=== PATIENT | male | born 1955 | race American Indian/Alaskan Native ===

== ENCOUNTER 2018-06-18 10:48 | Emergency (ER) | payer MEDICAID, OTHER, SELFPAY ==
[2018-06-18 10:59] VITALS: BP 193/106; PULSE 88; RESP 18; TEMP 36.7; O2SAT 96; BMI 31.3
--- NOTE | 2018-06-18 12:35 | DI.RAD.S_ITS ---
PROCEDURE: XR FOOT RT MIN 3V INDICATIONS: foot pain TECHNIQUE: 3 views of the foot were acquired. COMPARISON: [facility], , FOOT 3V LEFT, 03/05/2017, 13:22. FINDINGS: Bones: No fractures or dislocations. There is mild mid foot degeneration. No suspicious bony lesions. Soft tissues: No tibiotalar joint effusion. Achilles tendon appears normal. IMPRESSION: 1. No fracture or dislocation. Dictated by: Jose Whitmore M.D. on 06/18/2018 at 13:28 Approved by: Jose Whitmroe M.D. on 06/18/2018 at 13:28
[2018-06-18] MEDS: ACETAMINOPHEN 325 MG TABLET 650 MG PO (13:17)
[2018-06-18 14:38] VITALS: BP 189/92; PULSE 83; RESP 20; O2SAT 97
--- NOTE | 2018-06-18 18:42 | ED_ITS ---
HPI - Extremity Problem General Chief complaint: Extremity Problem,Nontraumatic Stated complaint: BONE SPUR RT FOOT Time Seen by Provider: 06/18/18 12:08 Source: patient Mode of arrival: ambulatory Limitations: no limitations History of Present Illness HPI Narrative: patient is a 63-year-old male who presents with bilateral foot pain. He states he has been ongoing for about a week progressively getting worse. He but new insoles for his issues and supportive shoes however it does not seem to help. It seems to be worse at nighttime. He feels like he might have a bone spur. He denies any injury. He does have an on both his feet but more so on the right than the left. MD Complaint: extremity pain Related Data Home Medications Medication Instructions Recorded Confirmed ASPIRIN/DIPYRIDAMOLE (Aggrenox 25 1 cer PO BID #0 05/06/11 MG-200 MG Capsule) amlodipine [Norvasc] 5 mg PO QDAY #0 12/11/12 Previous Rx's Medication Instructions Recorded clindamycin HCl 300 mg PO Q6H #15 cap 01/02/17 prednisone 40 mg PO Q DAY 4 Days #0 tab 01/02/17 tramadol 50 mg PO Q6H PRN #10 tab 06/18/18 Allergies Allergy/AdvReac Type Severity Reaction Status Date / Time celecoxib [From CELEBREX] Allergy Unknown Verified 06/18/18 12:46 lisinopril [LISINOPRIL] Allergy Unknown Verified 06/18/18 12:46 meloxicam [MELOXICAM] Allergy Unknown ANAPHYLAXSI Verified 06/18/18 12:46 S Penicillins [PENICILLINS] Allergy Unknown Verified 06/18/18 12:46 Review of Systems Review of Systems GENERAL: Denies chills,fever HEENT: Denies throat pain RESPIRATORY: Denies dyspnea, cough, wheezing CARDIOVASCULAR: Denies chest pain, palpitations GASTROINTESTINAL: Denies nausea, vomiting MUSCULOSKELETAL: See HPI SKIN: No rash, no laceration, no pruritus NEUROLOGIC: Denies weakness, dizziness, headache, numbness 8 point review of systems is negative except for those stated above and HPI PFSH Medical History Coronary artery disease (Acute) Hypertension (Acute) Social History Smoking Status: Former smoker alcohol intake: never substance use type: does not use Social History Smoking Status: Former smoker alcohol intake: never substance use type: does not use Exam Initial Vital Signs Initial Vital Signs: Vital Signs Temperature 98.1 F 06/18/18 10:59 Pulse Rate 88 06/18/18 10:59 Respiratory Rate 18 06/18/18 10:59 Blood Pressure 193/106 H 06/18/18 10:59 Pulse Oximetry 96 06/18/18 10:59 GENERAL: Well-appearing, well-nourished and in no acute distress. CARDIOVASCULAR: peripheral pulses in tact, cap refill <2 sec RESPIRATORY: No respiratory distress, speaks in full sentences without difficulty EXTREMITIES: Normal range of motion, no clubbing or edema. Neurovascularly intact. - right foot no injury is stable no Achilles pain able to flex and extend. Peripheral pulses intact. NEUROLOGICAL: Cranial nerves II through XII grossly intact. Normal gait and speech. SKIN: Warm, dry, no petechiae, no rashes or lesions. Course Orders Ordered: ED Orders 06/18/18 12:35 XR foot RT min 3V Stat Discontinued Medications Acetaminophen (Tylenol) 650 mg PO NOW ONE Stop: 06/18/18 12:36 Last Admin: 06/18/18 13:17 Dose: 650 mg Vital Signs - 8 hr 06/18/18 10:59 06/18/18 14:38 Temperature 98.1 F Pulse Rate 88 83 Respiratory Rate 18 20 Blood Pressure 193/106 H 189/92 H Pulse Oximetry 96 97 MDM - Extremity (Nontraumatic) Imaging Data Right foot x-ray: Radiologist's impression: PROCEDURE: XR FOOT RT MIN 3V INDICATIONS: foot pain TECHNIQUE: 3 views of the foot were acquired. COMPARISON: [facility], , FOOT 3V LEFT, 03/05/2017, 13:22. FINDINGS: Bones: No fractures or dislocations. There is mild mid foot degeneration. No suspicious bony lesions. Soft tissues: No tibiotalar joint effusion. Achilles tendon appears normal. IMPRESSION: 1. No fracture or dislocation. Dictated by: Jose Whitmore M.D. on 06/18/2018 at 13:28 Discharge Plan Departure Patient Disposition: Home Clinical Impression: Right foot sprain Qualifiers: Encounter type: initial encounter Qualified Code(s): S93.601A - Unspecified sprain of right foot, initial encounter Discharge Date/Time: 06/18/18 14:38 Interventions: ED Discharge Assessment Last Done: 06/18/18 14:38 Activity Restrictions/Additional Instructions: *You have been diagnosed with Right foot sprain *What to do: where good supportive shoes, increase activity as tolerated *Continue to take medications as directed - Tylenol 650 mg every 4-6 hours if needed for mild pain during the day - tramadol 50 mg at night or every 6 hr if needed for severe pain *Follow up with your primary care provider in 2-3 days *Return to ER if you should have increasing pain, numbness, tingling or any new, worsening or concerning symptoms Prescriptions: New tramadol 50 mg tablet 50 mg PO Q6H PRN (Reason: pain) Qty: 10 RF: 0 No Action ASPIRIN/DIPYRIDAMOLE (Aggrenox 25 MG-200 MG Capsule) 1 cer PO BID Qty: 0 RF: 0 amlodipine [Norvasc] 5 MG tablet 5 mg PO QDAY Qty: 0 RF: 0 clindamycin HCl 300 MG capsule 300 mg PO Q6H Qty: 15 RF: 0 prednisone 20 MG tablet 40 mg PO Q DAY 4 Days Qty: 0 RF: 0 Referrals: Margaret Siegel MD [Primary Care Provider] -
== END 2018-06-18 14:38 | disposition home or self-care (01) ==
PROVIDERS: Emergency Provider Emergency Medicine; Family Provider Family Medicine; PCP Family Medicine
DX: S93.601A Unspecified sprain of right foot, initial encounter (principal)
CPT/HCPCS: 73630; 99282; 99283

== ENCOUNTER 2018-11-21 10:38 | Emergency (ER) | payer MEDICAID, OTHER, SELFPAY ==
[2018-11-21 10:41] VITALS: BP 159/82; PULSE 79; RESP 14; TEMP 36.7; O2SAT 99
--- NOTE | 2018-11-21 11:54 | ED.SKABFB ---
HPI - Skin/Abscess/Foreign Bdy <VALERIO Kirby - Last Filed: 11/21/18 20:41> General Chief complaint: Skin/Abscess/Foreign Body Stated complaint: swelling in head Time Seen by Provider: 11/21/18 11:21 Source: patient Mode of arrival: ambulatory Limitations: no limitations History of Present Illness HPI narrative: The patient is a 63-year-old male former smoker with history of CHF who presents with chief complaint of head swelling. He states he fell back in July, had an injury with bruising to his head. He takes Plavix, was knocked out and was evaluated at [facility] emergency department, where he states he received a head CT. He states that the swelling has gone down. However he noticed swelling to his head a few days ago, that is increasingly painful. Seen at [facility] and [place] a few days ago, and had a head CT done. He denies any fevers vomiting or diarrhea. He has not taken anything for the pain. The patient denies any trauma since his initial fall. He has not taken anything for pain. Related Data Home Medications Medication Instructions Recorded Confirmed acetaminophen 1,000 mg PO Q6H PRN 11/21/18 11/21/18 carvedilol 25 mg PO BID 11/21/18 11/21/18 clopidogrel [Plavix] 75 mg PO DAILY 11/21/18 11/21/18 Previous Rx's Medication Instructions Recorded sulfamethoxazole-trimethoprim 1 tab PO BID #14 tab 11/21/18 [Bactrim DS] tramadol 50 mg PO Q6H PRN #7 tab 11/21/18 Allergies Allergy/AdvReac Type Severity Reaction Status Date / Time NSAIDS (Non-Steroidal Allergy Severe Swelling Verified 11/21/18 10:44 Anti-Inflamma of Lip/Tongue/Throat celecoxib [From CELEBREX] Allergy Unknown Verified 11/21/18 10:44 lisinopril [LISINOPRIL] Allergy Unknown Verified 11/21/18 10:44 meloxicam [MELOXICAM] Allergy Unknown ANAPHYLAXSI Verified 11/21/18 10:44 S Penicillins [PENICILLINS] Allergy Unknown Verified 11/21/18 10:44 Review of Systems <VALERIO Kirby - Last Filed: 11/21/18 20:41> Review of Systems GENERAL: Denies chills, fatigue, malaise, fever, sweats. HEENT: Denies sinus pain, ear pain, sore throat, difficulty swallowing, dizziness. RESPIRATORY: Denies dyspnea, cough, wheezing, hemoptysis, sputum. CARDIOVASCULAR: Denies chest pain, palpitations, orthopnea, edema, GASTROINTESTINAL: Denies nausea, vomiting, abdominal pain, diarrhea, constipation, melena. : Denies dysuria, frequency, incontinence, hematuria, urinary retention. MUSCULOSKELETAL: denies weakness, joint pain, or bony pain SKIN: See HPI NEUROLOGIC: Denies weakness, headache, numbness, change in speech, confusion, seizures, incoordination. PSYCHIATRIC: No concerning psychosocial issues. 12 point review of systems is negative except for those stated above PFSH <VALERIO Kirby - Last Filed: 11/21/18 20:41> Medical History Coronary artery disease (Acute) Hypertension (Acute) Social History Smoking Status: Former smoker alcohol intake: never substance use type: does not use Social History Smoking Status: Former smoker alcohol intake: never substance use type: does not use Exam <VALERIO Kirby - Last Filed: 11/21/18 20:41> Narrative Exam Narrative: GENERAL: This is a well-nourished, well-developed patient, in mild distress. HEAD: Atraumatic. Normocephalic. No temporal or scalp tenderness. EYES: Pupils equal round and reactive. Extraocular motions intact. No scleral icterus. No injection or drainage. ENT: Nose without bleeding, purulent drainage or septal hematoma. Throat without erythema, tonsillar hypertrophy or exudate. Uvula midline. Airway patent. NECK: Trachea midline. No JVD or lymphadenopathy. Supple, nontender, no meningeal signs. CARDIOVASCULAR: Regular rate and rhythm without murmurs, gallops, or rubs. RESPIRATORY: Clear to auscultation. Breath sounds equal bilaterally. No wheezes, rales, or rhonchi. No cough. No increased respiratory effort. No accessory muscle use. GASTROINTESTINAL: Abdomen soft, non-tender, nondistended. No hepato-splenomegaly, or palpable masses. No guarding. EXTREMITIES: No clubbing, cyanosis, or edema. No joint tenderness, effusion, or edema noted. BACK: Nontender without deformity or crepitance. No flank tenderness. NEURO: AOx3. SKIN: 2 x 2 cm palpable mass noted right occiput. Firm to palpation. No overt overlying erythema. Initial Vital Signs Initial Vital Signs: Vital Signs Temperature 98.1 F 11/21/18 10:41 Pulse Rate 79 11/21/18 10:41 Respiratory Rate 14 11/21/18 10:41 Blood Pressure 159/82 H 11/21/18 10:41 Pulse Oximetry 99 11/21/18 10:41 <Awilda Romero DO - Last Filed: 11/22/18 19:47> Initial Vital Signs Initial Vital Signs: Vital Signs Temperature 98.1 F 11/21/18 10:41 Pulse Rate 79 11/21/18 10:41 Respiratory Rate 14 11/21/18 10:41 Blood Pressure 159/82 H 11/21/18 10:41 Pulse Oximetry 99 11/21/18 10:41 Course <FAVIO Kirby-BC - Last Filed: 11/21/18 20:41> Course Narrative: Images were obtained as well as an emergency department report from 11/18 at [place]. Illustrate the patient presented with a chief complaint of right occipital swelling and pain. He was initially seen there on August 12, had a head CT which showed a large right posterior scalp hematoma. The patient received a head CT on 11/18, which illustrated no acute intracranial pathology. CT also illustrated an organizing hematoma with no gross skull fracture. I elected to not reimage the patient today. Orders Ordered: ED Orders 11/21/18 13:00 Wound Culture and Gram Stain Stat Vital Signs - 8 hr 11/21/18 10:41 Temperature 98.1 F Pulse Rate 79 Respiratory Rate 14 Blood Pressure 159/82 H Pulse Oximetry 99 <Awilda Romero DO - Last Filed: 11/22/18 19:47> Orders Ordered: ED Orders 11/21/18 13:00 Wound Culture and Gram Stain Stat Vital Signs - 8 hr 11/21/18 10:41 Temperature 98.1 F Pulse Rate 79 Respiratory Rate 14 Blood Pressure 159/82 H Pulse Oximetry 99 MDM - Skin/Abscess/Foreign Bdy <Awildasangeeta RappALICIAP-BC - Last Filed: 11/21/18 20:41> [facility] Narrative Medical decision making narrative: The patient's abscess spontaneously burst injury and copious purulence drainage, it was cleansed in a wound culture was obtained. I placed him on Bactrim. I did give him a prescription of tramadol for pain. Encouraged [id number] medications as needed and able. Discussed the tramadol can be constipating and sedating. Wound cultures pending at this time. Discussed at length follow up with PCP. Discussed coming back to the ER for any acute signs of infection such as fever, inability keep down fluids etc. Discharge Plan Departure Patient Disposition: Home Clinical Impression: Abscess Discharge Date/Time: 11/21/18 12:58 Interventions: ED Discharge Assessment Last Done: 11/21/18 12:58 Instructions: DI for Skin Abscess Activity Restrictions/Additional Instructions: I have placed you on antibiotics. A wound cultures pending at this time. If we need to change antibiotics, we will give you a call. I have given you a prescription of prescription pain medication. Be aware this can be constipating and sedating. Please monitor for fever, vomiting etc. Please come back to the ER for any acute concerns. Please follow up with primary care provider in the next few days. Prescriptions: New sulfamethoxazole-trimethoprim [Bactrim DS] 800-160 mg tablet 1 tab PO BID Qty: 14 RF: 0 tramadol 50 mg tablet 50 mg PO Q6H PRN (Reason: pain) Qty: 7 RF: 0 No Action carvedilol 25 mg Tablet 25 mg PO BID RF: 0 clopidogrel [Plavix] 75 mg Tablet 75 mg PO DAILY RF: 0 acetaminophen 500 mg Tablet 1,000 mg PO Q6H PRN (Reason: Pain (Scale Score 1-3)) RF: 0 Referrals: Margaret Siegel MD [Primary Care Provider] - <Awilda Romero DO - Last Filed: 11/22/18 19:47> Cosign ED Attending Cosluliature Attestation: I was immediately available in the department for consultation. This documentation has been reviewed and I agree with assessment and plan. Supervised by Awilda Romero DO
== END 2018-11-21 12:58 | disposition home or self-care (01) ==
PROVIDERS: Emergency Provider Nurse Practitioner Family; Family Provider Family Medicine; PCP Family Medicine
DX: L02.91 Cutaneous abscess, unspecified (principal)
CPT/HCPCS: 87070; 87147; 87205; 99283

== ENCOUNTER 2019-01-23 20:32 | Emergency (ER) | payer MEDICAID, OTHER, SELFPAY ==
[2019-01-23 20:45] VITALS: BP 137/74; PULSE 67; RESP 16; TEMP 36.9; O2SAT 97; BMI 27.7
[2019-01-23 21:09] VITALS: BP 198/111; PULSE 88; RESP 15; TEMP 36.9; O2SAT 97; BMI 40.7
--- NOTE | 2019-01-23 21:12 | DI.RAD.S_ITS ---
PROCEDURE: XR FOREARM RT 2V INDICATIONS: glf,c/o right hand and forearm pain TECHNIQUE: 2 views of the forearm were acquired. COMPARISON: [facility], , FOREARM RIGHT, 05/02/2007, 12:46. FINDINGS: Bones: No fractures or dislocations. No suspicious bony lesions. Soft tissues: No suspicious soft tissue calcifications or masses. IMPRESSION: No acute osseous abnormality. Dictated by: Jared Mckeon M.D. on 01/23/2019 at 22:29 Approved by: aJred Mckeon M.D. on 01/23/2019 at 22:30
--- NOTE | 2019-01-23 21:12 | DI.RAD.S_ITS ---
PROCEDURE: XR WRIST RT MIN 3V INDICATIONS: glf, c/o right hand and forearm pain TECHNIQUE: 3 views of the wrist were acquired. COMPARISON: [facility], WRIST MINIMUM 3 VIEWS RIGHT, 01/30/2008, 17:36. [facility], WRIST MINIMUM 3 VIEWS RIGHT, 05/02/2007, 12:43. FINDINGS: Bones: No fractures or dislocations. No suspicious bony lesions. Soft tissues: No suspicious soft tissue calcifications. IMPRESSION: No acute osseous abnormality. Dictated by: Jared Mckeon M.D. on 01/23/2019 at 22:26 Approved by: Jared Mckeon M.D. on 01/23/2019 at 22:28
--- NOTE | 2019-01-23 21:12 | DI.RAD.S_ITS ---
PROCEDURE: XR HAND RT MIN 3V INDICATIONS: glf,c/o right hand and forearm pain TECHNIQUE: Pre-views of the hand(s) acquired. COMPARISON: [facility], , HAND 3V RIGHT, 05/02/2007, 12:41. FINDINGS: Bones: No fractures or dislocations. Carpal bones are normally aligned. Mild degenerative change. No suspicious bony lesions. Soft tissues: No suspicious soft tissue calcifications. IMPRESSION: No acute osseous abnormality. Dictated by: Jared Mckeon M.D. on 01/23/2019 at 22:28 Approved by: Jared Mckeon M.D. on 01/23/2019 at 22:29
--- NOTE | 2019-01-23 22:49 | PC.NURSE ---
Pt states cannot move hand very much secondary to pain. Having tenderness to hand and wrist as well as proximal forearm and shoulder all on right side. Radial pulses strong, equal, and cap refill is less than 2 seconds.
--- NOTE | 2019-01-23 23:08 | ED_ITS ---
HPI - Extremity Injury (Upper) General Chief Complaint: Extremity Injury, Upper Stated Complaint: rt hand injury s/p fall Time Seen by Provider: 01/23/19 22:59 Source: patient Mode of arrival: Ambulatory Limitations: no limitations History of Present Illness HPI narrative: The patient stumbled while walking down steps at home about 2 hours prior to arrival. He read on the ground on outstretched hands. There was no head, neck or torso injury. He complains of right arm pain only. The left arm is unaffected. He primarily has right elbow, right wrist and hand pain. He has normal range of motion the right shoulder. He has limited range of motion of the right elbow and right wrist due to pain. He is right-hand dominant. Has taken nothing for pain. He has no numbness or tingling in the right fingers. Related Data Home Medications Medication Instructions Recorded Confirmed acetaminophen 1,000 mg PO Q6H PRN 11/21/18 11/21/18 carvedilol 25 mg PO BID 11/21/18 11/21/18 clopidogrel [Plavix] 75 mg PO DAILY 11/21/18 11/21/18 Previous Rx's Medication Instructions Recorded sulfamethoxazole-trimethoprim 1 tab PO BID #14 tab 11/21/18 [Bactrim DS] tramadol 50 mg PO Q6H PRN #7 tab 11/21/18 tramadol 50 mg PO Q6-8H PRN #20 tab 01/23/19 Allergies Allergy/AdvReac Type Severity Reaction Status Date / Time NSAIDS (Non-Steroidal Allergy Severe Swelling Verified 01/23/19 21:09 Anti-Inflamma of Lip/Tongue/Throat celecoxib [From CELEBREX] Allergy Unknown Verified 01/23/19 21:09 lisinopril [LISINOPRIL] Allergy Unknown Verified 01/23/19 21:09 meloxicam [MELOXICAM] Allergy Unknown ANAPHYLAXSI Verified 01/23/19 21:09 S Penicillins [PENICILLINS] Allergy Unknown Verified 01/23/19 21:09 Review of Systems Review of Systems ROS Unobtainable: All systems reviewed & are unremarkable except as noted in HPI and below Constitutional Constitutional: Denies fever(s), Denies lethargy and Denies weakness Comments: No other injuries. ENT Comments: No complaints Cardiovascular Cardiovascular: Denies chest pain, Denies lightheadedness, Denies palpitations and Denies dyspnea Respiratory Respiratory: Denies dyspnea Musculoskeletal Musculoskeletal: Reports as per HPI, Denies back pain, Denies numbness and Denies tingling Integumentary/Breasts Skin/Breast: Denies erythema and Denies rash Neurologic Neurologic: Denies numbness, Denies tingling and Denies weakness Endocrine Endocrine: Denies palpitations PFS Social History Smoking Status: Unknown if ever smoked alcohol intake: never substance use type: does not use Social History Smoking Status: Unknown if ever smoked alcohol intake: never substance use type: does not use Exam Initial Vital Signs Initial Vital Signs: Vital Signs Temperature 98.5 F 01/23/19 20:45 Pulse Rate 67 01/23/19 20:45 Respiratory Rate 16 01/23/19 20:45 Blood Pressure 137/74 01/23/19 20:45 Pulse Oximetry 97 01/23/19 20:45 Const General: cooperative and well developed Nutritional Appearance: well nourished Orientation: alert, awake and oriented x3 [facility] Head: normocephalic and atraumatic Face and sinus: no sinus tenderness Throat: tonsils normal and uvula midline Skin General: no rashes or lesions noted, No jaundice and No petechiae Neuro General: alert, oriented x3, gait normal and no focal motor deficits Speech: speech normal Extrem Other: The right shoulder in a firmer nontender. He has tenderness in the right elbow with decreased motion due to pain. He will not allow me to flex the elbow beyond 90?. There are no palpable abnormalities or edema to the right elbow. The forearm is atraumatic. Likewise, he has pain to the right wrist, he will not allow me to manipulate the wrist. He has flexion-extension in the right digits, but complained of pain. The right hand is neurovascularly intact. Course Orders Ordered: ED Orders 01/23/19 21:12 XR forearm RT 2V Stat XR hand RT min 3V Stat XR wrist RT min 3V Stat 01/23/19 23:13 XR elbow RT min 3V Stat Discontinued Medications Tramadol HCl (Ultram 50mg Prepack) 1 bottle MISC SEEINSTR ONE Stop: 01/23/19 23:08 Last Admin: 01/23/19 23:35 Dose: 1 bottle Documented by: LONNY Vital Signs Vital signs: Vital Signs - 8 hr 01/23/19 20:45 01/23/19 21:09 Temperature 98.5 F 98.5 F Pulse Rate 67 88 Respiratory Rate 16 15 Blood Pressure 137/74 198/111 H Pulse Oximetry 97 97 MDM - Extremity Injury (Upper) Imaging Data Right elbow:: My impression: Normal. No fractures. Right forearm x-ray:: Radiologist's impression: No acute bony injury. Right wrist:: Radiologist's impression: No acute bony injury. Right hand:: Radiologist's impression: No acute bony injury Discharge Plan Departure Patient Disposition: Home Clinical Impression: Other sprain of right elbow, initial encounter Right wrist sprain Qualifiers: Encounter type: initial encounter Qualified Code(s): S63.501A - Unspecified sprain of right wrist, initial encounter Instructions: DI for Wrist Sprain, DI for Elbow Pain Activity Restrictions/Additional Instructions: Take Tylenol or Advil as needed for pain. Tramadol every 6 hours for added pain control. Use the sling as needed. Periodically take the arm from the sling and stretch and move the arm about. Follow-up with her doctor in 10 days if no better. Return here if necessary. Prescriptions: New tramadol 50 mg tablet 50 mg PO Q6-8H PRN (Reason: pain) Qty: 20 RF: 0 No Action carvedilol 25 mg Tablet 25 mg PO BID RF: 0 clopidogrel [Plavix] 75 mg Tablet 75 mg PO DAILY RF: 0 acetaminophen 500 mg Tablet 1,000 mg PO Q6H PRN (Reason: Pain (Scale Score 1-3)) RF: 0 sulfamethoxazole-trimethoprim [Bactrim DS] 800-160 mg tablet 1 tab PO BID Qty: 14 RF: 0 tramadol 50 mg tablet 50 mg PO Q6H PRN (Reason: pain) Qty: 7 RF: 0 Referrals: Margaret Siegel MD [Primary Care Provider] -
--- NOTE | 2019-01-23 23:13 | DI.RAD.S_ITS ---
PROCEDURE: XR ELBOW RT MIN 3V INDICATIONS: Fall. Right elbow pain TECHNIQUE: 3 views of the elbow were acquired. COMPARISON: None. FINDINGS: Bones: No acute fractures or dislocations. Cortical irregularity along the medial epicondyle of the distal right humerus is noted and may represent sequela of chronic medial epicondylitis. No suspicious bony lesions. Soft tissues: No elbow joint effusion. No suspicious soft tissue calcifications. IMPRESSION: Right elbow without acute osseous abnormalities. If there is persistent clinical concern for occult fracture given adequate mechanism of injury, consider repeat imaging in 10-14 days. Dictated by: Jayant Nugent M.D. on 01/24/2019 at 8:03 Approved by: Jayant Nugent M.D. on 01/24/2019 at 8:06
[2019-01-23] MEDS: TRAMADOL 50 MG PREPACK 1 BOTTLE MISC (23:35)
[2019-01-23 23:50] VITALS: BP 185/111; PULSE 81; TEMP 36.6; O2SAT 99
== END 2019-01-23 23:50 | disposition home or self-care (01) ==
PROVIDERS: Emergency Provider Emergency Medicine; Family Provider Family Medicine; PCP Family Medicine
DX: S63.501A Unspecified sprain of right wrist, initial encounter (principal); W10.8XXA Fall (on) (from) other stairs and steps, initial encounter
CPT/HCPCS: 73080; 73090; 73110; 73130; 99282; 99283

== ENCOUNTER 2019-01-24 10:00 | Emergency (ER) | payer MEDICAID, OTHER, SELFPAY ==
[2019-01-24 10:14] VITALS: BP 194/106; PULSE 89; RESP 17; TEMP 36.8; O2SAT 97; BMI 40.7
--- NOTE | 2019-01-24 10:42 | ED.UPPEXIN ---
HPI - Extremity Injury (Upper) General Chief Complaint: Extremity Injury, Upper Stated Complaint: R arm pain was seen yesturday med isnt working Time Seen by Provider: 01/24/19 10:19 Source: patient Mode of arrival: Ambulatory History of Present Illness HPI narrative: 63-year-old male who presents with right arm pain. He was seen evaluated last night after he fell. He had x-rays forearm hand wrist and elbow. He was given tramadol for pain. He states he took tramadol Tylenol and iced it last night however his elbow a still hurts. He has some numbness in his thumb but he is able to move it. Requesting something more for pain. Related Data Home Medications Medication Instructions Recorded Confirmed acetaminophen 1,000 mg PO Q6H PRN 11/21/18 11/21/18 carvedilol 25 mg PO BID 11/21/18 11/21/18 clopidogrel [Plavix] 75 mg PO DAILY 11/21/18 11/21/18 Previous Rx's Medication Instructions Recorded sulfamethoxazole-trimethoprim 1 tab PO BID #14 tab 11/21/18 [Bactrim DS] tramadol 50 mg PO Q6H PRN #7 tab 11/21/18 tramadol 50 mg PO Q6-8H PRN #20 tab 01/23/19 Allergies Allergy/AdvReac Type Severity Reaction Status Date / Time NSAIDS (Non-Steroidal Allergy Severe Swelling Verified 01/24/19 10:14 Anti-Inflamma of Lip/Tongue/Throat celecoxib [From CELEBREX] Allergy Unknown Verified 01/24/19 10:14 lisinopril [LISINOPRIL] Allergy Unknown Verified 01/24/19 10:14 meloxicam [MELOXICAM] Allergy Unknown ANAPHYLAXSI Verified 01/24/19 10:14 S Penicillins [PENICILLINS] Allergy Unknown Verified 01/24/19 10:14 Review of Systems Review of Systems Narrative: GENERAL: Denies chills,fever HEENT: Denies throat pain RESPIRATORY: Denies dyspnea, cough, wheezing CARDIOVASCULAR: Denies chest pain, palpitations GASTROINTESTINAL: Denies nausea, vomiting MUSCULOSKELETAL: See HPI SKIN: No rash, no laceration, no pruritus NEUROLOGIC: Denies weakness, dizziness, headache, numbness 8 point review of systems is negative except for those stated above and HPI [facility] Medical History Coronary artery disease (Acute) Hypertension (Acute) Social History Smoking Status: Unknown if ever smoked alcohol intake: never substance use type: does not use Social History Smoking Status: Unknown if ever smoked alcohol intake: never substance use type: does not use Exam Initial Vital Signs Initial Vital Signs: Vital Signs Temperature 98.2 F 01/24/19 10:14 Pulse Rate 89 01/24/19 10:14 Respiratory Rate 17 01/24/19 10:14 Blood Pressure 194/106 H 01/24/19 10:14 Pulse Oximetry 97 01/24/19 10:14 GENERAL: Overweight male no acute distress CARDIOVASCULAR: peripheral pulses in tact, cap refill <2 sec RESPIRATORY: No respiratory distress, speaks in full sentences without difficulty EXTREMITIES: Normal range of motion, no clubbing or edema. Neurovascularly intact Right arm in sling. Tender in elbow with pronation and supination. Able to open hand some slightly tender NEUROLOGICAL: Cranial nerves II through XII grossly intact. Normal gait and speech. SKIN: Warm, dry, no petechiae, no rashes or lesions. Course Orders Ordered: Discontinued Medications Morphine Sulfate (Morphine) 4 mg IM NOW ONE Stop: 01/24/19 10:52 Last Admin: 01/24/19 11:00 Dose: 4 mg Documented by: ISHAN Vital Signs Vital signs: Vital Signs - 8 hr 01/24/19 10:14 01/24/19 11:37 Temperature 98.2 F Pulse Rate 89 88 Respiratory Rate 17 16 Blood Pressure 194/106 H 188/98 H Pulse Oximetry 97 97 MDM - Extremity Injury (Upper) MDM Narrative Medical decision making narrative: Patient had x-rays. He has no pain in his shoulder. No fracture identified. Will give pain control in the emergency department. Discharge Plan Departure Patient Disposition: Home Clinical Impression: Sprain of upper arm, right Qualifiers: Encounter type: initial encounter Qualified Code(s): S53.401A - Unspecified sprain of right elbow, initial encounter Discharge Date/Time: 01/24/19 11:35 Instructions: DI for Elbow Sprain Activity Restrictions/Additional Instructions: *You have been diagnosed with right arm sprain *What to do: Recommend that he take arm out of sling increase activity as tolerated. It will be sore for the next few days ice 20-30 minutes at a time *Continue to take medications as directed Continue tramadol as previously prescribed Tylenol 650 mg every 4-6 hours if needed for pain *Follow up with your primary care provider in 2-3 days *Return to ER if you should have weakness in hand, numbness, tingling, increased pain or any new, worsening or concerning symptoms Prescriptions: No Action carvedilol 25 mg Tablet 25 mg PO BID RF: 0 clopidogrel [Plavix] 75 mg Tablet 75 mg PO DAILY RF: 0 acetaminophen 500 mg Tablet 1,000 mg PO Q6H PRN (Reason: Pain (Scale Score 1-3)) RF: 0 sulfamethoxazole-trimethoprim [Bactrim DS] 800-160 mg tablet 1 tab PO BID Qty: 14 RF: 0 tramadol 50 mg tablet 50 mg PO Q6H PRN (Reason: pain) Qty: 7 RF: 0 tramadol 50 mg tablet 50 mg PO Q6-8H PRN (Reason: pain) Qty: 20 RF: 0 Referrals: Margaret Siegel MD [Primary Care Provider] -
[2019-01-24] MEDS: MORPHINE 4 MG/ML INJ IM (11:00)
--- NOTE | 2019-01-24 11:36 | PC.NURSE ---
pt c/o right elbow and forarm pain. fell yesterday and seen here last night, sling and tramadol given, reports inability to sleep and tramadol not working for pain.
[2019-01-24 11:37] VITALS: BP 188/98; PULSE 88; RESP 16; O2SAT 97
== END 2019-01-24 11:35 | disposition home or self-care (01) ==
PROVIDERS: Emergency Provider Emergency Medicine; Family Provider Family Medicine; PCP Family Medicine
DX: S53.401A Unspecified sprain of right elbow, initial encounter (principal)
CPT/HCPCS: 96372; 99282; 99283; J2270

== ENCOUNTER 2019-02-13 15:19 | Emergency (ER) | payer MEDICAID, OTHER, SELFPAY ==
[2019-02-13 15:21] VITALS: BP 203/108; PULSE 91; RESP 20; TEMP 37.1; O2SAT 99; BMI 40.7
--- NOTE | 2019-02-13 15:24 | DI.RAD.S_ITS ---
PROCEDURE: XR FINGER RT MIN 2V INDICATIONS: slammed in door, pain and open wound TECHNIQUE: AP hand, 2 views of the right third finger(s) acquired. COMPARISON: None. FINDINGS: Bones: No fractures or dislocations. No suspicious bony lesions. Soft tissues: No suspicious soft tissue calcifications. IMPRESSION: No fracture. No osseous lesion. If symptoms and/or clinical suspicion for pathology persists, further assessment with repeat radiographs (7-10 days) or advanced imaging (e.g. CT, MRI or bone scan) may be helpful. Dictated by: Kera Whitehead MD, PhD on 02/13/2019 at 14:37 Approved by: Kera Whitehead MD, PhD on 02/13/2019 at 14:38
[2019-02-13] MEDS: ACETAMINOPHEN 325 MG TABLET 975 MG PO (16:00)
[2019-02-13] MEDS: TET,DIPH,PERTUSS(ACELL),VAC/PF 0.5 ML SYRINGE IM (16:00)
--- NOTE | 2019-02-13 20:38 | ED_ITS ---
HPI - Extremity Injury (Upper) <FAVIO Kirby-BC - Last Filed: 02/13/19 20:46> General Chief Complaint: Extremity Injury, Upper Stated Complaint: SMASHED RIGHT HAND IN DOOR Time Seen by Provider: 02/13/19 15:48 Source: patient Mode of arrival: Ambulatory Limitations: no limitations History of Present Illness HPI narrative: The patient is a 63-year-old male marijuana user with history of dental infection who presents with a chief complaint of a 3rd digit right hand injury. He states he closed in a door. Does not know when his last tetanus was. States that he has a cut over his finger and that his finger hurts. When I was interviewing the patient, he answered a phone call and pursued a conversation on the phone, making my interview difficult. Related Data Home Medications Medication Instructions Recorded Confirmed acetaminophen 1,000 mg PO Q6H PRN 11/21/18 11/21/18 carvedilol 25 mg PO BID 11/21/18 11/21/18 clopidogrel [Plavix] 75 mg PO DAILY 11/21/18 11/21/18 Previous Rx's Medication Instructions Recorded tramadol 50 mg PO Q6-8H PRN #20 tab 01/23/19 Allergies Allergy/AdvReac Type Severity Reaction Status Date / Time NSAIDS (Non-Steroidal Allergy Severe Swelling Verified 02/13/19 15:23 Anti-Inflamma of Lip/Tongue/Throat celecoxib [From CELEBREX] Allergy Unknown Verified 02/13/19 15:23 lisinopril [LISINOPRIL] Allergy Unknown Verified 02/13/19 15:23 meloxicam [MELOXICAM] Allergy Unknown ANAPHYLAXSI Verified 02/13/19 15:23 S Penicillins [PENICILLINS] Allergy Unknown Verified 02/13/19 15:23 Review of Systems <FAVIO Kirby-BC - Last Filed: 02/13/19 20:46> Review of Systems Narrative: GENERAL: Denies chills, fatigue, malaise, fever, sweats. HEENT: Denies sinus pain, ear pain, sore throat, difficulty swallowing, dizziness. RESPIRATORY: Denies dyspnea, cough, wheezing, hemoptysis, sputum. CARDIOVASCULAR: Denies chest pain, palpitations, orthopnea, edema, GASTROINTESTINAL: Denies nausea, vomiting, abdominal pain, diarrhea, constipation, melena. : Denies dysuria, frequency, incontinence, hematuria, urinary retention. MUSCULOSKELETAL: See HPI SKIN: See HPI NEUROLOGIC: Denies weakness, headache, numbness, change in speech, confusion, seizures, incoordination. PSYCHIATRIC: No concerning psychosocial issues. 12 point review of systems is negative except for those stated above Patient History <VALERIO Kirby - Last Filed: 02/13/19 20:46> Medical History Coronary artery disease (Acute) Hypertension (Acute) Social History Smoking Status: Unknown if ever smoked alcohol intake: never substance use type: does not use Social History Smoking Status: Unknown if ever smoked alcohol intake: never substance use type: does not use alcohol intake frequency: holidays/special occasions only Substance Use Type: marijuana Exam <VALERIO Kirby - Last Filed: 02/13/19 20:46> Narrative Exam Narrative: GENERAL: This is a well-nourished, well-developed patient, no acute distress HEAD: Atraumatic. Normocephalic. No temporal or scalp tenderness. EYES: Pupils equal round and reactive. Extraocular motions intact. No scleral icterus. No injection or drainage. ENT: Nose without bleeding, purulent drainage or septal hematoma. Throat without erythema, tonsillar hypertrophy or exudate. Uvula midline. Airway patent. NECK: Trachea midline. No JVD or lymphadenopathy. Supple, nontender, no meningeal signs. CARDIOVASCULAR: Regular rate and rhythm RESPIRATORY: No cough. No increased respiratory effort. No accessory muscle use. GASTROINTESTINAL: Abdomen soft, non-tender, nondistended. No hepato- splenomegaly, or palpable masses. No guarding. EXTREMITIES: Pain to palpation right 3rd digit. Capillary refill less 2 seconds right 3rd digit in all fingers right hand. Positive radial pulse right hand. 1 cm abrasion noted over dorsal aspect of right finger. NEURO: AOx3. SKIN: No rash or erythema. Initial Vital Signs Initial Vital Signs: Vital Signs Temperature 98.7 F 02/13/19 15:21 Pulse Rate 91 H 02/13/19 15:21 Respiratory Rate 20 02/13/19 15:21 Blood Pressure 203/108 H 02/13/19 15:21 Pulse Oximetry 99 02/13/19 15:21 <Jude Arenas DO - Last Filed: 02/19/19 07:01> Initial Vital Signs Initial Vital Signs: Vital Signs Temperature 98.7 F 02/13/19 15:21 Pulse Rate 91 H 02/13/19 15:21 Respiratory Rate 20 02/13/19 15:21 Blood Pressure 203/108 H 02/13/19 15:21 Pulse Oximetry 99 02/13/19 15:21 Course <VALERIO Kirby - Last Filed: 02/13/19 20:46> Orders Ordered: Discontinued Medications Acetaminophen (Tylenol) 975 mg PO NOW ONE Stop: 02/13/19 15:52 Last Admin: 02/13/19 16:00 Dose: 975 mg Documented by: CANDELARIA Diphtheria/Tetanus/Acell Pertussis (Adacel) 0.5 ml IM .ONCE ONE Stop: 02/13/19 15:52 Last Admin: 02/13/19 16:00 Dose: 0.5 ml Documented by: CANDELARIA Vital Signs Vital signs: Vital Signs - 8 hr 02/13/19 15:21 Temperature 98.7 F Pulse Rate 91 H Respiratory Rate 20 Blood Pressure 203/108 H Pulse Oximetry 99 <Jude Arenas DO - Last Filed: 02/19/19 07:01> Orders Ordered: Discontinued Medications Acetaminophen (Tylenol) 975 mg PO NOW ONE Stop: 02/13/19 15:52 Last Admin: 02/13/19 16:00 Dose: 975 mg Documented by: CANDELARIA Diphtheria/Tetanus/Acell Pertussis (Adacel) 0.5 ml IM .ONCE ONE Stop: 02/13/19 15:52 Last Admin: 02/13/19 16:00 Dose: 0.5 ml Documented by: CANDELARIA Vital Signs Vital signs: Vital Signs - 8 hr 02/13/19 15:21 Temperature 98.7 F Pulse Rate 91 H Respiratory Rate 20 Blood Pressure 203/108 H Pulse Oximetry 99 MDM - Extremity Injury (Upper) <VALERIO Kirby - Last Filed: 02/13/19 20:46> Imaging Data Finger x-ray: Radiologist's impression: [address] [address] XRay Report Signed Patient: Octaviano Jj Jr CMR#: [id number] : 5Acct:[id number] Age/Sex: 63 / MDate of Service: 02/13/19 Loc: ED Accession Number: [id number] Procedure: XR finger RT min 2V Ordering Provider: Jude Arenas D.O. PROCEDURE: XR FINGER RT MIN 2V INDICATIONS: slammed in door, pain and open wound TECHNIQUE: AP hand, 2 views of the right third finger(s) acquired. COMPARISON: None. FINDINGS: Bones: No fractures or dislocations. No suspicious bony lesions. Soft tissues: No suspicious soft tissue calcifications. IMPRESSION: No fracture. No osseous lesion. If symptoms and/or clinical suspicion for pathology persists, further assessment with repeat radiographs (7-10 days) or advanced imaging (e.g. CT, MRI or bone scan) may be helpful. Dictated by: Kera Whitehead MD, PhD on 02/13/2019 at 14:37 Approved by: Kera Whitehead MD, PhD on 02/13/2019 at 14:38 [facility] Narrative Medical decision making narrative: The patient is a 63-year-old male who presents with a chief complaint of a finger injury after closing his finger in a door. He has a negative x-ray. He is neurovascularly intact. Believe it is a contusion at this point. His wound was dressed by nursing. I discussed at length coming back to the emergency department for any acute concerns such as decreased circulation was finger, encouraged rest ice compression elevation as well as [id number] pain medications as needed and able. Encouraged at length follow up with primary care provider. Patient states understanding and has no questions or concerns upon discharge. Discharge Plan Departure Patient Disposition: Home Clinical Impression: Abrasion Contusion of finger Qualifiers: Encounter type: initial encounter Finger: middle finger Damage to nail status: without damage Laterality: right Qualified Code(s): S60.031A - Contusion of right middle finger without damage to nail, initial encounter Discharge Date/Time: 02/13/19 16:54 Instructions: Minor Wounds (Alternative Therapy), DI for Contusion, How To Perform RICE (Rest, Ice, Compress, Elevate) Activity Restrictions/Additional Instructions: Your x-ray came back negative for any fracture. Please use rest ice compression elevation as well as [id number] pain medications as needed And able. Please come back to the emergency department for any acute concerns such as lack of blood flow to the finger tip. Please monitor your laceration for signs and symptoms of infection such as redne ss and pus. Please follow up with primary care provider. Prescriptions: No Action carvedilol 25 mg Tablet 25 mg PO BID RF: 0 clopidogrel [Plavix] 75 mg Tablet 75 mg PO DAILY RF: 0 acetaminophen 500 mg Tablet 1,000 mg PO Q6H PRN (Reason: Pain (Scale Score 1-3)) RF: 0 tramadol 50 mg tablet 50 mg PO Q6-8H PRN (Reason: pain) Qty: 20 RF: 0 Referrals: Margaret Siegel MD [Primary Care Provider] - <Jude Arenas DO - Last Filed: 02/19/19 07:01> Sign Out Provider Sign Out Attestation: I was available for consultation during this patient's emergency department visit. This chart is signed by myself for administrative purposes only. I did not have direct contact with this patient during this visit. They were seen independently by the APC.
== END 2019-02-13 16:54 | disposition home or self-care (01) ==
PROVIDERS: Emergency Provider Nurse Practitioner Family; Family Provider Family Medicine; PCP Family Medicine
DX: S60.031A Contusion of right middle finger without damage to nail, initial encounter (principal); W23.0XXA Caught, crushed, jammed, or pinched between moving objects, initial encounter
CPT/HCPCS: 73140; 90471; 99283; 90715

== ENCOUNTER 2019-04-13 19:41 | Emergency (ER) | payer MEDICAID, OTHER, SELFPAY ==
--- NOTE | 2019-04-13 19:53 | ED.GENADULT ---
HPI - General Adult General Chief complaint: Fall Stated complaint: FALL LEFT SIDE OF FACE SWELLING Time Seen by Provider: 04/13/19 19:45 Source: patient Mode of arrival: Ambulatory Limitations: no limitations History of Present Illness HPI narrative: Patient is a 63-year-old male here for evaluations of injuries that he sustained after a fall. He states that he was on [place] and slipped and fell. He states that he hit the left side of his face and then his right side. There was no loss of consciousness. Was ambulatory afterwards. Immediately started having swelling on the left side of his face. Does have pain on his right flank area that is causing him to have some shortness of breath. Reports no other injuries from the event Related Data Home Medications Medication Instructions Recorded Confirmed acetaminophen 1,000 mg PO Q6H PRN 11/21/18 11/21/18 carvedilol 25 mg PO BID 11/21/18 11/21/18 clopidogrel [Plavix] 75 mg PO DAILY 11/21/18 11/21/18 Previous Rx's Medication Instructions Recorded tramadol 50 mg PO Q6-8H PRN #20 tab 01/23/19 hydrocodone-acetaminophen [Mission] 1 tab PO Q4-6H PRN #20 tab 04/13/19 Allergies Allergy/AdvReac Type Severity Reaction Status Date / Time NSAIDS (Non-Steroidal Allergy Severe Swelling Verified 02/13/19 15:23 Anti-Inflamma of Lip/Tongue/Throat celecoxib [From CELEBREX] Allergy Unknown Verified 02/13/19 15:23 lisinopril [LISINOPRIL] Allergy Unknown Verified 02/13/19 15:23 meloxicam [MELOXICAM] Allergy Unknown ANAPHYLAXSI Verified 02/13/19 15:23 S Penicillins [PENICILLINS] Allergy Unknown Verified 02/13/19 15:23 Review of Systems Constitutional Constitutional: Denies fever(s) and Denies headache(s) Eyes Comments: Swelling around the left eye ENT Ears, Nose, Mouth, and Throat: Denies headache(s) Comments: Facial swelling Cardiovascular Cardiovascular: Denies chest pain and Denies dyspnea Comments: Right-sided flank/back pain Respiratory Respiratory: Denies dyspnea Gastrointestinal Gastrointestinal: Denies abdominal pain and Denies vomiting Musculoskeletal Musculoskeletal: Denies back pain, Denies myalgias and Denies arthralgias Integumentary/Breasts Comments: Swelling and erythema left-sided face Neurologic Neurologic: Denies behavioral changes and Denies headache(s) Psychiatric Psychiatric: Denies behavioral changes Hematologic/Lymphatic Hematologic/Lymphatic: Denies easy bleeding and Denies easy bruising Allergic/Immunologic Allergic/Immunologic: Denies urticaria Patient History Medical History Coronary artery disease (Acute) Hypertension (Acute) Social History Smoking Status: Never smoker alcohol intake: never substance use type: does not use Smoking Status: Unknown if ever smoked alcohol intake frequency: holidays/special occasions only Substance Use Type: marijuana Exam Initial Vital Signs Initial Vital Signs: Vital Signs Temperature 98.4 F 04/13/19 20:03 Pulse Rate 102 H 04/13/19 20:03 Respiratory Rate 18 04/13/19 20:03 Blood Pressure 181/77 H 04/13/19 20:03 Pulse Oximetry 97 04/13/19 20:03 Const General: cooperative, well developed and well groomed Orientation: alert, awake and oriented x3 HENMT Head: No abrasion, contusion (Left-sided face), No hematoma, No laceration, No palpable skull fracture and No scalp lesion Ears: TM's normal bilaterally Nose: external nose normal Face and sinus: face asymmetric, ecchymosis on the left, erythema on the left, edema on the left and no lacerations Mouth: oral mucosae normal and abnormal TMJ (Pain on the left) Throat: posterior oropharynx normal Eyes Other: Right eye unremarkable, left eye unable to be evaluated secondary to the level of the swelling. Chest Chest: No crepitus Other: Does have tenderness to palpation right flank/posterior axillary line mid ribs Resp Effort & Inspection: normal respiratory effort Auscultation: clear to auscultation bilaterally Cardio Rate: regular rate Rhythm: regular rhythm GI Inspection: non-distended Palpation: soft Skin Other: Patient with ecchymosis and swelling left side of his face from just above his left eye down to his mid cheek. He goes from midline nose over to in front of his ear. Neuro General: alert, awake and oriented x3 Cognition: normal cognition Speech: speech normal Gait: normal gait Extrem General: normal to inspection and capillary refill normal Psych Appearance: grossly normal and well kempt Scores GCS [place] coma scale eye opening: Spontaneous [place] coma scale verbal response: Orientated [place] coma scale motor response: Obey commands [place] coma scale total score: 15 Nexus Score for C-Spine Focal Neurologic deficit present: No Midline spinal tenderness present: No Altered level of conciousness present: No Intoxication present: No Distracting Injury Present: No Nexus Criteria for C-spine: 0 Course Orders Ordered: ED Orders 04/13/19 19:54 CT facial bones wo con Stat XR ribs RT min 3V w CXR1V Stat 04/13/19 20:10 CT head/brain wo con Stat Discontinued Medications Hydrocodone Bitart/Acetaminophen (Mission 5/325) 1 tab PO NOW ONE Stop: 04/13/19 20:57 Last Admin: 04/13/19 21:00 Dose: 1 tab Documented by: GERALD Hydrocodone Bitart/Acetaminophen (Vicodin 5/325 Prepack) 1 bottle MISC SEEINSTR ONE Stop: 04/13/19 21:16 Last Admin: 04/13/19 21:25 Dose: 1 bottle Documented by: LONNY Vital Signs Vital signs: Vital Signs - 8 hr 04/13/19 20:03 04/13/19 21:27 Temperature 98.4 F Pulse Rate 102 H 98 H Respiratory Rate 18 Blood Pressure 181/77 H 192/99 H Pulse Oximetry 97 95 Medical Decision Making Imaging Data CT face: Radiologist's impression: [place] [address] CT Scan Report Signed Patient: Octaviano Jj Jr CMR#: [id number] : 5Acct:[id number] Age/Sex: 63 / MDate of Service: 04/13/19 Loc: ED Accession Number: [id number] Procedure: CT facial bones wo con Ordering Provider: Jude Arenas D.O. PROCEDURE: CT FACIAL BONES WO CON INDICATIONS: fall L sided facial swelling TECHNIQUE: Noncontrast 2.5 mm thick axial images acquired from the mandible through the frontal sinuses, with coronal and sagittal reformatting. For radiation dose reduction, the following was used: automated exposure control, adjustment of mA and/or kV according to patient size. COMPARISON: None. FINDINGS: Image quality: Excellent. Bones and teeth: Orbital zamora are intact. Sinus zamora show no fracture or deformity. Nasal bones and septum are intact. Visualized portions of the mandible demonstrate no fractures or subluxation. Zygomatic arches are intact. Pterygoid plates are intact. Visualized portions of the skull base and auditory canals are intact. Sinuses: Paranasal sinuses are aerated, without fluid levels, mucosal thickening, or mucoceles. Mastoid air cells are aerated. Soft tissues: Significant left periorbital soft tissue swelling is seen. There is also soft tissue swelling over anterior aspect of left maxilla with 3.4 x 2.2 x 3.6 cm hematoma within subcutaneous soft tissue. Vascular: Visualized vascular structures appear normal in the absence of contrast. Bony vascular foramina and canals are intact. IMPRESSION: 1. Marked left periorbital soft tissue swelling and a soft tissue swelling with a subcutaneous soft tissue hematoma along anterior aspect of the maxilla. 2. No acute orbital wall fracture. Bilateral orbital globes are intact. 3. No acute facial bone or nasal bone fracture. Nasal septum is midline. Bilateral paranasal sinuses are well aerated. Dictated by: Jaime Dong M.D. on 04/13/2019 at 20:19 Approved by: Jaime Dong M.D. on 04/13/2019 at 20:34 Rib x-ray: Radiologist's impression: [place] [address] XRay Report Signed Patient: Octaviano Jj Jr [facility]#: [id number] : 5Acct:[id number] Age/Sex: 63 / MDate of Service: 04/13/19 Loc: ED Accession Number: [id number] Procedure: XR ribs RT min 3V w CXR1V Ordering Provider: Jude Arenas D.O. PROCEDURE: XR RIBS RT MIN 3V W CXR 1V INDICATIONS: fall with rib pain TECHNIQUE: 2 views of the right ribs were acquired, along with a single view chest. COMPARISON: None. FINDINGS: Surgical changes and devices: None. Bones and chest wall: Acute oblique fracture involving right lateral eighth rib is seen with minimal displacement at fracture site. No other fracture is noted. No suspicious bony lesions. Overlying soft tissues appear unremarkable. Lungs and pleura: No pleural effusions or pneumothorax. Lungs appear clear. Mediastinum: Mediastinal contours appear normal. Heart size is enlarged. IMPRESSION: Acute slightly displaced right posterior lateral eighth rib fracture. No acute cardiopulmonary pathology. Dictated by: Jaime Dong M.D. on 04/13/2019 at 20:24 Approved by: Jaime Dong M.D. on 04/13/2019 at 20:[address]: Radiologist's impression: Octaviano Jj Jr 63 M [address] [address] [address] Scan Report Signed Patient: Octaviano Jj Jr CMR#: [id number] : 5Acct:[id number] Age/Sex: 63 / MDate of Service: 04/13/19 Loc: ED Accession Number: [id number] Procedure: CT head/brain wo con Ordering Provider: Jude Arenas D.O. PROCEDURE: CT HEAD/BRAIN WO CON INDICATIONS: fall and hit head TECHNIQUE: Noncontrast 4.5 mm thick angled axial sections acquired from the foramen magnum to the vertex, with coronal and sagittal reformats. For radiation dose reduction, the following was used: automated exposure control, adjustment of mA and/or kV according to patient size. COMPARISON: [facility], CT, HEAD WITHOUT CONTRAST, 07/03/2008, 17:24. FINDINGS: Image quality: Excellent. CSF spaces: Basal cisterns are patent. No extra-axial fluid collections. The ventricles are symmetric in size and shape. Brain: No intracranial bleeds or masses. There is cerebral volume loss for age, with resultant ventricular and sulcal prominence. There are periventricular and deep white matter chronic small vessel ischemic changes. There is intracranial internal carotid artery atherosclerosis. Skull and face: Marked left periorbital soft tissue swelling is seen. A right posterior parietal scalp swelling and hematoma is also noted. No gross acute skull fracture. Sinuses: Visualized sinuses and mastoids are clear. IMPRESSION: 1. Evidence of acute intracranial pathology. 2. Left periorbital soft tissue swelling and right posterior parietal scalp hematoma and swelling. No gross acute skull fracture or orbital wall fracture. Dictated by: Jaime Dong M.D. on 04/13/2019 at 20:35 Approved by: Jaime Dong M.D. on 04/13/2019 at 20:36 MDM Narrative Medical decision making narrative: Head and facial CT shows no signs of acute fractures. Does have significant amount of swelling along the left side of his face. I've made it impossible to evaluate his left eye due to the swelling. Patient states that his eye does not hurt it is the area around his eye. He does have a right-sided rib fracture. This does correspond the location of his pain. Lung underlying this is unremarkable. We did discuss pain control. We did discuss icing the left side of his face. We discussed return precautions and follow-up instructions. He expressed understanding and agreement with plan Discharge Plan Departure Patient Disposition: Home Clinical Impression: Closed rib fracture Qualifiers: Encounter type: initial encounter Rib fracture type: single rib Laterality: right Qualified Code(s): S22.31XA - Fracture of one rib, right side, initial encounter for closed fracture Contusion of face Qualifiers: Encounter type: initial encounter Qualified Code(s): S00.83XA - Contusion of other part of head, initial encounter Fall Qualifiers: Encounter type: initial encounter Qualified Code(s): W19.XXXA - Unspecified fall, initial encounter Discharge Date/Time: 04/13/19 21:28 Instructions: DI for Rib Fracture, DI for Contusion Activity Restrictions/Additional Instructions: Take the pain medication as directed. I do recommend that you keep ice over the left side of your face to help reduce the swelling. You do need to contact your primary provider for follow-up. Return to the emergency department for any new or worsening symptoms Prescriptions: New hydrocodone-acetaminophen [Mission] 5-325 mg tablet 1 tab PO Q4-6H PRN (Reason: pain) Qty: 20 RF: 0 No Action carvedilol 25 mg Tablet 25 mg PO BID RF: 0 clopidogrel [Plavix] 75 mg Tablet 75 mg PO DAILY RF: 0 acetaminophen 500 mg Tablet 1,000 mg PO Q6H PRN (Reason: Pain (Scale Score 1-3)) RF: 0 tramadol 50 mg tablet 50 mg PO Q6-8H PRN (Reason: pain) Qty: 20 RF: 0 Referrals: Margaret Siegel MD [Primary Care Provider] -
[2019-04-13 20:03] VITALS: BP 181/77; PULSE 102; RESP 18; TEMP 36.9; O2SAT 97; BMI 40.7
--- NOTE | 2019-04-13 20:10 | DI.CT.S_ITS ---
PROCEDURE: CT HEAD/BRAIN WO CON INDICATIONS: fall and hit head TECHNIQUE: Noncontrast 4.5 mm thick angled axial sections acquired from the foramen magnum to the vertex, with coronal and sagittal reformats. For radiation dose reduction, the following was used: automated exposure control, adjustment of mA and/or kV according to patient size. COMPARISON: [facility], CT, HEAD WITHOUT CONTRAST, 07/03/2008, 17:24. FINDINGS: Image quality: Excellent. CSF spaces: Basal cisterns are patent. No extra-axial fluid collections. The ventricles are symmetric in size and shape. Brain: No intracranial bleeds or masses. There is cerebral volume loss for age, with resultant ventricular and sulcal prominence. There are periventricular and deep white matter chronic small vessel ischemic changes. There is intracranial internal carotid artery atherosclerosis. Skull and face: Marked left periorbital soft tissue swelling is seen. A right posterior parietal scalp swelling and hematoma is also noted. No gross acute skull fracture. Sinuses: Visualized sinuses and mastoids are clear. IMPRESSION: 1. Evidence of acute intracranial pathology. 2. Left periorbital soft tissue swelling and right posterior parietal scalp hematoma and swelling. No gross acute skull fracture or orbital wall fracture. Dictated by: Jaime Dong M.D. on 04/13/2019 at 20:35 Approved by: Jaime Dong M.D. on 04/13/2019 at 20:36
--- NOTE | 2019-04-13 20:29 | PC.NURSE ---
unable to open left eye to visualize pupil. Eye is swollen shut.
--- NOTE | 2019-04-13 20:31 | PC.NURSE ---
patient reports no c spine mid line tenderness upon palpation.
[2019-04-13] MEDS: HYDROCODONE/ACET 5/325 TABLET 1 TAB PO (21:00)
[2019-04-13] MEDS: HYDROCODONE/ACET 5/325 PREPACK 1 BOTTLE MISC (21:25)
[2019-04-13 21:27] VITALS: BP 192/99; PULSE 98; O2SAT 95
== END 2019-04-13 21:28 | disposition home or self-care (01) ==
PROVIDERS: Emergency Provider Emergency Medicine; Family Provider Family Medicine; PCP Family Medicine
DX: S22.31XA Fracture of one rib, right side, initial encounter for closed fracture (principal); S00.83XA Contusion of other part of head, initial encounter; W01.0XXA Fall on same level from slipping, tripping and stumbling without subsequent striking against object, initial encounter
CPT/HCPCS: 70450; 70486; 71101; 99284

== ENCOUNTER 2019-06-12 15:40 | Observation (INO) | payer MEDICAID, OTHER, SELFPAY ==
--- NOTE | 2019-06-12 15:43 | DI.RAD.S_ITS ---
PROCEDURE: XR CHEST 1V INDICATIONS: SHORTNESS OF BREATH TECHNIQUE: One view of the chest was acquired. COMPARISON: [facility], CR, XR CHEST 2 VIEWS, 04/17/2019, 13:27. [facility], CR, CHEST 2 VIEW, 05/16/2014, 12:30. FINDINGS: Surgical changes and devices: None. Lungs and pleura: Lung volumes are slightly diminished. Minimal patchy bibasilar opacities. No focal consolidations. Mediastinum: The cardiomediastinal contours remain stable with enlargement of the cardiac silhouette. Bones and chest wall: No suspicious bony lesions. Stable appearance of healed rib fracture deformities at the posterior left ribs. Overlying soft tissues appear unremarkable. IMPRESSION: Minimal patchy bibasilar opacities without focal consolidations favored to represent atelectasis given the slightly diminished lung volumes. However, developing airspace disease, aspiration, or early edema not excluded if clinically appropriate. Consider dedicated PA and lateral views of the chest when patient is able. Mild cardiomegaly. Dictated by: Jayant Nugent M.D. on 06/12/2019 at 16:00 Approved by: Jayant Nugent M.D. on 06/12/2019 at 16:03
[2019-06-12 15:50] VITALS: BP 186/88; PULSE 70; RESP 29; TEMP 36.6; O2SAT 99; BMI 40.7
[2019-06-12 16:16] LABS: Add Manual Diff / Slide Review NO; Basophils Absolute Auto 100 /uL (0-100); Basophils Percent Auto 1.3 % (0-2); Eosinophils Absolute Auto 500 /uL (0-450); Eosinophils Percent Auto 6.6 % (2-4); Hematocrit 40.3 % (41-53); Hemoglobin 13.6 g/dL (13.5-17.5); Lymphocytes Absolute Auto 1500 /uL (1100-4500); Lymphocytes Percent Auto 19.5 % (25-40); Mean Corpuscular HGB Conc 33.7 % (30-36); Mean Corpuscular Hemoglobin 29.2 PG (26-34); Mean Corpuscular Volume 86.8 fL (80-100); Monocytes Absolute Auto 600 /uL (0-900); Monocytes Percent Auto 7.4 % (3-14); Neutrophils Absolute Auto 5100 /uL (1500-7000); Neutrophils Percent Auto 65.2 % (50-75); Platelet Count 259 X10^3/uL (150-400); Red Blood Cell Count 4.64 X10^6/uL (4.5-5.9); Red Cell Distribution Width 13.6 % (11.6-14.8); White Blood Cell Count 7.8 X10^3/uL (4.5-11.0)
[2019-06-12 16:23] LABS: INR 1.2 (0.9-1.3); Prothrombin Time 13.3 SECONDS (10.1-12.7)
[2019-06-12 16:25] LABS: PTT Partial Thromboplastin Tim 34 SECONDS (26.4-36.2)
[2019-06-12 16:28] LABS: Alanine Aminotransferase 15 IU/L (<50); Albumin 4.4 g/dL (3.5-5.0); Albumin Globulin Ratio 1.2 (1.0-2.8); Alkaline Phosphatase 108 U/L (38-126); Aspartate Aminotransferase 30 IU/L (17-59); BUN Creatinine Ratio 6.7 (6-22); Bilirubin Total 0.7 mg/dL (0.2-1.3); Blood Urea Nitrogen 6 mg/dL (9-20); Calcium 9.1 mg/dL (8.4-10.2); Carbon Dioxide 30 mmol/L (22-32); Chloride 100 mmol/L (98-107); Estimated Glomerular Filt Rate > 60.0 mL/min (>60); Globulin 3.8 g/dL (1.7-4.1); Glucose 98 mg/dL (80-110); HEMOLYSIS < 15 (0-50); Lipase 1545 U/L (23-300); Potassium 3.1 mmol/L (3.4-5.1); Sodium 142 mmol/L (137-145); Total Protein 8.2 g/dL (6.3-8.2)
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
[2019-06-12 16:41] LABS: NT-proBNP (BNP-Adult 18+) 1270 pg/mL (<125); Troponin I < 0.012 ng/mL (0.01-0.034)
[2019-06-12 16:56] LABS: D Dimer 1094 ng/mL (<230)
--- NOTE | 2019-06-12 17:01 | DI.CT.S_ITS ---
PROCEDURE: CT ANGIO CHEST PE PROTOCOL INDICATIONS: Chest pain, shortness of breath, tachycardia TECHNIQUE: After the administration of intravenous contrast, 2 mm thick sections acquired from the pulmonary apices to the posterior costophrenic angles. 3-dimensional maximum intensity projection (MIP) coronal and sagittal reformats were then acquired through the thorax. For radiation dose reduction, the following was used: automated exposure control, adjustment of mA and/or kV according to patient size. COMPARISON: None. FINDINGS: Image quality: Excellent. Pulmonary arteries: Pulmonary arteries are normal in size, and demonstrate no intraluminal filling defects to suggest central pulmonary embolism. Lungs and pleura: Lung bases demonstrate minor groundglass opacity with interstitial thickening. No dense consolidations. No pleural effusions or pneumothorax. Central and peripheral airways are patent. Mediastinum: There are numerous small shotty mediastinal lymph nodes, particularly in the periesophageal subcarinal region and in the distal aorta esophageal region, however no lymph nodes are enlarged to meet size criteria for adenopathy.. Heart size is mildly enlarged, without pericardial effusion. Thoracic aorta is normal in caliber and enhancement. Esophagus is normal in caliber, without hiatal hernia. Bones and chest wall: No suspicious bony lesions. Ribs and thoracic spine appear intact throughout. Healed right eighth rib fracture. Thyroid gland is normal. No axillary or supraclavicular adenopathy. Abdomen: The visualized upper abdomen demonstrates a liver with an enlarged left lobe. There mildly prominent portacaval and peripancreatic lymph nodes. The spleen size is grossly normal. Gallbladder is surgically absent. IMPRESSION: 1. No pulmonary embolus. 2. No mild cardiomegaly. 3. Findings of early interstitial and trace pulmonary edema the lung bases. No pleural effusions. 4. Enlarged left lobe of the liver. 5. Numerous nonenlarged periesophageal, subcarinal lymph node, and one mildly enlarged periportal lymph nodes. This can be seen in setting of chronic hepatitis or other liver disease. Correlate clinically. Dictated by: Gwen Ho M.D. on 06/12/2019 at 17:55 Approved by: Gwen Ho M.D. on 06/12/2019 at 18:03
[2019-06-12] MEDS: FUROSEMIDE 40 MG/4 ML VIAL IV (17:08)
[2019-06-12 17:17] LABS: Procalcitonin < 0.05 ng/mL (<0.5)
[2019-06-12] MEDS: MORPHINE 4 MG/ML INJ IV (17:39)
[2019-06-12] MEDS: NITROGLYCERIN OINT 1 INCH/GM OINT...G. 0.5 INCH TOP (18:35)
[2019-06-12 19:20] VITALS: BP 181/105; PULSE 65; RESP 18; TEMP 36.8; O2SAT 98
--- NOTE | 2019-06-12 20:07 | DI.ECHO.S_ITS ---
[facility] +---------+ : : [address] [place] : : : : [id number] : : : : Phone: [phone] Echocardiogram Report + + :Name: CUONG DUPONT JR Melgar Study Date: 06/13/2019 Height: 67 in : :[facility] Weight: 260 lb : : Gender: Male BSA: 2.3 m2 : :: 1955 Age: 64 yrs BP: 158/92 mmHg: :Reason For Study: CHF : :Ordering Physician: Lillian : :Hospitalist Performed By: Toshia Upton : :Referring: UMU HERNANDEZ : + + Interpretation Summary Left ventricular systolic function is low normal with the ejection fraction visually estimated to be 50-55%. There are no focal wall motion abnormalities. Left ventricular size is at the upper limits of normal and appears mildly larger and slightly less dynamic compared to the previous study. The right ventricle is not well visualized but grossly appears normal in size with probable normal systolic function and grossly appears unchanged compared to the previous study. Pulmonary artery pressures cannot be estimated because of the lack of a measurable TR jet velocity but the IVC suggests a CVP of around 8 mmHg. The left atrium is moderately dilated and is larger compared to the previous study. There is mild mitral regurgitation that is slightly more prominent compared to the previous study but there is no other significant valvular heart disease. Procedure: The study quality was technically difficult. A contrast injection of Definity was performed to improve assessment of LV function. A two- dimensional transthoracic echocardiogram with color flow and Doppler was performed. Comparison is made with the echocardiogram of 08/08/2003. The patient was in normal sinus rhythm during the exam. Left Ventricle: Left ventricular size is at the upper limits of normal. There is normal left ventricular wall thickness. Left ventricular systolic function is low normal. The ejection fraction is estimated to be 50-55%. There are no focal wall motion abnormalities. This is mildly larger and slightly less dynamic compared to the previous study. Diastolic function could not be accurately assessed due to contradictory data. Right Ventricle: The right ventricle is not well visualized. The right ventricle grossly appears normal in size with probable normal systolic function. This is grossly unchanged compared to the previous study. Atria: The left atrium is moderately dilated. This is larger compared to the previous study. The right atrium is normal in size. This is unchanged compared to the previous study. There is no Doppler evidence for an interatrial shunt. Mitral Valve: There is mild mitral annular calcification. There is mild mitral regurgitation. This is slightly more prominent compared to the previous study. Aortic Valve: The aortic valve is not well visualized. The aortic valve is slightly calcified. The aortic valve opens well. There is no aortic valve stenosis. No aortic regurgitation is present. Tricuspid Valve: The tricuspid valve is normal in structure and function. There is trace tricuspid regurgitation. Pulmonary artery pressures cannot be estimated because of the lack of a measurable TR jet velocity but the IVC suggests a CVP of around 8 mmHg. Pulmonic Valve: The pulmonic valve is not well visualized. There is no pulmonic valvular regurgitation. There is no other significant valvular heart disease. Great Vessels: The aortic root is normal size. The dimensions of the ascending aorta are normal. The IVC is dilated (diameter is greater than 2.1 cm) yet it collapses greater than 50% with a sniff. This suggests a right atrial pressure of 8 mm Hg. Pericardium/ Pleura There is no pericardial effusion. MMode/2D Measurements & Calculations LVIDd: 5.5 cm LVOT diam: 2.3 cm LVIDs: 4.1 cm Ao root diam: 3.4 cm FS: 25.6 % asc Aorta Diam: 3.2 cm EPSS: 0.96 cm IVSd: 1.0 cm LVPWd: 1.0 cm LV pina. diameter/BSA (cm/m^2): 2.5 LV sys. diameter/BSA (cm/m^2): 1.8 LA A2 area: 26.4 cm2 RA long axis: 6.0 cm LA A4 area: 27.1 cm2 RA area: 18.5 cm2 LA length (vol): 6.2 cm RA vol: 48.5 ml LA vol: 97.5 ml RA : 21.5 ml/m2 LA vol index: 43.1 ml/m2 IVC diam: 2.5 cm RVD1 (basal): 3.3 cm RVD2 (mid): 3.0 cm TAPSE: 2.0 cm Doppler Measurements & Calculations Ao V2 max: 123.5 cm/sec LVOT Max Won: 91.2 cm/sec Ao V2 mean: 87.3 cm/sec LV V1 max P.3 mmHg Ao max P.1 mmHg LV V1 VTI: 18.9 cm Ao mean P.4 mmHg NELIA(I,D): 3.2 cm2 Ao V2 VTI: 24.8 cm NELIA(V,D): 3.1 cm2 sev ratio: 0.76 NELIA indexed to BSA (cm^2/m^2): 1.4 MV E max won: 115.0 cm/sec PA V2 max: 57.6 cm/sec MV A max won: 47.1 cm/sec PA V2 mean: 39.4 cm/sec MV E/A: 2.4 PA mean P.71 mmHg Med Peak E' Won: 9.3 cm/sec PA Accel Time: 0.10 sec E/E' med: 12.4 Lat Peak E' Won: 8.0 cm/sec E/E' lat: 14.4 E/e' average: 13.4 MV dec time: 0.17 sec MV P1/2t: 48.9 msec MV P1/2t max won: 115.2 cm/sec SV(LVOT): 78.0 ml MVA(P1/2t): 4.5 cm2 Reading Physician:NASEEM
--- NOTE | 2019-06-12 20:13 | P.HP_ITS ---
History of Present Illness History of Present Illness Date Patient Seen: 06/12/19 Time Patient Seen: 20:13 Chief complaint: Diff breathing 3 days,worsening with lying down Narrative: Mr. Octaviano Jj is a 64-year-old male with a history significant for coronary artery disease, hypertension, CVA with residual left side weakness and multiple traumas who presents to the emergency department 3 days of worsening shortness of breath. The patient reports exertional dyspnea and orthopnea with development of lower extremity swelling over the same period. He complains of headache and neck pain but this is been chronic related to cervical fusion with pain radiating into the trapezius bilaterally as well as bilateral chest pain that is mild increasing on deep inspiration. He has had a cough productive for clear sputum that produces chest pain. Patient additionally reports recent trauma to the left face and right rib fractures from a fall which continues to bother him. He has had multiple surgeries bilateral shoulders and numerous abdominal surgeries for hernia repair. Reports no recent illness and denies fevers or chills nasal congestion or sore throat. He has had no recent sick contacts. He has chest pain without palpitations and shortness of breath with cough as previously noted. He has generalized abdominal tenderness which appears to be longstanding and denies nausea vomiting and has no diarrhea or constipation. His last bowel movement was this morning. He reports no difficulty urinating. He has a residual left-sided weakness from a stroke 10 years ago and is experience numerous falls. Upon arrival to the ER the patient is afebrile with a temperature 97.9?, heart rate of 70, blood pressure elevated 186/88, respiratory rate of 29 saturating 99% on 2 liters/minute nasal cannula. On chest x-ray the patient is found to have patchy bibasilar infiltrates and enlarged cardiac silhouette. Patient has elevated D-dimer at [address] angio that is negative for PE and finds cardiomyopathy with trace pulmonary edema without effusions, enlarged periesophageal nodes and enlarged liver. Twelve lead EKG finds sinus rhythm with ventricular rate of 71, first-degree AV block with a RI interval of 216 milliseconds left atrial enlargement and Q-waves are noted inferiorly in lead [address] or T-wave abnormalities are noted. On laboratory analysis the patient has white count of 7.8, hemoglobin 13.6, hematocrit of 40.3 and platelets of 259. He has a PT of 13.3, INR of 1.2 and a PTT of 34. His sodium is 142 and he is hypokalemic with 3.1. He has a BUN of 6 and creatinine 0.9, his nonfasting glucose is 98. His LFTs are within normal ranges and has a elevated lipase at 1545. He has a troponin of less than 0.012 and elevated proBNP of 1270. In the ER the patient received 60 mg of Lasix IV as well as morphine 4 mg and nitro paste. Following treatment the patient states he has less chest pain and is feeling better. Patient is admitted to the hospital for further evaluation management of new onset heart failure. Patient History Medical History (Updated 06/12/19 @ 20:40 by TERRA Tom) Coronary artery disease (Acute) Hypertension (Acute) Left hemiparesis (Acute) Right rib fracture (Acute) Stroke (Acute) Surgical History (Updated 06/12/19 @ 21:07 by TERRA Tom) History of cholecystectomy (Acute) History of laparotomy (Acute) History of shoulder surgery (Acute) History of surgery on wrist (Acute) Hx of fusion of cervical spine (Acute) Family & Social History Family History (Updated 06/12/19 @ 20:41 by TERRA Tom) Father Parkinsons Mother Cancer Brother Cancer Sister No significant medical problems Safety & Behavioral: Feels Safe in Current Yes Environment Been Physically Hurt or No Threatened By a Person Tobacco & Substance use: Smoking Status Never smoker alcohol intake never alcohol intake frequency 0-2 drinks per day Substance Use Type marijuana Comment: The patient lives in [address] [facility] with his to whom has been for 30 years. Reports his father has Parkinson's and his mother from multiple myeloma. Has a brother is from brain cancer and a sister is in good health. He has adopted his 2 children. Occupation: Disabled Smoking: The patient reports never using tobacco products, endorses long-term secondhand smoke exposure. Alcohol: The patient endorses consuming 2-3 beers per week. Substance use: The patient is use CBD oil in last 3 months for facial pain from trauma but is no longer using the product.. Advanced directives. In direct discussion with the patient he states his wish to be DO NOT RESUSCITATE. He designates his sister Marylou Morales as a surrogate decision maker and holds DPOA. Meds Home Medications and Allergies Home Medications Medication Instructions Recorded Confirmed Type acetaminophen 1,000 mg PO Q6H PRN 11/21/18 06/12/19 History carvedilol 25 mg PO BID 11/21/18 06/12/19 History clopidogrel [Plavix] 75 mg PO DAILY 11/21/18 06/12/19 History Allergies Allergy/AdvReac Type Severity Reaction Status Date / Time NSAIDS (Non-Steroidal Allergy Severe Swelling Verified 06/12/19 15:49 Anti-Inflamma of Lip/Tongue/Throat celecoxib [From CELEBREX] Allergy Unknown Verified 06/12/19 15:49 lisinopril [LISINOPRIL] Allergy Unknown Verified 06/12/19 15:49 meloxicam [MELOXICAM] Allergy Unknown ANAPHYLAXSI Verified 06/12/19 15:49 S Penicillins [PENICILLINS] Allergy Unknown Verified 06/12/19 15:49 Review of Systems Review of Systems Narrative: All systems reviewed and found unremarkable under discussed in the HPI above. Exam Vital Signs (past 8 hours): - 06/12/19 15:50 06/12/19 19:20 Temperature 97.9 F 98.3 F Pulse Rate 70 65 Respiratory Rate 29 H 18 Blood Pressure 186/88 H 181/105 H Pulse Oximetry 99 98 Oxygen Delivery Method Nasal Cannula Oxygen Flow Rate 2 Narrative Exam Narrative: GENERAL APPEARANCE: well developed, obese male with a BMI of 42.0 who is sitting up in bed in no acute distress. HEENT: Residual left facial droop, no ptosis, PERRLA, conjunctiva clear, EOMs intact without nystagmus, no sinus tenderness to percussion, no rhinorrhea, mucous membranes are moist and pink without lesions or exudate. NECK/THYROID: Midline cervical tenderness on palpation with bilateral trapezius tenderness, no JVD, no carotid bruit, no thyromegaly, trachea midline. LYMPH NODES: no cervical or supraclavicular lymphadenopathy. SKIN: [place], warm and dry, no visible lesions, or rashes. HEART: regular rate and rhythm with premature beats on auscultation, S1-S2, no murmur, no rubs or gallops, brisk capillary refill, 1+ BLE edema LUNGS: Globally diminished with expiratory wheezing right greater than left and bibasilar crackles, no cough present, speaking in full sentences. CHEST: Symmetrical movement, patient is conversant with no accessory muscle use, diminished tidal volume, right chest wall pain on lateral compression. ABDOMEN: Well-healed midline abdominal scar,soft, round, firm, generalized abdominal tenderness, no guarding or peritoneal signs, no palpable organomegaly, no flank tenderness, active bowel tones. BACK: Normal curvature, nontender to palpation, no CVA tenderness on percussion EXTREMITIES: Well-healed surgical scars over top of right shoulder, left shoulder and upper arm Neck pain with straight leg raise, moves all extremities, strength is 5/5 and symmetrical, no deformities or joint effusions. NEUROLOGIC: AAO x4, no focal neurologic deficits, residual left facial droop and left-sided weakness, no aphasia or dysarthria, sensation intact to light touch, hearing grossly normal to speech. PSYCH: Good eye contact, cooperative, appropriate with stable behavior Objective Labs Result Diagrams: 06/12/19 16:00 06/12/19 16:00 Labs: Laboratory Results - last 24 hr 06/12/19 06/12/19 06/12/19 16:00 16:00 16:00 WBC 7.8 RBC 4.64 Hgb 13.6 Hct 40.3 L MCV 86.8 MCH 29.2 MCHC 33.7 RDW 13.6 Plt Count 259 Neut % (Auto) 65.2 Lymph % (Auto) 19.5 L [place] % (Auto) 7.4 Eos % (Auto) 6.6 H Baso % (Auto) 1.3 Neut # (Auto) 5100 Lymph # (Auto) 1500 [place] # (Auto) 600 Eos # (Auto) 500 H Baso # (Auto) 100 PT 13.3 H INR 1.2 APTT 34 D-Dimer Sodium 142 Potassium 3.1 L Chloride 100 Carbon Dioxide 30 BUN 6 L Creatinine 0.90 Estimated GFR > 60.0 BUN/Creatinine Ratio 6.7 Glucose 98 Calcium 9.1 Total Bilirubin 0.7 AST 30 ALT 15 Alkaline Phosphatase 108 Troponin I < 0.012 NT-Pro-B Natriuret Pep 1270 H Total Protein 8.2 Albumin 4.4 Globulin 3.8 Albumin/Globulin Ratio 1.2 Lipase 1545 H Procalcitonin 06/12/19 06/12/19 16:00 16:00 WBC RBC Hgb Hct MCV MCH MCHC RDW Plt Count Neut % (Auto) Lymph % (Auto) [place] % (Auto) Eos % (Auto) Baso % (Auto) Neut # (Auto) Lymph # (Auto) [place] # (Auto) Eos # (Auto) Baso # (Auto) PT INR APTT D-Dimer 1094 H Sodium Potassium Chloride Carbon Dioxide BUN Creatinine Estimated GFR BUN/Creatinine Ratio Glucose Calcium Total Bilirubin AST ALT Alkaline Phosphatase Troponin I NT-Pro-B Natriuret Pep Total Protein Albumin Globulin Albumin/Globulin Ratio Lipase Procalcitonin < 0.05 Assessment & Plan Assessment & Plan narrative: This is a 64-year-old male patient who has had increasing shortness of breath, orthopnea and peripheral edema, cough productive for clear sputum and pleuritic chest pain for 3 days. The patient denies precipitating event. 1. New onset congestive heart failure, acute, present on admission, active Patient describes no precipitating event but has had progressive symptoms for 3 days with shortness breath, orthopnea, pleuritic chest pain, cough and difficulty sleeping and lower extremity edema. Chest x-ray identifies bilateral patchy basilar infiltrates, CT angiogram finds no PE with cardiomyopathy and trace pulmonary edema without effusions. Patient with bibasilar crackles on exam, troponin at less than 0.012 and a positive pro BNP at 1270. Patient received Lasix 60 mg IV in the emergency department, ordered Lasix 40 mg daily. Hypokalemia is being treated and will continue to monitor electrolytes. Ordered repeat cardiac panel. Echocardiogram in the morning. 2. Chest pain, acute, pleuritic, present on admission, active. Patient describes chest pain is pleuritic and has right lateral chest wall pain on lateral compression related to previous rib fractures. Troponin is less than 0.012 and procalcitonin is less than 0.05 he has white count of 7.8 and a D-dimer is elevated at 1094. CT angiogram finds no pulmonary embolism, cardiomyopathy, trace pulmonary edema without effusions and enlarged periesophageal lymph nodes. Will recheck cardiac panel. 3. Coronary artery disease, chronic, present on admission, active Patient complains of pleuritic chest pain and neck pain confounded by presence of healing rib fractures and cervical fusion. Twelve lead EKG shows sinus rhythm with a first-degree AV block with left atrial enlargement and noted Q-waves inferiorly in lead 3 and AVF but no evidence of ST or T-wave changes. Troponin on admission is less than 0.012 and proBNP is found mildly elevated at 1270. Will recheck a cardiac panel. 4. Abdominal pain, elevated lipase, enlarged left lobe of liver, present on admission, active. Patient with generalized abdominal tenderness, patient denies nausea vomiting or changes in bowel habits or stool color. Abdomen is obese and firm limiting abdominal assessment CT imaging finds enlarged left lobe of liver and paraesophageal lymph node enlargement. Gallbladder is surgically absent and has elevated lipase at [address] of the abdomen 5. Hypokalemia, unknown if acute or chronic, present on admission, active Patient with hypokalemia on admission labs is 3.1. Patient is being diuresed receive 60 mg of Lasix in the emergency department. Ordered potassium 60 mEq IV Will recheck a potassium following infusion. 6. Elevated lipase, present on admission, active. Lipase on admission is 1545. Patient has generalized tenderness of his abdomen and has had multiple abdominal surgeries reportedly for hernia repair. Patient denies abdominal pain worsening with eating, nausea vomiting or changes in stool. The patient is being diuresed for acute congestive heart failure, will recheck lipase in the morning May consider abdominal CT with contrast. 7. Essential hypertension, chronic, present on admission, active The patient presents hypertensive with a pressure of 186/88 upon arrival in the ER, blood pressure minimally improved with diuresis. Patient currently taking Coreg 25 mg twice daily which is continued. Ordered losartan 50 mg PO daily with 1st dose now. VTE prophylaxis: SCDs, Lovenox Diet: Low-sodium, low-fat, cardiac diet IVF: Saline lock The patient admitted to the hospital for new onset congestive heart failure and uncontrolled hypertension requiring further evaluation and treatment the patient is admitted as an inpatient with expected length of stay to be greater than 2 midnights. Scores GCS [place] coma scale eye opening: Spontaneous [place] coma scale verbal response: Orientated [place] coma scale motor response: Obey commands [place] coma scale total score: 15
[2019-06-12 20:17] LABS: Magnesium 2.3 mg/dL (1.6-2.3)
[2019-06-12] MEDS: ALBUTEROL/IPRATROPIUM 3 ML AMPUL INH (20:39)
[2019-06-12 20:40] VITALS: O2SAT 99
[2019-06-12 20:48] LABS: Creatine Kinase 83 U/L (55-170)
[2019-06-12 21:01] LABS: Troponin I < 0.012 ng/mL (0.01-0.034)
[2019-06-12 21:09] VITALS: BMI 41.9
[2019-06-12] MEDS: POTASSIUM CHLORIDE 60 MEQ in SODIUM CHLORIDE 0.9% 500 ML 88.333 ML IV (21:31)
[2019-06-12 21:36] VITALS: BP 182/95; PULSE 68
[2019-06-12] MEDS: carvediloL 25 MG TABLET PO (21:36)
[2019-06-12] MEDS: OXYCODONE IR 10 MG TABLET PO (21:36)
[2019-06-12 21:46] VITALS: BP 182/95; PULSE 68
[2019-06-12] MEDS: LOSARTAN 50 MG TABLET PO (21:46)
--- NOTE | 2019-06-12 22:19 | PC.NURSE ---
Evening Shift/Admit Note- Patient arrived to room via wheelchair from ER at 1910. Admission questions done, home medications reviewed, and physical assessment done. Patient alert and oriented and able to make needs known to staff. Patient pleasent, calm, and cooperative with care. oriented patient to bed and bed controls, room, lights, phone, menu, and call lawson/tv remote. safety measures in place. patient agrees to call for assitance. cCall lawson and phone within reach. will continue to monitor.
[2019-06-12 23:40] VITALS: BP 140/78; PULSE 63; RESP 18; TEMP 36.6; O2SAT 97
[2019-06-13] VITALS (11 sets, daily range): BP systolic 141–181; BP diastolic 77–104; PULSE 60–85; RESP 16–18; TEMP 36.6–36.8; O2SAT 94–98; BMI 42.0
[2019-06-13] MEDS: OXYCODONE IR 10 MG TABLET PO ×6 (02:02→22:32)
[2019-06-13] MEDS: CYCLOBENZAPRINE 10 MG TABLET PO ×3 (02:02→22:33)
[2019-06-13 05:28] LABS: Add Manual Diff / Slide Review NO; Basophils Absolute Auto 100 /uL (0-100); Basophils Percent Auto 1.2 % (0-2); Eosinophils Absolute Auto 600 /uL (0-450); Eosinophils Percent Auto 8.7 % (2-4); Hematocrit 40.8 % (41-53); Hemoglobin 13.8 g/dL (13.5-17.5); Lymphocytes Absolute Auto 1500 /uL (1100-4500); Lymphocytes Percent Auto 23.5 % (25-40); Mean Corpuscular HGB Conc 33.9 % (30-36); Mean Corpuscular Hemoglobin 29.4 PG (26-34); Mean Corpuscular Volume 86.8 fL (80-100); Monocytes Absolute Auto 500 /uL (0-900); Monocytes Percent Auto 7.7 % (3-14); Neutrophils Absolute Auto 3800 /uL (1500-7000); Neutrophils Percent Auto 58.9 % (50-75); Platelet Count 242 X10^3/uL (150-400); Red Blood Cell Count 4.69 X10^6/uL (4.5-5.9); Red Cell Distribution Width 13.9 % (11.6-14.8); White Blood Cell Count 6.5 X10^3/uL (4.5-11.0)
[2019-06-13 05:41] LABS: Blood Urea Nitrogen 8 mg/dL (9-20); Calcium 8.7 mg/dL (8.4-10.2); Carbon Dioxide 31 mmol/L (22-32); Chloride 103 mmol/L (98-107); Estimated Glomerular Filt Rate > 60.0 mL/min (>60); Glucose 104 mg/dL (80-110); HEMOLYSIS < 15 (0-50); Lipase 208 U/L (23-300); Potassium 4.2 mmol/L (3.4-5.1); Sodium 142 mmol/L (137-145)
[2019-06-13] MEDS: ALBUTEROL 2.5 MG/3 ML NEB (ADULT) INH (08:06)
[2019-06-13] MEDS: ENOXAPARIN 40 MG/0.4 ML SYRINGE SUBCUT (09:56)
[2019-06-13] MEDS: FUROSEMIDE 40 MG TABLET PO (09:57)
[2019-06-13] MEDS: CLOPIDOGREL 75 MG TABLET PO (09:57)
[2019-06-13] MEDS: carvediloL 25 MG TABLET PO ×2 (09:57→20:28)
[2019-06-13] MEDS: LOSARTAN 50 MG TABLET PO (09:58)
--- NOTE | 2019-06-13 10:25 | PT.IIE ---
Current Diagnoses Heart failure, unspecified (06/12/19) Surgical History (Last Updated 06/12/19 @ 21:07 by TERRA Tom) History of cholecystectomy (Acute) History of laparotomy (Acute) History of shoulder surgery (Acute) History of surgery on wrist (Acute) Hx of fusion of cervical spine (Acute) Medical History (Last Updated 06/12/19 @ 20:40 by TERRA Tom) Coronary artery disease (Acute) Hypertension (Acute) Left hemiparesis (Acute) Right rib fracture (Acute) Stroke (Acute) Physical Therapy Inpatient Evaluation/Re-Eval M1 PT/OT-IP Prior Functional Status Start: 06/13/19 08:20 Freq: NEEDED Status: Active Protocol: Document 06/13/19 09:05 (Rec: 06/13/19 10:25 [email or web address]) Medical Review Prior Functional Status Medical History Reviewed Yes Diet/Fluid Consistency Regular Communication no deficits noted. able to make needs known Mobility and Gait Pt uses SPC sometimes for stability since his recent fall from April. He stated he broke his R ribs which forced him to walk with small steps to minimize trunk movements. He also used step to pattern for stair climbing with rail support. He c/o progressive weakness and worsening SOB recently that he couldnt walk the entire [employer] for grocery shopping. Activities of Daily Living and IADL's Independent for ADLs and IADLs . Pt has not been driving much since his fall from April d/t worsening vision on L side . Social History Household Members spouse Living Arrangements Mobile home Number of Floors (Floors) One Floor Number of Stairs To Enter/Railing? 5 NADIR with L rail Home Environment Standard Height Toilet,Walk in Shower,Built-In Shower Seat Home Equipment Straight Cane,Grab Bars Near Toilet,Grab Bars In Shower Additional Social History Comment Pt lives in a 40 foot trailer with his ( 30 years) in [facility]. Has sister lives in , father with Parkinson's in [facility] and 2 stepdtrs (38 & 40yo) in [facility]. He stated his sister / stepdtrs are able to assist if needed. Pt had CAD, CVA with L sided weakness from 10 years ago, along with c/s fusion, multiple hernia repair and B shd surgeries. M2 PT-IP Current Condition Start: 06/13/19 08:20 Freq: NEEDED Status: Active Protocol: Document 06/13/19 09:05 (Rec: 06/13/19 10:25 [email or web address]) Physical Therapy Current Condition Current Condition Evaluation Date 06/13/19 Treatment Diagnosis Acute CHF, CAD, chest pain, SOB, difficulty in walking Onset Date a week ago Weight Bearing Status Weight Bearing Status Full Weight Bearing M3 PT-IP Subjective Start: 06/13/19 08:20 Freq: NEEDED Status: Active Protocol: Document 06/13/19 09:05 (Rec: 06/13/19 10:25 [email or web address]) Subjective Physical Therapy Visit Type Type Initial Evaluation Visit Start Time 09:05 Visit Stop Time 09:35 Total Visit Minutes 30 Number of INDUSTRY SEGMENT SPECIALIST Visits 0 Physical Therapy Visit Comments Patient Comments I feel a little bit better but im still wheezing/ SOB hard if move around. Patient Goals To get stronger again so he will not be SOB easily. Therapy Pain Assessment Pain Present Pain Present Denied Pain M4 PT-IP Mobility and Gait Start: 06/13/19 08:20 Freq: NEEDED Status: Active Protocol: Document 06/13/19 09:05 (Rec: 06/13/19 10:25 [email or web address]) PT-Bed Mobility Assessment Supine to Sit Supine to Sit Contact Guard Assistance,Head of Bed Elevated,Bedrails Scooting Scooting to Edge of Bed Contact Guard Assistance PT-Transfer Assessment Sit to and From Stand Sit to and from Stand Contact Guard Assistance,Use of Upper Extremities Equipment Transfer Assistive Device None Orthotic/Prosthetic Devices or Brace: No Transfers Transfer Destination Bed,Chair Transfer Technique Stand Step Pivot Transfer Ability Level of Assist Contact Guard Assistance,Use of Upper Extremities Comments Mobility Comments Pt was up in elevated HOB upon PT arrival. Pt was on 1L O2 NC and SpO2 at >95%. He is AxOx4 but easily got SOB with long sentences. BP at 187/96 HR 69. Pt completed supine to sit from elevated HOB 60 degrees and used L bed rail for pivoting. Pt then scooted forward and stood up without assistance/ AD safely. He was able to dress himself unsupported. He then returned to chair after amb. BP at 182/ 101 HR 69. Call light placed within reach. Gait Assessment Gait Gait Assistance Required: Standby Assistance Distance (Feet) 140 Able to Maintain Weight Bearing Status Yes During Gait Assistive Devices Assistive Device None,Gait Belt,Front Wheeled Walker Orthotic/Prosthetic Devices or Brace: No Gait Deviations General Gait Pattern Decreased Stride Length, Decreased Feet Clearance Factors Limiting Gait Function Factors Limiting Gait Function Decreased Activity Tolerance, Poor Balance Comments Gait Comments Pt amb from bedside to [facility] at first with FWW. He appears to have SOB and wheeze moderately for every 50 feet. SpO2 without NC maintained at >92%. He then completed amb without AD for the last 40 feet while returning to bedside chair. His gait speed did slow down and showed increased wobbly gait who has difficulty walking in a straight line, but pt denies any discomfort. Pt pre and post BP - 180s/ 100s HR 70s. Stair Climbing Assessment Comments Stair Climbing Comments did not assess d/t SOB and weakness. PT-Balance Assessment Sitting Balance and Reactions Static Sitting Balance Ability Normal Dynamic Sitting Balance Ability Normal Standing Balance and Reactions Static Standing Balance Ability Normal Dynamic Standing Balance Ability Good M5 PT-IP Objective Assessments Start: 06/13/19 08:20 Freq: NEEDED Status: Active Protocol: Document 06/13/19 09:05 (Rec: 06/13/19 10:25 [email or web address]) Orientation Orientation/Cognition Level of Alertness Alert Orientation Name,Age,Birthday,Month,Date, Year,Day of Week,Place, Situation Language Function Ability No Deficits Noted Safety Awareness Understands Safety Issues Memory Description No Deficits Noted Gross Range of Motion Upper Extremity ROM Assessment Within Functional Limits Lower Extremity ROM Assessment Within Functional Limits Strength Upper Extremity Strength Assessment Within Functional Limits Lower Extremity Strength Assessment Within Functional Limits Coordination Assessment Gross Coordination Gross Coordination WNL Sensation Assessment Sensation Gross Sensation WNL M6 PT-IP Treatment Start: 06/13/19 08:20 Freq: NEEDED Status: Active Protocol: Document 06/13/19 09:05 (Rec: 06/13/19 10:25 [email or web address]) Physical Therapy Treatment Exercises Exercises Ankle Pumps,Quad Sets Education Education Provided Safety M7 PT-IP Assessment and Plan Start: 06/13/19 08:20 Freq: NEEDED Status: Active Protocol: Document 06/13/19 09:05 (Rec: 06/13/19 10:25 [email or web address]) PT Summary Assessment and Plan Potential Rehabilitation Potential Excellent Status of Condition at Evaluation Stable Summary Impairments Strength,Balance,Bed Mobility, Transfers,Gait,Activity Tolerance Assessment Summary Pt is a 64yo male admitted to ER d/t new onset of CHF and chest pain. Pt appears Ax Ox 4 upon assessment but he has difficulty communicating with long sentences d/t SOB. Significant wheezing breath sounds also noted especailly during mobility. Pt overall demonstrates significant decreased activity tolerance ( fatigue and SOB after 150 ft amb), along with high BP (180s / 100s) pre and post mobility. Dis with pt about the effect of weight loss/diet/ and continous physical activity on improving heart conditions. Pt is receptive to that. However, pt was mostly home bound and has limited mobility which this therapist thinks having home health therapy will be an ideal option for pt to improve his mobility and strength. Goals Bed Mobility Goal Standby Assistance Transfer Goal Standby Assistance,Cane,Front Wheeled Walker Gait Goal Standby Assistance,Cane,Front Wheel Walker Gait Distance 300 Other Goals 5 NADIR with L rail Days to Meet Goals 5 Frequency of Treatment Frequency Of Treatment Once a Day Treatment Plan Physical Therapy Treatment Plan Bed Mobility Training,Transfer Training,Gait Training, Therapeutic Exercise,Balance Retraining,Discharge Planning, Hot or Cold Pack,Neuromuscular Re-ed Other Recommendations and Next Treatment check vital Focus gait training as cristina with/ without AD 5 Nadir with L rail Recommendations To Nursing Amount of Assist Needed Standby Assistance Discharge Recommendations PT Discharge Recommendations Home with Assistance,Home Health Equipment Needed for Home Before might need FWW if pt cont to Discharge be unsteady Transportation Needs at Discharge Private Vehicle
--- NOTE | 2019-06-13 13:29 | CM.DANOTE ---
Patient is a 64 year old male who was admitted on 06/12/19 for SOB, swollen. Pt has [facility] and [facility] for insurance and his PCP is Dr. Margaret Siegel. EMR was reviewed. Per MD, pt with a hx of CVA, residual weakness, recent fall with facial bruising and rib fx and now possible new CHF. Echo ordered for today. SW met bedside with pt and explained role and he confirms that he lives in [facility] in a trailer with his and is mostly independent with ADL's at baseline and uses a homemade cane for ambulation and furniture surfs. 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 Pt states he was on a ladder and fell 10 feet on his face and broke his ribs shortly before Peace and he has struggled with sleeping and pain since then. Pt denies any hx of HH or SNF and states his is his DPOA. Pt has been worried about his increased shortness of breath, fatigue, and leg swelling and does not feel medically stable to d/c home yet today. Per PT, pt had some bp issues with ambulation today and they will attempt use of ambulation without FWW and test bp later today again and tomorrow. Plan: SW to follow closely after Echo results to determine any further d/c planning needs and further PT recommendations. BERT Mancilla Discharge Planning/Care Management CM Discharge Assessment Start: 06/13/19 13:26 Freq: Status: Active Protocol: Document 06/13/19 13:26 BF (Rec: 06/13/19 13:29 [id number]) Discharge Planning Assessment Assigned Inside Phone Sales ALCON Arriaza DPOA/Assigned Designee Name Spouse Arianne Escobedo Contact Information [phone] Advance Directives? Yes Advance Directives on File Yes History Provided By Patient Has Patient been admitted in last 30 No days? Comment Multiple ED visits in 2019 Prior Living Arrangements Mobile home Household Members spouse Type of transporation used prior to Relies on Others admit Independent with ADL's Yes: mostly Is patient alert and oriented? Yes Needs Assistance With Managing Medications,Home Chores / Shopping Caregiver for Another No DME Already Rented / Owned Cane Patient/Family Preference Home with Home Health Barriers to Discharge No Discharge Plan Home Community Services Physical Therapy Transportation Arrangement Spouse can likely provide transport at d/c Additional Comment Waiting for further PT recommendations Whiteboard Updated in Patient Room with Yes name and ext. # of Inside Phone Sales Review Status In Process Please Provide Date Initial DC 06/13/19 Assessment Was Performed Next Review Type Continued Stay Review
--- NOTE | 2019-06-13 14:43 | OT.IP.EVAL ---
Current Diagnoses Heart failure, unspecified (06/12/19) Past Medical History (Last Updated 06/12/19 @ 20:40 by TERRA Tom) Coronary artery disease (Acute) Hypertension (Acute) Left hemiparesis (Acute) Right rib fracture (Acute) Stroke (Acute) Surgical History (Last Updated 06/12/19 @ 21:07 by TERRA Tom) History of cholecystectomy (Acute) History of laparotomy (Acute) History of shoulder surgery (Acute) History of surgery on wrist (Acute) Hx of fusion of cervical spine (Acute) Occupational Therapy Inpatient Evaluation/Re-Eval M1 PT/OT-IP Prior Functional Status Start: 06/13/19 08:20 Freq: NEEDED Status: Active Protocol: Document 06/13/19 14:43 PJEladia (Rec: 06/13/19 16:35 PJM [id number]) Medical Review Prior Functional Status Medical History Reviewed Yes Diet/Fluid Consistency Regular Communication No deficits noted; able to make needs known. Mobility and Gait Pt has been using SPC for stability since his recent fall from ladder on 04/1319 with R rib fx's. He also used step to pattern for stair climbing with rail support. He reports progressive weakness and worsening SOB recently and was no longer able to walk through grocery store. Activities of Daily Living and IADL's Pt states he is normally independent with all self care ,but has been assisting him with socks and shoes since his rib fx's. They normally share IADLS and pt does most of the cooking. has been doing household since his fall . Prior Functional Level (Other details) is retired and in good health per pt. She can provide 24 hr assist at d/c. Social History Household Members spouse Living Arrangements Mobile home Number of Floors (Floors) One Floor Number of Stairs To Enter/Railing? 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-IP Current Condition Start: 06/13/19 11:30 Freq: Status: Active Protocol: Document 06/13/19 14:43 PJEladia (Rec: 06/13/19 16:35 PJM [id number]) Occupational Therapy Current Condition Current Condition Evaluation Date 06/13/19 Treatment Diagnosis decr'd activity tolerance, ADLS with new DX of CHF Diagnosis Onset Date 06/12/19 Post Operative Precautions Other Precautions fall risk, watch O2 sats M3 OT- IP Subjective and Pain Start: 06/13/19 11:30 Freq: Status: Active Protocol: Document 06/13/19 14:43 PJM (Rec: 06/13/19 16:35 PJM [id number]) OT- Subjective Occupational Therapy Visit Type Type Initial Evaluation Visit Start Time 14:19 Visit Stop Time 14:43 Total Visit Minutes 24 Occupational Therapy Visit Comments Patient Comments My ribs are still sore and my face is still swollen from that fall I had in April. Patient/Caregiver Goals to go home OT Pain Assessment Pain When Pain Assessed After Treatment Pain Present Pain Present Pain Reported Location Neck Intensity 8 Scale Used Numeric (1 - 10) Description Aching,Chronic Pain Behaviors Facial Grimacing,Guarding Management Techniques Distraction,Re-positioning, Timing of Activity with Medications M4 OT- IP ADL's Start: 06/13/19 11:30 Freq: Status: Active Protocol: Document 06/13/19 14:43 PJM (Rec: 06/13/19 16:35 PJM [id number]) OT [id number] General Evaluation Self-Feeding Ability Independent OT ADL-Grooming General Evaluation Grooming Ability Standby Assistance Areas Needing Assistance Face Washing Comments OT Grooming Comments in chair after set up OT ADL-Oral Care Comments Oral Care Comments did not occur this session OT ADL-Dressing General Eval Lower Body Dressing Ability Maximum Assistance Areas Needing Assistance Socks,Shoes Assistive Devices Dressing Assistive Devices Long Handled Shoe Horn,Tilt Wall Supervisor ,Sock Aid Comments OT Dressing Comments Began education re: use of mid level java developer, sock aid, long shoe horn to assist with lower body dressing and all equipt provided at pt request. OT ADL-Toileting Comments OT Toileting Comments did not occur this session OT ADL-Bathing Comments OT Bathing Comments to be assessed M5 OT- IP IADL's Start: 06/13/19 11:30 Freq: Status: Active Protocol: Document 06/13/19 14:43 PJM (Rec: 06/13/19 16:35 PJ [id number]) OT-Instrumental Activities of Daily Living Deficits IADL Deficits Identified Deficits Home Safety Awareness Awareness of Need for Assistance at Home Good Awareness Ability to Problem Solve Emergency Able to Problem Solve Situations Home Safety Comments can assist PRN at home Medication Management Medication Management No Deficits Identified Money Management Money Management Caregiver Provides Assistance Money Management Comments manages finances Meal Preparation Meal Preparation Caregiver Provides Assist Meal Preparation Comments pt normally does most of cooking, but can assist PRN Rubber Trimmer Rubber Trimmer Caregiver Provides Assist Rubber Trimmer Comments assists PRN Driving Driving Caregiver Provides Assist Driving Comments assists PRN M6 OT- IP Functional Cognition Start: 06/13/19 11:30 Freq: Status: Active Protocol: Document 06/13/19 14:43 PJM (Rec: 06/13/19 16:35 PJ [id number]) Cognitive Factors Limiting Selfcare Function Cognitive Ability Level of Alertness Alert Patient Orientation Name,Age,Birthday,Month,Year, Place,Situation Attention Span Ability Capable of Focused Attention, Capable of Sustained Attention Ability to Follow Commands Able to Follow One Step Commands Memory Description No Deficits Noted Safety Awareness No Deficits Noted Problem Solving Ability No deficits Noted OT- Vision and Hearing OT- Vision Assessment Visual Acuity WFL,Glasses All The Time Vision Assessment Comments Pt reports L eye was swollen short for long period after fall in April. He broke his glasses and currently has eye appointment for new ones. He is using old pair of glasses at present. M7 OT- IP Mobility and Balance Start: 06/13/19 11:30 Freq: Status: Active Protocol: Document 06/13/19 14:43 PJM (Rec: 06/13/19 16:35 PJ [id number]) OT-Transfer Assessment Comments Mobility Comments see P.T. notes OT- Gait Assessment Comments Gait Ability Comments see P.T. notes OT- Balance Assessment Sitting Balance and Reactions Static Sitting Balance Ability Good Dynamic Sitting Balance Ability Good Comments Other Balance Tests/Deviations/Treatment during lower body dressing in : chair M8 OT- IP Objective Assessments Start: 06/13/19 11:30 Freq: Status: Active Protocol: Document 06/13/19 14:43 PJM (Rec: 06/13/19 16:35 PJ [id number]) OT Gross Range of Motion Upper Extremity Range of Motion Assessment Right Impaired ROM Impairments R scaption limited to ~110 degrees by rib pain, L scaption limited to ~80 degrees by stiffness from old stroke 10 yrs ago OT Strength Upper Extremity Strength Assessment Within Functional Limits Comments Strength Comments LUE strength WFL for use as non dominant hand OT- Coordination Assessment Comments Coordination Comments BUE WFL for self care OT-Muscle Tone Assessment Muscle Tone WNL Yes OT Sensation Assessment Comments Summary Comments SHAWN, pt denies deficits in LUE/hand and detects lt touch Edema Edema Absent M9 OT- IP Assessment and Plan Start: 06/13/19 11:30 Freq: Status: Active Protocol: Document 06/13/19 14:43 PJM (Rec: 06/13/19 16:35 PJM [id number]) OT Summary Assessment and Plan Potential Rehabilitation Potential Good Analytic Complexity at Evaluation Low Summary OT Impairments Functional Mobility,Dressing, Bathing,Shower Transfers, Activity Tolerance Assessment Summary Low complexity OT assessment completed on this 64 yr old male admitted with new DX of CHF. PMHX includes recent fall from ladder on 04/13/19 with R rib fx's and L facial trauma and old stroke with mild L side weakness 10 yrs ago, L wrist fx 2018. See H&P for further details. Pt's primary performance deficit is decreased activity tolerance. He is currently on room air with O2 sats 93-94 with seated activity this session. Pt also has performance deficits in lower body dressing and showering. Pt will benefit from 1-2 additional OT visits to address the goals below. Anticipate pt will be able to d/c home with assist from capable when medically stable and clears P.T. Goals Grooming Goal Independent Dressing Goal Independent,Long Handled Shoe Horn,Tilt Wall Supervisor,Sock Aid Toileting Goal Independent Bathing Goal Standby Assistance,Grab Bars, Hand Held Shower Sprayer,Long Handled Sponge or [place] Toilet Transfer Goal Independent Shower Transfer Goal Standby Assistance,Walk-in Shower,Shower Chair,Grab Bars Patient/Caregiver Education Goal Demonstrate Energy Conservation and Pacing Days to Meet Goals 3 Frequency of Treatment Frequency Of Treatment Once a Day Treatment Plan OT Treatment Plan ADL Training,Functional Mobility,Patient/Family Education,Discharge Planning Discharge Recommendations OT Discharge Recommendations Home with Assistance Transportation Needs at Discharge Private Vehicle
--- NOTE | 2019-06-13 16:30 | DIET.PN ---
Dietary Progress Note pt reports allergies c sx of facial swelling to: strawberries, avocado, peas, peanuts, chocolate and sx of headaches to: sulfites which are not in chart Assessment: 64y M admitted for SOB, LE edema dx c new onset CHF with dietary consult for same. 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 Pt cooks breakfast and dinner daily for his 88y father who has Parkinsons. 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 Recently tried to shop but got SOB before purchasing anything and had to go to car to sit down and leave. Pt endorses needing to take better nutritional care of himself, wants to start cooking the same healthy foods for his dad and himself now. HT: 170.1cm WT: 121.5kg c fluid on board BMI: 42.5 Labs: NTProBNP 1270 H MNA: 14 Tristan:22 Interventions: 1. Discussed relationship bw excess dietary sodium and CHF, tips to reduce salt in diet. 2. Discussed how excess weight, especially retained water, taxes the heart. 3. Discussed pt's goals with elder years, to retain mobility, meaningful activity. Diet Order: Heart Healthy EER: 1900kcal (-600 to promote wt loss), 100g PRO (1g/kg), 3L fluids (per CHF) Monitoring/Evaluations: daily weights please to track dry weight.
[2019-06-13] MEDS: FUROSEMIDE 40 MG/4 ML VIAL IV (18:07)
--- NOTE | 2019-06-13 18:07 | P.PN_ITS ---
Subjective Subjective Date Patient Seen: 06/13/19 Time Patient Seen: 11:00 Interval history: Mr. Octaviano Jj is a 64-year-old male with a history significant for coronary artery disease, hypertension, CVA with residual left side weakness and multiple traumas who presents to the emergency department 3 days of worsening shortness of breath.. He is admitted with decompensated heart failure N/C for follow-up today. He has not changed much symptomatically but thinks he may have slightly improved. He was switched to IV Lasix today for diuresis. He is net negative 800 cc as of this evening. Echo showed an EF of 50- 55% with mild MR but no other valvular abnormalities. Exam Vital Signs (past 8 hours): - 06/13/19 11:11 06/13/19 15:46 Temperature 97.9 F Pulse Rate 65 64 Respiratory Rate 17 Blood Pressure 158/92 H 149/77 H Pulse Oximetry 94 Oxygen Delivery Method Room Air Oxygen Flow Rate 2 Narrative Exam Narrative: GENERAL APPEARANCE: Obese male, Well developed, well nourished, in no acute distress. SKIN: Inspection of the skin reveals no rashes, ulcerations or petechiae. HEENT: The sclerae were anicteric and conjunctivae were pink and moist. E xtraocular movements were intact and pupils were equal, round with normal accommodation. External inspection of the ears and nose showed no scars, lesions, or masses. Lips, teeth, and gums showed normal mucosa. The oral mucosa, hard and soft palate, tongue and posterior pharynx were unremarkable. NECK: Supple and symmetric. There was no thyroid enlargement, and no tenderness, or masses were felt. CHEST: Normal AP diameter and normal contour without any kyphoscoliosis. LUNGS: Auscultation of the lungs revealed no wheezes, rhonchi, or rales. CARDIOVASCULAR: There was a regular rate and rhythm without any murmurs, gallops, rubs. Peripheral pulses were 2+ and symmetric. ABDOMEN: Soft and nontender with normal bowel sounds. No ascites was noted. MUSCULOSKELETAL: There was no tenderness or effusions noted. Muscle strength and tone were normal. EXTREMITIES: No cyanosis, clubbing or edema. NEUROLOGIC: Alert and oriented x 3. Normal affect. Gait was normal. Strength is +5/5 in the Upper Extremities and Lower Extremities Bilaterally. Sensation to touch was normal. Objective Labs Result Diagrams: 06/13/19 05:00 06/13/19 05:00 Labs: Laboratory Results - last 24 hr 06/12/19 06/12/19 06/13/19 16:00 20:28 05:00 WBC 6.5 RBC 4.69 Hgb 13.8 Hct 40.8 L MCV 86.8 MCH 29.4 MCHC 33.9 RDW 13.9 Plt Count 242 Neut % (Auto) 58.9 Lymph % (Auto) 23.5 L [place] % (Auto) 7.7 Eos % (Auto) 8.7 H Baso % (Auto) 1.2 Neut # (Auto) 3800 Lymph # (Auto) 1500 [place] # (Auto) 500 Eos # (Auto) 600 H Baso # (Auto) 100 Sodium Potassium Chloride Carbon Dioxide BUN Creatinine Estimated GFR BUN/Creatinine Ratio Glucose Calcium Magnesium 2.3 Total Creatine Kinase 83 CK-MB (CK-2) TNP CK-MB (CK-2) Rel Index TNP Troponin I < 0.012 Lipase 06/13/19 06/13/19 05:00 05:00 WBC RBC Hgb Hct MCV MCH MCHC RDW Plt Count Neut % (Auto) Lymph % (Auto) [place] % (Auto) Eos % (Auto) Baso % (Auto) Neut # (Auto) Lymph # (Auto) [place] # (Auto) Eos # (Auto) Baso # (Auto) Sodium 142 Potassium 4.2 Chloride 103 Carbon Dioxide 31 BUN 8 L Creatinine 1.00 Estimated GFR > 60.0 BUN/Creatinine Ratio 8.0 Glucose 104 Calcium 8.7 Magnesium Total Creatine Kinase CK-MB (CK-2) CK-MB (CK-2) Rel Index Troponin I Lipase 208 D Assessment & Plan Assessment & Plan narrative: This is a 64-year-old male patient who has had increasing shortness of breath, orthopnea and peripheral edema, cough productive for clear sputum and pleuritic chest pain for 3 days. 1. New onset congestive heart failure with preserved ejection fraction, acute, present on admission, active Patient describes no precipitating event but has had progressive symptoms for 3 days with shortness breath, orthopnea, pleuritic chest pain, cough and difficulty sleeping and lower extremity edema. Chest x-ray identifies bilateral patchy basilar infiltrates, CT angiogram finds no PE with cardiomyopathy and trace pulmonary edema without effusions. Patient with bibasilar crackles on exam, troponin at less than 0.012 and a positive pro BNP at 1270. Patient received Lasix 60 mg IV in the emergency department, received PO this morning but will return to IV diuresis today. Echocardiogram with EF 50-55% and mild MR. 2. Chest pain, acute, pleuritic, present on admission, improving. Patient described chest pain as pleuritic and had right lateral chest wall pain on lateral compression related to previous rib fractures. Troponin is less than 0.012 and procalcitonin is less than 0.05 he has white count of 7.8 and a D-dimer is elevated at 1094. CT angiogram finds no pulmonary embolism, cardiomyopathy, trace pulmonary edema without effusions and enlarged periesophageal lymph nodes. Possibly related to volume overload. Continue to follow while being diuresed. 3. Coronary artery disease, chronic, present on admission, active Patient complained of pleuritic chest pain and neck pain confounded by presence of healing rib fractures and cervical fusion. Twelve lead EKG shows sinus rhythm with a first-degree AV block with left atrial enlargement and noted Q-waves inferiorly in lead 3 and AVF but no evidence of ST or T-wave changes. Troponin on admission is less than 0.012 and proBNP is found mildly elevated at 1270. 4. Abdominal pain, elevated lipase, enlarged left lobe of liver, present on admission, active. Patient with generalized abdominal tenderness, patient denies nausea vomiting or changes in bowel habits or stool color. Abdomen is obese and firm limiting abdominal assessment CT imaging finds enlarged left lobe of liver and paraesophageal lymph node enlargement. Gallbladder is surgically absent and has elevated lipase at 1545 and. This improved today after diuresis. Abdominal pain may be secondary to volume overload however further outpatient evaluation may be warranted. 5. Hypokalemia, unknown if acute or chronic, present on admission, active Patient with hypokalemia on admission labs is 3.1. Patient is being diuresed receive 60 mg of Lasix in the emergency department. Ordered potassium 60 mEq IV Continue to follow BMP. 6. Elevated lipase, present on admission, improved. Lipase on admission is 1545. Patient has generalized tenderness of his abdomen and has had multiple abdominal surgeries reportedly for hernia repair. Patient denies abdominal pain worsening with eating, nausea vomiting or changes in stool. The patient is being diuresed for acute congestive heart failure, repeat value was much improved, consider further evaluation as outpatient. 7. Essential hypertension, chronic, present on admission, active The patient presents hypertensive with a pressure of 186/88 upon arrival in the ER, blood pressure minimally improved with diuresis. Patient currently taking Coreg 25 mg twice daily which is continued. Started losartan 50 mg PO daily. Diet: Low-sodium, low-fat, cardiac diet Dispo: Pending further diuresis at this time, anticipate discharge possibly tomorrow or the next day if he continues to improve. Quality VTE Deep Vein Thrombosis/Pulmonary Embolism Present on Admission: No
[2019-06-13] MEDS: MELATONIN 3 MG TABLET 6 MG PO (20:28)
[2019-06-13] MEDS: SODIUM CHLORIDE 0.9% FLUSH 10 ML IV (20:30)
[2019-06-14] VITALS (7 sets, daily range): BP systolic 144–172; BP diastolic 78–95; PULSE 65–68; RESP 14–20; TEMP 36.6–36.9; O2SAT 93–99
[2019-06-14 06:12] LABS: BUN Creatinine Ratio 14.5 (6-22); Blood Urea Nitrogen 16 mg/dL (9-20); Calcium 8.9 mg/dL (8.4-10.2); Carbon Dioxide 31 mmol/L (22-32); Chloride 99 mmol/L (98-107); Estimated Glomerular Filt Rate > 60.0 mL/min (>60); Glucose 110 mg/dL (80-110); HEMOLYSIS < 15 (0-50); Magnesium 1.8 mg/dL (1.6-2.3); Potassium 3.5 mmol/L (3.4-5.1); Sodium 140 mmol/L (137-145)
[2019-06-14] MEDS: FUROSEMIDE 40 MG/4 ML VIAL IV (06:47)
[2019-06-14] MEDS: OXYCODONE IR 10 MG TABLET PO ×2 (06:59→10:32)
--- NOTE | 2019-06-14 07:19 | PC.NURSE ---
nurse had me take vitals sitting 123/75 sitting then had me do standing 148/81 at 655 before we went for a walk
[2019-06-14] MEDS: ENOXAPARIN 40 MG/0.4 ML SYRINGE SUBCUT (09:03)
[2019-06-14] MEDS: LOSARTAN 50 MG TABLET PO ×2 (09:03→11:40)
[2019-06-14] MEDS: CLOPIDOGREL 75 MG TABLET PO (09:03)
[2019-06-14] MEDS: carvediloL 25 MG TABLET PO (09:03)
[2019-06-14] MEDS: SODIUM CHLORIDE 0.9% FLUSH 10 ML IV (09:04)
--- NOTE | 2019-06-14 10:18 | OT.IP.TRT ---
Current Diagnoses Heart failure, unspecified (06/12/19) Occupational Therapy Treatment Note M3 OT- IP Subjective and Pain Start: 06/13/19 11:30 Freq: Status: Active Protocol: Document 06/14/19 10:18 PJM (Rec: 06/14/19 17:44 PJ [id number]) OT- Subjective Occupational Therapy Visit Type Type Treatment Note Visit Start Time 09:45 Visit Stop Time 10:18 Total Visit Minutes 33 Occupational Therapy Visit Comments Patient Comments I am just getting ready to shower. Patient/Caregiver Goals to go home today OT Pain Assessment Pain When Pain Assessed After Treatment Pain Present Pain Present Denied Pain M4 OT- IP ADL's Start: 06/13/19 11:30 Freq: Status: Active Protocol: Document 06/14/19 10:18 PJM (Rec: 06/14/19 17:44 PJ [id number]) OT ADL-Grooming General Evaluation Grooming Ability Independent Comments OT Grooming Comments standing at sink OT ADL-Oral Care Comments Oral Care Comments standing at sink OT ADL-Dressing General Eval Upper Body Dressing Ability Standby Assistance Lower Body Dressing Ability Standby Assistance Areas Needing Assistance Pants/Shorts,Socks Assistive Devices Dressing Assistive Devices Manager Gift,Sock Aid Comments OT Dressing Comments Practiced lower body dressing with vat operator and sock aid for lower body dressing with emphasis on eliminating forward bending as this makes pt SOB and increases rib pain. OT ADL-Toileting General Evaluation Toileting Ability Independent OT ADL-Bathing Bathing Type Bathing Type Shower General Evaluation Bathing Ability Standby Assistance Areas Needing Assistance Retrieving/Setting Up Items Devices Bathing Equipment Long Handled Sponge or [place], Hand Held Shower Sprayer, Shower Chair with Arms,Grab Bars Comments OT Bathing Comments Provided education re: body mechanics due to R rib fx's and energy conservation and pacing. O2 sats mid 90's on room air at start of session. Pt mildly SOB at end of shower . Educated re: pursed lip breathing. O2 sats 93 after 1 min recovery, seated. M6 OT- IP Functional Cognition Start: 06/13/19 11:30 Freq: Status: Active Protocol: Document 06/14/19 10:18 PJM (Rec: 06/14/19 17:44 PJ [email or web address]) Cognitive Factors Limiting Selfcare Function Cognitive Ability Level of Alertness Alert Cognitive Comments Cognitive Assessment Comments Pt verbalizes understanding of education re: energy conservation, pacing and pursed lip breathing. Written handout provided. M7 OT- IP Mobility and Balance Start: 06/13/19 11:30 Freq: Status: Active Protocol: Document 06/14/19 10:18 PJM (Rec: 06/14/19 17:44 [facility] [email or web address]) OT-Transfer Assessment Sit to and From Stand Sit to and from Stand Standby Assistance,1 Person Assistance Transfers Transfer Ability Standby Assistance,1 Person Assistance Technique Transfer Destination Chair,Shower Stall,Toilet Transfer Technique Stand Step Pivot Devices Transfer Assistive Devices Front Wheeled Walker OT- Gait Assessment Gait Distance (Feet) 20 Assistive Devices Assistive Device Front Wheeled Walker Comments Gait Ability Comments Pt tends to move quickly and leave FWW behind. Needs verbal cues to slow down. OT- Balance Assessment Sitting Balance and Reactions Static Sitting Balance Ability Good Dynamic Sitting Balance Ability Good Standing Balance and Reactions Static Standing Balance Ability Good Dynamic Standing Balance Ability Good M9 OT- IP Assessment and Plan Start: 06/13/19 11:30 Freq: Status: Active Protocol: Document 06/14/19 10:18 PJM (Rec: 06/14/19 17:44 [facility] [id number]) OT Summary Assessment and Plan Potential Rehabilitation Potential Good Summary Progress Towards Goals Safe For Discharge,Goals Met Assessment Summary All OT goals achieved for this admission. See details above. Pt plans to d/c home today with 24 hr assist from if cleared by MD. No further OT services needed. Frequency of Treatment Frequency Of Treatment Discharge Discharge Recommendations OT Discharge Recommendations Home with 24/ Assist Transportation Needs at Discharge Private Vehicle
--- NOTE | 2019-06-14 11:18 | PT.IPTN ---
Current Diagnoses Heart failure, unspecified (06/12/19) Physical Therapy Treatment Note M2 PT-IP Current Condition Start: 06/13/19 08:20 Freq: NEEDED Status: Active Protocol: Document 06/13/19 09:05 HH (Rec: 06/13/19 10:25 [email or web address]) Physical Therapy Current Condition Current Condition Evaluation Date 06/13/19 Treatment Diagnosis Acute CHF, CAD, chest pain, SOB, difficulty in walking Onset Date a week ago Weight Bearing Status Weight Bearing Status Full Weight Bearing M3 PT-IP Subjective Start: 06/13/19 08:20 Freq: NEEDED Status: Active Protocol: Document 06/14/19 10:45 HH (Rec: 06/14/19 11:18 [email or web address]) Subjective Physical Therapy Visit Type Type Treatment Note Visit Start Time 10:45 Visit Stop Time 11:03 Total Visit Minutes 18 Number of MARINE ENGINE MECHANIC Visits 0 Physical Therapy Visit Comments Patient Comments I feel better today with less wheezing.I think im ready to go home. Therapy Pain Assessment Pain When Pain Assessed During Mobility Pain Present Pain Present Pain Reported Location R lower ribs Intensity 2 Scale Used Numeric (1 - 10) Description Aching Pain Management Techniques Timing of Activity with Medications Neck Intensity 2 Scale Used Numeric (1 - 10) Description Aching Pain Management Techniques Timing of Activity with Medications M4 PT-IP Mobility and Gait Start: 06/13/19 08:20 Freq: NEEDED Status: Active Protocol: Document 06/14/19 10:45 HH (Rec: 06/14/19 11:18 [email or web address]) PT-Transfer Assessment Sit to and From Stand Sit to and from Stand Standby Assistance,Use of Upper Extremities Equipment Transfer Assistive Device None Orthotic/Prosthetic Devices or Brace: No Transfers Transfer Destination Bed,Chair Transfer Technique Stand Step Pivot Transfer Ability Level of Assist Standby Assistance,Use of Upper Extremities Comments Mobility Comments Pt was up in chair upon PT arrival. BP at 144/78 HR 69. Pt completed sit to stand with UE pushed off throguh chair armrests. He used SPC to amb from chair to the entire AC unit and returned to chair after with SBA. Gait Assessment Gait Gait Assistance Required: Standby Assistance Distance (Feet) 340 Able to Maintain Weight Bearing Status Yes During Gait Assistive Devices Assistive Device None,Gait Belt,Straight Cane Gait Deviations General Gait Pattern Decreased Stride Length, Decreased Feet Clearance Factors Limiting Gait Function Factors Limiting Gait Function Decreased Activity Tolerance, Poor Balance Comments Gait Comments Pt amb the entire AC unit with SPC and SBA. He did not show any sign of LOB but did have SOB towards the end of 50 feet . Pt has improved gait efficiency with improved L foot clearance and stride length. BP was at 166/123 HR 72 without discomfort. SpO2 was at >95% for the entire session. Stair Climbing Assessment Evaluation Level of Assist On Stairs Standby Assistance Devices Stair Climbing Assistive Devices Left Railing Technique/Endurance Stair Climbing Direction Ascend and Descend Stair Climbing Technique Step Over Step,Step to Step Number of Steps Climbed 3 Stair Climbing Set # Repetitions (reps) 2 M5 PT-IP Objective Assessments Start: 06/13/19 08:20 Freq: NEEDED Status: Active Protocol: Document 06/13/19 09:05 (Rec: 06/13/19 10:25 [email or web address]) Orientation Orientation/Cognition Level of Alertness Alert Orientation Name,Age,Birthday,Month,Date, Year,Day of Week,Place, Situation Language Function Ability No Deficits Noted Safety Awareness Understands Safety Issues Memory Description No Deficits Noted Gross Range of Motion Upper Extremity ROM Assessment Within Functional Limits Lower Extremity ROM Assessment Within Functional Limits Strength Upper Extremity Strength Assessment Within Functional Limits Lower Extremity Strength Assessment Within Functional Limits Coordination Assessment Gross Coordination Gross Coordination WNL Sensation Assessment Sensation Gross Sensation WNL M6 PT-IP Treatment Start: 06/13/19 08:20 Freq: NEEDED Status: Active Protocol: Document 06/13/19 09:05 (Rec: 06/13/19 10:25 [email or web address]) Physical Therapy Treatment Exercises Exercises Ankle Pumps,Quad Sets Education Education Provided Safety M7 PT-IP Assessment and Plan Start: 06/13/19 08:20 Freq: NEEDED Status: Active Protocol: Document 06/14/19 10:45 (Rec: 06/14/19 11:18 [email or web address]) PT Summary Assessment and Plan Potential Rehabilitation Potential Excellent Status of Condition at Evaluation Stable Summary Impairments Strength,Balance,Bed Mobility, Transfers,Gait,Activity Tolerance Progress Towards Goals Safe For Discharge Assessment Summary Pt met all his rehab goals today without discomfort. Able to amb with SPC and climb stairs with L rail with SBA. His BP did elevate but asymptomatic and SpO2 maintained >95% without NC. Pt is safe to be d/c at this point with home health therapy to improve his mobility and strength prior to participate outpatient therapy. Frequency of Treatment Frequency Of Treatment Discharge Recommendations To Nursing Amount of Assist Needed Standby Assistance Discharge Recommendations PT Discharge Recommendations Home with Assistance,Home Health Transportation Needs at Discharge Private Vehicle
--- NOTE | 2019-06-14 13:33 | P.DS_ITS ---
History of Present Illness History of Present Illness Date Patient Seen: 06/14/19 Time Patient Seen: 13:33 Chief complaint: Diff breathing 3 days,worsening with lying down Narrative: As per TERRA Tom: Mr. 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 The patient reports exertional dyspnea and orthopnea with development of lower extremity swelling over the same period. He complains of headache and neck pain but this is been chronic related to cervical fusion with pain radiating into the trapezius bilaterally as well as bilateral chest pain that is mild increasing on deep inspiration. He has had a cough productive for clear sputum that produces chest pain. Patient additionally reports recent trauma to the left face and right rib fractures from a fall which continues to bother him. He has had multiple surgeries bilateral shoulders and numerous abdominal surgeries for hernia repair. Reports no recent illness and denies fevers or chills nasal congestion or sore throat. He has had no recent sick contacts. He has chest pain without palpitations and shortness of breath with cough as previously noted. He has generalized abdominal tenderness which appears to be longstanding and denies nausea vomiting and has no diarrhea or constipation. His last bowel movement was this morning. He reports no difficulty urinating. He has a residual left-sided weakness from a stroke 10 years ago and is experience numerous falls. Upon arrival to the ER the patient is afebrile with a temperature 97.9?, heart rate of 70, blood pressure elevated 186/88, respiratory rate of 29 saturating 99% on 2 liters/minute nasal cannula. On chest x-ray the patient is found to have patchy bibasilar infiltrates and enlarged cardiac silhouette. Patient has elevated D-dimer at [address] angio that is negative for PE and finds cardiomyopathy with trace pulmonary edema without effusions, enlarged periesophageal nodes and enlarged liver. Twelve lead EKG finds sinus rhythm with ventricular rate of 71, first-degree AV block with a OH interval of 216 milliseconds left atrial enlargement and Q-waves are noted inferiorly in lead [address] or T-wave abnormalities are noted. On laboratory analysis the p atient has white count of 7.8, hemoglobin 13.6, hematocrit of 40.3 and platelets of 259. He has a PT of 13.3, INR of 1.2 and a PTT of 34. His sodium is 142 and he is hypokalemic with 3.1. He has a BUN of 6 and creatinine 0.9, his nonfasting glucose is 98. His LFTs are within normal ranges and has a elevated lipase at 1545. He has a troponin of less than 0.012 and elevated proBNP of 1270. In the ER the patient received 60 mg of Lasix IV as well as morphine 4 mg and nitro paste. Following treatment the patient states he has less chest pain and is feeling better. Patient is admitted to the hospital for further evaluation management of new onset heart failure. Discharge Providers Provider Date of admission: 06/12/19 18:21 Discharge Date: 04/13/20 Consults: 06/12/19 20:01 Consult to Dietitian, Adult Routine Comment: Reason For Exam: New onset CHF, Obese BMI 40.7 06/12/19 20:02 Consult to Discharge Planning Routine Comment: Consult to Occupational Therapy Evaluate & Treat Comment: Hx CVA with left misha Physician Instructions: Evaluate and treat Consult to Physical Therapy Evaluate & Treat Comment: Hx CVA with left misha Physician Instructions: Evaluate and Treat Consult to Respiratory Therapy Evaluate & Treat Comment: SOB, wheezing, ?COPD Physician Instructions: Evaluate and treat Discharge provider: Teofilo Whittington DO Summary Hospital Course Discharge Diagnosis: See problem list noted in hospital course. Hospital Course: This is a 64-year-old male patient who has had increasing shortness of breath, orthopnea and peripheral edema, cough productive for clear sputum and pleuritic chest pain for 3 days. 1. New onset congestive heart failure with preserved ejection fraction, acute, present on admission, active Patient describeed no precipitating event but has had progressive symptoms for 3 days with shortness breath, orthopnea, pleuritic chest pain, cough and difficul ty sleeping and lower extremity edema. Chest x-ray showed bilateral patchy basilar infiltrates, CT angiogram with no PE with cardiomyopathy and trace pulmonary edema without effusions. Patient with bibasilar crackles on admission exam, troponin at less than 0.012 and a positive pro BNP at 1270. Symptoms improved with IV diuresis and patient was discharged on oral lasix. Patient received Lasix 60 mg IV in the emergency department and was then given oral lasix on admission but changed back to IV lasix for further diuresis prior to discharge. Echocardiogram with EF 50-55% and mild MR. 2. Chest pain, acute, pleuritic, present on admission, improving. Patient described chest pain as pleuritic and had right lateral chest wall pain on lateral compression related to previous rib fractures. Troponin is less than 0.012 and procalcitonin is less than 0.05 he has white count of 7.8 and a D-dimer is elevated at 1094. CT angiogram finds no pulmonary embolism, cardiomyopathy, trace pulmonary edema without effusions and enlarged periesophageal lymph nodes. Possibly related to volume overload. Chest pain had markedly improved by time of discharge. 3. Coronary artery disease, chronic, present on admission, active Patient complained of pleuritic chest pain and neck pain confounded by presence of healing rib fractures and cervical fusion, likely not related to coronary disease. Twelve lead EKG showed sinus rhythm with a first-degree AV block with left atrial enlargement and noted Q-waves inferiorly in lead 3 and AVF but no evidence of ST or T-wave changes. Troponin on admission was less than 0.012 and proBNP is found mildly elevated at 1270 as noted above. 4. Abdominal pain, elevated lipase, enlarged left lobe of liver, present on admission, active. Patient with generalized abdominal tenderness on admission that improved. CT imaging finds enlarged left lobe of liver and paraesophageal lymph node enlargement. Gallbladder is surgically absent and has elevated lipase at 1545 on admission that markedly improved the next morning after diuresis. Abdominal pain and lipase elevation may be secondary to volume overload however further outpatient evaluation may be warranted. 5. Hypokalemia, unknown if acute or chronic, present on admission, improved. Patient with hypokalemia on admission labs was 3.1 which improved after repletion. 6. Elevated lipase, present on admission, improved. Lipase on admission is 1545. Further discussed under abdominal pain as noted above. 7. Essential hypertension, chronic, present on admission, active The patient presented hypertensive with a pressure of 186/88 upon arrival in the ER, blood pressure minimally improved with diuresis. Improved somewhat after interventions noted below. Patient to follow up with primary care for further BP management. Patient currently taking Coreg 25 mg twice daily which was continued. Started losartan 50 mg PO daily initially, then increased to 100 mg. He was further discharged on oral Lasix. Diet: Low-sodium, low-fat, cardiac diet Dispo: Pending further diuresis at this time, anticipate discharge possibly tomorrow or the next day if he continues to improve. Time Spent with Patient Time spent: Greater than 30 minutes Exam Vital Signs (past 8 hours): - 06/14/19 06:55 06/14/19 08:30 06/14/19 08:53 Temperature 97.9 F 98.4 F Pulse Rate 65 68 67 Respiratory Rate 16 20 14 Blood Pressure 172/78 H Pulse Oximetry 99 93 93 06/14/19 09:03 06/14/19 11:07 06/14/19 11:40 Temperature Pulse Rate 67 Respiratory Rate Blood Pressure 172/78 H 144/78 H 144/78 H Pulse Oximetry 96 Oxygen Delivery Method Room Air Oxygen Flow Rate 0 Narrative Exam Narrative: Exam Narrative: GENERAL APPEARANCE: Obese male, Well developed, well nourished, in no acute distress. SKIN: Inspection of the skin reveals no rashes, ulcerations or petechiae. HEENT: The sclerae were anicteric and conjunctivae were pink and moist. Extraocular movements were intact and pupils were equal, round with normal accommodation. External inspection of the ears and nose showed no scars, lesions, or masses. Lips, teeth, and gums showed normal mucosa. The oral mucosa, hard and soft palate, tongue and posterior pharynx were unremarkable. NECK: Supple and symmetric. There was no thyroid enlargement, and no tenderness, or masses were felt. CHEST: Normal AP diameter and normal contour without any kyphoscoliosis. LUNGS: Auscultation of the lungs revealed no wheezes, rhonchi, or rales. CARDIOVASCULAR: There was a regular rate and rhythm without any murmurs, gallops, rubs. Peripheral pulses were 2+ and symmetric. ABDOMEN: Soft and nontender with normal bowel sounds. No ascites was noted. MUSCULOSKELETAL: There was no tenderness or effusions noted. Muscle strength and tone were normal. EXTREMITIES: No cyanosis, clubbing or edema. NEUROLOGIC: Alert and oriented x 3. Normal affect. Gait was normal. Strength is +5/5 in the Upper Extremities and Lower Extremities Bilaterally. Sensation to touch was normal. Objective Labs Result Diagrams: 06/13/19 05:00 06/14/19 05:23 Labs: Laboratory Results - last 24 hr 06/14/19 05:23 Sodium 140 Potassium 3.5 Chloride 99 Carbon Dioxide 31 BUN 16 Creatinine 1.10 Estimated GFR > 60.0 BUN/Creatinine Ratio 14.5 Glucose 110 Calcium 8.9 Magnesium 1.8 Discharge Plan Discharge Plan Patient Disposition: Home Health Service Discharge comment: You were admitted to the hospital with a new diagnosis of heart failure. Your symptoms improved with IV lasix and you had 3L of fluid removed in total. You are being discharged on lasix, 40 mg twice daily which may need to be adjusted at your follow up visit at the residency clinic at [facility] on 06/19/2019 at 3:45 pm. Your blood pressure medications have also been increased. Please continue to weigh yourself at the same time every day. If you continue to gain between 4-5 lbs please speak with your primary care provider. Discharge orders & Medications Prescriptions: New cyclobenzaprine 10 mg Tablet 10 mg PO Q8HR PRN (Reason: Spasms) 7 Days Qty: 10 RF: 0 losartan 100 mg tablet 100 mg PO DAILY 30 Days Qty: 30 RF: 0 clopidogrel 75 mg Tablet 75 mg PO DAILY 30 Days Qty: 30 RF: 0 furosemide 40 mg tablet 40 mg PO BID 30 Days Qty: 60 RF: 0 Continued carvedilol 25 mg Tablet 25 mg PO BID RF: 0 acetaminophen 500 mg Tablet 1,000 mg PO Q6H PRN (Reason: Pain (Scale Score 1-3)) RF: 0 Discontinued clopidogrel [Plavix] 75 mg Tablet 75 mg PO DAILY RF: 0 Discharge Health Status Health Concerns: diastolic heart failure obesity Hypertension Diet/Activity/Treatments Diet: Diet as Tolerated and Low-sodium Activity: As tolerated Other treatments: Follow up appt on Jun 19 at 3:45pm at [facility]. Visit Report/Discharge Packet Instructions: Heart Failure, DI for Heart Failure, Low-Sodium Diet, Cyclobenzaprine, Losartan, Heart Failure: Salt and Fluids Discharge Data Attending Provider: Zainab Sethi Admit Date/Time: 06/12/19 18:21 Discharges patient from system. Discharge Date/Time: 06/14/19 15:08 Quality VTE Deep Vein Thrombosis/Pulmonary Embolism Present on Admission: No
[2019-06-14] MEDS: CYCLOBENZAPRINE 10 MG TABLET PO (14:23)
--- NOTE | 2019-06-14 14:59 | CM.DPC ---
DCP: continued: case received, discussed in Team Rounds and with Dr. Whittington noting d/c planned for today. PT was seeing pt; recommended HH service. Met now with pt and introduced self and role. Pt was found up, dressed, moving independently about room. Brief discussion of HH services. Pt says that his preference would be to again go to the [facility] to work with PT and he also plans to see the aircraft life support fitter as he has already lost 20+ lbs working with her and is very motivated to continue this. He confirms he is not homebound. (and thus not eligible for HH) He clarifies PCP: is no longer the [facility] physician Margaret Siegel as she is rarely there. He had an appt set up at [facility] with Dr. Westfall in June. He says he appreciates that Dr. Whittington was able to get this moved up til Monday 06/19. Dr Westfall is his new PCP. KEN Anthony is updated. Will update Dr. Whittington when he is available. P: home today as per above once final d/c paperwork is completed.
--- NOTE | 2019-06-14 15:05 | PC.NURSE ---
Went over dc meds and instructions with patient, questions answered. New medications sent to [facility], CHF instructions given and discussed. Patient taken via wc to vehicle driven by spouse. Patient had all belongings.
== END 2019-06-14 15:08 | disposition home health service (06) ==
LOC: ED 18:21 → AC 06-13 07:54
PROVIDERS: Internal Medicine; Nurse Practitioner Adult Health; Admitting Provider Internal Medicine; Emergency Provider Emergency Medicine; Family Provider Family Medicine; Referring Provider Emergency Medicine; Visit Provider Internal Medicine
DX: I50.9 Heart failure, unspecified (principal); R06.02 Shortness of breath; I25.10 Atherosclerotic heart disease of native coronary artery without angina pectoris; I69.354 Hemiplegia and hemiparesis following cerebral infarction affecting left non-dominant side; I10 Essential (primary) hypertension; R07.81 Pleurodynia; E87.6 Hypokalemia; E66.9 Obesity, unspecified; Z68.41 Body mass index [BMI] 40.0-44.9, adult; R16.0 Hepatomegaly, not elsewhere classified; R74.8 Abnormal levels of other serum enzymes
CPT/HCPCS: 36415; 71045; 71275; 80048; 80053; 82550; 83690; 83735; 83880; 84145; 84484; 85025; 85379; 85610; 85730; 93005; 93306; 94640; 94762; 96365; 96366; 96372; 96374; 96375; 96376; 97116; 97161; 97165; 97535; 99285; G0378; J1650; J1940; J2270; J3480; J7613; Q9957; Q9967

== ENCOUNTER → 2020-03-06 08:59 | Outpatient (CLI) | payer MEDICAID, OTHER, SELFPAY ==
--- NOTE | 2020-03-06 | DI.MRI.S_ITS ---
PROCEDURE: MR CERVICAL SPINE WO CON INDICATIONS: radiculopathy TECHNIQUE: Noncontrast sagittal T1 spin echo and T2 fast spin echo, sagittal STIR, foraminal oblique sagittal T2 fast spin echo, and axial gradient echo or T2 fast spin echo through the cervical spine. COMPARISON: [facility], MR, C-SPINE WITHOUT CONTRAST, 07/03/2008, 19:24. [facility], CT, CT CERVICAL SPINE WITHOUT CONTRAST, 08/12/2018, 12:42. FINDINGS: Image quality: This examination is limited by involuntary motion artifact. Alignment and Curvature: There is overall straightening of the normal cervical lordosis. No focal AP alignment abnormality is seen. Bone Marrow: Marrow demonstrates normal overall signal. Spinal Cord: Visualized spinal cord has normal size and signal. No cerebellar tonsillar herniation. Paraspinous Soft Tissues: No paravertebral masses. Prevertebral soft tissues are normal in thickness. C5 through C7 fusion is again seen. C2-C3: Mild loss of disc height is seen. Loss of disc signal is seen. Mild disc osteophyte complex is seen, with a central/right disc osteophyte protrusion. There is at least moderate right-sided and mild left-sided facet hypertrophy seen. Mild bilateral neural foraminal narrowing is seen. Mild central canal narrowing is seen. C3-C4: The disc height is well-preserved. Loss of disc signal is seen at this level. Moderate generalized disc osteophyte complex is seen. There is mild to moderate right-sided and moderate to prominent left-sided facet hypertrophy seen. There is moderate to severe left-sided and at least moderate right-sided neural foraminal narrowing seen. Mild to moderate central canal narrowing is seen. C4-C5: The disc height is well-preserved. Loss of disc signal is seen at this level. Moderate disc osteophyte complex is seen, with a central disc osteophyte protrusion, as on series 3, image 21. Bridging endplate osteophytes are seen anteriorly. There is mild right-sided and at least moderate left-sided facet hypertrophy seen. There is moderate to severe right-sided and at least moderate left-sided neural foraminal narrowing seen. Moderate to severe central canal narrowing is seen. There is associated mass effect upon the ventral spinal cord. C5-C6: Bony fusion changes are seen at this level. Moderate disc osteophyte complex is seen, with a central disc osteophyte protrusion seen. Mild facet joint hypertrophy is seen. There is mild right-sided and at least moderate left-sided neural foraminal narrowing seen. Moderate central canal narrowing is seen. There is associated mass effect upon the ventral spinal cord. C6-C7: There are bony fusion changes seen at this level. There are bony fusion changes seen at this level. Mild to moderate disc osteophyte complex is seen. There is mild facet hypertrophy seen. There is moderate bilateral neural foraminal narrowing seen, right worse than left. Mild to moderate central canal narrowing is seen. C7-T1: The disc height is well-preserved. Loss of disc signal is seen at this level. Mild to moderate disc osteophyte complex is seen, which is eccentric to the left. There is moderate left-sided and mild right-sided neural foraminal narrowing seen. Minimal central canal narrowing is seen. IMPRESSION: Multiple levels of degenerative change are seen, which have progressed over time. C5 through C7 vertebral body fusion again seen. Dictated by: Hugo Lagos M.D. on 03/06/2020 at 10:15 Approved by: Hugo Lagos M.D. on 03/06/2020 at 10:24
== END ==
PROVIDERS: Family Provider Family Medicine; PCP Physician Assistant; Referring Provider Physician Assistant; Visit Provider Physician Assistant
DX: M47.22 Other spondylosis with radiculopathy, cervical region (principal); Z98.1 Arthrodesis status
CPT/HCPCS: 72141

== ENCOUNTER 2020-07-12 18:27 | Emergency (ER) | payer MEDICARE, MEDICAID, OTHER, SELFPAY ==
[2020-07-12] VITALS (79 sets, daily range): BP systolic 86–273; BP diastolic 51–149; PULSE 61–104; RESP 6–38; TEMP 36.2; O2SAT 88–100
[2020-07-12 18:46] LABS: Add Manual Diff / Slide Review NO; Basophils Absolute Auto 200 /uL (0-100); Basophils Percent Auto 1.3 % (0-2); Eosinophils Absolute Auto 600 /uL (0-450); Eosinophils Percent Auto 4.6 % (2-4); Hemoglobin 15.1 g/dL (13.5-17.5); INR 1.1 (0.9-1.3); Lymphocytes Absolute Auto 5000 /uL (1100-4500); Lymphocytes Percent Auto 35.9 % (25-40); Mean Corpuscular HGB Conc 32.2 % (30-36); Mean Corpuscular Hemoglobin 29.2 PG (26-34); Mean Corpuscular Volume 90.7 fL (80-100); Monocytes Absolute Auto 1000 /uL (0-900); Monocytes Percent Auto 6.9 % (3-14); Neutrophils Absolute Auto 7100 /uL (1500-7000); Neutrophils Percent Auto 51.3 % (50-75); Platelet Count 373 X10^3/uL (150-400); Prothrombin Time 11.9 SECONDS (10.1-12.7); Red Blood Cell Count 5.19 X10^6/uL (4.5-5.9); Red Cell Distribution Width 14.4 % (11.6-14.8); White Blood Cell Count 13.8 X10^3/uL (4.5-11.0)
[2020-07-12] MEDS: FLUMAZENIL 0.5 MG/5 ML MDV IV (18:47)
[2020-07-12] MEDS: NALOXONE 1 MG/ML SYRINGE 2 MG (18:47)
--- NOTE | 2020-07-12 18:50 | ED_ITS ---
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 Reports are that he walked over to his neighbor's house sat down stated he did not feel well and passed out. 911 was called. There was no re port of seizure activity. In trying to understand remainder of events surrounding this, his family does not report that he has been particularly ill recently. No cough were pain complaints. His sister notes that he dropped a bit of hot food on the left dorsum of foot and has a small wound there. With intermittent episodes of increased lucidity in the emergency department yeast told nursing staff that he perhaps did have a headache maybe had some chills question of some chest pain. Medical records indicate he is on Plavix and clinical exam has a mild abrasion over the right eye. His sister notes that he in his partner have been having difficulties and she had a add overdose attempt about a week ago. Possibility of overdose is certainly entertained. Initial interventions by medics and on arrival in the emergency room are Narcan as well as Romazicon neither of which had significant response. Related Data Home Medications Medication Instructions Recorded Confirmed acetaminophen 1,000 mg PO Q6H PRN 11/21/18 07/12/20 carvedilol 12.5 mg PO BID 11/21/18 07/12/20 losartan 50 mg PO DAILY 07/12/20 07/12/20 Allergies Allergy/AdvReac Type Severity Reaction Status Date / Time NSAIDS (Non-Steroidal Allergy Severe Swelling Verified 07/12/20 19:31 Anti-Inflamma of Lip/Tongue/Throat chocolate flavor Allergy Intermediate Swelling Verified 07/12/20 19:31 of Lip/Tongue/Throat peanut Allergy Intermediate Swelling Verified 07/12/20 19:31 of Lip/Tongue/Throat strawberry Allergy Intermediate Swelling Verified 07/12/20 19:31 of Lip/Tongue/Throat celecoxib [From CELEBREX] Allergy Unknown Verified 07/12/20 19:31 lisinopril [LISINOPRIL] Allergy Unknown Verified 07/12/20 19:31 meloxicam [MELOXICAM] Allergy Unknown ANAPHYLAXSI Verified 07/12/20 19:31 S Penicillins [PENICILLINS] Allergy Unknown Verified 07/12/20 19:31 avocado AdvReac Intermediate Swelling Verified 07/12/20 19:31 of Lip/Tongue/Throat peas AdvReac Intermediate Swelling Verified 07/12/20 19:31 of Lip/Tongue/Throat sulfite AdvReac Intermediate Migraine Verified 07/12/20 19:31 Review of Systems Review of Systems ROS Unobtainable: Unobtainable due to mental status/LOC Patient History Medical History Coronary artery disease Hypertension Left hemiparesis Right rib fracture Stroke Surgical History History of cholecystectomy History of laparotomy History of shoulder surgery History of surgery on wrist Hx of fusion of cervical spine Family History Father Parkinsons Mother Cancer Brother Cancer Sister No significant medical problems Social History household members: spouse Smoking Status: Never smoker alcohol intake: never substance use type: does not use Smoking Status: Never smoker alcohol intake frequency: holidays/special occasions only Substance Use Type: marijuana Exam Narrative Exam Narrative: General: Obtunded, responding to sternal rub, shallow breathing HEENT: Moist mucous membranes, normal sclera with 3 mm pupils that are sluggishly reactive. Mild abrasion over the right eyebrow and suggestion of resolving hematoma to the right eye. Mild edema around both eyes Neck: No JVD, supple Respiratory: Lungs with mild bibasilar crackles but no wheezing and no rhonchi. Shallow but symmetrical. Cardiac: Regular rate and rhythm no murmurs no bruits Abdomen: Obese, Soft, mild pain behaviors with palpation of abdomen, good bowel tones, no pain behaviors with flank palpation Skin: Warm and dry, he has a small healing wound to the dorsum of the left foot, minor scratches and other wounds Neurologic: Essentially obtunded but moving all extremities. He is not hyper- reflexic Extremities: No obvious trauma, well perfused Psych: Acutely altered mental status, minimally responsive Initial Vital Signs Initial Vital Signs: Vital Signs Temperature 97.1 F L 07/12/20 18:25 Pulse Rate 104 H 07/12/20 18:25 Respiratory Rate 29 H 07/12/20 18:25 Blood Pressure 197/109 H 07/12/20 18:25 Pulse Oximetry 95 07/12/20 18:25 Procedures Intubation Time out performed: Yes sedative: Etomidate Mg Given: 40 paralytic: Succinylcholine Mg Given: 120 Laryngoscope: fiber optic video scope Assist Device Used: fiber optic device ET Tube Size: 8 ET Tube Uncuffed: Yes Tube Secured Depth (cm): 25 Tube Secured Location: lips Tube Placement Confirmation: Visualized tube passing through cords, Equal breath sounds bilaterally, No breath sounds over epigastrium, Confirmation by capnometry and Chest Xray Patient Tolerated Procedure: Well Intubation Complications: none Course Orders Ordered: ED Orders 07/12/20 22:12 ABG [Arterial Blood Gas] Stat 07/12/20 22:40 EKG-12 Lead Stat Discontinued Medications Etomidate (Etomidate 2 Mg/Ml 10 Ml Vial) 40 mg IV NOW ONE Stop: 07/12/20 20:55 Last Admin: 07/12/20 21:06 Dose: 40 mg Documented by: CANDELARIA Fentanyl (Fentanyl 100 Mcg/2 Ml Inj) 50 mcg IV Q15MIN PRN PRN Reason: Pain, Moderate (4-6) Last Admin: 07/13/20 01:12 Dose: 50 mcg Documented by: Admin: 07/12/20 21:47 Dose: 50 mcg Documented by: Admin: 07/12/20 21:29 Dose: 50 mcg Documented by: Admin: 07/12/20 21:16 Dose: 50 mcg Documented by: CANDELARIA Piperacillin Sod/Tazobactam (Sod 4.5 gm/ Sodium Chloride) 100 mls @ 200 mls/hr IV NOW ONE Stop: 07/12/20 20:07 Last Infusion: 07/12/20 21:58 Dose: 0 mls/hr Documented by: Admin: 07/12/20 20:42 Dose: 200 mls/hr Documented by: CANDELARIA Sodium Chloride (Normal Saline 0.9%) 1,000 mls @ 1,000 mls/hr IV BOLUS ONE Stop: 07/12/20 21:08 Last Infusion: 07/12/20 21:59 Dose: 0 mls/hr Documented by: Admin: 07/12/20 20:14 Dose: 1,000 mls/hr Documented by: CANDELARIA Propofol (Propofol) 1,000 mg in 100 mls @ 3.81 mls/hr IV TITRATE CHRISTIANE; Protocol Last Titration: 07/13/20 01:20 Dose: 0 mcg/kg/min, 0 mls/hr Documented by: Admin: 07/13/20 01:14 Dose: 45 mcg/kg/min, 34.292 mls/hr Documented by: Titration: 07/13/20 01:14 Dose: 45 mcg/kg/min, 34.292 mls/hr Documented by: Admin: 07/13/20 00:00 Dose: 45 mcg/kg/min, 34.292 mls/hr Documented by: Titration: 07/12/20 23:59 Dose: 0 mcg/kg/min, 0 mls/hr Documented by: Titration: 07/12/20 23:55 Dose: 45 mcg/kg/min, 34.292 mls/hr Documented by: Titration: 07/12/20 22:32 Dose: 40 mcg/kg/min, 30.481 mls/hr Documented by: Titration: 07/12/20 22:19 Dose: 50 mcg/kg/min, 38.102 mls/hr Documented by: Titration: 07/12/20 21:41 Dose: 60 mcg/kg/min, 45.722 mls/hr Documented by: Titration: 07/12/20 21:31 Dose: 40 mcg/kg/min, 30.481 mls/hr Documented by: Titration: 07/12/20 21:29 Dose: 30 mcg/kg/min, 22.861 mls/hr Documented by: Titration: 07/12/20 21:22 Dose: 10 mcg/kg/min, 7.62 mls/hr Documented by: Admin: 07/12/20 21:07 Dose: 5 mcg/kg/min, 3.81 mls/hr Documented by: CANDELARIA Sodium Chloride (Normal Saline 0.9%) 1,000 mls @ 100 mls/hr IV BOLUS ONE Stop: 07/13/20 07:01 Last Infusion: 07/13/20 01:21 Dose: 0 mls/hr Documented by: Admin: 07/12/20 21:09 Dose: 100 mls/hr Documented by: CANDELARIA Succinylcholine Chloride (Succinylcholine 200 Mg/10 Ml Vial) 100 mg IV NOW ONE Stop: 07/12/20 20:55 Last Admin: 07/12/20 21:06 Dose: 100 mg Documented by: CANDELARIA Vital Signs Vital signs: Vital Signs - 8 hr 07/12/20 23:05 07/12/20 23:10 07/12/20 23:15 Temperature Pulse Rate 63 64 63 Respiratory Rate 18 18 18 Blood Pressure 131/68 Pulse Oximetry 97 97 97 07/12/20 23:20 07/12/20 23:25 07/12/20 23:30 Temperature Pulse Rate 63 64 62 Respiratory Rate 34 H 18 18 Blood Pressure 119/60 Pulse Oximetry 97 98 97 07/12/20 23:35 07/12/20 23:40 07/12/20 23:45 Temperature Pulse Rate 62 62 61 Respiratory Rate 18 18 18 Blood Pressure 118/59 L Pulse Oximetry 99 98 97 07/12/20 23:50 07/12/20 23:55 07/13/20 00:00 Temperature Pulse Rate 61 61 62 Respiratory Rate 18 18 18 Blood Pressure 119/58 L Pulse Oximetry 98 97 97 07/13/20 00:05 07/13/20 00:10 07/13/20 00:15 Temperature Pulse Rate 62 61 62 Respiratory Rate 18 18 18 Blood Pressure 120/59 L Pulse Oximetry 98 98 98 07/13/20 00:20 07/13/20 00:25 07/13/20 00:30 Temperature Pulse Rate 62 61 61 Respiratory Rate 18 18 18 Blood Pressure 120/61 Pulse Oximetry 98 98 99 07/13/20 00:35 07/13/20 00:40 07/13/20 00:45 Temperature Pulse Rate 62 62 63 Respiratory Rate 18 18 17 Blood Pressure 130/73 Pulse Oximetry 99 99 98 07/13/20 00:50 07/13/20 00:55 07/13/20 01:02 Temperature 96.3 F L Pulse Rate 64 65 Respiratory Rate 19 18 Blood Pressure Pulse Oximetry 99 98 Medical Decision Making Medical Records Medical records reviewed: Yes I reviewed the patient's medical records. Lab Data Lab results reviewed: Yes I reviewed the patient's lab results. Result diagrams: 07/12/20 18:15 07/12/20 18:15 Labs: Lab Results 07/12/20 07/12/20 07/12/20 Range/Units 18:15 18:15 18:15 WBC 13.8 H (4.5-11.0) X10^3/uL RBC 5.19 (4.5-5.9) X10^6/uL Hgb 15.1 (13.5-17.5) g/dL Hct 47.0 (41-53) % MCV 90.7 (80-100) fL MCH 29.2 (26-34) PG MCHC 32.2 (30-36) % RDW 14.4 (11.6-14.8) % Plt Count 373 (150-400) X10^3/uL Neut % (Auto) 51.3 (50-75) % Lymph % (Auto) 35.9 (25-40) % [place] % (Auto) 6.9 (3-14) % Eos % (Auto) 4.6 H (2-4) % Baso % (Auto) 1.3 (0-2) % Neut # (Auto) 7100 H (4841-8906) /uL Lymph # (Auto) 5000 H (7210-7556) /uL [place] # (Auto) 1000 H (0-900) /uL Eos # (Auto) 600 H (0-450) /uL Baso # (Auto) 200 H (0-100) /uL PT 11.9 (10.1-12.7) SECONDS INR 1.1 (0.9-1.3) ABG pH (7.35-7.45) ABG pCO2 (35-45) mmHg ABG pO2 (80-100) mmHg ABG HCO3 (22-26) mmol/L ABG Total CO2 (21-31) mmol/L ABG O2 Saturation (95-100) % ABG Base Excess (-2-2) mmol/L FiO2 Sodium 137 (137-145) mmol/L Potassium 3.5 (3.4-5.1) mmol/L Chloride 92 L (98-107) mmol/L Carbon Dioxide 32 (22-32) mmol/L BUN 9 (9-20) mg/dL Creatinine 1.27 H (0.66-1.25) mg/dL Estimated GFR 56.9 L (>60) mL/min BUN/Creatinine Ratio 7.1 (6-22) Glucose 217 H (80-110) mg/dL Lactate (0.7-2.1) mmol/L Calcium 8.8 (8.4-10.2) mg/dL Total Bilirubin 0.6 (0.2-1.3) mg/dL Conjugated Bilirubin 0.0 (0.0-0.3) md/dL Unconjugated Bilirubin 0.4 (0.0-1.1) mg/dL AST 49 (17-59) IU/L ALT 18 (<50) IU/L Alkaline Phosphatase 148 H (38-126) U/L Total Creatine Kinase 112 (55-170) U/L CK-MB (CK-2) 1.22 (<2.37) ng/mL CK-MB (CK-2) Rel Index 1.1 L (1.5-5.0) % Troponin I 0.013 (0.01-0.034) ng/mL NT-Pro-B Natriuret Pep (<125) pg/mL Total Protein 9.3 H (6.3-8.2) g/dL Albumin 4.9 (3.5-5.0) g/dL Globulin 4.4 H (1.7-4.1) g/dL Albumin/Globulin Ratio 1.1 (1.0-2.8) Lipase 739 H (23-300) U/L Urine Color Urine Appearance Urine pH (4.5-8.0) Ur Specific [place] (1.000-1.035) Urine Protein (Negative) Urine Glucose (UA) (Negative) g/dL Urine Ketones (NEGATIVE) Urine Occult Blood (Negative) Urine Nitrate (Negative) Urine Bilirubin (NEGATIVE) Urine Urobilinogen (0.2) E.U./dL Ur Leukocyte Esterase (NEGATIVE) Urine RBC (0-5/HPF) Urine WBC (0-5/HPF) Urine Bacteria (None) Ur Culture Indicated? Salicylates < 1.0 (<20) mg/dL U Opiates 300ng/mL cut (Negative) Ur Oxycodone Screen (Negative) Urine Methadone Screen (Negative) Acetaminophen < 10 L (10-30) ug/mL Ur Barbiturates Screen (Negative) U Tricyclic Antidepress (Negative) Ur Phencyclidine Scrn (Negative) Ur Amphetamines Screen (Negative) U Methamphetamines Scrn (Negative) Ur MDMA Scrn (Ecstasy) (Negative) U Benzodiazepines Scrn (Negative) Urine Cocaine Screen (Negative) U Marijuana (THC) Screen (Negative) Ethyl Alcohol 124 H ( - 10) mg/dL SARS-CoV-2 (PCR) (Negative) 07/12/20 07/12/20 07/12/20 Range/Units 18:48 18:50 18:50 WBC (4.5-11.0) X10^3/uL RBC (4.5-5.9) X10^6/uL Hgb (13.5-17.5) g/dL Hct (41-53) % MCV (80-100) fL MCH (26-34) PG MCHC (30-36) % RDW (11.6-14.8) % Plt Count (150-400) X10^3/uL Neut % (Auto) (50-75) % Lymph % (Auto) (25-40) % [place] % (Auto) (3-14) % Eos % (Auto) (2-4) % Baso % (Auto) (0-2) % Neut # (Auto) (8149-6863) /uL Lymph # (Auto) (8482-8720) /uL [place] # (Auto) (0-900) /uL Eos # (Auto) (0-450) /uL Baso # (Auto) (0-100) /uL PT (10.1-12.7) SECONDS INR (0.9-1.3) ABG pH 7.36 (7.35-7.45) ABG pCO2 47.4 H (35-45) mmHg ABG pO2 84 (80-100) mmHg ABG HCO3 27 H (22-26) mmol/L ABG Total CO2 28 (21-31) mmol/L ABG O2 Saturation 96 (95-100) % ABG Base Excess 1.0 (-2-2) mmol/L FiO2 21 Sodium (137-145) mmol/L Potassium (3.4-5.1) mmol/L Chloride (98-107) mmol/L Carbon Dioxide (22-32) mmol/L BUN (9-20) mg/dL Creatinine (0.66-1.25) mg/dL Estimated GFR (>60) mL/min BUN/Creatinine Ratio (6-22) Glucose (80-110) mg/dL Lactate (0.7-2.1) mmol/L Calcium (8.4-10.2) mg/dL Total Bilirubin (0.2-1.3) mg/dL Conjugated Bilirubin (0.0-0.3) md/dL Unconjugated Bilirubin (0.0-1.1) mg/dL AST (17-59) IU/L ALT (<50) IU/L Alkaline Phosphatase (38-126) U/L Total Creatine Kinase (55-170) U/L CK-MB (CK-2) (<2.37) ng/mL CK-MB (CK-2) Rel Index (1.5-5.0) % Troponin I (0.01-0.034) ng/mL NT-Pro-B Natriuret Pep (<125) pg/mL Total Protein (6.3-8.2) g/dL Albumin (3.5-5.0) g/dL Globulin (1.7-4.1) g/dL Albumin/Globulin Ratio (1.0-2.8) Lipase (23-300) U/L Urine Color Urine Appearance Urine pH (4.5-8.0) Ur Specific [place] (1.000-1.035) Urine Protein (Negative) Urine Glucose (UA) (Negative) g/dL Urine Ketones (NEGATIVE) Urine Occult Blood (Negative) Urine Nitrate (Negative) Urine Bilirubin (NEGATIVE) Urine Urobilinogen (0.2) E.U./dL Ur Leukocyte Esterase (NEGATIVE) Urine RBC (0-5/HPF) Urine WBC (0-5/HPF) Urine Bacteria (None) Ur Culture Indicated? Salicylates (<20) mg/dL U Opiates 300ng/mL cut (Negative) Ur Oxycodone Screen (Negative) Urine Methadone Screen (Negative) Acetaminophen (10-30) ug/mL Ur Barbiturates Screen (Negative) U Tricyclic Antidepress (Negative) Ur Phencyclidine Scrn (Negative) Ur Amphetamines Screen (Negative) U Methamphetamines Scrn (Negative) Ur MDMA Scrn (Ecstasy) (Negative) U Benzodiazepines Scrn (Negative) Urine Cocaine Screen (Negative) U Marijuana (THC) Screen (Negative) Ethyl Alcohol ( - 10) mg/dL SARS-CoV-2 (PCR) Negative Negative (Negative) 07/12/20 07/12/20 07/12/20 Range/Units 18:55 19:00 19:25 WBC (4.5-11.0) X10^3/uL RBC (4.5-5.9) X10^6/uL Hgb (13.5-17.5) g/dL Hct (41-53) % MCV (80-100) fL MCH (26-34) PG MCHC (30-36) % RDW (11.6-14.8) % Plt Count (150-400) X10^3/uL Neut % (Auto) (50-75) % Lymph % (Auto) (25-40) % [place] % (Auto) (3-14) % Eos % (Auto) (2-4) % Baso % (Auto) (0-2) % Neut # (Auto) (4104-4755) /uL Lymph # (Auto) (7984-4220) /uL [place] # (Auto) (0-900) /uL Eos # (Auto) (0-450) /uL Baso # (Auto) (0-100) /uL PT (10.1-12.7) SECONDS INR (0.9-1.3) ABG pH (7.35-7.45) ABG pCO2 (35-45) mmHg ABG pO2 (80-100) mmHg ABG HCO3 (22-26) mmol/L ABG Total CO2 (21-31) mmol/L ABG O2 Saturation (95-100) % ABG Base Excess (-2-2) mmol/L FiO2 Sodium (137-145) mmol/L Potassium (3.4-5.1) mmol/L Chloride (98-107) mmol/L Carbon Dioxide (22-32) mmol/L BUN (9-20) mg/dL Creatinine (0.66-1.25) mg/dL Estimated GFR (>60) mL/min BUN/Creatinine Ratio (6-22) Glucose (80-110) mg/dL Lactate 4.8 H* (0.7-2.1) mmol/L Calcium (8.4-10.2) mg/dL Total Bilirubin (0.2-1.3) mg/dL Conjugated Bilirubin (0.0-0.3) md/dL Unconjugated Bilirubin (0.0-1.1) mg/dL AST (17-59) IU/L ALT (<50) IU/L Alkaline Phosphatase (38-126) U/L Total Creatine Kinase (55-170) U/L CK-MB (CK-2) (<2.37) ng/mL CK-MB (CK-2) Rel Index (1.5-5.0) % Troponin I (0.01-0.034) ng/mL NT-Pro-B Natriuret Pep 704 H (<125) pg/mL Total Protein (6.3-8.2) g/dL Albumin (3.5-5.0) g/dL Globulin (1.7-4.1) g/dL Albumin/Globulin Ratio (1.0-2.8) Lipase (23-300) U/L Urine Color Urine Appearance Urine pH (4.5-8.0) Ur Specific [place] (1.000-1.035) Urine Protein (Negative) Urine Glucose (UA) (Negative) g/dL Urine Ketones (NEGATIVE) Urine Occult Blood (Negative) Urine Nitrate (Negative) Urine Bilirubin (NEGATIVE) Urine Urobilinogen (0.2) E.U./dL Ur Leukocyte Esterase (NEGATIVE) Urine RBC (0-5/HPF) Urine WBC (0-5/HPF) Urine Bacteria (None) Ur Culture Indicated? Salicylates (<20) mg/dL U Opiates 300ng/mL cut Negative (Negative) Ur Oxycodone Screen Negative (Negative) Urine Methadone Screen Negative (Negative) Acetaminophen (10-30) ug/mL Ur Barbiturates Screen Negative (Negative) U Tricyclic Antidepress Negative (Negative) Ur Phencyclidine Scrn Negative (Negative) Ur Amphetamines Screen Negative (Negative) U Methamphetamines Scrn Negative (Negative) Ur MDMA Scrn (Ecstasy) Negative (Negative) U Benzodiazepines Scrn Negative (Negative) Urine Cocaine Screen Negative (Negative) U Marijuana (THC) Screen Positive H (Negative) Ethyl Alcohol ( - 10) mg/dL SARS-CoV-2 (PCR) (Negative) 07/12/20 07/12/20 07/12/20 Range/Units 19:25 21:30 21:30 WBC (4.5-11.0) X10^3/uL RBC (4.5-5.9) X10^6/uL Hgb (13.5-17.5) g/dL Hct (41-53) % MCV (80-100) fL MCH (26-34) PG MCHC (30-36) % RDW (11.6-14.8) % Plt Count (150-400) X10^3/uL Neut % (Auto) (50-75) % Lymph % (Auto) (25-40) % [place] % (Auto) (3-14) % Eos % (Auto) (2-4) % Baso % (Auto) (0-2) % Neut # (Auto) (7517-2565) /uL Lymph # (Auto) (6742-9106) /uL [place] # (Auto) (0-900) /uL Eos # (Auto) (0-450) /uL Baso # (Auto) (0-100) /uL PT (10.1-12.7) SECONDS INR (0.9-1.3) ABG pH (7.35-7.45) ABG pCO2 (35-45) mmHg ABG pO2 (80-100) mmHg ABG HCO3 (22-26) mmol/L ABG Total CO2 (21-31) mmol/L ABG O2 Saturation (95-100) % ABG Base Excess (-2-2) mmol/L FiO2 Sodium (137-145) mmol/L Potassium (3.4-5.1) mmol/L Chloride (98-107) mmol/L Carbon Dioxide (22-32) mmol/L BUN (9-20) mg/dL Creatinine (0.66-1.25) mg/dL Estimated GFR (>60) mL/min BUN/Creatinine Ratio (6-22) Glucose (80-110) mg/dL Lactate 3.0 H (0.7-2.1) mmol/L Calcium (8.4-10.2) mg/dL Total Bilirubin (0.2-1.3) mg/dL Conjugated Bilirubin (0.0-0.3) md/dL Unconjugated Bilirubin (0.0-1.1) mg/dL AST (17-59) IU/L ALT (<50) IU/L Alkaline Phosphatase (38-126) U/L Total Creatine Kinase 93 (55-170) U/L CK-MB (CK-2) TNP (<2.37) ng/mL CK-MB (CK-2) Rel Index TNP (1.5-5.0) % Troponin I 0.043 H (0.01-0.034) ng/mL NT-Pro-B Natriuret Pep (<125) pg/mL Total Protein (6.3-8.2) g/dL Albumin (3.5-5.0) g/dL Globulin (1.7-4.1) g/dL Albumin/Globulin Ratio (1.0-2.8) Lipase (23-300) U/L Urine Color Yellow Urine Appearance Clear Urine pH 6.0 (4.5-8.0) Ur Specific [place] <=1.005 (1.000-1.035) Urine Protein Negative (Negative) Urine Glucose (UA) Negative (Negative) g/dL Urine Ketones Negative (NEGATIVE) Urine Occult Blood Trace-lysed (Negative) Urine Nitrate Negative (Negative) Urine Bilirubin Negative (NEGATIVE) Urine Urobilinogen 0.2 (0.2) E.U./dL Ur Leukocyte Esterase Negative (NEGATIVE) Urine RBC None seen (0-5/HPF) Urine WBC None seen (0-5/HPF) Urine Bacteria None seen (None) Ur Culture Indicated? Cult not indicated Salicylates (<20) mg/dL U Opiates 300ng/mL cut (Negative) Ur Oxycodone Screen (Negative) Urine Methadone Screen (Negative) Acetaminophen (10-30) ug/mL Ur Barbiturates Screen (Negative) U Tricyclic Antidepress (Negative) Ur Phencyclidine Scrn (Negative) Ur Amphetamines Screen (Negative) U Methamphetamines Scrn (Negative) Ur MDMA Scrn (Ecstasy) (Negative) U Benzodiazepines Scrn (Negative) Urine Cocaine Screen (Negative) U Marijuana (THC) Screen (Negative) Ethyl Alcohol ( - 10) mg/dL SARS-CoV-2 (PCR) (Negative) 07/12/20 Range/Units 22:12 WBC (4.5-11.0) X10^3/uL RBC (4.5-5.9) X10^6/uL Hgb (13.5-17.5) g/dL Hct (41-53) % MCV (80-100) fL MCH (26-34) PG MCHC (30-36) % RDW (11.6-14.8) % Plt Count (150-400) X10^3/uL Neut % (Auto) (50-75) % Lymph % (Auto) (25-40) % [place] % (Auto) (3-14) % Eos % (Auto) (2-4) % Baso % (Auto) (0-2) % Neut # (Auto) (8404-9523) /uL Lymph # (Auto) (0634-1821) /uL [place] # (Auto) (0-900) /uL Eos # (Auto) (0-450) /uL Baso # (Auto) (0-100) /uL PT (10.1-12.7) SECONDS INR (0.9-1.3) ABG pH 7.37 (7.35-7.45) ABG pCO2 48.2 H (35-45) mmHg ABG pO2 98 (80-100) mmHg ABG HCO3 28 H (22-26) mmol/L ABG Total CO2 29 (21-31) mmol/L ABG O2 Saturation 97 (95-100) % ABG Base Excess 3.0 H (-2-2) mmol/L FiO2 35 Sodium (137-145) mmol/L Potassium (3.4-5.1) mmol/L Chloride (98-107) mmol/L Carbon Dioxide (22-32) mmol/L BUN (9-20) mg/dL Creatinine (0.66-1.25) mg/dL Estimated GFR (>60) mL/min BUN/Creatinine Ratio (6-22) Glucose (80-110) mg/dL Lactate (0.7-2.1) mmol/L Calcium (8.4-10.2) mg/dL Total Bilirubin (0.2-1.3) mg/dL Conjugated Bilirubin (0.0-0.3) md/dL Unconjugated Bilirubin (0.0-1.1) mg/dL AST (17-59) IU/L ALT (<50) IU/L Alkaline Phosphatase (38-126) U/L Total Creatine Kinase (55-170) U/L CK-MB (CK-2) (<2.37) ng/mL CK-MB (CK-2) Rel Index (1.5-5.0) % Troponin I (0.01-0.034) ng/mL NT-Pro-B Natriuret Pep (<125) pg/mL Total Protein (6.3-8.2) g/dL Albumin (3.5-5.0) g/dL Globulin (1.7-4.1) g/dL Albumin/Globulin Ratio (1.0-2.8) Lipase (23-300) U/L Urine Color Urine Appearance Urine pH (4.5-8.0) Ur Specific [place] (1.000-1.035) Urine Protein (Negative) Urine Glucose (UA) (Negative) g/dL Urine Ketones (NEGATIVE) Urine Occult Blood (Negative) Urine Nitrate (Negative) Urine Bilirubin (NEGATIVE) Urine Urobilinogen (0.2) E.U./dL Ur Leukocyte Esterase (NEGATIVE) Urine RBC (0-5/HPF) Urine WBC (0-5/HPF) Urine Bacteria (None) Ur Culture Indicated? Salicylates (<20) mg/dL U Opiates 300ng/mL cut (Negative) Ur Oxycodone Screen (Negative) Urine Methadone Screen (Negative) Acetaminophen (10-30) ug/mL Ur Barbiturates Screen (Negative) U Tricyclic Antidepress (Negative) Ur Phencyclidine Scrn (Negative) Ur Amphetamines Screen (Negative) U Methamphetamines Scrn (Negative) Ur MDMA Scrn (Ecstasy) (Negative) U Benzodiazepines Scrn (Negative) Urine Cocaine Screen (Negative) U Marijuana (THC) Screen (Negative) Ethyl Alcohol ( - 10) mg/dL SARS-CoV-2 (PCR) (Negative) Point of Care Testing Glucose POC 194 Point of care testing: Point of Care Testing Glucose POC [address] scan - abdomen/pelvis: Radiologist's Impression: FINDINGS: Image quality: Excellent. ABDOMEN: Lung bases: Lung bases are clear. Heart size is normal. Solid organs: Liver is enlarged with steatosis. Gallbladder has been removed. Biliary system is non dilated. Pancreas enhances normally. Spleen is normal in size and enhancement. Unchanged minimal nodular appearance of the left adrenal gland. Kidneys demonstrate normal size and enhancement, without hydronephrosis. Peritoneum and bowel: Bowel loops demonstrate normal wall thickness and caliber. No free fluid or air. Nodes and vessels: No retroperitoneal or mesenteric adenopathy by size criteria. Aorta and inferior vena cava are normal in size. Miscellaneous: Ventral wall hernia mesh is noted. PELVIS: Genitourinary: Bladder is partially collapsed with a Cobb catheter. Nondependent air is present. Miscellaneous: No inguinal hernias or adenopathy. Bones: No suspicious bony lesions. No vertebral body compression fractures. IMPRESSION: 1. No acute abdominal or pelvic process. 2. Bladder is collapsed with a Cobb catheter. Nondependent air is present likely related to catheter insertion. However, under appropriate clinical circumstances, this can be seen with cystitis or fistula. Dictated by: Sabrina Sotelo M.D. on 07/12/2020 at 20:35 ECG Data Attestation: I personally reviewed and interpreted this ECG as follows: Interpretation: 1837 Sinus tachycardia at 1:[address] T wave changes with inverted T-waves inferiorly and laterally Normal axis, normal intervals 2240 Sinus rhythm at a rate of 66 Resolved T-wave abnormalities MDM Narrative Medical decision making narrative: 65-year-old gentleman presents essentially obtained did with no additional history. Minimal response to Narcan and Romazicon. Still has a significant gag reflexes evidence by trying to place a nasal trumpet. Initial blood gas is relatively reassuring with CO2 of 47 and his CO2 continues in that range. Pupils are 2-3 mm and sluggish. Initial workup does not show acute CT head findings. Chest x-ray looks like mild fluid overload with some fluid in the fissure on the right and mild cardiomegaly suggesting mild congestive heart failure, consistent with a bibasilar crackles appreciated but absence of JVD or lower extremity edema. Family does not believe there is illicit drug use urine toxicology is pending. Alcohol level is 124. Labs reveal as slight leukocytosis at 13.8. He is not febrile and there is no evidence of cellulitis or overt infection. Lactic acid is 4.8. On re-evaluation he does have some pain behaviors with abdomen palpation will go ahead and CT scan his belly to see if other findings are loose sedated. Will continue to watch respiratory status to make sure that he does not continue to progress to hypercarbia. At this point he is too somnolent for BiPAP. Without a fever or hypotension I am less concerned with sepsis however that certainly remains high in the differential and antibiotics will be started. Blood cultures and urine cultures have been obtained. 1145 progressive respiratory distress with increasing hypercapnia. Patient is intubated with minimal difficulty. Repeat lactic acid is coming down. Repeat troponin has increased slightly however repeat EKG has resolution of ST T wave changes At this time, I do not have a clear explanation for his course or presentation. Urine tox has marijuana only. Alcohol level is 125. Ammonia levels are not elevated. He does not have obvious intracranial hemorrhage nor obvious signs of clinical stroke. With initially elevated lactic acid antibiotics are initiated. COVID is negative. Abdominal CT scan does not suggest acute pathology. No obvious pancreatitis despite the slightly elevated lipase. Possibility of overdose remains however toxicology workup is consistently unremarkable. [facility] and he will be transferred. Uncertain etiology for altered mental status and progressive hypercapnic respiratory failure. Critical Care Time Critical Care Time Critical Care Time: Yes Total Critical Care Time: 33 Attestation: Critical care time is separate from other billable procedures. This critical care time includes consultation with family and other consulting doctors, review of records, and interpretation of data from labs, EKGs and imaging as well as managements of respiratory failure, Neurologic failure and significant diagnostic possibilities. Discharge Plan Departure Patient Disposition: [facility] Clinical Impression: Acute hypercapnic respiratory failure Altered mental status Qualifiers: Altered mental status type: somnolence Qualified Code(s): R40.0 - Somnolence Prescriptions: No Action carvedilol 25 mg Tablet 12.5 mg PO BID RF: 0 acetaminophen 500 mg Tablet 1,000 mg PO Q6H PRN (Reason: Pain (Scale Score 1-3)) RF: 0 losartan 50 mg tablet 50 mg PO DAILY RF: 0 Referrals: Shankar Huitron PA-C [Primary Care Provider] -
--- NOTE | 2020-07-12 18:55 | DI.RAD.S_ITS ---
PROCEDURE: XR CHEST 1V INDICATIONS: respiratory distress TECHNIQUE: One view of the chest was acquired. COMPARISON: [facility], CR, XR CHEST 1V, 06/12/2019, 15:46. FINDINGS: Surgical changes and devices: None. Lungs and pleura: Lungs are clear. No pleural effusions or pneumothorax. Mediastinum: Mediastinal contours appear normal. Heart size is mildly enlarged. Bones and chest wall: No suspicious bony lesions. Overlying soft tissues appear unremarkable. IMPRESSION: No acute pulmonary process. Dictated by: Sabrina Sotelo M.D. on 07/12/2020 at 19:14 Approved by: Sabrina Sotelo M.D. on 07/12/2020 at 19:14
[2020-07-12 18:59] LABS: Acetaminophen < 10 ug/mL (10-30); Alanine Aminotransferase 18 IU/L (<50); Albumin 4.9 g/dL (3.5-5.0); Albumin Globulin Ratio 1.1 (1.0-2.8); Alkaline Phosphatase 148 U/L (38-126); Aspartate Aminotransferase 49 IU/L (17-59); BUN Creatinine Ratio 7.1 (6-22); Bilirubin Total 0.6 mg/dL (0.2-1.3); Bilirubin Unconjugated 0.4 mg/dL (0.0-1.1); Blood Urea Nitrogen 9 mg/dL (9-20); Calcium 8.8 mg/dL (8.4-10.2); Carbon Dioxide 32 mmol/L (22-32); Chloride 92 mmol/L (98-107); Creatine Kinase 112 U/L (55-170); Estimated Glomerular Filt Rate 56.9 mL/min (>60); Ethanol (ETOH) 124 mg/dL; Globulin 4.4 g/dL (1.7-4.1); Glucose 217 mg/dL (80-110); Lipase 739 U/L (23-300); Potassium 3.5 mmol/L (3.4-5.1); Salicylate < 1.0 mg/dL (<20); Sodium 137 mmol/L (137-145); Total Protein 9.3 g/dL (6.3-8.2)
--- NOTE | 2020-07-12 19:03 | DI.CT.S_ITS ---
PROCEDURE: CT HEAD/BRAIN WO CON INDICATIONS: altered mental status, bruise over R brow, on plavix TECHNIQUE: Noncontrast 4.5 mm thick angled axial sections acquired from the foramen magnum to the vertex, with coronal and sagittal reformats. For radiation dose reduction, the following was used: automated exposure control, adjustment of mA and/or kV according to patient size. COMPARISON: [facility], CT, CT HEAD/BRAIN WO CON, 04/13/2019, 20:15. FINDINGS: Image quality: Excellent. CSF spaces: Basal cisterns are patent. No extra-axial fluid collections. Ventricles are normal in size and shape. Brain: No midline shift. No intracranial masses or hemorrhage. Chin-white matter interface is normal. Skull and face: Calvarium and visualized facial bones are intact, without suspicious lesions. There is edema of the right eyelid. Sinuses: Visualized sinuses and mastoids are clear. IMPRESSION: 1. No acute intracranial process. 2. Mild right eyelid edema. Dictated by: Sabrina Sotelo M.D. on 07/12/2020 at 19:33 Approved by: Sabrian Sotelo M.D. on 07/12/2020 at 19:34
[2020-07-12 19:08] LABS: Troponin I 0.013 ng/mL (0.01-0.034)
[2020-07-12 19:13] LABS: CKMB % Relative Index 1.1 % (1.5-5.0); Creatine Kinase MB 1.22 ng/mL (<2.37); HEMOLYSIS 49 (0-50)
[2020-07-12] MEDS: LIDOCAINE 2% (UROJET) 5 ML GEL (19:28)
--- NOTE | 2020-07-12 19:37 | PC.NURSE ---
Summary: Pt arrived to ED responsive only to deep pain. (received Narcan x 2 en route). Provider to bedside. Additional 1 mg of Narcan given w/ minimal effect. Romazicon admin w/ minimal effect. Pt w/ continued tachypnea and labored breathing. Noted pink, frothy sputum w/ suction of oropharanx. At this time pt is alert to loud voice and pain. Follows commands once he has eyes open. Noted bruising and swelling to right eye. No other s/s of trauma. Provider declined c spine immobilization at this time. Pt is moving all 4 extremities equally well. BS decreased w/ loud rhonchi throughout. Prolonged expiratory stage w/ CO2 high 40s to low 50s. Abd is rotund, soft. + bowel sounds throughout. Noted wound to top of right foot. + granulation tissue.
[2020-07-12 19:39] LABS: Bacteria Urine None Seen; RBC Urine None Seen (0-5/HPF); WBC Urine None Seen (0-5/HPF)
[2020-07-12 19:52] LABS: NT-proBNP (BNP-Adult 18+) 704 pg/mL (<125)
[2020-07-12 19:55] LABS: Fractionated Inspired Oxygen 21; HCO3 ABG 27 mmol/L (22-26); Oxygen Saturation ABG 96 % (95-100); PCO2 ABG 47.4 mmHg (35-45); PO2 ABG 84 mmHg (80-100); TCO2 ABG 28 mmol/L (21-31); pH ABG 7.36 (7.35-7.45)
[2020-07-12 19:58] LABS: Lactate (Lactic Acid) 4.8 mmol/L (0.7-2.1)
[2020-07-12 20:04] LABS: COVID19 -Nasal RAPID Negative (Negative)
--- NOTE | 2020-07-12 20:06 | DI.CT.S_ITS ---
PROCEDURE: CT ABDOMEN PELVIS W CON INDICATIONS: abd pain behavior, altered mental status TECHNIQUE: After the administration of intravenous contrast, 5 mm thick sections acquired from the diaphragm to the symphysis. 5 mm coronal and sagittal reformats were acquired. For radiation dose reduction, the following was used: automated exposure control, adjustment of mA and/or kV according to patient size. COMPARISON: [facility], CT, ABDOMEN/PELVIS WITH CONTRAST, 03/09/2011, 11:56. [facility], CT, CT ABDOMEN PELVIS WITH CONTRAST, 02/21/2018, 12:13. FINDINGS: Image quality: Excellent. ABDOMEN: Lung bases: Lung bases are clear. Heart size is normal. Solid organs: Liver is enlarged with steatosis. Gallbladder has been removed. Biliary system is non dilated. Pancreas enhances normally. Spleen is normal in size and enhancement. Unchanged minimal nodular appearance of the left adrenal gland. Kidneys demonstrate normal size and enhancement, without hydronephrosis. Peritoneum and bowel: Bowel loops demonstrate normal wall thickness and caliber. No free fluid or air. Nodes and vessels: No retroperitoneal or mesenteric adenopathy by size criteria. Aorta and inferior vena cava are normal in size. Miscellaneous: Ventral wall hernia mesh is noted. PELVIS: Genitourinary: Bladder is partially collapsed with a Cobb catheter. Nondependent air is present. Miscellaneous: No inguinal hernias or adenopathy. Bones: No suspicious bony lesions. No vertebral body compression fractures. IMPRESSION: 1. No acute abdominal or pelvic process. 2. Bladder is collapsed with a Cbob catheter. Nondependent air is present likely related to catheter insertion. However, under appropriate clinical circumstances, this can be seen with cystitis or fistula. Dictated by: Sabrina Sotelo M.D. on 07/12/2020 at 20:35 Approved by: Sabrina Sotelo M.D. on 07/12/2020 at 20:38
[2020-07-12 20:09] LABS: Appearance Urine UA CLEAR; Bilirubin Urine UA NEGATIVE (NEGATIVE); Color Urine UA YELLOW; Glucose Urine UA NEGATIVE (Negative); Ketones Urine UA NEGATIVE (NEGATIVE); Leukocyte Esterase Urine UA NEGATIVE (NEGATIVE); Nitrite Urine UA NEGATIVE (Negative); Occult Blood Urine UA TRACE-LYSED (Negative); Protein Urine UA NEGATIVE (Negative); Specific Gravity Urine UA <=1.005 (1.000-1.035); Urobilinogen Urine UA 0.2 E.U./dL (0.2)
[2020-07-12] MEDS: SODIUM CHLORIDE 0.9% 1,000 ML 1000 ML IV (20:14)
[2020-07-12 20:21] LABS: Culture Indicated Urine Cult Not Indicated
[2020-07-12 20:30] LABS: UR Morphine/Opiate cutoff 300 Negative (Negative); Ur Creatinine Normal (Normal); Ur Specific Gravity Normal (Normal); Urine Amphetamines Negative (Negative); Urine Barbiturates Negative (Negative); Urine Benzodiazepines Negative (Negative); Urine Cocaine Negative (Negative); Urine MDMA Negative (Negative); Urine Methadone Negative (Negative); Urine Methamphetamines Negative (Negative); Urine Oxycodone Negative (Negative); Urine Phencyclidine Negative (Negative); Urine Tetrahydrocannabinol Positive (Negative); Urine Tricyclic Antidepressant Negative (Negative); Urine pH Normal (Normal)
[2020-07-12] MEDS: PIPERACILLIN/TAZO 4.5 GM in SODIUM CHLORIDE 0.9% 100 ML 200 ML IV (20:42)
--- NOTE | 2020-07-12 20:54 | DI.RAD.S_ITS ---
PROCEDURE: XR CHEST 1V INDICATIONS: sp intubation; TECHNIQUE: One view of the chest was acquired. COMPARISON: [facility], CR, XR CHEST 1V, 07/12/2020, 19:05. FINDINGS: Surgical changes and devices: Endotracheal tube is present approximately 1.3 cm superior to the claudia. Lungs and pleura: Lungs are clear. No pleural effusions or pneumothorax. Mediastinum: Mediastinal contours appear normal. Heart size is markedly enlarged. Bones and chest wall: No suspicious bony lesions. Overlying soft tissues appear unremarkable. IMPRESSION: Endotracheal tube is above. Dictated by: Sabrina Sotelo M.D. on 07/12/2020 at 21:29 Approved by: Sabrina Sotelo M.D. on 07/12/2020 at 21:30
[2020-07-12 21:05] LABS: COVID19 - ADMIT (NP swab/PCR) Negative (Negative)
[2020-07-12] MEDS: ETOMIDATE 2 MG/ML 10 ML VIAL 40 MG IV (21:06)
[2020-07-12] MEDS: SUCCINYLCHOLINE 200 MG/10 ML VIAL 100 MG IV (21:06)
[2020-07-12] MEDS: propofoL 1,000 MG/100 ML VIAL 3.81 MG IV (21:07)
[2020-07-12] MEDS: SODIUM CHLORIDE 0.9% 1,000 ML 100 ML IV (21:09)
[2020-07-12] MEDS: fentaNYL 100 MCG/2 ML INJ 50 MCG IV ×3 (21:16→21:47)
[2020-07-12 21:24] LABS: Reflexed Lactate in 2 Hours Y
--- NOTE | 2020-07-12 21:33 | PC.NURSE ---
OG placed sp intubation w/o difficulty. + stomach contents noted w/ + air w/ auscultation over gastric area.
--- NOTE | 2020-07-12 21:42 | PC.NURSE ---
Pt intubated w/o difficulty 8.0 tube 27 @ lip, + C02, Negative sounds over epigastrum, + BS in all abreu. Highly agitated after intubation despite propofol/ fetanyl. Currently pt is maintained on propofol 60 mcg/kg/min w/ fentanyl prn.
[2020-07-12 22:01] LABS: Creatine Kinase 93 U/L (55-170)
[2020-07-12 22:14] LABS: Troponin I 0.043 ng/mL (0.01-0.034)
--- NOTE | 2020-07-12 22:41 | PC.NURSE ---
Pts sister at bedside; notified RN that pts SO overdosed on medications one week ago; may be unrelated but wanted to inform staff of this.
[2020-07-12 23:13] LABS: HCO3 ABG 28 mmol/L (22-26); Oxygen Saturation ABG 97 % (95-100); PCO2 ABG 48.2 mmHg (35-45); PO2 ABG 98 mmHg (80-100); TCO2 ABG 29 mmol/L (21-31); pH ABG 7.37 (7.35-7.45)
[2020-07-12 23:14] LABS: Fractionated Inspired Oxygen 35
[2020-07-13] VITALS (13 sets, daily range): BP systolic 119–130; BP diastolic 58–73; PULSE 61–65; RESP 17–19; TEMP 35.7; O2SAT 97–99
--- NOTE | 2020-07-13 00:40 | PC.NURSE ---
Pts sister is his DPOA; she was updated regarding his transfer and RN clarified the visiting hours with Bill ROGERS.
[2020-07-13] MEDS: fentaNYL 100 MCG/2 ML INJ 50 MCG IV (01:12)
[2020-07-13] MEDS: propofoL 1,000 MG/100 ML VIAL 34.292 MG IV ×2 (01:14)
== END 2020-07-13 01:26 | disposition short-term general hospital (02) ==
PROVIDERS: Emergency Provider Emergency Medicine; Family Provider Family Medicine; PCP Physician Assistant
DX: J96.02 Acute respiratory failure with hypercapnia (principal); R40.0 Somnolence; F10.129 Alcohol abuse with intoxication, unspecified; F12.90 Cannabis use, unspecified, uncomplicated; Y90.6 Blood alcohol level of 120-199 mg/100 ml; D72.829 Elevated white blood cell count, unspecified; Z20.822 Contact with and (suspected) exposure to COVID-19
CPT/HCPCS: 31500; 36415; 36600; 51701; 70450; 71045; 74177; 80053; 80076; 80305; 80320; 80329; 81001; 82550; 82553; 82805; 82962; 83605; 83690; 83880; 84484; 85025; 85610; 87040; 87635; 93005; 94799; 96361; 96365; 96375; 96376; 99284; 99291; C9803; G0480; J0330; J2310; J2543; J2704; J3010; Q9967

== ENCOUNTER 2021-06-19 19:31 | Emergency (ER) | payer MEDICARE, MEDICAID, OTHER, SELFPAY ==
[2020-07-12 22:20] VITALS: PULSE 63; RESP 18; O2SAT 96
[2021-06-19] VITALS (9 sets, daily range): BP systolic 170–201; BP diastolic 92–104; PULSE 82–88; RESP 14–21; TEMP 36.4; O2SAT 98–100; BMI 34.4
--- NOTE | 2021-06-19 19:38 | DI.CT.S_ITS ---
PROCEDURE: CT CERVICAL SPINE WO CON INDICATIONS: pain fall TECHNIQUE: Noncontrast 3 mm thick sections acquired from the skull base to the T4 level. Sagittal and coronal reformats were then constructed. For radiation dose reduction, the following was used: automated exposure control, adjustment of mA and/or kV according to patient size. COMPARISON: [facility], CT, CT CERVICAL SPINE WITHOUT CONTRAST, 02/24/2020, 14:45. FINDINGS: Image quality: Excellent. Bones: No fractures or dislocations. C5-C7 is fused. [id number] degenerative disc disease at C2-C3, C3-C4 and C4-C5. Large anterior osteophyte at C4-C5. Bilateral facet arthropathy, severe at C2-C3 on the right, C3-C4 and C4-C5 on the left. Visualized superior ribs are intact. Soft tissues: Prevertebral soft tissues are normal in thickness. No paravertebral hematomas. No apical pneumothoraces. IMPRESSION: 1. No fracture in cervical spine. 2. Degenerative changes as described. Dictated by: Chantel Munson M.D. on 06/19/2021 at 20:02 Approved by: Chantel Munson M.D. on 06/19/2021 at 20:06
--- NOTE | 2021-06-19 19:38 | DI.CT.S_ITS ---
PROCEDURE: CT HEAD/BRAIN WO CON INDICATIONS: fall with left arm weakness TECHNIQUE: Noncontrast 4.5 mm thick angled axial sections acquired from the foramen magnum to the vertex, with coronal and sagittal reformats. For radiation dose reduction, the following was used: automated exposure control, adjustment of mA and/or kV according to patient size. COMPARISON: [facility], CT, CT HEAD WITHOUT CONTRAST, 08/12/2018, 12:42. [facility], CT, CT HEAD WITHOUT CONTRAST, 11/18/2018, 12:31. [facility], CT, CT HEAD/BRAIN WO CON, 04/13/2019, 20:15. [facility], CT, CT HEAD/BRAIN WO CON, 07/12/2020, 19:12. FINDINGS: Image quality: Excellent. CSF spaces: Basal cisterns are patent. No extra-axial fluid collections. The ventricles are symmetric in size and shape. Brain: No intracranial bleeds or masses. There is cerebral volume loss for age, with resultant ventricular and sulcal prominence. There are periventricular and deep white matter chronic small vessel ischemic changes. There is intracranial internal carotid artery atherosclerosis. Skull and face: Calvarium and visualized facial bones appear intact, without suspicious lesions. Sinuses: Visualized sinuses and mastoids are clear. There is a right parietal scalp lesion, unchanged, most likely a scar. IMPRESSION: 1. No acute intracranial abnormalities. 2. Cerebral volume loss and chronic microvascular ischemic changes. Dictated by: Chantel Munson M.D. on 06/19/2021 at 20:07 Approved by: Chantel Munson M.D. on 06/19/2021 at 20:12
--- NOTE | 2021-06-19 20:26 | ED_ITS ---
HPI - Fall General Chief Complaint: Fall Stated Complaint: Fall Time Seen by Provider: 06/19/21 19:38 Source: patient and EMS Mode of arrival: EMS History of Present Illness HPI Narrative: Patient is a 66-year-old male with history of CVA and left-sided deficits, coronary artery disease, congestive heart failure presenting today after mec hanical fall. He said he was waiting for to turn off of clamp but then fell backwards in the chair hitting his head. Not sure if he lost consciousness. He was the 1 who initiated 911 with his phone. He has not had any nausea or vomiting. However he reports that he is having increasing left sided weakness worse than normal. He has pain in his neck. No other chest pain dizziness palpitations further symptoms at this time Related Data Home Medications Medication Instructions Recorded Confirmed acetaminophen 500 mg tablet 1,000 mg PO Q6H PRN 11/21/18 07/12/20 carvedilol 25 mg tablet 12.5 mg PO BID 11/21/18 07/12/20 losartan 50 mg tablet 50 mg PO DAILY 07/12/20 07/12/20 Previous Rx's Medication Instructions Recorded cyclobenzaprine 5 mg tablet 5 mg PO TID PRN #10 tab 06/20/21 hydrocodone 5 mg-acetaminophen 325 1 tab PO Q6H PRN #10 tab 06/20/21 mg tablet Allergies Allergy/AdvReac Type Severity Reaction Status Date / Time NSAIDS (Non-Steroidal Allergy Severe Swelling Verified 07/12/20 19:31 Anti-Inflamma of Lip/Tongue/Throat chocolate flavor Allergy Intermediate Swelling Verified 07/12/20 19:31 of Lip/Tongue/Throat peanut Allergy Intermediate Swelling Verified 07/12/20 19:31 of Lip/Tongue/Throat strawberry Allergy Intermediate Swelling Verified 07/12/20 19:31 of Lip/Tongue/Throat celecoxib [From CELEBREX] Allergy Unknown Verified 07/12/20 19:31 lisinopril [LISINOPRIL] Allergy Unknown Verified 07/12/20 19:31 meloxicam [MELOXICAM] Allergy Unknown ANAPHYLAXSI Verified 07/12/20 19:31 S Penicillins [PENICILLINS] Allergy Unknown Verified 07/12/20 19:31 avocado AdvReac Intermediate Swelling Verified 07/12/20 19:31 of Lip/Tongue/Throat peas AdvReac Intermediate Swelling Verified 07/12/20 19:31 of Lip/Tongue/Throat sulfite AdvReac Intermediate Migraine Verified 07/12/20 19:31 Review of Systems Review of Systems Narrative: GENERAL: Denies chills, fatigue, malaise, fever, sweats, travel HEENT: Denies sinus pain, ear pain, sore throat, difficulty swallowing, neck pain RESPIRATORY: Denies dyspnea, cough, wheezing, hemoptysis, sputum. CARDIOVASCULAR: Denies chest pain, palpitations, orthopnea, edema GASTROINTESTINAL: Denies nausea, vomiting, abdominal pain, diarrhea, constipation, melena. : Denies dysuria, frequency, incontinence, hematuria, urinary retention, flank pain. MUSCULOSKELETAL: See HPI SKIN: No rash, no erythema, no pruritus NEUROLOGIC: See HPI PSYCHIATRIC: No concerning psychosocial issues. 12 point review of systems is negative except for those stated above and HPI Patient History Medical History Coronary artery disease Hypertension Left hemiparesis Right rib fracture Stroke Surgical History History of cholecystectomy History of laparotomy History of shoulder surgery History of surgery on wrist Hx of fusion of cervical spine Family History Father Parkinsons Mother Cancer Brother Cancer Sister No significant medical problems Social History household members: spouse Smoking Status: Never smoker alcohol intake: never substance use type: does not use Smoking Status: Never smoker alcohol intake frequency: holidays/special occasions only Substance Use Type: marijuana Exam Initial Vital Signs Initial Vital Signs: Vital Signs Temperature 97.6 F 06/19/21 19:44 Pulse Rate 87 06/19/21 19:44 Respiratory Rate 17 06/19/21 19:44 Blood Pressure 193/104 H 06/19/21 19:44 Pulse Oximetry 100 06/19/21 19:44 GENERAL: Alert 66-year-old male no acute distress HEENT: Head atraumatic,EOMI, pupils reactive, face symmetric, [moist] mucous membranes NECK: Painful paraspinal muscle CARDIOVASCULAR: Regular rate and rhythm without murmurs, rubs or gallops. RESPIRATORY: Breath sounds equal bilaterally, no wheezes rales or rhonchi. ABDOMEN: Soft, nontender. Normoactive bowel sounds all 4 quadrants. No guarding or rebound. EXTREMITIES: Normal range of motion, no clubbing or edema. Neurovascularly intact NEUROLOGICAL: Alert and oriented x4. Left arm weakness unable to left arm above gravity however able to squeeze hands noted to be weaker on the left. Unable to lift either leg due to pain in his SKIN: Warm, dry, no laceration, no petechiae, no rashes or lesions. Course Orders Ordered: ED Orders 06/19/21 19:38 CT cervical spine wo con Stat CT head/brain wo con Stat 06/19/21 20:38 CT angio head and neck Stat 06/19/21 21:00 Complete Blood Count AUTO DIFF Stat Comprehensive Metabolic Panel Stat Lipase Stat Troponin & CK Cardiac Panel Stat 06/19/21 21:07 EKG-12 Lead Stat Discontinued Medications Hydrocodone Bitart/Acetaminophen (Hydrocodone/Acet 5/325 Prepack) 1 bottle [facility] [place] Stop: 06/20/21 00:20 Last Admin: 06/20/21 00:29 Dose: 1 bottle Documented by: DANIELLE Carvedilol (Carvedilol 12.5 Mg Tablet) 12.5 mg PO NOW ONE Stop: 06/19/21 23:43 Last Admin: 06/19/21 23:51 Dose: 12.5 mg Documented by: DANIELLE Cyclobenzaprine HCl (Cyclobenzaprine 10 Mg Prepack) 1 bottle [facility] [facility] [place] Stop: 06/20/21 00:20 Last Admin: 06/20/21 00:28 Dose: 1 bottle Documented by: DANIELLE Hydromorphone HCl (Hydromorphone 1 Mg Inj) 1 mg IV NOW ONE Stop: 06/19/21 23:43 Last Admin: 06/19/21 23:47 Dose: 1 mg Documented by: DANIELLE Sodium Chloride (Normal Saline 0.9%) 1,000 mls @ 150 mls/hr IV CONT CHRISTIANE Last Admin: 06/19/21 21:07 Dose: 150 mls/hr Documented by: DANIELLE Losartan Potassium (Losartan 50 Mg Tablet) 50 mg PO NOW ONE Stop: 06/19/21 23:43 Last Admin: 06/19/21 23:51 Dose: 50 mg Documented by: DANIELLE Morphine Sulfate (Morphine 2 Mg/Ml Inj) 2 mg IV NOW ONE Stop: 06/19/21 20:39 Last Admin: 06/19/21 21:06 Dose: 2 mg Documented by: DANIELLE Potassium Chloride (Potassium Chloride 20 Meq Tab) 40 meq PO NOW ONE Stop: 06/19/21 21:45 Last Admin: 06/19/21 22:08 Dose: 40 meq Documented by: DANIELLE Vital Signs Vital signs: Vital Signs - 8 hr 06/19/21 21:10 06/19/21 21:30 06/19/21 22:04 Pulse Rate 82 82 85 Respiratory Rate 17 14 14 Blood Pressure 193/93 H 201/92 H Pulse Oximetry 99 98 100 06/19/21 22:30 06/19/21 23:00 06/19/21 23:34 Pulse Rate 85 88 88 Respiratory Rate 16 21 Blood Pressure Pulse Oximetry 99 99 99 06/19/21 23:49 06/19/21 23:50 06/20/21 00:00 Pulse Rate 84 85 Respiratory Rate Blood Pressure 170/95 H 170/95 H 165/90 H Pulse Oximetry 99 98 MDM - Fall Lab Data Result diagrams: 06/19/21 21:00 06/19/21 21:00 Labs: Lab Results 06/19/21 06/19/21 Range/Units 21:00 21:00 WBC 8.2 (4.5-11.0) X10^3/uL RBC 4.95 (4.5-5.9) X10^6/uL Hgb 14.2 (13.5-17.5) g/dL Hct 40.7 L (41-53) % MCV 82.4 (80-100) fL MCH 28.8 (26-34) PG MCHC 34.9 (30-36) % RDW 14.8 (11.6-14.8) % Plt Count 334 (150-400) X10^3/uL Neut % (Auto) 73.7 (50-75) % Lymph % (Auto) 14.7 L (25-40) % Wilkin % (Auto) 3.7 (3-14) % Eos % (Auto) 6.4 H (2-4) % Baso % (Auto) 1.5 (0-2) % Neut # (Auto) 6000 (6138-2351) /uL Lymph # (Auto) 1200 (0585-8908) /uL Wilkin # (Auto) 300 (0-900) /uL Eos # (Auto) 500 H (0-450) /uL Baso # (Auto) 100 (0-100) /uL Sodium 136 L (137-145) mmol/L Potassium 2.7 L* (3.4-5.1) mmol/L Chloride 103 (98-107) mmol/L Carbon Dioxide 26 (22-32) mmol/L BUN 15 (9-20) mg/dL Creatinine 1.02 (0.66-1.25) mg/dL Estimated GFR > 60.0 (>60) mL/min BUN/Creatinine Ratio 14.7 (6-22) Glucose 98 (80-110) mg/dL Calcium 9.2 (8.4-10.2) mg/dL Total Bilirubin 0.5 (0.2-1.3) mg/dL AST 34 (17-59) IU/L ALT 16 (<50) IU/L Alkaline Phosphatase 108 (38-126) U/L Total Creatine Kinase 100 (55-170) U/L CK-MB (CK-2) TNP CK-MB (CK-2) Rel Index TNP Troponin I < 0.012 (0.01-0.034) ng/mL Total Protein 8.1 (6.3-8.2) g/dL Albumin 4.3 (3.5-5.0) g/dL Globulin 3.8 (1.7-4.1) g/dL Albumin/Globulin Ratio 1.1 (1.0-2.8) Lipase 473 H (23-300) U/L Imaging Data CT scan - head: Radiologist's Impression: PROCEDURE:? CT HEAD/BRAIN WO CON ? INDICATIONS:? fall with left arm weakness ? TECHNIQUE:? Noncontrast 4.5 mm thick angled axial sections acquired from the foramen magnum to the vertex, with coronal and sagittal reformats.? For radiation dose reduction, the following was used:? automated exposure control, adjustment of mA and/or kV according to patient size.? ? COMPARISON:? [facility], CT, CT HEAD WITHOUT CONTRAST, 08/12/2018, 12:42.? [facility], CT, CT HEAD WITHOUT CONTRAST, 11/18/2018, 12:31.? [facility], CT, CT HEAD/BRAIN WO CON, 04/13/2019, 20:15.? [facility], CT, CT HEAD/BRAIN WO CON, 07/12/2020, 19:12. ? FINDINGS:? Image quality:? Excellent.? ? CSF spaces:? Basal cisterns are patent.? No extra-axial fluid collections.? The ventricles are symmetric in size and shape.? ? Brain:? No intracranial bleeds or masses.? There is cerebral volume loss for age, with resultant ventricular and sulcal prominence.? There are periventricular and deep white matter chronic small vessel ischemic changes.? There is intracranial internal carotid artery atherosclerosis.? ? Skull and face:? Calvarium and visualized facial bones appear intact, without suspicious lesions.? ? Sinuses:? Visualized sinuses and mastoids are clear.? There is a right parietal scalp lesion, unchanged, most likely a scar. ? IMPRESSION:? ? 1. No acute intracranial abnormalities. 2. Cerebral volume loss and chronic microvascular ischemic changes. ? ? ? Dictated by: Cahntel Munson M.D. on 06/19/2021 at 20:07 ? CT - cervical spine: Radiologist's Impression: PROCEDURE:? CT CERVICAL SPINE WO CON ? INDICATIONS:? pain fall ? TECHNIQUE:? Noncontrast 3 mm thick sections acquired from the skull base to the T4 level.? Sagittal and coronal reformats were then constructed.? For radiation dose reduction, the following was used:? automated exposure control, adjustment of mA and/or kV according to patient size.? ? COMPARISON:? [facility], CT, CT CERVICAL SPINE WITHOUT CONTRAST, 02/24/2020, 14:45. ? FINDINGS:? Image quality:? Excellent.? ? Bones:? No fractures or dislocations.? C5-C7 is fused.? Ajff-ts-znrqmhlu degenerative disc disease at C2-C3, C3-C4 and C4-C5.? Large anterior osteophyte at C4-C5.? Bilateral facet arthropathy, severe at C2-C3 on the right, C3-C4 and C4-C5 on the left.? Visualized superior ribs are intact.? ? Soft tissues:? Prevertebral soft tissues are normal in thickness.? No paravertebral hematomas.? No apical pneumothoraces.? ? ? IMPRESSION:? ? 1. No fracture in cervical spine. 2. Degenerative changes as described.? ? ? Dictated by: Chantel Munson M.D. on 06/19/2021 at 20:02 ? ? CTA - brain/neck: Radiologist's Impression: PROCEDURE:? CT ANGIO HEAD AND NECK ? INDICATIONS:? increased left sided weakness, prior stroke with left weakne ? TECHNIQUE:? After the administration of intravenous contrast, 1 mm thick sections acquired from the aortic arch through the [place] of [place].? Post-contrast 4.5 mm thick sections then re-acquired from the foramen magnum to the vertex.? 3-dimensional otxdpst-kjtqtnvlo-ogejnvnfrf (MIP) and/or volume rendering reformats were acquired of the central intracranial vasculature and neck separately. ? COMPARISON:? [facility], CT, CT CERVICAL SPINE WO CON, 06/19/2021, 19:43.? [facility], MR, MR BRAIN WITHOUT CONTRAST, 07/14/2020, 7:50.? [facility], CT, CT HEAD/BRAIN WO CON, 06/19/2021, 19:43. ? FINDINGS:? Image quality:? Excellent.? ? BRAIN:? CSF spaces:? Ventricles are normal in size and shape.? Basal cisterns are patent.? No extra-axial fluid collections.? ? Brain:? No midline shift.? No intracranial bleeds or masses.? Chin-white matter interface appears intact.? ? Skull and face:? Calvarium and facial bones appear intact, without suspicious lesions.? Orbits appear normal.? ? Sinuses:? Sinuses and mastoids are clear.? ? HEAD CT ANGIOGRAPHY:? Anterior circulation:? Intracranial internal carotid arteries are normal in size and flow.? The flow within the paired anterior cerebral arteries is normal and symmetric.? The flow within the middle cerebral arteries is normal and symmetric.? The anterior communicating artery is seen.? No aneurysms are seen.? ? Posterior circulation:? Visualized portions of the vertebral arteries demonstrate normal caliber, and join to form a normal appearing basilar artery.? Flow within the posterior cerebral arteries is normal and symmetric.? No aneurysms are seen.? ? NECK CT ANGIOGRAPHY:? Carotid system:? The great vessels demonstrate a conventional anatomy as they arise from the aortic arch.? The origins of the common carotid arteries appear patent.? The common carotid arteries demonstrate normal caliber and courses.? The bifurcation regions are both widely patent.? The internal carotid arteries demonstrate normal calibers and courses.? ? Posterior circulation:? The origins of the vertebral arteries both appear widely patent.? The more superior extracranial portions of both vertebral arteries also demonstrate normal courses and calibers.? They join to form a normal appearing basilar artery.? ? Soft tissues:? Visualized neck soft tissues demonstrate no suspicious abnormalities.? ? Bones:? No suspicious bony lesions.? There is fusion of C5-C7.? Degenerative disc and facet disease in cervical spine.? Visualized cervical spine appears normally aligned.? ? ? IMPRESSION:? ? 1. No acute intracranial abnormalities. 2. No hemodynamic significant stenosis in anterior or posterior circulations. 3. No hemodynamic significant stenosis in cervical carotid arteries or vertebral arteries bilaterally. ? ? Any quantitative measurements of stenosis were performed using NASCET criteria.? ? ? Dictated by: Chantel Munson M.D. on 06/19/2021 at 22:36 ? ? ECG Data Prior ECG tracings: available for review Interpretation: Normal sinus rhythm rate 83 AL interval 166 QRS [address] changes no T- wave inversions similar to previous MDM Narrative Medical decision making narrative: Patient had a mechanical fall he was reaching to turn off a light when he fell backwards hitting his head. No loss of consciousness. Head CT and cervical spine CT are negative. He is having some left-sided weakness which he reports is worse than normal. He is also noted to be hypertensive in the emergency department. He is given his likely medication along with pain medication. CT angio was also negative. Symptoms are unlikely related to acute stroke. Pain is better after the Dilaudid. He is given pain medication and Flexeril which she reports has worked for him in the past. Recommend supportive care at this time. Discharge Plan Departure Patient Disposition: Home Clinical Impression: Cervical muscle strain, Hypertension Instructions: Whiplash, Essential Hypertension Activity Restrictions/Additional Instructions: *You have been diagnosed with hypertension and cervical strain *What to do: At this time he did not break anything. Weakness in left arm is thought to be from a previous stroke there is no new stroke identified. Please control your blood pressure by taking medication. *Continue to take medications as directed Norton 1 tablet every 6 hours if needed for severe pain Flexeril 1 tablet every is 8 hours if needed for muscle relaxer *Follow up with your primary care provider in 2-3 days or call [phone] *Return to ER if you should have increasing weakness, increasing pain, numbness tingling or any new, worsening or concerning symptoms CONTROLLED SUBSTANCE DISCHARGE (Narcotoic/benzodiazepine/Flexeril/Phenergan) 1. You have been prescribed narcotic medications, it does have acetaminophe n/Tylenol/paracetamol in it, DO NOT TAKE MORE THAN 4,00mg in 24 hours of Tylenol. TRAMADOL DOES NOT CONTAIN TYLENOL 2. Please understand that we cannot provide further refills of narcotics, benzodiazepines or controlled substances through the ED and her pain management will need to be through your provider. 3. While on these medications you cannot drive or operate heavy machinery. 4. You cannot sign legal documents or perform any duties such as this. 5. As long as you're taking opiate pain medications he should also be taking a stool softener such as Colace, Dulcolax, MiraLAX or prune juice, to help avoid constipation. Prescriptions: New hydrocodone-acetaminophen 5-325 mg tablet 1 tab PO Q6H PRN (Reason: pain) Qty: 10 0RF cyclobenzaprine 5 mg tablet 5 mg PO TID PRN (Reason: muscle spasm) Qty: 10 0RF No Action carvedilol 25 mg Tablet 12.5 mg PO BID 0RF acetaminophen 500 mg Tablet 1,000 mg PO Q6H PRN (Reason: Pain (Scale Score 1-3)) 0RF losartan 50 mg tablet 50 mg PO DAILY 0RF Referrals: Shankar Huitron PA-C [Primary Care Provider] -
--- NOTE | 2021-06-19 20:38 | DI.CT.S_ITS ---
PROCEDURE: CT ANGIO HEAD AND NECK INDICATIONS: increased left sided weakness, prior stroke with left weakne TECHNIQUE: After the administration of intravenous contrast, 1 mm thick sections acquired from the aortic arch through the [place] of [place]. Post-contrast 4.5 mm thick sections then re-acquired from the foramen magnum to the vertex. 3-dimensional kslfzch-vtnvfpxzs-pbhmpvuvlq (MIP) and/or volume rendering reformats were acquired of the central intracranial vasculature and neck separately. COMPARISON: [facility], CT, CT CERVICAL SPINE WO CON, 06/19/2021, 19:43. [facility], MR, MR BRAIN WITHOUT CONTRAST, 07/14/2020, 7:50. [facility], CT, CT HEAD/BRAIN WO CON, 06/19/2021, 19:43. FINDINGS: Image quality: Excellent. BRAIN: CSF spaces: Ventricles are normal in size and shape. Basal cisterns are patent. No extra-axial fluid collections. Brain: No midline shift. No intracranial bleeds or masses. Chin-white matter interface appears intact. Skull and face: Calvarium and facial bones appear intact, without suspicious lesions. Orbits appear normal. Sinuses: Sinuses and mastoids are clear. HEAD CT ANGIOGRAPHY: Anterior circulation: Intracranial internal carotid arteries are normal in size and flow. The flow within the paired anterior cerebral arteries is normal and symmetric. The flow within the middle cerebral arteries is normal and symmetric. The anterior communicating artery is seen. No aneurysms are seen. Posterior circulation: Visualized portions of the vertebral arteries demonstrate normal caliber, and join to form a normal appearing basilar artery. Flow within the posterior cerebral arteries is normal and symmetric. No aneurysms are seen. NECK CT ANGIOGRAPHY: Carotid system: The great vessels demonstrate a conventional anatomy as they arise from the aortic arch. The origins of the common carotid arteries appear patent. The common carotid arteries demonstrate normal caliber and courses. The bifurcation regions are both widely patent. The internal carotid arteries demonstrate normal calibers and courses. Posterior circulation: The origins of the vertebral arteries both appear widely patent. The more superior extracranial portions of both vertebral arteries also demonstrate normal courses and calibers. They join to form a normal appearing basilar artery. Soft tissues: Visualized neck soft tissues demonstrate no suspicious abnormalities. Bones: No suspicious bony lesions. There is fusion of C5-C7. Degenerative disc and facet disease in cervical spine. Visualized cervical spine appears normally aligned. IMPRESSION: 1. No acute intracranial abnormalities. 2. No hemodynamic significant stenosis in anterior or posterior circulations. 3. No hemodynamic significant stenosis in cervical carotid arteries or vertebral arteries bilaterally. Any quantitative measurements of stenosis were performed using NASCET criteria. Dictated by: Chantel Munson M.D. on 06/19/2021 at 22:36 Approved by: Chantel Munson M.D. on 06/19/2021 at 22:44
[2021-06-19] MEDS: MORPHINE 2 MG/ML INJ IV (21:06)
[2021-06-19] MEDS: SODIUM CHLORIDE 0.9% 1,000 ML 150 ML IV (21:07)
[2021-06-19 21:16] LABS: Add Manual Diff / Slide Review NO; Basophils Absolute Auto 100 /uL (0-100); Basophils Percent Auto 1.5 % (0-2); Eosinophils Absolute Auto 500 /uL (0-450); Eosinophils Percent Auto 6.4 % (2-4); Hematocrit 40.7 % (41-53); Hemoglobin 14.2 g/dL (13.5-17.5); Lymphocytes Absolute Auto 1200 /uL (1100-4500); Lymphocytes Percent Auto 14.7 % (25-40); Mean Corpuscular HGB Conc 34.9 % (30-36); Mean Corpuscular Hemoglobin 28.8 PG (26-34); Mean Corpuscular Volume 82.4 fL (80-100); Monocytes Absolute Auto 300 /uL (0-900); Monocytes Percent Auto 3.7 % (3-14); Neutrophils Absolute Auto 6000 /uL (1500-7000); Neutrophils Percent Auto 73.7 % (50-75); Platelet Count 334 X10^3/uL (150-400); Red Blood Cell Count 4.95 X10^6/uL (4.5-5.9); Red Cell Distribution Width 14.8 % (11.6-14.8); White Blood Cell Count 8.2 X10^3/uL (4.5-11.0)
[2021-06-19 21:34] LABS: Alanine Aminotransferase 16 IU/L (<50); Albumin 4.3 g/dL (3.5-5.0); Albumin Globulin Ratio 1.1 (1.0-2.8); Alkaline Phosphatase 108 U/L (38-126); Aspartate Aminotransferase 34 IU/L (17-59); BUN Creatinine Ratio 14.7 (6-22); Bilirubin Total 0.5 mg/dL (0.2-1.3); Blood Urea Nitrogen 15 mg/dL (9-20); Calcium 9.2 mg/dL (8.4-10.2); Carbon Dioxide 26 mmol/L (22-32); Chloride 103 mmol/L (98-107); Creatine Kinase 100 U/L (55-170); Estimated Glomerular Filt Rate > 60.0 mL/min (>60); Globulin 3.8 g/dL (1.7-4.1); Glucose 98 mg/dL (80-110); HEMOLYSIS < 15 (0-50); Lipase 473 U/L (23-300); Sodium 136 mmol/L (137-145); Total Protein 8.1 g/dL (6.3-8.2)
[2021-06-19 21:41] LABS: Potassium 2.7 mmol/L (3.4-5.1)
[2021-06-19 21:46] LABS: Troponin I < 0.012 ng/mL (0.01-0.034)
[2021-06-19] MEDS: POTASSIUM CHLORIDE 20 MEQ TAB 40 MEQ PO (22:08)
--- NOTE | 2021-06-19 22:30 | PC.NURSE ---
pt ambulated in hallway per Ramos HERMOSILLO at side
[2021-06-19] MEDS: HYDROMORPHONE 1 MG INJ IV (23:47)
[2021-06-19] MEDS: LOSARTAN 50 MG TABLET PO (23:51)
[2021-06-19] MEDS: carvediloL 12.5 MG TABLET PO (23:51)
[2021-06-20] VITALS: BP 165/90; PULSE 85; O2SAT 98
[2021-06-20] MEDS: CYCLOBENZAPRINE 10 MG PREPACK 1 BOTTLE MISC (00:28)
[2021-06-20] MEDS: HYDROCODONE/ACET 5/325 PREPACK 1 BOTTLE MISC (00:29)
== END 2021-06-20 00:33 | disposition home or self-care (01) ==
PROVIDERS: Emergency Provider Emergency Medicine; Family Provider Family Medicine; PCP Physician Assistant
DX: S16.1XXA Strain of muscle, fascia and tendon at neck level, initial encounter (principal); I10 Essential (primary) hypertension; R53.1 Weakness; W07.XXXA Fall from chair, initial encounter
CPT/HCPCS: 36415; 70450; 70496; 70498; 72125; 80053; 82550; 83690; 84484; 85025; 93005; 93010; 96374; 96375; 99284; J1170; J2270; Q9967

== ENCOUNTER 2022-01-08 16:40 | Inpatient (IN) | payer MEDICARE, MEDICAID, OTHER, SELFPAY ==
[2020-07-12 22:20] VITALS: PULSE 63; RESP 18; O2SAT 96
[2022-01-08] VITALS (21 sets, daily range): BP systolic 143–225; BP diastolic 88–125; PULSE 71–107; RESP 12–48; TEMP 32–36.8; O2SAT 86–99; BMI 33.8; BMI 30.1
--- NOTE | 2022-01-08 17:06 | DI.RAD.S_ITS ---
PROCEDURE: XR CHEST 2V INDICATIONS: shortness of breath TECHNIQUE: 2 views of the chest were acquired. COMPARISON: [facility], CR, XR CHEST 1V, 07/12/2020, 21:09. FINDINGS: Surgical changes and devices: None. Lungs and pleura: Mild diffuse interstitial prominence. Streaky bibasilar opacities likely representing atelectasis. No substantial pleural effusion. No pneumothorax. Mediastinum: Mediastinal contours are normal. Heart size is mildly enlarged. Bones and chest wall: No suspicious bony abnormalities. Soft tissues appear unremarkable. IMPRESSION: Mild cardiomegaly with findings suggestive of early pulmonary edema/CHF. No focal consolidation seen. Dictated by: Jayant Nugent M.D. on 01/08/2022 at 18:05 Approved by: Jayant Nugent M.D. on 01/08/2022 at 18:06
--- NOTE | 2022-01-08 17:22 | ED.SOB ---
HPI - SOB/Dyspnea General Chief Complaint: Shortness of Breath/Dyspnea Stated Complaint: productive cough, SOB, syncope Time Seen by Provider: 01/08/22 17:14 Source: patient Mode of arrival: Ambulatory Limitations: no limitations History of Present Illness HPI Narrative: Patient states he is COVID vaccinated. Denies any sick contacts. Denies any previous lung diseases. No asthma COPD. Does not smoke. He is not on home oxygen. Patient the past 2 days complains of cough cold congestion fever and dyspnea. Has white productive cough. Denies any chest pain. 86% room air on arrival. Dyspneic with exertion. Denies any or diarrhea. Blood pressure noted. Patient states has not been able to take his medicines. Related Data Home Medications Medication Instructions Recorded Confirmed acetaminophen 500 mg tablet 1,000 mg PO Q6H PRN Pain (Scale 11/21/18 01/08/22 Score 1-3) Previous Rx's Medication Instructions Recorded hydrocodone 5 mg-acetaminophen 325 1 tab PO Q6H PRN pain #10 tabs 06/20/21 mg tablet azithromycin 250 mg tablet 500 mg PO DAILY #2 tabs 01/11/22 (Zithromax Z-Nima) carvedilol 25 mg tablet 25 mg PO BID #60 tabs 01/11/22 cefdinir 300 mg capsule 300 mg PO BID #20 caps 01/11/22 losartan 100 mg tablet 100 mg PO DAILY #30 tabs 01/11/22 Allergies Allergy/AdvReac Type Severity Reaction Status Date / Time NSAIDS (Non-Steroidal Allergy Severe Swelling Verified 07/12/20 19:31 Anti-Inflamma of Lip/Tongue/Throat chocolate flavor Allergy Intermediate Swelling Verified 07/12/20 19:31 of Lip/Tongue/Throat peanut Allergy Intermediate Swelling Verified 07/12/20 19:31 of Lip/Tongue/Throat strawberry Allergy Intermediate Swelling Verified 07/12/20 19:31 of Lip/Tongue/Throat celecoxib [From CELEBREX] Allergy Unknown Verified 07/12/20 19:31 lisinopril [LISINOPRIL] Allergy Unknown Verified 07/12/20 19:31 meloxicam [MELOXICAM] Allergy Unknown ANAPHYLAXSI Verified 07/12/20 19:31 S Penicillins [PENICILLINS] Allergy Unknown Verified 07/12/20 19:31 avocado AdvReac Intermediate Swelling Verified 07/12/20 19:31 of Lip/Tongue/Throat peas AdvReac Intermediate Swelling Verified 07/12/20 19:31 of Lip/Tongue/Throat sulfite AdvReac Intermediate Migraine Verified 07/12/20 19:31 Review of Systems Review of Systems Narrative: GENERAL: Positive for chills, fatigue, malaise, fever, sweats. HEENT: Denies sinus pain, ear pain, sore throat RESPIRATORY: Positive for dyspnea, cough CARDIOVASCULAR: Denies chest pain, palpitations GASTROINTESTINAL: Denies nausea, vomiting, abdominal pain : Denies dysuria, frequency, hematuria MUSCULOSKELETAL: denies muscle or bony pain SKIN: Denies rash, skin lesions NEUROLOGIC: Denies weakness, numbness ROS Unobtainable: All systems reviewed & are unremarkable except as noted in HPI and below Patient History Medical History Chronic neck and back pain Coronary artery disease Hypertension Left hemiparesis Right rib fracture Stroke Systolic congestive 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, NYHA class 1 Surgical History History of cholecystectomy History of laparotomy History of shoulder surgery History of surgery on wrist Hx of fusion of cervical spine Family History Father Parkinsons Mother Cancer Brother Cancer Sister No significant medical problems Social History household members: other Smoking Status: Never smoker alcohol intake: current substance use type: does not use Smoking Status: Never smoker alcohol intake frequency: holidays/special occasions only Substance Use Type: marijuana Exam Initial Vital Signs Initial Vital Signs: Vital Signs Temperature 98.2 F 01/08/22 17:14 Pulse Rate 107 H 01/08/22 17:14 Respiratory Rate 26 H 01/08/22 17:14 Blood Pressure 223/125 H 01/08/22 17:14 Pulse Oximetry 86 L 01/08/22 17:14 Oxygen Delivery Method 01/08/22 17:14 Course Course Course Narrative: No new issues during course of stay Decision to Admit Date: 01/08/22 Decision to Admit time: 17:24 Orders Ordered: Discontinued Medications Acetaminophen (Acetaminophen 325 Mg Tablet) 650 mg PO Q6HR PRN PRN Reason: Fever/Mild Pain (1-3) Last Admin: 01/10/22 17:31 Dose: 650 mg Documented By: Admin: 01/10/22 08:45 Dose: 650 mg Documented By: Admin: 01/09/22 07:40 Dose: 650 mg Documented By: Admin: 01/09/22 02:06 Dose: 650 mg Documented By: DEANGELO Hydrocodone Bitart/Acetaminophen (Hydrocodone/Acet 5/325 Tablet) 1 tab PO Q6H PRN PRN Reason: pain Last Admin: 01/11/22 09:29 Dose: 1 tab Documented By: Admin: 01/11/22 01:31 Dose: 1 tab Documented By: Admin: 01/10/22 19:20 Dose: 1 tab Documented By: Admin: 01/10/22 12:50 Dose: 1 tab Documented By: Admin: 01/10/22 06:55 Dose: 1 tab Documented By: Admin: 01/09/22 20:06 Dose: 1 tab Documented By: Admin: 01/09/22 12:28 Dose: 1 tab Documented By: Admin: 01/09/22 04:49 Dose: 1 tab Documented By: Admin: 01/08/22 22:34 Dose: 1 tab Documented By: Albuterol/Ipratropium (Albuterol/Ipratropium 3 Ml Ampul) 3 ml INH NOW ONE Stop: 01/08/22 17:21 Last Admin: 01/08/22 17:29 Dose: 3 ml Documented By: INDIA Albuterol/Ipratropium (Albuterol/Ipratropium 3 Ml Ampul) 3 ml INH NOW ONE Stop: 01/08/22 18:58 Last Admin: 01/08/22 19:08 Dose: 3 ml Documented By: DILLAN Albuterol/Ipratropium (Albuterol/Ipratropium 3 Ml Ampul) 3 ml INH RTQ4HR PRN PRN Reason: Shortness Of Breath Last Admin: 01/08/22 22:41 Dose: 3 ml Documented By: RENETTA Azithromycin (Azithromycin 250 Mg Tablet) 500 mg PO DAILY CHRISTIANE Stop: 01/13/22 14:14 Last Admin: 01/11/22 09:39 Dose: 500 mg Documented By: Admin: 01/10/22 14:40 Dose: 500 mg Documented By: BOB Azithromycin (Azithromycin 250 Mg Tablet) 500 mg PO NOW ONE Stop: 01/11/22 11:03 Last Admin: 01/11/22 11:13 Dose: Not Given Documented By: EDWARDO Calcium Carbonate (Calcium Carbonate 500 Mg Tab) 1,000 mg PO Q4HR PRN PRN Reason: Dyspepsia Last Admin: 01/10/22 08:50 Dose: 1,000 mg Documented By: BOB Carvedilol (Carvedilol 12.5 Mg Tablet) 12.5 mg PO BID [facility] Last Admin: 01/08/22 21:34 Dose: 12.5 mg Documented By: EMMA Carvedilol (Carvedilol 12.5 Mg Tablet) 25 mg PO BID [facility] Last Admin: 01/11/22 09:30 Dose: 25 mg Documented By: Admin: 01/10/22 21:57 Dose: 25 mg Documented By: Admin: 01/10/22 08:45 Dose: 25 mg Documented By: Admin: 01/09/22 20:05 Dose: 25 mg Documented By: Admin: 01/09/22 08:07 Dose: 25 mg Documented By: BOB Enoxaparin Sodium (Enoxaparin 40 Mg/0.4 Ml Syringe) 40 mg SUBCUT DAILY [facility] Last Admin: 01/11/22 09:31 Dose: 40 mg Documented By: Admin: 01/10/22 08:46 Dose: 40 mg Documented By: Admin: 01/09/22 08:06 Dose: 40 mg Documented By: BOB Furosemide (Furosemide 40 Mg/4 Ml Vial) 40 mg IV NOW ONE Stop: 01/08/22 18:57 Last Admin: 01/08/22 19:03 Dose: 40 mg Documented By: DEENA Furosemide (Furosemide 20 Mg/2 Ml Vial) 20 mg IV BID [facility] Furosemide (Furosemide 20 Mg/2 Ml Vial) 20 mg IV BID [facility] Furosemide (Furosemide 20 Mg/2 Ml Vial) 20 mg IV BID@0900,1700 [facility] Furosemide (Furosemide 20 Mg/2 Ml Vial) 20 mg IV NOW ONE Stop: 01/09/22 06:18 Last Admin: 01/09/22 06:37 Dose: 20 mg Documented By: DEANGELO Furosemide (Furosemide 20 Mg/2 Ml Vial) 40 mg IV BID@0900,1700 [facility] Last Admin: 01/09/22 08:03 Dose: Not Given Documented By: BOB Furosemide (Furosemide 20 Mg/2 Ml Vial) 40 mg IV BID@0900,1700 [facility] Last Admin: 01/11/22 09:31 Dose: 40 mg Documented By: Admin: 01/10/22 17:31 Dose: 40 mg Documented By: Admin: 01/10/22 08:44 Dose: 40 mg Documented By: Admin: 01/09/22 16:54 Dose: 40 mg Documented By: BOB Furosemide (Furosemide 40 Mg/4 Ml Vial) 20 mg IV NOW ONE Stop: 01/09/22 07:28 Last Admin: 01/09/22 08:06 Dose: 20 mg Documented By: BOB Hydromorphone HCl (Hydromorphone 1 Mg Inj) 1 mg IV Q4H PRN PRN Reason: Pain, -severe (7-10) Last Admin: 01/11/22 03:58 Dose: 1 mg Documented By: Admin: 01/10/22 17:31 Dose: 1 mg Documented By: Admin: 01/10/22 04:22 Dose: 1 mg Documented By: Admin: 01/09/22 16:54 Dose: 1 mg Documented By: Admin: 01/09/22 04:06 Dose: 1 mg Documented By: Admin: 01/08/22 23:28 Dose: 1 mg Documented By: Ceftriaxone Sodium 1,000 mg/ (Sodium Chloride) 100 mls @ 200 mls/hr IV Q24H [facility] Stop: 01/15/22 14:14 Last Infusion: 01/10/22 15:30 Dose: 0 mls/hr Documented By: Admin: 01/10/22 14:40 Dose: 200 mls/hr Documented By: BOB Loperamide HCl (Loperamide 2 Mg Capsule) 2 mg PO QID PRN PRN Reason: Diarrhea Lorazepam (Lorazepam 1 Mg Tablet) 2 mg PO NOW ONE Stop: 01/09/22 06:05 Last Admin: 01/09/22 06:12 Dose: 2 mg Documented By: DEANGELO Losartan Potassium (Losartan 50 Mg Tablet) 50 mg PO NOW ONE Stop: 01/08/22 20:54 Last Admin: 01/08/22 21:39 Dose: 50 mg Documented By: EMMA Losartan Potassium (Losartan 50 Mg Tablet) 50 mg PO DAILY [facility] Losartan Potassium (Losartan 50 Mg Tablet) 50 mg PO DAILY [facility] Losartan Potassium (Losartan 50 Mg Tablet) 50 mg PO NOW ONE Stop: 01/09/22 06:20 Last Admin: 01/09/22 06:37 Dose: 50 mg Documented By: DEANGELO Losartan Potassium (Losartan 50 Mg Tablet) 100 mg PO DAILY [facility] Last Admin: 01/11/22 09:30 Dose: 100 mg Documented By: Admin: 01/10/22 08:45 Dose: 100 mg Documented By: BOB Losartan Potassium (Losartan 50 Mg Tablet) 50 mg PO NOW ONE Stop: 01/09/22 21:01 Last Admin: 01/09/22 20:04 Dose: 50 mg Documented By: FRANCHESKA Methylprednisolone (Methylprednisolone 125 Mg/2 Ml Vial) 60 mg IV NOW ONE Stop: 01/08/22 23:08 Last Admin: 01/08/22 23:22 Dose: 60 mg Documented By: Metoprolol Tartrate (Metoprolol Tartrate 5 Mg/5 Ml Inj) 5 mg IV Q5M PRN PRN Reason: HTN SBP>180, DBP>100->30min Stop: 01/10/22 23:26 Last Admin: 01/09/22 03:07 Dose: 5 mg Documented By: DEANGELO Nitroglycerin (Nitroglycerin Oint 1 Inch/Gm Oint...G.) 1 inch TOP NOW ONE Stop: 01/08/22 18:57 Last Admin: 01/08/22 19:03 Dose: 1 inch Documented By: DEENA Ondansetron HCl (Ondansetron 4 Mg/2 Ml Inj) 4 mg IV Q6HR PRN PRN Reason: Nausea And Vomiting Last Admin: 01/10/22 10:27 Dose: 4 mg Documented By: BOB Potassium Chloride (Potassium Chloride 20 Meq Tab) 40 meq PO Q6H [facility] Stop: 01/10/22 13:31 Last Admin: 01/10/22 12:50 Dose: 40 meq Documented By: Admin: 01/10/22 08:45 Dose: 40 meq Documented By: BOB Potassium Chloride (Potassium Chloride 20 Meq Tab) 40 meq PO NOW ONE Stop: 01/11/22 09:26 Last Admin: 01/11/22 09:30 Dose: 40 meq Documented By: EDWARDO Prednisone (Prednisone 20 Mg Tablet) 40 mg PO DAILY [facility] Last Admin: 01/08/22 21:39 Dose: 40 mg Documented By: EMMA Sodium Chloride (Sodium Chloride 0.9% Flush) 10 ml IV PRN PRN PRN Reason: Flush Last Admin: 01/09/22 03:07 Dose: 10 ml Documented By: DEANGELO Sodium Chloride (Sodium Chloride 0.9% Flush) 10 ml IV BID [facility] Last Admin: 01/11/22 09:39 Dose: 10 ml Documented By: Admin: 01/10/22 21:58 Dose: 10 ml Documented By: Admin: 01/10/22 08:45 Dose: 10 ml Documented By: Admin: 01/09/22 20:11 Dose: 10 ml Documented By: Admin: 01/09/22 08:07 Dose: 10 ml Documented By: BOB Spironolactone (Spironolactone 25 Mg Tablet) 25 mg PO DAILY [facility] Last Admin: 01/11/22 09:30 Dose: 25 mg Documented By: Admin: 01/10/22 08:45 Dose: 25 mg Documented By: BOB Reevaluation(s) Reevaluation #1: Patient became dyspneic and hypoxic again. Lasix and nitro paste as well as breathing treatment has been ordered Time: 19:01 Consultations Consultation #1: Spoke with Antonette Champagne, nurse practitioner hospitalist, will admit patient, would like to add troponin as well as ABG. She states patient has been here before and diagnosed with CHF in the past. Did have echocardiogram 2 years ago here. Time: 19:41 Vital Signs Vital signs: Vital Signs - 8 hr 01/08/22 17:14 01/08/22 17:18 01/08/22 17:29 Temperature 98.2 F Pulse Rate 107 H 93 H 89 Respiratory Rate 26 H 23 24 Blood Pressure 223/125 H Pulse Oximetry 86 L 97 96 Oxygen Delivery Method Room Air Nasal Cannula Nasal Cannula Oxygen Flow Rate 3 3 01/08/22 19:03 01/08/22 19:08 01/08/22 17:30 Temperature Pulse Rate 99 H 92 H 91 H Respiratory Rate 24 21 Blood Pressure 225/93 H Pulse Oximetry 96 97 Oxygen Delivery Method Room Air Oxygen Flow Rate 01/08/22 17:45 01/08/22 17:45 01/08/22 18:00 Temperature Pulse Rate 98 H 87 Respiratory Rate 48 H 26 H Blood Pressure 193/116 H Pulse Oximetry 96 97 Oxygen Delivery Method Oxygen Flow Rate 01/08/22 18:30 01/08/22 18:42 01/08/22 18:42 Temperature Pulse Rate 93 H 96 H Respiratory Rate 41 H 39 H Blood Pressure 187/104 H Pulse Oximetry 97 96 Oxygen Delivery Method Oxygen Flow Rate 01/08/22 19:00 01/08/22 19:01 01/08/22 19:01 Temperature Pulse Rate 90 88 Respiratory Rate 35 H 30 H Blood Pressure 225/93 H Pulse Oximetry 95 96 Oxygen Delivery Method Oxygen Flow Rate MDM - SOB/Dyspnea Differential Diagnosis Differential diagnosis: Likely acute exacerbation of chronic obstructive airways disease, community acquired pneumonia and asthma with exacerbation Lab Data Result diagrams: 01/09/22 04:40 01/11/22 05:07 Labs: Lab Results 01/08/22 01/08/22 01/08/22 Range/Units 17:21 17:21 17:21 WBC 7.3 (4.5-11.0) X10^3/uL RBC 5.13 (4.5-5.9) X10^6/uL Hgb 15.4 (13.5-17.5) g/dL Hct 44.0 (41-53) % MCV 85.8 (80-100) fL MCH 29.9 (26-34) PG MCHC 34.9 (30-36) % RDW 13.8 (11.6-14.8) % Plt Count 322 (150-400) X10^3/uL Neut % (Auto) 77.6 H (50-75) % Lymph % (Auto) 9.0 L (25-40) % Long % (Auto) 6.8 (3-14) % Eos % (Auto) 5.7 H (2-4) % Baso % (Auto) 0.9 (0-2) % Neut # (Auto) 5700 (6816-4958) /uL Lymph # (Auto) 700 L (1729-3881) /uL Long # (Auto) 500 (0-900) /uL Eos # (Auto) 400 (0-450) /uL Baso # (Auto) 100 (0-100) /uL D-Dimer (<500) ng/ml ABG pH (7.35-7.45) ABG pCO2 (35-45) mmHg ABG pO2 (80-100) mmHg ABG HCO3 (22-26) mmol/L ABG Total CO2 (21-31) mmol/L ABG O2 Saturation (95-100) % ABG Base Excess (-2-2) mmol/L FiO2 Sodium 137 (137-145) mmol/L Potassium 3.8 (3.4-5.1) mmol/L Chloride 96 L (98-107) mmol/L Carbon Dioxide 33 H (22-32) mmol/L BUN 8 L (9-20) mg/dL Creatinine 0.94 (0.66-1.25) mg/dL Estimated GFR > 60 (>60) mL/min BUN/Creatinine Ratio 8.5 (6-22) Glucose 110 (80-110) mg/dL Lactate 1.4 (0.7-2.1) mmol/L Calcium 9.6 (8.4-10.2) mg/dL Magnesium (1.6-2.3) mg/dL Total Bilirubin 1.1 (0.2-1.3) mg/dL AST 62 H (17-59) IU/L ALT 23 (<50) IU/L Alkaline Phosphatase 122 (38-126) U/L Total Creatine Kinase (55-170) U/L CK-MB (CK-2) CK-MB (CK-2) Rel Index Troponin I (0.01-0.034) ng/mL NT-Pro-B Natriuret Pep (<125) pg/mL Total Protein 8.7 H (6.3-8.2) g/dL Albumin 4.4 (3.5-5.0) g/dL Globulin 4.3 H (1.7-4.1) g/dL Albumin/Globulin Ratio 1.0 (1.0-2.8) Triglycerides (35-150) mg/dL Cholesterol (140-199) mg/dL LDL Cholesterol, Calc (<100) mg/dL HDL Cholesterol (40-60) mg/dL Lipase (23-300) U/L Procalcitonin (<0.5) ng/mL TSH (0.47-4.68) uIU/mL Chlamy pneumoniae PCR (Not Detect) Adenovirus (PCR) (Not Detect) B. pertussis DNA (PCR) (Not Detecte) B.parapertussis DNA PCR (Not Detecte) Coronavirus OC43 (PCR) (Not Detect) Coronavirus HKU1 (PCR) (Not Detect) Coronavirus 229E (PCR) (Not Detect) SARS-CoV-2 (PCR) (Negative) Coronavirus NL63 (PCR) (Not Detect) Human Metapneumovir PCR (Not Detect) Influenza Type A (PCR) (Not Detect) Influenza Type B (PCR) (Not Detect) M. pneumoniae (PCR) (Not Detect) Parainfluenza 1 (PCR) (Not Detect) Parainfluenza 2 (PCR) (Not Detect) Parainfluenza 3 (PCR) (Not Detect) Parainfluenza 4 (PCR) (Not Detect) RSV (PCR) (Not Detect) Entero/Rhino (PCR) (Not Detect) 01/08/22 01/08/22 01/08/22 Range/Units 17:21 17:21 17:21 WBC (4.5-11.0) X10^3/uL RBC (4.5-5.9) X10^6/uL Hgb (13.5-17.5) g/dL Hct (41-53) % MCV (80-100) fL MCH (26-34) PG MCHC (30-36) % RDW (11.6-14.8) % Plt Count (150-400) X10^3/uL Neut % (Auto) (50-75) % Lymph % (Auto) (25-40) % Long % (Auto) (3-14) % Eos % (Auto) (2-4) % Baso % (Auto) (0-2) % Neut # (Auto) (2240-8936) /uL Lymph # (Auto) (3909-8615) /uL Long # (Auto) (0-900) /uL Eos # (Auto) (0-450) /uL Baso # (Auto) (0-100) /uL D-Dimer (<500) ng/ml ABG pH (7.35-7.45) ABG pCO2 (35-45) mmHg ABG pO2 (80-100) mmHg ABG HCO3 (22-26) mmol/L ABG Total CO2 (21-31) mmol/L ABG O2 Saturation (95-100) % ABG Base Excess (-2-2) mmol/L FiO2 Sodium (137-145) mmol/L Potassium (3.4-5.1) mmol/L Chloride (98-107) mmol/L Carbon Dioxide (22-32) mmol/L BUN (9-20) mg/dL Creatinine (0.66-1.25) mg/dL Estimated GFR (>60) mL/min BUN/Creatinine Ratio (6-22) Glucose (80-110) mg/dL Lactate (0.7-2.1) mmol/L Calcium (8.4-10.2) mg/dL Magnesium (1.6-2.3) mg/dL Total Bilirubin (0.2-1.3) mg/dL AST (17-59) IU/L ALT (<50) IU/L Alkaline Phosphatase (38-126) U/L Total Creatine Kinase (55-170) U/L CK-MB (CK-2) CK-MB (CK-2) Rel Index Troponin I (0.01-0.034) ng/mL NT-Pro-B Natriuret Pep 2270 H (<125) pg/mL Total Protein (6.3-8.2) g/dL Albumin (3.5-5.0) g/dL Globulin (1.7-4.1) g/dL Albumin/Globulin Ratio (1.0-2.8) Triglycerides (35-150) mg/dL Cholesterol (140-199) mg/dL LDL Cholesterol, Calc (<100) mg/dL HDL Cholesterol (40-60) mg/dL Lipase (23-300) U/L Procalcitonin 0.07 (<0.5) ng/mL TSH (0.47-4.68) uIU/mL Chlamy pneumoniae PCR (Not Detect) Adenovirus (PCR) (Not Detect) B. pertussis DNA (PCR) (Not Detecte) B.parapertussis DNA PCR (Not Detecte) Coronavirus OC43 (PCR) (Not Detect) Coronavirus HKU1 (PCR) (Not Detect) Coronavirus 229E (PCR) (Not Detect) SARS-CoV-2 (PCR) Negative (Negative) Coronavirus NL63 (PCR) (Not Detect) Human Metapneumovir PCR (Not Detect) Influenza Type A (PCR) (Not Detect) Influenza Type B (PCR) (Not Detect) M. pneumoniae (PCR) (Not Detect) Parainfluenza 1 (PCR) (Not Detect) Parainfluenza 2 (PCR) (Not Detect) Parainfluenza 3 (PCR) (Not Detect) Parainfluenza 4 (PCR) (Not Detect) RSV (PCR) (Not Detect) Entero/Rhino (PCR) (Not Detect) 01/08/22 01/08/22 01/08/22 Range/Units 17:21 17:21 17:21 WBC (4.5-11.0) X10^3/uL RBC (4.5-5.9) X10^6/uL Hgb (13.5-17.5) g/dL Hct (41-53) % MCV (80-100) fL MCH (26-34) PG MCHC (30-36) % RDW (11.6-14.8) % Plt Count (150-400) X10^3/uL Neut % (Auto) (50-75) % Lymph % (Auto) (25-40) % Long % (Auto) (3-14) % Eos % (Auto) (2-4) % Baso % (Auto) (0-2) % Neut # (Auto) (7053-2197) /uL Lymph # (Auto) (1884-8047) /uL Long # (Auto) (0-900) /uL Eos # (Auto) (0-450) /uL Baso # (Auto) (0-100) /uL D-Dimer (<500) ng/ml ABG pH (7.35-7.45) ABG pCO2 (35-45) mmHg ABG pO2 (80-100) mmHg ABG HCO3 (22-26) mmol/L ABG Total CO2 (21-31) mmol/L ABG O2 Saturation (95-100) % ABG Base Excess (-2-2) mmol/L FiO2 Sodium (137-145) mmol/L Potassium (3.4-5.1) mmol/L Chloride (98-107) mmol/L Carbon Dioxide (22-32) mmol/L BUN (9-20) mg/dL Creatinine (0.66-1.25) mg/dL Estimated GFR (>60) mL/min BUN/Creatinine Ratio (6-22) Glucose (80-110) mg/dL Lactate (0.7-2.1) mmol/L Calcium (8.4-10.2) mg/dL Magnesium 2.3 (1.6-2.3) mg/dL Total Bilirubin (0.2-1.3) mg/dL AST (17-59) IU/L ALT (<50) IU/L Alkaline Phosphatase (38-126) U/L Total Creatine Kinase (55-170) U/L CK-MB (CK-2) CK-MB (CK-2) Rel Index Troponin I (0.01-0.034) ng/mL NT-Pro-B Natriuret Pep (<125) pg/mL Total Protein (6.3-8.2) g/dL Albumin (3.5-5.0) g/dL Globulin (1.7-4.1) g/dL Albumin/Globulin Ratio (1.0-2.8) Triglycerides 69 (35-150) mg/dL Cholesterol 149 (140-199) mg/dL LDL Cholesterol, Calc 78 (<100) mg/dL HDL Cholesterol 57 (40-60) mg/dL Lipase (23-300) U/L Procalcitonin (<0.5) ng/mL TSH 0.547 (0.47-4.68) uIU/mL Chlamy pneumoniae PCR Not detected (Not Detect) Adenovirus (PCR) Not detected (Not Detect) B. pertussis DNA (PCR) Not detected (Not Detecte) B.parapertussis DNA PCR Not detected (Not Detecte) Coronavirus OC43 (PCR) Not detected (Not Detect) Coronavirus HKU1 (PCR) Not detected (Not Detect) Coronavirus 229E (PCR) Not detected (Not Detect) SARS-CoV-2 (PCR) Not detected (Negative) Coronavirus NL63 (PCR) Not detected (Not Detect) Human Metapneumovir PCR Not detected (Not Detect) Influenza Type A (PCR) Not detected (Not Detect) Influenza Type B (PCR) Not detected (Not Detect) M. pneumoniae (PCR) Not detected (Not Detect) Parainfluenza 1 (PCR) Not detected (Not Detect) Parainfluenza 2 (PCR) Not detected (Not Detect) Parainfluenza 3 (PCR) Not detected (Not Detect) Parainfluenza 4 (PCR) Not detected (Not Detect) RSV (PCR) Not detected (Not Detect) Entero/Rhino (PCR) Not detected (Not Detect) 01/08/22 01/08/22 01/08/22 Range/Units 17:21 17:21 20:05 WBC (4.5-11.0) X10^3/uL RBC (4.5-5.9) X10^6/uL Hgb (13.5-17.5) g/dL Hct (41-53) % MCV (80-100) fL MCH (26-34) PG MCHC (30-36) % RDW (11.6-14.8) % Plt Count (150-400) X10^3/uL Neut % (Auto) (50-75) % Lymph % (Auto) (25-40) % Long % (Auto) (3-14) % Eos % (Auto) (2-4) % Baso % (Auto) (0-2) % Neut # (Auto) (3019-5426) /uL Lymph # (Auto) (5088-3270) /uL Long # (Auto) (0-900) /uL Eos # (Auto) (0-450) /uL Baso # (Auto) (0-100) /uL D-Dimer 573 H (<500) ng/ml ABG pH (7.35-7.45) ABG pCO2 (35-45) mmHg ABG pO2 (80-100) mmHg ABG HCO3 (22-26) mmol/L ABG Total CO2 (21-31) mmol/L ABG O2 Saturation (95-100) % ABG Base Excess (-2-2) mmol/L FiO2 Sodium (137-145) mmol/L Potassium (3.4-5.1) mmol/L Chloride (98-107) mmol/L Carbon Dioxide (22-32) mmol/L BUN (9-20) mg/dL Creatinine (0.66-1.25) mg/dL Estimated GFR (>60) mL/min BUN/Creatinine Ratio (6-22) Glucose (80-110) mg/dL Lactate (0.7-2.1) mmol/L Calcium (8.4-10.2) mg/dL Magnesium (1.6-2.3) mg/dL Total Bilirubin (0.2-1.3) mg/dL AST (17-59) IU/L ALT (<50) IU/L Alkaline Phosphatase (38-126) U/L Total Creatine Kinase 94 (55-170) U/L CK-MB (CK-2) TNP CK-MB (CK-2) Rel Index TNP Troponin I 0.014 (0.01-0.034) ng/mL NT-Pro-B Natriuret Pep (<125) pg/mL Total Protein (6.3-8.2) g/dL Albumin (3.5-5.0) g/dL Globulin (1.7-4.1) g/dL Albumin/Globulin Ratio (1.0-2.8) Triglycerides (35-150) mg/dL Cholesterol (140-199) mg/dL LDL Cholesterol, Calc (<100) mg/dL HDL Cholesterol (40-60) mg/dL Lipase 283 (23-300) U/L Procalcitonin (<0.5) ng/mL TSH (0.47-4.68) uIU/mL Chlamy pneumoniae PCR (Not Detect) Adenovirus (PCR) (Not Detect) B. pertussis DNA (PCR) (Not Detecte) B.parapertussis DNA PCR (Not Detecte) Coronavirus OC43 (PCR) (Not Detect) Coronavirus HKU1 (PCR) (Not Detect) Coronavirus 229E (PCR) (Not Detect) SARS-CoV-2 (PCR) (Negative) Coronavirus NL63 (PCR) (Not Detect) Human Metapneumovir PCR (Not Detect) Influenza Type A (PCR) (Not Detect) Influenza Type B (PCR) (Not Detect) M. pneumoniae (PCR) (Not Detect) Parainfluenza 1 (PCR) (Not Detect) Parainfluenza 2 (PCR) (Not Detect) Parainfluenza 3 (PCR) (Not Detect) Parainfluenza 4 (PCR) (Not Detect) RSV (PCR) (Not Detect) Entero/Rhino (PCR) (Not Detect) 01/08/22 Range/Units 20:07 WBC (4.5-11.0) X10^3/uL RBC (4.5-5.9) X10^6/uL Hgb (13.5-17.5) g/dL Hct (41-53) % MCV (80-100) fL MCH (26-34) PG MCHC (30-36) % RDW (11.6-14.8) % Plt Count (150-400) X10^3/uL Neut % (Auto) (50-75) % Lymph % (Auto) (25-40) % Long % (Auto) (3-14) % Eos % (Auto) (2-4) % Baso % (Auto) (0-2) % Neut # (Auto) (6810-6549) /uL Lymph # (Auto) (3326-4198) /uL Long # (Auto) (0-900) /uL Eos # (Auto) (0-450) /uL Baso # (Auto) (0-100) /uL D-Dimer (<500) ng/ml ABG pH 7.56 H (7.35-7.45) ABG pCO2 36.1 (35-45) mmHg ABG pO2 55 L (80-100) mmHg ABG HCO3 32 H (22-26) mmol/L ABG Total CO2 33 H (21-31) mmol/L ABG O2 Saturation 92 L (95-100) % ABG Base Excess 10.0 H (-2-2) mmol/L FiO2 21 Sodium (137-145) mmol/L Potassium (3.4-5.1) mmol/L Chloride (98-107) mmol/L Carbon Dioxide (22-32) mmol/L BUN (9-20) mg/dL Creatinine (0.66-1.25) mg/dL Estimated GFR (>60) mL/min BUN/Creatinine Ratio (6-22) Glucose (80-110) mg/dL Lactate (0.7-2.1) mmol/L Calcium (8.4-10.2) mg/dL Magnesium (1.6-2.3) mg/dL Total Bilirubin (0.2-1.3) mg/dL AST (17-59) IU/L ALT (<50) IU/L Alkaline Phosphatase (38-126) U/L Total Creatine Kinase (55-170) U/L CK-MB (CK-2) CK-MB (CK-2) Rel Index Troponin I (0.01-0.034) ng/mL NT-Pro-B Natriuret Pep (<125) pg/mL Total Protein (6.3-8.2) g/dL Albumin (3.5-5.0) g/dL Globulin (1.7-4.1) g/dL Albumin/Globulin Ratio (1.0-2.8) Triglycerides (35-150) mg/dL Cholesterol (140-199) mg/dL LDL Cholesterol, Calc (<100) mg/dL HDL Cholesterol (40-60) mg/dL Lipase (23-300) U/L Procalcitonin (<0.5) ng/mL TSH (0.47-4.68) uIU/mL Chlamy pneumoniae PCR (Not Detect) Adenovirus (PCR) (Not Detect) B. pertussis DNA (PCR) (Not Detecte) B.parapertussis DNA PCR (Not Detecte) Coronavirus OC43 (PCR) (Not Detect) Coronavirus HKU1 (PCR) (Not Detect) Coronavirus 229E (PCR) (Not Detect) SARS-CoV-2 (PCR) (Negative) Coronavirus NL63 (PCR) (Not Detect) Human Metapneumovir PCR (Not Detect) Influenza Type A (PCR) (Not Detect) Influenza Type B (PCR) (Not Detect) M. pneumoniae (PCR) (Not Detect) Parainfluenza 1 (PCR) (Not Detect) Parainfluenza 2 (PCR) (Not Detect) Parainfluenza 3 (PCR) (Not Detect) Parainfluenza 4 (PCR) (Not Detect) RSV (PCR) (Not Detect) Entero/Rhino (PCR) (Not Detect) Imaging Data Chest x-ray: Radiologist's Impression: [address] [address] XRay Report Signed Patient: Octaviano Jj Jr MR#: [id number] : 1955 Acct:[id number] Age/Sex: 66 / M Date of Service: 01/08/22 Loc: ED Accession Number: [id number] ?? Procedure: XR chest 2V Ordering Provider: Shankar Banegas MD PROCEDURE:? XR CHEST 2V ? INDICATIONS:? shortness of breath ? TECHNIQUE:? 2 views of the chest were acquired.? ? COMPARISON:? [facility], CR, XR CHEST 1V, 07/12/2020, 21:09. ? FINDINGS:? ? Surgical changes and devices:? None.? ? Lungs and pleura:? Mild diffuse interstitial prominence.? Streaky bibasilar opacities likely representing atelectasis.? No substantial pleural effusion.? No pneumothorax. ? Mediastinum:? Mediastinal contours are normal.? Heart size is mildly enlarged.? ? Bones and chest wall:? No suspicious bony abnormalities.? Soft tissues appear unremarkable.? ? IMPRESSION:? Mild cardiomegaly with findings suggestive of early pulmonary edema/CHF.? No focal consolidation seen. ? ? Dictated by: Jayant Nugent M.D. on 01/08/2022 at 18:05 ? ? Approved by: Jayant Nugent M.D. on 01/08/2022 at 18:06 ? ECG Data Interpretation: Sinus rhythm rate [address] elevation or depression MDM Narrative Medical decision making narrative: Appropriate for admission. Patient requiring supplemental oxygen. Will need diuresis for likely new onset congestive heart failure. Discharge Plan Departure Patient Disposition: Admitted As Inpatient Clinical Impression: Congestive heart failure Admit Date/Time: 01/08/22 20:53 Admit Provider: Antonette Champagne
[2022-01-08] MEDS: ALBUTEROL/IPRATROPIUM 3 ML AMPUL INH ×3 (17:29→22:41)
--- NOTE | 2022-01-08 17:47 | RT ---
pt cristina neb tx well, mod sob noted with exp wheezes heard throughout and course . pt on 3 lpm nc and stated he felt better post tx.
[2022-01-08 17:51] LABS: COVID19 -Nasal RAPID Negative (Negative)
[2022-01-08 17:56] LABS: Add Manual Diff / Slide Review NO; Basophils Absolute Auto 100 /uL (0-100); Basophils Percent Auto 0.9 % (0-2); Eosinophils Absolute Auto 400 /uL (0-450); Eosinophils Percent Auto 5.7 % (2-4); Hemoglobin 15.4 g/dL (13.5-17.5); Lymphocytes Absolute Auto 700 /uL (1100-4500); Mean Corpuscular HGB Conc 34.9 % (30-36); Mean Corpuscular Hemoglobin 29.9 PG (26-34); Mean Corpuscular Volume 85.8 fL (80-100); Monocytes Absolute Auto 500 /uL (0-900); Monocytes Percent Auto 6.8 % (3-14); Neutrophils Absolute Auto 5700 /uL (1500-7000); Neutrophils Percent Auto 77.6 % (50-75); Platelet Count 322 X10^3/uL (150-400); Red Blood Cell Count 5.13 X10^6/uL (4.5-5.9); Red Cell Distribution Width 13.8 % (11.6-14.8); White Blood Cell Count 7.3 X10^3/uL (4.5-11.0)
[2022-01-08 18:26] LABS: Alanine Aminotransferase 23 IU/L (<50); Albumin 4.4 g/dL (3.5-5.0); Alkaline Phosphatase 122 U/L (38-126); Aspartate Aminotransferase 62 IU/L (17-59); BUN Creatinine Ratio 8.5 (6-22); Bilirubin Total 1.1 mg/dL (0.2-1.3); Blood Urea Nitrogen 8 mg/dL (9-20); Calcium 9.6 mg/dL (8.4-10.2); Carbon Dioxide 33 mmol/L (22-32); Chloride 96 mmol/L (98-107); Estimated Glomerular Filt Rate > 60 mL/min (>60); Globulin 4.3 g/dL (1.7-4.1); Glucose 110 mg/dL (80-110); HEMOLYSIS 40 (0-50); Potassium 3.8 mmol/L (3.4-5.1); Sodium 137 mmol/L (137-145); Total Protein 8.7 g/dL (6.3-8.2)
[2022-01-08 18:35] LABS: Lactate (Lactic Acid) 1.4 mmol/L (0.7-2.1)
[2022-01-08 18:36] LABS: NT-proBNP (BNP-Adult 18+) 2270 pg/mL (<125)
[2022-01-08 18:53] LABS: Procalcitonin 0.07 ng/mL (<0.5)
[2022-01-08] MEDS: NITROGLYCERIN OINT 1 INCH/GM OINT...G. TOP (19:03)
[2022-01-08] MEDS: FUROSEMIDE 40 MG/4 ML VIAL IV (19:03)
[2022-01-08 20:23] LABS: Adenovirus Not Detected (Not Detect); B. parapertussis Not Detected (Not Detecte); Bordetella pertussis Not Detected (Not Detecte); Chlamydophila pneumoniae Not Detected (Not Detect); Coronavirus 229E Not Detected (Not Detect); Coronavirus HKU1 Not Detected (Not Detect); Coronavirus NL 63 Not Detected (Not Detect); Coronavirus OC43 Not Detected (Not Detect); Human Metapneumovirus Not Detected (Not Detect); Human Rhinovirus/Enterovirus Not Detected (Not Detect); Influenza A Not Detected (Not Detect); Influenza B Not Detected (Not Detect); Mycoplasma pneumoniae Not Detected (Not Detect); Parainfluenza Virus 1 Not Detected (Not Detect); Parainfluenza Virus 2 Not Detected (Not Detect); Parainfluenza Virus 3 Not Detected (Not Detect); Parainfluenza Virus 4 Not Detected (Not Detect); Respiratory Syncytial Virus Not Detected (Not Detect); SARS- CoV-2 Not Detected (Not Detecte)
[2022-01-08 20:30] LABS: HCO3 ABG 32 mmol/L (22-26); Oxygen Saturation ABG 92 % (95-100); PCO2 ABG 36.1 mmHg (35-45); PO2 ABG 55 mmHg (80-100); TCO2 ABG 33 mmol/L (21-31)
[2022-01-08 20:31] LABS: Fractionated Inspired Oxygen 21; pH ABG 7.56 (7.35-7.45)
--- NOTE | 2022-01-08 20:39 | PM.HP.1 ---
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 Patient denies history of COPD, asthma, or smoking. Patient does note that he has been out of his blood pressure medications Coreg and losartan for 1-2 weeks. The patient reports fatigue, exertional dyspnea and orthopnea with headache and neck pain but this is been chronic related to cervical fusion, as well as bilateral chest/ back pain that is exacerbated from coughing & deep inspiration.? He has had a productive cough of clear sputum, and has induced vomiting trying to clear secretions. He also complains of all over body aches, chills, mild nasal drainage, no sore throat, ear discomfort, no recent illness, no extremity edema, denies fever. He has had multiple surgeries bilateral shoulders and numerous abdominal surgeries for hernia repair.? He has had no recent sick contacts.? He has chest pain without palpitations and shortness of breath with cough as previously noted.? No new abdominal pain, nausea, or vomiting (not r/t cough) and has no diarrhea or constipation.? His last bowel movement was this morning.? He reports no difficulty urinating.? He has a residual left-sided weakness from a stroke 10 years ago and is experience numerous falls. May have sprained his right ankle from a fall a few days ago, no swelling or bruising noted on inital exam. Patient received 40 mg IV Lasix in ED along with to nebulizing treatments, and nitro paste for chest discomfort and hypertensive emergency. No blood pressure meds were given. Vital signs upon admit patient is afebrile temp 98.2?, BP 225/93, HR 92, R 24, O2 saturation was 96% on 3L N/C. Patient is sitting up on the side of the bed mildly ill appearing fatigued but in acute distress at this time. Patient's CBC is unremarkable, ABGs: Demonstrate metabolic alkalosis PH 7.56, PO2 55, HC03 32, T CO2 33, O2 saturation 92%, base excess 10, FiO2 21. Patient's renal and chemistry panels are unremarkable, no QUINTON. Lactate and procalcitonin are WNL. Patient's liver enzymes are WNL, BNP 2270, respiratory panel and COVID are negative, lipase, D-dimer, and troponin pending. Patient's C-spine, head CT, head neck CTA are all unremarkable for any acute processes. Patient's chest x-ray notes mild cardiomegaly a with possible pulmonary edema CHF. EKG sinus rhythm [address] or T-wave changes. Patient admitted for observation for acute respiratory failure and hypertensive emergency secondary to CHF exacerbation. Patient History Medical History Chronic neck and back pain Coronary artery disease Hypertension Left hemiparesis Right rib fracture Stroke Systolic congestive 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, NYHA class 1 Surgical History History of cholecystectomy History of laparotomy History of shoulder surgery History of surgery on wrist Hx of fusion of cervical spine Family & Social History Family History Father Parkinsons Mother Cancer Brother Cancer Sister No significant medical problems Social History: household members spouse Safety & Behavioral: Feels Safe in Current Yes Environment Tobacco & Substance use: Smoking Status Never smoker alcohol intake never alcohol intake frequency holiday/special occasion Substance Use Type marijuana Meds Home Medications and Allergies Home Medications Medication Instructions Recorded Confirmed Type acetaminophen 500 mg tablet 1,000 mg PO Q6H PRN Pain (Scale 11/21/18 01/08/22 History Score 1-3) carvedilol 25 mg tablet 12.5 mg PO BID 11/21/18 01/08/22 History losartan 50 mg tablet 50 mg PO DAILY 07/12/20 01/08/22 History hydrocodone 5 mg-acetaminophen 325 1 tab PO Q6H PRN pain #10 tabs 06/20/21 01/08/22 Rx mg tablet Allergies Allergy/AdvReac Type Severity Reaction Status Date / Time NSAIDS (Non-Steroidal Allergy Severe Swelling Verified 07/12/20 19:31 Anti-Inflamma of Lip/Tongue/Throat chocolate flavor Allergy Intermediate Swelling Verified 07/12/20 19:31 of Lip/Tongue/Throat peanut Allergy Intermediate Swelling Verified 07/12/20 19:31 of Lip/Tongue/Throat strawberry Allergy Intermediate Swelling Verified 07/12/20 19:31 of Lip/Tongue/Throat celecoxib [From CELEBREX] Allergy Unknown Verified 07/12/20 19:31 lisinopril [LISINOPRIL] Allergy Unknown Verified 07/12/20 19:31 meloxicam [MELOXICAM] Allergy Unknown ANAPHYLAXSI Verified 07/12/20 19:31 S Penicillins [PENICILLINS] Allergy Unknown Verified 07/12/20 19:31 avocado AdvReac Intermediate Swelling Verified 07/12/20 19:31 of Lip/Tongue/Throat peas AdvReac Intermediate Swelling Verified 07/12/20 19:31 of Lip/Tongue/Throat sulfite AdvReac Intermediate Migraine Verified 07/12/20 19:31 Review of Systems Review of Systems Narrative: All 12 point systems reviewed with the patient and are negative except otherwise documented. Exam Vital Signs (past 8 hours): - 01/08/22 17:14 01/08/22 17:18 01/08/22 17:29 Temperature 98.2 F Pulse Rate 107 H 93 H 89 Respiratory Rate 26 H 23 24 Blood Pressure 223/125 H Pulse Oximetry 86 L 97 96 Oxygen Delivery Method Room Air Nasal Cannula Nasal Cannula Oxygen Flow Rate 3 3 01/08/22 19:03 01/08/22 19:08 01/08/22 17:30 Temperature Pulse Rate 99 H 92 H 91 H Respiratory Rate 24 21 Blood Pressure 225/93 H Pulse Oximetry 96 97 Oxygen Delivery Method Room Air Oxygen Flow Rate 01/08/22 17:45 01/08/22 17:45 01/08/22 18:00 Temperature Pulse Rate 98 H 87 Respiratory Rate 48 H 26 H Blood Pressure 193/116 H Pulse Oximetry 96 97 Oxygen Delivery Method Oxygen Flow Rate 01/08/22 18:30 01/08/22 18:42 01/08/22 18:42 Temperature Pulse Rate 93 H 96 H Respiratory Rate 41 H 39 H Blood Pressure 187/104 H Pulse Oximetry 97 96 Oxygen Delivery Method Oxygen Flow Rate 01/08/22 19:00 01/08/22 19:01 01/08/22 19:01 Temperature Pulse Rate 90 88 Respiratory Rate 35 H 30 H Blood Pressure 225/93 H Pulse Oximetry 95 96 Oxygen Delivery Method Oxygen Flow Rate Oxygen Delivery Method Room Air Oxygen Flow Rate 3 Narrative Exam Narrative: General: Patient is a well-developed, well-nourished pleasant male, mildly ill appearing,relaxed, on no 02 at time of exam sating 96% on rm air, in no acute distress at this time. HEENT: Normocephalic, atraumatic, extraocular muscles intact, oral pharynx is clear and mucous membranes are dry. Neck is supple and symmetric, trachea is midline, no adenopathy, no thyroid enlargement, nontender, no masses palpated. Negative for JVD Chest: Normal AP diameter and contour without kyphoscoliosis, no nasal flaring, retractions, positive orthopnea, non- tachypneic, mildly labored breathing sitting up on side of bed. Lungs: Auscultation of all lung abreu- breath sounds are tight, decreased in bilateral bases, coarse, poor air exchange, rhonchi, exp wheezing throughout. Cardio: S1 & S2 mild tachy regular rate and rhythm without murmur, rubs, or gallops, no carotid bruit, no cardiac pulsations present. Abdomen: Soft nontender, negative for organomegaly, ascities, or masses. Bowel sounds are present in all 4 quadrants without guarding or rebound, no CVA tenderness. Musculoskeletal: Muscle strength and tone are equal within normal limits, no deformity, crepitus, effusions, cyanosis, clubbing or edema present. Full range of motion intact radial and pedal pulses are normal. Skin: Warm dry and intact without rashes, ulcerations or petechiae. Neuro: Alert and orientated x3, strength is +5/5 in all extremities, sensation to touch intact, no gross deficits noted of cranial nerves. Psych: Patient has a well-kept appearance, appropriate affect, mental status attitude thought context and judgment are appropriate for age. Objective Labs Result Diagrams: 01/08/22 17:21 01/08/22 17:21 Labs: Laboratory Results - last 24 hr 01/08/22 01/08/22 01/08/22 17:21 17:21 17:21 WBC 7.3 RBC 5.13 Hgb 15.4 Hct 44.0 MCV 85.8 MCH 29.9 MCHC 34.9 RDW 13.8 Plt Count 322 Neut % (Auto) 77.6 H Lymph % (Auto) 9.0 L [place] % (Auto) 6.8 Eos % (Auto) 5.7 H Baso % (Auto) 0.9 Neut # (Auto) 5700 Lymph # (Auto) 700 L [place] # (Auto) 500 Eos # (Auto) 400 Baso # (Auto) 100 ABG pH ABG pCO2 ABG pO2 ABG HCO3 ABG Total CO2 ABG O2 Saturation ABG Base Excess FiO2 Sodium 137 Potassium 3.8 Chloride 96 L Carbon Dioxide 33 H BUN 8 L Creatinine 0.94 Estimated GFR > 60 BUN/Creatinine Ratio 8.5 Glucose 110 Lactate 1.4 Calcium 9.6 Total Bilirubin 1.1 AST 62 H ALT 23 Alkaline Phosphatase 122 NT-Pro-B Natriuret Pep Total Protein 8.7 H Albumin 4.4 Globulin 4.3 H Albumin/Globulin Ratio 1.0 Procalcitonin Chlamy pneumoniae PCR Adenovirus (PCR) B. pertussis DNA (PCR) B.parapertussis DNA PCR Coronavirus OC43 (PCR) Coronavirus HKU1 (PCR) Coronavirus 229E (PCR) SARS-CoV-2 (PCR) Coronavirus NL63 (PCR) Human Metapneumovir PCR Influenza Type A (PCR) Influenza Type B (PCR) M. pneumoniae (PCR) Parainfluenza 1 (PCR) Parainfluenza 2 (PCR) Parainfluenza 3 (PCR) Parainfluenza 4 (PCR) RSV (PCR) Entero/Rhino (PCR) 01/08/22 01/08/22 01/08/22 17:21 17:21 17:21 WBC RBC Hgb Hct MCV MCH MCHC RDW Plt Count Neut % (Auto) Lymph % (Auto) [place] % (Auto) Eos % (Auto) Baso % (Auto) Neut # (Auto) Lymph # (Auto) [place] # (Auto) Eos # (Auto) Baso # (Auto) ABG pH ABG pCO2 ABG pO2 ABG HCO3 ABG Total CO2 ABG O2 Saturation ABG Base Excess FiO2 Sodium Potassium Chloride Carbon Dioxide BUN Creatinine Estimated GFR BUN/Creatinine Ratio Glucose Lactate Calcium Total Bilirubin AST ALT Alkaline Phosphatase NT-Pro-B Natriuret Pep 2270 H Total Protein Albumin Globulin Albumin/Globulin Ratio Procalcitonin 0.07 Chlamy pneumoniae PCR Adenovirus (PCR) B. pertussis DNA (PCR) B.parapertussis DNA PCR Coronavirus OC43 (PCR) Coronavirus HKU1 (PCR) Coronavirus 229E (PCR) SARS-CoV-2 (PCR) Negative Coronavirus NL63 (PCR) Human Metapneumovir PCR Influenza Type A (PCR) Influenza Type B (PCR) M. pneumoniae (PCR) Parainfluenza 1 (PCR) Parainfluenza 2 (PCR) Parainfluenza 3 (PCR) Parainfluenza 4 (PCR) RSV (PCR) Entero/Rhino (PCR) 01/08/22 01/08/22 17:21 20:07 WBC RBC Hgb Hct MCV MCH MCHC RDW Plt Count Neut % (Auto) Lymph % (Auto) [place] % (Auto) Eos % (Auto) Baso % (Auto) Neut # (Auto) Lymph # (Auto) [place] # (Auto) Eos # (Auto) Baso # (Auto) ABG pH 7.56 H ABG pCO2 36.1 ABG pO2 55 L ABG HCO3 32 H ABG Total CO2 33 H ABG O2 Saturation 92 L ABG Base Excess 10.0 H FiO2 21 Sodium Potassium Chloride Carbon Dioxide BUN Creatinine Estimated GFR BUN/Creatinine Ratio Glucose Lactate Calcium Total Bilirubin AST ALT Alkaline Phosphatase NT-Pro-B Natriuret Pep Total Protein Albumin Globulin Albumin/Globulin Ratio Procalcitonin Chlamy pneumoniae PCR Not detected Adenovirus (PCR) Not detected B. pertussis DNA (PCR) Not detected B.parapertussis DNA PCR Not detected Coronavirus OC43 (PCR) Not detected Coronavirus HKU1 (PCR) Not detected Coronavirus 229E (PCR) Not detected SARS-CoV-2 (PCR) Not detected Coronavirus NL63 (PCR) Not detected Human Metapneumovir PCR Not detected Influenza Type A (PCR) Not detected Influenza Type B (PCR) Not detected M. 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 Patient did not have edema on exam nor appear fluid overloaded. Troponin was unremarkable, pleuritic chest pain, dimer ordered. Patient admitted for observation for mild diuresis, improving blood pressure control, and restoring respiratory function. 1. Acute respiratory failure, metabolic alkalosis secondary to left systolic?congestive heart failure, exacerbation, acute on chronic, present on admission, active -patient O2 saturation 86% on room air in ED RR26, at time of admit 92% on 3LN/C, RR22- during exam pt improved was sating 96% on Rm air, RR 20 (2029) -at approximately 10:45 p.m. after the patient had been on the floor, he developed acute respiratory distress again requiring nasal cannula 3 L satting at 90% tripoding tachypneic RR 38, B/P 183/107, HR 102, significant increased work of breathing and distress, dimer came back only mildly elevated 573- ordered stat CTA to r/o PE, Bipap, transfer patient to ICU, methylprednisone 60 mg IV now. Metoprolol 5 mg IV Q 15 minutes max dose> 3 for SBP >180, DBP> 100, HR >110 sustained >30min. -repeat vitals BP 143/90, HR 73, RR 30, patient on BiPAP O2 saturation 99% Patient describes no precipitating event but has had progressive symptoms for 3 days with shortness breath, orthopnea, pleuritic chest pain, cough and difficulty sleeping, with no extremity edema. Chest x-ray noted mild cardiomegaly a possible pulmonary edema and CHF. Patient with Decreased coarse rhonchi and expiratory wheezing lung sounds, troponin 0.014 and a positive pro BNP at 2270 Patient received Lasix 40 mg IV in the emergency department, ordered Lasix 20 mg BID daily. ABG-noted metabolic alkalosis pH 7.56, PO2 55, HC03 of 32, T CO2 33 O2 sat 92% base excess 10, FiO2 of 21- on rm air. Trend troponins x3, Lipase, CMP, Mag, procalcitonin, TSH all within normal limits. Echocardiogram in the morning. Recommend patient be scheduled for outpatient stress test upon discharge, as we are unable to perform stress tests over the weekend. Last echo June 2019 noted left systolic heart failure EF 50-55%. 2. Hypertensive emergency in the setting of, Essential hypertension, acute on chronic, present on admission, active -Initial Blood pressures 223/125, 183/107 upon arrival, blood pressure minimally improved with diuresis 186/88. Patient has not taken his Coreg or losarten for 2 weeks or more. Patient was not give B/p meds in ED -ordered coreg & losarten dose on admit-B/P improved to 143/90 -PRN metoprolol 5 mg IV Q 15 minutes Max 3 doses as needed for SBP> 180, DBP> 100, HR> 110 sustained greater than 30 minutes -continue patient's Coreg and losartan -prescriptions to be provided upon discharge 3. Coronary artery disease, chronic, present on admission, active Twelve lead EKG shows sinus rhythm rate 87, with no ST or T-wave changes. Troponin on admission 0.014 and proBNP is found elevated at 2270. 4. Patient overweight as evidence by BMI of 30.1, acute on chronic, present on admission -patient is overweight may negatively affect his oxygen demand and respiratory function. -dietary consult placed regarding fluid restriction diet, low-sodium, dietary lifestyle changes and weight loss recommendations. Code status:DNR- per patient Surrogate decision maker: Sister Nelly Petty MAYELIN PCR:Negative COVID vaccination: Fully vaccinated DVT/VTE prophylaxis: Lovenox and SCDs Disposition: Patient admitted for observation initially to acute care, but after developing acute respiratory distress requiring BiPAP was moved to ICU observation, patient to be diuresed, uncontrolled noncompliant hypertension controlled, and echocardiogram tomorrow with outpatient scheduled stress test following discharge. Expected length of stay less than 2 midnight I have utilized all available immediate resources to obtain, update, or review the patient's current medications. I confirmed that the patient's advanced care plan is present, Code status is documented and/or surrogate decision maker is listed in the patient's medical record. Time Spent With Patient Critical Care time: I spent a total of [] minutes of critical care time on this patient's care today; this time is exclusive of procedural time.
[2022-01-08 20:57] LABS: Creatine Kinase 94 U/L (55-170)
[2022-01-08 21:10] LABS: Troponin I 0.014 ng/mL (0.01-0.034)
[2022-01-08] MEDS: carvediloL 12.5 MG TABLET PO (21:34)
[2022-01-08 21:37] LABS: D Dimer 573 ng/ml (<500)
[2022-01-08] MEDS: LOSARTAN 50 MG TABLET PO (21:39)
[2022-01-08] MEDS: predniSONE 20 MG TABLET 40 MG PO (21:39)
[2022-01-08 21:53] LABS: Cholesterol 149 mg/dL (140-199); HDL Cholesterol 57 mg/dL (40-60); LDL Cholesterol Calculated 78 mg/dL (<100); Lipase 283 U/L (23-300); Magnesium 2.3 mg/dL (1.6-2.3); Triglycerides 69 mg/dL (35-150)
[2022-01-08 22:14] LABS: Thyroid Stimulating Hormone 0.547 uIU/mL (0.47-4.68)
[2022-01-08] MEDS: HYDROCODONE/ACET 5/325 TABLET 1 TAB PO (22:34)
--- NOTE | 2022-01-08 22:54 | DI.CT.S_ITS ---
PROCEDURE: CT ANGIO CHEST PE PROTOCOL INDICATIONS: elevated dimer acute resp distress TECHNIQUE: After the administration of intravenous contrast, 2 mm thick sections acquired from the pulmonary apices to the posterior costophrenic angles. 3-dimensional maximum intensity projection (MIP) coronal and sagittal reformats were then acquired through the thorax. For radiation dose reduction, the following was used: automated exposure control, adjustment of mA and/or kV according to patient size. COMPARISON: [facility], CT, CT CHEST ABDOMEN PELVIS WITH CONTRAST, 12/04/2021, 16:14. [facility], CT, CT ANGIO CHEST PE PROTOCOL, 06/12/2019, 17:09. FINDINGS: Image quality: Excellent. Pulmonary arteries: Pulmonary arteries demonstrate no intraluminal filling defects to suggest central pulmonary embolism. There is enlargement of the pulmonary arteries, with the main pulmonary artery measuring up to 3.5 cm suggestive of pulmonary arterial hypertension. Lower Neck: No lymphadenopathy by size criteria. Thyroid: Visualized thyroid demonstrates no discrete nodules. Axillae: No lymphadenopathy by size criteria. Chest Wall: Unremarkable. Bones: Visualized osseous structures demonstrate no suspicious lesions. Lungs and Airways: No acute consolidation. There are new patchy ground-glass opacities within the right lower and middle lobes and, to a lesser extent, within the left lingula suggestive of an infectious or inflammatory process. There are few pulmonary nodules including: -right middle lobe 0.3 cm nodule (5/162), unchanged from prior study. -indistinct right lower lobe nodule measuring 0.6 cm (5/153), similar in size compared to the prior study. -indistinct subsolid medial right lower lobe nodule measuring up to 0.6 x 1.0 cm in transverse dimension (5/162), overall similar to the prior study. The trachea and central airways are patent. There is mild bronchial wall thickening and mucous plugging within the lung bases. Pleura: No pneumothorax or pleural effusions. Heart: Heart size is normal. No pericardial effusion. Thoracic Vessels: The thoracic aorta is normal in size. Mediastinum and Jessica: No lymphadenopathy by size criteria. Esophagus: No wall thickening. No hiatal hernia. Abdomen: Visualized upper abdomen demonstrates mild nodularity of the hepatic contour suggestive of cirrhosis. The gallbladder is surgically absent. IMPRESSION: 1. No evidence of pulmonary embolism. There is enlargement of the pulmonary arteries suggestive of pulmonary arterial hypertension. 2. Bilateral patchy ground-glass opacities with a basilar predominance on the right are nonspecific. The findings likely represent an infectious or inflammatory process such as atypical pneumonia or hypersensitivity pneumonitis. 3. Right middle and lower lobe nodules appear similar to the prior study of 12/04/2021. Consider follow-up in 3 6 months to demonstrate stability or resolution. Dictated by: Jose Whitmore M.D. on 01/09/2022 at 1:30 Approved by: Jose Whitmore M.D. on 01/09/2022 at 1:41
[2022-01-08] MEDS: methylPREDNISolone 125 MG/2 ML VIAL 60 MG IV (23:22)
[2022-01-08] MEDS: HYDROMORPHONE 1 MG INJ IV (23:28)
[2022-01-09] VITALS (19 sets, daily range): BP systolic 166–199; BP diastolic 81–135; PULSE 68–93; RESP 12–30; TEMP 31–36.7; O2SAT 92–99
--- NOTE | 2022-01-09 00:33 | PC.NURSE ---
Addendum entered by Nelly Ribera R.N. 01/09/22 06:45: Patient was on Bi-pap until 0300, RR 20s unlabored, SpO2 >95%. He was restless for the rest of the night, my back hurts and I just can't get comfortable Tylenol, [place], and IV Dilaudid given per prn. 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 Original Note: 0010-Patient transferred from floor to ICU room 231 after going to have CTA. A/O x3, sitting up tri-pod in bed, RR 30s labored, RA SpO2 98%, placed on Bi-pap 25%, 17/5, ins/exp rhonchi/wheeze heard throughout with only ins wheeze Rt anterior. SR, BP 170/92.
[2022-01-09] MEDS: ACETAMINOPHEN 325 MG TABLET 650 MG PO ×2 (02:06→07:40)
[2022-01-09 02:34] LABS: Troponin I 0.016 ng/mL (0.01-0.034)
[2022-01-09] MEDS: SODIUM CHLORIDE 0.9% FLUSH 10 ML IV ×3 (03:07→20:11)
[2022-01-09] MEDS: METOPROLOL TARTRATE 5 MG/5 ML INJ IV (03:07)
[2022-01-09] MEDS: HYDROMORPHONE 1 MG INJ IV ×2 (04:06→16:54)
[2022-01-09] MEDS: HYDROCODONE/ACET 5/325 TABLET 1 TAB PO ×3 (04:49→20:06)
[2022-01-09 05:16] LABS: Add Manual Diff / Slide Review NO; Basophils Absolute Auto 0 /uL (0-100); Basophils Percent Auto 0.6 % (0-2); Eosinophils Absolute Auto 0 /uL (0-450); Eosinophils Percent Auto 0.1 % (2-4); Hematocrit 44.9 % (41-53); Hemoglobin 15.7 g/dL (13.5-17.5); Lymphocytes Absolute Auto 400 /uL (1100-4500); Lymphocytes Percent Auto 7.3 % (25-40); Mean Corpuscular Hemoglobin 29.9 PG (26-34); Mean Corpuscular Volume 85.4 fL (80-100); Monocytes Absolute Auto 0 /uL (0-900); Monocytes Percent Auto 0.9 % (3-14); Neutrophils Absolute Auto 4700 /uL (1500-7000); Neutrophils Percent Auto 91.1 % (50-75); Platelet Count 341 X10^3/uL (150-400); Red Blood Cell Count 5.25 X10^6/uL (4.5-5.9); Red Cell Distribution Width 13.6 % (11.6-14.8); White Blood Cell Count 5.1 X10^3/uL (4.5-11.0)
[2022-01-09 05:58] LABS: Alanine Aminotransferase 22 IU/L (<50); Albumin 4.3 g/dL (3.5-5.0); Alkaline Phosphatase 117 U/L (38-126); Aspartate Aminotransferase 56 IU/L (17-59); BUN Creatinine Ratio 10.9 (6-22); Bilirubin Total 1.3 mg/dL (0.2-1.3); Blood Urea Nitrogen 11 mg/dL (9-20); Calcium 9.8 mg/dL (8.4-10.2); Carbon Dioxide 31 mmol/L (22-32); Chloride 96 mmol/L (98-107); Estimated Glomerular Filt Rate > 60 mL/min (>60); Globulin 4.2 g/dL (1.7-4.1); Glucose 143 mg/dL (80-110); HEMOLYSIS 16 (0-50); Potassium 4.2 mmol/L (3.4-5.1); Sodium 137 mmol/L (137-145); Total Protein 8.5 g/dL (6.3-8.2)
[2022-01-09 06:06] LABS: NT-proBNP (BNP-Adult 18+) 2140 pg/mL (<125)
[2022-01-09] MEDS: LORazepam 1 MG TABLET 2 MG PO (06:12)
[2022-01-09] MEDS: FUROSEMIDE 20 MG/2 ML VIAL IV (06:37)
[2022-01-09] MEDS: LOSARTAN 50 MG TABLET PO ×2 (06:37→20:04)
--- NOTE | 2022-01-09 07:18 | PM.PN.1 ---
Subjective Subjective Date Patient Seen: 01/09/22 Time Patient Seen: 10:00 Interval history: Patient very sleepy but oriented x3. Says he barely slept overnight due to the steroids he got. BP currently 160's systolic. Exam Vital Signs (past 8 hours): - 01/09/22 00:00 01/09/22 01:00 01/09/22 02:00 Temperature 97.6 F Pulse Rate 74 68 74 Respiratory Rate 17 13 23 Blood Pressure 170/92 H 166/93 H 183/97 H Pulse Oximetry 99 96 94 Oxygen Delivery Method Fraction of Inspired Oxygen 0.25 0.25 01/09/22 03:00 01/09/22 04:00 01/09/22 00:00 Temperature Pulse Rate 83 83 Respiratory Rate 17 17 Blood Pressure 188/107 H 170/92 H Pulse Oximetry 96 Oxygen Delivery Method Fraction of Inspired Oxygen 0.25 01/09/22 02:00 01/09/22 04:00 01/09/22 04:00 Temperature 97.5 F L Pulse Rate 80 Respiratory Rate 15 Blood Pressure 188/107 H 199/116 H Pulse Oximetry 96 Oxygen Delivery Method Room Air BiPAP Fraction of Inspired Oxygen 0.25 01/09/22 05:00 01/09/22 06:00 01/09/22 06:37 Temperature Pulse Rate 87 85 88 Respiratory Rate 20 24 Blood Pressure 178/85 H 199/112 H 199/112 H Pulse Oximetry 97 97 Oxygen Delivery Method Fraction of Inspired Oxygen Fraction of Inspired Oxygen 0.25 Oxygen Delivery Method Room Air,BiPAP Oxygen Flow Rate 2 Narrative Exam Narrative: General: Patient is a well-developed, well-nourished pleasant male, somnolent HEENT: Normocephalic, atraumatic, extraocular muscles intact, oral pharynx is clear and mucous membranes are dry. Neck is supple and symmetric, trachea is midline, no adenopathy, no thyroid enlargement, nontender, no masses palpated. Negative for JVD Chest: Normal AP diameter and contour without kyphoscoliosis, no nasal flaring, retractions, positive orthopnea, non- tachypneic, mildly labored breathing sitting up on side of bed. Lungs: Auscultation of all lung abreu- breath sounds are tight, decreased in bilateral bases, coarse, poor air exchange, rhonchi, exp wheezing throughout. Cardio: S1 & S2 mild tachy regular rate and rhythm without murmur, rubs, or gallops, no carotid bruit, no cardiac pulsations present. Abdomen: Soft nontender, negative for organomegaly, ascities, or masses. Bowel sounds are present in all 4 quadrants without guarding or rebound, no CVA tenderness. Musculoskeletal: Muscle strength and tone are equal within normal limits, no deformity, crepitus, effusions, cyanosis, clubbing or edema present. Full range of motion intact radial and pedal pulses are normal. Skin: Warm dry and intact without rashes, ulcerations or petechiae. Neuro: Alert and orientated x3, strength is +5/5 in all extremities, sensation to touch intact, no gross deficits noted of cranial nerves. Psych: Patient has a well-kept appearance, appropriate affect, mental status attitude thought context and judgment are appropriate for age. Objective Labs Result Diagrams: 01/09/22 04:40 01/09/22 04:40 Labs: Laboratory Results - last 24 hr 01/08/22 01/08/22 01/08/22 17:21 17:21 17:21 WBC 7.3 RBC 5.13 Hgb 15.4 Hct 44.0 MCV 85.8 MCH 29.9 MCHC 34.9 RDW 13.8 Plt Count 322 Neut % (Auto) 77.6 H Lymph % (Auto) 9.0 L Metcalfe % (Auto) 6.8 Eos % (Auto) 5.7 H Baso % (Auto) 0.9 Neut # (Auto) 5700 Lymph # (Auto) 700 L Metcalfe # (Auto) 500 Eos # (Auto) 400 Baso # (Auto) 100 D-Dimer ABG pH ABG pCO2 ABG pO2 ABG HCO3 ABG Total CO2 ABG O2 Saturation ABG Base Excess FiO2 Sodium 137 Potassium 3.8 Chloride 96 L Carbon Dioxide 33 H BUN 8 L Creatinine 0.94 Estimated GFR > 60 BUN/Creatinine Ratio 8.5 Glucose 110 Lactate 1.4 Calcium 9.6 Magnesium Total Bilirubin 1.1 AST 62 H ALT 23 Alkaline Phosphatase 122 Total Creatine Kinase CK-MB (CK-2) CK-MB (CK-2) Rel Index Troponin I NT-Pro-B Natriuret Pep Total Protein 8.7 H Albumin 4.4 Globulin 4.3 H Albumin/Globulin Ratio 1.0 Triglycerides Cholesterol LDL Cholesterol, Calc HDL Cholesterol Lipase Procalcitonin TSH Nasal Screen MRSA (PCR) Chlamy pneumoniae PCR Adenovirus (PCR) B. pertussis DNA (PCR) B.parapertussis DNA PCR Coronavirus OC43 (PCR) Coronavirus HKU1 (PCR) Coronavirus 229E (PCR) SARS-CoV-2 (PCR) Coronavirus NL63 (PCR) Human Metapneumovir PCR Influenza Type A (PCR) Influenza Type B (PCR) M. pneumoniae (PCR) Parainfluenza 1 (PCR) Parainfluenza 2 (PCR) Parainfluenza 3 (PCR) Parainfluenza 4 (PCR) RSV (PCR) Entero/Rhino (PCR) 01/08/22 01/08/22 01/08/22 17:21 17:21 17:21 WBC RBC Hgb Hct MCV MCH MCHC RDW Plt Count Neut % (Auto) Lymph % (Auto) Metcalfe % (Auto) Eos % (Auto) Baso % (Auto) Neut # (Auto) Lymph # (Auto) Metcalfe # (Auto) Eos # (Auto) Baso # (Auto) D-Dimer ABG pH ABG pCO2 ABG pO2 ABG HCO3 ABG Total CO2 ABG O2 Saturation ABG Base Excess FiO2 Sodium Potassium Chloride Carbon Dioxide BUN Creatinine Estimated GFR BUN/Creatinine Ratio Glucose Lactate Calcium Magnesium Total Bilirubin AST ALT Alkaline Phosphatase Total Creatine Kinase CK-MB (CK-2) CK-MB (CK-2) Rel Index Troponin I NT-Pro-B Natriuret Pep 2270 H Total Protein Albumin Globulin Albumin/Globulin Ratio Triglycerides Cholesterol LDL Cholesterol, Calc HDL Cholesterol Lipase Procalcitonin 0.07 TSH Nasal Screen MRSA (PCR) Chlamy pneumoniae PCR Adenovirus (PCR) B. pertussis DNA (PCR) B.parapertussis DNA PCR Coronavirus OC43 (PCR) Coronavirus HKU1 (PCR) Coronavirus 229E (PCR) SARS-CoV-2 (PCR) Negative Coronavirus NL63 (PCR) Human Metapneumovir PCR Influenza Type A (PCR) Influenza Type B (PCR) M. pneumoniae (PCR) Parainfluenza 1 (PCR) Parainfluenza 2 (PCR) Parainfluenza 3 (PCR) Parainfluenza 4 (PCR) RSV (PCR) Entero/Rhino (PCR) 01/08/22 01/08/22 01/08/22 17:21 17:21 17:21 WBC RBC Hgb Hct MCV MCH MCHC RDW Plt Count Neut % (Auto) Lymph % (Auto) Metcalfe % (Auto) Eos % (Auto) Baso % (Auto) Neut # (Auto) Lymph # (Auto) Metcalfe # (Auto) Eos # (Auto) Baso # (Auto) D-Dimer ABG pH ABG pCO2 ABG pO2 ABG HCO3 ABG Total CO2 ABG O2 Saturation ABG Base Excess FiO2 Sodium Potassium Chloride Carbon Dioxide BUN Creatinine Estimated GFR BUN/Creatinine Ratio Glucose Lactate Calcium Magnesium 2.3 Total Bilirubin AST ALT Alkaline Phosphatase Total Creatine Kinase CK-MB (CK-2) CK-MB (CK-2) Rel Index Troponin I NT-Pro-B Natriuret Pep Total Protein Albumin Globulin Albumin/Globulin Ratio Triglycerides 69 Cholesterol 149 LDL Cholesterol, Calc 78 HDL Cholesterol 57 Lipase Procalcitonin TSH 0.547 Nasal Screen MRSA (PCR) Chlamy pneumoniae PCR Not detected Adenovirus (PCR) Not detected B. pertussis DNA (PCR) Not detected B.parapertussis DNA PCR Not detected Coronavirus OC43 (PCR) Not detected Coronavirus HKU1 (PCR) Not detected Coronavirus 229E (PCR) Not detected SARS-CoV-2 (PCR) Not detected Coronavirus NL63 (PCR) Not detected Human Metapneumovir PCR Not detected Influenza Type A (PCR) Not detected Influenza Type B (PCR) Not detected M. pneumoniae (PCR) Not detected Parainfluenza 1 (PCR) Not detected Parainfluenza 2 (PCR) Not detected Parainfluenza 3 (PCR) Not detected Parainfluenza 4 (PCR) Not detected RSV (PCR) Not detected Entero/Rhino (PCR) Not detected 01/08/22 01/08/22 01/08/22 17:21 17:21 20:05 WBC RBC Hgb Hct MCV MCH MCHC RDW Plt Count Neut % (Auto) Lymph % (Auto) Metcalfe % (Auto) Eos % (Auto) Baso % (Auto) Neut # (Auto) Lymph # (Auto) Metcalfe # (Auto) Eos # (Auto) Baso # (Auto) D-Dimer 573 H ABG pH ABG pCO2 ABG pO2 ABG HCO3 ABG Total CO2 ABG O2 Saturation ABG Base Excess FiO2 Sodium Potassium Chloride Carbon Dioxide BUN Creatinine Estimated GFR BUN/Creatinine Ratio Glucose Lactate Calcium Magnesium Total Bilirubin AST ALT Alkaline Phosphatase Total Creatine Kinase 94 CK-MB (CK-2) TNP CK-MB (CK-2) Rel Index TNP Troponin I 0.014 NT-Pro-B Natriuret Pep Total Protein Albumin Globulin Albumin/Globulin Ratio Triglycerides Cholesterol LDL Cholesterol, Calc HDL Cholesterol Lipase 283 Procalcitonin TSH Nasal Screen MRSA (PCR) Chlamy pneumoniae PCR Adenovirus (PCR) B. pertussis DNA (PCR) B.parapertussis DNA PCR Coronavirus OC43 (PCR) Coronavirus HKU1 (PCR) Coronavirus 229E (PCR) SARS-CoV-2 (PCR) Coronavirus NL63 (PCR) Human Metapneumovir PCR Influenza Type A (PCR) Influenza Type B (PCR) M. pneumoniae (PCR) Parainfluenza 1 (PCR) Parainfluenza 2 (PCR) Parainfluenza 3 (PCR) Parainfluenza 4 (PCR) RSV (PCR) Entero/Rhino (PCR) 01/08/22 01/09/22 01/09/22 20:07 02:00 02:00 WBC RBC Hgb Hct MCV MCH MCHC RDW Plt Count Neut % (Auto) Lymph % (Auto) Metcalfe % (Auto) Eos % (Auto) Baso % (Auto) Neut # (Auto) Lymph # (Auto) Metcalfe # (Auto) Eos # (Auto) Baso # (Auto) D-Dimer ABG pH 7.56 H ABG pCO2 36.1 ABG pO2 55 L ABG HCO3 32 H ABG Total CO2 33 H ABG O2 Saturation 92 L ABG Base Excess 10.0 H FiO2 21 Sodium Potassium Chloride Carbon Dioxide BUN Creatinine Estimated GFR BUN/Creatinine Ratio Glucose Lactate Calcium Magnesium Total Bilirubin AST ALT Alkaline Phosphatase Total Creatine Kinase CK-MB (CK-2) CK-MB (CK-2) Rel Index Troponin I 0.016 NT-Pro-B Natriuret Pep Total Protein Albumin Globulin Albumin/Globulin Ratio Triglycerides Cholesterol LDL Cholesterol, Calc HDL Cholesterol Lipase Procalcitonin TSH Nasal Screen MRSA (PCR) Negative for mrsa Chlamy pneumoniae PCR Adenovirus (PCR) B. pertussis DNA (PCR) B.parapertussis DNA PCR Coronavirus OC43 (PCR) Coronavirus HKU1 (PCR) Coronavirus 229E (PCR) SARS-CoV-2 (PCR) Coronavirus NL63 (PCR) Human Metapneumovir PCR Influenza Type A (PCR) Influenza Type B (PCR) M. pneumoniae (PCR) Parainfluenza 1 (PCR) Parainfluenza 2 (PCR) Parainfluenza 3 (PCR) Parainfluenza 4 (PCR) RSV (PCR) Entero/Rhino (PCR) 01/09/22 01/09/22 04:40 04:40 WBC 5.1 RBC 5.25 Hgb 15.7 Hct 44.9 MCV 85.4 MCH 29.9 MCHC 35.0 RDW 13.6 Plt Count 341 Neut % (Auto) 91.1 H Lymph % (Auto) 7.3 L Metcalfe % (Auto) 0.9 L Eos % (Auto) 0.1 L Baso % (Auto) 0.6 Neut # (Auto) 4700 Lymph # (Auto) 400 L Metcalfe # (Auto) 0 Eos # (Auto) 0 Baso # (Auto) 0 D-Dimer ABG pH ABG pCO2 ABG pO2 ABG HCO3 ABG Total CO2 ABG O2 Saturation ABG Base Excess FiO2 Sodium 137 Potassium 4.2 Chloride 96 L Carbon Dioxide 31 BUN 11 Creatinine 1.01 Estimated GFR > 60 BUN/Creatinine Ratio 10.9 Glucose 143 H Lactate Calcium 9.8 Magnesium Total Bilirubin 1.3 AST 56 ALT 22 Alkaline Phosphatase 117 Total Creatine Kinase CK-MB (CK-2) CK-MB (CK-2) Rel Index Troponin I NT-Pro-B Natriuret Pep 2140 H Total Protein 8.5 H Albumin 4.3 Globulin 4.2 H Albumin/Globulin Ratio 1.0 Triglycerides Cholesterol LDL Cholesterol, Calc HDL Cholesterol Lipase Procalcitonin TSH Nasal Screen MRSA (PCR) Chlamy pneumoniae PCR Adenovirus (PCR) B. pertussis DNA (PCR) B.parapertussis DNA PCR Coronavirus OC43 (PCR) Coronavirus HKU1 (PCR) Coronavirus 229E (PCR) SARS-CoV-2 (PCR) Coronavirus NL63 (PCR) Human Metapneumovir PCR Influenza Type A (PCR) Influenza Type B (PCR) M. pneumoniae (PCR) Parainfluenza 1 (PCR) Parainfluenza 2 (PCR) Parainfluenza 3 (PCR) Parainfluenza 4 (PCR) RSV (PCR) Entero/Rhino (PCR) [facility] Medical History Chronic neck and back pain Coronary artery disease Hypertension Left hemiparesis Right rib fracture Stroke Systolic congestive 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, NYHA class 1 Surgical History History of cholecystectomy History of laparotomy History of shoulder surgery History of surgery on wrist Hx of fusion of cervical spine Family History Father Parkinsons Mother Cancer Brother Cancer Sister No significant medical problems Social History household members: other Smoking Status: Never smoker alcohol intake: current substance use type: does not use Assessment & Plan Assessment & Plan narrative: Octaviano Jj is a 66-year-old male with a history significant for coronary artery disease, hypertension, 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 # Acute respiratory failure, metabolic alkalosis secondary to left systolic?congestive heart failure, exacerbation, acute on chronic, present on admission, active -patient O2 saturation 86% on room air in ED RR 26, at time of admit 92% on 3LN/C, RR22 -Chest x-ray noted mild cardiomegaly a possible pulmonary edema and CHF. -pro BNP at 2270 -Lasix 40 mg BID daily -ABG-noted metabolic akalosis pH 7.56, PO2 55, HC03 of 32 -limited Echo ordered. Last echo June 2019 noted normal EF 50-55%. # hypertensive urgency, present on admission, active -Initial blood pressures 223/125, 183/107 upon arrival, blood pressure minimally improved with diuresis 186/88. -Patient has not taken his Coreg or losartan for 2 weeks or more. -PRN metoprolol 5 mg IV -continue patient's Coreg increased at 25mg BID from 12.5 due to elevated HR and increase losartan to 100mg daily form 50 # coronary artery disease, chronic, present on admission, active Twelve lead EKG shows sinus rhythm rate 87, with no ST or T-wave changes. Troponin on admission 0.014 and proBNP is found elevated at 2270. No chest pain and trop not rising # patient overweight as evidence by BMI of 30.1, acute on chronic, present on admission -patient is overweight may negatively affect his oxygen demand and respiratory function. -dietary consult placed regarding fluid restriction diet, low-sodium, dietary lifestyle changes and weight loss recommendations. Code status: DNR/DNI Surrogate decision maker: Sister Nelly Petty COVID PCR:Negative COVID vaccination: Fully vaccinated DVT/VTE prophylaxis: Lovenox and SCDs Dispo: Likely dc to home on 01/10. Time Spent With Patient Critical Care time: I spent a total of [] minutes of critical care time on this patient's care today; this time is exclusive of procedural time. Quality VTE Deep Vein Thrombosis/Pulmonary Embolism Present on Admission: No
[2022-01-09] MEDS: ENOXAPARIN 40 MG/0.4 ML SYRINGE SUBCUT (08:06)
[2022-01-09] MEDS: FUROSEMIDE 40 MG/4 ML VIAL 20 MG IV (08:06)
[2022-01-09] MEDS: carvediloL 12.5 MG TABLET 25 MG PO ×2 (08:07→20:05)
--- NOTE | 2022-01-09 09:02 | CM.DANOTE ---
DCP Assessment: Payor: Medicare & Medicaid PCP: Shankar Huitron MD Pt is a 66 y.o. M who presented to the ER with complaints of SOB and productive cough. Pt is COVID vaccinated. Pt has PMH of CAD, HTN, CVA, cardiomegaly, and L systolic CHF. Pt admitted to the ICU for acute respiratory failure and further evaluation and management of other symptoms. DCP met with pt this morning to discuss discharge needs. Pt sitting up in chair eating breakfast. DCP introduced herself and role. Pt states that he lives in an apartment with his friend, Arianne. Pt verified that [facility] is pt POA. Pt denies use of DME's and states that he does not drive POV but relies on Arianne for transportation. Pt denies using home O2. Pt states that his neighbor, Jose L, will be picking him up from the hospital upon discharge. Pt declines any resources at this time. White board updated. Instructed to call . Pt thankful for discussion. DCP spoke to RN and confirmed that there is no concern for any discharge needs at this time. Pt is mobilizing well per RN. P: Once pt is medically stable for discharge, pt to discharge home via neighbor POV. Maria Del Carmen Moore RN/ALCON Discharge Planning/Care Management CM Discharge Assessment Start: 01/09/22 08:54 Freq: Status: Active Protocol: Document 01/09/22 08:54 CHELSIE (Rec: 01/09/22 08:56 [email or web address] [id number]) Discharge Planning Assessment Assigned High Density Finishing Operator Maria Del Carmen Moore RN/ALCON Advance Directives? Yes: DPOA for HC and POA Advance Directives on File Yes History Provided By Patient,Medical Record Prior Living Arrangements House Household Members other Type of transporation used prior to Relies on Others admit Independent with ADL's Yes Is patient alert and oriented? Yes Caregiver for Another No Discharge Plan Home Transportation Arrangement Neighbor POV Whiteboard Updated in Patient Room with Yes name and ext. # of High Density Finishing Operator Comment Instructed to call Review Status In Process Please Provide Date Initial DC 01/09/22 Assessment Was Performed Next Review Type Continued Stay Review
[2022-01-09 09:18] LABS: Troponin I 0.013 ng/mL (0.01-0.034)
--- NOTE | 2022-01-09 11:42 | DI.ECHO.S_ITS ---
Interpretation Summary 1) Mildly to moderately increased left ventricular thickness (concentric) with normal size and moderately to severely reduced systolic function (EF 30-35%). 2) Normal right ventricular size and function. 3) No significant valvular abnormalities grossly. While the doppler not done across the aortic valve, suspicion for hemodynamic significant aortic valve disease is low. 4) Compared to the Echo done 07/13/2020, LVEF has decreased from 50-55% to 30- 35% on this study. Procedure: A two-dimensional transthoracic echocardiogram with color flow and Doppler was performed. The study quality was technically adequate. Comparison is made with the echocardiogram of 07/13/2020. The patient had occasional PVCs during the exam. Segment of bigeminy noted. The patient was in sinus rhythm with heart rates between 76-88 bpm during the exam. Left Ventricle: The left ventricle is normal in size. There is mild-moderate concentric left ventricular hypertrophy. The ejection fraction is estimated to be 30-35%. There is moderate to severe global hypokinesis of the left ventricle. Right Ventricle: The right ventricle is normal in size and function. Atria: The left atrial size is normal. Right atrial size is normal. Mitral Valve: There is mild mitral regurgitation. Aortic Valve: The aortic valve is trileaflet. There is minimally reduced leaflet mobility. No doppler done across the aortic valve. Tricuspid Valve: There is a trace or physiologic amount of tricuspid regurgitation. Pulmonary artery pressures cannot be estimated because of the lack of a measurable TR jet velocity but the IVC suggests a CVP of around 8 mmHg. Great Vessels: The IVC is dilated (diameter is greater than 2.1 cm) yet it collapses greater than 50% with a sniff. This suggests a right atrial pressure of 8 mm Hg. Pericardium/ Pleura There is no pericardial effusion. There is no pleural effusion. MMode/2D Measurements & Calculations LVIDd: 4.4 cm LA A2 area: 23.8 cm2 LVIDs: 3.9 cm LA A4 area: 16.1 cm2 FS: 11.1 % LA length (vol): 5.4 cm EPSS: 1.8 cm LA vol: 60.1 ml IVSd: 1.4 cm LA vol index: 30.3 ml/m2 LVPWd: 1.3 cm LV pina. diameter/BSA (cm/m^2): 2.2 LV sys. diameter/BSA (cm/m^2): 2.0 RA long axis: 5.9 cm RVD1 (basal): 2.5 cm RA area: 17.7 cm2 RVD2 (mid): 2.4 cm RA vol: 45.2 ml TAPSE: 2.1 cm RA : 22.8 ml/m2 IVC diam: 1.8 cm Reading Physician:12:51 PM
[2022-01-09] MEDS: FUROSEMIDE 20 MG/2 ML VIAL 40 MG IV (16:54)
[2022-01-10] VITALS (7 sets, daily range): BP systolic 139–183; BP diastolic 76–104; PULSE 65–79; RESP 18–23; TEMP 36.1–36.7; O2SAT 94–97
[2022-01-10] MEDS: HYDROMORPHONE 1 MG INJ IV ×2 (04:22→17:31)
[2022-01-10 05:31] LABS: BUN Creatinine Ratio 21.6 (6-22); Blood Urea Nitrogen 22 mg/dL (9-20); Calcium 9.3 mg/dL (8.4-10.2); Carbon Dioxide 32 mmol/L (22-32); Chloride 95 mmol/L (98-107); Estimated Glomerular Filt Rate > 60 mL/min (>60); Glucose 121 mg/dL (80-110); HEMOLYSIS < 15 (0-50); Potassium 3.1 mmol/L (3.4-5.1); Sodium 136 mmol/L (137-145)
[2022-01-10] MEDS: HYDROCODONE/ACET 5/325 TABLET 1 TAB PO ×3 (06:55→19:20)
[2022-01-10] MEDS: FUROSEMIDE 20 MG/2 ML VIAL 40 MG IV ×2 (08:44→17:31)
[2022-01-10] MEDS: SODIUM CHLORIDE 0.9% FLUSH 10 ML IV ×2 (08:45→21:58)
[2022-01-10] MEDS: LOSARTAN 50 MG TABLET 100 MG PO (08:45)
[2022-01-10] MEDS: carvediloL 12.5 MG TABLET 25 MG PO ×2 (08:45→21:57)
[2022-01-10] MEDS: SPIRONOLACTONE 25 MG TABLET PO (08:45)
[2022-01-10] MEDS: POTASSIUM CHLORIDE 20 MEQ TAB 40 MEQ PO ×2 (08:45→12:50)
[2022-01-10] MEDS: ACETAMINOPHEN 325 MG TABLET 650 MG PO ×2 (08:45→17:31)
[2022-01-10] MEDS: ENOXAPARIN 40 MG/0.4 ML SYRINGE SUBCUT (08:46)
[2022-01-10] MEDS: CALCIUM CARBONATE 500 MG TAB 1000 MG PO (08:50)
[2022-01-10] MEDS: ONDANSETRON 4 MG/2 ML INJ IV (10:27)
[2022-01-10] MEDS: AZITHROMYCIN 250 MG TABLET 500 MG PO (14:40)
[2022-01-10] MEDS: cefTRIAXone 1,000 MG in SODIUM CHLORIDE 0.9% 100 ML 200 MG IV (14:40)
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
[2022-01-11] VITALS: BP 152/74; PULSE 62; RESP 18; TEMP 36.2; O2SAT 97
[2022-01-11] MEDS: HYDROCODONE/ACET 5/325 TABLET 1 TAB PO ×2 (01:31→09:29)
[2022-01-11] MEDS: HYDROMORPHONE 1 MG INJ IV (03:58)
[2022-01-11 04:00] VITALS: BP 190/99; PULSE 67; RESP 26; TEMP 36.3; O2SAT 94
[2022-01-11 05:36] LABS: BUN Creatinine Ratio 24.3 (6-22); Blood Urea Nitrogen 26 mg/dL (9-20); Calcium 9.4 mg/dL (8.4-10.2); Carbon Dioxide 31 mmol/L (22-32); Chloride 98 mmol/L (98-107); Estimated Glomerular Filt Rate > 60 mL/min (>60); Glucose 118 mg/dL (80-110); HEMOLYSIS 23 (0-50); Potassium 3.4 mmol/L (3.4-5.1); Sodium 139 mmol/L (137-145)
[2022-01-11 06:00] VITALS: BP 168/92
--- NOTE | 2022-01-11 06:49 | PC.NURSE ---
End of shift note. Care of patient [id number]. Patient alert and oriented, c/o back pain, given Roundup 5/325 Q6h, continued to c/o back pain, HTN 190/99, given Dilaudid 1mg IV with good pain relief. Using urinal at bedside, and is up to BR during the day to void per report. Has been SB 50s- SR 60s.
[2022-01-11 07:41] VITALS: BP 168/92; TEMP 36.8
[2022-01-11] MEDS: carvediloL 12.5 MG TABLET 25 MG PO (09:30)
[2022-01-11] MEDS: SPIRONOLACTONE 25 MG TABLET PO (09:30)
[2022-01-11] MEDS: POTASSIUM CHLORIDE 20 MEQ TAB 40 MEQ PO (09:30)
[2022-01-11] MEDS: LOSARTAN 50 MG TABLET 100 MG PO (09:30)
[2022-01-11] MEDS: ENOXAPARIN 40 MG/0.4 ML SYRINGE SUBCUT (09:31)
[2022-01-11] MEDS: FUROSEMIDE 20 MG/2 ML VIAL 40 MG IV (09:31)
[2022-01-11] MEDS: AZITHROMYCIN 250 MG TABLET 500 MG PO (09:39)
[2022-01-11] MEDS: SODIUM CHLORIDE 0.9% FLUSH 10 ML IV (09:39)
--- NOTE | 2022-01-11 11:50 | PC.NURSE ---
Patient eager for discharge to home. IV dc'd intact. Patient states understanding and has no further questions or concerns at this time. Patient to follow up with his PCP, and importance of follow up reinforced. Escorted out via wheelchair with all his belongings.
--- NOTE | 2022-01-11 13:43 | CM.DPNOTE ---
DCP Note: Orders for discharge. Friend will pick patient up. Nursing discharged. Maryanne Alston RN/DCP
--- NOTE | 2022-01-11 14:31 | PM.DS.1 ---
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 3 days of worsening shortness of breath.?On arrival in ED patient presented with hypertensive emergency in acute respiratory failure blood pressure 223/125, HR 107, R 26 with O2 saturation of 86% on room air.? Patient denies history of COPD, asthma, or smoking.? Patient does note that he has been out of his blood pressure medications Coreg and losartan for 1-2 weeks. The patient reports fatigue, exertional dyspnea and orthopnea with headache and neck pain but this is been chronic related to cervical fusion, as well as bilateral chest/ back pain that is exacerbated from coughing & deep inspiration.? He has had a productive cough of clear sputum, and has induced vomiting trying to clear secretions. He also complains of all over body aches, chills, mild nasal drainage, no sore throat, ear discomfort, no recent illness, no extremity edema, denies fever.? He has had multiple surgeries bilateral shoulders and numerous abdominal surgeries for hernia repair.? ? He has had no recent sick contacts.? He has chest pain without palpitations and shortness of breath with cough as previously noted.?? No new abdominal pain, nausea, or? vomiting (not r/t cough) and has no diarrhea or constipation.? His last bowel movement was this morning.? He reports no difficulty urinating.? He has a residual left-sided weakness from a stroke 10 years ago and is experience numerous falls. May have sprained his right ankle from a fall a few days ago, no swelling or bruising noted on inital exam. Discharge Providers Provider Date of admission: 01/08/22 20:53 Discharge Date: 01/11/22 Primary care physician: Shankar Huitron PA-C Consults: 01/08/22 19:52 Consult to Respiratory Therapy Evaluate & Treat Comment: PRN acute resp failure Physician Instructions: Evaluate and treat 01/08/22 19:53 Consult to Discharge Planning Routine Comment: out pt stress test/cardio/pulm f/u 01/08/22 19:59 Consult to Dietitian, Adult Routine Comment: Reason For Exam: BMI 33.8, CHF Discharge provider: Yasir Rashid MD Summary Hospital Course Discharge Diagnosis: 1. Hypertensive urgency 2. Bacterial pneumonia 3. Acute hypoxic respiratory failure 4. History of CVA with left-sided weakness 5. Coronary artery disease 6. Lung nodules, stable Hospital Course: Patient was admitted for hypertensive urgency and probable pneumonia. Initial BP is 223/125 and he was restarted on Coreg and losartan and also given IV Lasix. His echo back in June 2019 showed EF 50-55%. He also had some hypoxia probably from pneumonia rather than CHF. Patient had clinical improvement of cough and dyspnea. Blood pressures have improved to the 160s systolic and 90s diastolic. He may need additional medication such as diuretic if blood pressures remain elevated as outpatient. He will follow-[facility] at [facility]. Status at Discharge Cognitive/behavioral status at discharge: oriented Functional status at discharge: independent ambulation Overall status at discharge: patient is progressing back to baseline Time Spent with Patient Time spent: Greater than 30 minutes Exam Vital Signs (past 8 hours): - 01/11/22 07:41 01/11/22 08:30 Temperature 98.2 F Blood Pressure 168/92 H Oxygen Delivery Method Room Air Fraction of Inspired Oxygen 0.25 Oxygen Delivery Method Room Air Oxygen Flow Rate 0 Narrative Exam Narrative: General: Alert, slight cough Lungs: Clear Heart: Regular rhythm Extremities: No edema Objective Labs Result Diagrams: 01/09/22 04:40 01/11/22 05:07 Labs: Laboratory Results - last 24 hr 01/11/22 05:07 Sodium 139 Potassium 3.4 Chloride 98 Carbon Dioxide 31 BUN 26 H Creatinine 1.07 Estimated GFR > 60 BUN/Creatinine Ratio 24.3 H Glucose 118 H Calcium 9.4 PFSH Medical History Chronic neck and back pain Coronary artery disease Hypertension Left hemiparesis Right rib fracture Stroke Systolic congestive 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, NYHA class 1 Surgical History History of cholecystectomy History of laparotomy History of shoulder surgery History of surgery on wrist Hx of fusion of cervical spine Family History Father Parkinsons Mother Cancer Brother Cancer Sister No significant medical problems Social History household members: other Smoking Status: Never smoker alcohol intake: current substance use type: does not use Discharge Plan Discharge Plan Patient Disposition: Home Provider Discharge Comment: You were treated for severe hypertension and pneumonia. Make sure you have BP meds refilled through PCP so you don't run out. Nursing Discharge Comment: d/c after gets po azithromycin dose Discharge orders & Medications Prescriptions: New azithromycin [Zithromax Z-Nima] 250 mg Tablet 500 mg PO DAILY Qty: 2 0RF Rx Instructions: next dose due 01/12 AM cefdinir 300 mg capsule 300 mg PO BID Qty: 20 0RF carvedilol 25 mg tablet 25 mg PO BID Qty: 60 0RF Rx Instructions: must administer with a meal/food losartan 100 mg tablet 100 mg PO DAILY Qty: 30 0RF Continued acetaminophen 500 mg Tablet 1,000 mg PO Q6H PRN (Reason: Pain (Scale Score 1-3)) hydrocodone-acetaminophen 5-325 mg tablet 1 tab PO Q6H PRN (Reason: pain) Qty: 10 0RF Discontinued carvedilol 25 mg Tablet 12.5 mg PO BID losartan 50 mg tablet 50 mg PO DAILY Follow up/Referrals: Shankar Huitron PA-C [Primary Care Provider] - (*APPT on Tuesday at 2:30pm with Shankar Huitron P.A-C [phone]) Diet/Activity/Treatments Diet: Diet as Tolerated Discharge Data Primary Care Provider: Shankar Huitron Quality VTE Deep Vein Thrombosis/Pulmonary Embolism Present on Admission: No
[2022-01-14 17:08] LABS: Aldosterone/Renin Activity Rat >52.1 (0.0-30.0); Plama Renin, LC/MS/MS <0.167 ng/mL/hr (0.167-5.380)
== END 2022-01-11 11:35 | disposition home or self-care (01) | DRG 177 ==
LOC: ED 19:43 → AC 20:54 → ICU 23:04
PROVIDERS: Student in an Organized Health Care Education/Training Program; Admitting Provider Nurse Practitioner Family; Emergency Provider Emergency Medicine; Family Provider Family Medicine; PCP Physician Assistant; Referring Provider Emergency Medicine; Visit Provider Nurse Practitioner Family
DX: J15.6 Pneumonia due to other Gram-negative bacteria (principal); I50.23 Acute on chronic systolic (congestive) heart failure; J96.01 Acute respiratory failure with hypoxia; E87.3 Alkalosis; I11.0 Hypertensive heart disease with heart failure; I16.0 Hypertensive urgency; I25.10 Atherosclerotic heart disease of native coronary artery without angina pectoris; E66.3 Overweight; Z68.29 Body mass index [BMI] 29.0-29.9, adult; Z66 Do not resuscitate; Z20.822 Contact with and (suspected) exposure to COVID-19
CPT/HCPCS: 36415; 36600; 71046; 71275; 80048; 80053; 80061; 82088; 82550; 82805; 83605; 83690; 83735; 83880; 84145; 84244; 84443; 84484; 85025; 85379; 87070; 87077; 87205; 87633; 87635; 87797; 93005; 93010; 93307; 94640; 94660; 96374; 99284; 99285; C9803; J0696; J1170; J1650; J1940; J2405; J2930; Q9967

== ENCOUNTER 2022-02-06 11:00 | Emergency (ER) | payer MEDICARE, MEDICAID, OTHER, SELFPAY ==
[2022-01-08 21:03] VITALS: BMI 30.1
[2022-01-09 02:00] VITALS: PULSE 71; RESP 12; O2SAT 98
[2022-02-06] VITALS (13 sets, daily range): BP systolic 99–145; BP diastolic 51–68; PULSE 68–97; RESP 10–38; TEMP 36.4; O2SAT 92–99; BMI 29.0
--- NOTE | 2022-02-06 11:12 | DI.RAD.S_ITS ---
PROCEDURE: XR CHEST 1V INDICATIONS: chest pain TECHNIQUE: One view of the chest was acquired. COMPARISON: [facility], CT, CT ANGIO CHEST PE, 02/01/2022, 19:59. [facility], CR, XR CHEST 1 VIEW, 01/31/2022, 22:22. [facility], CT, CT ANGIO CHEST PE PROTOCOL, 01/08/2022, 23:18. [facility], CR, XR CHEST 2V, 01/08/2022, 17:28. FINDINGS: Surgical changes and devices: None. Lungs and pleura: On this semiupright portable chest examination, no large pneumothorax or large pleural effusions are seen. No focal infiltrates are seen. Mediastinum: Mediastinal contours appear normal. Heart size is normal. Bones and chest wall: No suspicious bony lesions. Age-appropriate bony degenerative changes are seen. There is a remote distal right clavicle fracture. Overlying soft tissues appear unremarkable. IMPRESSION: Limited portable chest examination, without a significant cardiopulmonary abnormality identified. Dictated by: Hugo Lagos M.D. on 02/06/2022 at 10:42 Approved by: Hugo Lagos M.D. on 02/06/2022 at 10:43
[2022-02-06 11:24] LABS: Add Manual Diff / Slide Review NO; Basophils Absolute Auto 100 /uL (0-100); Eosinophils Absolute Auto 200 /uL (0-450); Eosinophils Percent Auto 3.3 % (2-4); Hematocrit 31.4 % (41-53); Hemoglobin 10.1 g/dL (13.5-17.5); Lymphocytes Absolute Auto 700 /uL (1100-4500); Lymphocytes Percent Auto 13.1 % (25-40); Mean Corpuscular Hemoglobin 30.7 PG (26-34); Mean Corpuscular Volume 95.9 fL (80-100); Monocytes Absolute Auto 600 /uL (0-900); Monocytes Percent Auto 10.4 % (3-14); Neutrophils Absolute Auto 4000 /uL (1500-7000); Neutrophils Percent Auto 72.2 % (50-75); Platelet Count 235 X10^3/uL (150-400); Red Blood Cell Count 3.27 X10^6/uL (4.5-5.9); Red Cell Distribution Width 15.7 % (11.6-14.8); White Blood Cell Count 5.5 X10^3/uL (4.5-11.0)
[2022-02-06 11:43] LABS: Alanine Aminotransferase 14 IU/L (<50); Albumin 3.4 g/dL (3.5-5.0); Albumin Globulin Ratio 0.9 (1.0-2.8); Alkaline Phosphatase 126 U/L (38-126); Aspartate Aminotransferase 32 IU/L (17-59); BUN Creatinine Ratio 24.1 (6-22); Bilirubin Total 0.3 mg/dL (0.2-1.3); Blood Urea Nitrogen 38 mg/dL (9-20); Calcium 8.3 mg/dL (8.4-10.2); Carbon Dioxide 30 mmol/L (22-32); Chloride 103 mmol/L (98-107); Creatine Kinase 44 U/L (55-170); Estimated Glomerular Filt Rate 48 mL/min (>60); Globulin 3.6 g/dL (1.7-4.1); Glucose 99 mg/dL (80-110); HEMOLYSIS < 15 (0-50); Lipase 168 U/L (23-300); Magnesium 2.2 mg/dL (1.6-2.3); Potassium 4.2 mmol/L (3.4-5.1); Sodium 140 mmol/L (137-145)
[2022-02-06 11:55] LABS: Troponin I 0.048 ng/mL (0.01-0.034)
[2022-02-06 14:51] LABS: Troponin I < 0.012 ng/mL (0.01-0.034)
--- NOTE | 2022-02-06 15:53 | ED_ITS ---
HPI - Syncope General Chief Complaint: Syncope Stated Complaint: passed out while driving Time Seen by Provider: 02/06/22 13:59 Source: patient and family Mode of arrival: Family Vehicle Limitations: no limitations History of Present Illness HPI narrative: Patient presents with syncope. He was in a car with his significant other, having sandwich. He apparently passed out. He arrives here with no chest pain, no palpitations or dyspnea. He has no confusion, no numbness or weakness. He has no history of stroke or TIA. He has a history of CHF, he was discharged 2 days ago after CHF exacerbation respiratory failure. He is having no difficulty breathing, he has no peripheral edema. He feels well at this time, back to his baseline, apparently. Related Data Home Medications Medication Instructions Recorded Confirmed acetaminophen 500 mg tablet 1,000 mg PO Q6H PRN Pain (Scale 11/21/18 01/08/22 Score 1-3) Previous Rx's Medication Instructions Recorded hydrocodone 5 mg-acetaminophen 325 1 tab PO Q6H PRN pain #10 tabs 06/20/21 mg tablet azithromycin 250 mg tablet 500 mg PO DAILY #2 tabs 01/11/22 (Zithromax Z-Nima) carvedilol 25 mg tablet 25 mg PO BID #60 tabs 01/11/22 cefdinir 300 mg capsule 300 mg PO BID #20 caps 01/11/22 losartan 100 mg tablet 100 mg PO DAILY #30 tabs 01/11/22 Allergies Allergy/AdvReac Type Severity Reaction Status Date / Time NSAIDS (Non-Steroidal Allergy Severe Swelling Verified 02/06/22 11:21 Anti-Inflamma of Lip/Tongue/Throat chocolate flavor Allergy Intermediate Swelling Verified 02/06/22 11:21 of Lip/Tongue/Throat peanut Allergy Intermediate Swelling Verified 02/06/22 11:21 of Lip/Tongue/Throat strawberry Allergy Intermediate Swelling Verified 02/06/22 11:21 of Lip/Tongue/Throat celecoxib [From CELEBREX] Allergy Unknown Verified 02/06/22 11:21 lisinopril [LISINOPRIL] Allergy Unknown Verified 02/06/22 11:21 meloxicam [MELOXICAM] Allergy Unknown ANAPHYLAXSI Verified 02/06/22 11:21 S Penicillins [PENICILLINS] Allergy Unknown Verified 02/06/22 11:21 avocado AdvReac Intermediate Swelling Verified 02/06/22 11:21 of Lip/Tongue/Throat peas AdvReac Intermediate Swelling Verified 02/06/22 11:21 of Lip/Tongue/Throat sulfite AdvReac Intermediate Migraine Verified 02/06/22 11:21 Review of Systems Constitutional Constitutional: Denies chills, Denies fatigue and Denies fever(s) Eyes Eyes: Denies blurry vision, Denies change in vision, Denies eye discharge and Denies loss of vision ENT Ears, Nose, Mouth, and Throat: Denies vertigo, Denies dizziness, Denies neck pain, Denies sinus pain and Denies sore throat Cardiovascular Cardiovascular: Denies chest pain, Denies pedal edema, Denies irregular heart rhythm and Denies dyspnea Respiratory Respiratory: Denies cough and Denies dyspnea Gastrointestinal Gastrointestinal: Denies abdominal pain and Denies nausea Musculoskeletal Musculoskeletal: Denies back pain, Denies myalgias, Denies neck pain and Denies numbness Integumentary/Breasts Skin/Breast: Denies lesions Neurologic Neurologic: Denies confusion, Denies vertigo, Denies dizziness, Denies loss of vision, Denies memory loss and Denies numbness Psychiatric Psychiatric: Denies confusion and Denies memory loss Endocrine Endocrine: Denies fatigue Hematologic/Lymphatic On Anticoagulants: No Patient History Medical History Chronic neck and back pain Coronary artery disease Hypertension Left hemiparesis Right rib fracture Stroke Systolic congestive 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, NYHA class 1 Surgical History History of cholecystectomy History of laparotomy History of shoulder surgery History of surgery on wrist Hx of fusion of cervical spine Family History Father Parkinsons Mother Cancer Brother Cancer Sister No significant medical problems Social History household members: other Smoking Status: Never smoker alcohol intake: current substance use type: does not use Smoking Status: Never smoker alcohol intake frequency: holidays/special occasions only Substance Use Type: marijuana Exam Initial Vital Signs Initial Vital Signs: Vital Signs Temperature 97.5 F L 02/06/22 11:12 Pulse Rate 73 02/06/22 11:12 Respiratory Rate 19 02/06/22 11:12 Blood Pressure 99/51 L 02/06/22 11:12 Pulse Oximetry 98 02/06/22 11:12 Oxygen Delivery Method 02/06/22 11:12 Const General: cooperative, comfortable, well groomed and No acute distress [facility] Head: normocephalic and atraumatic Mouth: oral mucosae normal Throat: posterior oropharynx normal Eyes General: Yes appearance normal, both eyes and all related structures Pupils: PERRL EOM: EOM intact bilaterally and No nystagmus Neck Neck: normal visual inspection, full ROM, No lymphadenopathy and No tender Chest Chest: normal inspection of the chest Resp Auscultation: clear to auscultation bilaterally Cardio Rate: regular rate Rhythm: regular rhythm Heart Sounds: S1 normal, S2 normal and no murmurs GI Inspection: normal to inspection Palpation: soft and No tender Auscultation: normal bowel sounds Back/Spine/Pelvis Back: normal to inspection Skin General: no rashes or lesions noted Neuro General: patient alert, patient awake, patient oriented x3 and no focal motor deficits Cranial Nerves: CN's II-XI intact bilaterally and No nystagmus Coordination: [id number] test normal Extrem General: normal to inspection, no pedal edema and no calf tenderness Course Course Course Narrative: The patient has been asymptomatic since arrival. Neurology exam is normal. Cardiac monitoring and cardiac workup is normal. There is no evidence of acute coronary syndrome or CHF. He is advised to follow-up with his doctor regarding his recent hospital admission, as well as this ER visit. Orders Ordered: ED Orders 02/06/22 11:15 Complete Blood Count AUTO DIFF Stat Comprehensive Metabolic Panel Stat Lipase Stat Magnesium Stat Troponin & CK Cardiac Panel Stat 02/06/22 11:16 EKG-12 Lead Routine 02/06/22 11:22 EKG-12 Lead Stat 02/06/22 14:21 BNP [NT-proBNP (BNP-Adult 18+)] Stat Troponin I Stat Vital Signs Vital signs: Vital Signs - 8 hr 02/06/22 13:47 02/06/22 13:48 02/06/22 13:48 Pulse Rate 69 Respiratory Rate Blood Pressure 131/64 Pulse Oximetry 92 98 02/06/22 13:50 02/06/22 13:50 02/06/22 14:00 Pulse Rate 68 Respiratory Rate 27 H Blood Pressure 134/66 142/68 H Pulse Oximetry 99 02/06/22 14:00 02/06/22 14:30 02/06/22 14:30 Pulse Rate 68 70 Respiratory Rate 38 H 29 H Blood Pressure 145/64 H Pulse Oximetry 98 99 02/06/22 15:00 02/06/22 15:00 02/06/22 15:30 Pulse Rate 68 Respiratory Rate 25 H Blood Pressure 128/66 135/62 Pulse Oximetry 98 02/06/22 15:30 02/06/22 16:00 02/06/22 16:00 Pulse Rate 72 74 Respiratory Rate 30 H 25 H Blood Pressure 130/61 Pulse Oximetry 97 97 02/06/22 16:30 02/06/22 16:30 02/06/22 17:00 Pulse Rate 71 Respiratory Rate 17 Blood Pressure 141/63 H 144/65 H Pulse Oximetry 98 02/06/22 17:00 02/06/22 17:30 02/06/22 17:30 Pulse Rate 75 71 Respiratory Rate 25 H 10 L Blood Pressure 136/65 Pulse Oximetry 97 97 MDM - Syncope Lab Data Result diagrams: 02/06/22 11:15 02/06/22 11:15 Labs: Lab Results 02/06/22 02/06/22 02/06/22 Range/Units 11:15 11:15 14:21 WBC 5.5 (4.5-11.0) X10^3/uL RBC 3.27 L (4.5-5.9) X10^6/uL Hgb 10.1 L (13.5-17.5) g/dL Hct 31.4 L (41-53) % MCV 95.9 (80-100) fL MCH 30.7 (26-34) PG MCHC 32.0 (30-36) % RDW 15.7 H (11.6-14.8) % Plt Count 235 (150-400) X10^3/uL Neut % (Auto) 72.2 (50-75) % Lymph % (Auto) 13.1 L (25-40) % [place] % (Auto) 10.4 (3-14) % Eos % (Auto) 3.3 (2-4) % Baso % (Auto) 1.0 (0-2) % Neut # (Auto) 4000 (8251-8703) /uL Lymph # (Auto) 700 L (3236-2946) /uL [place] # (Auto) 600 (0-900) /uL Eos # (Auto) 200 (0-450) /uL Baso # (Auto) 100 (0-100) /uL Sodium 140 (137-145) mmol/L Potassium 4.2 (3.4-5.1) mmol/L Chloride 103 (98-107) mmol/L Carbon Dioxide 30 (22-32) mmol/L BUN 38 H (9-20) mg/dL Creatinine 1.58 H (0.66-1.25) mg/dL Estimated GFR 48 L (>60) mL/min BUN/Creatinine Ratio 24.1 H (6-22) Glucose 99 (80-110) mg/dL Calcium 8.3 L (8.4-10.2) mg/dL Magnesium 2.2 (1.6-2.3) mg/dL Total Bilirubin 0.3 (0.2-1.3) mg/dL AST 32 (17-59) IU/L ALT 14 (<50) IU/L Alkaline Phosphatase 126 (38-126) U/L Total Creatine Kinase 44 L (55-170) U/L CK-MB (CK-2) TNP CK-MB (CK-2) Rel Index TNP Troponin I 0.048 H < 0.012 (0.01-0.034) ng/mL NT-Pro-B Natriuret Pep (<125) pg/mL Total Protein 7.0 (6.3-8.2) g/dL Albumin 3.4 L (3.5-5.0) g/dL Globulin 3.6 (1.7-4.1) g/dL Albumin/Globulin Ratio 0.9 L (1.0-2.8) Lipase 168 (23-300) U/L 02/06/22 Range/Units 14:21 WBC (4.5-11.0) X10^3/uL RBC (4.5-5.9) X10^6/uL Hgb (13.5-17.5) g/dL Hct (41-53) % MCV (80-100) fL MCH (26-34) PG MCHC (30-36) % RDW (11.6-14.8) % Plt Count (150-400) X10^3/uL Neut % (Auto) (50-75) % Lymph % (Auto) (25-40) % [place] % (Auto) (3-14) % Eos % (Auto) (2-4) % Baso % (Auto) (0-2) % Neut # (Auto) (8450-9700) /uL Lymph # (Auto) (5720-6966) /uL [place] # (Auto) (0-900) /uL Eos # (Auto) (0-450) /uL Baso # (Auto) (0-100) /uL Sodium (137-145) mmol/L Potassium (3.4-5.1) mmol/L Chloride (98-107) mmol/L Carbon Dioxide (22-32) mmol/L BUN (9-20) mg/dL Creatinine (0.66-1.25) mg/dL Estimated GFR (>60) mL/min BUN/Creatinine Ratio (6-22) Glucose (80-110) mg/dL Calcium (8.4-10.2) mg/dL Magnesium (1.6-2.3) mg/dL Total Bilirubin (0.2-1.3) mg/dL AST (17-59) IU/L ALT (<50) IU/L Alkaline Phosphatase (38-126) U/L Total Creatine Kinase (55-170) U/L CK-MB (CK-2) CK-MB (CK-2) Rel Index Troponin I (0.01-0.034) ng/mL NT-Pro-B Natriuret Pep 435 H (<125) pg/mL Total Protein (6.3-8.2) g/dL Albumin (3.5-5.0) g/dL Globulin (1.7-4.1) g/dL Albumin/Globulin Ratio (1.0-2.8) Lipase (23-300) U/L Imaging Data Chest x-ray: Radiologist's Impression: No obvious abnormalities ECG Data Attestation: I personally reviewed and interpreted this ECG as follows: (Normal sinus rhythm rate 73 beats per minute. Normal intervals. Nonspecific T-wave abnormalities. No ectopy.) Discharge Plan Departure Patient Disposition: Home Clinical Impression: Syncope and collapse Instructions: DI for Syncope in Adults (Fainting) Activity Restrictions/Additional Instructions: No specific reason for your passing out episode has been discovered. Continue your current medications. Follow-up with your doctor to review your recent hospitalization and this ER v isit. Return here as needed. Prescriptions: No Action azithromycin [Zithromax Z-Nima] 250 mg Tablet 500 mg PO DAILY Qty: 2 0RF Rx Instructions: next dose due 01/12 AM cefdinir 300 mg capsule 300 mg PO BID Qty: 20 0RF carvedilol 25 mg tablet 25 mg PO BID Qty: 60 0RF Rx Instructions: must administer with a meal/food losartan 100 mg tablet 100 mg PO DAILY Qty: 30 0RF acetaminophen 500 mg Tablet 1,000 mg PO Q6H PRN (Reason: Pain (Scale Score 1-3)) hydrocodone-acetaminophen 5-325 mg tablet 1 tab PO Q6H PRN (Reason: pain) Qty: 10 0RF Referrals: Shankar Huitron PA-C [Primary Care Provider] - Visit Report Forms: Patient Portal/API
[2022-02-06 16:30] LABS: NT-proBNP (BNP-Adult 18+) 435 pg/mL (<125)
== END 2022-02-06 17:59 | disposition home or self-care (01) ==
PROVIDERS: Emergency Provider Emergency Medicine; Family Provider Family Medicine; PCP Physician Assistant
DX: R55 Syncope and collapse (principal); I50.9 Heart failure, unspecified
CPT/HCPCS: 36415; 71045; 80053; 82550; 83690; 83735; 83880; 84484; 85025; 93005; 99284

== ENCOUNTER 2022-07-22 13:31 | Emergency (ER) | payer MEDICARE, MEDICAID, OTHER, SELFPAY ==
[2022-01-08 21:03] VITALS: BMI 30.1
[2022-01-09 02:00] VITALS: PULSE 71; RESP 12; O2SAT 98
[2022-07-22] VITALS (8 sets, daily range): BP systolic 186–225; BP diastolic 91–109; PULSE 71–98; RESP 14–18; TEMP 36.7–36.8; O2SAT 97–100; BMI 29.0
--- NOTE | 2022-07-22 13:42 | DI.RAD.S_ITS ---
PROCEDURE: XR CHEST 1V INDICATIONS: abd pain TECHNIQUE: One view of the chest was acquired. COMPARISON: [facility], CR, XR CHEST 1V, 02/06/2022, 11:27. FINDINGS: Surgical changes and devices: None. Lungs and pleura: Lungs are clear. No pleural effusions or pneumothorax. Mediastinum: Mediastinal contours appear normal. Heart size is normal. Bones and chest wall: No suspicious bony lesions. Overlying soft tissues appear unremarkable. IMPRESSION: No acute cardiopulmonary pathology. Dictated by: Jaime Dong M.D. on 07/22/2022 at 13:37 Approved by: Jaime Dong M.D. on 07/22/2022 at 13:39
[2022-07-22] MEDS: SODIUM CHLORIDE 0.9% 500 ML 1000 ML IV (13:54)
[2022-07-22] MEDS: METOCLOPRAMIDE 10 MG/2 ML INJ IV (13:54)
[2022-07-22 14:10] LABS: Add Manual Diff / Slide Review NO; Basophils Absolute Auto 100 /uL (0-100); Basophils Percent Auto 0.7 % (0-2); Eosinophils Absolute Auto 0 /uL (0-450); Eosinophils Percent Auto 0.1 % (2-4); Hematocrit 43.9 % (41-53); Hemoglobin 15.1 g/dL (13.5-17.5); Lymphocytes Absolute Auto 500 /uL (1100-4500); Lymphocytes Percent Auto 6.5 % (25-40); Mean Corpuscular HGB Conc 34.3 % (30-36); Mean Corpuscular Volume 81.7 fL (80-100); Monocytes Absolute Auto 500 /uL (0-900); Monocytes Percent Auto 6.8 % (3-14); Neutrophils Absolute Auto 6700 /uL (1500-7000); Neutrophils Percent Auto 85.9 % (50-75); Platelet Count 330 X10^3/uL (150-400); Red Blood Cell Count 5.38 X10^6/uL (4.5-5.9); White Blood Cell Count 7.7 X10^3/uL (4.5-11.0)
[2022-07-22 14:22] LABS: Alanine Aminotransferase 24 IU/L (<50); Albumin 5.1 g/dL (3.5-5.0); Albumin Globulin Ratio 1.2 (1.0-2.8); Alkaline Phosphatase 144 U/L (38-126); Aspartate Aminotransferase 37 IU/L (17-59); BUN Creatinine Ratio 24.2 (6-22); Bilirubin Total 1.7 mg/dL (0.2-1.3); Blood Urea Nitrogen 23 mg/dL (9-20); Calcium 9.8 mg/dL (8.4-10.2); Carbon Dioxide 24 mmol/L (22-32); Chloride 100 mmol/L (98-107); Estimated Glomerular Filt Rate > 60 mL/min (>60); Globulin 4.2 g/dL (1.7-4.1); Glucose 121 mg/dL (80-110); HEMOLYSIS < 15 (0-50); Lipase 601 U/L (23-300); Sodium 138 mmol/L (137-145); Total Protein 9.3 g/dL (6.3-8.2)
[2022-07-22 14:34] LABS: Troponin I < 0.012 ng/mL (0.01-0.034)
[2022-07-22] MEDS: HYDROMORPHONE 1 MG INJ IV (15:25)
--- NOTE | 2022-07-22 15:44 | DI.CT.S_ITS ---
PROCEDURE: CT ABDOMEN PELVIS W CON INDICATIONS: abd pain/n/v/pancreatitis TECHNIQUE: After the administration of intravenous contrast, axial sections acquired from the lung bases to the pubic symphysis. Coronal and sagittal reformats were performed. For radiation dose reduction, the following was used: automated exposure control, adjustment of mA and/or kV according to patient size. COMPARISON: [facility], CT, CT ABDOMEN PELVIS W CON, 07/12/2020, 20:10. [facility], CT, ABDOMEN/PELVIS WITH CONTRAST, 03/09/2011, 11:56. FINDINGS: Image quality: Excellent. Lung bases: Unremarkable. Heart: Mild cardiomegaly. ABDOMEN: Liver: Unremarkable. Gallbladder: Status post cholecystectomy. Biliary ducts: Unremarkable. Pancreas: Unremarkable. Spleen: Unremarkable. Adrenal Glands: Unremarkable. Kidneys and Ureters: Unremarkable. Stomach and Bowel: Stomach, small bowel loops, and colon are unremarkable. Peritoneum: No abnormal intraperitoneal fluid. No free air. Ventral Wall: Postsurgical changes of prior ventral hernia repair. Abdominal Nodes: No retroperitoneal or mesenteric adenopathy by size criteria. Vessels: Scattered atherosclerotic calcifications of the abdominal aorta and iliac vessels without aneurysmal dilatation. The inferior vena cava appears patent. PELVIS: Pelvic Organs: Unremarkable. Bladder: Unremarkable. Pelvic Nodes: No enlarged lymph nodes. Miscellaneous: No inguinal hernias are seen. Bones: No acute vertebral body compression fractures. Multilevel spondylitic changes throughout the imaged spine. No suspicious osseous lesions. IMPRESSION: CT abdomen and pelvis without acute abnormalities. Specifically, no evidence for pancreatitis. Other chronic findings as above. Dictated by: Jayant Nugent M.D. on 07/22/2022 at 17:03 Approved by: Jayant Nugent M.D. on 07/22/2022 at 17:09
[2022-07-22] MEDS: carvediloL 12.5 MG TABLET 25 MG PO (18:22)
[2022-07-22] MEDS: LOSARTAN 50 MG TABLET 100 MG PO (18:23)
[2022-07-22] MEDS: AMLODIPINE 5 MG TABLET PO (18:23)
[2022-07-22] MEDS: OXYCODONE/ACETAMINOPHEN 5/325 TABLET 1 TAB PO (18:23)
--- NOTE | 2022-07-22 18:57 | PC.NURSE ---
BP 225/109 physician aware prior to d/c. Pt given BP meds and RX.
--- NOTE | 2022-07-24 22:21 | ED_ITS ---
HPI - Nausea/Vomiting/Diarrhea General Chief complaint: Nausea/Vomiting/Diarrhea Stated complaint: N/V couple days Time Seen by Provider: 07/22/22 13:32 Source: patient and EMS Mode of arrival: EMS History of Present Illness HPI Narrative: 67-year-old male presenting with nausea, vomiting, and diarrhea in the setting recent contact with similar symptoms. Patient's developed similar symptoms after eating a tuna sandwich, patient's concern for food poisoning. Patient had persistent symptoms with nausea, vomiting, and diarrhea since eating a sandwich 2 days ago. No measured fevers. Patient also reports that he is out of his bl ood pressure medications in his not taking his blood pressure medications for several months. Related Data Home Medications Medication Instructions Recorded Confirmed acetaminophen 500 mg tablet 1,000 mg PO Q6H PRN Pain (Scale 11/21/18 01/08/22 Score 1-3) amlodipine 5 mg tablet 5 mg PO BID 07/22/22 07/22/22 Previous Rx's Medication Instructions Recorded hydrocodone 5 mg-acetaminophen 325 1 tab PO Q6H PRN pain #10 tabs 06/20/21 mg tablet azithromycin 250 mg tablet 500 mg PO DAILY #2 tabs 01/11/22 (Zithromax Z-Nima) carvedilol 25 mg tablet 25 mg PO BID #60 tabs 01/11/22 cefdinir 300 mg capsule 300 mg PO BID #20 caps 01/11/22 losartan 100 mg tablet 100 mg PO DAILY #30 tabs 01/11/22 amlodipine 5 mg tablet 5 mg PO BID #30 tabs 07/22/22 carvedilol 25 mg tablet 25 mg PO BID #30 tabs 07/22/22 losartan 100 mg tablet 100 mg PO DAILY #30 tabs 07/22/22 oxycodone 5 mg capsule 5 mg PO Q8H PRN pain #10 caps 07/22/22 Allergies Allergy/AdvReac Type Severity Reaction Status Date / Time NSAIDS (Non-Steroidal Allergy Severe Swelling Verified 07/22/22 13:49 Anti-Inflamma of Lip/Tongue/Throat chocolate flavor Allergy Intermediate Swelling Verified 07/22/22 13:49 of Lip/Tongue/Throat peanut Allergy Intermediate Swelling Verified 07/22/22 13:49 of Lip/Tongue/Throat strawberry Allergy Intermediate Swelling Verified 07/22/22 13:49 of Lip/Tongue/Throat celecoxib [From CELEBREX] Allergy Unknown Verified 07/22/22 13:49 lisinopril [LISINOPRIL] Allergy Unknown Verified 07/22/22 13:49 meloxicam [MELOXICAM] Allergy Unknown ANAPHYLAXSI Verified 07/22/22 13:49 S Penicillins [PENICILLINS] Allergy Unknown Verified 07/22/22 13:49 avocado AdvReac Intermediate Swelling Verified 07/22/22 13:49 of Lip/Tongue/Throat peas AdvReac Intermediate Swelling Verified 07/22/22 13:49 of Lip/Tongue/Throat sulfite AdvReac Intermediate Migraine Verified 07/22/22 13:49 Patient History Medical History Chronic neck and back pain Coronary artery disease Hypertension Left hemiparesis Right rib fracture Stroke Systolic congestive 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, NYHA class 1 Surgical History History of cholecystectomy History of laparotomy History of shoulder surgery History of surgery on wrist Hx of fusion of cervical spine Family History Father Parkinsons Mother Cancer Brother Cancer Sister No significant medical problems Social History household members: other Smoking Status: Never smoker alcohol intake: current substance use type: does not use Smoking Status: Never smoker alcohol intake frequency: holidays/special occasions only Substance Use Type: marijuana Exam Narrative Exam Narrative: Vitals reviewed. Nursing note reviewed Constitutional: interactive HENT: Moist mucous membranes EYES: No scleral icterus NECK: no masses CV: Well perfused peripherally, no cyanosis present PULM: Unlabored respirations, symmetric chest rise ABD: Non-distended MS: No gross deformities, no asymmetric edema noted SKIN: Warm and dry. PSYCH: Appropriate affect NEURO: Follows simple commands, moves extremities, interactive with exam Initial Vital Signs Initial Vital Signs: Vital Signs Temperature 98.2 F 07/22/22 13:43 Pulse Rate 78 07/22/22 13:43 Respiratory Rate 18 07/22/22 13:43 Blood Pressure 195/98 H 07/22/22 13:43 Pulse Oximetry 100 07/22/22 13:43 Oxygen Delivery Method Room Air 07/22/22 13:43 Course Orders Ordered: Discontinued Medications Amlodipine Besylate (Amlodipine 5 Mg Tablet) 5 mg PO NOW ONE Stop: 07/22/22 17:54 Last Admin: 07/22/22 18:23 Dose: 5 mg Documented By: JOSÉ MIGUEL Carvedilol (Carvedilol 12.5 Mg Tablet) 25 mg PO NOW ONE Stop: 07/22/22 17:54 Last Admin: 07/22/22 18:22 Dose: 25 mg Documented By: JOSÉ MIGUEL Hydromorphone HCl (Hydromorphone 1 Mg Inj) 1 mg IV NOW ONE Stop: 07/22/22 15:18 Last Admin: 07/22/22 15:25 Dose: 1 mg Documented By: MEG Sodium Chloride (Normal Saline 0.9%) 500 mls @ 1,000 mls/hr IV BOLUS ONE Stop: 07/22/22 14:11 Last Infusion: 07/22/22 15:15 Dose: 0 mls/hr Documented By: Admin: 07/22/22 13:54 Dose: 1,000 mls/hr Documented By: CHRISTOPHER Losartan Potassium (Losartan 50 Mg Tablet) 100 mg PO NOW ONE Stop: 07/22/22 17:54 Last Admin: 07/22/22 18:23 Dose: 100 mg Documented By: JOSÉ MIGUEL Metoclopramide HCl (Metoclopramide 10 Mg/2 Ml Inj) 10 mg IV NOW ONE Stop: 07/22/22 13:43 Last Admin: 07/22/22 13:54 Dose: 10 mg Documented By: CHRISTOPHER Oxycodone/Acetaminophen (Oxycodone/Acetaminophen 5/325 Tablet) 1 tab PO NOW ONE Stop: 07/22/22 17:54 Last Admin: 07/22/22 18:23 Dose: 1 tab Documented By: JOSÉ MIGUEL MDM - Nausea/Vomiting/Diarrhea Lab Data 07/22/22 14:00 07/22/22 14:00 Labs: Lab Results 07/22/22 07/22/22 Range/Units 14:00 14:00 WBC 7.7 (4.5-11.0) X10^3/uL RBC 5.38 (4.5-5.9) X10^6/uL Hgb 15.1 (13.5-17.5) g/dL Hct 43.9 (41-53) % MCV 81.7 (80-100) fL MCH 28.0 (26-34) PG MCHC 34.3 (30-36) % RDW 14.0 (11.6-14.8) % Plt Count 330 (150-400) X10^3/uL Neut % (Auto) 85.9 H (50-75) % Lymph % (Auto) 6.5 L (25-40) % [place] % (Auto) 6.8 (3-14) % Eos % (Auto) 0.1 L (2-4) % Baso % (Auto) 0.7 (0-2) % Neut # (Auto) 6700 (5257-8482) /uL Lymph # (Auto) 500 L (3332-6758) /uL [place] # (Auto) 500 (0-900) /uL Eos # (Auto) 0 (0-450) /uL Baso # (Auto) 100 (0-100) /uL Sodium 138 (137-145) mmol/L Potassium 3.0 L (3.4-5.1) mmol/L Chloride 100 (98-107) mmol/L Carbon Dioxide 24 (22-32) mmol/L BUN 23 H (9-20) mg/dL Creatinine 0.95 (0.66-1.25) mg/dL Estimated GFR > 60 (>60) mL/min BUN/Creatinine Ratio 24.2 H (6-22) Glucose 121 H (80-110) mg/dL Calcium 9.8 (8.4-10.2) mg/dL Total Bilirubin 1.7 H (0.2-1.3) mg/dL AST 37 (17-59) IU/L ALT 24 (<50) IU/L Alkaline Phosphatase 144 H (38-126) U/L Troponin I < 0.012 (0.01-0.034) ng/mL Total Protein 9.3 H (6.3-8.2) g/dL Albumin 5.1 H (3.5-5.0) g/dL Globulin 4.2 H (1.7-4.1) g/dL Albumin/Globulin Ratio 1.2 (1.0-2.8) Lipase 601 H (23-300) U/L [facility] Narrative Medical decision making narrative: 67-year-old male presenting with nausea, vomiting, and diarrhea. Vital signs on presentation notable for hypertension. Physical exam for alert and interactive 67-year-old male in no acute distress, reassuring cardiac and pulmonary exam, abdomen with diffuse upper abdominal tenderness. Initial concern for acute intra-abdominal pathology including biliary pathology, pancreatitis, obstruction, appendicitis, vascular pathology, medication effect, food-borne illness. Low suspicion for occult ACS given patient's symptoms are clearly localized to the abdomen, patient sick contact with similar symptoms, further evaluation for ACS was deferred. Broad screening labs were obtained, patient was treated symptomatically as above. Screening labs notable for no leukocytosis, no significant anemia, patient does have mild hemoconcentration, CMP normal range creatinine, borderline hypokalemia at 3.0, this is consistent with the patient's prior, patient's lipase is significantly elevated at 600, undetectable high sensitivity troponin. On repeat evaluation, discussed findings with the patient, symptoms seem most consistent with pancreatitis. Patient's symptoms are significantly improved repeat evaluation. Patient is motivated trial discharge and outpatient follow up. Discussed plan for restarting the patient's blood pressure medications, trial of outpatient pain medication and close outpatient follow up. Return prec autions were discussed. Specifically discussed the patient may require repeat presentation in the emergency department and admission if symptoms are not managed successfully in the outpatient setting. Discharge Plan Departure Patient Disposition: Home Clinical Impression: Acute pancreatitis Instructions: DI for Pancreatitis Prescriptions: New carvedilol 25 mg tablet 25 mg PO BID Qty: 30 0RF Rx Instructions: must administer with a meal/food losartan 100 mg tablet 100 mg PO DAILY Qty: 30 0RF amlodipine 5 mg tablet 5 mg PO BID Qty: 30 0RF oxycodone 5 mg capsule 5 mg PO Q8H PRN (Reason: pain) Qty: 10 0RF No Action azithromycin [Zithromax Z-Nima] 250 mg Tablet 500 mg PO DAILY Qty: 2 0RF Rx Instructions: next dose due 01/12 AM cefdinir 300 mg capsule 300 mg PO BID Qty: 20 0RF carvedilol 25 mg tablet 25 mg PO BID Qty: 60 0RF Rx Instructions: must administer with a meal/food losartan 100 mg tablet 100 mg PO DAILY Qty: 30 0RF amlodipine 5 mg tablet 5 mg PO BID acetaminophen 500 mg Tablet 1,000 mg PO Q6H PRN (Reason: Pain (Scale Score 1-3)) hydrocodone-acetaminophen 5-325 mg tablet 1 tab PO Q6H PRN (Reason: pain) Qty: 10 0RF Referrals: Shankar Huitron PA-C [Primary Care Provider] - Stand Alone Forms: Patient Portal/API
== END 2022-07-22 18:59 | disposition home or self-care (01) ==
PROVIDERS: Emergency Provider Emergency Medicine; Family Provider Family Medicine; PCP Physician Assistant
DX: K85.90 Acute pancreatitis without necrosis or infection, unspecified (principal)
CPT/HCPCS: 71045; 74177; 80053; 83690; 84484; 85025; 93005; 93010; 96361; 96374; 96375; 99284; J1170; J2765; Q9967

== ENCOUNTER 2022-08-11 09:17 | Emergency (ER) | payer MEDICARE, OTHER, MEDICAID, SELFPAY ==
[2022-01-08 21:03] VITALS: BMI 30.1
[2022-01-09 02:00] VITALS: PULSE 71; RESP 12; O2SAT 98
--- NOTE | 2022-08-11 09:28 | DI.RAD.S_ITS ---
PROCEDURE: XR CHEST 2V INDICATIONS: SOB TECHNIQUE: 2 views of the chest were acquired. COMPARISON: [facility], CR, XR CHEST 1V, 07/22/2022, 13:58. FINDINGS: Surgical changes and devices: None. Lungs and pleura: Lungs are clear. Cephalization of flow. No pleural effusions or pneumothorax. Mediastinum: Mediastinal contours are normal. Heart size is normal. Bones and chest wall: No suspicious bony abnormalities. Soft tissues appear unremarkable. IMPRESSION: Pulmonary venous hypertension without teo pulmonary edema. Dictated by: Vinay Ewing M.D. on 08/11/2022 at 10:31 Approved by: Vniay Ewing M.D. on 08/11/2022 at 10:33
[2022-08-11 09:33] VITALS: BP 164/74; PULSE 64; RESP 22; TEMP 36.3; O2SAT 98; BMI 29.6
--- NOTE | 2022-08-11 09:46 | ED_ITS ---
HPI - SOB/Dyspnea General Chief Complaint: Shortness of Breath/Dyspnea Stated Complaint: painful swelling in feet T-5 Time Seen by Provider: 08/11/22 09:27 Source: patient Mode of arrival: Family Vehicle Limitations: no limitations History of Present Illness HPI Narrative: 67-year-old male nonsmoker with history of CHF and hypertension presents with a chief complaint of swelling in his feet for the past few days as well as shortness of breath. Denies any chest pain but does admit to being short of breath with exertion and also with lying flat. He denies any obvious weight gain. He states he has been taking his medications as directed and denies any change in the dosing of his diuretic. He denies chest pain, fever or chills. He is not dizzy nor weak or lightheaded. He denies nausea, vomiting or diarr hea. He denies abdominal pain or constipation and has no urinary complaints. Related Data Home Medications Medication Instructions Recorded Confirmed acetaminophen 500 mg tablet 1,000 mg PO Q6H PRN Pain (Scale 11/21/18 01/08/22 Score 1-3) amlodipine 5 mg tablet 5 mg PO BID 07/22/22 07/22/22 Previous Rx's Medication Instructions Recorded hydrocodone 5 mg-acetaminophen 325 1 tab PO Q6H PRN pain #10 tabs 06/20/21 mg tablet azithromycin 250 mg tablet 500 mg PO DAILY #2 tabs 01/11/22 (Zithromax Z-Nima) carvedilol 25 mg tablet 25 mg PO BID #60 tabs 01/11/22 cefdinir 300 mg capsule 300 mg PO BID #20 caps 01/11/22 losartan 100 mg tablet 100 mg PO DAILY #30 tabs 01/11/22 amlodipine 5 mg tablet 5 mg PO BID #30 tabs 07/22/22 carvedilol 25 mg tablet 25 mg PO BID #30 tabs 07/22/22 losartan 100 mg tablet 100 mg PO DAILY #30 tabs 07/22/22 oxycodone 5 mg capsule 5 mg PO Q8H PRN pain #10 caps 07/22/22 Allergies Allergy/AdvReac Type Severity Reaction Status Date / Time NSAIDS (Non-Steroidal Allergy Severe Swelling Verified 07/22/22 13:49 Anti-Inflamma of Lip/Tongue/Throat chocolate flavor Allergy Intermediate Swelling Verified 07/22/22 13:49 of Lip/Tongue/Throat peanut Allergy Intermediate Swelling Verified 07/22/22 13:49 of Lip/Tongue/Throat strawberry Allergy Intermediate Swelling Verified 07/22/22 13:49 of Lip/Tongue/Throat celecoxib [From CELEBREX] Allergy Unknown Verified 07/22/22 13:49 lisinopril [LISINOPRIL] Allergy Unknown Verified 07/22/22 13:49 meloxicam [MELOXICAM] Allergy Unknown ANAPHYLAXSI Verified 07/22/22 13:49 S Penicillins [PENICILLINS] Allergy Unknown Verified 07/22/22 13:49 avocado AdvReac Intermediate Swelling Verified 07/22/22 13:49 of Lip/Tongue/Throat peas AdvReac Intermediate Swelling Verified 07/22/22 13:49 of Lip/Tongue/Throat sulfite AdvReac Intermediate Migraine Verified 07/22/22 13:49 Review of Systems Review of Systems Narrative: GENERAL: See HPI HEENT: Denies sinus pain, ear pain, sore throat, difficulty swallowing, dizziness. RESPIRATORY: See HPI CARDIOVASCULAR: See HPI GASTROINTESTINAL: Denies nausea, vomiting, abdominal pain, diarrhea, constipation, melena. : Denies dysuria, frequency, incontinence, hematuria, urinary retention. MUSCULOSKELETAL: denies weakness, joint pain, or bony pain SKIN: Denies rash, skin lesions, or other NEUROLOGIC: Denies weakness, headache, numbness, change in speech, confusion, seizures, incoordination. PSYCHIATRIC: No concerning psychosocial issues. 12 point review of systems is negative except for those stated above Patient History Medical History Chronic neck and back pain Coronary artery disease Hypertension Left hemiparesis Right rib fracture Stroke Systolic congestive 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, NYHA class 1 Surgical History History of cholecystectomy History of laparotomy History of shoulder surgery History of surgery on wrist Hx of fusion of cervical spine Family History Father Parkinsons Mother Cancer Brother Cancer Sister No significant medical problems Social History household members: other Smoking Status: Never smoker alcohol intake: current substance use type: does not use Smoking Status: Never smoker tobacco type: cigarettes alcohol intake frequency: holidays/special occasions only Substance Use Type: marijuana Exam Narrative Exam Narrative: GENERAL: [67] year old patient appears stated age. Well-developed patient, in mild distress. HEAD: Atraumatic. Normocephalic. EYES: Pupils equal round and reactive. Extraocular motions intact. No scleral icterus. No injection or drainage. ENT: Nose without bleeding, purulent drainage. Throat without erythema, tonsillar hypertrophy or exudate. Airway patent. NECK: Trachea midline. Non tender CARDIOVASCULAR: Regular rate and rhythm without murmurs, gallops, or rubs. RESPIRATORY: No signs of respiratory distress, no use of accessory muscles or hypoxemia. Very faint crackles in bilateral bases GASTROINTESTINAL: Abdomen soft, non-tender, nondistended. EXTREMITIES: 2+ pitting edema in bilateral lower extremities, no erythema BACK: Nontender without deformity or crepitance. No flank tenderness. NEURO: AOx3. SKIN: No rash or erythema of visible areas Initial Vital Signs Initial Vital Signs: Vital Signs Temperature 97.4 F L 08/11/22 09:33 Pulse Rate 64 08/11/22 09:33 Respiratory Rate 22 08/11/22 09:33 Blood Pressure 164/74 H 08/11/22 09:33 Pulse Oximetry 98 08/11/22 09:33 Oxygen Delivery Method Room Air 08/11/22 09:33 Course Orders Ordered: ED Orders 08/11/22 09:28 XR chest 2V Stat EKG-12 Lead Stat 08/11/22 09:56 Complete Blood Count AUTO DIFF Stat Comprehensive Metabolic Panel Stat Lipase Stat Magnesium Stat NT-proBNP (BNP-Adult 18+) Stat Prothrombin Time INR Stat Troponin & CK Cardiac Panel Stat Discontinued Medications Furosemide (Furosemide 40 Mg/4 Ml Vial) 40 mg IV NOW ONE Stop: 08/11/22 09:28 Last Admin: 08/11/22 10:24 Dose: 40 mg Documented By: AMU Reevaluation(s) Reevaluation #1: Patient producing dilute urine after Lasix 40 mg Vital Signs Vital signs: Vital Signs - 8 hr 08/11/22 09:33 08/11/22 10:06 Temperature 97.4 F L Pulse Rate 64 60 Respiratory Rate 22 Blood Pressure 164/74 H Pulse Oximetry 98 92 Oxygen Delivery Method Room Air MDM - SOB/Dyspnea Lab Data 08/11/22 09:56 08/11/22 09:56 Labs: Lab Results 08/11/22 08/11/22 08/11/22 Range/Units 09:56 09:56 09:56 WBC 3.5 L (4.5-11.0) X10^3/uL RBC 4.12 L (4.5-5.9) X10^6/uL Hgb 11.5 L (13.5-17.5) g/dL Hct 34.4 L (41-53) % MCV 83.5 (80-100) fL MCH 27.9 (26-34) PG MCHC 33.5 (30-36) % RDW 14.6 (11.6-14.8) % Plt Count 196 (150-400) X10^3/uL Neut % (Auto) 71.2 (50-75) % Lymph % (Auto) 11.3 L (25-40) % [place] % (Auto) 8.1 (3-14) % Eos % (Auto) 7.9 H (2-4) % Baso % (Auto) 1.5 (0-2) % Neut # (Auto) 2500 (5123-9296) /uL Lymph # (Auto) 400 L (7050-1748) /uL [place] # (Auto) 300 (0-900) /uL Eos # (Auto) 300 (0-450) /uL Baso # (Auto) 100 (0-100) /uL PT 11.8 (10.1-12.7) SECONDS INR 1.0 (0.9-1.3) Sodium 138 (137-145) mmol/L Potassium 3.5 (3.4-5.1) mmol/L Chloride 100 (98-107) mmol/L Carbon Dioxide 34 H (22-32) mmol/L BUN 14 (9-20) mg/dL Creatinine 0.94 (0.66-1.25) mg/dL Estimated GFR > 60 (>60) mL/min BUN/Creatinine Ratio 14.9 (6-22) Glucose 105 (80-110) mg/dL Calcium 8.4 (8.4-10.2) mg/dL Magnesium 2.0 (1.6-2.3) mg/dL Total Bilirubin 0.3 (0.2-1.3) mg/dL AST 29 (17-59) IU/L ALT 19 (<50) IU/L Alkaline Phosphatase 117 (38-126) U/L Total Creatine Kinase 105 (55-170) U/L CK-MB (CK-2) 1.31 (<2.37) ng/mL CK-MB (CK-2) Rel Index 1.2 L (1.5-5.0) % Troponin I < 0.012 (0.01-0.034) ng/mL NT-Pro-B Natriuret Pep 2520 H (<125) pg/mL Total Protein 6.7 (6.3-8.2) g/dL Albumin 3.6 (3.5-5.0) g/dL Globulin 3.1 (1.7-4.1) g/dL Albumin/Globulin Ratio 1.2 (1.0-2.8) Lipase 347 H (23-300) U/L Urine Dip Bedside Urine Glucose Negative Bedside Urine Bilirubin - Negative Bedside Urine Ketone - Negative Urine Specific [place] 1.015 Bedside Urine Occult Blood - Negative Bedside Urine pH 6.0 Bedside Urine Protein - Negative Bedside Urine Urobilinogen - Negative Bedside Urine Nitrite - Negative Bedside Urine Leukocytes - Negative Esterase ECG Data Interpretation: [0952] EKG is normal sinus rhythm rate [59 ] and free of any signs of ischemia or ectopy. No ST segmental elevation or depression. No T wave inversions MDM Narrative Medical decision making narrative: CC: 67-year-old male with bilateral lower extremity swelling Complicating co-morbidities: Age, hypertension, heart failure Data collected from: Patient Medical records reviewed: Prior notes reviewed in our EMR Differential considered, but not limited to: Exacerbation of CHF, renal fa ilure, electrolyte abnormality versus other Exam documented above, pertinent findings include: No respiratory distress but faint crackles in bilateral lung bases, heart rate regular, abdomen soft and nontender. No hypoxemia. Bilateral lower extremity pitting edema Lab Test results independently reviewed as above. Pertinent findings: No significant leukocytosis or left shift, no significant anemia. Electrolytes and renal function within normal limits. BNP elevated Independently reviewed EKG as above Imaging studies independently reviewed: Chest x-ray suggestive of CHF Treatments: Lasix Re-evaluations: Patient producing urine Discussion: Patient with bilateral lower extremity edema, exertional dyspnea and orthopnea for the past few days. He is not in any respiratory distress, does not require supplemental oxygen. Patient producing urine after increased dose of Lasix. I discussed with the patient that he does not meet any admission criteria and that he should increase his Lasix for each of the next few days and then returned to normal dosing and follow up closely with his doctor. Disposition: see below, along with detailed discharge instructions that have been reviewed with patient as well as indications for ED re-evaluation and additional outpatient follow up Discharge Plan Departure Patient Disposition: Home Clinical Impression: Acute exacerbation of CHF (congestive heart failure) Instructions: DI for Heart Failure Activity Restrictions/Additional Instructions: *You have been diagnosed with [swelling in your feet and shortness of breath associated with acute exacerbation of CHF. As we discussed your history and physical exam are reassuring in the labs and chest x-ray all point towards this being some extra fluid buildup. As we discussed there is no indication for hospitalization at this time.] *What to do: * starting tomorrow August 12 please increase your morning dose of Lasix from 20 mg to 40 mg for three days and then return to normal dosing. Otherwise please continue to take your regular medications as directed. *Please follow up with your primary care provider in 2-3 days, call for an appointment. Let them know you were seen in the Emergency Department and that we ask that you be seen in follow up. We will electronically transmit a record of today's note if your PCP is in our system *Return to Emergency Department if you should have any new, worsening or concerning symptoms, such as [fever greater than 101 F, shaking chills, worsening pain, persistent vomiting or other bothersome symptoms] Prescriptions: No Action azithromycin [Zithromax Z-Nima] 250 mg Tablet 500 mg PO DAILY Qty: 2 0RF Rx Instructions: next dose due 01/12 AM cefdinir 300 mg capsule 300 mg PO BID Qty: 20 0RF carvedilol 25 mg tablet 25 mg PO BID Qty: 60 0RF Rx Instructions: must administer with a meal/food losartan 100 mg tablet 100 mg PO DAILY Qty: 30 0RF amlodipine 5 mg tablet 5 mg PO BID carvedilol 25 mg tablet 25 mg PO BID Qty: 30 0RF Rx Instructions: must administer with a meal/food losartan 100 mg tablet 100 mg PO DAILY Qty: 30 0RF amlodipine 5 mg tablet 5 mg PO BID Qty: 30 0RF oxycodone 5 mg capsule 5 mg PO Q8H PRN (Reason: pain) Qty: 10 0RF acetaminophen 500 mg Tablet 1,000 mg PO Q6H PRN (Reason: Pain (Scale Score 1-3)) hydrocodone-acetaminophen 5-325 mg tablet 1 tab PO Q6H PRN (Reason: pain) Qty: 10 0RF Referrals: Miscellaneous,Doctor, MD [Primary Care Provider] - Stand Alone Forms: Patient Portal/API
[2022-08-11 10:04] LABS: Add Manual Diff / Slide Review NO; Basophils Absolute Auto 100 /uL (0-100); Basophils Percent Auto 1.5 % (0-2); Eosinophils Absolute Auto 300 /uL (0-450); Eosinophils Percent Auto 7.9 % (2-4); Hematocrit 34.4 % (41-53); Hemoglobin 11.5 g/dL (13.5-17.5); Lymphocytes Absolute Auto 400 /uL (1100-4500); Lymphocytes Percent Auto 11.3 % (25-40); Mean Corpuscular HGB Conc 33.5 % (30-36); Mean Corpuscular Hemoglobin 27.9 PG (26-34); Mean Corpuscular Volume 83.5 fL (80-100); Monocytes Absolute Auto 300 /uL (0-900); Monocytes Percent Auto 8.1 % (3-14); Neutrophils Absolute Auto 2500 /uL (1500-7000); Neutrophils Percent Auto 71.2 % (50-75); Platelet Count 196 X10^3/uL (150-400); Red Blood Cell Count 4.12 X10^6/uL (4.5-5.9); Red Cell Distribution Width 14.6 % (11.6-14.8); White Blood Cell Count 3.5 X10^3/uL (4.5-11.0)
[2022-08-11 10:06] VITALS: PULSE 60; O2SAT 92
[2022-08-11 10:11] LABS: Prothrombin Time 11.8 SECONDS (10.1-12.7)
[2022-08-11 10:20] LABS: Alanine Aminotransferase 19 IU/L (<50); Albumin 3.6 g/dL (3.5-5.0); Albumin Globulin Ratio 1.2 (1.0-2.8); Alkaline Phosphatase 117 U/L (38-126); Aspartate Aminotransferase 29 IU/L (17-59); BUN Creatinine Ratio 14.9 (6-22); Bilirubin Total 0.3 mg/dL (0.2-1.3); Blood Urea Nitrogen 14 mg/dL (9-20); Calcium 8.4 mg/dL (8.4-10.2); Carbon Dioxide 34 mmol/L (22-32); Chloride 100 mmol/L (98-107); Creatine Kinase 105 U/L (55-170); Estimated Glomerular Filt Rate > 60 mL/min (>60); Globulin 3.1 g/dL (1.7-4.1); Glucose 105 mg/dL (80-110); HEMOLYSIS < 15 (0-50); Lipase 347 U/L (23-300); Potassium 3.5 mmol/L (3.4-5.1); Sodium 138 mmol/L (137-145); Total Protein 6.7 g/dL (6.3-8.2)
[2022-08-11] MEDS: FUROSEMIDE 40 MG/4 ML VIAL IV (10:24)
[2022-08-11 10:29] LABS: NT-proBNP (BNP-Adult 18+) 2520 pg/mL (<125); Troponin I < 0.012 ng/mL (0.01-0.034)
[2022-08-11 10:35] LABS: CKMB % Relative Index 1.2 % (1.5-5.0); Creatine Kinase MB 1.31 ng/mL (<2.37)
[2022-08-11 11:01] VITALS: BP 157/75; PULSE 63; RESP 18; O2SAT 98
== END 2022-08-11 11:02 | disposition home or self-care (01) ==
PROVIDERS: Emergency Provider Emergency Medicine; Family Provider Family Medicine
DX: I50.9 Heart failure, unspecified (principal)
CPT/HCPCS: 36415; 71046; 80053; 81003; 82550; 82553; 83690; 83735; 83880; 84484; 85025; 85610; 93005; 96374; 99284; J1940

== ENCOUNTER 2022-08-16 16:04 | Observation (INO) | payer MEDICARE, MEDICAID, OTHER, SELFPAY ==
[2022-01-08 21:03] VITALS: BMI 30.1
[2022-01-09 02:00] VITALS: PULSE 71; RESP 12; O2SAT 98
[2022-08-16] VITALS (14 sets, daily range): BP systolic 151–207; BP diastolic 67–95; PULSE 55–70; RESP 16–18; TEMP 36.2–37.2; O2SAT 98–100; BMI 29.6
[2022-08-16 18:22] LABS: INR 1.1 (0.9-1.3); Prothrombin Time 12.8 SECONDS (10.1-12.7)
[2022-08-16 18:24] LABS: PTT Partial Thromboplastin Tim 22 SECONDS (26-36)
[2022-08-16 18:25] LABS: Basophils Absolute Auto 100 /uL (0-100); Basophils Percent Auto 1.1 % (0-2); Eosinophils Absolute Auto 100 /uL (0-450); Eosinophils Percent Auto 2.1 % (2-4); Hematocrit 38.9 % (41-53); Hemoglobin 13.2 g/dL (13.5-17.5); Lymphocytes Absolute Auto 600 /uL (1100-4500); Lymphocytes Percent Auto 10.3 % (25-40); Mean Corpuscular Hemoglobin 28.2 PG (26-34); Mean Corpuscular Volume 82.9 fL (80-100); Monocytes Absolute Auto 500 /uL (0-900); Monocytes Percent Auto 9.8 % (3-14); Neutrophils Absolute Auto 4100 /uL (1500-7000); Neutrophils Percent Auto 76.7 % (50-75); Red Cell Distribution Width 14.9 % (11.6-14.8); White Blood Cell Count 5.4 X10^3/uL (4.5-11.0)
[2022-08-16 18:26] LABS: Add Manual Diff / Slide Review SLIDE REVIEW
[2022-08-16 18:36] LABS: Uric Acid 5.6 mg/dL (3.5-8.5)
[2022-08-16 18:37] LABS: Alanine Aminotransferase 20 IU/L (<50); Albumin 4.2 g/dL (3.5-5.0); Albumin Globulin Ratio 1.1 (1.0-2.8); Alkaline Phosphatase 97 U/L (38-126); Aspartate Aminotransferase 35 IU/L (17-59); BUN Creatinine Ratio 12.2 (6-22); Blood Urea Nitrogen 11 mg/dL (9-20); Calcium 9.1 mg/dL (8.4-10.2); Carbon Dioxide 34 mmol/L (22-32); Chloride 97 mmol/L (98-107); Estimated Glomerular Filt Rate > 60 mL/min (>60); Globulin 3.7 g/dL (1.7-4.1); Glucose 90 mg/dL (80-110); HEMOLYSIS 39 (0-50); Lipase 268 U/L (23-300); Magnesium 2.1 mg/dL (1.6-2.3); Potassium 3.1 mmol/L (3.4-5.1); Sodium 136 mmol/L (137-145); Total Protein 7.9 g/dL (6.3-8.2)
[2022-08-16 18:44] LABS: Platelet Estimate Adequate on smear; RBC Morphology Normal Morphology
[2022-08-16 18:46] LABS: NT-proBNP (BNP-Adult 18+) 2660 pg/mL (<125)
--- NOTE | 2022-08-16 20:14 | ED.GENADULT ---
HPI - General Adult General Chief complaint: Extremity Problem,Nontraumatic Stated complaint: Both feet pain/swelling Time Seen by Provider: 08/16/22 18:21 Source: patient and EMS Mode of arrival: EMS History of Present Illness HPI narrative: 67-year-old gentleman with a history of coronary artery disease, prior CVA with residual left-sided weakness, hypertension, cardiomegaly, systolic congestive heart failure presents with lower extremity swelling and increasing pain bilaterally. Patient was seen on the with similar complaints and 40 mg of IV Lasix given, he was not hypoxic nor meeting admission criteria and instructed to increase his Lasix over the next couple of days. Over the ensuing days he has increased his Lasix from 20 mg to 40 mg but lines that his lower extremity edema is increasing as is his orthopnea and dyspnea. He is now having significant lower extremity pain secondary to the edema with sheets even touching his lower extremities. Related Data Home Medications Medication Instructions Recorded Confirmed acetaminophen 500 mg tablet 1,000 mg PO Q6H PRN Pain (Scale 11/21/18 01/08/22 Score 1-3) amlodipine 5 mg tablet 5 mg PO BID 07/22/22 07/22/22 Previous Rx's Medication Instructions Recorded hydrocodone 5 mg-acetaminophen 325 1 tab PO Q6H PRN pain #10 tabs 06/20/21 mg tablet azithromycin 250 mg tablet 500 mg PO DAILY #2 tabs 01/11/22 (Zithromax Z-Nima) carvedilol 25 mg tablet 25 mg PO BID #60 tabs 01/11/22 cefdinir 300 mg capsule 300 mg PO BID #20 caps 01/11/22 losartan 100 mg tablet 100 mg PO DAILY #30 tabs 01/11/22 amlodipine 5 mg tablet 5 mg PO BID #30 tabs 07/22/22 carvedilol 25 mg tablet 25 mg PO BID #30 tabs 07/22/22 losartan 100 mg tablet 100 mg PO DAILY #30 tabs 07/22/22 oxycodone 5 mg capsule 5 mg PO Q8H PRN pain #10 caps 07/22/22 Allergies Allergy/AdvReac Type Severity Reaction Status Date / Time NSAIDS (Non-Steroidal Allergy Severe Swelling Verified 07/22/22 13:49 Anti-Inflamma of Lip/Tongue/Throat chocolate flavor Allergy Intermediate Swelling Verified 07/22/22 13:49 of Lip/Tongue/Throat peanut Allergy Intermediate Swelling Verified 07/22/22 13:49 of Lip/Tongue/Throat strawberry Allergy Intermediate Swelling Verified 07/22/22 13:49 of Lip/Tongue/Throat celecoxib [From CELEBREX] Allergy Unknown Verified 07/22/22 13:49 lisinopril [LISINOPRIL] Allergy Unknown Verified 07/22/22 13:49 meloxicam [MELOXICAM] Allergy Unknown ANAPHYLAXSI Verified 07/22/22 13:49 S Penicillins [PENICILLINS] Allergy Unknown Verified 07/22/22 13:49 avocado AdvReac Intermediate Swelling Verified 07/22/22 13:49 of Lip/Tongue/Throat peas AdvReac Intermediate Swelling Verified 07/22/22 13:49 of Lip/Tongue/Throat sulfite AdvReac Intermediate Migraine Verified 07/22/22 13:49 Review of Systems Review of Systems Narrative: Pertinent positive and negative findings as per HPI Patient History Medical History Chronic neck and back pain Coronary artery disease Hypertension Left hemiparesis Right rib fracture Stroke Systolic congestive 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, NYHA class 1 Surgical History History of cholecystectomy History of laparotomy History of shoulder surgery History of surgery on wrist Hx of fusion of cervical spine Family History Father Parkinsons Mother Cancer Brother Cancer Sister No significant medical problems Social History household members: other Smoking Status: Never smoker alcohol intake: current substance use type: does not use Smoking Status: Never smoker tobacco type: cigarettes alcohol intake frequency: holidays/special occasions only Substance Use Type: marijuana Exam Initial Vital Signs Initial Vital Signs: Vital Signs Temperature 98.9 F 08/16/22 16:19 Pulse Rate 59 L 08/16/22 16:19 Respiratory Rate 16 08/16/22 16:19 Blood Pressure 151/71 H 08/16/22 16:19 Pulse Oximetry 100 08/16/22 16:19 Oxygen Delivery Method Room Air 08/16/22 16:19 General: Healthy appearing, in mild distress. Able to give a complete and coherent history. Well-nourished well-developed HEENT: Moist mucous membranes, normal sclera with reactive pupils, Neck: +JVD, supple Respiratory: Lungs with diffuse wheeze in all lung abreu and bibasilar rhonchi. Cardiac: Regular rate and rhythm no murmurs no bruits Abdomen: Soft, nontender, good bowel tones, no flank pain Skin: Warm and dry, chronic venous stasis changes, no cellulitis or obvious skin breakdown Neurologic: Grossly neurologically intact with no obvious asymmetries or abnormalities Extremities: No trauma, 3+ lower extremity edema Psych: Cooperative, appropriate insight and affect Course Orders Ordered: ED Orders 08/16/22 18:00 BNP [NT-proBNP (BNP-Adult 18+)] Stat Complete Blood Count AUTO DIFF Stat Comprehensive Metabolic Panel Stat Lipase Stat Magnesium Stat PTT Partial Thromboplastin Phani Stat Prothrombin Time INR Stat Trop I [Troponin I] Stat Uric Acid Stat 08/16/22 20:50 XR chest 1V Stat 08/16/22 21:18 UA dip and micro [Urinalysis and Microscopic] Stat 08/16/22 21:25 Respiratory Panel (Film Array) Stat 08/16/22 22:07 EKG-12 Lead Stat 08/16/22 22:19 EKG-12 Lead Stat Hydromorphone HCl (Hydromorphone 0.5 Mg Inj) 0.5 mg IV Q15MIN PRN PRN Reason: Pain, Last Admin: 08/16/22 21:30 Dose: 0.5 mg Documented By: Admin: 08/16/22 21:05 Dose: 0.5 mg Documented By: MIRLANDE POTASSIUM CHLORIDE IN WATER (Potassium Cl 10 Meq/100 Ml Nenita) 10 meq in 100 mls @ 100 mls/hr IV Q1H [facility] Stop: 08/17/22 00:59 Last Infusion: 08/16/22 22:17 Dose: 100 mls/hr Documented By: Infusion: 08/16/22 22:05 Dose: 0 mls/hr Documented By: Admin: 08/16/22 21:31 Dose: 100 mls/hr Documented By: MIRLANDE Discontinued Medications Albuterol/Ipratropium (Albuterol/Ipratropium 3 Ml Ampul) 3 ml INH NOW ONE Stop: 08/16/22 22:20 Last Admin: 08/16/22 22:42 Dose: 3 ml Documented By: CANDELARIO Furosemide 80 mg/ Sodium (Chloride) 58 mls @ 116 mls/hr IV NOW ONE Stop: 08/16/22 20:51 Last Infusion: 08/16/22 21:49 Dose: 0 mls/hr Documented By: Admin: 08/16/22 21:09 Dose: 116 mls/hr Documented By: MIRLANDE Potassium Chloride (Potassium Chloride 20 Meq Tab) 40 meq PO NOW ONE Stop: 08/16/22 20:51 Last Admin: 08/16/22 21:05 Dose: 40 meq Documented By: MIRLANDE Vital Signs Vital signs: Vital Signs - 8 hr 08/16/22 16:19 08/16/22 18:48 08/16/22 18:48 Temperature 98.9 F Pulse Rate 59 L 62 Respiratory Rate 16 Blood Pressure 151/71 H 177/67 H Pulse Oximetry 100 100 Oxygen Delivery Method Room Air 08/16/22 19:00 08/16/22 19:00 08/16/22 19:30 Temperature Pulse Rate 58 L Respiratory Rate Blood Pressure 175/81 H 192/86 H Pulse Oximetry 99 Oxygen Delivery Method 08/16/22 19:30 08/16/22 20:00 08/16/22 20:00 Temperature Pulse Rate 62 66 Respiratory Rate Blood Pressure 203/95 H Pulse Oximetry 100 100 Oxygen Delivery Method 08/16/22 20:30 08/16/22 20:30 08/16/22 21:00 Temperature Pulse Rate 70 66 Respiratory Rate Blood Pressure 188/81 H Pulse Oximetry 99 99 Oxygen Delivery Method 08/16/22 21:01 08/16/22 21:01 08/16/22 21:30 Temperature Pulse Rate 66 Respiratory Rate Blood Pressure 207/88 H 186/84 H Pulse Oximetry 100 Oxygen Delivery Method 08/16/22 21:30 08/16/22 22:00 Temperature Pulse Rate 64 61 Respiratory Rate Blood Pressure Pulse Oximetry 99 98 Oxygen Delivery Method Medical Decision Making Lab Data 08/16/22 18:00 08/16/22 18:00 Labs: Lab Results 08/16/22 08/16/22 08/16/22 Range/Units 18:00 18:00 18:00 WBC 5.4 (4.5-11.0) X10^3/uL RBC 4.70 (4.5-5.9) X10^6/uL Hgb 13.2 L (13.5-17.5) g/dL Hct 38.9 L (41-53) % MCV 82.9 (80-100) fL MCH 28.2 (26-34) PG MCHC 34.0 (30-36) % RDW 14.9 H (11.6-14.8) % Plt Count TNP Neut % (Auto) 76.7 H (50-75) % Lymph % (Auto) 10.3 L (25-40) % Robertson % (Auto) 9.8 (3-14) % Eos % (Auto) 2.1 (2-4) % Baso % (Auto) 1.1 (0-2) % Neut # (Auto) 4100 (7319-6121) /uL Lymph # (Auto) 600 L (7210-0235) /uL Robertson # (Auto) 500 (0-900) /uL Eos # (Auto) 100 (0-450) /uL Baso # (Auto) 100 (0-100) /uL Platelet Estimate Adequate on smear RBC Morphology Normal morphology PT 12.8 H (10.1-12.7) SECONDS INR 1.1 (0.9-1.3) APTT 22 L (26-36) SECONDS Sodium 136 L (137-145) mmol/L Potassium 3.1 L (3.4-5.1) mmol/L Chloride 97 L (98-107) mmol/L Carbon Dioxide 34 H (22-32) mmol/L BUN 11 (9-20) mg/dL Creatinine 0.90 (0.66-1.25) mg/dL Estimated GFR > 60 (>60) mL/min BUN/Creatinine Ratio 12.2 (6-22) Glucose 90 (80-110) mg/dL Uric Acid (3.5-8.5) mg/dL Calcium 9.1 (8.4-10.2) mg/dL Magnesium 2.1 (1.6-2.3) mg/dL Total Bilirubin 1.0 (0.2-1.3) mg/dL AST 35 (17-59) IU/L ALT 20 (<50) IU/L Alkaline Phosphatase 97 (38-126) U/L Troponin I (0.01-0.034) ng/mL NT-Pro-B Natriuret Pep (<125) pg/mL Total Protein 7.9 (6.3-8.2) g/dL Albumin 4.2 (3.5-5.0) g/dL Globulin 3.7 (1.7-4.1) g/dL Albumin/Globulin Ratio 1.1 (1.0-2.8) Lipase 268 (23-300) U/L Urine Color Urine Appearance Urine pH (4.5-8.0) Ur Specific [place] (1.000-1.035) Urine Protein (Negative) Urine Glucose (UA) (Negative) g/dL Urine Ketones (NEGATIVE) Urine Occult Blood (Negative) Urine Nitrate (Negative) Urine Bilirubin (NEGATIVE) Urine Urobilinogen (0.2) E.U./dL Ur Leukocyte Esterase (NEGATIVE) Urine RBC (0-5/HPF) Urine WBC (0-5/HPF) Urine Bacteria (None) Ur Culture Indicated? 08/16/22 08/16/22 08/16/22 Range/Units 18:00 18:00 18:00 WBC (4.5-11.0) X10^3/uL RBC (4.5-5.9) X10^6/uL Hgb (13.5-17.5) g/dL Hct (41-53) % MCV (80-100) fL MCH (26-34) PG MCHC (30-36) % RDW (11.6-14.8) % Plt Count Neut % (Auto) (50-75) % Lymph % (Auto) (25-40) % Robertson % (Auto) (3-14) % Eos % (Auto) (2-4) % Baso % (Auto) (0-2) % Neut # (Auto) (5621-8780) /uL Lymph # (Auto) (3349-7470) /uL Robertson # (Auto) (0-900) /uL Eos # (Auto) (0-450) /uL Baso # (Auto) (0-100) /uL Platelet Estimate RBC Morphology PT (10.1-12.7) SECONDS INR (0.9-1.3) APTT (26-36) SECONDS Sodium (137-145) mmol/L Potassium (3.4-5.1) mmol/L Chloride (98-107) mmol/L Carbon Dioxide (22-32) mmol/L BUN (9-20) mg/dL Creatinine (0.66-1.25) mg/dL Estimated GFR (>60) mL/min BUN/Creatinine Ratio (6-22) Glucose (80-110) mg/dL Uric Acid 5.6 (3.5-8.5) mg/dL Calcium (8.4-10.2) mg/dL Magnesium Cancelled (1.6-2.3) mg/dL Total Bilirubin (0.2-1.3) mg/dL AST (17-59) IU/L ALT (<50) IU/L Alkaline Phosphatase (38-126) U/L Troponin I < 0.012 (0.01-0.034) ng/mL NT-Pro-B Natriuret Pep 2660 H (<125) pg/mL Total Protein (6.3-8.2) g/dL Albumin (3.5-5.0) g/dL Globulin (1.7-4.1) g/dL Albumin/Globulin Ratio (1.0-2.8) Lipase (23-300) U/L Urine Color Urine Appearance Urine pH (4.5-8.0) Ur Specific [place] (1.000-1.035) Urine Protein (Negative) Urine Glucose (UA) (Negative) g/dL Urine Ketones (NEGATIVE) Urine Occult Blood (Negative) Urine Nitrate (Negative) Urine Bilirubin (NEGATIVE) Urine Urobilinogen (0.2) E.U./dL Ur Leukocyte Esterase (NEGATIVE) Urine RBC (0-5/HPF) Urine WBC (0-5/HPF) Urine Bacteria (None) Ur Culture Indicated? 08/16/22 Range/Units 21:18 WBC (4.5-11.0) X10^3/uL RBC (4.5-5.9) X10^6/uL Hgb (13.5-17.5) g/dL Hct (41-53) % MCV (80-100) fL MCH (26-34) PG MCHC (30-36) % RDW (11.6-14.8) % Plt Count Neut % (Auto) (50-75) % Lymph % (Auto) (25-40) % Robertson % (Auto) (3-14) % Eos % (Auto) (2-4) % Baso % (Auto) (0-2) % Neut # (Auto) (3139-8784) /uL Lymph # (Auto) (2733-5198) /uL Robertson # (Auto) (0-900) /uL Eos # (Auto) (0-450) /uL Baso # (Auto) (0-100) /uL Platelet Estimate RBC Morphology PT (10.1-12.7) SECONDS INR (0.9-1.3) APTT (26-36) SECONDS Sodium (137-145) mmol/L Potassium (3.4-5.1) mmol/L Chloride (98-107) mmol/L Carbon Dioxide (22-32) mmol/L BUN (9-20) mg/dL Creatinine (0.66-1.25) mg/dL Estimated GFR (>60) mL/min BUN/Creatinine Ratio (6-22) Glucose (80-110) mg/dL Uric Acid (3.5-8.5) mg/dL Calcium (8.4-10.2) mg/dL Magnesium (1.6-2.3) mg/dL Total Bilirubin (0.2-1.3) mg/dL AST (17-59) IU/L ALT (<50) IU/L Alkaline Phosphatase (38-126) U/L Troponin I (0.01-0.034) ng/mL NT-Pro-B Natriuret Pep (<125) pg/mL Total Protein (6.3-8.2) g/dL Albumin (3.5-5.0) g/dL Globulin (1.7-4.1) g/dL Albumin/Globulin Ratio (1.0-2.8) Lipase (23-300) U/L Urine Color Yellow Urine Appearance Clear Urine pH 8.5 H (4.5-8.0) Ur Specific [place] 1.015 (1.000-1.035) Urine Protein Trace H (Negative) Urine Glucose (UA) Negative (Negative) g/dL Urine Ketones Negative (NEGATIVE) Urine Occult Blood Negative (Negative) Urine Nitrate Negative (Negative) Urine Bilirubin Negative (NEGATIVE) Urine Urobilinogen 1.0 (0.2) E.U./dL Ur Leukocyte Esterase Negative (NEGATIVE) Urine RBC 0-1/hpf (0-5/HPF) Urine WBC None seen (0-5/HPF) Urine Bacteria None seen (None) Ur Culture Indicated? Cult not indicated MDM Narrative Medical decision making narrative: CC: Bilateral lower extremity pain Complicating co-morbidities: Congestive heart failure, hypertension, cardiovascular disease, prior stroke Data collected from: patient, Medical records reviewed: Your note of August 11 with similar complaints reviewed. Hospitalization for congestive heart failure December of 2021 is also reviewed. [facility] ER notes of 07/26/22 with abdominal pain. Admitted mid June, at [facility] with acute respiratory failure secondary to asthma and congestive heart failure. Differential considered: Acute exacerbation congestive heart failure, acute coronary syndrome, pneumonia, COPD exacerbation (although COPD is not currently listed as a chronic problem for him) Exam documented above, pertinent findings include: Clinical signs of volume overload with JVD, presumed cardiac wheeze with crackles bilaterally and increasing lower extremity edema Lab Test results independently reviewed as above. Pertinent findings: CBC is unremarkable with no leukocytosis or significant anemia Chemistries show potassium at 3.1, creatinine is normal at 0.9 Magnesium is within normal limits at 2.1 Troponin is unremarkable ProBNP is elevated at 2660 which is increased from his visit on 08/11 Independently reviewed EKG sinus Sandeep at 54. QTC is slightly prolonged at 483. No evidence of acute ischemia and was unremarkable EKG Imaging studies independently reviewed: Chest x-ray as interpreted by Radiology shows no effusions no consolidation with possible artifactual opacity of the right lung apex. On independent exam I think he also showing some mild fluid overload without significant cardiomegaly Treatments: IV Lasix. At this point I am not seeing evidence for infection and antibiotics are not indicated. I am waiting for respiratory panel. Discussion: 67-year-old gentleman with hypertension and congestive heart failure. Congestive heart failure symptoms are worsening despite increasing Lasix and outpatient treatment over the last 5 days. Will recommend hospitalization for IV diuresis 10:15pm findings reviewed with patient recommended hospitalization and he is amenable to this. Findings reviewed with the hospitalist who will accept admission. Go ahead and try a DuoNeb due to his wheezing and although I suspect much of it is cardiac wheeze we will see if it makes any difference. Discharge Plan Departure Patient Disposition: Admitted As Inpatient Clinical Impression: Congestive heart failure, Wheeze Admit Date/Time: 08/16/22 22:22 Admit Provider: Chago Nguyen
--- NOTE | 2022-08-16 20:50 | DI.RAD.S_ITS ---
PROCEDURE: XR CHEST 1V INDICATIONS: dyspnea TECHNIQUE: One view of the chest was acquired. COMPARISON: [facility], CR, XR CHEST 2V, 08/11/2022, 10:06. [facility], CR, XR CHEST 1V, 07/22/2022, 13:58. FINDINGS: Surgical changes and devices: None. Lungs and pleura: No dense consolidation. No pleural effusions. Possible artifactual opacity at the right lung apex, less prominent on recent prior imaging. Mediastinum: Mediastinal contours appear normal. Heart size is normal. Bones and chest wall: No suspicious bony lesions. Overlying soft tissues appear unremarkable. IMPRESSION: No dense consolidation or pleural effusion. A mild opacity at the right lung apex may be artifactual, given that this was not as prominent on recent prior imaging. Consider future imaging surveillance to assess for resolution. Dictated by: Carlos Eduardo Cervantes M.D. on 08/16/2022 at 21:55 Approved by: Carlos Eduardo Cervantes M.D. on 08/16/2022 at 21:57
[2022-08-16] MEDS: HYDROMORPHONE 0.5 MG INJ IV ×2 (21:05→21:30)
[2022-08-16] MEDS: POTASSIUM CHLORIDE 20 MEQ TAB 40 MEQ PO (21:05)
[2022-08-16] MEDS: FUROSEMIDE 80 MG in SODIUM CHLORIDE 0.9% 50 ML 116 MG IV (21:09)
[2022-08-16 21:28] LABS: Troponin I < 0.012 ng/mL (0.01-0.034)
[2022-08-16] MEDS: POTASSIUM CHLORIDE IN WATER 10 MEQ/100 ML PIGGYBACK 100 MEQ IV (21:31)
[2022-08-16 21:37] LABS: Appearance Urine UA CLEAR; Bilirubin Urine UA NEGATIVE (NEGATIVE); Color Urine UA YELLOW; Glucose Urine UA NEGATIVE (Negative); Ketones Urine UA NEGATIVE (NEGATIVE); Leukocyte Esterase Urine UA NEGATIVE (NEGATIVE); Nitrite Urine UA NEGATIVE (Negative); Occult Blood Urine UA NEGATIVE (Negative); Protein Urine UA TRACE (Negative); Specific Gravity Urine UA 1.015 (1.000-1.035); pH Urine UA 8.5 (4.5-8.0)
[2022-08-16 21:50] LABS: Bacteria Urine None Seen; Culture Indicated Urine Cult Not Indicated; RBC Urine 0-1/HPF (0-5/HPF); WBC Urine None Seen (0-5/HPF)
--- NOTE | 2022-08-16 22:39 | PM.HP.1 ---
History of Present Illness History of Present Illness Date Patient Seen: 08/16/22 Time Patient Seen: 22:30 Chief complaint: foot pain Narrative: Mr. Jj is a 67M with PMH CHFrEF of 30-35%, HTN, CAD, CVA, asthma who presents to the hospital with lower extremity swelling an dpain. He was seen in the ED five days ago with similar symptoms. He at that time was saying he had shortness of breath. His labs were notable for elevated BNP. Ultimately his vitals signs were reassuring, his work of breathing steady, not requiring oxygen and he was discharged home with recommendation to increase lasix from 20mg to 40mg daily. He is a fairly bad historian. He states he is taking his medications, but he can not describe in detail what he is taking. He has not noted decrease in his lower extremity edema. He has shortness of breath worse with lying flat. He has no fevers/chills. He is coughing up thin foamy sputum. He feels chest tightness with breathing. Last month he was admitted with an asthma flare. In the ED, workup was done, vitals notable for afebrile, heart rate in the 60s, respiratory rate in the 16, blood pressure 150s/70s. Sats 98% on room air. Labs reviewed by me and with WBC 5.4, hgb 13.2. Na 136, k 3.1, creatinine 0.90. BNP 2660. Troponin negative. UA negative for nitrates, leuk esterase, bacteria, wbcs. Chest xray reviewed by me and negative for consolidation, and possible small left pleural effusion. EKG showed sinus bradycardia with prolonged qtc. He was ordered for lasix and potassium and admitted for further treatment. [facility] Medical History Chronic neck and back pain Coronary artery disease Hypertension Left hemiparesis Right rib fracture Stroke Systolic congestive 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, NYHA class 1 Surgical History History of cholecystectomy History of laparotomy History of shoulder surgery History of surgery on wrist Hx of fusion of cervical spine Family History Father Parkinsons Mother Cancer Brother Cancer Sister No significant medical problems Social History household members: other Smoking Status: Never smoker alcohol intake: current substance use type: does not use Meds Home Medications and Allergies Home Medications Medication Instructions Recorded Confirmed Type acetaminophen 500 mg tablet 1,000 mg PO Q6H PRN Pain (Scale 11/21/18 01/08/22 History Score 1-3) hydrocodone 5 mg-acetaminophen 325 1 tab PO Q6H PRN pain #10 tabs 06/20/21 01/08/22 Rx mg tablet azithromycin 250 mg tablet 500 mg PO DAILY #2 tabs 01/11/22 Rx (Zithromax Z-Nima) carvedilol 25 mg tablet 25 mg PO BID #60 tabs 01/11/22 07/22/22 Rx cefdinir 300 mg capsule 300 mg PO BID #20 caps 01/11/22 Rx losartan 100 mg tablet 100 mg PO DAILY #30 tabs 01/11/22 07/22/22 Rx amlodipine 5 mg tablet 5 mg PO BID 07/22/22 07/22/22 History amlodipine 5 mg tablet 5 mg PO BID #30 tabs 07/22/22 Rx carvedilol 25 mg tablet 25 mg PO BID #30 tabs 07/22/22 Rx losartan 100 mg tablet 100 mg PO DAILY #30 tabs 07/22/22 Rx oxycodone 5 mg capsule 5 mg PO Q8H PRN pain #10 caps 07/22/22 Rx Allergies Allergy/AdvReac Type Severity Reaction Status Date / Time NSAIDS (Non-Steroidal Allergy Severe Swelling Verified 07/22/22 13:49 Anti-Inflamma of Lip/Tongue/Throat chocolate flavor Allergy Intermediate Swelling Verified 07/22/22 13:49 of Lip/Tongue/Throat peanut Allergy Intermediate Swelling Verified 07/22/22 13:49 of Lip/Tongue/Throat strawberry Allergy Intermediate Swelling Verified 07/22/22 13:49 of Lip/Tongue/Throat celecoxib [From CELEBREX] Allergy Unknown Verified 07/22/22 13:49 lisinopril [LISINOPRIL] Allergy Unknown Verified 07/22/22 13:49 meloxicam [MELOXICAM] Allergy Unknown ANAPHYLAXSI Verified 07/22/22 13:49 S Penicillins [PENICILLINS] Allergy Unknown Verified 07/22/22 13:49 avocado AdvReac Intermediate Swelling Verified 07/22/22 13:49 of Lip/Tongue/Throat peas AdvReac Intermediate Swelling Verified 07/22/22 13:49 of Lip/Tongue/Throat sulfite AdvReac Intermediate Migraine Verified 07/22/22 13:49 Review of Systems Review of Systems Narrative: 14 systems reviewed and negative aside from what is noted in HPI Exam Vital Signs (past 8 hours): - 08/16/22 16:19 08/16/22 18:48 08/16/22 18:48 Temperature 98.9 F Pulse Rate 59 L 62 Respiratory Rate 16 Blood Pressure 151/71 H 177/67 H Pulse Oximetry 100 100 Oxygen Delivery Method Room Air 08/16/22 19:00 08/16/22 19:00 08/16/22 19:30 Temperature Pulse Rate 58 L Respiratory Rate Blood Pressure 175/81 H 192/86 H Pulse Oximetry 99 Oxygen Delivery Method 08/16/22 19:30 08/16/22 20:00 08/16/22 20:00 Temperature Pulse Rate 62 66 Respiratory Rate Blood Pressure 203/95 H Pulse Oximetry 100 100 Oxygen Delivery Method 08/16/22 20:30 08/16/22 20:30 08/16/22 21:00 Temperature Pulse Rate 70 66 Respiratory Rate Blood Pressure 188/81 H Pulse Oximetry 99 99 Oxygen Delivery Method 08/16/22 21:01 08/16/22 21:01 08/16/22 21:30 Temperature Pulse Rate 66 Respiratory Rate Blood Pressure 207/88 H 186/84 H Pulse Oximetry 100 Oxygen Delivery Method 08/16/22 21:30 08/16/22 22:00 08/16/22 22:30 Temperature Pulse Rate 64 61 57 L Respiratory Rate Blood Pressure Pulse Oximetry 99 98 99 Oxygen Delivery Method Room Air Oxygen Delivery Method Room Air Narrative Exam Narrative: GEN: no acute distress HEENT: moist mucous membranes, PERRL NECK: trachea midline, +jvd PULM: coarse breath sounds bilaterally, no wheezes CV: regular rate and rhythm, no murmurs ABD: soft, nontender, nondistended, no organomegaly, normal bowel sounds EXT: 1+ pitting edema NEURO: awake, alert, oriented, no focal deficits Objective Labs 08/16/22 18:00 08/16/22 18:00 Labs: Laboratory Results - last 24 hr 08/16/22 08/16/22 08/16/22 18:00 18:00 18:00 WBC 5.4 RBC 4.70 Hgb 13.2 L Hct 38.9 L MCV 82.9 MCH 28.2 MCHC 34.0 RDW 14.9 H Plt Count TNP Neut % (Auto) 76.7 H Lymph % (Auto) 10.3 L [place] % (Auto) 9.8 Eos % (Auto) 2.1 Baso % (Auto) 1.1 Neut # (Auto) 4100 Lymph # (Auto) 600 L [place] # (Auto) 500 Eos # (Auto) 100 Baso # (Auto) 100 Platelet Estimate Adequate on smear RBC Morphology Normal morphology PT 12.8 H INR 1.1 APTT 22 L Sodium 136 L Potassium 3.1 L Chloride 97 L Carbon Dioxide 34 H BUN 11 Creatinine 0.90 Estimated GFR > 60 BUN/Creatinine Ratio 12.2 Glucose 90 Uric Acid Calcium 9.1 Magnesium 2.1 Total Bilirubin 1.0 AST 35 ALT 20 Alkaline Phosphatase 97 Troponin I NT-Pro-B Natriuret Pep Total Protein 7.9 Albumin 4.2 Globulin 3.7 Albumin/Globulin Ratio 1.1 Lipase 268 Urine Color Urine Appearance Urine pH Ur Specific [place] Urine Protein Urine Glucose (UA) Urine Ketones Urine Occult Blood Urine Nitrate Urine Bilirubin Urine Urobilinogen Ur Leukocyte Esterase Urine RBC Urine WBC Urine Bacteria Ur Culture Indicated? 08/16/22 08/16/22 08/16/22 18:00 18:00 18:00 WBC RBC Hgb Hct MCV MCH MCHC RDW Plt Count Neut % (Auto) Lymph % (Auto) [place] % (Auto) Eos % (Auto) Baso % (Auto) Neut # (Auto) Lymph # (Auto) [place] # (Auto) Eos # (Auto) Baso # (Auto) Platelet Estimate RBC Morphology PT INR APTT Sodium Potassium Chloride Carbon Dioxide BUN Creatinine Estimated GFR BUN/Creatinine Ratio Glucose Uric Acid 5.6 Calcium Magnesium Cancelled Total Bilirubin AST ALT Alkaline Phosphatase Troponin I < 0.012 NT-Pro-B Natriuret Pep 2660 H Total Protein Albumin Globulin Albumin/Globulin Ratio Lipase Urine Color Urine Appearance Urine pH Ur Specific [place] Urine Protein Urine Glucose (UA) Urine Ketones Urine Occult Blood Urine Nitrate Urine Bilirubin Urine Urobilinogen Ur Leukocyte Esterase Urine RBC Urine WBC Urine Bacteria Ur Culture Indicated? 08/16/22 21:18 WBC RBC Hgb Hct MCV MCH MCHC RDW Plt Count Neut % (Auto) Lymph % (Auto) [place] % (Auto) Eos % (Auto) Baso % (Auto) Neut # (Auto) Lymph # (Auto) [place] # (Auto) Eos # (Auto) Baso # (Auto) Platelet Estimate RBC Morphology PT INR APTT Sodium Potassium Chloride Carbon Dioxide BUN Creatinine Estimated GFR BUN/Creatinine Ratio Glucose Uric Acid Calcium Magnesium Total Bilirubin AST ALT Alkaline Phosphatase Troponin I NT-Pro-B Natriuret Pep Total Protein Albumin Globulin Albumin/Globulin Ratio Lipase Urine Color Yellow Urine Appearance Clear Urine pH 8.5 H Ur Specific [place] 1.015 Urine Protein Trace H Urine Glucose (UA) Negative Urine Ketones Negative Urine Occult Blood Negative Urine Nitrate Negative Urine Bilirubin Negative Urine Urobilinogen 1.0 Ur Leukocyte Esterase Negative Urine RBC 0-1/hpf Urine WBC None seen Urine Bacteria None seen Ur Culture Indicated? Cult not indicated Assessment & Plan Assessment & Plan narrative: 1. Acute respiratory distress secondary acute systolic CHF exacerbation -suspect etiology most likely to chf exacerbation, though also possibility of infectious or reactive airway disease -patient describes lower extremity edema, orthopnea, has lower extremity edema, elevated jvd, and elevated bnp -has been ordered for IV lasix -goal net negative 2-3L daily -low salt diet, fluid restriction -previous echo with EF 30-35% -repeat echo -plan to start beta-pawel and tarik/arb likely tomorrow -on admit has low potassium, repletion begun in ED -trend troponins -EKG showed sinus bradycardia, prolonged QTc, careful with qt prolonging medications 2. History of asthma -continue duonebs -if not improving with diuresis consider starting antibioics, steroids 3. History of CVA -no residual defecitis 4. Hypertension -hold home medications for tonight I have discussed plan and obtained history from the patient. I have discussed plan of care with ED physician and bedside nurse. I have reviewed labs, chest xray, ekg, and previous medical notes. CODE: DNR/DNI Proxy: LEXI [employer] [facility] - Meds 'Current medications' to include all prescriptions, [id number] products, herbals, cannabis/cannabidiol products, and vitamin/mineral/dietary (nutritional) supplements. I have utilized all available resources to obtain, update, or review the patient?s current medications. [If Yes, STOP here]: Yes
[2022-08-16] MEDS: ALBUTEROL/IPRATROPIUM 3 ML AMPUL INH (22:42)
[2022-08-16 22:48] LABS: Adenovirus Not Detected (Not Detect); B. parapertussis Not Detected (Not Detecte); Bordetella pertussis Not Detected (Not Detecte); Chlamydophila pneumoniae Not Detected (Not Detect); Coronavirus 229E Not Detected (Not Detect); Coronavirus HKU1 Not Detected (Not Detect); Coronavirus NL 63 Not Detected (Not Detect); Coronavirus OC43 Not Detected (Not Detect); Human Metapneumovirus Not Detected (Not Detect); Human Rhinovirus/Enterovirus Not Detected (Not Detect); Influenza A Not Detected (Not Detect); Influenza B Not Detected (Not Detect); Mycoplasma pneumoniae Not Detected (Not Detect); Parainfluenza Virus 1 Not Detected (Not Detect); Parainfluenza Virus 2 Not Detected (Not Detect); Parainfluenza Virus 3 Not Detected (Not Detect); Parainfluenza Virus 4 Not Detected (Not Detect); Respiratory Syncytial Virus Not Detected (Not Detect); SARS- CoV-2 Not Detected (Not Detecte)
[2022-08-17] VITALS (7 sets, daily range): BP systolic 134–189; BP diastolic 67–94; PULSE 56–77; RESP 16–24; TEMP 36.3–37.1; O2SAT 85–99
[2022-08-17] MEDS: ACETAMINOPHEN 325 MG TABLET 650 MG PO ×2 (00:07→08:47)
[2022-08-17] MEDS: GABAPENTIN 300 MG CAPSULE PO ×3 (00:07→20:32)
[2022-08-17] MEDS: FUROSEMIDE 40 MG/4 ML VIAL IV ×2 (00:09→15:56)
[2022-08-17 00:51] LABS: MRSA (Nasal) PCR Not Detected (Not Detect)
[2022-08-17 05:08] LABS: Add Manual Diff / Slide Review NO; Basophils Absolute Auto 100 /uL (0-100); Basophils Percent Auto 1.1 % (0-2); Eosinophils Absolute Auto 100 /uL (0-450); Eosinophils Percent Auto 2.9 % (2-4); Hematocrit 38.6 % (41-53); Lymphocytes Absolute Auto 600 /uL (1100-4500); Lymphocytes Percent Auto 11.7 % (25-40); Mean Corpuscular HGB Conc 33.6 % (30-36); Mean Corpuscular Hemoglobin 28.1 PG (26-34); Mean Corpuscular Volume 83.4 fL (80-100); Monocytes Absolute Auto 500 /uL (0-900); Monocytes Percent Auto 9.4 % (3-14); Neutrophils Absolute Auto 3600 /uL (1500-7000); Neutrophils Percent Auto 74.9 % (50-75); Platelet Count 223 X10^3/uL (150-400); Red Blood Cell Count 4.62 X10^6/uL (4.5-5.9); Red Cell Distribution Width 14.7 % (11.6-14.8); White Blood Cell Count 4.8 X10^3/uL (4.5-11.0)
[2022-08-17 05:23] LABS: Blood Urea Nitrogen 13 mg/dL (9-20); Calcium 8.8 mg/dL (8.4-10.2); Carbon Dioxide 34 mmol/L (22-32); Chloride 99 mmol/L (98-107); Estimated Glomerular Filt Rate > 60 mL/min (>60); Glucose 100 mg/dL (80-110); HEMOLYSIS < 15 (0-50); Magnesium 1.9 mg/dL (1.6-2.3); Potassium 3.2 mmol/L (3.4-5.1); Sodium 139 mmol/L (137-145)
[2022-08-17 05:33] LABS: Troponin I < 0.012 ng/mL (0.01-0.034)
--- NOTE | 2022-08-17 06:16 | DI.ECHO.S_ITS ---
:Name: CUONG DUPONT JR Study Date: 08/17/2022 Height: 67 in : :[facility] ReadingLocation: Weight: 189 lb : : Gender: Male BSA: 2.0 m2 : :: 1955 Age: 67 yrs BP: 134/67 mmHg: :Reason For Study: CONGESTIVE HEART FAILURE EXACERBATION : :Ordering Physician: CHICHO, : :FABIOLA DOUGHERTY Performed By: Toshia Upton : :Referring: FABIOLA VALENTINO MD : + + Interpretation Summary The left ventricle is normal in size. Left ventricular systolic function is low normal. The ejection fraction is estimated to be 50-55%. LVEF is slightly less dynamic in comparison to prior study. There is probable hypokinesis along the anterolateral and basal inferolateral segments. LV wall motion abnormalities are new since prior study. Diastolic parameters suggest probable normal left ventricular diastolic function and normal filling pressures. The right ventricle is normal in size and function. Pulmonary artery pressures cannot be estimated because of the lack of a measurable TR jet velocity. The left atrium is moderately dilated. The right atrium is mildly dilated. There is mild to moderate mitral regurgitation. There is no other significant valvular heart disease. The aortic root is normal size. Procedure: A two-dimensional transthoracic echocardiogram with color flow and Doppler was performed. The study quality was technically adequate. Comparison is made with the echocardiogram of 02/01/2022. The patient was in sinus bradycardia with heart rates between 53-63 bpm during the exam. Left Ventricle: The left ventricle is normal in size. There is mild concentric left ventricular hypertrophy. Left ventricular systolic function is low normal. The ejection fraction is estimated to be 50-55%. Septal motion is consistent with conduction abnormality. There is probable hypokinesis along the anterolateral and basal inferolateral segments. Diastolic parameters suggest probable normal left ventricular diastolic function and normal filling pressures. Right Ventricle: The right ventricle is normal in size and function. Atria: The left atrium is moderately dilated. The right atrium is mildly dilated. There is no Doppler evidence for an interatrial shunt. Mitral Valve: The mitral valve leaflets appear mildly thickened, but open well. There is mild mitral annular calcification. There is mild to moderate mitral regurgitation. Aortic Valve: The aortic valve opens well. The aortic valve is slightly calcified. There is no aortic valve stenosis. No aortic regurgitation is present. Tricuspid Valve: The tricuspid valve is normal in structure and function. There is trace tricuspid regurgitation. Pulmonary artery pressures cannot be estimated because of the lack of a measurable TR jet velocity. Pulmonic Valve: The pulmonic valve is not well seen, but is grossly normal. There is no pulmonic valvular regurgitation. There is no other significant valvular heart disease. Great Vessels: The aortic root is normal size. The dimensions of the ascending aorta are normal. The IVC is of normal diameter and collapses greater than 50% with a sniff. This suggests a low right atrial pressure of 3 mm Hg. Pericardium/ Pleura There is no pericardial effusion. There is no pleural effusion. MMode/2D Measurements & Calculations LVIDd: 5.3 cm LVOT diam: 2.2 cm LVIDs: 3.9 cm Ao root diam: 3.5 cm FS: 26.2 % asc Aorta Diam: 3.3 cm EPSS: 0.79 cm IVSd: 1.2 cm LVPWd: 1.00 cm LV pina. diameter/BSA (cm/m^2): 2.7 LV sys. diameter/BSA (cm/m^2): 2.0 LA A2 area: 25.4 cm2 RA long axis: 6.3 cm LA A4 area: 24.6 cm2 RA area: 21.4 cm2 LA length (vol): 6.4 cm RA vol: 61.5 ml LA vol: 82.7 ml RA : 31.2 ml/m2 LA vol index: 41.9 ml/m2 IVC diam: 1.6 cm RVD1 (basal): 3.3 cm RVD2 (mid): 3.2 cm TAPSE: 2.2 cm Doppler Measurements & Calculations Ao V2 max: 144.0 cm/sec LVOT Max Won: 88.7 cm/sec Ao V2 mean: 101.1 cm/sec LV V1 max P.1 mmHg Ao max P.3 mmHg LV V1 VTI: 21.5 cm Ao mean P.5 mmHg NELIA(I,D): 2.6 cm2 Ao V2 VTI: 32.9 cm NELIA(V,D): 2.4 cm2 sev ratio: 0.65 NELIA indexed to BSA (cm^2/m^2): 1.3 MV E max won: 83.2 cm/sec PA V2 max: 81.6 cm/sec MV A max won: 52.7 cm/sec PA V2 mean: 56.8 cm/sec MV E/A: 1.6 PA mean P.4 mmHg Med Peak E' Won: 6.4 cm/sec PA pr(Accel): 36.2 mmHg E/E' med: 13.0 Lat Peak E' Won: 6.2 cm/sec E/E' lat: 13.5 E/e' average: 13.2 MV dec time: 0.22 sec SV(LVOT): 84.6 ml Reading Physician:08:49 AM
[2022-08-17] MEDS: ENOXAPARIN 40 MG/0.4 ML SYRINGE SUBCUT (08:47)
[2022-08-17] MEDS: POTASSIUM CHLORIDE 20 MEQ TAB 40 MEQ PO ×2 (11:07→15:56)
--- NOTE | 2022-08-17 11:31 | DIET.CONS ---
Addendum entered by Ирина Looney 08/17/22 11:55: RD agrees with quality assurance intern note below. Original Note: Dietary Consultation Note Admission Date: 08/16/2022 22:22 Assessment: 67 y/o M with PMH CHFrEF of 30-35%, HTN, CAD, CVA, asthma who presents to the hospital with lower extremity swelling and pain. RD consult for recent 20 lb wt loss and fluid retention. Met with pt at bedside to discuss recent wt loss. Pt reports unintended wt loss of ~80 lbs in 2 yrs d/t being constantly sick (digestive problems, pneumonia several times, many hospitalizations). Wt hx: 07/12/20: 127 kg - 33.6% wt loss in ~ 2 yrs 06/09/21: 99.79 kg - 14.2% wt loss in ~ 1 yr 01/08/22: 97.9 kg - 12.5% wt loss in 7 months (severe) Pt reports feeling weaker, SOB, however, appetite is good. Pt is missing top and bottom teeth and has no dentures. Pt seems to have stabilized weight over past several months. Ht: 170.18 cm Wt: 90 kg BMI: 29.6 UBW: 119.1 kg (pt reported) Last BM: 08/17/22 (08/17/22 09:54) MNA: 8 Tristan Score: 22 Diet: 08/16/22 Breakfast Low Sodium Diet (2gm) Diet Modifications: 08/17/22 Breakfast Fluid Restriction Diet Diet Modifications: Total fluid amount: 1,500 Amount allotted to patient trays: 0 Free water included in total: No Fluid in addition to trays: 8116-1444 amount: 1,000 [id number] amount: 500 Nutrition Percent Meal Consumed 100% 08/17/22 09:08 Labs: RBC 4.62 X10^6/uL (4.5-5.9) 08/17/22 03:50 Hgb 13.0 g/dL (13.5-17.5) L 08/17/22 03:50 Hct 38.6 % (41-53) L 08/17/22 03:50 Creatinine 1.00 mg/dL (0.66-1.25) 08/17/22 03:50 NT-Pro-B Natriuret Pep 2660 pg/mL (<125) H 08/16/22 18:00 Nutrition Diagnosis: chronic moderate protein calorie malnutrition r/t constantly sick with multiple hospitalization over 2 yrs aeb 12.6% unintended wt loss in 7 months (severe), MNA 8, hospitalizations for GI problems and pneumonia, no teeth or dentures. Interventions: 1. Communicated with kitchen pt edentulous, focus on soft foods. 2. Discussed the importance of reducing salt intake to help with decreasing fluid retention. EER: 2150 kcal (25 kcal/kg per BMI), 95-110 g protein (1.1-1.3 per mod PCM) Monitoring/Evaluations: RD consult prn. Electronically Signed by: Rosalind Huff 08/17/22 11:31 Clinical Dietitian [address] [address]
--- NOTE | 2022-08-17 12:23 | P.PN_ITS ---
Subjective Subjective Interval history: 67 year old male admitted with CHF exacerbation. He continues to complain of pain in his bilateral feet today. No change in his breathing symptoms thus far today. No fever, chills, nausea, vomiting or abdominal pain. Exam Vital Signs (past 8 hours): - 08/17/22 08:30 08/17/22 08:00 08/17/22 12:00 Temperature 97.9 F 98.6 F Pulse Rate 65 63 Respiratory Rate 16 24 Blood Pressure 162/72 H 178/86 H Pulse Oximetry 99 99 Oxygen Delivery Method Room Air Oxygen Flow Rate 0 0 Oxygen Delivery Method Room Air Oxygen Flow Rate 0 Narrative Exam Narrative: GEN: no acute distress HEENT: moist mucous membranes, PERRL NECK: trachea midline, +jvd PULM: diffuse mild expiratory wheezing, otherwise no rhonchi or rales bilaterally. CV: regular rate and rhythm, no murmurs ABD: soft, nontender, nondistended, no organomegaly, normal bowel sounds EXT: trace to 1+ pitting edema b/l LE NEURO: awake, alert, oriented, no focal deficits Objective Labs 08/17/22 03:50 08/17/22 03:50 Labs: Laboratory Results - last 24 hr 08/16/22 08/16/22 08/16/22 18:00 18:00 18:00 WBC 5.4 RBC 4.70 Hgb 13.2 L Hct 38.9 L MCV 82.9 MCH 28.2 MCHC 34.0 RDW 14.9 H Plt Count TNP Neut % (Auto) 76.7 H Lymph % (Auto) 10.3 L [place] % (Auto) 9.8 Eos % (Auto) 2.1 Baso % (Auto) 1.1 Neut # (Auto) 4100 Lymph # (Auto) 600 L [place] # (Auto) 500 Eos # (Auto) 100 Baso # (Auto) 100 Platelet Estimate Adequate on smear RBC Morphology Normal morphology PT 12.8 H INR 1.1 APTT 22 L Sodium 136 L Potassium 3.1 L Chloride 97 L Carbon Dioxide 34 H BUN 11 Creatinine 0.90 Estimated GFR > 60 BUN/Creatinine Ratio 12.2 Glucose 90 Uric Acid Calcium 9.1 Magnesium 2.1 Total Bilirubin 1.0 AST 35 ALT 20 Alkaline Phosphatase 97 Troponin I NT-Pro-B Natriuret Pep Total Protein 7.9 Albumin 4.2 Globulin 3.7 Albumin/Globulin Ratio 1.1 Lipase 268 Urine Color Urine Appearance Urine pH Ur Specific [place] Urine Protein Urine Glucose (UA) Urine Ketones Urine Occult Blood Urine Nitrate Urine Bilirubin Urine Urobilinogen Ur Leukocyte Esterase Urine RBC Urine WBC Urine Bacteria Ur Culture Indicated? Nasal Screen MRSA (PCR) Chlamy pneumoniae PCR Adenovirus (PCR) B. pertussis DNA (PCR) B.parapertussis DNA PCR Coronavirus OC43 (PCR) Coronavirus HKU1 (PCR) Coronavirus 229E (PCR) SARS-CoV-2 (PCR) Coronavirus NL63 (PCR) Human Metapneumovir PCR Influenza Type A (PCR) Influenza Type B (PCR) M. pneumoniae (PCR) Parainfluenza 1 (PCR) Parainfluenza 2 (PCR) Parainfluenza 3 (PCR) Parainfluenza 4 (PCR) RSV (PCR) Entero/Rhino (PCR) 08/16/22 08/16/22 08/16/22 18:00 18:00 18:00 WBC RBC Hgb Hct MCV MCH MCHC RDW Plt Count Neut % (Auto) Lymph % (Auto) [place] % (Auto) Eos % (Auto) Baso % (Auto) Neut # (Auto) Lymph # (Auto) [place] # (Auto) Eos # (Auto) Baso # (Auto) Platelet Estimate RBC Morphology PT INR APTT Sodium Potassium Chloride Carbon Dioxide BUN Creatinine Estimated GFR BUN/Creatinine Ratio Glucose Uric Acid 5.6 Calcium Magnesium Cancelled Total Bilirubin AST ALT Alkaline Phosphatase Troponin I < 0.012 NT-Pro-B Natriuret Pep 2660 H Total Protein Albumin Globulin Albumin/Globulin Ratio Lipase Urine Color Urine Appearance Urine pH Ur Specific [place] Urine Protein Urine Glucose (UA) Urine Ketones Urine Occult Blood Urine Nitrate Urine Bilirubin Urine Urobilinogen Ur Leukocyte Esterase Urine RBC Urine WBC Urine Bacteria Ur Culture Indicated? Nasal Screen MRSA (PCR) Chlamy pneumoniae PCR Adenovirus (PCR) B. pertussis DNA (PCR) B.parapertussis DNA PCR Coronavirus OC43 (PCR) Coronavirus HKU1 (PCR) Coronavirus 229E (PCR) SARS-CoV-2 (PCR) Coronavirus NL63 (PCR) Human Metapneumovir PCR Influenza Type A (PCR) Influenza Type B (PCR) M. pneumoniae (PCR) Parainfluenza 1 (PCR) Parainfluenza 2 (PCR) Parainfluenza 3 (PCR) Parainfluenza 4 (PCR) RSV (PCR) Entero/Rhino (PCR) 08/16/22 08/16/22 08/16/22 21:18 21:25 23:00 WBC RBC Hgb Hct MCV MCH MCHC RDW Plt Count Neut % (Auto) Lymph % (Auto) [place] % (Auto) Eos % (Auto) Baso % (Auto) Neut # (Auto) Lymph # (Auto) [place] # (Auto) Eos # (Auto) Baso # (Auto) Platelet Estimate RBC Morphology PT INR APTT Sodium Potassium Chloride Carbon Dioxide BUN Creatinine Estimated GFR BUN/Creatinine Ratio Glucose Uric Acid Calcium Magnesium Total Bilirubin AST ALT Alkaline Phosphatase Troponin I NT-Pro-B Natriuret Pep Total Protein Albumin Globulin Albumin/Globulin Ratio Lipase Urine Color Yellow Urine Appearance Clear Urine pH 8.5 H Ur Specific [place] 1.015 Urine Protein Trace H Urine Glucose (UA) Negative Urine Ketones Negative Urine Occult Blood Negative Urine Nitrate Negative Urine Bilirubin Negative Urine Urobilinogen 1.0 Ur Leukocyte Esterase Negative Urine RBC 0-1/hpf Urine WBC None seen Urine Bacteria None seen Ur Culture Indicated? Cult not indicated Nasal Screen MRSA (PCR) Not detected Chlamy pneumoniae PCR Not detected Adenovirus (PCR) Not detected B. pertussis DNA (PCR) Not detected B.parapertussis DNA PCR Not detected Coronavirus OC43 (PCR) Not detected Coronavirus HKU1 (PCR) Not detected Coronavirus 229E (PCR) Not detected SARS-CoV-2 (PCR) Not detected Coronavirus NL63 (PCR) Not detected Human Metapneumovir PCR Not detected Influenza Type A (PCR) Not detected Influenza Type B (PCR) Not detected M. pneumoniae (PCR) Not detected Parainfluenza 1 (PCR) Not detected Parainfluenza 2 (PCR) Not detected Parainfluenza 3 (PCR) Not detected Parainfluenza 4 (PCR) Not detected RSV (PCR) Not detected Entero/Rhino (PCR) Not detected 08/17/22 08/17/22 03:50 03:50 WBC 4.8 RBC 4.62 Hgb 13.0 L Hct 38.6 L MCV 83.4 MCH 28.1 MCHC 33.6 RDW 14.7 Plt Count 223 Neut % (Auto) 74.9 Lymph % (Auto) 11.7 L [place] % (Auto) 9.4 Eos % (Auto) 2.9 Baso % (Auto) 1.1 Neut # (Auto) 3600 Lymph # (Auto) 600 L [place] # (Auto) 500 Eos # (Auto) 100 Baso # (Auto) 100 Platelet Estimate RBC Morphology PT INR APTT Sodium 139 Potassium 3.2 L Chloride 99 Carbon Dioxide 34 H BUN 13 Creatinine 1.00 Estimated GFR > 60 BUN/Creatinine Ratio 13.0 Glucose 100 Uric Acid Calcium 8.8 Magnesium 1.9 Total Bilirubin AST ALT Alkaline Phosphatase Troponin I < 0.012 NT-Pro-B Natriuret Pep Total Protein Albumin Globulin Albumin/Globulin Ratio Lipase Urine Color Urine Appearance Urine pH Ur Specific [place] Urine Protein Urine Glucose (UA) Urine Ketones Urine Occult Blood Urine Nitrate Urine Bilirubin Urine Urobilinogen Ur Leukocyte Esterase Urine RBC Urine WBC Urine Bacteria Ur Culture Indicated? Nasal Screen MRSA (PCR) Chlamy pneumoniae PCR Adenovirus (PCR) B. pertussis DNA (PCR) B.parapertussis DNA PCR Coronavirus OC43 (PCR) Coronavirus HKU1 (PCR) Coronavirus 229E (PCR) SARS-CoV-2 (PCR) Coronavirus NL63 (PCR) Human Metapneumovir PCR Influenza Type A (PCR) Influenza Type B (PCR) M. pneumoniae (PCR) Parainfluenza 1 (PCR) Parainfluenza 2 (PCR) Parainfluenza 3 (PCR) Parainfluenza 4 (PCR) RSV (PCR) Entero/Rhino (PCR) [facility] Medical History Chronic neck and back pain Coronary artery disease Hypertension Left hemiparesis Right rib fracture Stroke Systolic congestive 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, NYHA class 1 Surgical History History of cholecystectomy History of laparotomy History of shoulder surgery History of surgery on wrist Hx of fusion of cervical spine Family History Father Parkinsons Mother Cancer Brother Cancer Sister No significant medical problems Social History household members: spouse and other Smoking Status: Former smoker alcohol intake: former substance use type: does not use Assessment & Plan Assessment & Plan narrative: 1. Acute respiratory distress secondary to acute on chronic systolic heart failure -suspect etiology most likely to chf exacerbation, though also possibility of infectious or reactive airway disease -patient describes lower extremity edema, orthopnea, has lower extremity edema, elevated jvd, and elevated bnp -continue IV lasix 40 mg BID -goal net negative 2-3L daily -low salt diet, fluid restriction -previous echo with EF 30-35% -repeat echo ordered -plan to start beta-pawel and tarik/arb likely tomorrow -on admit has low potassium, repletion begun in ED, follow closely with diuresis. -troponin negative x2, no further troponins necessary, unlikely ACS. -EKG showed sinus bradycardia, prolonged QTc, careful with qt prolonging medications 2. History of asthma, likely without acute exacerbation -continue duonebs -if not improving with diuresis consider starting antibioics, steroids 3. History of CVA -no residual defecitis 4. Hypertension -hold home medications for tonight I have discussed plan and obtained history from the patient. I have discussed plan of care with ED physician and bedside nurse. I have reviewed labs, chest xray, ekg, and previous medical notes. CODE: DNR/DNI Proxy: LEXI Rose VTE Deep Vein Thrombosis/Pulmonary Embolism Present on Admission: No
[2022-08-17] MEDS: LOSARTAN 50 MG TABLET 100 MG PO (12:48)
[2022-08-17] MEDS: CITALOPRAM 10 MG TABLET 20 MG PO (12:49)
--- NOTE | 2022-08-17 13:05 | CM.DANOTE ---
Pt is a 67 y.o. M who was admitted on 08/16/22 for Foot Pain. [facility] for insurance and his PCP is Margaret Siegel. EMR was reviewed. Per MD, Pt has PMH of CAD, HTN, CVA, cardiomegaly, and L systolic CHF. Pt admitted for CHF exacerbation. SW met with pt this morning to discuss discharge needs and introduced self and role. Pt confirms that he lives in an apartment with his friend, Arianne. Pt verified that Azucena, his sister, is pt POA still. Pt denies use of DME's other than occasionally use of a cane and states that he does not drive POV but relies on Arianne for transportation but currently their vehicle is broken down and not in use. Pt denies using home O2. Pt denies any hx of HH or SNF and feels he has been steady in ambulation until the past couple days with his swollen and painful feet. Nursing staff to ambulate pt today around lunchtime to determine if any PT needs to be ordered. Pt only current concern is he may need a ride home from the hospital and unsure if he has Medicaid transportation. SW called [facility] and confirmed that pt has Transportation benefits if needed at discharge. Plan: SW to follow for ambulation to determine if any needs are present and to r/o any HH needs and possible Medicaid transport at d/c. BERT Mancilla Discharge Planning/Care Management CM Discharge Assessment Start: 08/17/22 13:01 Freq: Status: Active Protocol: Document 08/17/22 13:02 (Rec: 08/17/22 13:05 [id number]) Discharge Planning Assessment Assigned Sewing Machine Maintenance Mechanic BERT Arriaza DPOA/Assigned Designee Name sister Azucena Contact Information [phone] Advance Directives? Yes: DPOA for HC and POA Advance Directives on File Yes History Provided By Patient,Medical Record Has Patient been admitted in last 30 No days? Comment last admit Dec 2021 last year , discharged home Prior Living Arrangements Apartment/Condo Household Members other Comment friend Arianne Type of transporation used prior to Relies on Others admit Independent with ADL's Yes Is patient alert and oriented? Yes Needs Assistance With Managing Medications Caregiver for Another No DME Already Rented / Owned Cane Patient/Family Preference Home with Home Health,OP PT Therapy Comment Pending progress, might benefit from HH Barriers to Discharge No Discharge Plan Home Transportation Arrangement may need assist with setting up transport home Additional Comment Waiting for further recommendations Whiteboard Updated in Patient Room with Yes name and ext. # of Sewing Machine Maintenance Mechanic Review Status In Process Please Provide Date Initial DC 08/17/22 Assessment Was Performed Next Review Type Continued Stay Review
[2022-08-17] MEDS: OXYCODONE IR 5 MG TABLET PO ×3 (13:57→23:15)
[2022-08-17] MEDS: carvediloL 12.5 MG TABLET 25 MG PO (20:32)
[2022-08-17] MEDS: AMLODIPINE 5 MG TABLET PO (20:33)
[2022-08-17] MEDS: SODIUM CHLORIDE 0.9% FLUSH 10 ML IV (20:33)
[2022-08-18] VITALS: BP 173/92; PULSE 65; RESP 17; TEMP 36.4; O2SAT 96
[2022-08-18] MEDS: OXYCODONE IR 5 MG TABLET PO ×2 (03:29→08:07)
[2022-08-18 04:00] VITALS: BP 194/94; PULSE 66; RESP 19; TEMP 36.5; O2SAT 99
[2022-08-18 04:41] LABS: Add Manual Diff / Slide Review NO; Basophils Absolute Auto 100 /uL (0-100); Basophils Percent Auto 2.5 % (0-2); Eosinophils Absolute Auto 200 /uL (0-450); Eosinophils Percent Auto 2.8 % (2-4); Hemoglobin 13.7 g/dL (13.5-17.5); Lymphocytes Absolute Auto 700 /uL (1100-4500); Lymphocytes Percent Auto 12.2 % (25-40); Mean Corpuscular HGB Conc 34.2 % (30-36); Mean Corpuscular Hemoglobin 28.2 PG (26-34); Mean Corpuscular Volume 82.5 fL (80-100); Monocytes Absolute Auto 400 /uL (0-900); Monocytes Percent Auto 7.2 % (3-14); Neutrophils Absolute Auto 4500 /uL (1500-7000); Neutrophils Percent Auto 75.3 % (50-75); Platelet Count 232 X10^3/uL (150-400); Red Blood Cell Count 4.85 X10^6/uL (4.5-5.9); Red Cell Distribution Width 15.2 % (11.6-14.8)
[2022-08-18 04:43] VITALS: BP 185/94
[2022-08-18 04:57] LABS: BUN Creatinine Ratio 20.6 (6-22); Blood Urea Nitrogen 20 mg/dL (9-20); Calcium 9.2 mg/dL (8.4-10.2); Carbon Dioxide 31 mmol/L (22-32); Chloride 104 mmol/L (98-107); Estimated Glomerular Filt Rate > 60 mL/min (>60); Glucose 105 mg/dL (80-110); HEMOLYSIS < 15 (0-50); Magnesium 2.1 mg/dL (1.6-2.3); Potassium 3.6 mmol/L (3.4-5.1); Sodium 140 mmol/L (137-145)
[2022-08-18 05:21] VITALS: BP 185/94; PULSE 65
[2022-08-18] MEDS: LOSARTAN 50 MG TABLET 150 MG PO ×2 (05:21→08:07)
[2022-08-18 06:07] VITALS: BP 171/79
[2022-08-18] MEDS: FUROSEMIDE 40 MG/4 ML VIAL IV (07:34)
[2022-08-18] MEDS: ENOXAPARIN 40 MG/0.4 ML SYRINGE SUBCUT (08:06)
[2022-08-18] MEDS: GABAPENTIN 300 MG CAPSULE PO (08:07)
[2022-08-18] MEDS: CITALOPRAM 10 MG TABLET 20 MG PO (08:08)
[2022-08-18] MEDS: carvediloL 12.5 MG TABLET 25 MG PO (08:08)
[2022-08-18] MEDS: AMLODIPINE 5 MG TABLET PO (08:08)
[2022-08-18] MEDS: SODIUM CHLORIDE 0.9% FLUSH 10 ML IV (08:09)
[2022-08-18 08:43] VITALS: BP 185/90; PULSE 72; RESP 22; TEMP 36.6; O2SAT 100
--- NOTE | 2022-08-18 09:01 | P.DS_ITS ---
History of Present Illness History of Present Illness Date Patient Seen: 08/18/22 Chief complaint: foot pain Narrative: Per admitting provider, Mr. Jj is a 67M with PMH CHFrEF of 30-35%, HTN, CAD, CVA, asthma who presents to the hospital with lower extremity swelling an dpain. He was seen in the ED five days ago with similar symptoms. He at that time was saying he had shortness of breath. His labs were notable for elevated BNP. Ultimately his vitals signs were reassuring, his work of breathing steady, not requiring oxygen and he was discharged home with recommendation to increase lasix from 20mg to 40mg daily. He is a fairly bad historian. He states he is taking his medicati ons, but he can not describe in detail what he is taking. He has not noted decrease in his lower extremity edema. He has shortness of breath worse with lying flat. He has no fevers/chills. He is coughing up thin foamy sputum. He feels chest tightness with breathing. Last month he was admitted with an asthma flare. In the ED, workup was done, vitals notable for afebrile, heart rate in the 60s, respiratory rate in the 16, blood pressure 150s/70s. Sats 98% on room air. Labs reviewed by me and with WBC 5.4, hgb 13.2. Na 136, k 3.1, creatinine 0.90. BNP 2660. Troponin negative. UA negative for nitrates, leuk esterase, bacteria, wbcs. Chest xray reviewed by me and negative for consolidation, and possible small left pleural effusion. EKG showed sinus bradycardia with prolonged qtc. He was ordered for lasix and potassium and admitted for further treatment. Discharge Providers Provider Date of admission: 08/16/22 22:22 Discharge Date: 08/18/22 Primary care physician: Doctor Alin MD Consults: 08/16/22 23:15 Consult to Dietitian, Adult Routine Comment: Reason For Exam: recent 20lb wt loss and fluid retention Consult to [facility] [place] - Strip Winder Routine Comment: Discharge provider: Teofilo Whittington DO Summary Hospital Course Discharge Diagnosis: 1. Acute respiratory distress secondary to acute on chronic diastolic heart failure 2. History of asthma, likely without acute exacerbation 3. History of CVA 4. Hypertension 5. Hypokalemia Hospital Course: This is a 67 year old male admitted with respiratory distress due to CHF exacerbation. He was diuresed with improvement in his symptoms. He appeared euvolemic at the time of discharge, and he did not require oxygen. 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 EF was around 50% on TTE, with some wall motion abnormalitites. He had no chest pain on presentation, and negative troponins so additional follow up with PCP or his cafe attendant is recommended. Time Spent with Patient Time spent: Greater than 30 minutes Exam Vital Signs (past 8 hours): - 08/18/22 04:00 08/18/22 04:43 08/18/22 05:21 Temperature 97.7 F Pulse Rate 66 65 Respiratory Rate 19 Blood Pressure 194/94 H 185/94 H 185/94 H Pulse Oximetry 99 Oxygen Delivery Method Oxygen Flow Rate 08/18/22 06:07 08/18/22 07:00 08/18/22 08:43 Temperature 97.9 F Pulse Rate 72 Respiratory Rate 22 Blood Pressure 171/79 H 185/90 H Pulse Oximetry 100 Oxygen Delivery Method Room Air Oxygen Flow Rate 0 Oxygen Delivery Method Room Air Oxygen Flow Rate 0 Narrative Exam Narrative: GEN: no acute distress HEENT: moist mucous membranes, PERRL NECK: trachea midline, no jvd PULM: no wheezing, rhonchi or rales CV: regular rate and rhythm, no murmurs ABD: soft, nontender, nondistended, no organomegaly, normal bowel sounds EXT: no edema bilaterally NEURO: awake, alert, oriented, no focal deficits Objective Labs 08/18/22 04:28 08/18/22 04:28 Labs: Laboratory Results - last 24 hr 08/18/22 08/18/22 08/18/22 04:28 04:28 04:28 WBC 6.0 RBC 4.85 Hgb 13.7 Hct 40.0 L MCV 82.5 MCH 28.2 MCHC 34.2 RDW 15.2 H Plt Count 232 Neut % (Auto) 75.3 H Lymph % (Auto) 12.2 L [place] % (Auto) 7.2 Eos % (Auto) 2.8 Baso % (Auto) 2.5 H Neut # (Auto) 4500 Lymph # (Auto) 700 L [place] # (Auto) 400 Eos # (Auto) 200 Baso # (Auto) 100 Sodium 140 Potassium Cancelled 3.6 Chloride 104 Carbon Dioxide 31 BUN 20 Creatinine 0.97 Estimated GFR > 60 BUN/Creatinine Ratio 20.6 Glucose 105 Calcium 9.2 Magnesium 2.1 PFSH Medical History Chronic neck and back pain Coronary artery disease Hypertension Left hemiparesis Right rib fracture Stroke Systolic congestive 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, NYHA class 1 Surgical History History of cholecystectomy History of laparotomy History of shoulder surgery History of surgery on wrist Hx of fusion of cervical spine Family History Father Parkinsons Mother Cancer Brother Cancer Sister No significant medical problems Social History household members: other Smoking Status: Former smoker alcohol intake: former substance use type: does not use Discharge Plan Discharge Plan Patient Disposition: Home Provider Discharge Comment: You were admitted to the hospital with shortness of breath and foot pain / swelling. This improved with removal of fluid. Your echocardiogram shows some new changes but is functioning well overall. Follow up with your PCP as soon as possible, or your cafe attendant. Discharge orders & Medications Prescriptions: New gabapentin [Neurontin] 300 mg Capsule 300 mg PO TID 30 Days Qty: 90 0RF oxycodone 5 mg Tablet 5 mg PO Q4HR PRN (Reason: Pain, Moderate (4-6)) 7 Days Qty: 15 0RF Continued carvedilol 25 mg tablet 25 mg PO BID Qty: 60 0RF Rx Instructions: must administer with a meal/food losartan 100 mg tablet 100 mg PO DAILY Qty: 30 0RF amlodipine 5 mg tablet 5 mg PO BID Qty: 30 0RF acetaminophen 500 mg Tablet 1,000 mg PO Q6H PRN (Reason: Pain (Scale Score 1-3)) citalopram 20 mg tablet 20 mg PO DAILY albuterol sulfate 2.5 mg /3 mL (0.083 %) solution for nebulization 2.5 mg inhalation 3XW albuterol sulfate [Ventolin HFA] 90 mcg/actuation HFA aerosol inhaler 2 inh INHALATION DAILY Discontinued furosemide 20 mg tablet 40 mg PO DAILY Follow up/Referrals: Alin,Doctor, [Primary Care Provider] - Diet/Activity/Treatments Diet: Diet as Tolerated Activity: As tolerated Visit Report/Discharge Packet Stand Alone Forms: Congestive Heart Failure, Patient Portal/API, Stroke Signs & Symptoms Discharge Data Primary Care Provider: Doctor Alin Attending Provider: Chago Nguyen Admit Date/Time: 08/16/22 22:22 Discharges patient from system. Discharge Date/Time: 08/18/22 10:50 Quality VTE Deep Vein Thrombosis/Pulmonary Embolism Present on Admission: No
--- NOTE | 2022-08-18 10:58 | CM.DPC ---
DCP Discharge Home Per MD, pt is medically stable to d/c home today after CDiff study to determine if pt needs oral medications for CDiff at d/c due to ongoing diarrhea. SW went to go meet bedside with pt again to determine if Medicaid Transport needed today and pt already left for home and per RN pt was given d/c instructions and had family member available to provide transport. BERT Mancilla
== END 2022-08-18 10:50 | disposition home or self-care (01) ==
LOC: ED 18:21 → AC 22:23 → ICU 22:47
PROVIDERS: Emergency Medicine; Internal Medicine; Admitting Provider Internal Medicine; Emergency Provider Emergency Medicine; Family Provider Family Medicine; Visit Provider Internal Medicine
DX: R06.03 Acute respiratory distress (principal); I50.23 Acute on chronic systolic (congestive) heart failure; M79.661 Pain in right lower leg; M79.662 Pain in left lower leg; R60.0 Localized edema; I69.354 Hemiplegia and hemiparesis following cerebral infarction affecting left non-dominant side; I11.0 Hypertensive heart disease with heart failure; J44.9 Chronic obstructive pulmonary disease, unspecified
CPT/HCPCS: 36415; 71045; 80048; 80053; 81001; 83690; 83735; 83880; 84484; 84550; 85025; 85610; 85730; 87633; 87797; 93005; 93010; 93306; 94640; 96365; 96372; 96375; 96376; 99284; G0378; J1170; J1650; J1940

== ENCOUNTER 2023-06-05 14:30 | Inpatient (IN) | payer MEDICARE, MEDICAID, OTHER, SELFPAY ==
[2022-01-09 02:00] VITALS: PULSE 71; RESP 12; O2SAT 98
[2022-08-16 22:42] VITALS: BMI 29.6
[2023-06-05] VITALS (13 sets, daily range): BP systolic 131–187; BP diastolic 61–98; PULSE 54–68; RESP 18–24; TEMP 36.1–36.9; O2SAT 93–100; BMI 32.8; BMI 34.2
--- NOTE | 2023-06-05 15:21 | DI.RAD.S_ITS ---
PROCEDURE: XR RIBS LT MIN 3V W CXR1V INDICATIONS: L sided rib pain after fall TECHNIQUE: 3 views of the ribs were acquired, along with a single view chest. COMPARISON: [facility], CR, XR RIBS RIGHT WITH PA CHEST, 04/16/2023, 9:30. [facility], CT, CT CHEST WITHOUT CONTRAST, 04/10/2023, 15:03. [facility], CR, XR CHEST 2 VIEWS, 04/10/2023, 13:41. [facility], CR, XR CHEST 1 VIEW, 04/27/2023, 14:42. FINDINGS: Surgical changes and devices: None. Bones and chest wall: No fractures or dislocations. No suspicious bony lesions. Age-appropriate bony degenerative changes are seen. Overlying soft tissues appear unremarkable. Lungs and pleura: An incomplete inspiratory result is noted, causing a crowded appearance to the lung markings. No focal infiltrates are seen. No pneumothorax or significant pleural effusions are seen. Mediastinum: Mediastinal contours appear normal. Heart size is normal. IMPRESSION: No definite displaced rib fractures are seen. No pneumothorax is seen. If there is strong clinical concern for chest trauma in this patient, please consider a follow-up chest CT with IV contrast for further evaluation. Dictated by: Hugo Lagos M.D. on 06/05/2023 at 15:04 Approved by: Hugo Lagos M.D. on 06/05/2023 at 15:06
--- NOTE | 2023-06-05 16:02 | ED.FALL ---
HPI - Fall General Chief Complaint: Fall Stated Complaint: fall/ L/ Rib and side pain/ painful breathing Time Seen by Provider: 06/05/23 14:53 Source: patient Mode of arrival: Ambulatory History of Present Illness HPI Narrative: Patient is a 68-year-old male who yesterday sustained a fall when he tripped while going down his driveway. He states he fell and landed on his left arm. Since that time he has had left-sided chest wall/rib discomfort. Has had pain with inspiration. Pain with coughing. Pain with touching the left-sided chest wall. He did not hit his head. No loss of consciousness. No extremity injuries. He does have left upper quadrant abdominal pain but this is more over his ribs. Related Data Home Medications Medication Instructions Recorded Confirmed acetaminophen 500 mg tablet 1,000 mg PO Q6H PRN Pain (Scale 11/21/18 08/16/22 Score 1-3) albuterol sulfate 2.5 mg/3 mL 2.5 mg inhalation 3XW 08/16/22 08/16/22 (0.083 %) solution for nebulization albuterol sulfate 90 mcg/actuation 2 inh inhalation DAILY 08/16/22 08/16/22 aerosol inhaler (Ventolin HFA) citalopram 20 mg tablet 20 mg PO DAILY 08/16/22 08/16/22 Previous Rx's Medication Instructions Recorded carvedilol 25 mg tablet 25 mg PO BID #60 tabs 01/11/22 losartan 100 mg tablet 100 mg PO DAILY #30 tabs 01/11/22 amlodipine 5 mg tablet 5 mg PO BID #30 tabs 07/22/22 Allergies Allergy/AdvReac Type Severity Reaction Status Date / Time NSAIDS (Non-Steroidal Allergy Severe Swelling Verified 07/22/22 13:49 Anti-Inflamma of Lip/Tongue/Throat Penicillins [PENICILLINS] Allergy Severe Swelling Verified 08/17/22 11:56 of Lip/Tongue/Throat chocolate flavor Allergy Intermediate Swelling Verified 07/22/22 13:49 of Lip/Tongue/Throat peanut Allergy Intermediate Swelling Verified 07/22/22 13:49 of Lip/Tongue/Throat strawberry Allergy Intermediate Swelling Verified 07/22/22 13:49 of Lip/Tongue/Throat celecoxib [From CELEBREX] Allergy Unknown Verified 07/22/22 13:49 lisinopril [LISINOPRIL] Allergy Unknown Verified 07/22/22 13:49 meloxicam [MELOXICAM] Allergy Unknown ANAPHYLAXSI Verified 07/22/22 13:49 S avocado AdvReac Intermediate Swelling Verified 07/22/22 13:49 of Lip/Tongue/Throat peas AdvReac Intermediate Swelling Verified 07/22/22 13:49 of Lip/Tongue/Throat sulfite AdvReac Intermediate Migraine Verified 07/22/22 13:49 Review of Systems Constitutional Constitutional: Reports system reviewed and no additional complaints, except as documented Cardiovascular Cardiovascular: Reports system reviewed and no additional complaints, except as documented Respiratory Respiratory: Reports system reviewed and no additional complaints, except as documented Gastrointestinal Gastrointestinal: Reports system reviewed and no additional complaints, except as documented Genitourinary Genitourinary: Reports system reviewed and no additional complaints, except as documented Integumentary/Breasts Skin/Breast: Reports system reviewed and no additional complaints, except as documented Neurologic Neurologic: Reports system reviewed and no additional complaints, except as documented Hematologic/Lymphatic On Anticoagulants: No Patient History Medical History Chronic neck and back pain Systolic congestive 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, NYHA class 1 Left hemiparesis Stroke Right rib fracture Coronary artery disease Hypertension Surgical History History of cholecystectomy History of laparotomy History of shoulder surgery History of surgery on wrist Hx of fusion of cervical spine Family History Father Parkinsons Mother Cancer Brother Cancer Sister No significant medical problems Social History household members: other Smoking Status: Former smoker alcohol intake: former substance use type: does not use Smoking Status: Former smoker tobacco type: cigarettes alcohol intake frequency: holidays/special occasions only Substance Use Type: marijuana Exam Initial Vital Signs Initial Vital Signs: Vital Signs Temperature 98.4 F 06/05/23 14:32 Pulse Rate 61 06/05/23 14:32 Respiratory Rate 22 06/05/23 14:32 Blood Pressure 159/73 H 06/05/23 14:32 Pulse Oximetry 96 06/05/23 14:32 Oxygen Delivery Method Room Air 06/05/23 14:32 Const General: cooperative and No ill appearing [facility] Head: normal to inspection Chest Other: Tenderness to palpation left lower chest wall. Resp Effort & Inspection: not labored Auscultation: clear to auscultation bilaterally Other: Patient is splinting. You do hear a clunk/click when he has inspiration. This is new since his fall yesterday Cardio Rate: regular rate Neuro General: patient alert and patient awake Course Orders Ordered: ED Orders 06/05/23 15:21 XR ribs LT min 3V w CXR1V Stat 06/05/23 16:04 CT chest wo con Stat 06/05/23 16:05 Complete Blood Count AUTO DIFF Stat Comprehensive Metabolic Panel Stat Lipase Stat 06/05/23 17:40 Education, smoking cessation ONGOING 06/05/23 17:44 Education, smoking cessation ONGOING Acetaminophen (Acetaminophen 325 Mg Tablet) 650 mg PO Q6H PRN PRN Reason: Fever/Mild Pain (1-3) Albuterol (Albuterol 2.5 Mg/3 Ml Neb (Adult)) 2.5 mg INH [id number] [facility] Albuterol (Albuterol Hfa Mdi 60 Puff/8 Gm Inhaler) 2 puff INH DAILY [facility] Amlodipine Besylate (Amlodipine 5 Mg Tablet) 5 mg PO BID [facility] Carvedilol (Carvedilol 12.5 Mg Tablet) 25 mg PO BID [facility] Enoxaparin Sodium (Enoxaparin 40 Mg/0.4 Ml Syringe) 40 mg SUBCUT DAILY [facility] Gabapentin (Gabapentin 300 Mg Capsule) 300 mg PO BID [facility] Hydromorphone HCl (Hydromorphone 0.5 Mg Inj) 1 mg IV Q2H PRN PRN Reason: Pain, Severe (7-10) Last Admin: 06/05/23 18:34 Dose: 1 mg Documented By: SB Hydromorphone HCl (Hydromorphone 0.5 Mg Inj) 0.5 mg IV Q2H PRN PRN Reason: Pain, Severe (7-10) Losartan Potassium (Losartan 50 Mg Tablet) 100 mg PO DAILY [facility] Naloxone HCl (Naloxone 0.4 Mg/Ml Vial) 0.2 mg IV Q2MIN PRN PRN Reason: Opiate Reversal Ondansetron HCl (Ondansetron 4 Mg/2 Ml Inj) 4 mg IV Q4HR PRN PRN Reason: Nausea And Vomiting Oxycodone HCl (Oxycodone Ir 5 Mg Tablet) 5 mg PO Q3H PRN PRN Reason: Pain, Moderate (4-6) Discontinued Medications Hydromorphone HCl (Hydromorphone 1 Mg Inj) 1 mg IM NOW ONE Stop: 06/05/23 15:39 Last Admin: 06/05/23 16:14 Dose: 1 mg Documented By: JAC Hydromorphone HCl (Hydromorphone 1 Mg Inj) 1 mg IV NOW ONE Stop: 06/05/23 17:16 Last Admin: 06/05/23 17:39 Dose: 1 mg Documented By: ALTHEA Non-Formulary Medication (Citalopram) 20 mg PO DAILY CHRISTIANE Vital Signs Vital signs: Vital Signs - 8 hr 06/05/23 14:32 06/05/23 14:46 06/05/23 14:47 Temperature 98.4 F Pulse Rate 61 62 61 Respiratory Rate 22 Blood Pressure 159/73 H Pulse Oximetry 96 94 93 Oxygen Delivery Method Room Air 06/05/23 14:47 06/05/23 15:00 06/05/23 15:00 Temperature Pulse Rate 60 Respiratory Rate Blood Pressure 149/70 H 146/65 H Pulse Oximetry 93 Oxygen Delivery Method 06/05/23 15:30 06/05/23 15:30 06/05/23 16:03 Temperature Pulse Rate 60 56 L Respiratory Rate Blood Pressure 131/73 Pulse Oximetry 94 100 Oxygen Delivery Method 06/05/23 16:30 06/05/23 17:00 06/05/23 17:14 Temperature Pulse Rate 58 L 54 L 58 L Respiratory Rate Blood Pressure Pulse Oximetry 95 95 95 Oxygen Delivery Method 06/05/23 17:14 Temperature Pulse Rate Respiratory Rate Blood Pressure 145/73 H Pulse Oximetry Oxygen Delivery Method MDM - Fall Lab Data Attestation: I reviewed the patient's lab results. 06/05/23 16:05 06/05/23 16:05 Labs: Lab Results 06/05/23 Range/Units 16:05 WBC 6.3 (4.5-11.0) X10^3/uL RBC 4.32 L (4.5-5.9) X10^6/uL Hgb 12.4 L (13.5-17.5) g/dL Hct 36.4 L (41-53) % MCV 84.3 (80-100) fL MCH 28.7 (26-34) PG MCHC 34.0 (30-36) % RDW 14.1 (11.6-14.8) % Plt Count 316 (150-400) X10^3/uL Neut % (Auto) 77.4 H (50-75) % Lymph % (Auto) 9.8 L (25-40) % [place] % (Auto) 8.5 (3-14) % Eos % (Auto) 2.9 (2-4) % Baso % (Auto) 1.4 (0-2) % Neut # (Auto) 4900 (4912-8414) /uL Lymph # (Auto) 600 L (6164-6924) /uL [place] # (Auto) 500 (0-900) /uL Eos # (Auto) 200 (0-450) /uL Baso # (Auto) 100 (0-100) /uL Sodium 136 L (137-145) mmol/L Potassium 3.9 (3.4-5.1) mmol/L Chloride 99 (98-107) mmol/L Carbon Dioxide 29 (22-32) mmol/L BUN 18 (9-20) mg/dL Creatinine 1.03 (0.66-1.25) mg/dL Estimated GFR > 60 (>60) mL/min BUN/Creatinine Ratio 17.5 (6-22) Glucose 134 H (80-110) mg/dL Calcium 9.2 (8.4-10.2) mg/dL Total Bilirubin 0.9 (0.2-1.3) mg/dL AST 33 (17-59) IU/L ALT 17 (<50) IU/L Alkaline Phosphatase 95 (38-126) U/L Total Protein 7.9 (6.3-8.2) g/dL Albumin 4.4 (3.5-5.0) g/dL Globulin 3.5 (1.7-4.1) g/dL Albumin/Globulin Ratio 1.3 (1.0-2.8) Lipase 113 (23-300) U/L Imaging Data CT scan - chest: Radiologist's Impression: PROCEDURE: CT CHEST WO CON INDICATIONS: Possible multiple left-sided rib fractures TECHNIQUE: Noncontrast 5 mm thick sections acquired from the pulmonary apices to the posterior costophrenic angles. 1 mm lung window, 5 mm thick coronal and sagittal and 7 mm axial MIP reformats were then acquired. For radiation dose reduction, the following was used: automated exposure control, adjustment of mA and/or kV according to patient size. COMPARISON: [facility], CT, CT CHEST WITHOUT CONTRAST, 04/10/2023, 15:03. [facility], CR, XR RIBS RIGHT WITH PA CHEST, 04/16/2023, 9:30. [facility], CR, XR RIBS LT MIN 3V W CXR1V, 06/05/2023, 15:28. FINDINGS: Image quality: Diagnostic. Lower Neck: No enlarged lymph nodes. Thyroid: No thyroid nodules which require sonographic follow up, per consensus guidelines. Axillae: No enlarged lymph nodes. Chest Wall: Unremarkable. Bones: In this patient with this given history, scrutiny is given to the left-sided ribs. No acute displaced left-sided rib fracture can be seen. A few remote, healing left-sided rib fractures are seen. Several remote, healing right-sided rib fractures can be seen, with bridging callus and periosteal reaction. Mild levoconvex scoliotic curvature is noted. Age-appropriate bony degenerative changes are seen. Lungs and Pleura: No pneumothorax or pleural effusions. No consolidation or suspicious nodules. Heart: Heart size is normal. No pericardial effusion. Thoracic Vessels: The aorta and pulmonary arteries demonstrate normal size. Mediastinum and Jessica: No enlarged lymph nodes. Esophagus: No wall thickening. No hiatal hernia. Upper Abdomen: Cholecystectomy clips are seen. Incidental note is made of an accessory splenule along the hilum of the primary spleen. Anterior abdominal wall mesh placement can be seen. The visualized portions of the upper abdominal structures are otherwise unremarkable for imaging technique. IMPRESSION: Negative for acute rib fracture on the left. No pneumothorax. Multiple remote bilateral rib fractures are seen, with healing change. Additional findings: Cholecystectomy Accessory splenule Anterior abdominal wall mesh placement Rib X-ray: Radiologist's Impression: PROCEDURE: XR RIBS LT MIN 3V W CXR1V INDICATIONS: L sided rib pain after fall TECHNIQUE: 3 views of the ribs were acquired, along with a single view chest. COMPARISON: [facility], CR, XR RIBS RIGHT WITH PA CHEST, 04/16/2023, 9:30. [facility], CT, CT CHEST WITHOUT CONTRAST, 04/10/2023, 15:03. [facility], CR, XR CHEST 2 VIEWS, 04/10/2023, 13:41. [facility], CR, XR CHEST 1 VIEW, 04/27/2023, 14:42. FINDINGS: Surgical changes and devices: None. Bones and chest wall: No fractures or dislocations. No suspicious bony lesions. Age-appropriate bony degenerative changes are seen. Overlying soft tissues appear unremarkable. Lungs and pleura: An incomplete inspiratory result is noted, causing a crowded appearance to the lung markings. No focal infiltrates are seen. No pneumothorax or significant pleural effusions are seen. Mediastinum: Mediastinal contours appear normal. Heart size is normal. IMPRESSION: No definite displaced rib fractures are seen. No pneumothorax is seen. If there is strong clinical concern for chest trauma in this patient, please consider a follow-up chest CT with IV contrast for further evaluation. MDM Narrative Medical decision making narrative: His CT scan an x-ray show no acute rib fractures however clinically he has multiple rib fractures. You do hear a click/clunk when he inspires. This causes him to have quite a bit of discomfort. He has localized tenderness to palpation along the lateral and anterior left-sided chest wall. On the x-rays it does not appear to be any underlying lung pathology. No pneumothorax. After several doses of pain medication patient is still splinting and having quite a bit of discomfort. He was not febrile. Not hypoxic. Patient has a history of asthma. Given his clinical rib fractures and his splinting in his underlying lung pathology there is a high concern about pain control at home. I did discuss the case with Dr. Crooks on-call for General surgery who will admit for pain control and pulmonary toilet. Discussed the need for admission with the patient. He expressed understanding and agreement. Discharge Plan Departure Patient Disposition: Admitted as Observation Clinical Impression: Multiple fractures of ribs Admit Date/Time: 06/05/23 17:42 Admit Provider: Akil Crooks
[2023-06-05 16:14] LABS: Add Manual Diff / Slide Review NO; Basophils Absolute Auto 100 /uL (0-100); Basophils Percent Auto 1.4 % (0-2); Eosinophils Absolute Auto 200 /uL (0-450); Eosinophils Percent Auto 2.9 % (2-4); Hematocrit 36.4 % (41-53); Hemoglobin 12.4 g/dL (13.5-17.5); Lymphocytes Absolute Auto 600 /uL (1100-4500); Lymphocytes Percent Auto 9.8 % (25-40); Mean Corpuscular Hemoglobin 28.7 PG (26-34); Mean Corpuscular Volume 84.3 fL (80-100); Monocytes Absolute Auto 500 /uL (0-900); Monocytes Percent Auto 8.5 % (3-14); Neutrophils Absolute Auto 4900 /uL (1500-7000); Neutrophils Percent Auto 77.4 % (50-75); Platelet Count 316 X10^3/uL (150-400); Red Blood Cell Count 4.32 X10^6/uL (4.5-5.9); Red Cell Distribution Width 14.1 % (11.6-14.8); White Blood Cell Count 6.3 X10^3/uL (4.5-11.0)
[2023-06-05] MEDS: HYDROMORPHONE 1 MG INJ IM (16:14)
--- NOTE | 2023-06-05 16:21 | PC.NURSE ---
lung sounds present a pop in and out during expiatory phase. During deep inhalation the chest wall pops out. Provider notified and assessed the patient. orders in.
[2023-06-05 16:26] LABS: Alanine Aminotransferase 17 IU/L (<50); Albumin 4.4 g/dL (3.5-5.0); Albumin Globulin Ratio 1.3 (1.0-2.8); Alkaline Phosphatase 95 U/L (38-126); Aspartate Aminotransferase 33 IU/L (17-59); BUN Creatinine Ratio 17.5 (6-22); Bilirubin Total 0.9 mg/dL (0.2-1.3); Blood Urea Nitrogen 18 mg/dL (9-20); Calcium 9.2 mg/dL (8.4-10.2); Carbon Dioxide 29 mmol/L (22-32); Chloride 99 mmol/L (98-107); Estimated Glomerular Filt Rate > 60 mL/min (>60); Globulin 3.5 g/dL (1.7-4.1); Glucose 134 mg/dL (80-110); HEMOLYSIS < 15 (0-50); Lipase 113 U/L (23-300); Potassium 3.9 mmol/L (3.4-5.1); Sodium 136 mmol/L (137-145); Total Protein 7.9 g/dL (6.3-8.2)
[2023-06-05] MEDS: HYDROMORPHONE 1 MG INJ IV (17:39)
[2023-06-05] MEDS: HYDROMORPHONE 0.5 MG INJ 1 MG IV ×2 (18:34→22:33)
--- NOTE | 2023-06-05 18:45 | PC.NURSE ---
Day shift: Patient came to ACU this evening rating his pain 8/10. He states pain all on his left side. Gave IV dilaudid. Visible popping of chest wall/rib on left side. Lung sounds heard, clear. O2 sating 97 percent on room air. Oriented to room, call light within reach. Bed alarm on. Will continue to monitor.
[2023-06-05] MEDS: carvediloL 12.5 MG TABLET 25 MG PO (20:18)
[2023-06-05] MEDS: OXYCODONE IR 5 MG TABLET PO (20:18)
[2023-06-05] MEDS: AMLODIPINE 5 MG TABLET PO (20:18)
[2023-06-05] MEDS: GABAPENTIN 300 MG CAPSULE PO (20:18)
[2023-06-06] VITALS (11 sets, daily range): BP systolic 128–168; BP diastolic 57–84; PULSE 53–69; RESP 16–26; TEMP 36.2–36.5; O2SAT 93–100
[2023-06-06] MEDS: HYDROMORPHONE 0.5 MG INJ 1 MG IV ×4 (02:47→11:20)
--- NOTE | 2023-06-06 06:48 | PC.NURSE ---
Pt was place on 2 L NC tonight for comfort, pt sating in the mid 90's (continues pulx oximetry) and denies sob. When assessing lung sounds this nurse could hear coarse wheezing lung sounds and a popping noise that was also felt with each inspiration (pt state this was due to cartilage in that area). Pt has been needing 1 mg of ivp dilaudid frequently to help him with his breathing. Pt able to urinate using the urinal on the side of the bed this am with 2 assist.
[2023-06-06] MEDS: LOSARTAN 50 MG TABLET 100 MG PO (08:22)
[2023-06-06] MEDS: ENOXAPARIN 40 MG/0.4 ML SYRINGE SUBCUT (08:22)
[2023-06-06] MEDS: AMLODIPINE 5 MG TABLET PO ×2 (08:22→19:34)
[2023-06-06] MEDS: OXYCODONE IR 5 MG TABLET PO ×4 (08:23→19:30)
[2023-06-06] MEDS: GABAPENTIN 300 MG CAPSULE PO ×2 (08:23→19:34)
[2023-06-06] MEDS: ACETAMINOPHEN 325 MG TABLET 650 MG PO ×2 (08:23→15:37)
[2023-06-06] MEDS: carvediloL 12.5 MG TABLET 25 MG PO ×2 (08:23→19:34)
--- NOTE | 2023-06-06 08:43 | DI.RAD.S_ITS ---
PROCEDURE: XR CHEST 2V INDICATIONS: Evaluate for pneumothorax TECHNIQUE: 2 views of the chest were acquired. COMPARISON: [facility], , XR CHEST 1V, 08/16/2022, 21:03., CT chest 06/05/2023 FINDINGS: Surgical changes and devices: None. Lungs and pleura: Lungs are clear. No pleural effusions or pneumothorax. Mediastinum: Mediastinal contours are normal. Heart size is normal. Bones and chest wall: No suspicious bony abnormalities. Soft tissues appear unremarkable. IMPRESSION: No acute cardiopulmonary abnormality is seen. Approved by: Katie Mccain M.D. on 06/06/2023 at 9:26
[2023-06-06] MEDS: ALBUTEROL 2.5 MG/3 ML NEB (ADULT) INH (09:30)
--- NOTE | 2023-06-06 09:30 | P.HP_ITS ---
History of Present Illness History of Present Illness Date Patient Seen: 06/06/23 Time Patient Seen: 09:30 Chief complaint: fall/ L/ Rib and side pain/ painful breathing Narrative: Octaviano atkins is a 60-year-old man who presented to the ER after tripping and falling yesterday and sustaining left-sided chest wall pain and dyspnea. An x- ray and a CT chest were performed which demonstrated no teo hemothorax or pneumothorax. There are left-sided rib fractures but the age of the rib fractures is felt to be subacute according to the radiologist interpreting the CT scan. Yesterday he had clicking when he would take a deep breath and this was also noted on physical exam yesterday. Today the clicking. But he has rather severe pain of the left chest when he takes a deep breath. REPLACED BY [facility] Medical History Chronic neck and back pain Systolic congestive 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, NYHA class 1 Left hemiparesis Stroke Right rib fracture Coronary artery disease Hypertension Surgical History History of cholecystectomy History of laparotomy History of shoulder surgery History of surgery on wrist Hx of fusion of cervical spine Family History Father Parkinsons Mother Cancer Brother Cancer Sister No significant medical problems Social History household members: spouse Smoking Status: Former smoker alcohol intake: former substance use type: does not use Meds Home Medications and Allergies Home Medications Medication Instructions Recorded Confirmed Type acetaminophen 500 mg tablet 1,000 mg PO Q6H PRN Pain (Scale 11/21/18 06/06/23 History Score 1-3) carvedilol 25 mg tablet 25 mg PO BID #60 tabs 01/11/22 06/06/23 Rx losartan 100 mg tablet 100 mg PO DAILY #30 tabs 01/11/22 06/06/23 Rx amlodipine 5 mg tablet 5 mg PO BID #30 tabs 07/22/22 06/06/23 Rx albuterol sulfate 2.5 mg/3 mL 2.5 mg inhalation 3XW 08/16/22 06/06/23 History (0.083 %) solution for nebulization albuterol sulfate 90 mcg/actuation 2 inh inhalation DAILY 08/16/22 06/06/23 History aerosol inhaler (Ventolin HFA) citalopram 20 mg tablet 20 mg PO DAILY 08/16/22 06/06/23 History Allergies Allergy/AdvReac Type Severity Reaction Status Date / Time NSAIDS (Non-Steroidal Allergy Severe Swelling Verified 07/22/22 13:49 Anti-Inflamma of Lip/Tongue/Throat Penicillins [PENICILLINS] Allergy Severe Swelling Verified 08/17/22 11:56 of Lip/Tongue/Throat chocolate flavor Allergy Intermediate Swelling Verified 07/22/22 13:49 of Lip/Tongue/Throat peanut Allergy Intermediate Swelling Verified 07/22/22 13:49 of Lip/Tongue/Throat strawberry Allergy Intermediate Swelling Verified 07/22/22 13:49 of Lip/Tongue/Throat celecoxib [From CELEBREX] Allergy Unknown Verified 07/22/22 13:49 lisinopril [LISINOPRIL] Allergy Unknown Verified 07/22/22 13:49 meloxicam [MELOXICAM] Allergy Unknown ANAPHYLAXSI Verified 07/22/22 13:49 S avocado AdvReac Intermediate Swelling Verified 07/22/22 13:49 of Lip/Tongue/Throat peas AdvReac Intermediate Swelling Verified 07/22/22 13:49 of Lip/Tongue/Throat sulfite AdvReac Intermediate Migraine Verified 07/22/22 13:49 Exam Vital Signs (past 8 hours): - 06/06/23 02:00 06/06/23 06:00 06/06/23 08:22 Temperature 97.2 F L 97.1 F L Pulse Rate 53 L 57 L 57 L Respiratory Rate 20 26 H Blood Pressure 145/68 H 152/57 H 152/57 H Pulse Oximetry 98 100 Oxygen Flow Rate 06/06/23 08:23 06/06/23 08:42 Temperature 97.2 F L Pulse Rate 57 L 60 Respiratory Rate 20 Blood Pressure 152/57 H 168/74 H Pulse Oximetry 99 Oxygen Flow Rate 2 Oxygen Delivery Method Nasal Cannula Oxygen Flow Rate 2 Objective Labs 06/05/23 16:05 06/05/23 16:05 Labs: Laboratory Results - last 24 hr 06/05/23 16:05 WBC 6.3 RBC 4.32 L Hgb 12.4 L Hct 36.4 L MCV 84.3 MCH 28.7 MCHC 34.0 RDW 14.1 Plt Count 316 Neut % (Auto) 77.4 H Lymph % (Auto) 9.8 L [place] % (Auto) 8.5 Eos % (Auto) 2.9 Baso % (Auto) 1.4 Neut # (Auto) 4900 Lymph # (Auto) 600 L [place] # (Auto) 500 Eos # (Auto) 200 Baso # (Auto) 100 Sodium 136 L Potassium 3.9 Chloride 99 Carbon Dioxide 29 BUN 18 Creatinine 1.03 Estimated GFR > 60 BUN/Creatinine Ratio 17.5 Glucose 134 H Calcium 9.2 Total Bilirubin 0.9 AST 33 ALT 17 Alkaline Phosphatase 95 Total Protein 7.9 Albumin 4.4 Globulin 3.5 Albumin/Globulin Ratio 1.3 Lipase 113 Assessment & Plan Assessment and plan (1) Multiple fractures of ribs: Qualifiers: Encounter type: initial encounter Fracture type: closed Laterality: l eft Qualified Code(s): S22.42XA - Multiple fractures of ribs, left side, initial encounter for closed fracture Status: Acute Plan 68-year-old man with multiple left-sided rib fractures. Although on CT scan they were not felt to be acute he certainly has acute left lower chest wall pain which is in fact causing him to splint his breaths. I encouraged him to use incentive spirometry. We will provide him with as much pain control as possible so we can continue to take deep breaths to avoid complications of rib fractures such as pneumonia and atelectasis. I will ask our anesthesia colleagues if there is anything they could provide in terms of regional pain relief.
--- NOTE | 2023-06-06 11:10 | CM.DANOTE ---
DCP Assessment Note Pt is a 68yo M here following GLF resulting in rib fractures. Pt being following by general surg, per their note, current plan is not to operate but figure out a plan to manage pain/avoid complications of a rib fracture. Plan is to get pain pawel shot tomorrow, 2. PCP Pt is enrolled at the [facility]. Pt sees a different provider at each appt but is currently having his primary care needs managed, per pt report. Payer: [place] Medicare, Medicaid, and [facility] CHILD CAREGIVER reviewed EMR. no PT/OT orders at this time, waiting to see what the pain management pain would be to see if therapies are needed? CHILD CAREGIVER entered room and introduced self and role. Pt resting in bed, reports being in pain. Pt reports not having ambulated too much since arriving, but is normally fairly indep at baseline. Pt lives at home with spouse Arianne ([phone]). Pt uses a cane at baseline, no O2 at baseline. Currently on room air but was on a few ltrs O2 at beginning of pt's time here. Pt's sister is his POA (Azucena Chu p [phone]). Pt does not drive, normally uses [employer] program in [facility] for transportation. Pt reports having transportation benefits through Medicaid. Pt reports he may have a family or friend that could transport but would likely need assistance with transportation. pt denies other CM needs at this time. CHILD CAREGIVER confirmed pt has transportation benefit with the [facility]. CHILD CAREGIVER spoke with unit receptionist at [facility], they confirmed he is currently enrolled as a patient there and could follow if he has HH needs at ca. Plan: pending medical POC. Likely home with family when stable. Transportation either with family/friend or with Medicaid transportation. r/o need for PT/OT eval or HH closer to [place]. CM team will follow closely for additional CM needs. BERT Rose Discharge Planning/Care Management CM Discharge Assessment Start: 06/06/23 11:07 Freq: Status: Active Protocol: Document 06/06/23 11:07 (Rec: 06/06/23 11:09 [email or web address]) Discharge Planning Assessment Assigned Ditching Machine Operator BERT Andersen DPOA/Assigned Designee Name sister Zeng Contact Information [phone] Advance Directives? No: DPOA for HC and POA Advance Directives on File Yes History Provided By Patient,Medical Record Prior Living Arrangements Apartment/Condo Household Members spouse Type of transporation used prior to Relies on Others admit Comment either Medicaid transport or Senior Program/[employer] in [facility] transports Independent with ADL's Yes Is patient alert and oriented? Yes Needs Assistance With Home Chores / Shopping Community Services used prior to Transportation admission: Comment [employer] DME Already Rented / Owned Cane,Nebulizer Discharge Plan Home Community Services Transportation Transportation Arrangement may need assist with setting up transport home Additional Comment Waiting for further recommendations Whiteboard Updated in Patient Room with Yes name and ext. # of Ditching Machine Operator Review Status In Process Next Review Type Continued Stay Review
[2023-06-06] MEDS: HYDROMORPHONE 0.5 MG INJ IV ×2 (16:38→21:00)
[2023-06-07] VITALS (9 sets, daily range): BP systolic 156–178; BP diastolic 76–81; PULSE 57–71; RESP 16–22; TEMP 35.9–36.4; O2SAT 96–99
[2023-06-07] MEDS: HYDROMORPHONE 0.5 MG INJ 1 MG IV ×4 (00:05→08:53)
[2023-06-07] MEDS: SODIUM CHLORIDE 0.9% FLUSH 10 ML IV ×3 (00:06→20:51)
[2023-06-07] MEDS: OXYCODONE IR 5 MG TABLET PO (01:30)
--- NOTE | 2023-06-07 06:23 | PC.NURSE ---
prt continues to have pain to left side of chest wall/ribs and requiring dilaudid ivp frequently. pt lungs sounds are wheezing and sob with any activity. patient was on RA all night sating in the mid 90's. Pt NPO for a possible procedure this am to help alleviate his pain by anesthesia.
[2023-06-07] MEDS: ALBUTEROL 2.5 MG/3 ML NEB (ADULT) INH (08:27)
[2023-06-07] MEDS: ENOXAPARIN 40 MG/0.4 ML SYRINGE SUBCUT (08:54)
[2023-06-07] MEDS: LOSARTAN 50 MG TABLET 100 MG PO (08:54)
[2023-06-07] MEDS: AMLODIPINE 5 MG TABLET PO ×2 (08:54→20:50)
[2023-06-07] MEDS: carvediloL 12.5 MG TABLET 25 MG PO ×2 (08:54→20:50)
[2023-06-07] MEDS: GABAPENTIN 300 MG CAPSULE PO ×2 (08:54→20:50)
[2023-06-07] MEDS: LIDOCAINE 5% PATCH 1 EACH TOP ×2 (10:28→18:31)
[2023-06-07] MEDS: OXYCODONE IR 10 MG TABLET PO ×2 (10:28→18:31)
--- NOTE | 2023-06-07 12:45 | PM.PN.1 ---
Subjective Subjective Date Patient Seen: 06/07/23 Time Patient Seen: 12:45 Interval history: Pain about the same as yesterday. He is using the incentive spirometer. Exam Vital Signs (past 8 hours): - 06/07/23 06:20 06/07/23 08:00 06/07/23 08:16 Temperature 97.3 F L Pulse Rate 71 65 64 Respiratory Rate 20 16 Blood Pressure 178/79 H Pulse Oximetry 96 98 98 Oxygen Delivery Method Nasal Cannula Oxygen Flow Rate 0 0 2 06/07/23 12:00 Temperature 97.5 F L Pulse Rate 63 Respiratory Rate 20 Blood Pressure 168/77 H Pulse Oximetry 99 Oxygen Delivery Method Oxygen Flow Rate 0 Fraction of Inspired Oxygen 21 SaO2/FiO2 Ratio 442 Oxygen Delivery Method Nasal Cannula Oxygen Flow Rate 0 Const General: No acute distress Resp Effort & Inspection: able to speak in complete sentences Objective Labs 06/05/23 16:05 06/05/23 16:05 [facility] Medical History Chronic neck and back pain Systolic congestive 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, NYHA class 1 Left hemiparesis Stroke Right rib fracture Coronary artery disease Hypertension Surgical History History of cholecystectomy History of laparotomy History of shoulder surgery History of surgery on wrist Hx of fusion of cervical spine Family History Father Parkinsons Mother Cancer Brother Cancer Sister No significant medical problems Social History household members: spouse Smoking Status: Former smoker alcohol intake: former substance use type: does not use Assessment & Plan Assessment and plan (1) Multiple fractures of ribs: Qualifiers: Encounter type: initial encounter Fracture type: closed Laterality: left Qualified Code(s): S22.42XA - Multiple fractures of ribs, left side, initial encounter for closed fracture Status: Acute Plan Continue supportive care Stop lovenox and if pain persists tomorrow consider a block
--- NOTE | 2023-06-07 13:57 | CM.DPNOTE ---
DCP Note FIELD INVESTIGATOR reviewed EMR. Per nursing staff, pain radiating on left side of chest. Likely from ribs? Per surgeon note, Stop lovenox and if pain persists tomorrow consider a block, no clear dc timeline. FIELD INVESTIGATOR entered room and reintroduced self and role. pt resting uncomfortably in bed. Pt reports he was unsure of a dc timeline. Pt reports no Hx of HH, doesn't think he will need it, but agrees to think about it. Reports still unsure if he has a ride or not home and would appreciate Medicaid transport if no family or friend available at day of dc. Pt continues to deny other CM needs. No PT/OT orders, consider it if pt continues to have pain with mobilizing after getting pain under controlled medically. Plan: likely home once pain under control/medically stable. follow closely for transport plan- may need Medicaid transport. r/o need for PT/OT eval or HH closer to dc? Follow closely. BERT Rose
[2023-06-07] MEDS: HYDROMORPHONE 1 MG INJ IV ×4 (14:10→23:40)
[2023-06-07] MEDS: ACETAMINOPHEN 325 MG TABLET 650 MG PO (17:30)
[2023-06-08] VITALS (7 sets, daily range): BP systolic 149–182; BP diastolic 67–91; PULSE 58–77; RESP 18–22; TEMP 36.1–36.5; O2SAT 95–99
[2023-06-08] MEDS: HYDROMORPHONE 1 MG INJ IV ×6 (03:24→15:44)
[2023-06-08] MEDS: ACETAMINOPHEN 325 MG TABLET 650 MG PO ×3 (04:58→20:27)
[2023-06-08] MEDS: carvediloL 12.5 MG TABLET 25 MG PO ×2 (08:29→20:28)
[2023-06-08] MEDS: LOSARTAN 50 MG TABLET 100 MG PO (08:30)
[2023-06-08] MEDS: OXYCODONE IR 10 MG TABLET PO ×4 (08:30→20:28)
[2023-06-08] MEDS: GABAPENTIN 300 MG CAPSULE PO ×2 (08:30→20:28)
[2023-06-08] MEDS: AMLODIPINE 5 MG TABLET PO ×2 (08:30→20:29)
[2023-06-08] MEDS: LIDOCAINE 5% PATCH 1 EACH TOP (08:31)
[2023-06-08] MEDS: SODIUM CHLORIDE 0.9% FLUSH 10 ML IV ×2 (09:19→20:55)
[2023-06-08] MEDS: ALBUTEROL 2.5 MG/3 ML NEB (ADULT) INH ×2 (10:19→14:10)
--- NOTE | 2023-06-08 12:46 | SUR.HOLD ---
Pt brought from room 216 in by this RN. Able to stand and walk to stretcher. Block time out at 1154. Block start time 1155 . Monitoring initiated and maintained throughout procedure. Patient remained stable throughout procedure, no adverse reactions noted. Block end time 1218. See Progress note for vital signs and telemetry strip. Pt stated pain 10/10 prior to procedure and 6/10 after procedure and that it is a bit easier to breath.
--- NOTE | 2023-06-08 13:44 | CM.DPC ---
DCP Cont. Reviewed EMR and team rounds for pt's medical status updates. Pt had a pain block today in the OR, he states that it is already helping, and that his pain is only intermittent as opposed to constant. MINING TECHNICIAN asked him if he has thought about whether or not he will want Home Health at d/c, as discussed yesterday with previous MINING TECHNICIAN, he again shares that his preference is to d/c home, and that his is a SOFTWARE SYSTEMS ARCHITECT and can assist him with his home recovery needs. He will need Medicaid Transportation to transport him home. This MINING TECHNICIAN will f/u tomorrow with completing the transportation request if d/c is imminent. Will cont. to follow.
--- NOTE | 2023-06-08 13:49 | DIET.CONS ---
Dietary Consultation Note Admission Date: 06/05/2023 17:42 Assessment: 68y/o M admitted after a fall resulting in left-side chest pain and dyspnea. RD consulted for pt stated 10# weight loss over 3 months. No indicators for malnutrition over the last year based on BMI of 34.2 and weight gain since 07/2022 of 9-14kg per EMR wt hx. MNA indicates no reduction in food intake. Recent PO while admitted 75-100%. Had admission in 07/2022 and was diagnosed with chronic PCM, however since that time weight has increased. Today Octaviano tells me he has been intentionally trying to lose weight via walking and diet. Ht: 170.18 cm Wt: 99 kg BMI: 34.2 Last BM: 06/08/23 (06/08/23 07:30) MNA: 9 Tristan Score: 15 Diet: 06/08/23 10:43 NPO Diet Diet Modifications: NPO Type: Strict Nutrition Percent Meal Consumed 100% 06/08/23 08:00 Percent Meal Consumed 80 06/07/23 18:00 Percent Meal Consumed 75% 06/07/23 17:38 Percent Meal Consumed 90 06/06/23 17:57 Labs: RBC 4.32 X10^6/uL (4.5-5.9) L 06/05/23 16:05 Hgb 12.4 g/dL (13.5-17.5) L 06/05/23 16:05 Hct 36.4 % (41-53) L 06/05/23 16:05 Creatinine 1.03 mg/dL (0.66-1.25) 06/05/23 16:05 Nutrition Diagnosis: None at this time Interventions: None Monitoring/Evaluations: Please re-consult prn. Electronically Signed by: Danisha Rodney 06/08/23 13:49 Clinical Dietitian [id number] [place] [address]
--- NOTE | 2023-06-08 14:48 | PM.PN.1 ---
Subjective Subjective Date Patient Seen: 06/08/23 Interval history: Pain has continued to be an issue overnight. Exam Vital Signs (past 8 hours): - 06/08/23 07:30 06/08/23 08:00 Temperature 97.2 F L Pulse Rate 60 Respiratory Rate 22 Blood Pressure 181/75 H Pulse Oximetry 99 Oxygen Delivery Method Room Air Oxygen Flow Rate 0 Fraction of Inspired Oxygen 21 SaO2/FiO2 Ratio 442 Oxygen Delivery Method Room Air Oxygen Flow Rate 0 Narrative Exam Narrative: There is paradoxical motion of the left anterior lateral chest wall Objective Labs 06/05/23 16:05 06/05/23 16:05 [facility] Medical History Chronic neck and back pain Systolic congestive 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, NYHA class 1 Left hemiparesis Stroke Right rib fracture Coronary artery disease Hypertension Surgical History History of cholecystectomy History of laparotomy History of shoulder surgery History of surgery on wrist Hx of fusion of cervical spine Family History Father Parkinsons Mother Cancer Brother Cancer Sister No significant medical problems Social History household members: spouse Smoking Status: Former smoker alcohol intake: former substance use type: does not use Assessment & Plan Assessment and plan (1) Multiple fractures of ribs: Qualifiers: Encounter type: initial encounter Fracture type: closed Laterality: left Qualified Code(s): S22.42XA - Multiple fractures of ribs, left side, initial encounter for closed fracture Status: Acute Plan Rib block by anesthesia today for better pain control
[2023-06-08] MEDS: diphenhydrAMINE 25 MG TABLET PO (20:29)
[2023-06-09] VITALS (11 sets, daily range): BP systolic 128–174; BP diastolic 48–88; PULSE 61–88; RESP 16–19; TEMP 36.1–36.6; O2SAT 94–99
[2023-06-09] MEDS: HYDROMORPHONE 1 MG INJ IV ×4 (02:08→11:37)
[2023-06-09] MEDS: AMLODIPINE 5 MG TABLET PO ×2 (08:01→20:25)
[2023-06-09] MEDS: LOSARTAN 50 MG TABLET 100 MG PO (08:01)
[2023-06-09] MEDS: GABAPENTIN 300 MG CAPSULE PO ×2 (08:01→20:24)
[2023-06-09] MEDS: carvediloL 12.5 MG TABLET 25 MG PO ×2 (08:01→20:24)
[2023-06-09] MEDS: LIDOCAINE 5% PATCH 1 EACH TOP (08:02)
[2023-06-09] MEDS: SODIUM CHLORIDE 0.9% FLUSH 10 ML IV ×2 (08:02→20:25)
[2023-06-09] MEDS: OXYCODONE IR 10 MG TABLET PO ×4 (09:17→22:16)
[2023-06-09] MEDS: ACETAMINOPHEN 325 MG TABLET 650 MG PO ×3 (09:17→22:16)
[2023-06-09] MEDS: ALBUTEROL 2.5 MG/3 ML NEB (ADULT) INH (10:39)
--- NOTE | 2023-06-09 12:52 | PM.PN.1 ---
Subjective Subjective Date Patient Seen: 06/09/23 Time Patient Seen: 12:52 Interval history: I have in his definitely feeling better today. He took a shower. Still has quite a bit of pain when he takes deep breath or moves around. He thinks may be ready to go home by tomorrow Exam Vital Signs (past 8 hours): - 06/09/23 08:00 06/09/23 08:01 06/09/23 08:01 Temperature 97.0 F L Pulse Rate 62 68 68 Respiratory Rate 16 Blood Pressure 174/83 H 174/83 H 174/83 H Pulse Oximetry 98 Oxygen Delivery Method 06/09/23 10:39 06/09/23 10:40 Temperature 97.9 F Pulse Rate 64 62 Respiratory Rate 16 16 Blood Pressure 136/63 Pulse Oximetry 98 99 Oxygen Delivery Method Room Air Fraction of Inspired Oxygen 21 SaO2/FiO2 Ratio 442 Oxygen Delivery Method Room Air Oxygen Flow Rate 0 Const Orientation: alert and awake Objective Labs 06/05/23 16:05 06/05/23 16:05 [facility] Medical History Chronic neck and back pain Systolic congestive 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, NYHA class 1 Left hemiparesis Stroke Right rib fracture Coronary artery disease Hypertension Surgical History History of cholecystectomy History of laparotomy History of shoulder surgery History of surgery on wrist Hx of fusion of cervical spine Family History Father Parkinsons Mother Cancer Brother Cancer Sister No significant medical problems Social History household members: spouse Smoking Status: Former smoker alcohol intake: former substance use type: does not use Assessment & Plan Assessment and plan (1) Multiple fractures of ribs: Qualifiers: Encounter type: initial encounter Fracture type: closed Laterality: left Qualified Code(s): S22.42XA - Multiple fractures of ribs, left side, initial encounter for closed fracture Status: Acute Plan Plan for discharge home tomorrow morning.
--- NOTE | 2023-06-09 13:41 | CM.DPC ---
DCP Cont. Reviewed EMR and team rounds for status updates. Met with pt to discuss d/c needs. Plan is for pt to d/c tomorrow am, not confirmed on the time yet. This MAIL TELLER will fax the Medicaid Transportation request in the morning early to arrange for a late morning p/u.
[2023-06-09] MEDS: diphenhydrAMINE 25 MG TABLET PO (22:16)
[2023-06-10 00:21] VITALS: BP 150/71; PULSE 60; RESP 18; TEMP 36.1; O2SAT 94
[2023-06-10] MEDS: OXYCODONE IR 10 MG TABLET PO ×3 (02:26→09:45)
[2023-06-10 04:49] VITALS: BP 174/75; PULSE 55; RESP 20; TEMP 35.9; O2SAT 95
[2023-06-10] MEDS: ACETAMINOPHEN 325 MG TABLET 650 MG PO (06:43)
[2023-06-10 08:00] VITALS: BP 157/64; PULSE 67
--- NOTE | 2023-06-10 08:42 | CM.DPC ---
DCP Cont. Reviewed EMR and met with floor RN for status updates. Plan is for pt to d/c later this morning to home. This PARKS WORKER faxed the request to Medicaid Transportation for a p/u of 10:30am-11:00am preference. Will plan to confirm w/RN once we get a confirmation on the time. Otherwise, no further DCP needs identified at this time.
[2023-06-10] MEDS: GABAPENTIN 300 MG CAPSULE PO (08:46)
[2023-06-10] MEDS: AMLODIPINE 5 MG TABLET PO (08:46)
[2023-06-10] MEDS: LIDOCAINE 5% PATCH 1 EACH TOP (08:47)
[2023-06-10] MEDS: polyethylene glycoL 3350 17 GM POWD.PACK PO (08:47)
[2023-06-10 08:48] VITALS: BP 154/70; PULSE 67
[2023-06-10] MEDS: SODIUM CHLORIDE 0.9% FLUSH 10 ML IV (08:48)
[2023-06-10] MEDS: carvediloL 12.5 MG TABLET 25 MG PO (08:48)
[2023-06-10] MEDS: LOSARTAN 50 MG TABLET 100 MG PO (08:48)
--- NOTE | 2023-06-10 09:02 | PM.DS.1 ---
History of Present Illness History of Present Illness Date Patient Seen: 06/10/23 Chief complaint: fall/ L/ Rib and side pain/ painful breathing Narrative: 68-year-old man who had a ground level fall and presented to the emergency department with severe chest pain and shortness of breath. Imaging demonstrates no pneumothorax or hemothorax. There are multiple rib fractures however they appear to be subacute. He is admitted to the hospital for pain control. Discharge Providers Provider Date of admission: 06/05/23 17:42 Discharge Date: 06/10/23 Primary care physician: Doctor Alin MD Consults: 06/05/23 21:19 Consult to Dietitian, Adult Routine Comment: Reason For Exam: pt states lost 10lbs in last 3 months Consult to CERTIFIED NURSING ASSISTANT INSTRUCTOR - Residential Director Routine Comment: Discharge provider: Akil Crooks MD Summary Hospital Course Discharge Diagnosis: Ground level fall Chest pain Rib fractures Hospital Course: The patient was admitted for pain management following a traumatic fall with subsequent chest pain and dyspnea. His pain initially required significant IV pain medication and over time this was weaned to oral medication. At discharge he is ambulatory, pains appropriately controlled with oral medication and his O2 saturation is 97% without supplemental oxygen. Exam Vital Signs (past 8 hours): - 06/10/23 04:49 06/10/23 08:48 06/10/23 08:48 Temperature 96.7 F L Pulse Rate 55 L 67 67 Respiratory Rate 20 Blood Pressure 174/75 H 154/70 H 154/70 H Pulse Oximetry 95 Oxygen Flow Rate 0 Fraction of Inspired Oxygen 21 SaO2/FiO2 Ratio 442 Oxygen Delivery Method Room Air Oxygen Flow Rate 0 Narrative Exam Narrative: General adult man alert oriented no acute distress Chest nonlabored respiration Abdomen soft nontender nondistended Objective Labs 06/05/23 16:05 06/05/23 16:05 [facility] Medical History Chronic neck and back pain Systolic congestive 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, NYHA class 1 Left hemiparesis Stroke Right rib fracture Coronary artery disease Hypertension Surgical History History of cholecystectomy History of laparotomy History of shoulder surgery History of surgery on wrist Hx of fusion of cervical spine Family History Father Parkinsons Mother Cancer Brother Cancer Sister No significant medical problems Social History household members: spouse Smoking Status: Former smoker alcohol intake: former substance use type: does not use Discharge Plan Discharge Plan Patient Disposition: Home Provider Discharge Comment: Continue to use incentive spirometer at home until rib pain is gone. Go for a few walks every day. Follow up with [facility] within the next 1-2 weeks Discharge orders & Medications Prescriptions: New oxycodone 10 mg tablet 10 mg PO Q6H PRN (Reason: pain) Qty: 30 0RF docusate sodium [Colace] 100 mg capsule 100 mg PO BID Qty: 30 0RF Continued carvedilol 25 mg tablet 25 mg PO BID Qty: 60 0RF Rx Instructions: must administer with a meal/food losartan 100 mg tablet 100 mg PO DAILY Qty: 30 0RF amlodipine 5 mg tablet 5 mg PO BID Qty: 30 0RF acetaminophen 500 mg Tablet 1,000 mg PO Q6H PRN (Reason: Pain (Scale Score 1-3)) citalopram 20 mg tablet 20 mg PO DAILY albuterol sulfate 2.5 mg /3 mL (0.083 %) solution for nebulization 2.5 mg inhalation 3XW albuterol sulfate [Ventolin HFA] 90 mcg/actuation HFA aerosol inhaler 2 inh INHALATION DAILY Follow up/Referrals: Doctor Ogden MD [Primary Care Provider] - Diet/Activity/Treatments Diet: Diet as Tolerated Skin/Wound/Dressing Care Report to your healthcare provider any signs of infection, such as:: chills, fever, night sweats and increased pain Visit Report/Discharge Packet Instructions: DI for Rib Fracture, How to Prevent Falls, DI for Prescription Opioid Use, Oxycodone Stand Alone Forms: Patient Portal/API, Stroke Signs & Symptoms Discharge Data Primary Care Provider: Doctor Alin
[2023-06-10] MEDS: ALBUTEROL 2.5 MG/3 ML NEB (ADULT) INH (09:19)
[2023-06-10 09:20] VITALS: PULSE 64; RESP 18; O2SAT 97
== END 2023-06-10 11:05 | disposition home or self-care (01) | DRG 185 ==
LOC: ED 17:39 → AC 06-06 08:05
PROVIDERS: Admitting Provider Surgery; Emergency Provider Emergency Medicine; Family Provider Family Medicine; Referring Provider Emergency Medicine; Visit Provider Surgery
PROC: 009U3ZZ Drainage of Spinal Canal, Percutaneous Approach (ICD-10-PCS; CPT 62270; principal; 2023-06-08 11:45)
DX: S22.42XA Multiple fractures of ribs, left side, initial encounter for closed fracture (principal); I10 Essential (primary) hypertension; W18.30XA Fall on same level, unspecified, initial encounter; Z87.891 Personal history of nicotine dependence
CPT/HCPCS: 36415; 64450; 71046; 71101; 71250; 80053; 83690; 85025; 93005; 93010; 94640; 94762; 96372; 96374; 99231; 99232; 99238; 99285; A9270; J1170; J1650; J7613

== ENCOUNTER 2023-07-11 20:28 | Inpatient (IN) | payer MEDICARE, MEDICAID, OTHER, SELFPAY ==
[2022-01-09 02:00] VITALS: PULSE 71; RESP 12; O2SAT 98
[2023-06-05 21:11] VITALS: BMI 34.2
[2023-07-11] VITALS (15 sets, daily range): BP systolic 178–230; BP diastolic 84–134; PULSE 74–100; RESP 13–57; TEMP 36.4; O2SAT 91–99; BMI 35.1
--- NOTE | 2023-07-11 20:34 | DI.RAD.S_ITS ---
PROCEDURE: XR CHEST 1V INDICATIONS: sob overdose TECHNIQUE: One view of the chest was acquired. COMPARISON: , CR, XR CHEST 2V, 06/06/2023, 8:50. , CR, XR CHEST 1V, 08/16/2022, 21:03. FINDINGS: Surgical changes and devices: None. Lungs and pleura: The head partially obscures the lung apices. Lungs are otherwise clear. No pleural effusions or pneumothorax. Mediastinum: Mediastinal contours appear normal. Heart size is normal. Bones and chest wall: No suspicious bony lesions. Overlying soft tissues appear unremarkable. IMPRESSION: No acute cardiopulmonary abnormality is seen. Approved by: Steve Szymanski M.D. on 07/11/2023 at 21:02
--- NOTE | 2023-07-11 20:38 | ED_ITS ---
HPI - Overdose General Chief Complaint: Shortness of Breath/Dyspnea Stated Complaint: OD Time Seen by Provider: 07/11/23 20:34 History of Present Illness HPI Narrative: Patient is a 68-year-old male CHFrEF of 30-35%, HTN, CAD, CVA, asthma, presenting today with fentanyl overdose. He apparently has chronic pain low so local methadone clinic per EMS patient was found unresponsive by family he was given 20 mg of nasal fentanyl by family. He woke up and was quite agitated EMS required 5 mg of Versed. He is having some labored breathing he was also given some albuterol he is requiring couple L of oxygen at this time. Currently not able to get any history. Patient was a difficult IV start he came in with a IO in his left tib-fib. Required ultrasound-guided IV by nursing staff Attempted to call girlfriend Arianne, 1 number is completely wrong number he other number does not go through. I also talked with LEXI Zeng who was unaware that he was in the emergency department had no idea what happened today. Confirms that he does go to a methadone clinic. Arianne states patient took off with money. About 30 minutes later he was wheezing started on nebulizer. Then he passed out not responding. Narcan given. He has history of fentanyl use found fentanyl on the table. Goes to [facility] for methadone 6 days a week does goes up. He has chronic pain in ribs from a fall awhile ago Related Data Home Medications Medication Instructions Recorded Confirmed acetaminophen 500 mg tablet 1,000 mg PO Q6H PRN Pain (Scale 11/21/18 07/12/23 Score 1-3) albuterol sulfate 2.5 mg/3 mL 2.5 mg inhalation 3XW 08/16/22 07/12/23 (0.083 %) solution for nebulization albuterol sulfate 90 mcg/actuation 2 inh inhalation DAILY 08/16/22 07/12/23 aerosol inhaler (Ventolin HFA) citalopram 20 mg tablet 20 mg PO DAILY 08/16/22 07/12/23 Previous Rx's Medication Instructions Recorded carvedilol 25 mg tablet 25 mg PO BID #60 tabs 01/11/22 losartan 100 mg tablet 100 mg PO DAILY #30 tabs 01/11/22 amlodipine 5 mg tablet 5 mg PO BID #30 tabs 07/22/22 docusate sodium 100 mg capsule 100 mg PO BID #30 caps 06/10/23 (Colace) Allergies Allergy/AdvReac Type Severity Reaction Status Date / Time NSAIDS (Non-Steroidal Allergy Severe Swelling Verified 07/22/22 13:49 Anti-Inflamma of Lip/Tongue/Throat Penicillins [PENICILLINS] Allergy Severe Swelling Verified 08/17/22 11:56 of Lip/Tongue/Throat chocolate flavor Allergy Intermediate Swelling Verified 07/22/22 13:49 of Lip/Tongue/Throat peanut Allergy Intermediate Swelling Verified 07/22/22 13:49 of Lip/Tongue/Throat strawberry Allergy Intermediate Swelling Verified 07/22/22 13:49 of Lip/Tongue/Throat celecoxib [From CELEBREX] Allergy Unknown Verified 07/22/22 13:49 lisinopril [LISINOPRIL] Allergy Unknown Verified 07/22/22 13:49 meloxicam [MELOXICAM] Allergy Unknown ANAPHYLAXSI Verified 07/22/22 13:49 S avocado AdvReac Intermediate Swelling Verified 07/22/22 13:49 of Lip/Tongue/Throat peas AdvReac Intermediate Swelling Verified 07/22/22 13:49 of Lip/Tongue/Throat sulfite AdvReac Intermediate Migraine Verified 07/22/22 13:49 Patient History Medical History Chronic neck and back pain Systolic congestive 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, NYHA class 1 Left hemiparesis Stroke Right rib fracture Coronary artery disease Hypertension Surgical History History of cholecystectomy History of laparotomy History of shoulder surgery History of surgery on wrist Hx of fusion of cervical spine Family History Father Parkinsons Mother Cancer Brother Cancer Sister No significant medical problems Social History household members: spouse Smoking Status: Former smoker alcohol intake: former substance use type: does not use Smoking Status: Former smoker tobacco type: cigarettes alcohol intake frequency: holidays/special occasions only Substance Use Type: does not use Exam Initial Vital Signs Initial Vital Signs: Vital Signs Pulse Rate 100 H 07/11/23 20:32 Respiratory Rate 13 07/11/23 20:32 Pulse Oximetry 91 07/11/23 20:32 Oxygen Delivery Method Nasal Cannula 07/11/23 20:32 Oxygen Flow Rate 2 07/11/23 20:32 GENERAL: Moaning 68-year-old male, unable to answer questions or follow commands at this time HEENT: Head atraumatic,EOMI, pupils reactive, mild facial droop CARDIOVASCULAR: Regular rate and rhythm without murmurs, rubs or gallops. RESPIRATORY: Labored breathing mild periods of apnea crackles lower right lung ABDOMEN: Soft, nontender. Normoactive bowel sounds all 4 quadrants. No guarding or rebound. EXTREMITIES: Normal range of motion, no clubbing or edema. Neurovascularly intact NEUROLOGICAL: Moving extremities but does appear to have some facial droop SKIN: Warm, dry, no laceration, no petechiae, no rashes or lesions. Course Orders Ordered: ED Orders 07/11/23 20:34 Chest [XR chest 1V] Stat 07/11/23 20:35 EKG-12 Lead Stat 07/11/23 20:39 CT head/brain wo con Stat 07/11/23 20:43 CT angio head and neck Stat 07/11/23 21:20 Acetaminophen Stat BNP [NT-proBNP (BNP-Adult 18+)] Stat Complete Blood Count AUTO DIFF Stat Comprehensive Metabolic Panel Stat Ethanol (ETOH) Stat Hepatic (Liver) Panel Stat Lactate (Lactic Acid) Stat Salicylate Stat Troponin & CK Cardiac Panel Stat Urine Drug Screen, Rapid Stat 07/11/23 23:13 Covid-19 + FLU A/B + RSV - PCR Stat 07/11/23 23:23 Trop I [Troponin I] Stat Acetaminophen (Acetaminophen 325 Mg Tablet) 650 mg PO Q6H PRN PRN Reason: Fever/Mild Pain (1-3) Albuterol/Ipratropium (Albuterol/Ipratropium 3 Ml Ampul) 3 ml INH [id number] [facility] Carvedilol (Carvedilol 12.5 Mg Tablet) 25 mg PO BID [facility] Last Admin: 07/12/23 02:43 Dose: 25 mg Documented By: [facility] Enoxaparin Sodium (Enoxaparin 40 Mg/0.4 Ml Syringe) 40 mg SUBCUT DAILY [facility] Furosemide (Furosemide 40 Mg/4 Ml Vial) 40 mg IV Q8H [facility] Last Admin: 07/12/23 02:43 Dose: 40 mg Documented By: DEANGELO Hydralazine HCl (Hydralazine 20 Mg/Ml Vial) 10 mg IV Q6HR PRN PRN Reason: Hypertension Lorazepam (Lorazepam 2 Mg/Ml Inj) 1 mg IV Q6HR PRN PRN Reason: Anxiety Losartan Potassium (Losartan 50 Mg Tablet) 50 mg PO BID [facility] Last Admin: 07/12/23 02:43 Dose: 50 mg Documented By: DEANGELO Metoprolol Tartrate (Metoprolol Tartrate 5 Mg/5 Ml Inj) 5 mg IV Q6H PRN PRN Reason: Hypertensive Emergency Last Admin: 07/12/23 02:05 Dose: 5 mg Documented By: DEANGELO Morphine Sulfate (Morphine 4 Mg/Ml Inj) 2 mg IV Q4HR PRN PRN Reason: Pain, Severe (7-10) Last Admin: 07/12/23 02:04 Dose: 2 mg Documented By: DEANGELO Naloxone HCl (Naloxone 0.4 Mg/Ml Vial) 0.4 mg IV PRN PRN PRN Reason: Opiate Reversal Last Admin: 07/11/23 21:13 Dose: 0.4 mg Documented By: TREVOR Naloxone HCl (Naloxone 0.4 Mg/Ml Vial) 0.2 mg IV Q2MIN PRN PRN Reason: Opiate Reversal Pantoprazole Sodium (Pantoprazole 40 Mg Vial) 40 mg IV DAILY [facility] Potassium Chloride (Potassium Chloride 10 Meq Tab) 10 meq PO BIDWM [facility] Sodium Chloride (Sodium Chloride 0.9% Flush) 10 ml IV PRN PRN PRN Reason: Flush Sodium Chloride (Sodium Chloride 0.9% Flush) 10 ml IV BID [facility] Discontinued Medications Furosemide (Furosemide 40 Mg/4 Ml Vial) 40 mg IV NOW ONE Stop: 07/11/23 20:44 Last Admin: 07/11/23 21:27 Dose: 40 mg Documented By: TREVOR Ceftriaxone Sodium 2,000 mg/ (Sodium Chloride) 100 mls @ 200 mls/hr IV NOW ONE Stop: 07/12/23 00:34 Last Infusion: 07/12/23 01:52 Dose: Infused Documented By: Admin: 07/12/23 00:43 Dose: 200 mls/hr Documented By: TREVOR Azithromycin 500 mg/ Dextrose 250 mls @ 250 mls/hr IV NOW ONE Stop: 07/12/23 00:34 Last Infusion: 07/12/23 02:27 Dose: Infused Documented By: Admin: 07/12/23 00:58 Dose: 250 mls/hr Documented By: TREVOR Vital Signs Vital signs: Vital Signs - 8 hr 07/11/23 20:32 07/11/23 20:33 07/11/23 21:00 Temperature 97.6 F Pulse Rate 100 H 95 H 96 H Respiratory Rate 13 40 H 39 H Blood Pressure 178/84 H Pulse Oximetry 91 92 95 Oxygen Delivery Method Nasal Cannula Nasal Cannula Nasal Cannula Oxygen Flow Rate 2 2 4 07/11/23 21:30 07/11/23 21:31 07/11/23 21:31 Temperature Pulse Rate 96 H 96 H Respiratory Rate 51 H 56 H Blood Pressure 230/125 H Pulse Oximetry 96 96 Oxygen Delivery Method Nasal Cannula Nasal Cannula Oxygen Flow Rate 4 4 07/11/23 21:45 07/11/23 21:45 07/11/23 22:00 Temperature Pulse Rate 93 H 96 H Respiratory Rate 57 H 55 H Blood Pressure 215/120 H Pulse Oximetry 94 97 Oxygen Delivery Method Nasal Cannula Oxygen Flow Rate 4 07/11/23 22:05 07/11/23 22:05 07/11/23 22:15 Temperature Pulse Rate 97 H 89 Respiratory Rate 50 H 55 H Blood Pressure 221/134 H Pulse Oximetry 95 97 Oxygen Delivery Method Nasal Cannula Nasal Cannula Oxygen Flow Rate 4 3 07/11/23 22:15 07/11/23 22:30 07/11/23 22:54 Temperature Pulse Rate 94 H Respiratory Rate 57 H Blood Pressure 214/129 H 221/122 H Pulse Oximetry 97 Oxygen Delivery Method Nasal Cannula Oxygen Flow Rate 3 07/11/23 22:54 07/11/23 23:00 07/11/23 23:00 Temperature Pulse Rate 91 H 91 H Respiratory Rate 51 H 51 H Blood Pressure 230/118 H Pulse Oximetry 98 99 Oxygen Delivery Method Nasal Cannula Nasal Cannula Oxygen Flow Rate 4 4 07/11/23 23:15 07/11/23 23:15 07/11/23 23:30 Temperature Pulse Rate 88 Respiratory Rate 54 H Blood Pressure 228/129 H 208/120 H Pulse Oximetry 99 Oxygen Delivery Method Nasal Cannula Oxygen Flow Rate 4 07/11/23 23:30 07/11/23 23:45 07/11/23 23:45 Temperature Pulse Rate 91 H 74 Respiratory Rate 52 H 27 H Blood Pressure 194/87 H Pulse Oximetry 97 98 Oxygen Delivery Method Nasal Cannula Nasal Cannula Oxygen Flow Rate 4 4 07/12/23 00:00 07/12/23 00:01 07/12/23 00:01 Temperature Pulse Rate 90 91 H Respiratory Rate 44 H 42 H Blood Pressure 233/121 H Pulse Oximetry 100 99 Oxygen Delivery Method Nasal Cannula Nasal Cannula Oxygen Flow Rate 4 4 07/12/23 00:15 07/12/23 00:15 07/12/23 00:30 Temperature Pulse Rate 88 90 Respiratory Rate 46 H 34 H Blood Pressure 205/118 H Pulse Oximetry 98 99 Oxygen Delivery Method Nasal Cannula Nasal Cannula Oxygen Flow Rate 4 4 MDM - Overdose Lab Data 07/12/23 01:48 07/12/23 01:48 Labs: Lab Results 07/11/23 07/11/23 07/11/23 Range/Units 21:20 23:13 23:23 WBC 14.0 H (4.5-11.0) X10^3/uL RBC 4.77 (4.5-5.9) X10^6/uL Hgb 13.4 L (13.5-17.5) g/dL Hct 40.3 L (41-53) % MCV 84.5 (80-100) fL MCH 28.0 (26-34) PG MCHC 33.2 (30-36) % RDW 13.7 (11.6-14.8) % Plt Count 321 (150-400) X10^3/uL Neut % (Auto) 86.1 H (50-75) % Lymph % (Auto) 4.3 L (25-40) % [place] % (Auto) 5.5 (3-14) % Eos % (Auto) 2.7 (2-4) % Baso % (Auto) 1.4 (0-2) % Neut # (Auto) 61774 H (6670-7528) /uL Lymph # (Auto) 600 L (2686-7477) /uL [place] # (Auto) 800 (0-900) /uL Eos # (Auto) 400 (0-450) /uL Baso # (Auto) 200 H (0-100) /uL Sodium 140 (137-145) mmol/L Potassium 4.0 (3.4-5.1) mmol/L Chloride 100 (98-107) mmol/L Carbon Dioxide 29 (22-32) mmol/L BUN 24 H (9-20) mg/dL Creatinine 1.20 (0.66-1.25) mg/dL Estimated GFR > 60 (>60) mL/min BUN/Creatinine Ratio 20.0 (6-22) Glucose 133 H (80-110) mg/dL Lactate 2.2 H 1.5 (0.7-2.1) mmol/L Calcium 9.7 (8.4-10.2) mg/dL Total Bilirubin 0.7 (0.2-1.3) mg/dL Conjugated Bilirubin 0.0 (0.0-0.3) md/dL Unconjugated Bilirubin 0.3 (0.0-1.1) mg/dL AST 45 (17-59) IU/L ALT 20 (<50) IU/L Alkaline Phosphatase 114 (38-126) U/L Total Creatine Kinase 197 H (55-170) U/L Troponin I 0.042 H 0.110 H (0.01-0.034) ng/mL NT-Pro-B Natriuret Pep 1950 H (<125) pg/mL Total Protein 8.6 H (6.3-8.2) g/dL Albumin 4.8 (3.5-5.0) g/dL Globulin 3.8 (1.7-4.1) g/dL Albumin/Globulin Ratio 1.3 (1.0-2.8) Salicylates < 1.0 (<20) mg/dL U Opiates 300ng/mL cut Negative (Negative) Ur Oxycodone Screen Negative (Negative) Urine Methadone Screen Positive H (Negative) Acetaminophen < 10 (10-30) ug/mL Ur Barbiturates Screen Negative (Negative) U Tricyclic Antidepress Negative (Negative) Ur Phencyclidine Scrn Negative (Negative) Ur Amphetamines Screen Negative (Negative) U Methamphetamines Scrn Negative (Negative) Ur MDMA Scrn (Ecstasy) Negative (Negative) U Benzodiazepines Scrn Negative (Negative) Urine Cocaine Screen Negative (Negative) U Marijuana (THC) Screen Positive H (Negative) Urine pH Normal (Normal) Urine Specific [place] Normal (Normal) Ethyl Alcohol < 10 ( - 10) mg/dL Ur Creatinine Normal (Normal) SARS-CoV-2 (PCR) Negative (Negative) Influenza A (RT-PCR) Flu a negative (NEGATIVE) Influenza B (RT-PCR) Flu b negative (NEGATIVE) RSV (PCR) Negative (Negative) Point of Care Testing Glucose POC 165 Imaging Data Chest x-ray: Radiologist's Impression: PROCEDURE: XR CHEST 1V INDICATIONS: sob overdose TECHNIQUE: One view of the chest was acquired. COMPARISON: [facility], CR, XR CHEST 2V, 06/06/2023, 8:50. [facility], CR, XR CHEST 1V, 08/16/2022, 21:03. FINDINGS: Surgical changes and devices: None. Lungs and pleura: The head partially obscures the lung apices. Lungs are otherwise clear. No pleural effusions or pneumothorax. Mediastinum: Mediastinal contours appear normal. Heart size is normal. Bones and chest wall: No suspicious bony lesions. Overlying soft tissues appear unremarkable. IMPRESSION: No acute cardiopulmonary abnormality is seen. Approved by: Steve Szymanski M.D. on 07/11/2023 at 21:02 CT scan - head: Radiologist's Impression: PROCEDURE: CT HEAD/BRAIN WO CON INDICATIONS: left sided def, overdose hx of cva TECHNIQUE: Noncontrast 4.5 mm thick angled axial sections acquired from the foramen magnum to the vertex, with coronal and sagittal reformats. For radiation dose reduction, the following was used: automated exposure control, adjustment of mA and/or kV according to patient size. COMPARISON: [facility], CT, CT HEAD WITHOUT CONTRAST, 10/23/2022, 15:01. [facility], CT, CT HEAD/BRAIN WO CON, 06/19/2021, 19:43. [facility], CT, CT HEAD/BRAIN WO CON, 07/12/2020, 19:12. FINDINGS: Image quality: Diagnostic. Mildly degraded by patient motion. CSF spaces: Basal cisterns are patent. No extra-axial fluid collections. The ventricles are symmetric in size and shape. Brain: No acute intracranial hemorrhage or mass effect. There is cerebral volume loss for age, with resultant ventricular and sulcal prominence. There are periventricular and deep white matter chronic small vessel ischemic changes. There is intracranial internal carotid artery atherosclerosis. Skull and face: Calvarium and visualized facial bones appear intact, without suspicious lesions. Sinuses: Visualized sinuses and mastoids are clear. IMPRESSION: No acute intracranial pathology. Approved by: Steve Szymanski M.D. on 07/11/2023 at 21:12 CTA - brain/neck: Radiologist's Impression: PROCEDURE: CT ANGIO HEAD AND NECK INDICATIONS: left side weakness TECHNIQUE: After the administration of intravenous contrast, 1 mm thick sections acquired from the aortic arch through the [place] of [place]. 3-dimensional eezrxgn-tlelhoulh-dvtppwqgah (MIP) and/or volume rendering reformats were acquired of the central intracranial vasculature and neck separately. For radiation dose reduction, the following was used: automated exposure control, adjustment of mA and/or kV according to patient size. COMPARISON: [facility], CT, CT HEAD/BRAIN WO CON, 07/11/2023, 20:57. [facility], CT, CT ANGIO HEAD AND NECK, 06/19/2021, 21:53. FINDINGS: Image quality: Diagnostic. Images are moderately degraded by patient motion. BRAIN: CSF spaces: Ventricles are normal in size and shape. Basal cisterns are patent. No extra-axial fluid collections. Brain: No significant abnormality of the brain can be seen. Skull and face: Calvarium and facial bones appear intact, without suspicious lesions. Orbits appear normal. Sinuses: Sinuses and mastoids are clear. HEAD CT ANGIOGRAPHY: Anterior circulation: Intracranial internal carotid arteries demonstrate mild atherosclerotic calcifications without significant stenosis.. The flow within the paired anterior cerebral arteries is normal and symmetric. The flow within the middle cerebral arteries is normal and symmetric. The anterior communicating artery is seen. No aneurysms are seen. Posterior circulation: Visualized portions of the vertebral arteries demonstrate normal caliber, and join to form a normal appearing basilar artery. Flow within the posterior cerebral arteries is normal and symmetric. No aneurysms are seen. NECK CT ANGIOGRAPHY: Carotid system: The great vessels demonstrate a conventional anatomy as they arise from the aortic arch. The origins of the common carotid arteries appear patent. The common carotid arteries demonstrate normal caliber and courses. The bifurcation regions are both widely patent. The internal carotid arteries demonstrate normal calibers and courses. Posterior circulation: The origins of the vertebral arteries both appear widely patent. The more superior extracranial portions of both vertebral arteries also demonstrate normal courses and calibers. They join to form a normal appearing basilar artery. Soft tissues: Visualized neck soft tissues demonstrate no suspicious abnormalities. Bones: No suspicious bony lesions. Visualized cervical spine demonstrates multilevel degenerative changes. IMPRESSION: 1. Moderately motion degraded exam. 2. No significant intracranial arterial abnormality is seen. 3. No significant abnormality is seen within the arteries of the neck. Any quantitative measurements of stenosis were performed using NASCET criteria. ECG Data Attestation: I personally reviewed and interpreted this ECG as follows: Interpretation: Sinus rhythm rate 99 HI interval 162 QRS [address] changes similar to prior MDM Narrative Medical decision making narrative: Patient is 60-year-old male with significant history of coronary artery disease congestive heart failure asthma and opiate abuse. Presents today with a fentanyl overdose but prior to his fentanyl use he was having some shortness of breath according to the girlfriend. It did take quite a long time to track down the right phone number but eventually got it. He did pass out no require Narcan at home. He then woke quite agitated and required Versed. When he arrived in the ED he was under the influence of Versed and not really coherent. Was having maybe some mild facial droop with history of CVA he was taken to CT no intracranial hemorrhage or large vessel occlusion Concerning for pulmonary edema after Narcan he was given Lasix he also has known history of congestive heart failure. Does not appear grossly fluid overloaded he does not have any significant pitting edema. He does have some crackles more in his right base than his left mild tachypnea. No decreased breath sounds or wheezing consistent with asthma. Patient had multiple episodes of loose watery stools likely secondary to Narcan. He was having so many stools at nursing requested a rectal tube be placed. Patient was given 40 mg Lasix and he is urinated over 1300 cc out by Cobb catheter. He initially was having some apneic pauses and required a 0.4 mg of Narcan but has not had any further apneic episodes becoming more alert. He is noted to be quite hypertensive blood pressure in the 200s and likely some mild CHF. BNP is 19 50 previously it has been greater than 2000. Troponins are also elevated and rising. The 1st 0.042 with a repeat of 0.11 not yet positive however I suspect that this is secondary to congestive heart failure Narcan and hypertension. EKG does not show any acute ST changes Imaging has been reviewed: Chest x-ray no vascular congestion, head CT negative CT angio negative Blood work reviewed leukocytosis of 14 mild left shift, no significant electrolyte abnormalities creatinine 1.2, initial lactate is 2.2 with repeat of 1.5, troponin 0.042, repeat 0.11 BNP 1950 Patient is requiring 3-4 L of nasal cannula. He has no longer having apnea more awake. He denies intentionally overdosing admits to taking fentanyl regularly. He was are ready having some shortness of breath prior to the use. Possible risk of aspiration with overdose. He does have some mild leukocytosis although I think more stress related and slightly elevated lactate 2.2 although improving without sepsis fluids. He does not meet any sort of septic criteria. Dr. Tapia updated on patient's symptoms test results and accepts patient to the ICU. Discussed about antibiotics and an aspiration thought it would be reasonable initially Zosyn however he is allergic to penicillin so he is given Rocephin and azithromycin. Naloxone at Discharge Meets criteria for naloxone at discharge?: Yes Critical Care Time Critical Care Time Critical Care Time: Yes Total Critical Care Time: 40 Attestation: The high probability of a clinically significant, sudden or life threatening deterioration of the [cardiovascular] system(s) required my full and direct attention, intervention and personal management. The aggregate critical care time was 40 minutes. This time is in addition to time spent performing reported procedures but includes the following: [x] Data Review and interpretation [x] Patient assessment and monitoring of vital signs [x] Documentation [x] Medication orders and management Discharge Plan Departure Patient Disposition: Admitted As Inpatient Clinical Impression: Accidental fentanyl overdose, Congestive heart failure, Hypertensive urgency Admit Date/Time: 07/12/23 00:34 Admit Provider: Jude Worrell
--- NOTE | 2023-07-11 20:43 | DI.CT.S_ITS ---
PROCEDURE: CT ANGIO HEAD AND NECK INDICATIONS: left side weakness TECHNIQUE: After the administration of intravenous contrast, 1 mm thick sections acquired from the aortic arch through the [place] of [place]. 3-dimensional awstpzw-omrhbpauc-cuitnjomyd (MIP) and/or volume rendering reformats were acquired of the central intracranial vasculature and neck separately. For radiation dose reduction, the following was used: automated exposure control, adjustment of mA and/or kV according to patient size. COMPARISON: [facility], CT, CT HEAD/BRAIN WO CON, 07/11/2023, 20:57. [facility], CT, CT ANGIO HEAD AND NECK, 06/19/2021, 21:53. FINDINGS: Image quality: Diagnostic. Images are moderately degraded by patient motion. BRAIN: CSF spaces: Ventricles are normal in size and shape. Basal cisterns are patent. No extra-axial fluid collections. Brain: No significant abnormality of the brain can be seen. Skull and face: Calvarium and facial bones appear intact, without suspicious lesions. Orbits appear normal. Sinuses: Sinuses and mastoids are clear. HEAD CT ANGIOGRAPHY: Anterior circulation: Intracranial internal carotid arteries demonstrate mild atherosclerotic calcifications without significant stenosis.. The flow within the paired anterior cerebral arteries is normal and symmetric. The flow within the middle cerebral arteries is normal and symmetric. The anterior communicating artery is seen. No aneurysms are seen. Posterior circulation: Visualized portions of the vertebral arteries demonstrate normal caliber, and join to form a normal appearing basilar artery. Flow within the posterior cerebral arteries is normal and symmetric. No aneurysms are seen. NECK CT ANGIOGRAPHY: Carotid system: The great vessels demonstrate a conventional anatomy as they arise from the aortic arch. The origins of the common carotid arteries appear patent. The common carotid arteries demonstrate normal caliber and courses. The bifurcation regions are both widely patent. The internal carotid arteries demonstrate normal calibers and courses. Posterior circulation: The origins of the vertebral arteries both appear widely patent. The more superior extracranial portions of both vertebral arteries also demonstrate normal courses and calibers. They join to form a normal appearing basilar artery. Soft tissues: Visualized neck soft tissues demonstrate no suspicious abnormalities. Bones: No suspicious bony lesions. Visualized cervical spine demonstrates multilevel degenerative changes. IMPRESSION: 1. Moderately motion degraded exam. 2. No significant intracranial arterial abnormality is seen. 3. No significant abnormality is seen within the arteries of the neck. Any quantitative measurements of stenosis were performed using NASCET criteria. Approved by: Steve Szymanski M.D. on 07/11/2023 at 21:25
--- NOTE | 2023-07-11 21:10 | PC.NURSE ---
Pt still having moments of apnea. MD Aware, awaiting orders.
[2023-07-11] MEDS: NALOXONE 0.4 MG/ML VIAL IV (21:13)
[2023-07-11] MEDS: FUROSEMIDE 40 MG/4 ML VIAL IV (21:27)
[2023-07-11 21:39] LABS: Add Manual Diff / Slide Review NO; Basophils Absolute Auto 200 /uL (0-100); Basophils Percent Auto 1.4 % (0-2); Eosinophils Absolute Auto 400 /uL (0-450); Eosinophils Percent Auto 2.7 % (2-4); Hematocrit 40.3 % (41-53); Hemoglobin 13.4 g/dL (13.5-17.5); Lymphocytes Absolute Auto 600 /uL (1100-4500); Lymphocytes Percent Auto 4.3 % (25-40); Mean Corpuscular HGB Conc 33.2 % (30-36); Mean Corpuscular Volume 84.5 fL (80-100); Monocytes Absolute Auto 800 /uL (0-900); Monocytes Percent Auto 5.5 % (3-14); Neutrophils Absolute Auto 12000 /uL (1500-7000); Neutrophils Percent Auto 86.1 % (50-75); Platelet Count 321 X10^3/uL (150-400); Red Blood Cell Count 4.77 X10^6/uL (4.5-5.9); Red Cell Distribution Width 13.7 % (11.6-14.8)
[2023-07-11 21:45] LABS: Ur Creatinine Normal (Normal); Ur Specific Gravity Normal (Normal); Urine Tetrahydrocannabinol Positive (Negative); Urine pH Normal (Normal)
--- NOTE | 2023-07-11 21:46 | PC.NURSE ---
Nkechi successful. MD Mcfadden aware. Pt having less apnic spells and is speaking to staff. Oriented x4 but is still slightly lethargic.
[2023-07-11 21:47] LABS: UR Morphine/Opiate cutoff 300 Negative (Negative); Urine Amphetamines Negative (Negative); Urine Barbiturates Negative (Negative); Urine Benzodiazepines Negative (Negative); Urine Cocaine Negative (Negative); Urine MDMA Negative (Negative); Urine Methadone Positive (Negative); Urine Methamphetamines Negative (Negative); Urine Oxycodone Negative (Negative); Urine Phencyclidine Negative (Negative); Urine Tricyclic Antidepressant Negative (Negative)
[2023-07-11 21:50] LABS: Acetaminophen < 10 ug/mL (10-30); Alanine Aminotransferase 20 IU/L (<50); Albumin 4.8 g/dL (3.5-5.0); Albumin Globulin Ratio 1.3 (1.0-2.8); Alkaline Phosphatase 114 U/L (38-126); Aspartate Aminotransferase 45 IU/L (17-59); Bilirubin Total 0.7 mg/dL (0.2-1.3); Bilirubin Unconjugated 0.3 mg/dL (0.0-1.1); Blood Urea Nitrogen 24 mg/dL (9-20); Calcium 9.7 mg/dL (8.4-10.2); Carbon Dioxide 29 mmol/L (22-32); Chloride 100 mmol/L (98-107); Creatine Kinase 197 U/L (55-170); Estimated Glomerular Filt Rate > 60 mL/min (>60); Ethanol (ETOH) < 10 mg/dL; Globulin 3.8 g/dL (1.7-4.1); Glucose 133 mg/dL (80-110); HEMOLYSIS 42 (0-50); Salicylate < 1.0 mg/dL (<20); Sodium 140 mmol/L (137-145); Total Protein 8.6 g/dL (6.3-8.2)
[2023-07-11 21:51] LABS: Lactate (Lactic Acid) 2.2 mmol/L (0.7-2.1)
[2023-07-11 22:01] LABS: NT-proBNP (BNP-Adult 18+) 1950 pg/mL (<125); Troponin I 0.042 ng/mL (0.01-0.034)
--- NOTE | 2023-07-11 22:10 | PC.NURSE ---
MD Mcfadden aware of pt blood pressure 221/134. Recieved verbal order to place rectal tube as pt has had 3 large liquid bowel movements. Pt verbalized understanding and agreed to placement.
--- NOTE | 2023-07-11 22:44 | PC.NURSE ---
MD Mcfadden on phone with family now. Pt resting in bed. Flexi-seal fecal pathology collector (non invasive) was placed on pt with skin barrier paste. Pt tolerated well. Drainage system is functioning at this time. Pt is slightly fidgety and unable to get comfortable. Pt is still oriented x 4 but does say some strange words at times. Still tachypnic and hyperteisve. MD aware. O2 sats maintaining. Attempted to lower O2 need to 3L but pt respiratory rate increased after this though O2 sat did maintain. O2 increased back to 4L NC.
[2023-07-11 23:11] LABS: Reflexed Lactate in 2 Hours Y
--- NOTE | 2023-07-11 23:15 | PC.NURSE ---
MD Mcfadden at bedside. Aware of hypertension and tachypnea.
[2023-07-11 23:42] LABS: Lactate 2HR (Lactic Acid Rflx) 1.5 mmol/L (0.7-2.1)
[2023-07-12] VITALS (43 sets, daily range): BP systolic 138–233; BP diastolic 72–124; PULSE 58–94; RESP 14–46; TEMP 36.6–37; O2SAT 92–100; BMI 32.4
[2023-07-12 00:31] LABS: Influenza A - CEPHEID Flu A NEGATIVE (NEGATIVE); Influenza B - CEPHEID Flu B NEGATIVE (NEGATIVE); Respiratory Syncytial Virus Negative (Negative)
[2023-07-12 00:43] LABS: COVID-19 CEPHEID 4-PLEX PCR Negative (Negative)
[2023-07-12] MEDS: cefTRIAXone 2,000 MG in SODIUM CHLORIDE 0.9% 100 ML 200 MG IV (00:43)
[2023-07-12] MEDS: AZITHROMYCIN 500 MG in DEXTROSE 5% IN WATER 250 ML 250 MG IV (00:58)
[2023-07-12 01:58] LABS: Add Manual Diff / Slide Review NO; Basophils Absolute Auto 100 /uL (0-100); Basophils Percent Auto 0.7 % (0-2); Eosinophils Absolute Auto 0 /uL (0-450); Eosinophils Percent Auto 0.1 % (2-4); Hematocrit 41.7 % (41-53); Hemoglobin 14.1 g/dL (13.5-17.5); Lymphocytes Absolute Auto 600 /uL (1100-4500); Mean Corpuscular HGB Conc 33.8 % (30-36); Mean Corpuscular Hemoglobin 28.5 PG (26-34); Mean Corpuscular Volume 84.2 fL (80-100); Monocytes Absolute Auto 300 /uL (0-900); Monocytes Percent Auto 2.8 % (3-14); Neutrophils Absolute Auto 9500 /uL (1500-7000); Neutrophils Percent Auto 90.4 % (50-75); Platelet Count 325 X10^3/uL (150-400); Red Blood Cell Count 4.95 X10^6/uL (4.5-5.9); Red Cell Distribution Width 13.7 % (11.6-14.8); White Blood Cell Count 10.5 X10^3/uL (4.5-11.0)
[2023-07-12] MEDS: MORPHINE 4 MG/ML INJ 2 MG IV ×3 (02:04→15:09)
[2023-07-12] MEDS: METOPROLOL TARTRATE 5 MG/5 ML INJ IV (02:05)
[2023-07-12 02:12] LABS: Lactate (Lactic Acid) 1.3 mmol/L (0.7-2.1)
[2023-07-12 02:13] LABS: Alanine Aminotransferase 21 IU/L (<50); Albumin 4.8 g/dL (3.5-5.0); Albumin Globulin Ratio 1.1 (1.0-2.8); Alkaline Phosphatase 133 U/L (38-126); Aspartate Aminotransferase 43 IU/L (17-59); BUN Creatinine Ratio 20.7 (6-22); Bilirubin Total 0.8 mg/dL (0.2-1.3); Blood Urea Nitrogen 24 mg/dL (9-20); Calcium 9.6 mg/dL (8.4-10.2); Carbon Dioxide 28 mmol/L (22-32); Chloride 103 mmol/L (98-107); Estimated Glomerular Filt Rate > 60 mL/min (>60); Globulin 4.2 g/dL (1.7-4.1); Glucose 174 mg/dL (80-110); HEMOLYSIS < 15 (0-50); Potassium 3.4 mmol/L (3.4-5.1); Sodium 140 mmol/L (137-145)
--- NOTE | 2023-07-12 02:19 | P.HP_ITS ---
History of Present Illness History of Present Illness Date Patient Seen: 07/12/23 Time Patient Seen: 02:19 Chief complaint: OD Narrative: The pt is a 68 yo with a hx of CAD, CVA, COPD, CHF and chronic back pain treated with methadone 70 mg daily who was found by his friends unconscious and EMS was called. 20 mg of intranasal Narcan given which caused him to be very anxious and combative and then 5mg of versed was given. In the ER, he was very hypertensive with sBP>200 but somnolent. A secondary dose of the Narcan was given in the ER, he started having profuse diarrhea and a flex seal rectal tube was placed due to the high volume of stool as well as a marina catheter was placed. During my interview, he was able to answer questions and reports that he smokes Fentanyl about weekly, maybe sometimes more frequent as well as the high dose methadone, He denies any vomiting, no CP, SOB< cough, fevers, or chills lately. [facility] Medical History Chronic neck and back pain Systolic congestive 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, NYHA class 1 Left hemiparesis Stroke Right rib fracture Coronary artery disease Hypertension Surgical History History of cholecystectomy History of laparotomy History of shoulder surgery History of surgery on wrist Hx of fusion of cervical spine Family History Father Parkinsons Mother Cancer Brother Cancer Sister No significant medical problems Social History household members: spouse Smoking Status: Former smoker alcohol intake: former substance use type: does not use Meds Home Medications and Allergies Home Medications Medication Instructions Recorded Confirmed Type acetaminophen 500 mg tablet 1,000 mg PO Q6H PRN Pain (Scale 11/21/18 06/06/23 History Score 1-3) carvedilol 25 mg tablet 25 mg PO BID #60 tabs 01/11/22 06/06/23 Rx losartan 100 mg tablet 100 mg PO DAILY #30 tabs 01/11/22 06/06/23 Rx amlodipine 5 mg tablet 5 mg PO BID #30 tabs 07/22/22 06/06/23 Rx albuterol sulfate 2.5 mg/3 mL 2.5 mg inhalation 3XW 08/16/22 06/06/23 History (0.083 %) solution for nebulization albuterol sulfate 90 mcg/actuation 2 inh inhalation DAILY 08/16/22 06/06/23 History aerosol inhaler (Ventolin HFA) citalopram 20 mg tablet 20 mg PO DAILY 08/16/22 06/06/23 History docusate sodium 100 mg capsule 100 mg PO BID #30 caps 06/10/23 Rx (Colace) oxycodone 10 mg tablet 10 mg PO Q6H PRN pain #30 tabs 06/10/23 Rx Allergies Allergy/AdvReac Type Severity Reaction Status Date / Time NSAIDS (Non-Steroidal Allergy Severe Swelling Verified 07/22/22 13:49 Anti-Inflamma of Lip/Tongue/Throat Penicillins [PENICILLINS] Allergy Severe Swelling Verified 08/17/22 11:56 of Lip/Tongue/Throat chocolate flavor Allergy Intermediate Swelling Verified 07/22/22 13:49 of Lip/Tongue/Throat peanut Allergy Intermediate Swelling Verified 07/22/22 13:49 of Lip/Tongue/Throat strawberry Allergy Intermediate Swelling Verified 07/22/22 13:49 of Lip/Tongue/Throat celecoxib [From CELEBREX] Allergy Unknown Verified 07/22/22 13:49 lisinopril [LISINOPRIL] Allergy Unknown Verified 07/22/22 13:49 meloxicam [MELOXICAM] Allergy Unknown ANAPHYLAXSI Verified 07/22/22 13:49 S avocado AdvReac Intermediate Swelling Verified 07/22/22 13:49 of Lip/Tongue/Throat peas AdvReac Intermediate Swelling Verified 07/22/22 13:49 of Lip/Tongue/Throat sulfite AdvReac Intermediate Migraine Verified 07/22/22 13:49 Exam Vital Signs (past 8 hours): - 07/11/23 20:32 07/11/23 20:33 07/11/23 21:00 Temperature 97.6 F Pulse Rate 100 H 95 H 96 H Respiratory Rate 13 40 H 39 H Blood Pressure 178/84 H Pulse Oximetry 91 92 95 Oxygen Delivery Method Nasal Cannula Nasal Cannula Nasal Cannula Oxygen Flow Rate 2 2 4 07/11/23 21:30 07/11/23 21:31 07/11/23 21:31 Temperature Pulse Rate 96 H 96 H Respiratory Rate 51 H 56 H Blood Pressure 230/125 H Pulse Oximetry 96 96 Oxygen Delivery Method Nasal Cannula Nasal Cannula Oxygen Flow Rate 4 4 07/11/23 21:45 07/11/23 21:45 07/11/23 22:00 Temperature Pulse Rate 93 H 96 H Respiratory Rate 57 H 55 H Blood Pressure 215/120 H Pulse Oximetry 94 97 Oxygen Delivery Method Nasal Cannula Oxygen Flow Rate 4 07/11/23 22:05 07/11/23 22:05 07/11/23 22:15 Temperature Pulse Rate 97 H 89 Respiratory Rate 50 H 55 H Blood Pressure 221/134 H Pulse Oximetry 95 97 Oxygen Delivery Method Nasal Cannula Nasal Cannula Oxygen Flow Rate 4 3 07/11/23 22:15 07/11/23 22:30 07/11/23 22:54 Temperature Pulse Rate 94 H Respiratory Rate 57 H Blood Pressure 214/129 H 221/122 H Pulse Oximetry 97 Oxygen Delivery Method Nasal Cannula Oxygen Flow Rate 3 07/11/23 22:54 07/11/23 23:00 07/11/23 23:00 Temperature Pulse Rate 91 H 91 H Respiratory Rate 51 H 51 H Blood Pressure 230/118 H Pulse Oximetry 98 99 Oxygen Delivery Method Nasal Cannula Nasal Cannula Oxygen Flow Rate 4 4 07/11/23 23:15 07/11/23 23:15 07/11/23 23:30 Temperature Pulse Rate 88 Respiratory Rate 54 H Blood Pressure 228/129 H 208/120 H Pulse Oximetry 99 Oxygen Delivery Method Nasal Cannula Oxygen Flow Rate 4 07/11/23 23:30 07/11/23 23:45 07/11/23 23:45 Temperature Pulse Rate 91 H 74 Respiratory Rate 52 H 27 H Blood Pressure 194/87 H Pulse Oximetry 97 98 Oxygen Delivery Method Nasal Cannula Nasal Cannula Oxygen Flow Rate 4 4 07/12/23 00:00 07/12/23 00:01 07/12/23 00:01 Temperature Pulse Rate 90 91 H Respiratory Rate 44 H 42 H Blood Pressure 233/121 H Pulse Oximetry 100 99 Oxygen Delivery Method Nasal Cannula Nasal Cannula Oxygen Flow Rate 4 4 07/12/23 00:15 07/12/23 00:15 07/12/23 00:30 Temperature Pulse Rate 88 90 Respiratory Rate 46 H 34 H Blood Pressure 205/118 H Pulse Oximetry 98 99 Oxygen Delivery Method Nasal Cannula Nasal Cannula Oxygen Flow Rate 4 4 07/12/23 00:45 07/12/23 00:45 07/12/23 01:00 Temperature Pulse Rate 86 Respiratory Rate 34 H Blood Pressure 219/124 H 204/110 H Pulse Oximetry 99 Oxygen Delivery Method Nasal Cannula Oxygen Flow Rate 4 07/12/23 01:00 07/12/23 01:26 07/12/23 01:32 Temperature Pulse Rate 94 H 83 85 Respiratory Rate 40 H 35 H Blood Pressure 177/105 H Pulse Oximetry 100 99 98 Oxygen Delivery Method Nasal Cannula Oxygen Flow Rate 07/12/23 01:42 Temperature 98.6 F Pulse Rate 85 Respiratory Rate 37 H Blood Pressure 190/99 H Pulse Oximetry 99 Oxygen Delivery Method Oxygen Flow Rate 4 Oxygen Delivery Method Nasal Cannula Oxygen Flow Rate 4 Const General: intoxicated appearing and lethargic HENMT Head: normal to inspection Face and sinus: normal facial exam Neck Neck: normal visual inspection and no meningeal signs Resp Auscultation: clear to auscultation bilaterally Cardio Rate: regular rate Rhythm: regular rhythm GI Inspection: large pannus Auscultation: normal bowel sounds Objective Labs 07/12/23 01:48 07/11/23 21:20 Labs: Laboratory Results - last 24 hr 07/11/23 07/11/23 07/11/23 21:20 23:13 23:23 WBC 14.0 H RBC 4.77 Hgb 13.4 L Hct 40.3 L MCV 84.5 MCH 28.0 MCHC 33.2 RDW 13.7 Plt Count 321 Neut % (Auto) 86.1 H Lymph % (Auto) 4.3 L [place] % (Auto) 5.5 Eos % (Auto) 2.7 Baso % (Auto) 1.4 Neut # (Auto) 50045 H Lymph # (Auto) 600 L [place] # (Auto) 800 Eos # (Auto) 400 Baso # (Auto) 200 H Sodium 140 Potassium 4.0 Chloride 100 Carbon Dioxide 29 BUN 24 H Creatinine 1.20 Estimated GFR > 60 BUN/Creatinine Ratio 20.0 Glucose 133 H Lactate 2.2 H 1.5 Calcium 9.7 Total Bilirubin 0.7 Conjugated Bilirubin 0.0 Unconjugated Bilirubin 0.3 AST 45 ALT 20 Alkaline Phosphatase 114 Total Creatine Kinase 197 H Troponin I 0.042 H 0.110 H NT-Pro-B Natriuret Pep 1950 H Total Protein 8.6 H Albumin 4.8 Globulin 3.8 Albumin/Globulin Ratio 1.3 Salicylates < 1.0 U Opiates 300ng/mL cut Negative Ur Oxycodone Screen Negative Urine Methadone Screen Positive H Acetaminophen < 10 Ur Barbiturates Screen Negative U Tricyclic Antidepress Negative Ur Phencyclidine Scrn Negative Ur Amphetamines Screen Negative U Methamphetamines Scrn Negative Ur MDMA Scrn (Ecstasy) Negative U Benzodiazepines Scrn Negative Urine Cocaine Screen Negative U Marijuana (THC) Screen Positive H Urine pH Normal Urine Specific [place] Normal Ethyl Alcohol < 10 Ur Creatinine Normal SARS-CoV-2 (PCR) Negative Influenza A (RT-PCR) Flu a negative Influenza B (RT-PCR) Flu b negative RSV (PCR) Negative 07/12/23 01:48 WBC 10.5 RBC 4.95 Hgb 14.1 Hct 41.7 MCV 84.2 MCH 28.5 MCHC 33.8 RDW 13.7 Plt Count 325 Neut % (Auto) 90.4 H Lymph % (Auto) 6.0 L [place] % (Auto) 2.8 L Eos % (Auto) 0.1 L Baso % (Auto) 0.7 Neut # (Auto) 9500 H Lymph # (Auto) 600 L [place] # (Auto) 300 Eos # (Auto) 0 Baso # (Auto) 100 Sodium Potassium Chloride Carbon Dioxide BUN Creatinine Estimated GFR BUN/Creatinine Ratio Glucose Lactate Calcium Total Bilirubin Conjugated Bilirubin Unconjugated Bilirubin AST ALT Alkaline Phosphatase Total Creatine Kinase Troponin I NT-Pro-B Natriuret Pep Total Protein Albumin Globulin Albumin/Globulin Ratio Salicylates U Opiates 300ng/mL cut Ur Oxycodone Screen Urine Methadone Screen Acetaminophen Ur Barbiturates Screen U Tricyclic Antidepress Ur Phencyclidine Scrn Ur Amphetamines Screen U Methamphetamines Scrn Ur MDMA Scrn (Ecstasy) U Benzodiazepines Scrn Urine Cocaine Screen U Marijuana (THC) Screen Urine pH Urine Specific [place] Ethyl Alcohol Ur Creatinine SARS-CoV-2 (PCR) Influenza A (RT-PCR) Influenza B (RT-PCR) RSV (PCR) Assessment & Plan Assessment & Plan narrative: 1. Fentanyl Overdose with narcotic dependency- Narcan given in the ER, I have discussed the pt's presentation and labs with the ER provider and agree with the decision for admission. I have ordered ICU/ intensive bed, frequent monitoring and vitals, Narcan prn, currently on 3 lpm NC with SaO2- 99%, 2. CHF exacerbation - elevated pro-BNP of 1969, lasix 40 mg IV Q8 hr ordered, has marina inplace, monitoring accurate I/O's, daily weights, he is on RA at home. restarting home meds of coreg, ASA, 3. HTN urgency- related to his narcotic withdrawl, lasix, coreg and losartan ordered BID, PRN metoporlol and hydralazine for BP control, 4. CAD with elevated troponin- recheck troponins serially, on telemetry, mildly elevated to 0.11, most likely related to the myocardial stress with the HTN , 5. hx of CVA- consider PT/OT, no new neurological findings noted on exam.
[2023-07-12 02:22] LABS: NT-proBNP (BNP-Adult 18+) 3450 pg/mL (<125)
[2023-07-12 02:28] LABS: Troponin I 0.167 ng/mL (0.01-0.034)
[2023-07-12] MEDS: LOSARTAN 50 MG TABLET PO ×3 (02:43→20:28)
[2023-07-12] MEDS: carvediloL 12.5 MG TABLET 25 MG PO ×3 (02:43→20:29)
[2023-07-12] MEDS: FUROSEMIDE 40 MG/4 ML VIAL IV ×3 (02:43→17:43)
[2023-07-12] MEDS: HYDRALAZINE 20 MG/ML VIAL 10 MG IV (03:10)
[2023-07-12 03:34] LABS: MRSA (Nasal) PCR Not Detected (Not Detect)
--- NOTE | 2023-07-12 06:22 | PC.ADMIT ---
[id number] [place] [address] B Admission Note: The patient,Octaviano Jj,68 y/o, was given written information regarding hospital policies, unit procedures and contact persons. Patient's smoking status: Former smoker. Vital Signs - 8 hr 07/11/23 22:30 07/11/23 22:54 07/11/23 22:54 Temperature Pulse Rate 94 H 91 H Respiratory Rate 57 H 51 H Blood Pressure 221/122 H Pulse Oximetry 97 98 Oxygen Delivery Method Nasal Cannula Nasal Cannula Oxygen Flow Rate 3 4 07/11/23 23:00 07/11/23 23:00 07/11/23 23:15 Temperature Pulse Rate 91 H Respiratory Rate 51 H Blood Pressure 230/118 H 228/129 H Pulse Oximetry 99 Oxygen Delivery Method Nasal Cannula Oxygen Flow Rate 4 07/11/23 23:15 07/11/23 23:30 07/11/23 23:30 Temperature Pulse Rate 88 91 H Respiratory Rate 54 H 52 H Blood Pressure 208/120 H Pulse Oximetry 99 97 Oxygen Delivery Method Nasal Cannula Nasal Cannula Oxygen Flow Rate 4 4 07/11/23 23:45 07/11/23 23:45 07/12/23 00:00 Temperature Pulse Rate 74 90 Respiratory Rate 27 H 44 H Blood Pressure 194/87 H Pulse Oximetry 98 100 Oxygen Delivery Method Nasal Cannula Nasal Cannula Oxygen Flow Rate 4 4 07/12/23 00:01 07/12/23 00:01 07/12/23 00:15 Temperature Pulse Rate 91 H Respiratory Rate 42 H Blood Pressure 233/121 H 205/118 H Pulse Oximetry 99 Oxygen Delivery Method Nasal Cannula Oxygen Flow Rate 4 07/12/23 00:15 07/12/23 00:30 07/12/23 00:45 Temperature Pulse Rate 88 90 86 Respiratory Rate 46 H 34 H 34 H Blood Pressure Pulse Oximetry 98 99 99 Oxygen Delivery Method Nasal Cannula Nasal Cannula Nasal Cannula Oxygen Flow Rate 4 4 4 07/12/23 00:45 07/12/23 01:00 07/12/23 01:00 Temperature Pulse Rate 94 H Respiratory Rate 40 H Blood Pressure 219/124 H 204/110 H Pulse Oximetry 100 Oxygen Delivery Method Oxygen Flow Rate 07/12/23 01:26 07/12/23 01:32 07/12/23 01:42 Temperature 98.6 F Pulse Rate 83 85 85 Respiratory Rate 35 H 37 H Blood Pressure 177/105 H 190/99 H Pulse Oximetry 99 98 99 Oxygen Delivery Method Nasal Cannula Oxygen Flow Rate 4 07/12/23 01:45 07/12/23 02:00 07/12/23 02:00 Temperature Pulse Rate 89 Respiratory Rate 35 H Blood Pressure 202/101 H Pulse Oximetry 100 Oxygen Delivery Method Nasal Cannula Oxygen Flow Rate 4 07/12/23 02:43 07/12/23 02:43 07/12/23 03:00 Temperature Pulse Rate 73 73 70 Respiratory Rate 34 H Blood Pressure 202/101 H 202/101 H Pulse Oximetry 97 Oxygen Delivery Method Oxygen Flow Rate 07/12/23 03:00 07/12/23 03:10 07/12/23 04:00 Temperature Pulse Rate 70 Respiratory Rate Blood Pressure 200/92 H 200/92 H 155/75 H Pulse Oximetry Oxygen Delivery Method Oxygen Flow Rate 4 07/12/23 04:00 07/12/23 04:29 07/12/23 05:00 Temperature 97.9 F Pulse Rate 80 74 68 Respiratory Rate 36 H 19 39 H Blood Pressure Pulse Oximetry 96 96 97 Oxygen Delivery Method Nasal Cannula Oxygen Flow Rate 4 2 07/12/23 05:00 07/12/23 05:30 07/12/23 06:00 Temperature Pulse Rate Respiratory Rate Blood Pressure 155/74 H 138/76 Pulse Oximetry Oxygen Delivery Method Nasal Cannula Oxygen Flow Rate 4 07/12/23 06:00 Temperature Pulse Rate 66 Respiratory Rate 30 H Blood Pressure Pulse Oximetry 98 Oxygen Delivery Method Oxygen Flow Rate 3 Patient brought to ICU room 231 at 0130. Drowsy, oriented to situation, month, and year, follows directions well, and knows what medications he takes. BP elevated, ordered prn IV metoprolol and IV Hydralizine, both given along with restarting routine carvedilol, losartan, and IV Lasix given. BP decreased to 138/76 by 0600-see vital trends. NC decreased from 4L to 2L, SpO2 >96% even when 3 sec apnea noted. IV morphine given for bladder spasms. Also having occasional leg cramps and rib pain Flex seal leaking, had 1 moderate episode of diarrhea.
[2023-07-12] MEDS: ALBUTEROL/IPRATROPIUM 3 ML AMPUL INH ×3 (07:31→18:01)
[2023-07-12 07:33] LABS: Troponin I 0.241 ng/mL (0.01-0.034)
[2023-07-12] MEDS: POTASSIUM CHLORIDE 10 MEQ TAB PO ×2 (08:20→17:43)
[2023-07-12] MEDS: ENOXAPARIN 40 MG/0.4 ML SYRINGE SUBCUT (08:21)
[2023-07-12] MEDS: PANTOPRAZOLE 40 MG VIAL IV (08:21)
[2023-07-12] MEDS: SODIUM CHLORIDE 0.9% FLUSH 10 ML IV ×2 (08:21→20:28)
--- NOTE | 2023-07-12 09:42 | P.HP_ITS ---
History of Present Illness History of Present Illness Date Patient Seen: 07/12/23 Chief complaint: OD Narrative: From night doctor: The pt is a 68 yo with a hx of CAD, CVA, COPD, CHF and chronic back pain treated with methadone 70 mg daily who was found by his friends unconscious and EMS was called. 20 mg of intranasal Narcan given which caused him to be very anxious and combative and then 5mg of versed was given. In the ER, he was very hypertensive with sBP>200 but somnolent. A secondary dose of the Narcan was given in the ER, he started having profuse diarrhea and a flex seal rectal tube was placed due to the high volume of stool as well as a marina catheter was placed. During my interview, he was able to answer questions and reports that he smokes Fentanyl about weekly, maybe sometimes more frequent as well as the high dose methadone, He denies any vomiting, no CP, SOB< cough, fevers, or chills lately. The patient was last discharged from the hospital June 10 at which time he had a ground level fall resulting in rib fractures and was in the hospital for 4 days. This morning the patient states he is having no pain or nausea and is quite hungry. [facility] Medical History Chronic neck and back pain Systolic congestive 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, NYHA class 1 Left hemiparesis Stroke Right rib fracture Coronary artery disease Hypertension Surgical History History of cholecystectomy Hx of fusion of cervical spine History of surgery on wrist History of shoulder surgery History of laparotomy Family History Father Parkinsons Mother Cancer Brother Cancer Sister No significant medical problems Social History household members: spouse Smoking Status: Former smoker alcohol intake: former substance use type: does not use Meds Home Medications and Allergies Home Medications Medication Instructions Recorded Confirmed Type acetaminophen 500 mg tablet 1,000 mg PO Q6H PRN Pain (Scale 11/21/18 07/12/23 History Score 1-3) carvedilol 25 mg tablet 25 mg PO BID #60 tabs 09/12/22 03/12/24 Rx losartan 100 mg tablet 100 mg PO DAILY #30 tabs 01/11/22 07/12/23 Rx amlodipine 5 mg tablet 5 mg PO BID #30 tabs 07/22/22 07/12/23 Rx albuterol sulfate 2.5 mg/3 mL 2.5 mg inhalation 3XW 08/16/22 07/12/23 History (0.083 %) solution for nebulization albuterol sulfate 90 mcg/actuation 2 inh inhalation DAILY 08/16/22 07/12/23 History aerosol inhaler (Ventolin HFA) citalopram 20 mg tablet 20 mg PO DAILY 08/16/22 07/12/23 History docusate sodium 100 mg capsule 100 mg PO BID #30 caps 06/10/23 Rx (Colace) methadone 10 mg tablet 70 mg PO DAILY 07/12/23 07/12/23 History Allergies Allergy/AdvReac Type Severity Reaction Status Date / Time NSAIDS (Non-Steroidal Allergy Severe Swelling Verified 07/22/22 13:49 Anti-Inflamma of Lip/Tongue/Throat Penicillins [PENICILLINS] Allergy Severe Swelling Verified 08/17/22 11:56 of Lip/Tongue/Throat chocolate flavor Allergy Intermediate Swelling Verified 07/22/22 13:49 of Lip/Tongue/Throat peanut Allergy Intermediate Swelling Verified 07/22/22 13:49 of Lip/Tongue/Throat strawberry Allergy Intermediate Swelling Verified 07/22/22 13:49 of Lip/Tongue/Throat celecoxib [From CELEBREX] Allergy Unknown Verified 07/22/22 13:49 lisinopril [LISINOPRIL] Allergy Unknown Verified 07/22/22 13:49 meloxicam [MELOXICAM] Allergy Unknown ANAPHYLAXSI Verified 07/22/22 13:49 S avocado AdvReac Intermediate Swelling Verified 07/22/22 13:49 of Lip/Tongue/Throat peas AdvReac Intermediate Swelling Verified 07/22/22 13:49 of Lip/Tongue/Throat sulfite AdvReac Intermediate Migraine Verified 07/22/22 13:49 Review of Systems Review of Systems Narrative: All else reviewed and otherwise unremarkable except as noted in the history and physical. Exam Vital Signs (past 8 hours): - 07/12/23 01:45 07/12/23 02:00 07/12/23 02:00 Temperature Pulse Rate 89 Respiratory Rate 35 H Blood Pressure 202/101 H Pulse Oximetry 100 Oxygen Delivery Method Nasal Cannula Oxygen Flow Rate 4 07/12/23 02:43 07/12/23 02:43 07/12/23 03:00 Temperature Pulse Rate 73 73 70 Respiratory Rate 34 H Blood Pressure 202/101 H 202/101 H Pulse Oximetry 97 Oxygen Delivery Method Oxygen Flow Rate 07/12/23 03:00 07/12/23 03:10 07/12/23 04:00 Temperature Pulse Rate 70 Respiratory Rate Blood Pressure 200/92 H 200/92 H 155/75 H Pulse Oximetry Oxygen Delivery Method Oxygen Flow Rate 4 07/12/23 04:00 07/12/23 04:00 07/12/23 04:29 Temperature 97.9 F Pulse Rate 80 80 74 Respiratory Rate 36 H 19 Blood Pressure 155/75 H Pulse Oximetry 96 96 Oxygen Delivery Method Nasal Cannula Oxygen Flow Rate 4 2 07/12/23 05:00 07/12/23 05:00 07/12/23 05:30 Temperature Pulse Rate 68 Respiratory Rate 39 H Blood Pressure 155/74 H Pulse Oximetry 97 Oxygen Delivery Method Nasal Cannula Oxygen Flow Rate 4 07/12/23 06:00 07/12/23 06:00 07/12/23 07:00 Temperature Pulse Rate 66 65 Respiratory Rate 30 H 35 H Blood Pressure 138/76 Pulse Oximetry 98 97 Oxygen Delivery Method Oxygen Flow Rate 3 07/12/23 07:00 07/12/23 07:34 07/12/23 08:00 Temperature Pulse Rate 65 Respiratory Rate 24 Blood Pressure 152/86 H Pulse Oximetry 96 96 Oxygen Delivery Method Nasal Cannula Oxygen Flow Rate 2 07/12/23 08:00 07/12/23 08:20 07/12/23 08:21 Temperature Pulse Rate 64 Respiratory Rate Blood Pressure 164/82 H 164/82 H 164/82 H Pulse Oximetry Oxygen Delivery Method Oxygen Flow Rate 07/12/23 09:00 07/12/23 09:00 07/12/23 09:00 Temperature Pulse Rate 66 Respiratory Rate 27 H Blood Pressure 143/80 H Pulse Oximetry 96 Oxygen Delivery Method Nasal Cannula Oxygen Flow Rate Oxygen Delivery Method Nasal Cannula Oxygen Flow Rate 2 Narrative Exam Narrative: NAD, alert and oriented, fluent speech, calm. Normocephalic skull, EOMI, anicteric sclera, symmetric pupils. Oropharynx unremarkable, no droop. Neck supple, midline trachea, no adenopathy. Lungs clear, normal rate and effort. Heart regular, no murmur gallop or rub. Abdomen is soft, non distended and non tender. Extremities are free of edema. Skin is free of rash or lesions. Joints are not swollen or deformed. Judgment appears to be normal. Objective Imaging CT scan - head: Radiologist's impression: CT: No acute intracranial pathology. CTA: 1. Moderately motion degraded exam. 2. No significant intracranial arterial abnormality is seen. 3. No significant abnormality is seen within the arteries of the neck. Chest x-ray: Radiologist's impression: No acute cardiopulmonary abnormality is seen. Labs 07/12/23 01:48 07/12/23 01:48 Labs: Laboratory Results - last 24 hr 07/11/23 07/11/23 07/11/23 21:20 23:13 23:23 WBC 14.0 H RBC 4.77 Hgb 13.4 L Hct 40.3 L MCV 84.5 MCH 28.0 MCHC 33.2 RDW 13.7 Plt Count 321 Neut % (Auto) 86.1 H Lymph % (Auto) 4.3 L [place] % (Auto) 5.5 Eos % (Auto) 2.7 Baso % (Auto) 1.4 Neut # (Auto) 24891 H Lymph # (Auto) 600 L [place] # (Auto) 800 Eos # (Auto) 400 Baso # (Auto) 200 H Sodium 140 Potassium 4.0 Chloride 100 Carbon Dioxide 29 BUN 24 H Creatinine 1.20 Estimated GFR > 60 BUN/Creatinine Ratio 20.0 Glucose 133 H Lactate 2.2 H 1.5 Calcium 9.7 Magnesium Total Bilirubin 0.7 Conjugated Bilirubin 0.0 Unconjugated Bilirubin 0.3 AST 45 ALT 20 Alkaline Phosphatase 114 Total Creatine Kinase 197 H Troponin I 0.042 H 0.110 H NT-Pro-B Natriuret Pep 1950 H Total Protein 8.6 H Albumin 4.8 Globulin 3.8 Albumin/Globulin Ratio 1.3 Prealbumin Nasal Screen MRSA (PCR) Salicylates < 1.0 U Opiates 300ng/mL cut Negative Ur Oxycodone Screen Negative Urine Methadone Screen Positive H Acetaminophen < 10 Ur Barbiturates Screen Negative U Tricyclic Antidepress Negative Ur Phencyclidine Scrn Negative Ur Amphetamines Screen Negative U Methamphetamines Scrn Negative Ur MDMA Scrn (Ecstasy) Negative U Benzodiazepines Scrn Negative Urine Cocaine Screen Negative U Marijuana (THC) Screen Positive H Urine pH Normal Urine Specific [place] Normal Ethyl Alcohol < 10 Ur Creatinine Normal SARS-CoV-2 (PCR) Negative Influenza A (RT-PCR) Flu a negative Influenza B (RT-PCR) Flu b negative RSV (PCR) Negative 07/12/23 07/12/23 07/12/23 01:48 02:15 06:55 WBC 10.5 RBC 4.95 Hgb 14.1 Hct 41.7 MCV 84.2 MCH 28.5 MCHC 33.8 RDW 13.7 Plt Count 325 Neut % (Auto) 90.4 H Lymph % (Auto) 6.0 L [place] % (Auto) 2.8 L Eos % (Auto) 0.1 L Baso % (Auto) 0.7 Neut # (Auto) 9500 H Lymph # (Auto) 600 L [place] # (Auto) 300 Eos # (Auto) 0 Baso # (Auto) 100 Sodium 140 Potassium 3.4 Chloride 103 Carbon Dioxide 28 BUN 24 H Creatinine 1.16 Estimated GFR > 60 BUN/Creatinine Ratio 20.7 Glucose 174 H Lactate 1.3 Calcium 9.6 Magnesium 2.0 Total Bilirubin 0.8 Conjugated Bilirubin Unconjugated Bilirubin AST 43 ALT 21 Alkaline Phosphatase 133 H Total Creatine Kinase Troponin I 0.167 H* 0.241 H* NT-Pro-B Natriuret Pep 3450 H Total Protein 9.0 H Albumin 4.8 Globulin 4.2 H Albumin/Globulin Ratio 1.1 Prealbumin 17.0 L Nasal Screen MRSA (PCR) Not detected Salicylates U Opiates 300ng/mL cut Ur Oxycodone Screen Urine Methadone Screen Acetaminophen Ur Barbiturates Screen U Tricyclic Antidepress Ur Phencyclidine Scrn Ur Amphetamines Screen U Methamphetamines Scrn Ur MDMA Scrn (Ecstasy) U Benzodiazepines Scrn Urine Cocaine Screen U Marijuana (THC) Screen Urine pH Urine Specific [place] Ethyl Alcohol Ur Creatinine SARS-CoV-2 (PCR) Influenza A (RT-PCR) Influenza B (RT-PCR) RSV (PCR) Assessment & Plan Assessment & Plan narrative: 1. Fentanyl Overdose with narcotic dependency- Narcan given in the ER, I have discussed the pt's presentation and labs with the ER provider and agree with the decision for admission. I have ordered ICU/ intensive bed, frequent monitoring and vitals, Narcan prn, currently on 3 lpm NC with SaO2- 99%, 2. CHF exacerbation - elevated pro-BNP of 1969, lasix 40 mg IV Q8 hr ordered, has marina inplace, monitoring accurate I/O's, daily weights, he is on RA at home. restarting home meds of coreg, ASA, 3. HTN urgency- related to his narcotic withdrawl, lasix, coreg and losartan ordered BID, PRN metoporlol and hydralazine for BP control, 4. CAD with elevated troponin- recheck troponins serially, on telemetry, mildly elevated to 0.11, most likely related to the myocardial stress with the HTN , 5. hx of CVA- consider PT/OT, no new neurological findings noted on exam. PLAN: He is improved this morning and having no sedation or active withdrawal. We will ambulate him and feed him. We will follow his breathing. Time Spent With Patient Time with patient: 30 to 49 minutes with 50% spent counseling/coordinating care Quality VTE Deep Vein Thrombosis/Pulmonary Embolism Present on Admission: No MIPS - Admit I confirm the patient?s Advance Care Plan is present, Code status is documented, Surrogate decision maker is in patient?s record [If Yes, STOP here]: Yes MIPS - Meds 'Current medications' to include all prescriptions, [id number] products, herbals, cannabis/cannabidiol products, and vitamin/mineral/dietary (nutritional) supplements. I have utilized all available resources to obtain, update, or review the patient?s current medications. [If Yes, STOP here]: Yes
[2023-07-12] MEDS: ACETAMINOPHEN 325 MG TABLET 650 MG PO (10:50)
--- NOTE | 2023-07-12 14:53 | CM.DANOTE ---
DCP Assessment Note Pt is a 68yo M presented after an accidental fentanyl overdose. Pt lives in an apartment with his spouse, Arianne, in [place]. PCP: [facility] Family Physican: Margaret Siegel Payer: [place] Medicare, Medicaid, and [facility] Reviewed chart and team rounds for pt's medical status and initial discharge needs. PHOTOLITH OPERATOR met w/patient at bedside; introduced self and role. Pt was lying in bed, easily awoken, alert and oriented. Pt confirmed living situation with spouse and DMEs utilized at home (walking cane and nebulizer). Pt reports he relies on others for transportation as their truck is currently inoperable, confirmed use of Medicaid transport through the [facility] Pt declined any pending discharge needs at this time apart from setting up transport at time of discharge. Plan: Monitoring for pending plan of care. CM team will plan to follow clinical course closely for assessment of need and coordination of discharge plan. BERT Payne Discharge Planning/Care Management CM Discharge Assessment Start: 07/12/23 14:45 Freq: Status: Active Protocol: Document 07/12/23 14:46 MW (Rec: 07/12/23 14:53 MW [id number]) Discharge Planning Assessment Assigned Port Engineer BERT Orozco DPOA/Assigned Designee Name Sister Rose Contact Information [phone] Advance Directives? Yes: DPOA for HC and POA Advance Directives on File Yes History Provided By Patient,Medical Record Has Patient been admitted in last 30 No days? Comment The patient was last discharged from the hospital after staying for 4 days, following a GLF and fractured ribs. Prior Living Arrangements Apartment/Condo Household Members spouse Type of transporation used prior to Medicaid Transport admit Independent with ADL's Yes Is patient alert and oriented? Yes DME Already Rented / Owned Cane,Nebulizer Barriers to Discharge No Discharge Plan Home Transportation Arrangement Pt identified needing assistance with setting up transport home with Medicaid transportation. Additional Comment Following for evolving Plan of Care. Whiteboard Updated in Patient Room with Yes name and ext. # of Port Engineer Please Provide Date Initial DC 07/12/23 Assessment Was Performed Next Review Type Continued Stay Review
[2023-07-12] MEDS: OXYCODONE IR 10 MG TABLET PO ×2 (19:20→23:47)
[2023-07-12] MEDS: LORazepam 2 MG/ML INJ 1 MG IV (20:28)
[2023-07-12] MEDS: AMLODIPINE 5 MG TABLET PO (20:29)
[2023-07-13] VITALS (27 sets, daily range): BP systolic 110–152; BP diastolic 55–76; PULSE 56–83; RESP 11–52; TEMP 36–36.6; O2SAT 90–100
[2023-07-13] MEDS: FUROSEMIDE 40 MG/4 ML VIAL IV ×2 (02:11→09:45)
[2023-07-13] MEDS: OXYCODONE IR 10 MG TABLET PO ×4 (05:02→21:27)
[2023-07-13] MEDS: PANTOPRAZOLE 40 MG VIAL IV (08:35)
[2023-07-13] MEDS: SODIUM CHLORIDE 0.9% FLUSH 10 ML IV ×2 (08:35→20:48)
[2023-07-13] MEDS: LOSARTAN 50 MG TABLET 100 MG PO (08:36)
[2023-07-13] MEDS: POTASSIUM CHLORIDE 10 MEQ TAB PO ×2 (08:36→18:11)
[2023-07-13] MEDS: carvediloL 12.5 MG TABLET 25 MG PO ×2 (08:36→20:49)
[2023-07-13] MEDS: ENOXAPARIN 40 MG/0.4 ML SYRINGE SUBCUT (08:36)
[2023-07-13] MEDS: AMLODIPINE 5 MG TABLET PO ×2 (08:36→20:49)
[2023-07-13] MEDS: CITALOPRAM 10 MG TABLET 20 MG PO (08:36)
[2023-07-13] MEDS: METHADONE 10 MG TABLET 70 MG PO (08:36)
[2023-07-13] MEDS: ALBUTEROL/IPRATROPIUM 3 ML AMPUL INH ×5 (09:00→22:55)
--- NOTE | 2023-07-13 09:37 | PM.PN.1 ---
Subjective Subjective Interval history: More awake today, no shortness a breath. He does have a fair amount of left anterior chest pain with deep breathing. No abdominal pain or nausea. He did eat breakfast. Exam Vital Signs (past 8 hours): - 07/13/23 02:00 07/13/23 03:00 07/13/23 04:00 Temperature Pulse Rate 74 64 69 Respiratory Rate 47 H 31 H 29 H Blood Pressure Pulse Oximetry 96 95 94 Oxygen Delivery Method Oxygen Flow Rate 07/13/23 04:25 07/13/23 04:25 07/13/23 05:00 Temperature 96.8 F L Pulse Rate 65 83 Respiratory Rate 38 H 52 H Blood Pressure 152/71 H Pulse Oximetry 96 97 Oxygen Delivery Method Oxygen Flow Rate 1 07/13/23 06:00 07/13/23 07:00 07/13/23 07:35 Temperature 97.2 F L Pulse Rate 76 74 70 Respiratory Rate 29 H 25 H 42 H Blood Pressure 149/76 H Pulse Oximetry 90 L 92 93 Oxygen Delivery Method Oxygen Flow Rate 1 07/13/23 07:35 07/13/23 08:00 07/13/23 08:00 Temperature Pulse Rate 70 67 Respiratory Rate 42 H 25 H Blood Pressure Pulse Oximetry 93 94 Oxygen Delivery Method Nasal Cannula Oxygen Flow Rate 07/13/23 09:00 Temperature Pulse Rate 73 Respiratory Rate 24 Blood Pressure Pulse Oximetry 92 Oxygen Delivery Method Nasal Cannula Oxygen Flow Rate 3 Fraction of Inspired Oxygen 21 SaO2/FiO2 Ratio 447 Oxygen Delivery Method Nasal Cannula Oxygen Flow Rate 3 Narrative Exam Narrative: NAD, alert and oriented. Fluent speech. He is moaning intermittently from his pain. Lungs are clear, normal rate and effort. Heart is regular, no murmur gallop or rub. Abdomen is soft, non distended. Extremities are free of edema. Objective Labs 07/12/23 01:48 07/12/23 01:48 [facility] Medical History Chronic neck and back pain Systolic congestive 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, NYHA class 1 Left hemiparesis Stroke Right rib fracture Coronary artery disease Hypertension Surgical History History of cholecystectomy Hx of fusion of cervical spine History of surgery on wrist History of shoulder surgery History of laparotomy Family History Father Parkinsons Mother Cancer Brother Cancer Sister No significant medical problems Social History household members: spouse Smoking Status: Former smoker alcohol intake: former substance use type: does not use Assessment & Plan Assessment & Plan narrative: 1. Fentanyl Overdose with narcotic dependency -he is awake and doing well. We have resumed his baseline methadone and oxycodone as needed. He has a normal mental status and respirations are normal. 2. CHF exacerbation - -he is improved, we will continue with diuresis and restarting home meds of coreg, ASA -wean O2 as able. 3. HTN urgency- -this is improved, continue baseline medications and monitor blood pressure. 4. CAD with elevated troponin- -we will recheck troponin, he has having no symptoms concerning for myocardial ischemia. Continue usual medications. 5. hx of CVA- consider PT/OT, no new neurological findings noted on exam. -out of bed, PT. Dispo: Possible discharge within 1-2 days. Quality VTE Deep Vein Thrombosis/Pulmonary Embolism Present on Admission: No
[2023-07-13 12:15] LABS: Add Manual Diff / Slide Review NO; Basophils Absolute Auto 0 /uL (0-100); Basophils Percent Auto 0.2 % (0-2); Eosinophils Absolute Auto 200 /uL (0-450); Eosinophils Percent Auto 2.2 % (2-4); Hematocrit 40.4 % (41-53); Hemoglobin 13.5 g/dL (13.5-17.5); Lymphocytes Absolute Auto 600 /uL (1100-4500); Lymphocytes Percent Auto 8.6 % (25-40); Mean Corpuscular HGB Conc 33.5 % (30-36); Mean Corpuscular Volume 83.5 fL (80-100); Monocytes Absolute Auto 600 /uL (0-900); Monocytes Percent Auto 8.7 % (3-14); Neutrophils Absolute Auto 5700 /uL (1500-7000); Neutrophils Percent Auto 80.3 % (50-75); Platelet Count 307 X10^3/uL (150-400); Red Blood Cell Count 4.84 X10^6/uL (4.5-5.9); Red Cell Distribution Width 13.9 % (11.6-14.8); White Blood Cell Count 7.2 X10^3/uL (4.5-11.0)
[2023-07-13] MEDS: POTASSIUM CHLORIDE 20 MEQ TAB PO (12:18)
[2023-07-13 12:29] LABS: BUN Creatinine Ratio 19.9 (6-22); Blood Urea Nitrogen 40 mg/dL (9-20); Calcium 9.1 mg/dL (8.4-10.2); Carbon Dioxide 30 mmol/L (22-32); Chloride 103 mmol/L (98-107); Estimated Glomerular Filt Rate 35 mL/min (>60); Glucose 103 mg/dL (80-110); HEMOLYSIS < 15 (0-50); Potassium 3.8 mmol/L (3.4-5.1); Sodium 140 mmol/L (137-145)
[2023-07-13] MEDS: ACETAMINOPHEN 325 MG TABLET 650 MG PO (14:49)
--- NOTE | 2023-07-13 16:46 | PC.NURSE ---
Day Shift Note Patient alert and oriented x3. Lungs coarse with rhonchi bilaterally. On 2L NC at start of shift but titrated to 4L NC. SpO2 90-93%, desats to upper 80s with activity. Instructed on use of IS, pt able to return demo, using independently. Reports pain 8/10 to left ribs, especially when coughing and taking deep breaths. Received scheduled methadone this morning and prn tylenol/oxycodone this afternoon for pain control. Up to chair SBA, steady on feet, no assistive devices required, activity limited due to shortness of breath and pain with deep breaths. Call light within reach, using appropriately to make needs known.
[2023-07-14] VITALS (20 sets, daily range): BP systolic 116–154; BP diastolic 61–75; PULSE 53–71; RESP 12–50; TEMP 36–36.1; O2SAT 91–100
[2023-07-14] MEDS: OXYCODONE IR 10 MG TABLET PO ×4 (00:30→15:25)
[2023-07-14] MEDS: ACETAMINOPHEN 325 MG TABLET 650 MG PO ×2 (03:43→12:46)
[2023-07-14] MEDS: CITALOPRAM 10 MG TABLET 20 MG PO (08:12)
[2023-07-14] MEDS: METHADONE 10 MG TABLET 70 MG PO (08:12)
[2023-07-14] MEDS: carvediloL 12.5 MG TABLET 25 MG PO (08:12)
[2023-07-14] MEDS: ENOXAPARIN 40 MG/0.4 ML SYRINGE SUBCUT (08:12)
[2023-07-14] MEDS: AMLODIPINE 5 MG TABLET PO (08:12)
[2023-07-14] MEDS: SODIUM CHLORIDE 0.9% FLUSH 10 ML IV (08:16)
[2023-07-14] MEDS: POTASSIUM CHLORIDE 10 MEQ TAB PO (08:16)
[2023-07-14] MEDS: ALBUTEROL/IPRATROPIUM 3 ML AMPUL INH ×3 (08:54→14:41)
--- NOTE | 2023-07-14 09:06 | P.PN_ITS ---
Subjective Subjective Interval history: He feels little bit better today. Still on 1 L of oxygen and a little bit wheezy. He still has left anterior rib pain. His creatinine was little higher yesterday with labs pending this morning. Exam Vital Signs (past 8 hours): - 07/14/23 02:00 07/14/23 03:00 07/14/23 03:46 Temperature Pulse Rate 53 L 55 L 60 Respiratory Rate 21 19 16 Blood Pressure Pulse Oximetry 100 98 98 Oxygen Delivery Method Oxygen Flow Rate 07/14/23 03:46 07/14/23 04:00 07/14/23 04:00 Temperature 96.8 F L Pulse Rate 61 58 L Respiratory Rate 20 15 Blood Pressure 116/61 116/61 Pulse Oximetry 96 96 Oxygen Delivery Method Oxygen Flow Rate 1 07/14/23 05:00 07/14/23 06:00 07/14/23 07:00 Temperature Pulse Rate 59 L 54 L Respiratory Rate 29 H 19 Blood Pressure Pulse Oximetry 96 98 Oxygen Delivery Method Nasal Cannula Oxygen Flow Rate 07/14/23 07:00 07/14/23 08:00 Temperature Pulse Rate 57 L 57 L Respiratory Rate 27 H 19 Blood Pressure 154/75 H Pulse Oximetry 98 97 Oxygen Delivery Method Oxygen Flow Rate Fraction of Inspired Oxygen 28 SaO2/FiO2 Ratio 328 Oxygen Delivery Method Nasal Cannula Oxygen Flow Rate 1 Narrative Exam Narrative: NAD, intermittent moaning. Fluent speech.\ Lungs are expiratory wheezing and good air movement. Heart is regular, no murmur. Abdomen is soft, distended, non tender. No leg edema. Objective Labs 07/13/23 12:00 07/13/23 12:00 Labs: Laboratory Results - last 24 hr 07/13/23 12:00 WBC 7.2 RBC 4.84 Hgb 13.5 Hct 40.4 L MCV 83.5 MCH 28.0 MCHC 33.5 RDW 13.9 Plt Count 307 Neut % (Auto) 80.3 H Lymph % (Auto) 8.6 L [place] % (Auto) 8.7 Eos % (Auto) 2.2 Baso % (Auto) 0.2 Neut # (Auto) 5700 Lymph # (Auto) 600 L [place] # (Auto) 600 Eos # (Auto) 200 Baso # (Auto) 0 Sodium 140 Potassium 3.8 Chloride 103 Carbon Dioxide 30 BUN 40 H Creatinine 2.01 H Estimated GFR 35 L BUN/Creatinine Ratio 19.9 Glucose 103 Calcium 9.1 Troponin I 0.060 H [facility] Medical History Chronic neck and back pain Systolic congestive 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, NYHA class 1 Left hemiparesis Stroke Right rib fracture Coronary artery disease Hypertension Surgical History History of cholecystectomy Hx of fusion of cervical spine History of surgery on wrist History of shoulder surgery History of laparotomy Family History Father Parkinsons Mother Cancer Brother Cancer Sister No significant medical problems Social History household members: spouse Smoking Status: Former smoker alcohol intake: former substance use type: does not use Assessment & Plan Assessment & Plan narrative: 1. Fentanyl Overdose with narcotic dependency, present on admission and improved. -he is awake and doing well. We have resumed his baseline methadone and oxycodone as needed. He has a normal mental status and respirations are normal. 2. Acute on chronic systolic heart failure, present on admission and improving- -he is improved, we will continue coreg, ASA -wean O2 as able. -he did bump his creatinine with diuresis yesterday, are holding at this point. 3. HTN urgency, present on admission and improving. -this is improved, continue baseline medications and monitor blood pressure. 4. CAD with elevated troponin, present on admission and improving. He already repeat. -we will perform limited echo to reassess LV EF and rule out wall motion abnormalities. Continue his chronic cardiac medications. 5. Remote f CVA- consider PT/OT, no new neurological findings noted on exam. -out of bed, PT. -limited echo -wean O2 -nebs as needed Dispo: Possible discharge within 0-1 days. Quality VTE Deep Vein Thrombosis/Pulmonary Embolism Present on Admission: No
[2023-07-14 10:09] LABS: Add Manual Diff / Slide Review NO; Basophils Absolute Auto 100 /uL (0-100); Basophils Percent Auto 1.5 % (0-2); Eosinophils Absolute Auto 400 /uL (0-450); Eosinophils Percent Auto 7.4 % (2-4); Hematocrit 41.7 % (41-53); Hemoglobin 13.8 g/dL (13.5-17.5); Lymphocytes Absolute Auto 700 /uL (1100-4500); Lymphocytes Percent Auto 11.3 % (25-40); Mean Corpuscular HGB Conc 33.1 % (30-36); Mean Corpuscular Hemoglobin 28.2 PG (26-34); Monocytes Absolute Auto 500 /uL (0-900); Monocytes Percent Auto 8.2 % (3-14); Neutrophils Absolute Auto 4200 /uL (1500-7000); Neutrophils Percent Auto 71.6 % (50-75); Platelet Count 305 X10^3/uL (150-400); Red Cell Distribution Width 14.1 % (11.6-14.8); White Blood Cell Count 5.9 X10^3/uL (4.5-11.0)
[2023-07-14 10:37] LABS: BUN Creatinine Ratio 20.7 (6-22); Blood Urea Nitrogen 53 mg/dL (9-20); Carbon Dioxide 33 mmol/L (22-32); Chloride 102 mmol/L (98-107); Estimated Glomerular Filt Rate 27 mL/min (>60); Glucose 150 mg/dL (80-110); HEMOLYSIS 15 (0-50); Potassium 4.5 mmol/L (3.4-5.1); Sodium 139 mmol/L (137-145)
--- NOTE | 2023-07-14 11:14 | DI.ECHO.S_ITS ---
[place] +---------+ Hospital +---------+ : : [address] : : [place] : : : : [id number] : : : : Phone: [phone]+ Echocardiogram Report + + :Name: CUONG DUPONT JR Melgar Study Date: 07/14/2023 Height: 67 in : :[facility] ReadingLocation: Weight: 207 lb : : Gender: Male BSA: 2.1 m2 : :: 1955 Age: 68 yrs BP: 154/75 mmHg: :Reason For Study: LV function : : Performed By: Audrey Guerra : + + Interpretation Summary A two-dimensional transthoracic echocardiogram with color flow and Doppler was performed in limited views only. The ejection fraction is estimated to be 55-60%. The right ventricle grossly appears normal in size with probable normal systolic function. Procedure: A two-dimensional transthoracic echocardiogram with color flow and Doppler was performed in limited views only. The study quality was technically adequate. Comparison is made with the echocardiogram of 10-18-22. The heart rate ranged between 54-57 bpm during the study. Left Ventricle: The left ventricle is normal in size. There is normal left ventricular wall thickness. The ejection fraction is estimated to be 55-60%. Diastolic function could not be accurately assessed due to unobtainable data. Right Ventricle: The right ventricle grossly appears normal in size with probable normal systolic function. Mitral Valve: There is no mitral regurgitation noted. Aortic Valve: No aortic regurgitation is present. Tricuspid Valve: No tricuspid regurgitation. MMode/2D Measurements & Calculations LVIDd: 5.1 cm LA A2 area: 25.4 cm2 LVIDs: 3.2 cm LA A4 area: 25.5 cm2 FS: 37.4 % LA length (vol): 6.8 cm EPSS: 0.76 cm LA vol: 81.0 ml IVSd: 1.2 cm LA vol index: 39.5 ml/m2 LVPWd: 0.86 cm LV pina. diameter/BSA (cm/m^2): 2.5 LV sys. diameter/BSA (cm/m^2): 1.6 RA long axis: 6.5 cm RA area: 23.0 cm2 RA vol: 69.7 ml RA : 34.0 ml/m2 Doppler Measurements & Calculations Ao V2 max: 142.8 cm/sec MV E max won: 61.0 cm/sec Ao V2 mean: 100.3 cm/sec MV A max won: 63.0 cm/sec Ao max P.2 mmHg MV E/A: 0.97 Ao mean P.6 mmHg Med Peak E' Won: 5.2 cm/sec Ao V2 VTI: 31.2 cm E/E' med: 11.8 Lat Peak E' Won: 6.4 cm/sec E/E' lat: 9.5 E/e' average: 10.6 MV dec time: 0.27 sec Reading Physician:NASEEM
--- NOTE | 2023-07-14 12:44 | PT.IIE ---
Current Diagnoses Poisoning by fentanyl or fentanyl analogs, accidental (unintentional), initial encounter (07/12/23) Surgical History (Last Reviewed 07/12/23 @ 10:44 by Yasir Huitron MD) History of cholecystectomy History of laparotomy History of shoulder surgery History of surgery on wrist Hx of fusion of cervical spine Medical History (Last Reviewed 07/12/23 @ 10:44 by Yasir Huitron MD) Chronic neck and back pain Coronary artery disease Hypertension Left hemiparesis Right rib fracture Stroke Systolic congestive 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, NYHA class 1 Physical Therapy Inpatient Evaluation/Re-Eval M1 PT/OT-IP Prior Functional Status Start: 07/14/23 08:07 Freq: NEEDED Status: Active Protocol: Document 07/14/23 12:17 MB (Rec: 07/14/23 12:44 MB [id number]) Medical Review Prior Functional Status Medical History Reviewed Yes Diet/Fluid Consistency Regular Communication WNLs Mobility and Gait Mod I with cane Activities of Daily Living and IADL's Mod I per pt report Social History Household Members spouse Living Arrangements Apartment/Condo Number of Floors (Floors) One Floor Number of Stairs To Enter/Railing? No steps to enter Home Environment Standard Height Toilet,Tub/ Shower Home Equipment Straight Cane,Grab Bars Near Toilet,Grab Bars In Shower M2 PT-IP Current Condition Start: 07/14/23 08:07 Freq: NEEDED Status: Active Protocol: Document 07/14/23 12:17 MB (Rec: 07/14/23 12:44 MB [id number]) Physical Therapy Current Condition Current Condition Evaluation Date 07/14/23 Treatment Diagnosis Accidental Fentanyl OD M3 PT-IP Subjective Start: 07/14/23 08:07 Freq: NEEDED Status: Active Protocol: Document 07/14/23 12:17 MB (Rec: 07/14/23 12:44 MB [id number]) Subjective Physical Therapy Visit Type Type Initial Evaluation Visit Start Time 12:17 Visit Stop Time 12:35 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 Pt reports a fall outside at home and ongoing high rib pain Therapy Pain Assessment Pain When Pain Assessed During Mobility Pain Present Pain Present Pain Reported Location Ribs Intensity 7 Scale Used Richter-Dozier (Faces) Pain Management Techniques Distraction,Modification of Treatment,Re-positioning M4 PT-IP Mobility and Gait Start: 07/14/23 08:07 Freq: NEEDED Status: Active Protocol: Document 07/14/23 12:17 MB (Rec: 07/14/23 12:44 MB [id number]) PT-Bed Mobility Assessment Scooting Scooting to Edge of Bed Standby Assistance PT-Transfer Assessment Sit to and From Stand Sit to and from Stand Standby Assistance,1 Person Assistance,Use of Upper Extremities Equipment Transfer Assistive Device None Transfers Transfer Destination Chair Transfer Technique Ambulation Transfer Ability Level of Assist Standby Assistance Comments Mobility Comments Pt sitting on EOB and reporting high rib pain upon arrival and so bed mobility and gait belt both deferred by PT today. Pt and nsg state that pt has been up taking short gait steps without AD with SBA. Gait Assessment Gait Gait Assistance Required: Standby Assistance Distance (Feet) 35 Able to Maintain Weight Bearing Status Yes During Gait Assistive Devices Assistive Device None Orthotic/Prosthetic Devices or Brace: No Gait Deviations General Gait Pattern Antalgic,Decreased Stride Length,Decreased Feet Clearance,Wide Based Gait Factors Limiting Gait Function Factors Limiting Gait Function Decreased Activity Tolerance, Pain,Poor Balance,Poor Safety Awareness Comments Gait Comments Pt gait trains around the bed and back to the chair and has slow and antalgic movement, complaining of rib pain PT-Balance Assessment Sitting Balance and Reactions Static Sitting Balance Ability Normal Dynamic Sitting Balance Ability Good Standing Balance and Reactions Static Standing Balance Ability Good Dynamic Standing Balance Ability Fair M5 PT-IP Objective Assessments Start: 07/14/23 08:07 Freq: NEEDED Status: Active Protocol: Document 07/14/23 12:17 MB (Rec: 07/14/23 12:44 MB [id number]) Orientation Orientation/Cognition Level of Alertness Alert Language Function Ability No Deficits Noted Safety Awareness Decreased Safety Awareness Memory Description No Deficits Noted Gross Range of Motion Upper Extremity ROM Impairments Deferred d/t rib pain Lower Extremity ROM Assessment Within Functional Limits Strength Lower Extremity Strength Assessment Within Functional Limits M6 PT-IP Treatment Start: 07/14/23 08:07 Freq: NEEDED Status: Active Protocol: Document 07/14/23 12:17 MB (Rec: 07/14/23 12:44 MB [id number]) Physical Therapy Treatment Education Education Provided Safety M7 PT-IP Assessment and Plan Start: 07/14/23 08:07 Freq: NEEDED Status: Active Protocol: Document 07/14/23 12:17 MB (Rec: 07/14/23 12:44 MB [id number]) PT Summary Assessment and Plan Potential Rehabilitation Potential Fair Status of Condition at Evaluation Evolving Summary Impairments Pain,Balance,Bed Mobility, Transfers,Gait,Activity Tolerance Progress Towards Goals Progressing Toward Goals Assessment Summary Pt is a 68 y/o male presenting with reports of high pain in ribs after fall outside home. Pt performs transfers and short gait with SBA today and his vitals remain WNLs during PT assessment. Goals Bed Mobility Goal Independent Transfer Goal Independent,Cane,Front Wheeled Walker Gait Goal Independent,Cane,Front Wheel Walker Gait Distance 100 Days to Meet Goals 5 Frequency of Treatment Frequency Of Treatment Once a Day Treatment Plan Physical Therapy Treatment Plan Bed Mobility Training,Transfer Training,Gait Training, Therapeutic Exercise,Balance Retraining,Discharge Planning, Hot or Cold Pack,Neuromuscular Re-ed,Coordination Retraining ,Manual Therapy Weight Bearing Status Weight Bearing Status Weight Bear as Tolerated Recommendations To Nursing Amount of Assist Needed Standby Assistance Discharge Recommendations PT Discharge Recommendations Home with 22/11 Assist Available,Home Health Transportation Needs at Discharge Private Vehicle
--- NOTE | 2023-07-14 13:41 | PM.DS.1 ---
History of Present Illness History of Present Illness Chief complaint: OD Narrative: From night doctor: The pt is a 68 yo with a hx of CAD, CVA, COPD, CHF and chronic back pain treated with methadone 70 mg daily who was found by his friends unconscious and EMS was called. 20 mg of intranasal Narcan given which caused him to be very anxious and combative and then 5mg of versed was given. In the ER, he was very hypertensive with sBP>200 but somnolent. A secondary dose of the Narcan was given in the ER, he started having profuse diarrhea and a flex seal rectal tube was placed due to the high volume of stool as well as a marina catheter was placed. During my interview, he was able to answer questions and reports that he smokes Fentanyl about weekly, maybe sometimes more frequent as well as the high dose methadone, He denies any vomiting, no CP, SOB< cough, fevers, or chills lately. The patient was last discharged from the hospital June 10 at which time he had a ground level fall resulting in rib fractures and was in the hospital for 4 days. This morning the patient states he is having no pain or nausea and is quite hungry. Discharge Providers Provider Date of admission: 07/12/23 00:34 Discharge Date: 07/14/23 Primary care physician: TERRA Matute Consults: 07/13/23 09:41 Consult to Physical Therapy Evaluate & Treat Comment: Physician Instructions: Evaluate and Treat Discharge provider: Yasir Huitron MD Summary Hospital Course Discharge Diagnosis: 1. Fentanyl Overdose with narcotic dependency, present on admission and improved. 2. Acute on chronic systolic heart failure, present on admission and improving- -he is improved, we will continue coreg, ASA -he did bump his creatinine with diuresis yesterday, are holding at this point. 3. QUINTON (secondary to diuresis and Losartan), new and active. 4. HTN urgency, present on admission and improving. -this is improved, continued baseline medications (except Losartan) and monitor blood pressure. 5. CAD with elevated troponin (mild elevation), present on admission and improving. He already repeat. -limited ECHO: 6. Remote f CVA- consider PT/OT, no new neurological findings noted on exam. Hospital Course: The patient was admitted with a overdose of fentanyl in context of chronic back pain and methadone 30 mg daily. The patient has a history of CAD, CVA, CHF, and COPD. He was given nasal Narcan and brought to the ER where he was given a 2nd dose of Narcan. He developed profuse diarrhea and some shortness of breath. He initially had hypertensive urgency which improved with resumption of medications. He was given a dose of IV Lasix to diurese and oxygen. The patient had elevated troponins at 0.042 which trended up to 0.11, 0.167, 0.241, and then 0.060. He had no chest pain. The patient did develop a bump in his creatinine of 2.01 on the day before discharge and 2.56 on the day of discharge. His losartan was held and his Lasix was held on July 12. The patient was feeling reasonably well on the day of discharge and was able to come off from oxygen and ambulate. Has felt that he would be stable for discharge with very close monitoring of his laboratories including lab draw on July 14 and July 17. I will contact his clinic directly to request these labs and the patient agrees to have his labs drawn. In the meantime he will drink normal amount of fluid and hold losartan. Status at Discharge Cognitive/behavioral status at discharge: oriented Functional status at discharge: independent ambulation Overall status at discharge: patient is back to baseline Time Spent with Patient Time spent: Greater than 30 minutes Exam Vital Signs (past 8 hours): - 07/14/23 06:00 07/14/23 07:00 07/14/23 07:00 Pulse Rate 54 L 57 L Respiratory Rate 19 27 H Blood Pressure Pulse Oximetry 98 98 Oxygen Delivery Method Nasal Cannula 07/14/23 08:00 07/14/23 08:46 07/14/23 08:46 Pulse Rate 57 L 71 Respiratory Rate 19 28 H Blood Pressure 154/75 H 154/75 H Pulse Oximetry 97 92 Oxygen Delivery Method 07/14/23 08:54 07/14/23 09:00 07/14/23 09:05 Pulse Rate 69 66 Respiratory Rate 20 14 Blood Pressure Pulse Oximetry 93 96 92 Oxygen Delivery Method Nasal Cannula Room Air 07/14/23 10:00 07/14/23 10:32 07/14/23 11:00 Pulse Rate 58 L 59 L 60 Respiratory Rate 24 20 50 H Blood Pressure Pulse Oximetry 91 93 93 Oxygen Delivery Method Room Air 07/14/23 12:00 07/14/23 12:31 07/14/23 12:31 Pulse Rate 54 L 62 Respiratory Rate 20 30 H Blood Pressure 138/69 138/69 Pulse Oximetry 92 91 Oxygen Delivery Method Fraction of Inspired Oxygen 28 SaO2/FiO2 Ratio 328 Oxygen Delivery Method Room Air Oxygen Flow Rate 1 Narrative Exam Narrative: NAD, alert and oriented. Fluent speech. Lungs are clear, normal rate and effort. Heart is regular, no murmur gallop or rub. Abdomen is soft, non distended. Extremities are free of edema. Objective Imaging Chest x-ray: Radiologist's impression: No acute cardiopulmonary abnormality is seen. CT scan - head: Radiologist's impression: CT Brain: No acute intracranial pathology. CTA: 1. Moderately motion degraded exam. 2. No significant intracranial arterial abnormality is seen. 3. No significant abnormality is seen within the arteries of the neck. Labs 07/14/23 09:55 07/14/23 09:55 Labs: Laboratory Results - last 24 hr 07/14/23 09:55 WBC 5.9 RBC 4.90 Hgb 13.8 Hct 41.7 MCV 85.0 MCH 28.2 MCHC 33.1 RDW 14.1 Plt Count 305 Neut % (Auto) 71.6 Lymph % (Auto) 11.3 L Stearns % (Auto) 8.2 Eos % (Auto) 7.4 H Baso % (Auto) 1.5 Neut # (Auto) 4200 Lymph # (Auto) 700 L Stearns # (Auto) 500 Eos # (Auto) 400 Baso # (Auto) 100 Sodium 139 Potassium 4.5 Chloride 102 Carbon Dioxide 33 H BUN 53 H Creatinine 2.56 H Estimated GFR 27 L BUN/Creatinine Ratio 20.7 Glucose 150 H Calcium 9.0 PFSH Medical History Chronic neck and back pain Systolic congestive 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, NYHA class 1 Left hemiparesis Stroke Right rib fracture Coronary artery disease Hypertension Surgical History History of cholecystectomy Hx of fusion of cervical spine History of surgery on wrist History of shoulder surgery History of laparotomy Family History Father Parkinsons Mother Cancer Brother Cancer Sister No significant medical problems Social History household members: spouse Smoking Status: Former smoker alcohol intake: former substance use type: does not use Discharge Assessment & Plan Assessment and Plan Assessment: 1. Fentanyl Overdose with narcotic dependency, present on admission and improved. 2. Acute on chronic systolic heart failure, present on admission and improving- -he is improved, we will continue coreg, ASA -he did bump his creatinine with diuresis yesterday, are holding at this point. 3. QUINTON (secondary to diuresis and Losartan), new and active. 4. HTN urgency, present on admission and improving. -this is improved, continued baseline medications (except Losartan) and monitor blood pressure. 5. CAD with elevated troponin (mild elevation), present on admission and improving. He already repeat. -limited ECHO: 6. Remote f CVA- consider PT/OT, no new neurological findings noted on exam. Discharge Plan Discharge Plan Patient Disposition: Home Provider Discharge Comment: Arranged for repeat BMP at clinic 07/14 and 07/17 to follow creatinine and potassium. Patient agrees. Discharge orders & Medications Prescriptions: New oxycodone 5 mg tablet 5 mg PO Q8H PRN (Reason: pain) Qty: 14 0RF Continued carvedilol 25 mg tablet 25 mg PO BID Qty: 60 0RF Rx Instructions: must administer with a meal/food amlodipine 5 mg tablet 5 mg PO BID Qty: 30 0RF acetaminophen 500 mg Tablet 1,000 mg PO Q6H PRN (Reason: Pain (Scale Score 1-3)) citalopram 20 mg tablet 20 mg PO DAILY albuterol sulfate 2.5 mg /3 mL (0.083 %) solution for nebulization 2.5 mg inhalation 3XW albuterol sulfate [Ventolin HFA] 90 mcg/actuation HFA aerosol inhaler 2 inh INHALATION DAILY methadone 10 mg Tablet 70 mg PO DAILY Discontinued losartan 100 mg tablet 100 mg PO DAILY Qty: 30 0RF Follow up/Referrals: Pat Pisano ARNP [Primary Care Provider] - Miscellaneous,DoctorMD [Non-Staff] - Discharge Health Status Multidrug resistant organism: No MDRO Diet/Activity/Treatments Diet: Diet as Tolerated Activity: as tolerated Skin/Wound/Dressing Care Report to your healthcare provider any signs of infection, such as:: chills, fever and increased pain Visit Report/Discharge Packet Instructions: DI for Heart Failure Stand Alone Forms: Congestive Heart Failure, Patient Portal/API Discharge Data Primary Care Provider: Pat Pisano VTE Deep Vein Thrombosis/Pulmonary Embolism Present on Admission: No
--- NOTE | 2023-07-14 14:04 | CM.DPC ---
Addendum entered by BERT Cortez 07/14/23 14:58: [facility] confirmed transport for [phone]/entrance. Original Note: DCP Continued Reviewed EMR and team rounds for pt status. Per hospitalist, pt is ready for discharge when weaned off O2 and pending echo. PT recommending home with home health. DUCT LAYER met with pt at bedside. Pt was found alert and oriented, sitting up in chair. Pt endorsed eagerness to discharge home and requesting to change out of hospital gown. DUCT LAYER discussed discharge plans with pt, pt agreeable to discharging home via [facility] Medicaid transport and declined any referrals for HH as he will utilize PT at [facility]. DUCT LAYER called [facility] to confirm that he is still their patient. Pt was last seen at the clinic in April 2023 and clinic requested discharge summary to be faxed. Plan: Discharge in motion - faxed [facility] Hospital Discharge Request Form; waiting for transport to accept and give time for approximate pickup. Forwarded clinic number to hospitalist to discuss follow up. DUCT LAYER will fax discharge summary to Primary clinic. Will continue to follow for further discharge needs.
== END 2023-07-14 15:29 | disposition home or self-care (01) | DRG 917 ==
LOC: ED 07-12 00:18 → AC 07-12 00:35 → ICU 07-12 01:48
PROVIDERS: Hospitalist; Admitting Provider Internal Medicine; Emergency Provider Emergency Medicine; Family Provider Family Medicine; PCP Nurse Practitioner Family; Referring Provider Emergency Medicine; Visit Provider Internal Medicine
DX: T40.411A Poisoning by fentanyl or fentanyl analogs, accidental (unintentional), initial encounter (principal); I50.23 Acute on chronic systolic (congestive) heart failure; F11.20 Opioid dependence, uncomplicated; N17.9 Acute kidney failure, unspecified; I16.0 Hypertensive urgency; I11.0 Hypertensive heart disease with heart failure; I25.10 Atherosclerotic heart disease of native coronary artery without angina pectoris; R79.89 Other specified abnormal findings of blood chemistry; Z86.73 Personal history of transient ischemic attack (TIA), and cerebral infarction without residual deficits; Z87.891 Personal history of nicotine dependence
CPT/HCPCS: 0241U; 36415; 70450; 70496; 70498; 71045; 80048; 80053; 80076; 80305; 80320; 80329; 82550; 82962; 83605; 83735; 83880; 84134; 84484; 85025; 87797; 93005; 93010; 93307; 94150; 94640; 94762; 96365; 96368; 96375; 97161; 99285; 99291; 99292; C9113; G0480; J0360; J0696; J1650; J1940; J2060; J2270; J2310; Q9967

== ENCOUNTER 2023-08-03 09:45 | Emergency (ER) | payer MEDICARE, MEDICAID, OTHER, SELFPAY ==
[2022-01-09 02:00] VITALS: PULSE 71; RESP 12; O2SAT 98
[2023-07-12 03:35] VITALS: BMI 32.4
[2023-08-03] VITALS (14 sets, daily range): BP systolic 156–192; BP diastolic 74–93; PULSE 54–71; RESP 10–22; TEMP 37.1; O2SAT 91–96; BMI 33.6
--- NOTE | 2023-08-03 09:54 | DI.RAD.S_ITS ---
PROCEDURE: XR CHEST 1V INDICATIONS: Shortness of breath TECHNIQUE: One view of the chest was acquired. COMPARISON: [facility], CR, XR CHEST 1V, 07/11/2023, 20:35. [facility], CR, XR CHEST 2V, 06/06/2023, 8:50. FINDINGS: Surgical changes and devices: None. Lungs and pleura: Lungs are clear. No pleural effusions or pneumothorax. Mediastinum: Mediastinal contours appear normal. Heart size is normal. Bones and chest wall: No suspicious bony lesions. Overlying soft tissues appear unremarkable. IMPRESSION: No acute cardiopulmonary abnormality is seen. Dictated by: Rafal He M.D. on 08/03/2023 at 10:41 Approved by: Rafal He M.D. on 08/03/2023 at 10:41
[2023-08-03] MEDS: ALBUTEROL/IPRATROPIUM 3 ML AMPUL INH (10:30)
[2023-08-03 10:40] LABS: Add Manual Diff / Slide Review NO; Basophils Absolute Auto 200 /uL (0-100); Basophils Percent Auto 2.3 % (0-2); Eosinophils Absolute Auto 500 /uL (0-450); Eosinophils Percent Auto 7.3 % (2-4); Hematocrit 40.2 % (41-53); Hemoglobin 13.4 g/dL (13.5-17.5); Lymphocytes Absolute Auto 500 /uL (1100-4500); Lymphocytes Percent Auto 7.4 % (25-40); Mean Corpuscular HGB Conc 33.3 % (30-36); Mean Corpuscular Hemoglobin 28.3 PG (26-34); Mean Corpuscular Volume 84.9 fL (80-100); Monocytes Absolute Auto 500 /uL (0-900); Monocytes Percent Auto 6.1 % (3-14); Neutrophils Absolute Auto 5700 /uL (1500-7000); Neutrophils Percent Auto 76.9 % (50-75); Platelet Count 260 X10^3/uL (150-400); Red Blood Cell Count 4.73 X10^6/uL (4.5-5.9); Red Cell Distribution Width 14.1 % (11.6-14.8); White Blood Cell Count 7.4 X10^3/uL (4.5-11.0)
[2023-08-03 10:46] LABS: Prothrombin Time 11.8 SECONDS (9.4-12.5)
--- NOTE | 2023-08-03 10:50 | PC.NURSE ---
This RN attempted 3 IV sticks. One in bilateral AC and once in Rt hand without success. This RN informed charge nurse and provider. Called lab in order to get needed blood samples.
[2023-08-03 10:51] LABS: Alanine Aminotransferase 22 IU/L (<50); Albumin 4.3 g/dL (3.5-5.0); Albumin Globulin Ratio 1.2 (1.0-2.8); Alkaline Phosphatase 106 U/L (38-126); Aspartate Aminotransferase 49 IU/L (17-59); Bilirubin Total 0.7 mg/dL (0.2-1.3); Blood Urea Nitrogen 16 mg/dL (9-20); Calcium 9.2 mg/dL (8.4-10.2); Carbon Dioxide 29 mmol/L (22-32); Chloride 105 mmol/L (98-107); Estimated Glomerular Filt Rate > 60 mL/min (>60); Globulin 3.6 g/dL (1.7-4.1); Glucose 100 mg/dL (80-110); HEMOLYSIS < 15 (0-50); Lactate (Lactic Acid) 0.9 mmol/L (0.7-2.1); Potassium 3.8 mmol/L (3.4-5.1); Sodium 139 mmol/L (137-145); Total Protein 7.9 g/dL (6.3-8.2)
--- NOTE | 2023-08-03 10:54 | ED.SOB ---
HPI - SOB/Dyspnea General Chief Complaint: Shortness of Breath/Dyspnea Stated Complaint: SOB Time Seen by Provider: 08/03/23 10:29 Source: patient Mode of arrival: Ambulatory Limitations: no limitations History of Present Illness HPI Narrative: Patient here for dyspnea. History asthma. Started symptoms last night. Spring weather changes has not helped his asthma. His home breathing treatments have not helped him. Audible wheezing on arrival. Respiratory therapist at bedside with DuoNeb treatment. Patient is starting feel better. He states does not feel like his CHF, has not had noticeable weight gain or peripheral limb edema. No chest pain has been coughing a lot and upper abdominal muscles hurt when coughing or palpated. No fever chills. No nausea or vomiting. No known sick contacts. Related Data Home Medications Medication Instructions Recorded Confirmed acetaminophen 500 mg tablet 1,000 mg PO Q6H PRN Pain (Scale 11/21/18 07/12/23 Score 1-3) albuterol sulfate 2.5 mg/3 mL 2.5 mg inhalation 3XW 08/16/22 07/12/23 (0.083 %) solution for nebulization albuterol sulfate 90 mcg/actuation 2 inh inhalation DAILY 08/16/22 07/12/23 aerosol inhaler (Ventolin HFA) citalopram 20 mg tablet 20 mg PO DAILY 08/16/22 07/12/23 methadone 10 mg tablet 70 mg PO DAILY 07/12/23 07/12/23 Previous Rx's Medication Instructions Recorded carvedilol 25 mg tablet 25 mg PO BID #60 tabs 01/11/22 amlodipine 5 mg tablet 5 mg PO BID #30 tabs 07/22/22 oxycodone 5 mg tablet 5 mg PO Q8H PRN pain #14 tabs 07/14/23 albuterol sulfate 90 mcg/actuation 2 inhalation inhalation QID PRN 08/03/23 aerosol inhaler (Ventolin HFA) shortness of breath or wheezing #6.7 grams benzonatate 100 mg capsule 100 mg PO TID PRN cough #20 caps 08/03/23 methylprednisolone 4 mg tablets in See Rx Instructions PO .COMPLEX 08/03/23 a dose pack (Medrol (Nima)) #21 ea Allergies Allergy/AdvReac Type Severity Reaction Status Date / Time NSAIDS (Non-Steroidal Allergy Severe Swelling Verified 08/03/23 09:54 Anti-Inflamma of Lip/Tongue/Throat Penicillins [PENICILLINS] Allergy Severe Swelling Verified 08/03/23 09:54 of Lip/Tongue/Throat chocolate flavor Allergy Intermediate Swelling Verified 08/03/23 09:54 of Lip/Tongue/Throat peanut Allergy Intermediate Swelling Verified 08/03/23 09:54 of Lip/Tongue/Throat strawberry Allergy Intermediate Swelling Verified 08/03/23 09:54 of Lip/Tongue/Throat celecoxib [From CELEBREX] Allergy Unknown Verified 08/03/23 09:54 lisinopril [LISINOPRIL] Allergy Unknown Verified 08/03/23 09:54 meloxicam [MELOXICAM] Allergy Unknown ANAPHYLAXSI Verified 08/03/23 09:54 S avocado AdvReac Intermediate Swelling Verified 08/03/23 09:54 of Lip/Tongue/Throat peas AdvReac Intermediate Swelling Verified 08/03/23 09:54 of Lip/Tongue/Throat sulfite AdvReac Intermediate Migraine Verified 08/03/23 09:54 Review of Systems Review of Systems Narrative: GENERAL: negative chills, fatigue, malaise, fever, sweats. HEENT: negative sinus pain, ear pain, sore throat RESPIRATORY: Positive dyspnea, cough CARDIOVASCULAR: negative chest pain, palpitations GASTROINTESTINAL: negative nausea, vomiting, abdominal pain : negative dysuria, frequency, hematuria MUSCULOSKELETAL: negative muscle or bony pain SKIN: negative rash, skin lesions NEUROLOGIC: negative weakness, numbness ROS Unobtainable: All systems reviewed & are unremarkable except as noted in HPI and below Patient History Medical History Chronic neck and back pain Systolic congestive 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, NYHA class 1 Left hemiparesis Stroke Right rib fracture Coronary artery disease Hypertension Surgical History History of cholecystectomy Hx of fusion of cervical spine History of surgery on wrist History of shoulder surgery History of laparotomy Family History Father Parkinsons Mother Cancer Brother Cancer Sister No significant medical problems Social History household members: spouse Smoking Status: Former smoker alcohol intake: former substance use type: does not use Smoking Status: Former smoker tobacco type: cigarettes alcohol intake frequency: holidays/special occasions only Substance Use Type: marijuana, opiates and other Exam Narrative Exam Narrative: GENERAL: in no distress, not toxic not dyspneic HEAD: Normocephalic. EYES: Pupils equal round ENT: Mucous membranes moist. NECK: Trachea midline. CARDIOVASCULAR: Regular rate and rhythm RESPIRATORY: Speaking near full sentences however bilateral diffuse wheezing and rhonchi without rales GASTROINTESTINAL: Abdomen soft, non-tender EXTREMITIES: No gross deformities. 1+ bilateral ankle edema BACK: No flank tenderness. NEURO: AOx4. SKIN: Warm and dry PSYCH: Not anxious, is cooperative Initial Vital Signs Initial Vital Signs: Vital Signs Temperature 98.8 F 08/03/23 09:47 Pulse Rate 66 08/03/23 09:47 Respiratory Rate 18 08/03/23 09:47 Blood Pressure 192/88 H 08/03/23 09:47 Pulse Oximetry 92 08/03/23 09:47 Oxygen Delivery Method Room Air 08/03/23 09:47 Course Orders Ordered: Discontinued Medications Hydrocodone Bitart/Acetaminophen (Hydrocodone/Acet 5/325 Tablet) 1 tab PO NOW ONE Stop: 08/03/23 12:12 Last Admin: 08/03/23 12:16 Dose: 1 tab Documented By: SANDIP Albuterol (Albuterol 2.5 Mg/3 Ml Neb (Adult)) 2.5 mg INH [id number] PRN PRN Reason: Shortness Of Breath Last Admin: 08/03/23 12:08 Dose: 2.5 mg Documented By: SAT Albuterol/Ipratropium (Albuterol/Ipratropium 3 Ml Ampul) 3 ml INH NOW ONE Stop: 08/03/23 10:17 Last Admin: 08/03/23 10:30 Dose: 3 ml Documented By: SAT Methylprednisolone (Methylprednisolone 125 Mg/2 Ml Vial) 125 mg IV NOW ONE Stop: 08/03/23 10:54 Last Admin: 08/03/23 12:02 Dose: 125 mg Documented By: SANDIP Vital Signs Vital signs: Vital Signs - 8 hr 08/03/23 09:47 08/03/23 09:51 08/03/23 09:52 Temperature 98.8 F Pulse Rate 66 68 Respiratory Rate 18 Blood Pressure 192/88 H 192/88 H Pulse Oximetry 92 92 Oxygen Delivery Method Room Air 08/03/23 09:52 08/03/23 10:03 08/03/23 10:05 Temperature Pulse Rate 67 57 L 57 L Respiratory Rate Blood Pressure 156/75 H Pulse Oximetry 91 Oxygen Delivery Method 08/03/23 10:05 08/03/23 10:30 08/03/23 10:34 Temperature Pulse Rate 58 L 55 L 55 L Respiratory Rate 10 L 14 18 Blood Pressure Pulse Oximetry 94 95 93 Oxygen Delivery Method Room Air 08/03/23 11:00 08/03/23 11:30 08/03/23 11:30 Temperature Pulse Rate 54 L 55 L Respiratory Rate 19 22 Blood Pressure 173/89 H Pulse Oximetry 95 93 Oxygen Delivery Method Room Air 08/03/23 12:00 08/03/23 12:00 08/03/23 12:28 Temperature Pulse Rate 57 L 71 Respiratory Rate 18 Blood Pressure 182/93 H Pulse Oximetry 93 91 Oxygen Delivery Method Room Air MDM - SOB/Dyspnea Lab Data 08/03/23 10:30 08/03/23 10:30 Labs: Lab Results 08/03/23 08/03/23 08/03/23 Range/Units 10:30 10:58 11:05 WBC 7.4 (4.5-11.0) X10^3/uL RBC 4.73 (4.5-5.9) X10^6/uL Hgb 13.4 L (13.5-17.5) g/dL Hct 40.2 L (41-53) % MCV 84.9 (80-100) fL MCH 28.3 (26-34) PG MCHC 33.3 (30-36) % RDW 14.1 (11.6-14.8) % Plt Count 260 (150-400) X10^3/uL Neut % (Auto) 76.9 H (50-75) % Lymph % (Auto) 7.4 L (25-40) % [place] % (Auto) 6.1 (3-14) % Eos % (Auto) 7.3 H (2-4) % Baso % (Auto) 2.3 H (0-2) % Neut # (Auto) 5700 (1337-8019) /uL Lymph # (Auto) 500 L (8188-9310) /uL [place] # (Auto) 500 (0-900) /uL Eos # (Auto) 500 H (0-450) /uL Baso # (Auto) 200 H (0-100) /uL PT 11.8 (9.4-12.5) SECONDS INR 1.0 (0.9-1.3) VBG pH 7.37 (7.33-7.43) VBG pCO2 54.4 H (45-50) mmHg VBG pO2 32 L (35-45) mmHg VBG HCO3 31 H (24-28) mmol/L VBG Total CO2 33 H (24-29) mmol/L VBG O2 Saturation 58 L (70-75) % VBG Base Excess 6.0 H (0-4) mmol/L FiO2 21 Sodium 139 (137-145) mmol/L Potassium 3.8 (3.4-5.1) mmol/L Chloride 105 (98-107) mmol/L Carbon Dioxide 29 (22-32) mmol/L BUN 16 (9-20) mg/dL Creatinine 0.89 (0.66-1.25) mg/dL Estimated GFR > 60 (>60) mL/min BUN/Creatinine Ratio 18.0 (6-22) Glucose 100 (80-110) mg/dL Lactate 0.9 (0.7-2.1) mmol/L Calcium 9.2 (8.4-10.2) mg/dL Total Bilirubin 0.7 (0.2-1.3) mg/dL AST 49 (17-59) IU/L ALT 22 (<50) IU/L Alkaline Phosphatase 106 (38-126) U/L Troponin I < 0.012 (0.01-0.034) ng/mL NT-Pro-B Natriuret Pep 821 H (<125) pg/mL Total Protein 7.9 (6.3-8.2) g/dL Albumin 4.3 (3.5-5.0) g/dL Globulin 3.6 (1.7-4.1) g/dL Albumin/Globulin Ratio 1.2 (1.0-2.8) Chlamy pneumoniae PCR Not detected (Not Detect) Adenovirus (PCR) Not detected (Not Detect) B.parapertussis DNA PCR Not detected (Not Detecte) Coronavirus OC43 (PCR) Not detected (Not Detect) Coronavirus HKU1 (PCR) Not detected (Not Detect) Coronavirus 229E (PCR) Not detected (Not Detect) SARS-CoV-2 (PCR) Not detected (Not Detecte) Coronavirus NL63 (PCR) Not detected (Not Detect) Human Metapneumovir PCR Not detected (Not Detect) Influenza Type A (PCR) Not detected (Not Detect) Influenza Type B (PCR) Not detected (Not Detect) M. pneumoniae (PCR) Not detected (Not Detect) Parainfluenza 1 (PCR) Not detected (Not Detect) Parainfluenza 2 (PCR) Not detected (Not Detect) Parainfluenza 3 (PCR) Not detected (Not Detect) Parainfluenza 4 (PCR) Not detected (Not Detect) RSV (PCR) Not detected (Not Detect) Entero/Rhino (PCR) Not detected (Not Detect) 08/03/23 Range/Units 11:50 WBC (4.5-11.0) X10^3/uL RBC (4.5-5.9) X10^6/uL Hgb (13.5-17.5) g/dL Hct (41-53) % MCV (80-100) fL MCH (26-34) PG MCHC (30-36) % RDW (11.6-14.8) % Plt Count (150-400) X10^3/uL Neut % (Auto) (50-75) % Lymph % (Auto) (25-40) % [place] % (Auto) (3-14) % Eos % (Auto) (2-4) % Baso % (Auto) (0-2) % Neut # (Auto) (5544-8231) /uL Lymph # (Auto) (2547-7030) /uL [place] # (Auto) (0-900) /uL Eos # (Auto) (0-450) /uL Baso # (Auto) (0-100) /uL PT (9.4-12.5) SECONDS INR (0.9-1.3) VBG pH 7.38 (7.33-7.43) VBG pCO2 53.3 H (45-50) mmHg VBG pO2 38 (35-45) mmHg VBG HCO3 31 H (24-28) mmol/L VBG Total CO2 33 H (24-29) mmol/L VBG O2 Saturation 69 L (70-75) % VBG Base Excess 6.0 H (0-4) mmol/L FiO2 21 Sodium (137-145) mmol/L Potassium (3.4-5.1) mmol/L Chloride (98-107) mmol/L Carbon Dioxide (22-32) mmol/L BUN (9-20) mg/dL Creatinine (0.66-1.25) mg/dL Estimated GFR (>60) mL/min BUN/Creatinine Ratio (6-22) Glucose (80-110) mg/dL Lactate (0.7-2.1) mmol/L Calcium (8.4-10.2) mg/dL Total Bilirubin (0.2-1.3) mg/dL AST (17-59) IU/L ALT (<50) IU/L Alkaline Phosphatase (38-126) U/L Troponin I (0.01-0.034) ng/mL NT-Pro-B Natriuret Pep (<125) pg/mL Total Protein (6.3-8.2) g/dL Albumin (3.5-5.0) g/dL Globulin (1.7-4.1) g/dL Albumin/Globulin Ratio (1.0-2.8) Chlamy pneumoniae PCR (Not Detect) Adenovirus (PCR) (Not Detect) B.parapertussis DNA PCR (Not Detecte) Coronavirus OC43 (PCR) (Not Detect) Coronavirus HKU1 (PCR) (Not Detect) Coronavirus 229E (PCR) (Not Detect) SARS-CoV-2 (PCR) (Not Detecte) Coronavirus NL63 (PCR) (Not Detect) Human Metapneumovir PCR (Not Detect) Influenza Type A (PCR) (Not Detect) Influenza Type B (PCR) (Not Detect) M. pneumoniae (PCR) (Not Detect) Parainfluenza 1 (PCR) (Not Detect) Parainfluenza 2 (PCR) (Not Detect) Parainfluenza 3 (PCR) (Not Detect) Parainfluenza 4 (PCR) (Not Detect) RSV (PCR) (Not Detect) Entero/Rhino (PCR) (Not Detect) Imaging Data Chest x-ray: Radiologist's Impression: [address] [address] XRay Report Signed Patient: Octaviano Jj Jr MR#: [id number] : 1955 Acct:[id number] Age/Sex: 68 / M Date of Service: 08/03/23 Loc: ED Accession Number: [id number] Procedure: XR chest 1V Ordering Provider: Shankar Banegas MD PROCEDURE: XR CHEST 1V INDICATIONS: Shortness of breath TECHNIQUE: One view of the chest was acquired. COMPARISON: [facility], CR, XR CHEST 1V, 07/11/2023, 20:35. [facility], CR, XR CHEST 2V, 06/06/2023, 8:50. FINDINGS: Surgical changes and devices: None. Lungs and pleura: Lungs are clear. No pleural effusions or pneumothorax. Mediastinum: Mediastinal contours appear normal. Heart size is normal. Bones and chest wall: No suspicious bony lesions. Overlying soft tissues appear unremarkable. IMPRESSION: No acute cardiopulmonary abnormality is seen. Dictated by: Rafal He M.D. on 08/03/2023 at 10:41 Approved by: Rafal He M.D. on 08/03/2023 at 10:41 [facility] Narrative Medical decision making narrative: Patient here for dyspnea. History asthma. Started symptoms last night. Spring weather changes has not helped his asthma. His home breathing treatments have not helped him. Audible wheezing on arrival. Respiratory therapist at bedside with DuoNeb treatment. Patient is starting feel better. He states does not feel like his CHF, has not had noticeable weight gain or peripheral limb edema. No chest pain has been coughing a lot and upper abdominal muscles hurt when coughing or palpated. No fever chills. No nausea or vomiting. No known sick contacts. After history and exam CBC CMP ABG DuoNeb Solu-Medrol EKG BNP troponin respiratory panel chest x-ray [facility] Medical records reviewed: Recent visit last month for rib fractures Differential considered: Includes but not limited to COPD asthma CHF exacerbation Lab Test results independently reviewed as above. Pertinent findings: WBC 7.4 hemoglobin 13.4 VBG 7.38 CO2 53 PO2 38 sodium 139 potassium 3.8 BUN 16 creatinine 0.89 GFR greater than 60 troponin less than 0.012, BNP 821 Respiratory panel negative Independently reviewed EKG sinus bradycardia rate [address] elevation or depression Imaging studies independently reviewed: Chest x-ray no acute finding Consultations: None indicated at this time Treatments: DuoNeb Solu-Medrol Re-evaluations: 1:00 p.m.. Patient feeling better after breathing treatments and Solu-Medrol. Pain medication given for the stress on the abdominal wall from coughing and also has known rib fractures. Incentive spirometry has been used as well. He is feeling better. 91% room air when walking and speaking full sentences. 97% room air when at rest. No distress at all. Return precautions reviewed with him he does understand likely seasonal allergies causing his asthma exacerbation. Return precautions reviewed with him. He desires discharge home. Discussion: Appropriate for discharge home exam and laboratory studies otherwise reassuring. Likely spring weather triggering his asthma. Feeling much better after breathing treatments. He states the inhaler that he was given is broken. I have prescribed a new 1. Steroid started and steroid pack to continue tomorrow. Return precautions reviewed. Feeling much better at time of discharge. Not requiring supplemental oxygen. He desires discharge home. 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 Use 2 puffs every 4 hours as needed for asthma. Steroid was given today and you may continue the steroid pack tomorrow. No driving operating machinery today as you received pain medication. See family doctor next week for re-evaluation. Return if worse if any questions or concerns. It is likely the spring has triggered your asthma. Prescriptions: New methylprednisolone [Medrol (Nima)] 4 mg tablets,dose pack See Rx Instructions .ROUTE .COMPLEX Qty: 21 0RF Rx Instructions: orally per package directions albuterol sulfate [Ventolin HFA] 90 mcg/actuation HFA aerosol inhaler 2 inhalation INHALATION QID PRN (Reason: shortness of breath or wheezing) Qty: 6.7 0RF benzonatate 100 mg capsule 100 mg PO TID PRN (Reason: cough) Qty: 20 0RF No Action carvedilol 25 mg tablet 25 mg PO BID Qty: 60 0RF Rx Instructions: must administer with a meal/food amlodipine 5 mg tablet 5 mg PO BID Qty: 30 0RF acetaminophen 500 mg Tablet 1,000 mg PO Q6H PRN (Reason: Pain (Scale Score 1-3)) citalopram 20 mg tablet 20 mg PO DAILY albuterol sulfate 2.5 mg /3 mL (0.083 %) solution for nebulization 2.5 mg inhalation 3XW albuterol sulfate [Ventolin HFA] 90 mcg/actuation HFA aerosol inhaler 2 inh INHALATION DAILY methadone 10 mg Tablet 70 mg PO DAILY oxycodone 5 mg tablet 5 mg PO Q8H PRN (Reason: pain) Qty: 14 0RF Referrals: Pat Pisano ARNP [Primary Care Provider] - Stand Alone Forms: Patient Portal/API
[2023-08-03 11:03] LABS: NT-proBNP (BNP-Adult 18+) 821 pg/mL (<125); Troponin I < 0.012 ng/mL (0.01-0.034)
[2023-08-03 11:22] LABS: HCO3 VBG 31 mmol/L (24-28); PCO2 VBG 54.4 mmHg (45-50); PO2 VBG 32 mmHg (35-45); Total CO2 VBG 33 mmol/L (24-29); pH VBG 7.37 (7.33-7.43)
[2023-08-03 11:23] LABS: Fractionated Inspired Oxygen 21; Oxygen Saturation VBG 58 % (70-75)
[2023-08-03 11:51] LABS: Adenovirus Not Detected (Not Detect); B. parapertussis Not Detected (Not Detecte); Bordetella pertussis Not Detected (Not Detect); Chlamydophila pneumoniae Not Detected (Not Detect); Coronavirus 229E Not Detected (Not Detect); Coronavirus HKU1 Not Detected (Not Detect); Coronavirus NL 63 Not Detected (Not Detect); Coronavirus OC43 Not Detected (Not Detect); Human Metapneumovirus Not Detected (Not Detect); Human Rhinovirus/Enterovirus Not Detected (Not Detect); Influenza A Not Detected (Not Detect); Influenza B Not Detected (Not Detect); Mycoplasma pneumoniae Not Detected (Not Detect); Parainfluenza Virus 1 Not Detected (Not Detect); Parainfluenza Virus 2 Not Detected (Not Detect); Parainfluenza Virus 3 Not Detected (Not Detect); Parainfluenza Virus 4 Not Detected (Not Detect); Respiratory Syncytial Virus Not Detected (Not Detect); SARS- CoV-2 Not Detected (Not Detecte)
[2023-08-03] MEDS: methylPREDNISolone 125 MG/2 ML VIAL IV (12:02)
[2023-08-03] MEDS: ALBUTEROL 2.5 MG/3 ML NEB (ADULT) INH (12:08)
[2023-08-03] MEDS: HYDROCODONE/ACET 5/325 TABLET 1 TAB PO (12:16)
[2023-08-03 12:30] LABS: HCO3 VBG 31 mmol/L (24-28); PCO2 VBG 53.3 mmHg (45-50); PO2 VBG 38 mmHg (35-45); Total CO2 VBG 33 mmol/L (24-29); pH VBG 7.38 (7.33-7.43)
[2023-08-03 12:31] LABS: Fractionated Inspired Oxygen 21; Oxygen Saturation VBG 69 % (70-75)
== END 2023-08-03 13:13 | disposition home or self-care (01) ==
PROVIDERS: Emergency Provider Emergency Medicine; Family Provider Family Medicine; PCP Nurse Practitioner Family
DX: J45.901 Unspecified asthma with (acute) exacerbation (principal); Z20.822 Contact with and (suspected) exposure to COVID-19
CPT/HCPCS: 36415; 71045; 80053; 82805; 83605; 83880; 84484; 85025; 85610; 87633; 93005; 93010; 94640; 96374; 99284; J2919; J7613

== ENCOUNTER 2023-08-12 10:01 | Emergency (ER) | payer MEDICARE, MEDICAID, OTHER, SELFPAY ==
[2022-01-09 02:00] VITALS: PULSE 71; RESP 12; O2SAT 98
[2023-07-12 03:35] VITALS: BMI 32.4
[2023-08-12 10:03] VITALS: BP 170/83; PULSE 55; RESP 15; TEMP 36.3; O2SAT 95; BMI 34.0
--- NOTE | 2023-08-12 11:10 | DI.RAD.S_ITS ---
PROCEDURE: XR HIP W PEL IF DONE RT 2V INDICATIONS: rt hip pain TECHNIQUE: AP pelvis with lateral view(s) of the right hip(s). COMPARISON: None. FINDINGS: Bones: No fractures or dislocations. Severe degenerative arthritis of the right hip with prominent osteophytes and severe joint space loss. Moderate degenerative arthritis of the left hip. Pelvic ring appears intact. No suspicious bony lesions. Soft tissues: The visualized bowel gas pattern is normal. No suspicious soft tissue calcifications. IMPRESSION: Bilateral hip degenerative arthritis, right greater than left. Right is severe. Dictated by: Vinay Ewing M.D. on 08/12/2023 at 11:42 Approved by: Vinay Ewing M.D. on 08/12/2023 at 11:44
--- NOTE | 2023-08-12 11:13 | ED.LOWEXIN ---
HPI - Extremity Injury (Lower) <Bebe Rankin PA-C - Last Filed: 08/12/23 19:45> General Chief Complaint: Extremity Injury, Lower Stated Complaint: Right hip pain Time Seen by Provider: 08/12/23 10:55 Source: patient Mode of arrival: Ambulatory History of Present Illness HPI Narrative: 68 yo male with chronic conditions of CHF and opiate use disorder under care of [facility] presenting for evaluation of right hip pain x 3 days. He denies any fall in the last several days, but does report that he tripped and aggravated his right hip. He states it has become difficult to walk or sit for too long. He states he has been using a pillow at night between his knees which does relieve his pain somewhat. States the pain seems worse in the outer edge of his right groin. He reports that he was standing and talking to a nurse when he felt a sharp in his right groin. He denies any abdominal pain or pain in his testicles. He denies any change shows urination, and states he has had urinary frequency for some time prior to this incident. He reports that internal and external rotation and flexing his right hip up seemed to cause worse pain. He endorses some numbness over the anterior lateral aspect of his right thigh and hip. He denies falling or any recent falls, denies fevers or anticoagulant use. Related Data Home Medications Medication Instructions Recorded Confirmed acetaminophen 500 mg tablet 1,000 mg PO Q6H PRN Pain (Scale 11/21/18 07/12/23 Score 1-3) albuterol sulfate 2.5 mg/3 mL 2.5 mg inhalation 3XW 08/16/22 07/12/23 (0.083 %) solution for nebulization albuterol sulfate 90 mcg/actuation 2 inh inhalation DAILY 08/16/22 07/12/23 aerosol inhaler (Ventolin HFA) citalopram 20 mg tablet 20 mg PO DAILY 08/16/22 07/12/23 methadone 10 mg tablet 70 mg PO DAILY 07/12/23 07/12/23 Previous Rx's Medication Instructions Recorded carvedilol 25 mg tablet 25 mg PO BID #60 tabs 01/11/22 amlodipine 5 mg tablet 5 mg PO BID #30 tabs 07/22/22 oxycodone 5 mg tablet 5 mg PO Q8H PRN pain #14 tabs 07/14/23 albuterol sulfate 90 mcg/actuation 2 inhalation inhalation QID PRN 08/03/23 aerosol inhaler (Ventolin HFA) shortness of breath or wheezing #6.7 grams benzonatate 100 mg capsule 100 mg PO TID PRN cough #20 caps 08/03/23 methylprednisolone 4 mg tablets in See Rx Instructions PO .COMPLEX 08/03/23 a dose pack (Medrol (Nima)) #21 ea Allergies Allergy/AdvReac Type Severity Reaction Status Date / Time NSAIDS (Non-Steroidal Allergy Severe Swelling Verified 08/12/23 10:10 Anti-Inflamma of Lip/Tongue/Throat Penicillins [PENICILLINS] Allergy Severe Swelling Verified 08/12/23 10:10 of Lip/Tongue/Throat chocolate flavor Allergy Intermediate Swelling Verified 08/12/23 10:10 of Lip/Tongue/Throat peanut Allergy Intermediate Swelling Verified 08/12/23 10:10 of Lip/Tongue/Throat strawberry Allergy Intermediate Swelling Verified 08/12/23 10:10 of Lip/Tongue/Throat celecoxib [From CELEBREX] Allergy Unknown Verified 08/12/23 10:10 lisinopril [LISINOPRIL] Allergy Unknown Verified 08/12/23 10:10 meloxicam [MELOXICAM] Allergy Unknown ANAPHYLAXSI Verified 08/12/23 10:10 S avocado AdvReac Intermediate Swelling Verified 08/12/23 10:10 of Lip/Tongue/Throat peas AdvReac Intermediate Swelling Verified 08/12/23 10:10 of Lip/Tongue/Throat sulfite AdvReac Intermediate Migraine Verified 08/12/23 10:10 Review of Systems <Bebe Rankin PA-C - Last Filed: 08/12/23 19:45> Review of Systems Narrative: See HPI Patient History <Bebe Rankin PA-C - Last Filed: 08/12/23 19:45> Medical History Chronic neck and back pain Systolic congestive 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, NYHA class 1 Left hemiparesis Stroke Right rib fracture Coronary artery disease Hypertension Surgical History History of cholecystectomy Hx of fusion of cervical spine History of surgery on wrist History of shoulder surgery History of laparotomy Family History Father Parkinsons Mother Cancer Brother Cancer Sister No significant medical problems Social History household members: spouse Smoking Status: Former smoker alcohol intake: former substance use type: does not use Smoking Status: Former smoker tobacco type: cigarettes alcohol intake frequency: holidays/special occasions only Substance Use Type: marijuana, opiates and other Exam <Bebe Rankin PA-C - Last Filed: 08/12/23 19:45> Initial Vital Signs Initial Vital Signs: Vital Signs Temperature 97.4 F L 08/12/23 10:03 Pulse Rate 55 L 08/12/23 10:03 Respiratory Rate 15 08/12/23 10:03 Blood Pressure 170/83 H 08/12/23 10:03 Pulse Oximetry 95 08/12/23 10:03 Oxygen Delivery Method Room Air 08/12/23 10:03 GENERAL: 68 year old patient appears stated age. Well-developed patient, in no acute distress. HEAD: Atraumatic. Normocephalic. EYES: Pupils equal round No scleral icterus. No injection or drainage. NECK: Trachea midline, supple RESPIRATORY: Speaking comfortably normal tone of voice without any increased work of breathing. Abdomen: Patient is nontender to palpation of abdomen. EXTREMITIES: Patient demonstrates in 5/5 strength with knee flexion and extension bilaterally as well as hip flexion extension bilaterally. He demonstrates internal and external rotation. He has reported increased pain in the lateral 3rd of his right groin with internal and external rotation and right hip flexion, dorsalis pedis pulses 2+ bilaterally, no pitting edema noted in bilateral lower extremities. BACK: Nontender without deformity or crepitance. NEURO: AOx3. SKIN: No rash or erythema of visible areas <Ember Mcfadden DO - Last Filed: 08/19/23 11:12> Initial Vital Signs Initial Vital Signs: Vital Signs Temperature 97.4 F L 08/12/23 10:03 Pulse Rate 55 L 08/12/23 10:03 Respiratory Rate 15 08/12/23 10:03 Blood Pressure 170/83 H 08/12/23 10:03 Pulse Oximetry 95 08/12/23 10:03 Oxygen Delivery Method Room Air 08/12/23 10:03 Course <Bebe Rankin PA-C - Last Filed: 08/12/23 19:45> Orders Ordered: ED Orders 08/12/23 11:10 XR hip w pel if done RT 2V Stat Vital Signs Vital signs: Vital Signs - 8 hr 08/12/23 12:23 Pulse Rate 60 Respiratory Rate 18 Blood Pressure 169/82 H Pulse Oximetry 99 Oxygen Delivery Method Room Air <Ember Mcfadden DO - Last Filed: 08/19/23 11:12> Orders Ordered: ED Orders 08/12/23 11:10 XR hip w pel if done RT 2V Stat Vital Signs Vital signs: Vital Signs - 8 hr 08/12/23 12:23 Pulse Rate 60 Respiratory Rate 18 Blood Pressure 169/82 H Pulse Oximetry 99 Oxygen Delivery Method Room Air MDM - Extremity Injury (Lower) <Bebe Rankin PA-C - Last Filed: 08/12/23 19:45> Imaging Data X-ray right hip: Radiologist's Impression: PROCEDURE: XR HIP W PEL IF DONE RT 2V INDICATIONS: rt hip pain TECHNIQUE: AP pelvis with lateral view(s) of the right hip(s). COMPARISON: None. FINDINGS: Bones: No fractures or dislocations. Severe degenerative arthritis of the right hip with prominent osteophytes and severe joint space loss. Moderate degenerative arthritis of the left hip. Pelvic ring appears intact. No suspicious bony lesions. Soft tissues: The visualized bowel gas pattern is normal. No suspicious soft tissue calcifications. IMPRESSION: Bilateral hip degenerative arthritis, right greater than left. Right is severe. Dictated by: Vinay Ewing M.D. on 08/12/2023 at 11:42 Approved by: Vinay Ewing M.D. on 08/12/2023 at 11:[address] [facility] Narrative Medical decision making narrative: Patient is a 68-year-old male presenting for evaluation of right hip pain x3 days after tripping. He denies any fall. He denies any testicular pain or new changes to urination. Physical exam shows 5/5 knee flexion extension strength and intact hip flexion and extension strength. He is receiving methadone from [facility]. He reports that they are working to help him get established with a primary care. Multiple etiologies for patient's symptoms considered including, but not limited to: Right Hip flexor strain, avascular necrosis, osteoarthritis, hernia, kidney stone Last Tylenol 1000mg taken at 7:00 a.m. patient would prefer to wait until discharge home to take further Tylenol. He defers NSAIDs as he states he is allergic. Discussed with patient that x-ray does not show any sign of fracture, but there is presence of significant osteoarthritis which could be contributing to his discomfort. My suspicion for kidney stone or hernia is low as patient is having no pain in his abdomen/genitals, no back pain or changes to urination and his discomfort started with specific incident of tripping. My suspicion is that he has a strain of his right hip flexor. I recommend that he alternate ice and heat, walk and bear weight as tolerated and continue follow up with his primary care. We discussed that he may benefit from receiving physical therapy. He plans to follow up with [facility] for help in connecting him with physical therapy if his symptoms are not improving. Discussed ER return precautions in discharge. Prior Charts reviewed: ER visit 06/05/2023, 07/11/2023, 08/03/2023 Findings and discharge diagnosis discussed with patient/family followed by verbalization of understanding Return precautions discussed with patient/family whom verbalize understanding of diagnosis and plan Discharge Plan Departure Patient Disposition: Home Clinical Impression: Strain of flexor muscle of right hip Qualifiers: Encounter type: initial encounter Qualified Code(s): S76.011A - Strain of muscle, fascia and tendon of right hip, initial encounter Activity Restrictions/Additional Instructions: Thank you for coming in today for your care. You have been diagnosed with likely a strain of your right hip flexor. X-ray imaging did not show any evidence of fracture dislocation. There was evidence of arthritis worsen your right hip than your left. I recommend that you continue follow up with your primary care provider for this. Treatment should include alternating heat and ice as well as application of lidocaine cream as needed. I recommend activity and weight-bearing as tolerated. We discussed treatment for your pain, and you would prefer to take Tylenol at home. Please follow up in the ER if you have weakness in your right leg, severe increase in your pain, burning with urination fever, chills, abdominal pain or other concerning signs or symptoms. *Please follow up with your primary care provider in 2-3 days, call for an appointment. Let them know you were seen in the Emergency Department and that we ask that you be seen in follow up. We will electronically transmit a record of today's note if your PCP is in our system *If you do not have a primary care provider please contact the [facility] Resource line at [phone]. They will ask some questions about your medical history and help get you set up with a doctor in the community. Prescriptions: No Action carvedilol 25 mg tablet 25 mg PO BID Qty: 60 0RF Rx Instructions: must administer with a meal/food amlodipine 5 mg tablet 5 mg PO BID Qty: 30 0RF methylprednisolone [Medrol (Nima)] 4 mg tablets,dose pack See Rx Instructions .ROUTE .COMPLEX Qty: 21 0RF Rx Instructions: orally per package directions albuterol sulfate [Ventolin HFA] 90 mcg/actuation HFA aerosol inhaler 2 inhalation INHALATION QID PRN (Reason: shortness of breath or wheezing) Qty: 6.7 0RF benzonatate 100 mg capsule 100 mg PO TID PRN (Reason: cough) Qty: 20 0RF acetaminophen 500 mg Tablet 1,000 mg PO Q6H PRN (Reason: Pain (Scale Score 1-3)) citalopram 20 mg tablet 20 mg PO DAILY albuterol sulfate 2.5 mg /3 mL (0.083 %) solution for nebulization 2.5 mg inhalation 3XW albuterol sulfate [Ventolin HFA] 90 mcg/actuation HFA aerosol inhaler 2 inh INHALATION DAILY methadone 10 mg Tablet 70 mg PO DAILY oxycodone 5 mg tablet 5 mg PO Q8H PRN (Reason: pain) Qty: 14 0RF Referrals: Pat Pisano ARNP [Primary Care Provider] - Stand Alone Forms: Patient Portal/API ED Sign-out <Ember Mcfadden DO - Last Filed: 08/19/23 11:12> Cosign ED Attending Lio Attestation: I was available for consultation.
[2023-08-12 12:23] VITALS: BP 169/82; PULSE 60; RESP 18; O2SAT 99
== END 2023-08-12 12:50 | disposition home or self-care (01) ==
PROVIDERS: Emergency Provider Physician Assistant; Family Provider Family Medicine; PCP Nurse Practitioner Family
DX: S76.011A Strain of muscle, fascia and tendon of right hip, initial encounter (principal); W18.40XA Slipping, tripping and stumbling without falling, unspecified, initial encounter
CPT/HCPCS: 73502; 99283

== ENCOUNTER 2023-09-02 16:58 | Inpatient (IN) | payer MEDICARE, MEDICAID, OTHER, SELFPAY ==
[2022-01-09 02:00] VITALS: PULSE 71; RESP 12; O2SAT 98
[2023-07-12 03:35] VITALS: BMI 32.4
[2023-09-02] VITALS (71 sets, daily range): BP systolic 109–246; BP diastolic 56–121; PULSE 57–97; RESP 14–52; TEMP 35.7–36.1; O2SAT 91–100; BMI 31.1
--- NOTE | 2023-09-02 17:09 | DI.RAD.S_ITS ---
PROCEDURE: XR CHEST 1V INDICATIONS: suspected sepsis TECHNIQUE: One view of the chest was acquired. COMPARISON: , CR, XR CHEST 1V, 08/03/2023, 10:06. , CR, XR CHEST 1V, 07/11/2023, 20:35. FINDINGS: Surgical changes and devices: Endotracheal tube is seen with tip approximately 3.5 cm above the claudia. Lungs and pleura: Suspected patchy retrocardiac opacities at the left lung base. No pleural effusions or pneumothorax. Mediastinum: Mediastinal contours appear normal. Heart size is normal. Bones and chest wall: No suspicious bony lesions. Overlying soft tissues appear unremarkable. IMPRESSION: 1. Endotracheal tube is seen in satisfactory position. 2. Suspected retrocardiac opacities may be secondary to atelectasis, aspiration, or pneumonia. Approved by: Steve Szymanski M.D. on 09/02/2023 at 17:54
[2023-09-02] MEDS: SUCCINYLCHOLINE 200 MG/10 ML VIAL 150 MG IV (17:10)
--- NOTE | 2023-09-02 17:16 | ED.OVERDOSE ---
HPI - Overdose <Awilda Romero, DO - Last Filed: 09/08/23 10:25> General Chief Complaint: Shortness of Breath/Dyspnea Stated Complaint: OD Time Seen by Provider: 09/02/23 17:14 Source: EMS Mode of arrival: EMS History of Present Illness HPI Narrative: 68-year-old male with sudden onset shortness of breath with chest pain after smoking fentanyl ?blues?. Patient family was present received 8 mg of Narcan from family into an additional with EMS with no improvement in mental status. Patient was tachypneic requiring assisted respirations with BVM, altered mental status. Patient is diaphoretic. Initially gave some one-word answers to medics but not by the time he arrived to the department. Was hypertensive in the field, non-rebreather with BVM 100%. Patient is unable to give any history he does squeeze my hand on command but does not follow any other commands. Has reported cardiac history with multiple allergies to medications. Related Data Home Medications Medication Instructions Recorded Confirmed methadone 10 mg tablet 103 mg PO DAILY 07/12/23 09/05/23 fluticasone propionate 44 44 mcg inhalation BID 09/02/23 09/05/23 mcg/actuation HFA aerosol inhaler albuterol sulfate 2.5 mg/3 mL 2.5 mg inhalation BEDTIME 09/05/23 09/05/23 (0.083 %) solution for nebulization fluticasone furoate 100 1 inh inhalation DAILY 09/05/23 09/05/23 mcg/actuation blister powder for inhalation (Arnuity Ellipta) Previous Rx's Medication Instructions Recorded carvedilol 25 mg tablet 25 mg PO BID #60 tabs 01/11/22 amlodipine 5 mg tablet 5 mg PO BID #30 tabs 07/22/22 albuterol sulfate 90 mcg/actuation 2 inhalation inhalation QID PRN 08/03/23 aerosol inhaler (Ventolin HFA) shortness of breath or wheezing #6.7 grams cefdinir 300 mg capsule 300 mg PO BID 4 days #8 caps 09/06/23 citalopram 10 mg tablet 20 mg (2 x 10 mg) PO DAILY #30 tabs 09/06/23 doxycycline hyclate 100 mg tablet 100 mg PO BID 4 days #8 tabs 09/06/23 prednisone 20 mg tablet 40 mg (2 x 20 mg) PO DAILY 3 days 09/06/23 #6 tabs Allergies Allergy/AdvReac Type Severity Reaction Status Date / Time NSAIDS (Non-Steroidal Allergy Severe Swelling Verified 08/12/23 10:10 Anti-Inflamma of Lip/Tongue/Throat Penicillins [PENICILLINS] Allergy Severe Swelling Verified 09/04/23 12:19 of Lip/Tongue/Throat chocolate flavor Allergy Intermediate Swelling Verified 08/12/23 10:10 of Lip/Tongue/Throat peanut Allergy Intermediate Swelling Verified 08/12/23 10:10 of Lip/Tongue/Throat strawberry Allergy Intermediate Swelling Verified 08/12/23 10:10 of Lip/Tongue/Throat celecoxib [From CELEBREX] Allergy Unknown Verified 08/12/23 10:10 lisinopril [LISINOPRIL] Allergy Unknown Verified 08/12/23 10:10 meloxicam [MELOXICAM] Allergy Unknown ANAPHYLAXSI Verified 08/12/23 10:10 S avocado AdvReac Intermediate Swelling Verified 08/12/23 10:10 of Lip/Tongue/Throat peas AdvReac Intermediate Swelling Verified 08/12/23 10:10 of Lip/Tongue/Throat sulfite AdvReac Intermediate Migraine Verified 08/12/23 10:10 Review of Systems <Awilda Romero DO - Last Filed: 09/08/23 10:25> Review of Systems ROS Unobtainable: Unobtainable due to mental status/LOC Patient History <Awilda Romero DO - Last Filed: 09/08/23 10:25> Medical History Chronic neck and back pain Systolic congestive 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, NYHA class 1 Left hemiparesis Stroke Right rib fracture Coronary artery disease Hypertension Surgical History History of cholecystectomy Hx of fusion of cervical spine History of surgery on wrist History of shoulder surgery History of laparotomy Family History Father Parkinsons Mother Cancer Brother Cancer Sister No significant medical problems Social History household members: spouse Smoking Status: Former smoker alcohol intake: current substance use type: does not use Smoking Status: Former smoker tobacco type: cigarettes alcohol intake frequency: holidays/special occasions only Substance Use Type: marijuana, opiates and other Exam <Awilda Romero DO - Last Filed: 09/08/23 10:25> Narrative Exam Narrative: GEN: Obese male, obtunded, patient appears to be in severe distress. BVM by EMS. Patient does not respond to questions but does squeeze my hand on command. HEENT: Atraumatic, pupils are pinpoint but equal round reactive to light, extraocular movements are intact, nares are clear, there is no conjunctival pallor. Throat is clear without any exudates, erythema, tonsillar enlargement or uvular deviation, no obvious facial droop. HEART: Regular rate and rhythm without murmur, clicks, rubs. Pulses are equal in upper and lower extremities LUNGS:Lungs clear to auscultation, no wheezes, rales, crackles, chest moves symmetrically, no tachypnea. No accessory muscle use. ABD:bowel sounds normal, soft, non-tender, no guarding, rebound, rigidity, no masses noted, no hepatosplenomegaly :No CVA tenderness MSCL: Non-tender, no muscle atrophy NEURO:CN 2-12 intact, sensation normal, GCS Initial Vital Signs Initial Vital Signs: Vital Signs Temperature 96.3 F L 09/02/23 17:00 Pulse Rate 93 H 09/02/23 17:00 Respiratory Rate 50 H 09/02/23 17:00 Blood Pressure 212/104 H 09/02/23 17:00 Pulse Oximetry 99 09/02/23 17:00 Oxygen Delivery Method Ambu Bag 09/02/23 17:00 <Awilda Ceballos MD - Last Filed: 09/02/23 23:06> Initial Vital Signs Initial Vital Signs: Vital Signs Temperature 96.3 F L 09/02/23 17:00 Pulse Rate 93 H 09/02/23 17:00 Respiratory Rate 50 H 09/02/23 17:00 Blood Pressure 212/104 H 09/02/23 17:00 Pulse Oximetry 99 09/02/23 17:00 Oxygen Delivery Method Ambu Bag 09/02/23 17:00 Procedures <Awilda Romero DO - Last Filed: 09/08/23 10:25> Intubation sedative: Etomidate Mg Given: 10 paralytic: Succinylcholine Mg Given: 150 Laryngoscope: Deysi (glidoscope) ET Tube Size: 7.5 ET Tube Uncuffed: Yes Tube Secured Depth (cm): 25 Tube Secured Location: teeth Tube Placement Confirmation: Visualized tube passing through cords, Equal breath sounds bilaterally, No breath sounds over epigastrium, Confirmation by capnometry and Chest Xray Patient Tolerated Procedure: Well Intubation Complications: none Scores <Awilda Romero DO - Last Filed: 09/08/23 10:25> GCS [place] coma scale eye opening: Spontaneous [place] coma scale verbal response: None [place] coma scale motor response: Obey commands (squeezes hand only, does not follow other commands) [place] coma scale total score: 11 <Awilda Ceballos MD - Last Filed: 09/02/23 23:06> GCS [place] coma scale total score: 11 Course <Awilda Romero DO - Last Filed: 09/08/23 10:25> Orders Ordered: Discontinued Medications Acetaminophen (Acetaminophen 325 Mg Tablet) 650 mg PO Q4H PRN PRN Reason: Fever/Mild Pain (1-3) Last Admin: 09/05/23 21:16 Dose: 650 mg Documented By: Admin: 09/05/23 10:21 Dose: 650 mg Documented By: ELIA Albuterol (Albuterol 2.5 Mg/3 Ml Neb (Adult)) 2.5 mg INH [id number] PRN PRN Reason: Dyspnea Last Admin: 09/04/23 09:04 Dose: 2.5 mg Documented By: Admin: 09/03/23 23:07 Dose: 2.5 mg Documented By: Admin: 09/03/23 12:55 Dose: 2.5 mg Documented By: Admin: 09/03/23 04:20 Dose: 2.5 mg Documented By: ECTOR Albuterol (Albuterol 2.5 Mg/3 Ml Neb (Adult)) 2.5 mg INH [id number] PRN PRN Reason: Wheezing Albuterol/Ipratropium (Albuterol/Ipratropium 3 Ml Ampul) 3 ml INH [id number] CHRISTIANE Last Admin: 09/04/23 06:12 Dose: 3 ml Documented By: Admin: 09/04/23 02:10 Dose: 3 ml Documented By: Admin: 09/03/23 22:01 Dose: 3 ml Documented By: Admin: 09/03/23 19:06 Dose: 3 ml Documented By: Admin: 09/03/23 16:25 Dose: 3 ml Documented By: Admin: 09/03/23 09:36 Dose: 3 ml Documented By: DILLAN Albuterol/Ipratropium (Albuterol/Ipratropium 3 Ml Ampul) 3 ml INH [id number] [facility] Last Admin: 09/06/23 08:27 Dose: 3 ml Documented By: Admin: 09/06/23 06:50 Dose: Not Given Documented By: Admin: 09/05/23 18:03 Dose: 3 ml Documented By: Admin: 09/05/23 15:20 Dose: 3 ml Documented By: Admin: 09/05/23 11:11 Dose: 3 ml Documented By: DILLAN(2) Admin: 09/05/23 07:10 Dose: 3 ml Documented By: Admin: 09/05/23 03:09 Dose: Not Given Documented By: Admin: 09/04/23 19:01 Dose: 3 ml Documented By: Admin: 09/04/23 15:50 Dose: 3 ml Documented By: Admin: 09/04/23 11:43 Dose: 3 ml Documented By: DILLAN Amlodipine Besylate (Amlodipine 5 Mg Tablet) 5 mg PO BID [facility] Last Admin: 09/03/23 10:16 Dose: Not Given Documented By: Admin: 09/02/23 22:01 Dose: 5 mg Documented By: Amlodipine Besylate (Amlodipine 5 Mg Tablet) 10 mg PO BEDTIME [facility] Last Admin: 09/05/23 20:07 Dose: 10 mg Documented By: Admin: 09/04/23 20:39 Dose: 10 mg Documented By: Admin: 09/03/23 20:15 Dose: 10 mg Documented By: Carvedilol (Carvedilol 12.5 Mg Tablet) 25 mg PO BID [facility] Last Admin: 09/03/23 10:16 Dose: Not Given Documented By: Admin: 09/02/23 22:01 Dose: 25 mg Documented By: MS Carvedilol (Carvedilol 12.5 Mg Tablet) 12.5 mg PO BID [facility] Last Admin: 09/06/23 08:31 Dose: 12.5 mg Documented By: Admin: 09/05/23 20:07 Dose: 12.5 mg Documented By: Admin: 09/05/23 08:12 Dose: 12.5 mg Documented By: Admin: 09/04/23 20:39 Dose: 12.5 mg Documented By: Admin: 09/04/23 08:03 Dose: 12.5 mg Documented By: Admin: 09/03/23 20:16 Dose: 12.5 mg Documented By: MS Chlorhexidine Gluconate (Chlorhexidine Gluconate 15 Ml Cup) 15 ml PO Q6HR [facility] Last Admin: 09/04/23 05:26 Dose: 15 ml Documented By: Admin: 09/03/23 23:28 Dose: 15 ml Documented By: Admin: 09/03/23 17:54 Dose: 15 ml Documented By: Admin: 09/03/23 13:03 Dose: 15 ml Documented By: Admin: 09/03/23 06:08 Dose: 15 ml Documented By: Admin: 09/02/23 23:12 Dose: 15 ml Documented By: MS Citalopram Hydrobromide (Citalopram 10 Mg Tablet) 20 mg PO DAILY [facility] Last Admin: 09/06/23 08:30 Dose: 20 mg Documented By: Admin: 09/05/23 08:12 Dose: 20 mg Documented By: Admin: 09/04/23 08:03 Dose: 20 mg Documented By: Admin: 09/03/23 08:48 Dose: 20 mg Documented By: TB Doxycycline Hyclate (Doxycycline Hyclate 100 Mg Tablet) 100 mg PO BID [facility] Last Admin: 09/06/23 08:30 Dose: 100 mg Documented By: Admin: 09/05/23 20:07 Dose: 100 mg Documented By: Enoxaparin Sodium (Enoxaparin 40 Mg/0.4 Ml Syringe) 40 mg SUBCUT DAILY [facility] Last Admin: 09/06/23 08:30 Dose: 40 mg Documented By: Admin: 09/05/23 08:12 Dose: 40 mg Documented By: Admin: 09/04/23 08:03 Dose: 40 mg Documented By: Admin: 09/03/23 08:48 Dose: 40 mg Documented By: FOSTER Enoxaparin Sodium (Enoxaparin 40 Mg/0.4 Ml Syringe) 40 mg SUBCUT DAILY CHRISTIANE Etomidate (Etomidate 2 Mg/Ml 10 Ml Vial) 10 mg IV NOW ONE Stop: 09/02/23 17:11 Last Admin: 09/02/23 17:18 Dose: 10 mg Documented By: MIGUEL A Fentanyl (Fentanyl 100 Mcg/2 Ml Inj) 50 mcg IV Q15MIN PRN PRN Reason: Pain, Moderate (4-6) Last Admin: 09/02/23 17:38 Dose: 50 mcg Documented By: MIGUEL A Admin: 09/02/23 17:19 Dose: 50 mcg Documented By: MIGUEL A Furosemide (Furosemide 40 Mg/4 Ml Vial) 40 mg IV NOW ONE Stop: 09/03/23 10:19 Last Admin: 09/03/23 10:30 Dose: 40 mg Documented By: VU Hydralazine HCl (Hydralazine 20 Mg/Ml Vial) 10 mg IV Q6HR PRN PRN Reason: SBP>= 160 or DBP >=110 Last Admin: 09/04/23 03:38 Dose: 10 mg Documented By: Admin: 09/03/23 15:40 Dose: 10 mg Documented By: Admin: 09/03/23 00:26 Dose: 10 mg Documented By: Hydroxyzine HCl (Hydroxyzine Hcl 25 Mg Tablet) 25 mg PO Q6H PRN PRN Reason: pruritis Last Admin: 09/06/23 02:38 Dose: 25 mg Documented By: Admin: 09/05/23 20:07 Dose: 25 mg Documented By: Propofol (Propofol) 1,000 mg in 100 mls @ 9.389 mls/hr IV TITRATE CHRISTIANE; Protocol Last Titration: 09/04/23 08:57 Dose: 5 mcg/kg/min, 3.13 mls/hr Documented By: Titration: 09/04/23 08:54 Dose: 10 mcg/kg/min, 6.26 mls/hr Documented By: Titration: 09/04/23 07:21 Dose: 20 mcg/kg/min, 12.519 mls/hr Documented By: Admin: 09/04/23 05:44 Dose: 25 mcg/kg/min, 15.649 mls/hr Documented By: Titration: 09/04/23 05:44 Dose: Infused Documented By: Titration: 09/04/23 01:01 Dose: 25 mcg/kg/min, 15.649 mls/hr Documented By: Admin: 09/04/23 01:01 Dose: 20 mcg/kg/min, 12.519 mls/hr Documented By: Titration: 09/04/23 01:01 Dose: Infused Documented By: Titration: 09/03/23 23:18 Dose: 20 mcg/kg/min, 12.519 mls/hr Documented By: Titration: 09/03/23 21:53 Dose: 15 mcg/kg/min, 9.389 mls/hr Documented By: Titration: 09/03/23 20:28 Dose: 10 mcg/kg/min, 6.26 mls/hr Documented By: Titration: 09/03/23 11:30 Dose: 5 mcg/kg/min, 3.13 mls/hr Documented By: Titration: 09/03/23 10:15 Dose: 10 mcg/kg/min, 6.26 mls/hr Documented By: Admin: 09/03/23 09:52 Dose: 15 mcg/kg/min, 9.389 mls/hr Documented By: Titration: 09/03/23 09:52 Dose: Infused Documented By: Titration: 09/03/23 04:53 Dose: 15 mcg/kg/min, 9.389 mls/hr Documented By: Titration: 09/03/23 03:04 Dose: 20 mcg/kg/min, 12.519 mls/hr Documented By: Titration: 09/03/23 02:37 Dose: 30 mcg/kg/min, 18.779 mls/hr Documented By: Admin: 09/03/23 02:04 Dose: 40 mcg/kg/min, 25.038 mls/hr Documented By: Titration: 09/03/23 01:51 Dose: Infused Documented By: Titration: 09/03/23 01:43 Dose: 40 mcg/kg/min, 25.038 mls/hr Documented By: Admin: 09/02/23 22:37 Dose: 50 mcg/kg/min, 31.298 mls/hr Documented By: Titration: 09/02/23 21:10 Dose: Infused Documented By: Titration: 09/02/23 21:09 Dose: 50 mcg/kg/min, 31.298 mls/hr Documented By: Titration: 09/02/23 17:41 Dose: 50 mcg/kg/min, 31.298 mls/hr Documented By: Titration: 09/02/23 17:32 Dose: 30 mcg/kg/min, 18.779 mls/hr Documented By: Admin: 09/02/23 17:23 Dose: 15 mcg/kg/min, 9.389 mls/hr Documented By: MIGUEL A Sodium Chloride (Normal Saline 0.9%) 1,000 mls @ 150 mls/hr IV BOLUS ONE Stop: 09/02/23 23:51 Last Infusion: 09/03/23 10:00 Dose: Infused Documented By: Infusion: 09/02/23 21:09 Dose: 150 mls/hr Documented By: Admin: 09/02/23 17:21 Dose: 150 mls/hr Documented By: GUILLERMINAS Sodium Chloride (Normal Saline 0.9%) 1,000 mls @ 150 mls/hr IV CONT CHRISTIANE Last Infusion: 09/03/23 09:53 Dose: 0 mls/hr Documented By: Admin: 09/03/23 04:09 Dose: 150 mls/hr Documented By: Admin: 09/02/23 21:53 Dose: Not Given Documented By: dexmedeTOMIDine in 0.9 % NaCL (Precedex) 400 mcg in 100 mls @ 5.216 mls/hr IV TITRATE CHRISTIANE Last Admin: 09/03/23 20:32 Dose: 0.2 mcg/kg/hr, 5.216 mls/hr Documented By: Titration: 09/03/23 20:32 Dose: Infused Documented By: Titration: 09/03/23 15:21 Dose: 0.2 mcg/kg/hr, 5.216 mls/hr Documented By: Admin: 09/03/23 10:59 Dose: 0.4 mcg/kg/hr, 10.433 mls/hr Documented By: Titration: 09/03/23 10:25 Dose: Infused Documented By: Titration: 09/03/23 07:38 Dose: 0.4 mcg/kg/hr, 10.433 mls/hr Documented By: Titration: 09/03/23 04:10 Dose: 0 mcg/kg/hr, 0 mls/hr Documented By: Titration: 09/03/23 03:04 Dose: 0.1 mcg/kg/hr, 2.608 mls/hr Documented By: Titration: 09/03/23 02:36 Dose: 0.2 mcg/kg/hr, 5.216 mls/hr Documented By: Titration: 09/03/23 01:54 Dose: 0.3 mcg/kg/hr, 7.824 mls/hr Documented By: Titration: 09/03/23 01:38 Dose: 0.4 mcg/kg/hr, 10.433 mls/hr Documented By: Titration: 09/03/23 01:22 Dose: 0.5 mcg/kg/hr, 13.041 mls/hr Documented By: Admin: 09/02/23 21:55 Dose: 0.6 mcg/kg/hr, 15.649 mls/hr Documented By: Titration: 09/02/23 21:55 Dose: Infused Documented By: Titration: 09/02/23 21:10 Dose: 0.6 mcg/kg/hr, 15.649 mls/hr Documented By: MIGUEL A Titration: 09/02/23 20:15 Dose: 0.6 mcg/kg/hr, 15.649 mls/hr Documented By: Titration: 09/02/23 18:45 Dose: 0.4 mcg/kg/hr, 10.433 mls/hr Documented By: Titration: 09/02/23 18:20 Dose: 0.2 mcg/kg/hr, 5.216 mls/hr Documented By: Admin: 09/02/23 18:10 Dose: 3.83 mcg/kg/hr, 100 mls/hr Documented By: MIGUEL A Aztreonam 2 gm/ Sodium (Chloride) 100 mls @ 100 mls/hr IV Q8H CHRISTIANE Last Infusion: 09/04/23 03:10 Dose: Infused Documented By: Admin: 09/04/23 02:05 Dose: 100 mls/hr Documented By: Infusion: 09/03/23 19:00 Dose: Infused Documented By: Admin: 09/03/23 17:59 Dose: 100 mls/hr Documented By: Infusion: 09/03/23 11:37 Dose: Infused Documented By: Admin: 09/03/23 10:37 Dose: 100 mls/hr Documented By: VU Doxycycline Hyclate 100 mg/ (Sodium Chloride) 100 mls @ 100 mls/hr IV Q12H [facility] Last Infusion: 09/05/23 11:20 Dose: Infused Documented By: Admin: 09/05/23 10:18 Dose: 100 mls/hr Documented By: Infusion: 09/04/23 23:30 Dose: Infused Documented By: Admin: 09/04/23 22:24 Dose: 100 mls/hr Documented By: Infusion: 09/04/23 19:00 Dose: Infused Documented By: Admin: 09/04/23 10:50 Dose: 100 mls/hr Documented By: Infusion: 09/03/23 23:28 Dose: Infused Documented By: Admin: 09/03/23 22:20 Dose: 100 mls/hr Documented By: Infusion: 09/03/23 12:40 Dose: Infused Documented By: Admin: 09/03/23 11:40 Dose: 100 mls/hr Documented By: VU POTASSIUM CHLORIDE IN WATER (Potassium Cl 10 Meq/100 Ml Nenita) 10 meq in 100 mls @ 100 mls/hr IV Q1H [facility] Stop: 09/03/23 15:44 Last Admin: 09/03/23 13:17 Dose: Not Given Documented By: Admin: 09/03/23 13:17 Dose: Not Given Documented By: VU Cefepime HCl 2 gm/ Sodium (Chloride) 100 mls @ 200 mls/hr IV Q8H [facility] Last Infusion: 09/06/23 09:00 Dose: Infused Documented By: Admin: 09/06/23 08:29 Dose: 200 mls/hr Documented By: Infusion: 09/06/23 00:57 Dose: Infused Documented By: Admin: 09/06/23 00:27 Dose: 200 mls/hr Documented By: Infusion: 09/05/23 17:00 Dose: Infused Documented By: Admin: 09/05/23 16:28 Dose: 200 mls/hr Documented By: Infusion: 09/05/23 08:30 Dose: Infused Documented By: Admin: 09/05/23 07:59 Dose: 200 mls/hr Documented By: Infusion: 09/05/23 00:50 Dose: Infused Documented By: Admin: 09/05/23 00:16 Dose: 200 mls/hr Documented By: Infusion: 09/04/23 19:00 Dose: Infused Documented By: Admin: 09/04/23 17:08 Dose: 200 mls/hr Documented By: Infusion: 09/04/23 09:05 Dose: Infused Documented By: Admin: 09/04/23 08:35 Dose: 200 mls/hr Documented By: VU dexmedeTOMIDine in 0.9 % NaCL (Precedex) 400 mcg in 100 mls @ 4.9 mls/hr IV TITRATE CHRISTIANE; Protocol Last Titration: 09/05/23 12:08 Dose: 0 mcg/kg/hr, 0 mls/hr Documented By: Titration: 09/05/23 10:39 Dose: 0.2 mcg/kg/hr, 4.9 mls/hr Documented By: Admin: 09/05/23 07:20 Dose: 0.4 mcg/kg/hr, 9.8 mls/hr Documented By: Titration: 09/05/23 07:20 Dose: Infused Documented By: Admin: 09/04/23 22:24 Dose: 0.4 mcg/kg/hr, 9.8 mls/hr Documented By: Titration: 09/04/23 22:24 Dose: Infused Documented By: Admin: 09/04/23 12:48 Dose: 0.4 mcg/kg/hr, 9.8 mls/hr Documented By: VU Labetalol HCl (Labetalol 20 Mg/4 Ml Syringe) 10 mg IV Q4HR PRN PRN Reason: Heart Rate- High Last Admin: 09/03/23 18:19 Dose: 10 mg Documented By: VU Lorazepam (Lorazepam 2 Mg/Ml Inj) 2 mg IV NOW ONE Stop: 09/02/23 17:36 Last Admin: 09/02/23 17:38 Dose: 2 mg Documented By: MIGUEL A Methadone HCl (Methadone Intensol 10 Mg/Ml Oral.Conc) 70 mg TUBE DAILY CHRISTIANE Last Admin: 09/04/23 08:50 Dose: 70 mg Documented By: VU Methadone HCl (Methadone Intensol 10 Mg/Ml Oral.Conc) 70 mg PO DAILY [facility] Last Admin: 09/05/23 08:48 Dose: 70 mg Documented By: ELIA Methadone HCl (Methadone Intensol 10 Mg/Ml Oral.Conc) 100 mg PO DAILY [facility] Last Admin: 09/06/23 08:31 Dose: 100 mg Documented By: EDWARDO Methadone HCl (Methadone Intensol 10 Mg/Ml Oral.Conc) 30 mg PO NOW ONE Stop: 09/05/23 10:16 Last Admin: 09/05/23 10:32 Dose: 30 mg Documented By: ELIA Naloxone HCl (Naloxone 0.4 Mg/Ml Vial) 0.2 mg IV Q2MIN PRN PRN Reason: Opiate Reversal Oxycodone HCl (Oxycodone Ir 5 Mg Tablet) 10 mg PO Q4HR PRN PRN Reason: Pain, Severe (7-10) Last Admin: 09/06/23 10:50 Dose: 10 mg Documented By: Admin: 09/06/23 06:40 Dose: 10 mg Documented By: Admin: 09/06/23 02:38 Dose: 10 mg Documented By: Admin: 09/05/23 22:41 Dose: 10 mg Documented By: Admin: 09/05/23 18:36 Dose: 10 mg Documented By: Admin: 09/05/23 14:30 Dose: 10 mg Documented By: ELIA Pantoprazole Sodium (Pantoprazole 40 Mg Vial) 40 mg IV DAILY [facility] Last Admin: 09/04/23 08:04 Dose: 40 mg Documented By: Admin: 09/03/23 08:49 Dose: 40 mg Documented By: FOSTER Pantoprazole Sodium (Pantoprazole 40 Mg Vial) 40 mg IV DAILY [facility] Potassium Chloride (Potassium Chloride 20 Meq/15 Ml Udc) 40 meq PO NOW ONE Stop: 09/03/23 12:56 Last Admin: 09/03/23 13:03 Dose: 40 meq Documented By: VU Potassium Chloride (Potassium Chloride 20 Meq/15 Ml Udc) 40 meq TUBE Q6H [facility] Stop: 09/04/23 13:46 Last Admin: 09/04/23 08:03 Dose: 40 meq Documented By: FOSTER Potassium Chloride (Potassium Chloride 20 Meq Tab) 40 meq PO 1345 ONE Stop: 09/04/23 13:46 Last Admin: 09/04/23 12:48 Dose: 40 meq Documented By: VU Prednisone (Prednisone 20 Mg Tablet) 40 mg PO DAILY CHRISTIANE Stop: 09/08/23 09:01 Last Admin: 09/06/23 08:30 Dose: 40 mg Documented By: Admin: 09/05/23 08:12 Dose: 40 mg Documented By: Admin: 09/04/23 12:48 Dose: 40 mg Documented By: VU Succinylcholine Chloride (Succinylcholine 200 Mg/10 Ml Vial) 150 mg IV NOW ONE Stop: 09/02/23 17:12 Last Admin: 09/02/23 17:10 Dose: 150 mg Documented By: MIGUEL A Vital Signs Vital signs: Vital Signs - 8 hr 09/02/23 17:00 09/02/23 17:03 09/02/23 17:04 Temperature 96.3 F L Pulse Rate 93 H 93 H Respiratory Rate 50 H 41 H Blood Pressure 212/104 H 212/104 H Pulse Oximetry 99 100 Oxygen Delivery Method Ambu Bag 09/02/23 17:04 09/02/23 17:06 09/02/23 17:06 Temperature Pulse Rate 93 H 94 H Respiratory Rate 39 H 46 H Blood Pressure 211/103 H Pulse Oximetry 99 100 Oxygen Delivery Method 09/02/23 17:08 09/02/23 17:09 09/02/23 17:09 Temperature Pulse Rate 91 H 91 H Respiratory Rate 43 H 40 H Blood Pressure 205/108 H Pulse Oximetry 100 100 Oxygen Delivery Method 09/02/23 17:10 09/02/23 17:12 09/02/23 17:14 Temperature Pulse Rate 92 H 96 H 96 H Respiratory Rate 41 H 16 20 Blood Pressure Pulse Oximetry 100 100 100 Oxygen Delivery Method 09/02/23 17:15 09/02/23 17:15 09/02/23 17:16 Temperature Pulse Rate 97 H 94 H Respiratory Rate 18 35 H Blood Pressure 246/121 H Pulse Oximetry 100 100 Oxygen Delivery Method Mechanical Ventilation 09/02/23 17:18 09/02/23 17:18 09/02/23 17:20 Temperature Pulse Rate 82 91 H Respiratory Rate 26 H 34 H Blood Pressure 217/102 H Pulse Oximetry 99 100 Oxygen Delivery Method 09/02/23 17:21 09/02/23 17:21 09/02/23 17:22 Temperature Pulse Rate 86 85 Respiratory Rate 33 H 33 H Blood Pressure 188/87 H Pulse Oximetry 99 99 Oxygen Delivery Method 09/02/23 17:24 09/02/23 17:24 09/02/23 17:26 Temperature Pulse Rate 85 85 Respiratory Rate 35 H 41 H Blood Pressure 213/93 H Pulse Oximetry 98 99 Oxygen Delivery Method Mechanical Ventilation 09/02/23 17:27 09/02/23 17:27 09/02/23 17:28 Temperature Pulse Rate 85 88 Respiratory Rate 41 H 52 H Blood Pressure 196/87 H Pulse Oximetry 98 99 Oxygen Delivery Method 09/02/23 17:30 09/02/23 17:30 09/02/23 17:32 Temperature Pulse Rate 88 85 Respiratory Rate 37 H 28 H Blood Pressure 194/95 H Pulse Oximetry 99 99 Oxygen Delivery Method 09/02/23 17:33 09/02/23 17:33 09/02/23 17:34 Temperature Pulse Rate 88 88 Respiratory Rate 23 29 H Blood Pressure 164/78 H Pulse Oximetry 98 99 Oxygen Delivery Method 09/02/23 17:36 09/02/23 17:36 09/02/23 18:01 Temperature Pulse Rate 87 Respiratory Rate 38 H Blood Pressure 193/103 H 171/85 H Pulse Oximetry 98 Oxygen Delivery Method 09/02/23 18:01 09/02/23 18:03 09/02/23 18:03 Temperature Pulse Rate 86 82 Respiratory Rate 43 H 48 H Blood Pressure 147/80 H Pulse Oximetry 96 99 Oxygen Delivery Method Mechanical Ventilation 09/02/23 18:07 09/02/23 18:07 09/02/23 18:10 Temperature Pulse Rate 81 Respiratory Rate 31 H Blood Pressure 190/95 H 206/96 H Pulse Oximetry 98 Oxygen Delivery Method 09/02/23 18:10 09/02/23 18:12 09/02/23 18:12 Temperature Pulse Rate 86 81 Respiratory Rate 45 H 30 H Blood Pressure 172/89 H Pulse Oximetry 98 96 Oxygen Delivery Method 09/02/23 18:15 09/02/23 18:15 09/02/23 18:18 Temperature Pulse Rate 79 Respiratory Rate 28 H Blood Pressure 172/83 H 170/82 H Pulse Oximetry 96 Oxygen Delivery Method 09/02/23 18:18 09/02/23 18:21 09/02/23 18:21 Temperature Pulse Rate 79 78 Respiratory Rate 27 H 27 H Blood Pressure 159/80 H Pulse Oximetry 96 96 Oxygen Delivery Method 09/02/23 18:24 09/02/23 18:24 09/02/23 18:27 Temperature Pulse Rate 77 Respiratory Rate 28 H Blood Pressure 164/84 H 170/91 H Pulse Oximetry 96 Oxygen Delivery Method 09/02/23 18:27 09/02/23 18:30 09/02/23 18:31 Temperature Pulse Rate 75 72 Respiratory Rate 27 H 24 Blood Pressure 156/77 H Pulse Oximetry 96 96 Oxygen Delivery Method 09/02/23 18:31 09/02/23 18:33 09/02/23 18:33 Temperature Pulse Rate 71 70 Respiratory Rate 29 H 28 H Blood Pressure 140/69 Pulse Oximetry 96 96 Oxygen Delivery Method 09/02/23 18:36 09/02/23 18:36 09/02/23 18:41 Temperature Pulse Rate 73 Respiratory Rate 34 H Blood Pressure 145/73 H 145/93 H Pulse Oximetry 95 Oxygen Delivery Method 09/02/23 18:41 09/02/23 18:42 09/02/23 18:42 Temperature Pulse Rate 74 74 Respiratory Rate 38 H 34 H Blood Pressure 141/80 H Pulse Oximetry 96 97 Oxygen Delivery Method 09/02/23 18:45 09/02/23 18:45 09/02/23 18:48 Temperature Pulse Rate 77 80 Respiratory Rate 34 H 43 H Blood Pressure 164/105 H Pulse Oximetry 97 97 Oxygen Delivery Method 09/02/23 18:48 09/02/23 18:51 09/02/23 18:51 Temperature Pulse Rate 77 Respiratory Rate 31 H Blood Pressure 171/90 H 154/78 H Pulse Oximetry 98 Oxygen Delivery Method 09/02/23 18:54 09/02/23 18:54 09/02/23 18:57 Temperature Pulse Rate 75 Respiratory Rate 33 H Blood Pressure 132/73 166/85 H Pulse Oximetry 98 Oxygen Delivery Method 09/02/23 18:57 09/02/23 19:00 09/02/23 19:01 Temperature Pulse Rate 78 74 Respiratory Rate 39 H 34 H Blood Pressure 172/117 H Pulse Oximetry 99 98 Oxygen Delivery Method 09/02/23 19:01 09/02/23 19:04 09/02/23 19:04 Temperature Pulse Rate 76 79 Respiratory Rate 47 H 42 H Blood Pressure 150/79 H Pulse Oximetry 98 98 Oxygen Delivery Method 09/02/23 19:06 09/02/23 19:06 09/02/23 19:09 Temperature Pulse Rate 75 Respiratory Rate 33 H Blood Pressure 143/76 H 136/68 Pulse Oximetry 99 Oxygen Delivery Method 09/02/23 19:09 09/02/23 19:15 09/02/23 19:45 Temperature Pulse Rate 71 70 66 Respiratory Rate 28 H 32 H 22 Blood Pressure Pulse Oximetry 98 97 95 Oxygen Delivery Method <Awilda Ceballos MD - Last Filed: 09/02/23 23:06> Orders Ordered: Discontinued Medications Acetaminophen (Acetaminophen 325 Mg Tablet) 650 mg PO Q4H PRN PRN Reason: Fever/Mild Pain (1-3) Last Admin: 09/05/23 21:16 Dose: 650 mg Documented By: Admin: 09/05/23 10:21 Dose: 650 mg Documented By: ELIA Albuterol (Albuterol 2.5 Mg/3 Ml Neb (Adult)) 2.5 mg INH [id number] PRN PRN Reason: Dyspnea Last Admin: 09/04/23 09:04 Dose: 2.5 mg Documented By: Admin: 09/03/23 23:07 Dose: 2.5 mg Documented By: Admin: 09/03/23 12:55 Dose: 2.5 mg Documented By: Admin: 09/03/23 04:20 Dose: 2.5 mg Documented By: ECTOR Albuterol (Albuterol 2.5 Mg/3 Ml Neb (Adult)) 2.5 mg INH [id number] PRN PRN Reason: Wheezing Albuterol/Ipratropium (Albuterol/Ipratropium 3 Ml Ampul) 3 ml INH [id number] CHRISTIANE Last Admin: 09/04/23 06:12 Dose: 3 ml Documented By: Admin: 09/04/23 02:10 Dose: 3 ml Documented By: Admin: 09/03/23 22:01 Dose: 3 ml Documented By: Admin: 09/03/23 19:06 Dose: 3 ml Documented By: Admin: 09/03/23 16:25 Dose: 3 ml Documented By: Admin: 09/03/23 09:36 Dose: 3 ml Documented By: DILLAN Albuterol/Ipratropium (Albuterol/Ipratropium 3 Ml Ampul) 3 ml INH [id number] [facility] Last Admin: 09/06/23 08:27 Dose: 3 ml Documented By: Admin: 09/06/23 06:50 Dose: Not Given Documented By: Admin: 09/05/23 18:03 Dose: 3 ml Documented By: Admin: 09/05/23 15:20 Dose: 3 ml Documented By: Admin: 09/05/23 11:11 Dose: 3 ml Documented By: DILLAN(2) Admin: 09/05/23 07:10 Dose: 3 ml Documented By: Admin: 09/05/23 03:09 Dose: Not Given Documented By: Admin: 09/04/23 19:01 Dose: 3 ml Documented By: Admin: 09/04/23 15:50 Dose: 3 ml Documented By: Admin: 09/04/23 11:43 Dose: 3 ml Documented By: DILLAN Amlodipine Besylate (Amlodipine 5 Mg Tablet) 5 mg PO BID [facility] Last Admin: 09/03/23 10:16 Dose: Not Given Documented By: Admin: 09/02/23 22:01 Dose: 5 mg Documented By: Amlodipine Besylate (Amlodipine 5 Mg Tablet) 10 mg PO BEDTIME [facility] Last Admin: 09/05/23 20:07 Dose: 10 mg Documented By: Admin: 09/04/23 20:39 Dose: 10 mg Documented By: Admin: 09/03/23 20:15 Dose: 10 mg Documented By: MS Carvedilol (Carvedilol 12.5 Mg Tablet) 25 mg PO BID [facility] Last Admin: 09/03/23 10:16 Dose: Not Given Documented By: Admin: 09/02/23 22:01 Dose: 25 mg Documented By: MS Carvedilol (Carvedilol 12.5 Mg Tablet) 12.5 mg PO BID [facility] Last Admin: 09/06/23 08:31 Dose: 12.5 mg Documented By: Admin: 09/05/23 20:07 Dose: 12.5 mg Documented By: Admin: 09/05/23 08:12 Dose: 12.5 mg Documented By: Admin: 09/04/23 20:39 Dose: 12.5 mg Documented By: Admin: 09/04/23 08:03 Dose: 12.5 mg Documented By: Admin: 09/03/23 20:16 Dose: 12.5 mg Documented By: Chlorhexidine Gluconate (Chlorhexidine Gluconate 15 Ml Cup) 15 ml PO Q6HR [facility] Last Admin: 09/04/23 05:26 Dose: 15 ml Documented By: Admin: 09/03/23 23:28 Dose: 15 ml Documented By: Admin: 09/03/23 17:54 Dose: 15 ml Documented By: Admin: 09/03/23 13:03 Dose: 15 ml Documented By: Admin: 09/03/23 06:08 Dose: 15 ml Documented By: Admin: 09/02/23 23:12 Dose: 15 ml Documented By: Citalopram Hydrobromide (Citalopram 10 Mg Tablet) 20 mg PO DAILY [facility] Last Admin: 09/06/23 08:30 Dose: 20 mg Documented By: Admin: 09/05/23 08:12 Dose: 20 mg Documented By: Admin: 09/04/23 08:03 Dose: 20 mg Documented By: Admin: 09/03/23 08:48 Dose: 20 mg Documented By: TB Doxycycline Hyclate (Doxycycline Hyclate 100 Mg Tablet) 100 mg PO BID [facility] Last Admin: 09/06/23 08:30 Dose: 100 mg Documented By: Admin: 09/05/23 20:07 Dose: 100 mg Documented By: Enoxaparin Sodium (Enoxaparin 40 Mg/0.4 Ml Syringe) 40 mg SUBCUT DAILY [facility] Last Admin: 09/06/23 08:30 Dose: 40 mg Documented By: Admin: 09/05/23 08:12 Dose: 40 mg Documented By: Admin: 09/04/23 08:03 Dose: 40 mg Documented By: Admin: 09/03/23 08:48 Dose: 40 mg Documented By: FOSTER Enoxaparin Sodium (Enoxaparin 40 Mg/0.4 Ml Syringe) 40 mg SUBCUT DAILY [facility] Etomidate (Etomidate 2 Mg/Ml 10 Ml Vial) 10 mg IV NOW ONE Stop: 09/02/23 17:11 Last Admin: 09/02/23 17:18 Dose: 10 mg Documented By: MIGUEL A Fentanyl (Fentanyl 100 Mcg/2 Ml Inj) 50 mcg IV Q15MIN PRN PRN Reason: Pain, Moderate (4-6) Last Admin: 09/02/23 17:38 Dose: 50 mcg Documented By: MIGUEL A Admin: 09/02/23 17:19 Dose: 50 mcg Documented By: MIGUEL A Furosemide (Furosemide 40 Mg/4 Ml Vial) 40 mg IV NOW ONE Stop: 09/03/23 10:19 Last Admin: 09/03/23 10:30 Dose: 40 mg Documented By: VU Hydralazine HCl (Hydralazine 20 Mg/Ml Vial) 10 mg IV Q6HR PRN PRN Reason: SBP>= 160 or DBP >=110 Last Admin: 09/04/23 03:38 Dose: 10 mg Documented By: Admin: 09/03/23 15:40 Dose: 10 mg Documented By: Admin: 09/03/23 00:26 Dose: 10 mg Documented By: Hydroxyzine HCl (Hydroxyzine Hcl 25 Mg Tablet) 25 mg PO Q6H PRN PRN Reason: pruritis Last Admin: 09/06/23 02:38 Dose: 25 mg Documented By: Admin: 09/05/23 20:07 Dose: 25 mg Documented By: Propofol (Propofol) 1,000 mg in 100 mls @ 9.389 mls/hr IV TITRATE CHRISTIANE; Protocol Last Titration: 09/04/23 08:57 Dose: 5 mcg/kg/min, 3.13 mls/hr Documented By: Titration: 09/04/23 08:54 Dose: 10 mcg/kg/min, 6.26 mls/hr Documented By: Titration: 09/04/23 07:21 Dose: 20 mcg/kg/min, 12.519 mls/hr Documented By: Admin: 09/04/23 05:44 Dose: 25 mcg/kg/min, 15.649 mls/hr Documented By: Titration: 09/04/23 05:44 Dose: Infused Documented By: Titration: 09/04/23 01:01 Dose: 25 mcg/kg/min, 15.649 mls/hr Documented By: Admin: 09/04/23 01:01 Dose: 20 mcg/kg/min, 12.519 mls/hr Documented By: Titration: 09/04/23 01:01 Dose: Infused Documented By: Titration: 09/03/23 23:18 Dose: 20 mcg/kg/min, 12.519 mls/hr Documented By: Titration: 09/03/23 21:53 Dose: 15 mcg/kg/min, 9.389 mls/hr Documented By: Titration: 09/03/23 20:28 Dose: 10 mcg/kg/min, 6.26 mls/hr Documented By: Titration: 09/03/23 11:30 Dose: 5 mcg/kg/min, 3.13 mls/hr Documented By: Titration: 09/03/23 10:15 Dose: 10 mcg/kg/min, 6.26 mls/hr Documented By: Admin: 09/03/23 09:52 Dose: 15 mcg/kg/min, 9.389 mls/hr Documented By: Titration: 09/03/23 09:52 Dose: Infused Documented By: Titration: 09/03/23 04:53 Dose: 15 mcg/kg/min, 9.389 mls/hr Documented By: Titration: 09/03/23 03:04 Dose: 20 mcg/kg/min, 12.519 mls/hr Documented By: Titration: 09/03/23 02:37 Dose: 30 mcg/kg/min, 18.779 mls/hr Documented By: Admin: 09/03/23 02:04 Dose: 40 mcg/kg/min, 25.038 mls/hr Documented By: Titration: 09/03/23 01:51 Dose: Infused Documented By: Titration: 09/03/23 01:43 Dose: 40 mcg/kg/min, 25.038 mls/hr Documented By: Admin: 09/02/23 22:37 Dose: 50 mcg/kg/min, 31.298 mls/hr Documented By: Titration: 09/02/23 21:10 Dose: Infused Documented By: Titration: 09/02/23 21:09 Dose: 50 mcg/kg/min, 31.298 mls/hr Documented By: Titration: 09/02/23 17:41 Dose: 50 mcg/kg/min, 31.298 mls/hr Documented By: Titration: 09/02/23 17:32 Dose: 30 mcg/kg/min, 18.779 mls/hr Documented By: MIGUEL A Admin: 09/02/23 17:23 Dose: 15 mcg/kg/min, 9.389 mls/hr Documented By: MIGUEL A Sodium Chloride (Normal Saline 0.9%) 1,000 mls @ 150 mls/hr IV BOLUS ONE Stop: 09/02/23 23:51 Last Infusion: 09/03/23 10:00 Dose: Infused Documented By: Infusion: 09/02/23 21:09 Dose: 150 mls/hr Documented By: Admin: 09/02/23 17:21 Dose: 150 mls/hr Documented By: MIGUEL A Sodium Chloride (Normal Saline 0.9%) 1,000 mls @ 150 mls/hr IV CONT [facility] Last Infusion: 09/03/23 09:53 Dose: 0 mls/hr Documented By: Admin: 09/03/23 04:09 Dose: 150 mls/hr Documented By: Admin: 09/02/23 21:53 Dose: Not Given Documented By: dexmedeTOMIDine in 0.9 % NaCL (Precedex) 400 mcg in 100 mls @ 5.216 mls/hr IV TITRATE [facility] Last Admin: 09/03/23 20:32 Dose: 0.2 mcg/kg/hr, 5.216 mls/hr Documented By: Titration: 09/03/23 20:32 Dose: Infused Documented By: Titration: 09/03/23 15:21 Dose: 0.2 mcg/kg/hr, 5.216 mls/hr Documented By: Admin: 09/03/23 10:59 Dose: 0.4 mcg/kg/hr, 10.433 mls/hr Documented By: Titration: 09/03/23 10:25 Dose: Infused Documented By: Titration: 09/03/23 07:38 Dose: 0.4 mcg/kg/hr, 10.433 mls/hr Documented By: Titration: 09/03/23 04:10 Dose: 0 mcg/kg/hr, 0 mls/hr Documented By: Titration: 09/03/23 03:04 Dose: 0.1 mcg/kg/hr, 2.608 mls/hr Documented By: Titration: 09/03/23 02:36 Dose: 0.2 mcg/kg/hr, 5.216 mls/hr Documented By: Titration: 09/03/23 01:54 Dose: 0.3 mcg/kg/hr, 7.824 mls/hr Documented By: Titration: 09/03/23 01:38 Dose: 0.4 mcg/kg/hr, 10.433 mls/hr Documented By: Titration: 09/03/23 01:22 Dose: 0.5 mcg/kg/hr, 13.041 mls/hr Documented By: Admin: 09/02/23 21:55 Dose: 0.6 mcg/kg/hr, 15.649 mls/hr Documented By: Titration: 09/02/23 21:55 Dose: Infused Documented By: Titration: 09/02/23 21:10 Dose: 0.6 mcg/kg/hr, 15.649 mls/hr Documented By: MIGUEL A Titration: 09/02/23 20:15 Dose: 0.6 mcg/kg/hr, 15.649 mls/hr Documented By: Titration: 09/02/23 18:45 Dose: 0.4 mcg/kg/hr, 10.433 mls/hr Documented By: Titration: 09/02/23 18:20 Dose: 0.2 mcg/kg/hr, 5.216 mls/hr Documented By: Admin: 09/02/23 18:10 Dose: 3.83 mcg/kg/hr, 100 mls/hr Documented By: MIGUEL A Aztreonam 2 gm/ Sodium (Chloride) 100 mls @ 100 mls/hr IV Q8H [facility] Last Infusion: 09/04/23 03:10 Dose: Infused Documented By: Admin: 09/04/23 02:05 Dose: 100 mls/hr Documented By: Infusion: 09/03/23 19:00 Dose: Infused Documented By: Admin: 09/03/23 17:59 Dose: 100 mls/hr Documented By: Infusion: 09/03/23 11:37 Dose: Infused Documented By: Admin: 09/03/23 10:37 Dose: 100 mls/hr Documented By: VU Doxycycline Hyclate 100 mg/ (Sodium Chloride) 100 mls @ 100 mls/hr IV Q12H [facility] Last Infusion: 09/05/23 11:20 Dose: Infused Documented By: Admin: 09/05/23 10:18 Dose: 100 mls/hr Documented By: Infusion: 09/04/23 23:30 Dose: Infused Documented By: Admin: 09/04/23 22:24 Dose: 100 mls/hr Documented By: Infusion: 09/04/23 19:00 Dose: Infused Documented By: Admin: 09/04/23 10:50 Dose: 100 mls/hr Documented By: Infusion: 09/03/23 23:28 Dose: Infused Documented By: Admin: 09/03/23 22:20 Dose: 100 mls/hr Documented By: Infusion: 09/03/23 12:40 Dose: Infused Documented By: Admin: 09/03/23 11:40 Dose: 100 mls/hr Documented By: VU POTASSIUM CHLORIDE IN WATER (Potassium Cl 10 Meq/100 Ml Nenita) 10 meq in 100 mls @ 100 mls/hr IV Q1H CHRISTIANE Stop: 09/03/23 15:44 Last Admin: 09/03/23 13:17 Dose: Not Given Documented By: Admin: 09/03/23 13:17 Dose: Not Given Documented By: VU Cefepime HCl 2 gm/ Sodium (Chloride) 100 mls @ 200 mls/hr IV Q8H [facility] Last Infusion: 09/06/23 09:00 Dose: Infused Documented By: Admin: 09/06/23 08:29 Dose: 200 mls/hr Documented By: Infusion: 09/06/23 00:57 Dose: Infused Documented By: Admin: 09/06/23 00:27 Dose: 200 mls/hr Documented By: Infusion: 09/05/23 17:00 Dose: Infused Documented By: Admin: 09/05/23 16:28 Dose: 200 mls/hr Documented By: Infusion: 09/05/23 08:30 Dose: Infused Documented By: Admin: 09/05/23 07:59 Dose: 200 mls/hr Documented By: Infusion: 09/05/23 00:50 Dose: Infused Documented By: Admin: 09/05/23 00:16 Dose: 200 mls/hr Documented By: Infusion: 09/04/23 19:00 Dose: Infused Documented By: Admin: 09/04/23 17:08 Dose: 200 mls/hr Documented By: Infusion: 09/04/23 09:05 Dose: Infused Documented By: Admin: 09/04/23 08:35 Dose: 200 mls/hr Documented By: VU dexmedeTOMIDine in 0.9 % NaCL (Precedex) 400 mcg in 100 mls @ 4.9 mls/hr IV TITRATE CHRISTIANE; Protocol Last Titration: 09/05/23 12:08 Dose: 0 mcg/kg/hr, 0 mls/hr Documented By: Titration: 09/05/23 10:39 Dose: 0.2 mcg/kg/hr, 4.9 mls/hr Documented By: Admin: 09/05/23 07:20 Dose: 0.4 mcg/kg/hr, 9.8 mls/hr Documented By: Titration: 09/05/23 07:20 Dose: Infused Documented By: Admin: 09/04/23 22:24 Dose: 0.4 mcg/kg/hr, 9.8 mls/hr Documented By: Titration: 09/04/23 22:24 Dose: Infused Documented By: Admin: 09/04/23 12:48 Dose: 0.4 mcg/kg/hr, 9.8 mls/hr Documented By: VU Labetalol HCl (Labetalol 20 Mg/4 Ml Syringe) 10 mg IV Q4HR PRN PRN Reason: Heart Rate- High Last Admin: 09/03/23 18:19 Dose: 10 mg Documented By: VU Lorazepam (Lorazepam 2 Mg/Ml Inj) 2 mg IV NOW ONE Stop: 09/02/23 17:36 Last Admin: 09/02/23 17:38 Dose: 2 mg Documented By: MIGUEL A Methadone HCl (Methadone Intensol 10 Mg/Ml Oral.Conc) 70 mg TUBE DAILY [facility] Last Admin: 09/04/23 08:50 Dose: 70 mg Documented By: VU Methadone HCl (Methadone Intensol 10 Mg/Ml Oral.Conc) 70 mg PO DAILY [facility] Last Admin: 09/05/23 08:48 Dose: 70 mg Documented By: ELIA Methadone HCl (Methadone Intensol 10 Mg/Ml Oral.Conc) 100 mg PO DAILY [facility] Last Admin: 09/06/23 08:31 Dose: 100 mg Documented By: EDWARDO Methadone HCl (Methadone Intensol 10 Mg/Ml Oral.Conc) 30 mg PO NOW ONE Stop: 09/05/23 10:16 Last Admin: 09/05/23 10:32 Dose: 30 mg Documented By: ELIA Naloxone HCl (Naloxone 0.4 Mg/Ml Vial) 0.2 mg IV Q2MIN PRN PRN Reason: Opiate Reversal Oxycodone HCl (Oxycodone Ir 5 Mg Tablet) 10 mg PO Q4HR PRN PRN Reason: Pain, Severe (7-10) Last Admin: 09/06/23 10:50 Dose: 10 mg Documented By: Admin: 09/06/23 06:40 Dose: 10 mg Documented By: Admin: 09/06/23 02:38 Dose: 10 mg Documented By: Admin: 09/05/23 22:41 Dose: 10 mg Documented By: Admin: 09/05/23 18:36 Dose: 10 mg Documented By: Admin: 09/05/23 14:30 Dose: 10 mg Documented By: ELIA Pantoprazole Sodium (Pantoprazole 40 Mg Vial) 40 mg IV DAILY [facility] Last Admin: 09/04/23 08:04 Dose: 40 mg Documented By: Admin: 09/03/23 08:49 Dose: 40 mg Documented By: FOSTER Pantoprazole Sodium (Pantoprazole 40 Mg Vial) 40 mg IV DAILY [facility] Potassium Chloride (Potassium Chloride 20 Meq/15 Ml Udc) 40 meq PO NOW ONE Stop: 09/03/23 12:56 Last Admin: 09/03/23 13:03 Dose: 40 meq Documented By: VU Potassium Chloride (Potassium Chloride 20 Meq/15 Ml Udc) 40 meq TUBE Q6H [facility] Stop: 09/04/23 13:46 Last Admin: 09/04/23 08:03 Dose: 40 meq Documented By: FOSTER Potassium Chloride (Potassium Chloride 20 Meq Tab) 40 meq PO 1345 ONE Stop: 09/04/23 13:46 Last Admin: 09/04/23 12:48 Dose: 40 meq Documented By: VU Prednisone (Prednisone 20 Mg Tablet) 40 mg PO DAILY [facility] Stop: 09/08/23 09:01 Last Admin: 09/06/23 08:30 Dose: 40 mg Documented By: Admin: 09/05/23 08:12 Dose: 40 mg Documented By: Admin: 09/04/23 12:48 Dose: 40 mg Documented By: VU Succinylcholine Chloride (Succinylcholine 200 Mg/10 Ml Vial) 150 mg IV NOW ONE Stop: 09/02/23 17:12 Last Admin: 09/02/23 17:10 Dose: 150 mg Documented By: MIGUEL A Vital Signs Vital signs: Vital Signs - 8 hr 09/02/23 17:00 09/02/23 17:03 09/02/23 17:04 Temperature 96.3 F L Pulse Rate 93 H 93 H Respiratory Rate 50 H 41 H Blood Pressure 212/104 H 212/104 H Pulse Oximetry 99 100 Oxygen Delivery Method Ambu Bag 09/02/23 17:04 09/02/23 17:06 09/02/23 17:06 Temperature Pulse Rate 93 H 94 H Respiratory Rate 39 H 46 H Blood Pressure 211/103 H Pulse Oximetry 99 100 Oxygen Delivery Method 09/02/23 17:08 09/02/23 17:09 09/02/23 17:09 Temperature Pulse Rate 91 H 91 H Respiratory Rate 43 H 40 H Blood Pressure 205/108 H Pulse Oximetry 100 100 Oxygen Delivery Method 09/02/23 17:10 09/02/23 17:12 09/02/23 17:14 Temperature Pulse Rate 92 H 96 H 96 H Respiratory Rate 41 H 16 20 Blood Pressure Pulse Oximetry 100 100 100 Oxygen Delivery Method 09/02/23 17:15 09/02/23 17:15 09/02/23 17:16 Temperature Pulse Rate 97 H 94 H Respiratory Rate 18 35 H Blood Pressure 246/121 H Pulse Oximetry 100 100 Oxygen Delivery Method Mechanical Ventilation 09/02/23 17:18 09/02/23 17:18 09/02/23 17:20 Temperature Pulse Rate 82 91 H Respiratory Rate 26 H 34 H Blood Pressure 217/102 H Pulse Oximetry 99 100 Oxygen Delivery Method 09/02/23 17:21 09/02/23 17:21 09/02/23 17:22 Temperature Pulse Rate 86 85 Respiratory Rate 33 H 33 H Blood Pressure 188/87 H Pulse Oximetry 99 99 Oxygen Delivery Method 09/02/23 17:24 09/02/23 17:24 09/02/23 17:26 Temperature Pulse Rate 85 85 Respiratory Rate 35 H 41 H Blood Pressure 213/93 H Pulse Oximetry 98 99 Oxygen Delivery Method Mechanical Ventilation 09/02/23 17:27 09/02/23 17:27 09/02/23 17:28 Temperature Pulse Rate 85 88 Respiratory Rate 41 H 52 H Blood Pressure 196/87 H Pulse Oximetry 98 99 Oxygen Delivery Method 09/02/23 17:30 09/02/23 17:30 09/02/23 17:32 Temperature Pulse Rate 88 85 Respiratory Rate 37 H 28 H Blood Pressure 194/95 H Pulse Oximetry 99 99 Oxygen Delivery Method 09/02/23 17:33 09/02/23 17:33 09/02/23 17:34 Temperature Pulse Rate 88 88 Respiratory Rate 23 29 H Blood Pressure 164/78 H Pulse Oximetry 98 99 Oxygen Delivery Method 09/02/23 17:36 09/02/23 17:36 09/02/23 18:01 Temperature Pulse Rate 87 Respiratory Rate 38 H Blood Pressure 193/103 H 171/85 H Pulse Oximetry 98 Oxygen Delivery Method 09/02/23 18:01 09/02/23 18:03 09/02/23 18:03 Temperature Pulse Rate 86 82 Respiratory Rate 43 H 48 H Blood Pressure 147/80 H Pulse Oximetry 96 99 Oxygen Delivery Method Mechanical Ventilation 09/02/23 18:07 09/02/23 18:07 09/02/23 18:10 Temperature Pulse Rate 81 Respiratory Rate 31 H Blood Pressure 190/95 H 206/96 H Pulse Oximetry 98 Oxygen Delivery Method 09/02/23 18:10 09/02/23 18:12 09/02/23 18:12 Temperature Pulse Rate 86 81 Respiratory Rate 45 H 30 H Blood Pressure 172/89 H Pulse Oximetry 98 96 Oxygen Delivery Method 09/02/23 18:15 09/02/23 18:15 09/02/23 18:18 Temperature Pulse Rate 79 Respiratory Rate 28 H Blood Pressure 172/83 H 170/82 H Pulse Oximetry 96 Oxygen Delivery Method 09/02/23 18:18 09/02/23 18:21 09/02/23 18:21 Temperature Pulse Rate 79 78 Respiratory Rate 27 H 27 H Blood Pressure 159/80 H Pulse Oximetry 96 96 Oxygen Delivery Method 09/02/23 18:24 09/02/23 18:24 09/02/23 18:27 Temperature Pulse Rate 77 Respiratory Rate 28 H Blood Pressure 164/84 H 170/91 H Pulse Oximetry 96 Oxygen Delivery Method 09/02/23 18:27 09/02/23 18:30 09/02/23 18:31 Temperature Pulse Rate 75 72 Respiratory Rate 27 H 24 Blood Pressure 156/77 H Pulse Oximetry 96 96 Oxygen Delivery Method 09/02/23 18:31 09/02/23 18:33 09/02/23 18:33 Temperature Pulse Rate 71 70 Respiratory Rate 29 H 28 H Blood Pressure 140/69 Pulse Oximetry 96 96 Oxygen Delivery Method 09/02/23 18:36 09/02/23 18:36 09/02/23 18:41 Temperature Pulse Rate 73 Respiratory Rate 34 H Blood Pressure 145/73 H 145/93 H Pulse Oximetry 95 Oxygen Delivery Method 09/02/23 18:41 09/02/23 18:42 09/02/23 18:42 Temperature Pulse Rate 74 74 Respiratory Rate 38 H 34 H Blood Pressure 141/80 H Pulse Oximetry 96 97 Oxygen Delivery Method 09/02/23 18:45 09/02/23 18:45 09/02/23 18:48 Temperature Pulse Rate 77 80 Respiratory Rate 34 H 43 H Blood Pressure 164/105 H Pulse Oximetry 97 97 Oxygen Delivery Method 09/02/23 18:48 09/02/23 18:51 09/02/23 18:51 Temperature Pulse Rate 77 Respiratory Rate 31 H Blood Pressure 171/90 H 154/78 H Pulse Oximetry 98 Oxygen Delivery Method 09/02/23 18:54 09/02/23 18:54 09/02/23 18:57 Temperature Pulse Rate 75 Respiratory Rate 33 H Blood Pressure 132/73 166/85 H Pulse Oximetry 98 Oxygen Delivery Method 09/02/23 18:57 09/02/23 19:00 09/02/23 19:01 Temperature Pulse Rate 78 74 Respiratory Rate 39 H 34 H Blood Pressure 172/117 H Pulse Oximetry 99 98 Oxygen Delivery Method 09/02/23 19:01 09/02/23 19:04 09/02/23 19:04 Temperature Pulse Rate 76 79 Respiratory Rate 47 H 42 H Blood Pressure 150/79 H Pulse Oximetry 98 98 Oxygen Delivery Method 09/02/23 19:06 09/02/23 19:06 09/02/23 19:09 Temperature Pulse Rate 75 Respiratory Rate 33 H Blood Pressure 143/76 H 136/68 Pulse Oximetry 99 Oxygen Delivery Method 09/02/23 19:09 09/02/23 19:15 09/02/23 19:45 Temperature Pulse Rate 71 70 66 Respiratory Rate 28 H 32 H 22 Blood Pressure Pulse Oximetry 98 97 95 Oxygen Delivery Method MDM - Overdose <Awilda Romero DO - Last Filed: 09/08/23 10:25> Lab Data 09/06/23 04:19 09/06/23 04:19 Labs: Lab Results 09/02/23 09/02/23 09/02/23 Range/Units 17:07 17:23 17:23 WBC 7.7 (4.5-11.0) X10^3/uL RBC 5.18 (4.5-5.9) X10^6/uL Hgb 14.4 (13.5-17.5) g/dL Hct 42.9 (41-53) % MCV 82.8 (80-100) fL MCH 27.7 (26-34) PG MCHC 33.5 (30-36) % RDW 14.1 (11.6-14.8) % Plt Count 312 (150-400) X10^3/uL Neut % (Auto) 72.9 (50-75) % Lymph % (Auto) 13.1 L (25-40) % [place] % (Auto) 8.1 (3-14) % Eos % (Auto) 4.5 H (2-4) % Baso % (Auto) 1.4 (0-2) % Neut # (Auto) 5600 (5625-5509) /uL Lymph # (Auto) 1000 L (8440-4340) /uL [place] # (Auto) 600 (0-900) /uL Eos # (Auto) 300 (0-450) /uL Baso # (Auto) 100 (0-100) /uL PT 11.3 (9.4-12.5) SECONDS INR 1.0 (0.9-1.3) APTT 34 (25.1-36.5) SECONDS ABG Sample Site ABG pH (7.35-7.45) ABG pCO2 (35-45) mmHg ABG pO2 (80-100) mmHg ABG HCO3 (23-27) mmol/L ABG Total CO2 (23-27) mmol/L ABG O2 Saturation (95-100) % ABG Base Excess (-2-3) mmol/L FiO2 Sodium 138 (137-145) mmol/L Potassium 3.4 (3.4-5.1) mmol/L Chloride 102 (98-107) mmol/L Carbon Dioxide 28 (22-32) mmol/L BUN 18 (9-20) mg/dL Creatinine 0.91 (0.66-1.25) mg/dL Estimated GFR > 60 (>60) mL/min BUN/Creatinine Ratio 19.8 (6-22) Glucose 113 H (80-110) mg/dL Lactate 1.0 (0.7-2.1) mmol/L Calcium 10.0 (8.4-10.2) mg/dL Total Bilirubin 0.7 (0.2-1.3) mg/dL AST 45 (17-59) IU/L ALT 21 (<50) IU/L Alkaline Phosphatase 147 H (38-126) U/L Total Creatine Kinase 134 (55-170) U/L Troponin I < 0.012 (0.01-0.034) ng/mL NT-Pro-B Natriuret Pep 491 H (<125) pg/mL Total Protein 9.0 H (6.3-8.2) g/dL Albumin 5.2 H (3.5-5.0) g/dL Globulin 3.8 (1.7-4.1) g/dL Albumin/Globulin Ratio 1.4 (1.0-2.8) Lipase 1923 H (23-300) U/L Procalcitonin 0.03 (<0.5) ng/mL Urine Color Yellow Urine Appearance Clear Urine pH 8.0 Normal (4.5-8.0) Ur Specific [place] 1.015 (1.000-1.035) Urine Protein 1+ H (Negative) Urine Glucose (UA) Negative (Negative) g/dL Urine Ketones Negative (NEGATIVE) Urine Occult Blood Trace-intact (Negative) Urine Nitrate Negative (Negative) Urine Bilirubin Negative (NEGATIVE) Urine Urobilinogen 0.2 (0.2) E.U./dL Ur Leukocyte Esterase Negative (NEGATIVE) Urine RBC 0-1/hpf (0-5/HPF) Urine WBC 0-1/hpf (0-5/HPF) Ur Squamous Epith Cells 0-1 /hpf (0-5/HPF) Urine Bacteria Occasional (0-1) (None) Ur Culture Indicated? Cult not indicated Vol Urine Centrifuged 10ml (spun) Salicylates < 1.0 (<20) mg/dL U Opiates 300ng/mL cut Negative (Negative) Ur Oxycodone Screen Negative (Negative) Urine Methadone Screen Positive H (Negative) Acetaminophen < 10 (10-30) ug/mL Ur Barbiturates Screen Negative (Negative) U Tricyclic Antidepress Negative (Negative) Ur Phencyclidine Scrn Negative (Negative) Ur Amphetamines Screen Negative (Negative) U Methamphetamines Scrn Negative (Negative) Ur MDMA Scrn (Ecstasy) Negative (Negative) U Benzodiazepines Scrn Negative (Negative) Urine Cocaine Screen Negative (Negative) U Marijuana (THC) Screen Positive H (Negative) Urine Specific [place] Normal (Normal) Ethyl Alcohol < 10 ( - 10) mg/dL Ur Creatinine Normal (Normal) 09/02/23 Range/Units 17:51 WBC (4.5-11.0) X10^3/uL RBC (4.5-5.9) X10^6/uL Hgb (13.5-17.5) g/dL Hct (41-53) % MCV (80-100) fL MCH (26-34) PG MCHC (30-36) % RDW (11.6-14.8) % Plt Count (150-400) X10^3/uL Neut % (Auto) (50-75) % Lymph % (Auto) (25-40) % [place] % (Auto) (3-14) % Eos % (Auto) (2-4) % Baso % (Auto) (0-2) % Neut # (Auto) (2327-3675) /uL Lymph # (Auto) (4494-6258) /uL [place] # (Auto) (0-900) /uL Eos # (Auto) (0-450) /uL Baso # (Auto) (0-100) /uL PT (9.4-12.5) SECONDS INR (0.9-1.3) APTT (25.1-36.5) SECONDS ABG Sample Site Right radial ABG pH 7.46 H (7.35-7.45) ABG pCO2 43.7 (35-45) mmHg ABG pO2 114 H (80-100) mmHg ABG HCO3 31 H (23-27) mmol/L ABG Total CO2 32 H (23-27) mmol/L ABG O2 Saturation 99 (95-100) % ABG Base Excess 7.0 H (-2-3) mmol/L FiO2 50 Sodium (137-145) mmol/L Potassium (3.4-5.1) mmol/L Chloride (98-107) mmol/L Carbon Dioxide (22-32) mmol/L BUN (9-20) mg/dL Creatinine (0.66-1.25) mg/dL Estimated GFR (>60) mL/min BUN/Creatinine Ratio (6-22) Glucose (80-110) mg/dL Lactate (0.7-2.1) mmol/L Calcium (8.4-10.2) mg/dL Total Bilirubin (0.2-1.3) mg/dL AST (17-59) IU/L ALT (<50) IU/L Alkaline Phosphatase (38-126) U/L Total Creatine Kinase (55-170) U/L Troponin I (0.01-0.034) ng/mL NT-Pro-B Natriuret Pep (<125) pg/mL Total Protein (6.3-8.2) g/dL Albumin (3.5-5.0) g/dL Globulin (1.7-4.1) g/dL Albumin/Globulin Ratio (1.0-2.8) Lipase (23-300) U/L Procalcitonin (<0.5) ng/mL Urine Color Urine Appearance Urine pH (4.5-8.0) Ur Specific [place] (1.000-1.035) Urine Protein (Negative) Urine Glucose (UA) (Negative) g/dL Urine Ketones (NEGATIVE) Urine Occult Blood (Negative) Urine Nitrate (Negative) Urine Bilirubin (NEGATIVE) Urine Urobilinogen (0.2) E.U./dL Ur Leukocyte Esterase (NEGATIVE) Urine RBC (0-5/HPF) Urine WBC (0-5/HPF) Ur Squamous Epith Cells (0-5/HPF) Urine Bacteria (None) Ur Culture Indicated? Vol Urine Centrifuged Salicylates (<20) mg/dL U Opiates 300ng/mL cut (Negative) Ur Oxycodone Screen (Negative) Urine Methadone Screen (Negative) Acetaminophen (10-30) ug/mL Ur Barbiturates Screen (Negative) U Tricyclic Antidepress (Negative) Ur Phencyclidine Scrn (Negative) Ur Amphetamines Screen (Negative) U Methamphetamines Scrn (Negative) Ur MDMA Scrn (Ecstasy) (Negative) U Benzodiazepines Scrn (Negative) Urine Cocaine Screen (Negative) U Marijuana (THC) Screen (Negative) Urine Specific [place] (Normal) Ethyl Alcohol ( - 10) mg/dL Ur Creatinine (Normal) Imaging Data Chest x-ray: Radiologist's Impression: [address] [address] XRay Report Signed Patient: Octaviano Jj Jr MR#: [id number] : 1955 Acct:[id number] Age/Sex: 68 / M Date of Service: 09/02/23 Loc: ED Accession Number: [id number] Procedure: XR chest 1V Ordering Provider: Awilda Romero D.O. PROCEDURE: XR CHEST 1V INDICATIONS: suspected sepsis TECHNIQUE: One view of the chest was acquired. COMPARISON: [facility], CR, XR CHEST 1V, 08/03/2023, 10:06. [facility], CR, XR CHEST 1V, 07/11/2023, 20:35. FINDINGS: Surgical changes and devices: Endotracheal tube is seen with tip approximately 3.5 cm above the claudia. Lungs and pleura: Suspected patchy retrocardiac opacities at the left lung base. No pleural effusions or pneumothorax. Mediastinum: Mediastinal contours appear normal. Heart size is normal. Bones and chest wall: No suspicious bony lesions. Overlying soft tissues appear unremarkable. IMPRESSION: 1. Endotracheal tube is seen in satisfactory position. 2. Suspected retrocardiac opacities may be secondary to atelectasis, aspiration, or pneumonia. Approved by: Steve Szymanski M.D. on 09/02/2023 at 17:54 ECG Data Attestation: I personally reviewed and interpreted this ECG as follows: Interpretation: Sinus rhythm rate of 79 DE 170 QRS 86 QTC 399. [facility] Narrative Medical decision making narrative: 68-year-old male known cardiac history who was reportedly smoking fentanyl ?blues? when became increasingly short of breath, was hypertensive in the field hypoxic and altered. Had multiple doses of Narcan for 8-10 mg total. Patient was intubated for airway protection did not have any improvement with Narcan. Continues to be hypotensive. Patient is started on propofol drip for sedation with fentanyl pushes. Spoke with Dr. Gonzalez, hospitalist who accepts for admission but would like CT of brain before going upstairs if negative to have the night hospitalist contacted and updated on findings. Dr Ceballos - CT brain negative for acute findings. Admitted to hospital for further threatment <Awilda Ceballos MD - Last Filed: 09/02/23 23:06> Lab Data Labs: Lab Results 09/02/23 09/02/23 09/02/23 Range/Units 17:07 17:23 17:23 WBC 7.7 (4.5-11.0) X10^3/uL RBC 5.18 (4.5-5.9) X10^6/uL Hgb 14.4 (13.5-17.5) g/dL Hct 42.9 (41-53) % MCV 82.8 (80-100) fL MCH 27.7 (26-34) PG MCHC 33.5 (30-36) % RDW 14.1 (11.6-14.8) % Plt Count 312 (150-400) X10^3/uL Neut % (Auto) 72.9 (50-75) % Lymph % (Auto) 13.1 L (25-40) % [place] % (Auto) 8.1 (3-14) % Eos % (Auto) 4.5 H (2-4) % Baso % (Auto) 1.4 (0-2) % Neut # (Auto) 5600 (0754-2338) /uL Lymph # (Auto) 1000 L (3441-2389) /uL [place] # (Auto) 600 (0-900) /uL Eos # (Auto) 300 (0-450) /uL Baso # (Auto) 100 (0-100) /uL PT 11.3 (9.4-12.5) SECONDS INR 1.0 (0.9-1.3) APTT 34 (25.1-36.5) SECONDS ABG Sample Site ABG pH (7.35-7.45) ABG pCO2 (35-45) mmHg ABG pO2 (80-100) mmHg ABG HCO3 (23-27) mmol/L ABG Total CO2 (23-27) mmol/L ABG O2 Saturation (95-100) % ABG Base Excess (-2-3) mmol/L FiO2 Sodium 138 (137-145) mmol/L Potassium 3.4 (3.4-5.1) mmol/L Chloride 102 (98-107) mmol/L Carbon Dioxide 28 (22-32) mmol/L BUN 18 (9-20) mg/dL Creatinine 0.91 (0.66-1.25) mg/dL Estimated GFR > 60 (>60) mL/min BUN/Creatinine Ratio 19.8 (6-22) Glucose 113 H (80-110) mg/dL Lactate 1.0 (0.7-2.1) mmol/L Calcium 10.0 (8.4-10.2) mg/dL Total Bilirubin 0.7 (0.2-1.3) mg/dL AST 45 (17-59) IU/L ALT 21 (<50) IU/L Alkaline Phosphatase 147 H (38-126) U/L Total Creatine Kinase 134 (55-170) U/L Troponin I < 0.012 (0.01-0.034) ng/mL NT-Pro-B Natriuret Pep 491 H (<125) pg/mL Total Protein 9.0 H (6.3-8.2) g/dL Albumin 5.2 H (3.5-5.0) g/dL Globulin 3.8 (1.7-4.1) g/dL Albumin/Globulin Ratio 1.4 (1.0-2.8) Lipase 1923 H (23-300) U/L Procalcitonin 0.03 (<0.5) ng/mL Urine Color Yellow Urine Appearance Clear Urine pH 8.0 Normal (4.5-8.0) Ur Specific [place] 1.015 (1.000-1.035) Urine Protein 1+ H (Negative) Urine Glucose (UA) Negative (Negative) g/dL Urine Ketones Negative (NEGATIVE) Urine Occult Blood Trace-intact (Negative) Urine Nitrate Negative (Negative) Urine Bilirubin Negative (NEGATIVE) Urine Urobilinogen 0.2 (0.2) E.U./dL Ur Leukocyte Esterase Negative (NEGATIVE) Urine RBC 0-1/hpf (0-5/HPF) Urine WBC 0-1/hpf (0-5/HPF) Ur Squamous Epith Cells 0-1 /hpf (0-5/HPF) Urine Bacteria Occasional (0-1) (None) Ur Culture Indicated? Cult not indicated Vol Urine Centrifuged 10ml (spun) Salicylates < 1.0 (<20) mg/dL U Opiates 300ng/mL cut Negative (Negative) Ur Oxycodone Screen Negative (Negative) Urine Methadone Screen Positive H (Negative) Acetaminophen < 10 (10-30) ug/mL Ur Barbiturates Screen Negative (Negative) U Tricyclic Antidepress Negative (Negative) Ur Phencyclidine Scrn Negative (Negative) Ur Amphetamines Screen Negative (Negative) U Methamphetamines Scrn Negative (Negative) Ur MDMA Scrn (Ecstasy) Negative (Negative) U Benzodiazepines Scrn Negative (Negative) Urine Cocaine Screen Negative (Negative) U Marijuana (THC) Screen Positive H (Negative) Urine Specific [place] Normal (Normal) Ethyl Alcohol < 10 ( - 10) mg/dL Ur Creatinine Normal (Normal) 09/02/23 Range/Units 17:51 WBC (4.5-11.0) X10^3/uL RBC (4.5-5.9) X10^6/uL Hgb (13.5-17.5) g/dL Hct (41-53) % MCV (80-100) fL MCH (26-34) PG MCHC (30-36) % RDW (11.6-14.8) % Plt Count (150-400) X10^3/uL Neut % (Auto) (50-75) % Lymph % (Auto) (25-40) % [place] % (Auto) (3-14) % Eos % (Auto) (2-4) % Baso % (Auto) (0-2) % Neut # (Auto) (5552-3000) /uL Lymph # (Auto) (3090-4395) /uL [place] # (Auto) (0-900) /uL Eos # (Auto) (0-450) /uL Baso # (Auto) (0-100) /uL PT (9.4-12.5) SECONDS INR (0.9-1.3) APTT (25.1-36.5) SECONDS ABG Sample Site Right radial ABG pH 7.46 H (7.35-7.45) ABG pCO2 43.7 (35-45) mmHg ABG pO2 114 H (80-100) mmHg ABG HCO3 31 H (23-27) mmol/L ABG Total CO2 32 H (23-27) mmol/L ABG O2 Saturation 99 (95-100) % ABG Base Excess 7.0 H (-2-3) mmol/L FiO2 50 Sodium (137-145) mmol/L Potassium (3.4-5.1) mmol/L Chloride (98-107) mmol/L Carbon Dioxide (22-32) mmol/L BUN (9-20) mg/dL Creatinine (0.66-1.25) mg/dL Estimated GFR (>60) mL/min BUN/Creatinine Ratio (6-22) Glucose (80-110) mg/dL Lactate (0.7-2.1) mmol/L Calcium (8.4-10.2) mg/dL Total Bilirubin (0.2-1.3) mg/dL AST (17-59) IU/L ALT (<50) IU/L Alkaline Phosphatase (38-126) U/L Total Creatine Kinase (55-170) U/L Troponin I (0.01-0.034) ng/mL NT-Pro-B Natriuret Pep (<125) pg/mL Total Protein (6.3-8.2) g/dL Albumin (3.5-5.0) g/dL Globulin (1.7-4.1) g/dL Albumin/Globulin Ratio (1.0-2.8) Lipase (23-300) U/L Procalcitonin (<0.5) ng/mL Urine Color Urine Appearance Urine pH (4.5-8.0) Ur Specific [place] (1.000-1.035) Urine Protein (Negative) Urine Glucose (UA) (Negative) g/dL Urine Ketones (NEGATIVE) Urine Occult Blood (Negative) Urine Nitrate (Negative) Urine Bilirubin (NEGATIVE) Urine Urobilinogen (0.2) E.U./dL Ur Leukocyte Esterase (NEGATIVE) Urine RBC (0-5/HPF) Urine WBC (0-5/HPF) Ur Squamous Epith Cells (0-5/HPF) Urine Bacteria (None) Ur Culture Indicated? Vol Urine Centrifuged Salicylates (<20) mg/dL U Opiates 300ng/mL cut (Negative) Ur Oxycodone Screen (Negative) Urine Methadone Screen (Negative) Acetaminophen (10-30) ug/mL Ur Barbiturates Screen (Negative) U Tricyclic Antidepress (Negative) Ur Phencyclidine Scrn (Negative) Ur Amphetamines Screen (Negative) U Methamphetamines Scrn (Negative) Ur MDMA Scrn (Ecstasy) (Negative) U Benzodiazepines Scrn (Negative) Urine Cocaine Screen (Negative) U Marijuana (THC) Screen (Negative) Urine Specific [place] (Normal) Ethyl Alcohol ( - 10) mg/dL Ur Creatinine (Normal) MDM Narrative Medical decision making narrative: 68-year-old male known cardiac history who was reportedly smoking fentanyl ?blues? when became increasingly short of breath, was hypertensive in the field hypoxic and altered. Had multiple doses of Narcan for 8-10 mg total. Patient was intubated for airway protection did not have any improvement with Narcan. Continues to be hypotensive. Labs EKG Chest x-ray Patient is started on propofol drip for sedation with fentanyl pushes. Dr Ceballos - CT brain negative for acute findings. Admitted to hospital for further threatment Naloxone at Discharge Meets criteria for naloxone at discharge?: No Critical Care Time <Awilda Romero DO - Last Filed: 09/08/23 10:25> Critical Care Time Critical Care Time: Yes Total Critical Care Time: 45 Attestation: The high probability of a clinically significant, sudden or life threatening deterioration of the [cardiac,pulm] system(s) required my full and direct attention, intervention and personal management. The aggregate critical care time was [] minutes. This time is in addition to time spent performing reported procedures but includes the following: [x] Data Review and interpretation [x] Patient assessment and monitoring of vital signs [x] Documentation [x] Medication orders and management Discharge Plan Departure Patient Disposition: Admitted As Inpatient Clinical Impression: Acute metabolic encephalopathy Admit Date/Time: 09/02/23 19:59 Admit Provider: Sarath Ordaz
[2023-09-02] MEDS: ETOMIDATE 2 MG/ML 10 ML VIAL 10 MG IV (17:18)
[2023-09-02] MEDS: fentaNYL 100 MCG/2 ML INJ 50 MCG IV ×2 (17:19→17:38)
[2023-09-02] MEDS: SODIUM CHLORIDE 0.9% 1,000 ML 150 ML IV (17:21)
[2023-09-02] MEDS: propofoL 1,000 MG/100 ML VIAL 9.389 MG IV (17:23)
[2023-09-02 17:28] LABS: Add Manual Diff / Slide Review NO; Basophils Absolute Auto 100 /uL (0-100); Basophils Percent Auto 1.4 % (0-2); Eosinophils Absolute Auto 300 /uL (0-450); Eosinophils Percent Auto 4.5 % (2-4); Hematocrit 42.9 % (41-53); Hemoglobin 14.4 g/dL (13.5-17.5); Lymphocytes Absolute Auto 1000 /uL (1100-4500); Lymphocytes Percent Auto 13.1 % (25-40); Mean Corpuscular HGB Conc 33.5 % (30-36); Mean Corpuscular Hemoglobin 27.7 PG (26-34); Mean Corpuscular Volume 82.8 fL (80-100); Monocytes Absolute Auto 600 /uL (0-900); Monocytes Percent Auto 8.1 % (3-14); Neutrophils Absolute Auto 5600 /uL (1500-7000); Neutrophils Percent Auto 72.9 % (50-75); Platelet Count 312 X10^3/uL (150-400); Red Blood Cell Count 5.18 X10^6/uL (4.5-5.9); Red Cell Distribution Width 14.1 % (11.6-14.8); White Blood Cell Count 7.7 X10^3/uL (4.5-11.0)
[2023-09-02 17:32] LABS: Prothrombin Time 11.3 SECONDS (9.4-12.5)
[2023-09-02 17:35] LABS: PTT Partial Thromboplastin Tim 34 SECONDS (25.1-36.5)
[2023-09-02 17:36] LABS: Appearance Urine UA CLEAR; Bilirubin Urine UA NEGATIVE (NEGATIVE); Color Urine UA YELLOW; Glucose Urine UA NEGATIVE (Negative); Ketones Urine UA NEGATIVE (NEGATIVE); Leukocyte Esterase Urine UA NEGATIVE (NEGATIVE); Nitrite Urine UA NEGATIVE (Negative); Occult Blood Urine UA TRACE-INTACT (Negative); Protein Urine UA 1+ (Negative); Specific Gravity Urine UA 1.015 (1.000-1.035); UR Morphine/Opiate cutoff 300 Negative (Negative); Ur Creatinine Normal (Normal); Ur Specific Gravity Normal (Normal); Urine Amphetamines Negative (Negative); Urine Barbiturates Negative (Negative); Urine Cocaine Negative (Negative); Urine MDMA Negative (Negative); Urine Methamphetamines Negative (Negative); Urine Phencyclidine Negative (Negative); Urine Tetrahydrocannabinol Positive (Negative); Urine pH Normal (Normal); Urobilinogen Urine UA 0.2 E.U./dL (0.2)
[2023-09-02 17:37] LABS: Urine Benzodiazepines Negative (Negative); Urine Methadone Positive (Negative); Urine Oxycodone Negative (Negative); Urine Tricyclic Antidepressant Negative (Negative)
[2023-09-02] MEDS: LORazepam 2 MG/ML INJ IV (17:38)
[2023-09-02 17:43] LABS: Alanine Aminotransferase 21 IU/L (<50); Albumin 5.2 g/dL (3.5-5.0); Albumin Globulin Ratio 1.4 (1.0-2.8); Alkaline Phosphatase 147 U/L (38-126); Aspartate Aminotransferase 45 IU/L (17-59); BUN Creatinine Ratio 19.8 (6-22); Bilirubin Total 0.7 mg/dL (0.2-1.3); Blood Urea Nitrogen 18 mg/dL (9-20); Carbon Dioxide 28 mmol/L (22-32); Chloride 102 mmol/L (98-107); Estimated Glomerular Filt Rate > 60 mL/min (>60); Globulin 3.8 g/dL (1.7-4.1); Glucose 113 mg/dL (80-110); HEMOLYSIS 25 (0-50); Lipase 1923 U/L (23-300); Potassium 3.4 mmol/L (3.4-5.1); Sodium 138 mmol/L (137-145)
[2023-09-02 17:44] LABS: Creatine Kinase 134 U/L (55-170)
[2023-09-02 17:45] LABS: Acetaminophen < 10 ug/mL (10-30); Ethanol (ETOH) < 10 mg/dL; Salicylate < 1.0 mg/dL (<20)
--- NOTE | 2023-09-02 17:45 | PC.NURSE ---
Pt having multiple liquid/soft bowel movements while being changed. Pt does not appear to tolerate movement well and is fighting his tube. Pt lines changed. Pt still agitated and restless attempting to pull at equipment.
[2023-09-02 17:48] LABS: Bacteria Urine Occasional (0-1); Culture Indicated Urine Cult Not Indicated; RBC Urine 0-1/HPF (0-5/HPF); Squamous Epithelial Cell Urine 0-1 /HPF (0-5/HPF); Urine Volume 10mL (spun); WBC Urine 0-1/HPF (0-5/HPF)
[2023-09-02 17:55] LABS: NT-proBNP (BNP-Adult 18+) 491 pg/mL (<125); Troponin I < 0.012 ng/mL (0.01-0.034)
[2023-09-02 18:00] LABS: Procalcitonin 0.03 ng/mL (<0.5)
[2023-09-02 18:00] LABS: Allen Test for ABG Passed? Yes, Passed; Blood Gas Collection Site Right Radial; Fractionated Inspired Oxygen 50; HCO3 ABG 31 mmol/L (23-27); Oxygen Saturation ABG 99 % (95-100); PCO2 ABG 43.7 mmHg (35-45); PO2 ABG 114 mmHg (80-100); TCO2 ABG 32 mmol/L (23-27); pH ABG 7.46 (7.35-7.45)
[2023-09-02] MEDS: dexmedeTOMIDine in 0.9 % NaCL 400 MCG/100 ML PLAST..BAG 100 MCG IV (18:10)
--- NOTE | 2023-09-02 18:24 | DI.CT.S_ITS ---
PROCEDURE: CT HEAD/BRAIN WO CON INDICATIONS: overdose TECHNIQUE: Noncontrast 4.5 mm thick angled axial sections acquired from the foramen magnum to the vertex, with coronal and sagittal reformats. For radiation dose reduction, the following was used: automated exposure control, adjustment of mA and/or kV according to patient size. COMPARISON: [facility], CT, CT HEAD/BRAIN WO CON, 07/11/2023, 20:57. [facility], CT, CT HEAD/BRAIN WO CON, 06/19/2021, 19:43. FINDINGS: Image quality: Diagnostic. CSF spaces: Basal cisterns are patent. No extra-axial fluid collections. The ventricles are symmetric in size and shape. Brain: No acute intracranial hemorrhage or mass effect. Stable hypoattenuating focus in the left inferior frontal periventricular white matter. There is cerebral volume loss for age, with resultant ventricular and sulcal prominence. There are periventricular and deep white matter chronic small vessel ischemic changes. There is intracranial internal carotid artery atherosclerosis. Skull and face: Calvarium and visualized facial bones appear intact, without suspicious lesions. Sinuses: Visualized sinuses and mastoids are clear. IMPRESSION: No acute intracranial pathology. Approved by: Steve Szymanski M.D. on 09/02/2023 at 19:41
--- NOTE | 2023-09-02 19:00 | PC.NURSE ---
Pt to CT pt appears more sedated with a RASS of +1. Pt is not fighting his tube as often or moving his limbs frequently.
[2023-09-02 20:57] LABS: Add Manual Diff / Slide Review NO; Basophils Absolute Auto 100 /uL (0-100); Basophils Percent Auto 0.9 % (0-2); Eosinophils Absolute Auto 100 /uL (0-450); Eosinophils Percent Auto 0.6 % (2-4); Hematocrit 35.3 % (41-53); Hemoglobin 11.8 g/dL (13.5-17.5); Lymphocytes Absolute Auto 400 /uL (1100-4500); Lymphocytes Percent Auto 4.8 % (25-40); Mean Corpuscular HGB Conc 33.5 % (30-36); Mean Corpuscular Hemoglobin 27.7 PG (26-34); Mean Corpuscular Volume 82.7 fL (80-100); Monocytes Absolute Auto 400 /uL (0-900); Monocytes Percent Auto 4.6 % (3-14); Neutrophils Absolute Auto 7800 /uL (1500-7000); Neutrophils Percent Auto 89.1 % (50-75); Platelet Count 240 X10^3/uL (150-400); Red Blood Cell Count 4.27 X10^6/uL (4.5-5.9); Red Cell Distribution Width 14.1 % (11.6-14.8); White Blood Cell Count 8.8 X10^3/uL (4.5-11.0)
[2023-09-02 21:10] LABS: Cholesterol 115 mg/dL (140-199); HDL Cholesterol 46 mg/dL (40-60); LDL Cholesterol Calculated 47 mg/dL (<100); Triglycerides 112 mg/dL (35-150)
[2023-09-02 21:12] LABS: Triglycerides 111 mg/dL (35-150)
[2023-09-02 21:13] LABS: Alanine Aminotransferase 16 IU/L (<50); Albumin 3.9 g/dL (3.5-5.0); Albumin Globulin Ratio 1.4 (1.0-2.8); Alkaline Phosphatase 110 U/L (38-126); Aspartate Aminotransferase 31 IU/L (17-59); BUN Creatinine Ratio 19.3 (6-22); Bilirubin Total 0.7 mg/dL (0.2-1.3); Blood Urea Nitrogen 17 mg/dL (9-20); Calcium 8.5 mg/dL (8.4-10.2); Carbon Dioxide 29 mmol/L (22-32); Chloride 106 mmol/L (98-107); Estimated Glomerular Filt Rate > 60 mL/min (>60); Globulin 2.8 g/dL (1.7-4.1); Glucose 111 mg/dL (80-110); HEMOLYSIS < 15 (0-50); Potassium 3.6 mmol/L (3.4-5.1); Sodium 137 mmol/L (137-145); Total Protein 6.7 g/dL (6.3-8.2)
[2023-09-02 21:28] LABS: Procalcitonin 0.08 ng/mL (<0.5)
[2023-09-02] MEDS: dexmedeTOMIDine in 0.9 % NaCL 400 MCG/100 ML PLAST..BAG 15.649 MCG IV (21:55)
[2023-09-02] MEDS: carvediloL 12.5 MG TABLET 25 MG PO (22:01)
[2023-09-02] MEDS: AMLODIPINE 5 MG TABLET PO (22:01)
--- NOTE | 2023-09-02 22:16 | DI.RAD.S_ITS ---
PROCEDURE: XR CHEST 1V INDICATIONS: OGT Placement TECHNIQUE: One view of the chest was acquired. COMPARISON: [facility], CR, XR CHEST 1V, 09/02/2023, 17:10. FINDINGS: Surgical changes and devices: Nasogastric tube is present distal projecting below hemidiaphragm. Side port is near the gastroesophageal junction. Lungs and pleura: Unchanged appearance increased left basilar opacities Mediastinum: Mediastinal contours appear normal. Heart size is enlarged. Bones and chest wall: No suspicious bony lesions. Overlying soft tissues appear unremarkable. IMPRESSION: Nasogastric tube as described above. More optimal placement may be obtained by forward advancement approximately 5 cm. Dictated by: Sabrina Sotelo M.D. on 09/02/2023 at 23:39 Approved by: Sabrina Sotelo M.D. on 09/02/2023 at 23:40
[2023-09-02] MEDS: propofoL 1,000 MG/100 ML VIAL 31.298 MG IV (22:37)
--- NOTE | 2023-09-02 23:08 | PM.CN.EICU ---
History of Present Illness Consult details IF CAMERA ACTIVATED, patient seen via real-time interactive audiovisual communication: Camera activated Date Patient Seen: 09/03/23 Chief complaint: OD Consent obtained for tele-icing and glaze maker care: Yes Patient Location: ICU Provider location (State): [place] Other participants/roles: RN Narrative: 68-year-old male w/ PMHx notable for HFrEF, CAD, HTN, CVA who presented w/ sudden onset shortness of breath with chest pain after smoking fentanyl ?blues?. Received 8 mg of Narcan from family with no improvement in mental status. Patient was tachypneic requiring assisted respirations with BVM. Intubated in the ED. Labs notable for WBC of 7K, creatinine 0.9, troponin-I < 0.012, NT-pro-BNP 491, lipase 1923, procalcitonin 0.03, (-) salicylates, (-) acetaminophen, (-) EtOH. U tox also (+) for THC. pCXR notable for possible retrocardiac infiltrates. PFSH Medical History Chronic neck and back pain Systolic congestive 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, NYHA class 1 Left hemiparesis Stroke Right rib fracture Coronary artery disease Hypertension Surgical History History of cholecystectomy Hx of fusion of cervical spine History of surgery on wrist History of shoulder surgery History of laparotomy Family History Father Parkinsons Mother Cancer Brother Cancer Sister No significant medical problems Social History household members: spouse Smoking Status: Former smoker alcohol intake: current substance use type: does not use Current Medications Current Medications Medications: Home Medications acetaminophen 500 mg tablet 1,000 mg PO Q6H PRN Pain (Scale Score 1-3) 11/21/18 [History Confirmed 09/02/23] carvedilol 25 mg tablet 25 mg PO BID #60 tabs 01/11/22 [Rx Confirmed 09/02/23] amlodipine 5 mg tablet 5 mg PO BID #30 tabs 07/22/22 [Rx Confirmed 09/02/23] citalopram 20 mg tablet 20 mg PO DAILY 08/16/22 [History Confirmed 09/02/23] methadone 10 mg tablet 70 mg PO DAILY 07/12/23 [History Confirmed 09/02/23] albuterol sulfate 90 mcg/actuation aerosol inhaler (Ventolin HFA) 2 inhalation inhalation QID PRN shortness of breath or wheezing #6.7 grams 08/03/23 [Rx Confirmed 09/02/23] benzonatate 100 mg capsule 100 mg PO TID PRN cough #20 caps 08/03/23 [Rx Confirmed 09/02/23] fluticasone propionate 44 mcg/actuation HFA aerosol inhaler 44 mcg inhalation 09/02/23 [History] Visit Medications (administered) Generic Name Dose Route Start Last Admin Trade Name Freq PRN Reason Stop Dose Admin Amlodipine Besylate 5 mg 09/02/23 21:00 09/02/23 22:01 Amlodipine 5 Mg Tablet PO 5 mg BID CHRISTIANE Administration Carvedilol 25 mg 09/02/23 21:00 09/02/23 22:01 Carvedilol 12.5 Mg Tablet PO 25 mg BID CHRISTIANE Administration Fentanyl 50 mcg 09/02/23 17:12 09/02/23 17:38 Fentanyl 100 Mcg/2 Ml Inj IV 50 mcg Q15MIN PRN Administration Pain, Moderate (4-6) Propofol 1,000 mg in 100 mls @ 9.389 mls/hr 09/02/23 17:15 09/02/23 22:37 Propofol IV 50 mcg/kg/min TITRATE CHRISTIANE 31.298 mls/hr Administration Protocol 15 MCG/KG/MIN Sodium Chloride 1,000 mls @ 150 mls/hr 09/02/23 17:12 09/02/23 21:09 Normal Saline 0.9% IV 09/02/23 23:51 150 mls/hr BOLUS ONE Infusion Sodium Chloride 1,000 mls @ 150 mls/hr 09/02/23 17:15 09/02/23 21:53 Normal Saline 0.9% IV Not Given CONT CHRISTIANE dexmedeTOMIDine in 0.9 % NaCL 400 mcg in 100 mls @ 5.216 mls/hr 09/02/23 18:00 09/02/23 21:55 Precedex IV 0.6 mcg/kg/hr TITRATE CHRISTIANE 15.649 mls/hr Administration 0.2 MCG/KG/HR Exam Vital Signs (past 8 hours): - 09/02/23 17:00 09/02/23 17:03 09/02/23 17:04 Temperature 96.3 F L Pulse Rate 93 H 93 H Respiratory Rate 50 H 41 H Blood Pressure 212/104 H 212/104 H Pulse Oximetry 99 100 Oxygen Delivery Method Ambu Bag 09/02/23 17:04 09/02/23 17:06 09/02/23 17:06 Temperature Pulse Rate 93 H 94 H Respiratory Rate 39 H 46 H Blood Pressure 211/103 H Pulse Oximetry 99 100 Oxygen Delivery Method 09/02/23 17:08 09/02/23 17:09 09/02/23 17:09 Temperature Pulse Rate 91 H 91 H Respiratory Rate 43 H 40 H Blood Pressure 205/108 H Pulse Oximetry 100 100 Oxygen Delivery Method 09/02/23 17:10 09/02/23 17:12 09/02/23 17:14 Temperature Pulse Rate 92 H 96 H 96 H Respiratory Rate 41 H 16 20 Blood Pressure Pulse Oximetry 100 100 100 Oxygen Delivery Method 09/02/23 17:15 09/02/23 17:15 09/02/23 17:16 Temperature Pulse Rate 97 H 94 H Respiratory Rate 18 35 H Blood Pressure 246/121 H Pulse Oximetry 100 100 Oxygen Delivery Method Mechanical Ventilation 09/02/23 17:18 09/02/23 17:18 09/02/23 17:20 Temperature Pulse Rate 82 91 H Respiratory Rate 26 H 34 H Blood Pressure 217/102 H Pulse Oximetry 99 100 Oxygen Delivery Method 09/02/23 17:21 09/02/23 17:21 09/02/23 17:22 Temperature Pulse Rate 86 85 Respiratory Rate 33 H 33 H Blood Pressure 188/87 H Pulse Oximetry 99 99 Oxygen Delivery Method 09/02/23 17:24 09/02/23 17:24 09/02/23 17:26 Temperature Pulse Rate 85 85 Respiratory Rate 35 H 41 H Blood Pressure 213/93 H Pulse Oximetry 98 99 Oxygen Delivery Method Mechanical Ventilation 09/02/23 17:27 09/02/23 17:27 09/02/23 17:28 Temperature Pulse Rate 85 88 Respiratory Rate 41 H 52 H Blood Pressure 196/87 H Pulse Oximetry 98 99 Oxygen Delivery Method 09/02/23 17:30 09/02/23 17:30 09/02/23 17:32 Temperature Pulse Rate 88 85 Respiratory Rate 37 H 28 H Blood Pressure 194/95 H Pulse Oximetry 99 99 Oxygen Delivery Method 09/02/23 17:33 09/02/23 17:33 09/02/23 17:34 Temperature Pulse Rate 88 88 Respiratory Rate 23 29 H Blood Pressure 164/78 H Pulse Oximetry 98 99 Oxygen Delivery Method 09/02/23 17:36 09/02/23 17:36 09/02/23 18:01 Temperature Pulse Rate 87 Respiratory Rate 38 H Blood Pressure 193/103 H 171/85 H Pulse Oximetry 98 Oxygen Delivery Method 09/02/23 18:01 09/02/23 18:03 09/02/23 18:03 Temperature Pulse Rate 86 82 Respiratory Rate 43 H 48 H Blood Pressure 147/80 H Pulse Oximetry 96 99 Oxygen Delivery Method Mechanical Ventilation 09/02/23 18:07 09/02/23 18:07 09/02/23 18:10 Temperature Pulse Rate 81 Respiratory Rate 31 H Blood Pressure 190/95 H 206/96 H Pulse Oximetry 98 Oxygen Delivery Method 09/02/23 18:10 09/02/23 18:12 09/02/23 18:12 Temperature Pulse Rate 86 81 Respiratory Rate 45 H 30 H Blood Pressure 172/89 H Pulse Oximetry 98 96 Oxygen Delivery Method 09/02/23 18:15 09/02/23 18:15 09/02/23 18:18 Temperature Pulse Rate 79 Respiratory Rate 28 H Blood Pressure 172/83 H 170/82 H Pulse Oximetry 96 Oxygen Delivery Method 09/02/23 18:18 09/02/23 18:21 09/02/23 18:21 Temperature Pulse Rate 79 78 Respiratory Rate 27 H 27 H Blood Pressure 159/80 H Pulse Oximetry 96 96 Oxygen Delivery Method 09/02/23 18:24 09/02/23 18:24 09/02/23 18:27 Temperature Pulse Rate 77 Respiratory Rate 28 H Blood Pressure 164/84 H 170/91 H Pulse Oximetry 96 Oxygen Delivery Method 09/02/23 18:27 09/02/23 18:30 09/02/23 18:31 Temperature Pulse Rate 75 72 Respiratory Rate 27 H 24 Blood Pressure 156/77 H Pulse Oximetry 96 96 Oxygen Delivery Method 09/02/23 18:31 09/02/23 18:33 09/02/23 18:33 Temperature Pulse Rate 71 70 Respiratory Rate 29 H 28 H Blood Pressure 140/69 Pulse Oximetry 96 96 Oxygen Delivery Method 09/02/23 18:36 09/02/23 18:36 09/02/23 18:41 Temperature Pulse Rate 73 Respiratory Rate 34 H Blood Pressure 145/73 H 145/93 H Pulse Oximetry 95 Oxygen Delivery Method 09/02/23 18:41 09/02/23 18:42 09/02/23 18:42 Temperature Pulse Rate 74 74 Respiratory Rate 38 H 34 H Blood Pressure 141/80 H Pulse Oximetry 96 97 Oxygen Delivery Method 09/02/23 18:45 09/02/23 18:45 09/02/23 18:48 Temperature Pulse Rate 77 80 Respiratory Rate 34 H 43 H Blood Pressure 164/105 H Pulse Oximetry 97 97 Oxygen Delivery Method 09/02/23 18:48 09/02/23 18:51 09/02/23 18:51 Temperature Pulse Rate 77 Respiratory Rate 31 H Blood Pressure 171/90 H 154/78 H Pulse Oximetry 98 Oxygen Delivery Method 09/02/23 18:54 09/02/23 18:54 09/02/23 18:57 Temperature Pulse Rate 75 Respiratory Rate 33 H Blood Pressure 132/73 166/85 H Pulse Oximetry 98 Oxygen Delivery Method 09/02/23 18:57 09/02/23 19:00 09/02/23 19:01 Temperature Pulse Rate 78 74 Respiratory Rate 39 H 34 H Blood Pressure 172/117 H Pulse Oximetry 99 98 Oxygen Delivery Method 09/02/23 19:01 09/02/23 19:04 09/02/23 19:04 Temperature Pulse Rate 76 79 Respiratory Rate 47 H 42 H Blood Pressure 150/79 H Pulse Oximetry 98 98 Oxygen Delivery Method 09/02/23 19:06 09/02/23 19:06 09/02/23 19:09 Temperature Pulse Rate 75 Respiratory Rate 33 H Blood Pressure 143/76 H 136/68 Pulse Oximetry 99 Oxygen Delivery Method 09/02/23 19:09 09/02/23 19:15 09/02/23 19:45 Temperature Pulse Rate 71 70 66 Respiratory Rate 28 H 32 H 22 Blood Pressure Pulse Oximetry 98 97 95 Oxygen Delivery Method 09/02/23 20:00 09/02/23 20:01 09/02/23 20:05 Temperature Pulse Rate 64 63 Respiratory Rate 21 18 Blood Pressure 116/58 L Pulse Oximetry 95 94 Oxygen Delivery Method Mechanical Ventilation 05/03/24 20:05 09/02/23 20:10 09/02/23 20:10 Temperature Pulse Rate 63 62 Respiratory Rate 19 19 Blood Pressure 109/59 L Pulse Oximetry 93 93 Oxygen Delivery Method 09/02/23 20:15 09/02/23 20:20 09/02/23 20:20 Temperature Pulse Rate 60 59 L Respiratory Rate 18 19 Blood Pressure 112/56 L Pulse Oximetry 93 94 Oxygen Delivery Method 09/02/23 20:30 09/02/23 20:30 09/02/23 20:40 Temperature Pulse Rate 57 L Respiratory Rate 18 Blood Pressure 118/61 120/62 Pulse Oximetry 94 Oxygen Delivery Method Mechanical Ventilation 09/02/23 20:40 09/02/23 20:45 09/02/23 21:00 Temperature Pulse Rate 57 L 57 L 58 L Respiratory Rate 18 18 19 Blood Pressure 132/70 Pulse Oximetry 91 93 96 Oxygen Delivery Method 09/02/23 21:00 09/02/23 21:00 09/02/23 22:00 Temperature 97.0 F L Pulse Rate 58 L Respiratory Rate 19 Blood Pressure 132/70 Pulse Oximetry 96 Oxygen Delivery Method Mechanical Ventilation 09/02/23 22:01 Temperature Pulse Rate 61 Respiratory Rate Blood Pressure 171/84 H Pulse Oximetry Oxygen Delivery Method Oxygen Delivery Method Mechanical Ventilation Const Other: intubated, sedated Resp Other: non-labored respirations on ventilator Cardio Other: sinus rhythm on monitor Objective Labs 09/02/23 20:46 09/02/23 20:46 Labs: Laboratory Results - last 24 hr 09/02/23 09/02/23 09/02/23 17:07 17:23 17:23 WBC 7.7 RBC 5.18 Hgb 14.4 Hct 42.9 MCV 82.8 MCH 27.7 MCHC 33.5 RDW 14.1 Plt Count 312 Neut % (Auto) 72.9 Lymph % (Auto) 13.1 L [place] % (Auto) 8.1 Eos % (Auto) 4.5 H Baso % (Auto) 1.4 Neut # (Auto) 5600 Lymph # (Auto) 1000 L [place] # (Auto) 600 Eos # (Auto) 300 Baso # (Auto) 100 PT 11.3 INR 1.0 APTT 34 ABG Sample Site ABG pH ABG pCO2 ABG pO2 ABG HCO3 ABG Total CO2 ABG O2 Saturation ABG Base Excess FiO2 Sodium 138 Potassium 3.4 Chloride 102 Carbon Dioxide 28 BUN 18 Creatinine 0.91 Estimated GFR > 60 BUN/Creatinine Ratio 19.8 Glucose 113 H Lactate 1.0 Calcium 10.0 Total Bilirubin 0.7 AST 45 ALT 21 Alkaline Phosphatase 147 H Total Creatine Kinase 134 Troponin I < 0.012 NT-Pro-B Natriuret Pep 491 H Total Protein 9.0 H Albumin 5.2 H Globulin 3.8 Albumin/Globulin Ratio 1.4 Triglycerides Cholesterol LDL Cholesterol, Calc HDL Cholesterol Lipase 1923 H Procalcitonin 0.03 Urine Color Yellow Urine Appearance Clear Urine pH 8.0 Normal Ur Specific [place] 1.015 Urine Protein 1+ H Urine Glucose (UA) Negative Urine Ketones Negative Urine Occult Blood Trace-intact Urine Nitrate Negative Urine Bilirubin Negative Urine Urobilinogen 0.2 Ur Leukocyte Esterase Negative Urine RBC 0-1/hpf Urine WBC 0-1/hpf Ur Squamous Epith Cells 0-1 /hpf Urine Bacteria Occasional (0-1) Ur Culture Indicated? Cult not indicated Vol Urine Centrifuged 10ml (spun) Salicylates < 1.0 U Opiates 300ng/mL cut Negative Ur Oxycodone Screen Negative Urine Methadone Screen Positive H Acetaminophen < 10 Ur Barbiturates Screen Negative U Tricyclic Antidepress Negative Ur Phencyclidine Scrn Negative Ur Amphetamines Screen Negative U Methamphetamines Scrn Negative Ur MDMA Scrn (Ecstasy) Negative U Benzodiazepines Scrn Negative Urine Cocaine Screen Negative U Marijuana (THC) Screen Positive H Urine Specific [place] Normal Ethyl Alcohol < 10 Ur Creatinine Normal 09/02/23 09/02/23 09/02/23 17:51 20:46 20:46 WBC 8.8 RBC 4.27 L Hgb 11.8 L Hct 35.3 L MCV 82.7 MCH 27.7 MCHC 33.5 RDW 14.1 Plt Count 240 Neut % (Auto) 89.1 H Lymph % (Auto) 4.8 L [place] % (Auto) 4.6 Eos % (Auto) 0.6 L Baso % (Auto) 0.9 Neut # (Auto) 7800 H Lymph # (Auto) 400 L [place] # (Auto) 400 Eos # (Auto) 100 Baso # (Auto) 100 PT INR APTT ABG Sample Site Right radial ABG pH 7.46 H ABG pCO2 43.7 ABG pO2 114 H ABG HCO3 31 H ABG Total CO2 32 H ABG O2 Saturation 99 ABG Base Excess 7.0 H FiO2 50 Sodium 137 Potassium 3.6 Chloride 106 Carbon Dioxide 29 BUN 17 Creatinine 0.88 Estimated GFR > 60 BUN/Creatinine Ratio 19.3 Glucose 111 H Lactate Calcium 8.5 Total Bilirubin 0.7 AST 31 ALT 16 Alkaline Phosphatase 110 Total Creatine Kinase Troponin I NT-Pro-B Natriuret Pep Total Protein 6.7 Albumin 3.9 Globulin 2.8 Albumin/Globulin Ratio 1.4 Triglycerides 111 112 Cholesterol 115 L LDL Cholesterol, Calc 47 HDL Cholesterol 46 Lipase Procalcitonin 0.08 Urine Color Urine Appearance Urine pH Ur Specific [place] Urine Protein Urine Glucose (UA) Urine Ketones Urine Occult Blood Urine Nitrate Urine Bilirubin Urine Urobilinogen Ur Leukocyte Esterase Urine RBC Urine WBC Ur Squamous Epith Cells Urine Bacteria Ur Culture Indicated? 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
[2023-09-02] MEDS: CHLORHEXIDINE GLUCONATE 15 ML CUP PO (23:12)
[2023-09-02 23:36] LABS: PCO2 ABG 36.6 mmHg (35-45)
[2023-09-02 23:37] LABS: Allen Test for ABG Passed? Yes, Passed; Blood Gas Collection Site Right Radial; Blood Gas Other Coll. Site N; Fractionated Inspired Oxygen 40; HCO3 ABG 29 mmol/L (23-27); Oxygen Saturation ABG 96 % (95-100); PO2 ABG 76 mmHg (80-100); TCO2 ABG 30 mmol/L (23-27)
--- NOTE | 2023-09-02 23:40 | PM.HP.1 ---
History of Present Illness History of Present Illness Chief complaint: OD Narrative: 68 years old male with history of hypertension, CVA, CHF presented to the ER with sudden onset of shortness of breath and chest pain after smoking fentanyl blues. Received 8 mg of Narcan from family with noted improvement of his mental status and was brought to the ER where he was intubated. Currently on mechanical ventilation. Laboratory shows WBC 7, creatinine 0.9, troponin negative, BNP 491, lipase 1923, procalcitonin 0.03, U tox positive for THC. Chest x-ray shows retrocardiac infiltrates. [facility] Medical History Chronic neck and back pain Systolic congestive 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, NYHA class 1 Left hemiparesis Stroke Right rib fracture Coronary artery disease Hypertension Surgical History History of cholecystectomy Hx of fusion of cervical spine History of surgery on wrist History of shoulder surgery History of laparotomy Family History Father Parkinsons Mother Cancer Brother Cancer Sister No significant medical problems Social History household members: spouse Smoking Status: Former smoker alcohol intake: current substance use type: does not use Meds Home Medications and Allergies Home Medications Medication Instructions Recorded Confirmed Type acetaminophen 500 mg tablet 1,000 mg PO Q6H PRN Pain (Scale 11/21/18 09/02/23 History Score 1-3) carvedilol 25 mg tablet 25 mg PO BID #60 tabs 01/11/22 09/02/23 Rx amlodipine 5 mg tablet 5 mg PO BID #30 tabs 07/22/22 09/02/23 Rx citalopram 20 mg tablet 20 mg PO DAILY 08/16/22 09/02/23 History methadone 10 mg tablet 70 mg PO DAILY 07/12/23 09/02/23 History albuterol sulfate 90 mcg/actuation 2 inhalation inhalation QID PRN 08/03/23 09/02/23 Rx aerosol inhaler (Ventolin HFA) shortness of breath or wheezing #6.7 grams benzonatate 100 mg capsule 100 mg PO TID PRN cough #20 caps 08/03/23 09/02/23 Rx fluticasone propionate 44 44 mcg inhalation 09/02/23 History mcg/actuation HFA aerosol inhaler Allergies Allergy/AdvReac Type Severity Reaction Status Date / Time NSAIDS (Non-Steroidal Allergy Severe Swelling Verified 08/12/23 10:10 Anti-Inflamma of Lip/Tongue/Throat Penicillins [PENICILLINS] Allergy Severe Swelling Verified 08/12/23 10:10 of Lip/Tongue/Throat chocolate flavor Allergy Intermediate Swelling Verified 08/12/23 10:10 of Lip/Tongue/Throat peanut Allergy Intermediate Swelling Verified 08/12/23 10:10 of Lip/Tongue/Throat strawberry Allergy Intermediate Swelling Verified 08/12/23 10:10 of Lip/Tongue/Throat celecoxib [From CELEBREX] Allergy Unknown Verified 08/12/23 10:10 lisinopril [LISINOPRIL] Allergy Unknown Verified 08/12/23 10:10 meloxicam [MELOXICAM] Allergy Unknown ANAPHYLAXSI Verified 08/12/23 10:10 S avocado AdvReac Intermediate Swelling Verified 08/12/23 10:10 of Lip/Tongue/Throat peas AdvReac Intermediate Swelling Verified 08/12/23 10:10 of Lip/Tongue/Throat sulfite AdvReac Intermediate Migraine Verified 08/12/23 10:10 Review of Systems Review of Systems ROS: Yes All systems reviewed with the patient and are negative except as otherwise documented Constitutional Constitutional: Reports as per HPI and Reports system reviewed and no additional complaints, except as documented Eyes Eyes: Reports as per HPI and Reports system reviewed and no additional complaints, except as documented ENT Ears, Nose, Mouth, and Throat: Yes as per HPI and Yes system reviewed and no additional complaints, except as documented Cardiovascular Cardiovascular: Reports system reviewed and no additional complaints, except as documented Respiratory Respiratory: Reports system reviewed and no additional complaints, except as documented Gastrointestinal Gastrointestinal: Reports system reviewed and no additional complaints, except as documented Genitourinary Genitourinary: Reports system reviewed and no additional complaints, except as documented Musculoskeletal Musculoskeletal: Reports system reviewed and no additional complaints, except as documented, Reports abnormal gait and Reports numbness Neurologic Neurologic: Reports system reviewed and no additional complaints, except as documented, Reports abnormal gait, Reports confusion and Reports numbness Psychiatric Psychiatric: Reports system reviewed and no additional complaints, except as documented and Reports confusion Exam Vital Signs (past 8 hours): - 09/02/23 17:00 09/02/23 17:03 09/02/23 17:04 Temperature 96.3 F L Pulse Rate 93 H 93 H Respiratory Rate 50 H 41 H Blood Pressure 212/104 H 212/104 H Pulse Oximetry 99 100 Oxygen Delivery Method Ambu Bag Fraction of Inspired Oxygen 09/02/23 17:04 09/02/23 17:06 09/02/23 17:06 Temperature Pulse Rate 93 H 94 H Respiratory Rate 39 H 46 H Blood Pressure 211/103 H Pulse Oximetry 99 100 Oxygen Delivery Method Fraction of Inspired Oxygen 09/02/23 17:08 09/02/23 17:09 09/02/23 17:09 Temperature Pulse Rate 91 H 91 H Respiratory Rate 43 H 40 H Blood Pressure 205/108 H Pulse Oximetry 100 100 Oxygen Delivery Method Fraction of Inspired Oxygen 09/02/23 17:10 09/02/23 17:12 09/02/23 17:14 Temperature Pulse Rate 92 H 96 H 96 H Respiratory Rate 41 H 16 20 Blood Pressure Pulse Oximetry 100 100 100 Oxygen Delivery Method Fraction of Inspired Oxygen 09/02/23 17:15 09/02/23 17:15 09/02/23 17:16 Temperature Pulse Rate 97 H 94 H Respiratory Rate 18 35 H Blood Pressure 246/121 H Pulse Oximetry 100 100 Oxygen Delivery Method Mechanical Ventilation Fraction of Inspired Oxygen 09/02/23 17:18 09/02/23 17:18 09/02/23 17:20 Temperature Pulse Rate 82 91 H Respiratory Rate 26 H 34 H Blood Pressure 217/102 H Pulse Oximetry 99 100 Oxygen Delivery Method Fraction of Inspired Oxygen 09/02/23 17:21 09/02/23 17:21 09/02/23 17:22 Temperature Pulse Rate 86 85 Respiratory Rate 33 H 33 H Blood Pressure 188/87 H Pulse Oximetry 99 99 Oxygen Delivery Method Fraction of Inspired Oxygen 09/02/23 17:24 09/02/23 17:24 09/02/23 17:26 Temperature Pulse Rate 85 85 Respiratory Rate 35 H 41 H Blood Pressure 213/93 H Pulse Oximetry 98 99 Oxygen Delivery Method Mechanical Ventilation Fraction of Inspired Oxygen 09/02/23 17:27 09/02/23 17:27 09/02/23 17:28 Temperature Pulse Rate 85 88 Respiratory Rate 41 H 52 H Blood Pressure 196/87 H Pulse Oximetry 98 99 Oxygen Delivery Method Fraction of Inspired Oxygen 09/02/23 17:30 09/02/23 17:30 09/02/23 17:32 Temperature Pulse Rate 88 85 Respiratory Rate 37 H 28 H Blood Pressure 194/95 H Pulse Oximetry 99 99 Oxygen Delivery Method Fraction of Inspired Oxygen 09/02/23 17:33 09/02/23 17:33 09/02/23 17:34 Temperature Pulse Rate 88 88 Respiratory Rate 23 29 H Blood Pressure 164/78 H Pulse Oximetry 98 99 Oxygen Delivery Method Fraction of Inspired Oxygen 09/02/23 17:36 09/02/23 17:36 09/02/23 18:01 Temperature Pulse Rate 87 Respiratory Rate 38 H Blood Pressure 193/103 H 171/85 H Pulse Oximetry 98 Oxygen Delivery Method Fraction of Inspired Oxygen 09/02/23 18:01 09/02/23 18:03 09/02/23 18:03 Temperature Pulse Rate 86 82 Respiratory Rate 43 H 48 H Blood Pressure 147/80 H Pulse Oximetry 96 99 Oxygen Delivery Method Mechanical Ventilation Fraction of Inspired Oxygen 09/02/23 18:07 09/02/23 18:07 09/02/23 18:10 Temperature Pulse Rate 81 Respiratory Rate 31 H Blood Pressure 190/95 H 206/96 H Pulse Oximetry 98 Oxygen Delivery Method Fraction of Inspired Oxygen 09/02/23 18:10 09/02/23 18:12 09/02/23 18:12 Temperature Pulse Rate 86 81 Respiratory Rate 45 H 30 H Blood Pressure 172/89 H Pulse Oximetry 98 96 Oxygen Delivery Method Fraction of Inspired Oxygen 09/02/23 18:15 09/02/23 18:15 09/02/23 18:18 Temperature Pulse Rate 79 Respiratory Rate 28 H Blood Pressure 172/83 H 170/82 H Pulse Oximetry 96 Oxygen Delivery Method Fraction of Inspired Oxygen 09/02/23 18:18 09/02/23 18:21 09/02/23 18:21 Temperature Pulse Rate 79 78 Respiratory Rate 27 H 27 H Blood Pressure 159/80 H Pulse Oximetry 96 96 Oxygen Delivery Method Fraction of Inspired Oxygen 09/02/23 18:24 09/02/23 18:24 09/02/23 18:27 Temperature Pulse Rate 77 Respiratory Rate 28 H Blood Pressure 164/84 H 170/91 H Pulse Oximetry 96 Oxygen Delivery Method Fraction of Inspired Oxygen 09/02/23 18:27 09/02/23 18:30 09/02/23 18:31 Temperature Pulse Rate 75 72 Respiratory Rate 27 H 24 Blood Pressure 156/77 H Pulse Oximetry 96 96 Oxygen Delivery Method Fraction of Inspired Oxygen 09/02/23 18:31 09/02/23 18:33 09/02/23 18:33 Temperature Pulse Rate 71 70 Respiratory Rate 29 H 28 H Blood Pressure 140/69 Pulse Oximetry 96 96 Oxygen Delivery Method Fraction of Inspired Oxygen 09/02/23 18:36 09/02/23 18:36 09/02/23 18:41 Temperature Pulse Rate 73 Respiratory Rate 34 H Blood Pressure 145/73 H 145/93 H Pulse Oximetry 95 Oxygen Delivery Method Fraction of Inspired Oxygen 09/02/23 18:41 09/02/23 18:42 09/02/23 18:42 Temperature Pulse Rate 74 74 Respiratory Rate 38 H 34 H Blood Pressure 141/80 H Pulse Oximetry 96 97 Oxygen Delivery Method Fraction of Inspired Oxygen 09/02/23 18:45 09/02/23 18:45 09/02/23 18:48 Temperature Pulse Rate 77 80 Respiratory Rate 34 H 43 H Blood Pressure 164/105 H Pulse Oximetry 97 97 Oxygen Delivery Method Fraction of Inspired Oxygen 09/02/23 18:48 09/02/23 18:51 09/02/23 18:51 Temperature Pulse Rate 77 Respiratory Rate 31 H Blood Pressure 171/90 H 154/78 H Pulse Oximetry 98 Oxygen Delivery Method Fraction of Inspired Oxygen 09/02/23 18:54 09/02/23 18:54 09/02/23 18:57 Temperature Pulse Rate 75 Respiratory Rate 33 H Blood Pressure 132/73 166/85 H Pulse Oximetry 98 Oxygen Delivery Method Fraction of Inspired Oxygen 09/02/23 18:57 09/02/23 19:00 09/02/23 19:01 Temperature Pulse Rate 78 74 Respiratory Rate 39 H 34 H Blood Pressure 172/117 H Pulse Oximetry 99 98 Oxygen Delivery Method Fraction of Inspired Oxygen 09/02/23 19:01 09/02/23 19:04 09/02/23 19:04 Temperature Pulse Rate 76 79 Respiratory Rate 47 H 42 H Blood Pressure 150/79 H Pulse Oximetry 98 98 Oxygen Delivery Method Fraction of Inspired Oxygen 09/02/23 19:06 09/02/23 19:06 09/02/23 19:09 Temperature Pulse Rate 75 Respiratory Rate 33 H Blood Pressure 143/76 H 136/68 Pulse Oximetry 99 Oxygen Delivery Method Fraction of Inspired Oxygen 09/02/23 19:09 09/02/23 19:15 09/02/23 19:45 Temperature Pulse Rate 71 70 66 Respiratory Rate 28 H 32 H 22 Blood Pressure Pulse Oximetry 98 97 95 Oxygen Delivery Method Fraction of Inspired Oxygen 09/02/23 20:00 09/02/23 20:01 09/02/23 20:05 Temperature Pulse Rate 64 63 Respiratory Rate 21 18 Blood Pressure 116/58 L Pulse Oximetry 95 94 Oxygen Delivery Method Mechanical Ventilation Fraction of Inspired Oxygen 09/02/23 20:05 09/02/23 20:10 09/02/23 20:10 Temperature Pulse Rate 63 62 Respiratory Rate 19 19 Blood Pressure 109/59 L Pulse Oximetry 93 93 Oxygen Delivery Method Fraction of Inspired Oxygen 09/02/23 20:15 09/02/23 20:20 09/02/23 20:20 Temperature Pulse Rate 60 59 L Respiratory Rate 18 19 Blood Pressure 112/56 L Pulse Oximetry 93 94 Oxygen Delivery Method Fraction of Inspired Oxygen 09/02/23 20:30 09/02/23 20:30 09/02/23 20:40 Temperature Pulse Rate 57 L Respiratory Rate 18 Blood Pressure 118/61 120/62 Pulse Oximetry 94 Oxygen Delivery Method Mechanical Ventilation Fraction of Inspired Oxygen 09/02/23 20:40 09/02/23 20:45 09/02/23 21:00 Temperature Pulse Rate 57 L 57 L 58 L Respiratory Rate 18 18 19 Blood Pressure 132/70 Pulse Oximetry 91 93 96 Oxygen Delivery Method Fraction of Inspired Oxygen 09/02/23 21:00 09/02/23 21:00 09/02/23 22:00 Temperature 97.0 F L Pulse Rate 58 L Respiratory Rate 19 Blood Pressure 132/70 Pulse Oximetry 96 Oxygen Delivery Method Mechanical Ventilation Fraction of Inspired Oxygen 09/02/23 22:00 09/02/23 22:01 09/02/23 22:30 Temperature 97.0 F L 96.8 F L Pulse Rate 62 61 63 Respiratory Rate 18 18 Blood Pressure 171/84 H 171/84 H 177/83 H Pulse Oximetry 97 96 Oxygen Delivery Method Fraction of Inspired Oxygen 40 40 09/02/23 23:00 09/02/23 23:30 Temperature 96.8 F L 97.0 F L Pulse Rate 61 60 Respiratory Rate 18 14 Blood Pressure 174/84 H 172/84 H Pulse Oximetry 92 96 Oxygen Delivery Method Fraction of Inspired Oxygen 40 40 Fraction of Inspired Oxygen 40 Oxygen Delivery Method Mechanical Ventilation Const General: cooperative, comfortable and well developed Orientation: alert and oriented x3 [facility] Head: normal to inspection, normocephalic and atraumatic Face and sinus: normal facial exam Mouth: oral mucosae normal and moist mucous membranes Throat: posterior oropharynx normal Eyes General: appearance normal, both eyes and all related structures Pupils: PERRL EOM: EOM intact bilaterally Neck Neck: normal visual inspection and full ROM Chest Chest: normal inspection of the chest Resp Effort & Inspection: normal respiratory effort and able to speak in complete sentences Auscultation: clear to auscultation bilaterally Cardio Palpation: normal PMI Rate: regular rate Rhythm: regular rhythm Heart Sounds: S1 normal and S2 normal GI Inspection: normal to inspection Palpation: soft and no hepatosplenomegaly Auscultation: normal bowel sounds Skin General: no rashes or lesions noted Lesions: no lesions Rashes: no rashes Trauma: no lacerations or abrasions Neuro General: patient alert, patient awake, patient oriented x3 and no focal motor deficits Cranial Nerves: CN's II-XI intact bilaterally Cognition: normal cognition Speech: speech normal Gait: normal gait Motor: muscle tone normal throughout Sensory Exam: no sensory deficits noted Extrem General: full ROM and no calf tenderness Psych Appearance: grossly normal Mental Status: mental status grossly normal Speech and Movement: speech and movement normal Objective Labs 09/02/23 20:46 09/02/23 20:46 Labs: Laboratory Results - last 24 hr 09/02/23 09/02/23 09/02/23 17:07 17:23 17:23 WBC 7.7 RBC 5.18 Hgb 14.4 Hct 42.9 MCV 82.8 MCH 27.7 MCHC 33.5 RDW 14.1 Plt Count 312 Neut % (Auto) 72.9 Lymph % (Auto) 13.1 L [place] % (Auto) 8.1 Eos % (Auto) 4.5 H Baso % (Auto) 1.4 Neut # (Auto) 5600 Lymph # (Auto) 1000 L [place] # (Auto) 600 Eos # (Auto) 300 Baso # (Auto) 100 PT 11.3 INR 1.0 APTT 34 Sample Site ABG Sample Site ABG pH ABG pCO2 ABG pO2 ABG HCO3 ABG Total CO2 ABG O2 Saturation ABG Base Excess FiO2 Sodium 138 Potassium 3.4 Chloride 102 Carbon Dioxide 28 BUN 18 Creatinine 0.91 Estimated GFR > 60 BUN/Creatinine Ratio 19.8 Glucose 113 H Lactate 1.0 Calcium 10.0 Total Bilirubin 0.7 AST 45 ALT 21 Alkaline Phosphatase 147 H Total Creatine Kinase 134 Troponin I < 0.012 NT-Pro-B Natriuret Pep 491 H Total Protein 9.0 H Albumin 5.2 H Globulin 3.8 Albumin/Globulin Ratio 1.4 Triglycerides Cholesterol LDL Cholesterol, Calc HDL Cholesterol Lipase 1923 H Procalcitonin 0.03 Urine Color Yellow Urine Appearance Clear Urine pH 8.0 Normal Ur Specific [place] 1.015 Urine Protein 1+ H Urine Glucose (UA) Negative Urine Ketones Negative Urine Occult Blood Trace-intact Urine Nitrate Negative Urine Bilirubin Negative Urine Urobilinogen 0.2 Ur Leukocyte Esterase Negative Urine RBC 0-1/hpf Urine WBC 0-1/hpf Ur Squamous Epith Cells 0-1 /hpf Urine Bacteria Occasional (0-1) Ur Culture Indicated? Cult not indicated Vol Urine Centrifuged 10ml (spun) Salicylates < 1.0 U Opiates 300ng/mL cut Negative Ur Oxycodone Screen Negative Urine Methadone Screen Positive H Acetaminophen < 10 Ur Barbiturates Screen Negative U Tricyclic Antidepress Negative Ur Phencyclidine Scrn Negative Ur Amphetamines Screen Negative U Methamphetamines Scrn Negative Ur MDMA Scrn (Ecstasy) Negative U Benzodiazepines Scrn Negative Urine Cocaine Screen Negative U Marijuana (THC) Screen Positive H Urine Specific [place] Normal Ethyl Alcohol < 10 Ur Creatinine Normal 09/02/23 09/02/23 09/02/23 17:51 20:46 20:46 WBC 8.8 RBC 4.27 L Hgb 11.8 L Hct 35.3 L MCV 82.7 MCH 27.7 MCHC 33.5 RDW 14.1 Plt Count 240 Neut % (Auto) 89.1 H Lymph % (Auto) 4.8 L [place] % (Auto) 4.6 Eos % (Auto) 0.6 L Baso % (Auto) 0.9 Neut # (Auto) 7800 H Lymph # (Auto) 400 L [place] # (Auto) 400 Eos # (Auto) 100 Baso # (Auto) 100 PT INR APTT Sample Site ABG Sample Site Right radial ABG pH 7.46 H ABG pCO2 43.7 ABG pO2 114 H ABG HCO3 31 H ABG Total CO2 32 H ABG O2 Saturation 99 ABG Base Excess 7.0 H FiO2 50 Sodium 137 Potassium 3.6 Chloride 106 Carbon Dioxide 29 BUN 17 Creatinine 0.88 Estimated GFR > 60 BUN/Creatinine Ratio 19.3 Glucose 111 H Lactate Calcium 8.5 Total Bilirubin 0.7 AST 31 ALT 16 Alkaline Phosphatase 110 Total Creatine Kinase Troponin I NT-Pro-B Natriuret Pep Total Protein 6.7 Albumin 3.9 Globulin 2.8 Albumin/Globulin Ratio 1.4 Triglycerides 111 112 Cholesterol 115 L LDL Cholesterol, Calc 47 HDL Cholesterol 46 Lipase Procalcitonin 0.08 Urine Color Urine Appearance Urine pH Ur Specific [place] Urine Protein Urine Glucose (UA) Urine Ketones Urine Occult Blood Urine Nitrate Urine Bilirubin Urine Urobilinogen Ur Leukocyte Esterase Urine RBC Urine WBC Ur Squamous Epith Cells Urine Bacteria Ur Culture Indicated? Vol Urine Centrifuged Salicylates U Opiates 300ng/mL cut Ur Oxycodone Screen Urine Methadone Screen Acetaminophen Ur Barbiturates Screen U Tricyclic Antidepress Ur Phencyclidine Scrn Ur Amphetamines Screen U Methamphetamines Scrn Ur MDMA Scrn (Ecstasy) U Benzodiazepines Scrn Urine Cocaine Screen U Marijuana (THC) Screen Urine Specific [place] Ethyl Alcohol Ur Creatinine 09/02/23 23:12 WBC RBC Hgb Hct MCV MCH MCHC RDW Plt Count Neut % (Auto) Lymph % (Auto) [place] % (Auto) Eos % (Auto) Baso % (Auto) Neut # (Auto) Lymph # (Auto) [place] # (Auto) Eos # (Auto) Baso # (Auto) PT INR APTT Sample Site N ABG Sample Site Right radial ABG pH 7.50 H ABG pCO2 36.6 ABG pO2 76 L ABG HCO3 29 H ABG Total CO2 30 H ABG O2 Saturation 96 ABG Base Excess 5.0 H FiO2 40 Sodium Potassium Chloride Carbon Dioxide BUN Creatinine Estimated GFR BUN/Creatinine Ratio Glucose Lactate Calcium Total Bilirubin AST ALT Alkaline Phosphatase Total Creatine Kinase Troponin I NT-Pro-B Natriuret Pep Total Protein Albumin Globulin Albumin/Globulin Ratio Triglycerides Cholesterol LDL Cholesterol, Calc HDL Cholesterol Lipase Procalcitonin Urine Color Urine Appearance Urine pH Ur Specific [place] Urine Protein Urine Glucose (UA) Urine Ketones Urine Occult Blood Urine Nitrate Urine Bilirubin Urine Urobilinogen Ur Leukocyte Esterase Urine RBC Urine WBC Ur Squamous Epith Cells Urine Bacteria Ur Culture Indicated? Vol Urine Centrifuged Salicylates U Opiates 300ng/mL cut Ur Oxycodone Screen Urine Methadone Screen Acetaminophen Ur Barbiturates Screen U Tricyclic Antidepress Ur Phencyclidine Scrn Ur Amphetamines Screen U Methamphetamines Scrn Ur MDMA Scrn (Ecstasy) U Benzodiazepines Scrn Urine Cocaine Screen U Marijuana (THC) Screen Urine Specific [place] Ethyl Alcohol Ur Creatinine Assessment & Plan Assessment & Plan narrative: Fentanyl overdose requiring intubation and mechanical ventilation. Chest x-ray shows retrocardiac infiltrates. Procalcitonin negative. Suspect aspiration. -Continue mechanical ventilation with sedation of propofol and fentanyl as needed. -Weaning from the ventilation in the morning -Hold methadone for now -Hold any antibiotics for now Hypertension. Restart amlodipine. CHF. Continue with Coreg. Monitor for any fluid overload. DVT prophylaxis. Enoxaparin subcu GI prophylaxis. Protonix. Time Spent With Patient Time with patient: 50 to 69 minutes with 50% spent counseling/coordinating care Quality VTE Deep Vein Thrombosis/Pulmonary Embolism Present on Admission: No MIPS - Admit I confirm the patient?s Advance Care Plan is present, Code status is documented, Surrogate decision maker is in patient?s record [If Yes, STOP here]: Yes MIPS - Meds 'Current medications' to include all prescriptions, [id number] products, herbals, cannabis/cannabidiol products, and vitamin/mineral/dietary (nutritional) supplements. I have utilized all available resources to obtain, update, or review the patient?s current medications. [If Yes, STOP here]: Yes
[2023-09-03] VITALS (89 sets, daily range): BP systolic 102–188; BP diastolic 55–84; PULSE 46–74; RESP 14–45; TEMP 36.2–38.3; O2SAT 93–100
[2023-09-03 00:11] LABS: MRSA (Nasal) PCR NOT DETECTED (Not Detect)
[2023-09-03] MEDS: HYDRALAZINE 20 MG/ML VIAL 10 MG IV ×2 (00:26→15:40)
[2023-09-03] MEDS: propofoL 1,000 MG/100 ML VIAL 25.038 MG IV (02:04)
[2023-09-03] MEDS: SODIUM CHLORIDE 0.9% 1,000 ML 150 ML IV (04:09)
[2023-09-03] MEDS: ALBUTEROL 2.5 MG/3 ML NEB (ADULT) INH ×3 (04:20→23:07)
[2023-09-03 04:53] LABS: Lipase 353 U/L (23-300)
[2023-09-03] MEDS: CHLORHEXIDINE GLUCONATE 15 ML CUP PO ×4 (06:08→23:28)
[2023-09-03 06:47] LABS: Magnesium 2.1 mg/dL (1.6-2.3)
[2023-09-03] MEDS: ENOXAPARIN 40 MG/0.4 ML SYRINGE SUBCUT (08:48)
[2023-09-03] MEDS: CITALOPRAM 10 MG TABLET 20 MG PO (08:48)
[2023-09-03] MEDS: PANTOPRAZOLE 40 MG VIAL IV (08:49)
[2023-09-03] MEDS: ALBUTEROL/IPRATROPIUM 3 ML AMPUL INH ×4 (09:36→22:01)
[2023-09-03] MEDS: propofoL 1,000 MG/100 ML VIAL 9.389 MG IV (09:52)
--- NOTE | 2023-09-03 10:14 | DI.RAD.S_ITS ---
PROCEDURE: XR CHEST 1V INDICATIONS: possible PNA TECHNIQUE: One view of the chest was acquired. COMPARISON: [facility], CR, XR CHEST 1V, 09/02/2023, 17:10. [facility], CR, XR CHEST 1V, 09/02/2023, 22:18. FINDINGS: Surgical changes and devices: There is an endotracheal tube 2.2 cm above claudia. A nasogastric tube is seen with the tip in the proximal stomach.. Lungs and pleura: Mild perihilar infiltrates. No focal consolidation. No pleural effusions or pneumothorax. Mediastinum: Mediastinal contours appear normal. Heart size is slightly enlarged. Bones and chest wall: No suspicious bony lesions. Overlying soft tissues appear unremarkable. IMPRESSION: 1. Endotracheal tube and nasogastric tube as described. 2. Mild cardiomegaly and perihilar infiltrates suggesting mild CHF. Dictated by: Chantel Munson M.D. on 09/03/2023 at 10:47 Approved by: Chantel Munson M.D. on 09/03/2023 at 10:49
--- NOTE | 2023-09-03 10:22 | PM.PN.EICU ---
Subjective Subjective IF CAMERA ACTIVATED, patient seen via real-time interactive audiovisual communication: Camera activated Consent obtained for tele-director of marketing google performance ads care: Yes Patient Location: ICU Provider location (State): Other participants/roles: RN Interval history: 68-year-old male w/ PMHx notable for HFrEF, CAD, HTN, CVA who presented w/ sudden onset shortness of breath with chest pain after smoking fentanyl ?blues?. Received 8 mg of Narcan from family with no improvement in mental status. Patient was tachypneic requiring assisted respirations with BVM. Intubated in the ED. Today: Comfortable on vent, on precedex @ 0.4 and propfol @ 10 Vent adjusted, sw Assessment: Acute hypoxemic resp failure 2/2 Acute encephalopathy 2/2 smoking fentanyl ?blues? Rec Wean off sedation , propfole then precedex Stop IV fluid, a dose of IV lasix 40 mg x1 Switched vent sitting to PS 10//40, doing well, plan to extubate when mental status improves lower the dose of Coreg to 12.5 mg bid and hold if HR below 60 Change amldoipine dose to 10 mg QHS Protonix stress ulcer prophylaxis Enoxaparin VTE chemoprophylaxis D/W nurse at bedside CCT 35 min Current Medications Current Medications Medications: Home Medications acetaminophen 500 mg tablet 1,000 mg PO Q6H PRN Pain (Scale Score 1-3) 11/21/18 [History Confirmed 09/02/23] carvedilol 25 mg tablet 25 mg PO BID #60 tabs 01/11/22 [Rx Confirmed 09/02/23] amlodipine 5 mg tablet 5 mg PO BID #30 tabs 07/22/22 [Rx Confirmed 09/02/23] citalopram 20 mg tablet 20 mg PO DAILY 08/16/22 [History Confirmed 09/02/23] methadone 10 mg tablet 70 mg PO DAILY 07/12/23 [History Confirmed 09/02/23] albuterol sulfate 90 mcg/actuation aerosol inhaler (Ventolin HFA) 2 inhalation inhalation QID PRN shortness of breath or wheezing #6.7 grams 08/03/23 [Rx Confirmed 09/02/23] benzonatate 100 mg capsule 100 mg PO TID PRN cough #20 caps 08/03/23 [Rx Confirmed 09/02/23] fluticasone propionate 44 mcg/actuation HFA aerosol inhaler 44 mcg inhalation 09/02/23 [History] Visit Medications (administered) Generic Name Dose Route Start Last Admin Trade Name Freq PRN Reason Stop Dose Admin Albuterol 2.5 mg 09/03/23 04:06 09/03/23 04:20 Albuterol 2.5 Mg/3 Ml Neb (Adult) INH 2.5 mg [id number] PRN Administration Dyspnea Albuterol/Ipratropium 3 ml 09/03/23 11:00 09/03/23 09:36 Albuterol/Ipratropium 3 Ml Ampul INH 3 ml [id number] CHRISTIANE Administration Chlorhexidine Gluconate 15 ml 09/03/23 00:00 09/03/23 06:08 Chlorhexidine Gluconate 15 Ml Cup PO 15 ml Q6HR CHRISTIANE Administration Citalopram Hydrobromide 20 mg 09/03/23 09:00 09/03/23 08:48 Citalopram 10 Mg Tablet PO 20 mg DAILY CHRISTIANE Administration Enoxaparin Sodium 40 mg 09/03/23 09:00 09/03/23 08:48 Enoxaparin 40 Mg/0.4 Ml Syringe SUBCUT 40 mg DAILY CHRISTIANE Administration Hydralazine HCl 10 mg 09/03/23 00:06 09/03/23 00:26 Hydralazine 20 Mg/Ml Vial IV 10 mg Q6HR PRN Administration SBP>= 160 or DBP >=110 Propofol 1,000 mg in 100 mls @ 9.389 mls/hr 09/02/23 17:15 09/03/23 09:52 Propofol IV 15 mcg/kg/min TITRATE CHRISTIANE 9.389 mls/hr Administration Protocol 15 MCG/KG/MIN dexmedeTOMIDine in 0.9 % NaCL 400 mcg in 100 mls @ 5.216 mls/hr 09/02/23 18:00 09/03/23 07:38 Precedex IV 0.4 mcg/kg/hr TITRATE CHRISTIANE 10.433 mls/hr Titration 0.2 MCG/KG/HR Pantoprazole Sodium 40 mg 09/03/23 09:00 09/03/23 08:49 Pantoprazole 40 Mg Vial IV 40 mg DAILY CHRISTIANE Administration Objective Ventilator Parameters: Ventilator Settings FiO2 40 RT Vent Frequency 18 Ventilator Tidal Volume 420 Exhaled Vt/kg IBW 5.5 Positive End Expiratory 7 Pressure Ventilator Pressure Support 10 Inspiratory Phase Time 0.8 I:E Ratio 1:3.2 Patient Position HOB >= 30 degrees Labs 09/02/23 20:46 09/02/23 20:46 Labs: Laboratory Results - last 24 hr 09/02/23 09/02/23 09/02/23 17:07 17:23 17:23 WBC 7.7 RBC 5.18 Hgb 14.4 Hct 42.9 MCV 82.8 MCH 27.7 MCHC 33.5 RDW 14.1 Plt Count 312 Neut % (Auto) 72.9 Lymph % (Auto) 13.1 L [place] % (Auto) 8.1 Eos % (Auto) 4.5 H Baso % (Auto) 1.4 Neut # (Auto) 5600 Lymph # (Auto) 1000 L [place] # (Auto) 600 Eos # (Auto) 300 Baso # (Auto) 100 PT 11.3 INR 1.0 APTT 34 Sample Site ABG Sample Site ABG pH ABG pCO2 ABG pO2 ABG HCO3 ABG Total CO2 ABG O2 Saturation ABG Base Excess FiO2 Sodium 138 Potassium 3.4 Chloride 102 Carbon Dioxide 28 BUN 18 Creatinine 0.91 Estimated GFR > 60 BUN/Creatinine Ratio 19.8 Glucose 113 H Lactate 1.0 Calcium 10.0 Magnesium Total Bilirubin 0.7 AST 45 ALT 21 Alkaline Phosphatase 147 H Total Creatine Kinase 134 Troponin I < 0.012 NT-Pro-B Natriuret Pep 491 H Total Protein 9.0 H Albumin 5.2 H Globulin 3.8 Albumin/Globulin Ratio 1.4 Triglycerides Cholesterol LDL Cholesterol, Calc HDL Cholesterol Lipase 1923 H Procalcitonin 0.03 Urine Color Yellow Urine Appearance Clear Urine pH 8.0 Normal Ur Specific [place] 1.015 Urine Protein 1+ H Urine Glucose (UA) Negative Urine Ketones Negative Urine Occult Blood Trace-intact Urine Nitrate Negative Urine Bilirubin Negative Urine Urobilinogen 0.2 Ur Leukocyte Esterase Negative Urine RBC 0-1/hpf Urine WBC 0-1/hpf Ur Squamous Epith Cells 0-1 /hpf Urine Bacteria Occasional (0-1) Ur Culture Indicated? Cult not indicated Vol Urine Centrifuged 10ml (spun) Nasal Screen MRSA (PCR) Salicylates < 1.0 U Opiates 300ng/mL cut Negative Ur Oxycodone Screen Negative Urine Methadone Screen Positive H Acetaminophen < 10 Ur Barbiturates Screen Negative U Tricyclic Antidepress Negative Ur Phencyclidine Scrn Negative Ur Amphetamines Screen Negative U Methamphetamines Scrn Negative Ur MDMA Scrn (Ecstasy) Negative U Benzodiazepines Scrn Negative Urine Cocaine Screen Negative U Marijuana (THC) Screen Positive H Urine Specific [place] Normal Ethyl Alcohol < 10 Ur Creatinine Normal 09/02/23 09/02/23 09/02/23 17:51 20:46 20:46 WBC 8.8 RBC 4.27 L Hgb 11.8 L Hct 35.3 L MCV 82.7 MCH 27.7 MCHC 33.5 RDW 14.1 Plt Count 240 Neut % (Auto) 89.1 H Lymph % (Auto) 4.8 L [place] % (Auto) 4.6 Eos % (Auto) 0.6 L Baso % (Auto) 0.9 Neut # (Auto) 7800 H Lymph # (Auto) 400 L [place] # (Auto) 400 Eos # (Auto) 100 Baso # (Auto) 100 PT INR APTT Sample Site ABG Sample Site Right radial ABG pH 7.46 H ABG pCO2 43.7 ABG pO2 114 H ABG HCO3 31 H ABG Total CO2 32 H ABG O2 Saturation 99 ABG Base Excess 7.0 H FiO2 50 Sodium 137 Potassium 3.6 Chloride 106 Carbon Dioxide 29 BUN 17 Creatinine 0.88 Estimated GFR > 60 BUN/Creatinine Ratio 19.3 Glucose 111 H Lactate Calcium 8.5 Magnesium Total Bilirubin 0.7 AST 31 ALT 16 Alkaline Phosphatase 110 Total Creatine Kinase Troponin I NT-Pro-B Natriuret Pep Total Protein 6.7 Albumin 3.9 Globulin 2.8 Albumin/Globulin Ratio 1.4 Triglycerides 111 112 Cholesterol 115 L LDL Cholesterol, Calc 47 HDL Cholesterol 46 Lipase Procalcitonin 0.08 Urine Color Urine Appearance Urine pH Ur Specific [place] Urine Protein Urine Glucose (UA) Urine Ketones Urine Occult Blood Urine Nitrate Urine Bilirubin Urine Urobilinogen Ur Leukocyte Esterase Urine RBC Urine WBC Ur Squamous Epith Cells Urine Bacteria Ur Culture Indicated? Vol Urine Centrifuged Nasal Screen MRSA (PCR) Salicylates U Opiates 300ng/mL cut Ur Oxycodone Screen Urine Methadone Screen Acetaminophen Ur Barbiturates Screen U Tricyclic Antidepress Ur Phencyclidine Scrn Ur Amphetamines Screen U Methamphetamines Scrn Ur MDMA Scrn (Ecstasy) U Benzodiazepines Scrn Urine Cocaine Screen U Marijuana (THC) Screen Urine Specific [place] Ethyl Alcohol Ur Creatinine 0509/02/23 09/03/23 22:30 23:12 04:14 WBC RBC Hgb Hct MCV MCH MCHC RDW Plt Count Neut % (Auto) Lymph % (Auto) [place] % (Auto) Eos % (Auto) Baso % (Auto) Neut # (Auto) Lymph # (Auto) [place] # (Auto) Eos # (Auto) Baso # (Auto) PT INR APTT Sample Site N ABG Sample Site Right radial ABG pH 7.50 H ABG pCO2 36.6 ABG pO2 76 L ABG HCO3 29 H ABG Total CO2 30 H ABG O2 Saturation 96 ABG Base Excess 5.0 H FiO2 40 Sodium Potassium Chloride Carbon Dioxide BUN Creatinine Estimated GFR BUN/Creatinine Ratio Glucose Lactate Calcium Magnesium 2.1 Total Bilirubin AST ALT Alkaline Phosphatase Total Creatine Kinase Troponin I NT-Pro-B Natriuret Pep Total Protein Albumin Globulin Albumin/Globulin Ratio Triglycerides Cholesterol LDL Cholesterol, Calc HDL Cholesterol Lipase 353 H D Procalcitonin Urine Color Urine Appearance Urine pH Ur Specific [place] Urine Protein Urine Glucose (UA) Urine Ketones Urine Occult Blood Urine Nitrate Urine Bilirubin Urine Urobilinogen Ur Leukocyte Esterase Urine RBC Urine WBC Ur Squamous Epith Cells Urine Bacteria Ur Culture Indicated? Vol Urine Centrifuged Nasal Screen MRSA (PCR) Not detected Salicylates U Opiates 300ng/mL cut Ur Oxycodone Screen Urine Methadone Screen Acetaminophen Ur Barbiturates Screen U Tricyclic Antidepress Ur Phencyclidine Scrn Ur Amphetamines Screen U Methamphetamines Scrn Ur MDMA Scrn (Ecstasy) U Benzodiazepines Scrn Urine Cocaine Screen U Marijuana (THC) Screen Urine Specific [place] Ethyl Alcohol Ur Creatinine Exam Vital Signs (past 8 hours): - 09/03/23 03:00 09/03/23 03:46 09/03/23 04:00 Temperature 97.9 F 97.9 F 98.1 F Pulse Rate 50 L 49 L 48 L Respiratory Rate 14 16 17 Blood Pressure 110/56 L 112/56 L 112/59 L Pulse Oximetry 98 98 96 Oxygen Delivery Method Fraction of Inspired Oxygen 40 40 40 09/03/23 04:00 09/03/23 04:35 09/03/23 05:00 Temperature 98.1 F 98.1 F Pulse Rate 47 L 47 L Respiratory Rate 16 16 Blood Pressure 102/56 L 115/57 L Pulse Oximetry 95 95 Oxygen Delivery Method Mechanical Ventilation Fraction of Inspired Oxygen 40 40 09/03/23 06:00 Temperature 98.1 F Pulse Rate 48 L Respiratory Rate 14 Blood Pressure 110/55 L Pulse Oximetry 96 Oxygen Delivery Method Fraction of Inspired Oxygen 40 Fraction of Inspired Oxygen 40 Oxygen Delivery Method Mechanical Ventilation Quality TeleICU VTE Deep Vein Thrombosis/Pulmonary Embolism Present on Admission: No
[2023-09-03] MEDS: FUROSEMIDE 40 MG/4 ML VIAL IV (10:30)
[2023-09-03] MEDS: AZTREONAM 2 GM in SODIUM CHLORIDE 0.9% 100 ML IV ×2 (10:37→17:59)
[2023-09-03] MEDS: dexmedeTOMIDine in 0.9 % NaCL 400 MCG/100 ML PLAST..BAG 10.433 MCG IV (10:59)
[2023-09-03 11:30] LABS: Alanine Aminotransferase 14 IU/L (<50); Albumin 3.5 g/dL (3.5-5.0); Albumin Globulin Ratio 1.3 (1.0-2.8); Alkaline Phosphatase 87 U/L (38-126); Aspartate Aminotransferase 27 IU/L (17-59); BUN Creatinine Ratio 15.7 (6-22); Bilirubin Total 0.7 mg/dL (0.2-1.3); Blood Urea Nitrogen 14 mg/dL (9-20); Calcium 8.3 mg/dL (8.4-10.2); Carbon Dioxide 29 mmol/L (22-32); Chloride 110 mmol/L (98-107); Estimated Glomerular Filt Rate > 60 mL/min (>60); Globulin 2.7 g/dL (1.7-4.1); Glucose 92 mg/dL (80-110); HEMOLYSIS < 15 (0-50); Potassium 3.2 mmol/L (3.4-5.1); Sodium 140 mmol/L (137-145); Total Protein 6.2 g/dL (6.3-8.2)
[2023-09-03] MEDS: DOXYCYCLINE 100 MG in SODIUM CHLORIDE 0.9% 100 ML IV ×2 (11:40→22:20)
--- NOTE | 2023-09-03 12:50 | CM.DANOTE ---
DCP Brief Assessment Note Pt is a 68yo M presented after an accidental fentanyl overdose. Pt lives in an apartment with his spouse, Arianne, in [place]. PCP: [facility] Family Physican: Margaret Siegel Payer: [place] Medicare, Medicaid, and [facility] Reviewed chart and team rounds for pt's medical status and initial discharge needs. Per hospitalist, pt was intubated in the ED, has possible pneumonia. Per RN, plans to possibly extubate 09/03. FREELANCE ART DIRECTOR not able to meet with pt due to medical status, accumulated information from pt's most recent admission for an accidental fentanyl overdose on . Pt also recently presented to the ED on 08/12/2023 for hip pain. Pt has historically declined inpatient REY treatment. Pt doses methadone at [facility] and obtains some REY counseling there, per last admission. Per last admission, it was confirmed that pt is enrolled for Medicaid Transport benefit. Plan: Monitoring for pending plan of care. CM team will plan to follow clinical course closely for assessment of need and coordination of discharge plan. BERT Payne Discharge Planning/Care Management CM Discharge Assessment Start: 09/03/23 12:46 Freq: Status: Active Protocol: Document 09/03/23 12:46 MW (Rec: 09/03/23 12:50 MW [id number]) Discharge Planning Assessment Assigned Supervisor Alteration Workroom BERT Hammond DPOA/Assigned Designee Name Sister Rose Contact Information [phone] Advance Directives? Yes Advance Directives on File Yes History Provided By Patient,Medical Record Has Patient been admitted in last 30 No days? Comment Pt presented to the ED on 07/2023. Most recent admission was - for an accidental overdose. Prior Living Arrangements Apartment/Condo Household Members spouse Type of transporation used prior to Medicaid Transport admit Independent with ADL's Yes Is patient alert and oriented? No Discharge Plan Home Transportation Arrangement Pt identified needing assistance with setting up transport home with Medicaid transportation. Additional Comment Following for evolving Plan of Care. Whiteboard Updated in Patient Room with No name and ext. # of Supervisor Alteration Workroom Comment Brief/EMR assessment completed due to pt being intubated. Please Provide Date Initial DC 09/03/23 Assessment Was Performed Next Review Type Continued Stay Review
[2023-09-03] MEDS: POTASSIUM CHLORIDE 20 MEQ/15 ML UDC 40 MEQ PO (13:03)
--- NOTE | 2023-09-03 13:34 | PC.NURSE ---
1015 - Vent changed to pressure support, 04/07. Patient tolerating well until 1335, multiple episodes of apnea ventilation. RT contacted and placed back on full support. Patient non-responsive throughout shift. 40% FIO2 420 VT 18 RR 5 PEEP
--- NOTE | 2023-09-03 17:56 | PM.PN.1 ---
Subjective Subjective Interval history: Patient remains intubated. CXR showed RLL infiltrate and pulm edema, abx and lasix started. Exam Vital Signs (past 8 hours): - 09/03/23 11:00 09/03/23 11:13 09/03/23 11:15 Temperature 98.2 F 98.2 F 98.2 F Pulse Rate 54 L 54 L 55 L Respiratory Rate 16 22 23 Blood Pressure 129/63 Pulse Oximetry 93 93 93 Oxygen Delivery Method 09/03/23 11:30 09/03/23 11:30 09/03/23 11:45 Temperature 98.2 F 98.4 F Pulse Rate 52 L 50 L Respiratory Rate 23 22 Blood Pressure 139/68 Pulse Oximetry 93 94 Oxygen Delivery Method 09/03/23 12:00 09/03/23 12:00 09/03/23 12:00 Temperature 98.4 F Pulse Rate 50 L Respiratory Rate 21 Blood Pressure 130/62 Pulse Oximetry 95 Oxygen Delivery Method Mechanical Ventilation 09/03/23 12:15 09/03/23 12:30 09/03/23 12:30 Temperature 98.4 F 98.4 F Pulse Rate 50 L 49 L Respiratory Rate 20 21 Blood Pressure 133/63 Pulse Oximetry 96 95 Oxygen Delivery Method 09/03/23 12:45 09/03/23 13:00 09/03/23 13:00 Temperature 98.4 F 98.6 F Pulse Rate 49 L 49 L Respiratory Rate 20 24 Blood Pressure 139/65 Pulse Oximetry 96 95 Oxygen Delivery Method 09/03/23 13:15 09/03/23 13:30 09/03/23 13:30 Temperature 98.6 F 98.8 F Pulse Rate 52 L 52 L Respiratory Rate 23 20 Blood Pressure 136/64 Pulse Oximetry 94 95 Oxygen Delivery Method 09/03/23 13:45 09/03/23 14:00 09/03/23 14:00 Temperature 98.8 F 98.8 F Pulse Rate 49 L 47 L Respiratory Rate 18 18 Blood Pressure 139/65 Pulse Oximetry 94 95 Oxygen Delivery Method 09/03/23 14:15 09/03/23 14:30 09/03/23 14:30 Temperature 98.8 F 99.0 F Pulse Rate 47 L 47 L Respiratory Rate 18 18 Blood Pressure 145/69 H Pulse Oximetry 95 94 Oxygen Delivery Method 09/03/23 14:45 09/03/23 15:40 09/03/23 16:00 Temperature 99.0 F Pulse Rate 47 L 54 L Respiratory Rate 18 Blood Pressure 164/77 H Pulse Oximetry 95 Oxygen Delivery Method Mechanical Ventilation 09/03/23 16:17 Temperature Pulse Rate 65 Respiratory Rate Blood Pressure 160/74 H Pulse Oximetry Oxygen Delivery Method Fraction of Inspired Oxygen 40 Oxygen Delivery Method Mechanical Ventilation Narrative Exam Narrative: GEN: intubated and sedated, obese HEENT: moist mucous membranes, PERRL NECK: trachea midline, no JVD CV: regular rate and rhythm, no murmurs PULM: coarse breath sounds bilaterally ABD: soft, nontender, nondistended, no organomegaly EXT: warm and well perfused with 1-2+ edema of ankles Objective Labs 09/02/23 20:46 09/03/23 11:12 Labs: Laboratory Results - last 24 hr 09/02/23 09/02/23 09/02/23 17:07 17:51 20:46 WBC 8.8 RBC 4.27 L Hgb 11.8 L Hct 35.3 L MCV 82.7 MCH 27.7 MCHC 33.5 RDW 14.1 Plt Count 240 Neut % (Auto) 89.1 H Lymph % (Auto) 4.8 L [place] % (Auto) 4.6 Eos % (Auto) 0.6 L Baso % (Auto) 0.9 Neut # (Auto) 7800 H Lymph # (Auto) 400 L [place] # (Auto) 400 Eos # (Auto) 100 Baso # (Auto) 100 Sample Site ABG Sample Site Right radial ABG pH 7.46 H ABG pCO2 43.7 ABG pO2 114 H ABG HCO3 31 H ABG Total CO2 32 H ABG O2 Saturation 99 ABG Base Excess 7.0 H FiO2 50 Sodium 137 Potassium 3.6 Chloride 106 Carbon Dioxide 29 BUN 17 Creatinine 0.88 Estimated GFR > 60 BUN/Creatinine Ratio 19.3 Glucose 111 H Calcium 8.5 Magnesium Total Bilirubin 0.7 AST 31 ALT 16 Alkaline Phosphatase 110 Troponin I < 0.012 NT-Pro-B Natriuret Pep 491 H Total Protein 6.7 Albumin 3.9 Globulin 2.8 Albumin/Globulin Ratio 1.4 Triglycerides 111 Cholesterol LDL Cholesterol, Calc HDL Cholesterol Lipase Procalcitonin 0.03 Nasal Screen MRSA (PCR) 09/02/23 09/02/23 09/02/23 20:46 22:30 23:12 WBC RBC Hgb Hct MCV MCH MCHC RDW Plt Count Neut % (Auto) Lymph % (Auto) [place] % (Auto) Eos % (Auto) Baso % (Auto) Neut # (Auto) Lymph # (Auto) [place] # (Auto) Eos # (Auto) Baso # (Auto) Sample Site N ABG Sample Site Right radial ABG pH 7.50 H ABG pCO2 36.6 ABG pO2 76 L ABG HCO3 29 H ABG Total CO2 30 H ABG O2 Saturation 96 ABG Base Excess 5.0 H FiO2 40 Sodium Potassium Chloride Carbon Dioxide BUN Creatinine Estimated GFR BUN/Creatinine Ratio Glucose Calcium Magnesium Total Bilirubin AST ALT Alkaline Phosphatase Troponin I NT-Pro-B Natriuret Pep Total Protein Albumin Globulin Albumin/Globulin Ratio Triglycerides 112 Cholesterol 115 L LDL Cholesterol, Calc 47 HDL Cholesterol 46 Lipase Procalcitonin 0.08 Nasal Screen MRSA (PCR) Not detected 09/03/23 09/03/23 04:14 11:12 WBC RBC Hgb Hct MCV MCH MCHC RDW Plt Count Neut % (Auto) Lymph % (Auto) [place] % (Auto) Eos % (Auto) Baso % (Auto) Neut # (Auto) Lymph # (Auto) [place] # (Auto) Eos # (Auto) Baso # (Auto) Sample Site ABG Sample Site ABG pH ABG pCO2 ABG pO2 ABG HCO3 ABG Total CO2 ABG O2 Saturation ABG Base Excess FiO2 Sodium 140 Potassium 3.2 L Chloride 110 H Carbon Dioxide 29 BUN 14 Creatinine 0.89 Estimated GFR > 60 BUN/Creatinine Ratio 15.7 Glucose 92 Calcium 8.3 L Magnesium 2.1 2.0 Total Bilirubin 0.7 AST 27 ALT 14 Alkaline Phosphatase 87 Troponin I NT-Pro-B Natriuret Pep Total Protein 6.2 L Albumin 3.5 Globulin 2.7 Albumin/Globulin Ratio 1.3 Triglycerides Cholesterol LDL Cholesterol, Calc HDL Cholesterol Lipase 353 H D Procalcitonin Nasal Screen MRSA (PCR) [facility] Medical History Chronic neck and back pain Systolic congestive 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, NYHA class 1 Left hemiparesis Stroke Right rib fracture Coronary artery disease Hypertension Surgical History History of cholecystectomy Hx of fusion of cervical spine History of surgery on wrist History of shoulder surgery History of laparotomy Family History Father Parkinsons Mother Cancer Brother Cancer Sister No significant medical problems Social History household members: spouse Smoking Status: Former smoker alcohol intake: current substance use type: does not use Assessment & Plan Assessment & Plan narrative: Fentanyl overdose requiring intubation and mechanical ventilation. -Chest x-ray shows retrocardiac infiltrates. Procalcitonin negative. Suspect aspiration. -Continue mechanical ventilation with sedation of propofol and precedex. -daily SBT's -restart methadone in AM -start aztreonam and doxy to cover for possible aspiration PNA given CXR infiltrate in RLL Hypertension. -Restart amlodipine -hydralazine PRN CHF. -last echo july 2022 with EF 50-55%, hypokinesis -Continue with Coreg. Monitor for any fluid overload. DVT prophylaxis. -Enoxaparin GI prophylaxis. -Protonix. I spent a total of 35 minutes of critical care time on this patient's care today; this time is exclusive of procedural time. Dispo: ICU Time Spent With Patient Time with patient: 50 to 69 minutes with 50% spent counseling/coordinating care Quality VTE Deep Vein Thrombosis/Pulmonary Embolism Present on Admission: No
[2023-09-03] MEDS: LABETALOL 20 MG/4 ML SYRINGE 10 MG IV (18:19)
[2023-09-03] MEDS: AMLODIPINE 5 MG TABLET 10 MG PO (20:15)
[2023-09-03] MEDS: carvediloL 12.5 MG TABLET PO (20:16)
[2023-09-03] MEDS: dexmedeTOMIDine in 0.9 % NaCL 400 MCG/100 ML PLAST..BAG 5.216 MCG IV (20:32)
[2023-09-04] VITALS (109 sets, daily range): BP systolic 113–177; BP diastolic 28–81; PULSE 50–74; RESP 7–71; TEMP 36.6–37.8; O2SAT 92–100
[2023-09-04] MEDS: propofoL 1,000 MG/100 ML VIAL 12.519 MG IV (01:01)
[2023-09-04] MEDS: AZTREONAM 2 GM in SODIUM CHLORIDE 0.9% 100 ML IV (02:05)
[2023-09-04] MEDS: ALBUTEROL/IPRATROPIUM 3 ML AMPUL INH ×5 (02:10→19:01)
[2023-09-04] MEDS: HYDRALAZINE 20 MG/ML VIAL 10 MG IV (03:38)
[2023-09-04 05:23] LABS: Add Manual Diff / Slide Review NO; Basophils Absolute Auto 100 /uL (0-100); Basophils Percent Auto 1.5 % (0-2); Eosinophils Absolute Auto 300 /uL (0-450); Eosinophils Percent Auto 3.9 % (2-4); Hematocrit 38.4 % (41-53); Hemoglobin 12.9 g/dL (13.5-17.5); Lymphocytes Absolute Auto 600 /uL (1100-4500); Lymphocytes Percent Auto 8.3 % (25-40); Mean Corpuscular HGB Conc 33.7 % (30-36); Mean Corpuscular Hemoglobin 27.8 PG (26-34); Mean Corpuscular Volume 82.6 fL (80-100); Monocytes Absolute Auto 700 /uL (0-900); Monocytes Percent Auto 9.8 % (3-14); Neutrophils Absolute Auto 5600 /uL (1500-7000); Neutrophils Percent Auto 76.5 % (50-75); Platelet Count 234 X10^3/uL (150-400); Red Blood Cell Count 4.65 X10^6/uL (4.5-5.9); Red Cell Distribution Width 14.1 % (11.6-14.8); White Blood Cell Count 7.3 X10^3/uL (4.5-11.0)
[2023-09-04 05:26] LABS: BUN Creatinine Ratio 17.5 (6-22); Blood Urea Nitrogen 14 mg/dL (9-20); Calcium 8.9 mg/dL (8.4-10.2); Carbon Dioxide 31 mmol/L (22-32); Chloride 109 mmol/L (98-107); Estimated Glomerular Filt Rate > 60 mL/min (>60); Glucose 80 mg/dL (80-110); HEMOLYSIS 25 (0-50); Potassium 3.3 mmol/L (3.4-5.1); Sodium 140 mmol/L (137-145)
[2023-09-04] MEDS: CHLORHEXIDINE GLUCONATE 15 ML CUP PO (05:26)
[2023-09-04] MEDS: propofoL 1,000 MG/100 ML VIAL 15.649 MG IV (05:44)
[2023-09-04] MEDS: ENOXAPARIN 40 MG/0.4 ML SYRINGE SUBCUT (08:03)
[2023-09-04] MEDS: POTASSIUM CHLORIDE 20 MEQ/15 ML UDC 40 MEQ TUBE (08:03)
[2023-09-04] MEDS: CITALOPRAM 10 MG TABLET 20 MG PO (08:03)
[2023-09-04] MEDS: carvediloL 12.5 MG TABLET PO ×2 (08:03→20:39)
[2023-09-04] MEDS: PANTOPRAZOLE 40 MG VIAL IV (08:04)
[2023-09-04] MEDS: CEFEPIME 2 GM in SODIUM CHLORIDE 0.9% 100 ML IV ×2 (08:35→17:08)
--- NOTE | 2023-09-04 08:38 | CM.DPC ---
DCP Cont: Patient is still currently intubated. Will discuss case further at team rounds to see if he may potentially be extubated toda. It is noted that sister is DPOA. Resides with spouse. P: DCP to continue to follow for needs and resources when he is more medically stable. Jennie Duncan RN/Sales Special Agent
[2023-09-04 08:43] LABS: Alanine Aminotransferase 14 IU/L (<50); Albumin 3.8 g/dL (3.5-5.0); Albumin Globulin Ratio 1.3 (1.0-2.8); Alkaline Phosphatase 96 U/L (38-126); Aspartate Aminotransferase 34 IU/L (17-59); Bilirubin Total 0.8 mg/dL (0.2-1.3); Bilirubin Unconjugated 0.4 mg/dL (0.0-1.1); HEMOLYSIS 18 (0-50); Total Protein 6.8 g/dL (6.3-8.2)
[2023-09-04] MEDS: METHADONE INTENSOL 10 MG/ML ORAL.CONC 70 MG TUBE (08:50)
[2023-09-04] MEDS: ALBUTEROL 2.5 MG/3 ML NEB (ADULT) INH (09:04)
--- NOTE | 2023-09-04 10:01 | PC.NURSE ---
0800 - SAT started, patient passed and tolerating well. 0845 - Patient placed on pressure support, 5/, tolerating well. 0940 - ABG drawn by RT, patient still tolerating pressure support well, extubate per Dr Martino. 0955 - Patient extubated without issue, will continue to monitor.
[2023-09-04 10:39] LABS: pH ABG 7.45 (7.35-7.45)
[2023-09-04 10:40] LABS: Blood Gas Collection Site Right Brachial; Fractionated Inspired Oxygen 40; HCO3 ABG 26 mmol/L (23-27); Oxygen Saturation ABG 98 % (95-100); PCO2 ABG 36.8 mmHg (35-45); PO2 ABG 100 mmHg (80-100); TCO2 ABG 27 mmol/L (23-27)
[2023-09-04] MEDS: DOXYCYCLINE 100 MG in SODIUM CHLORIDE 0.9% 100 ML IV ×2 (10:50→22:24)
[2023-09-04] MEDS: dexmedeTOMIDine in 0.9 % NaCL 400 MCG/100 ML PLAST..BAG 9.8 MCG IV ×2 (12:48→22:24)
[2023-09-04] MEDS: POTASSIUM CHLORIDE 20 MEQ TAB 40 MEQ PO (12:48)
[2023-09-04] MEDS: predniSONE 20 MG TABLET 40 MG PO (12:48)
--- NOTE | 2023-09-04 14:03 | P.TELICUPN_ITS ---
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 Patient Location: ICU Provider location (State): [place] Other participants/roles: rn Interval history: pt seen this AM, was awake following commmands, extubated and doing well Current Medications Current Medications Medications: Home Medications acetaminophen 500 mg tablet 1,000 mg PO Q6H PRN Pain (Scale Score 1-3) 11/21/18 [History Confirmed 09/02/23] carvedilol 25 mg tablet 25 mg PO BID #60 tabs 01/11/22 [Rx Confirmed 09/02/23] amlodipine 5 mg tablet 5 mg PO BID #30 tabs 07/22/22 [Rx Confirmed 09/02/23] citalopram 20 mg tablet 20 mg PO DAILY 08/16/22 [History Confirmed 09/02/23] methadone 10 mg tablet 70 mg PO DAILY 07/12/23 [History Confirmed 09/02/23] albuterol sulfate 90 mcg/actuation aerosol inhaler (Ventolin HFA) 2 inhalation inhalation QID PRN shortness of breath or wheezing #6.7 grams 08/03/23 [Rx Confirmed 09/02/23] benzonatate 100 mg capsule 100 mg PO TID PRN cough #20 caps 08/03/23 [Rx Confirmed 09/02/23] fluticasone propionate 44 mcg/actuation HFA aerosol inhaler 44 mcg inhalation 09/02/23 [History] Visit Medications (administered) Generic Name Dose Route Start Last Admin Trade Name Freq PRN Reason Stop Dose Admin Albuterol/Ipratropium 3 ml 09/04/23 11:00 09/04/23 11:43 Albuterol/Ipratropium 3 Ml Ampul INH 3 ml [id number] CHRISTIANE Administration Amlodipine Besylate 10 mg 09/03/23 21:00 09/03/23 20:15 Amlodipine 5 Mg Tablet PO 10 mg BEDTIME CHRISTIANE Administration Carvedilol 12.5 mg 09/03/23 21:00 09/04/23 08:03 Carvedilol 12.5 Mg Tablet PO 12.5 mg BID CHRISTIANE Administration Citalopram Hydrobromide 20 mg 09/03/23 09:00 09/04/23 08:03 Citalopram 10 Mg Tablet PO 20 mg DAILY CHRISTIANE Administration Enoxaparin Sodium 40 mg 09/03/23 09:00 09/04/23 08:03 Enoxaparin 40 Mg/0.4 Ml Syringe SUBCUT 40 mg DAILY CHRISTIANE Administration Hydralazine HCl 10 mg 09/03/23 00:06 09/04/23 03:38 Hydralazine 20 Mg/Ml Vial IV 10 mg Q6HR PRN Administration SBP>= 160 or DBP >=110 Doxycycline Hyclate 100 mg/ 100 mls @ 100 mls/hr 09/03/23 10:15 09/04/23 10:50 Sodium Chloride IV 100 mls/hr Q12H CHRISTIANE Administration Cefepime HCl 2 gm/ Sodium 100 mls @ 200 mls/hr 09/04/23 08:30 09/04/23 08:35 Chloride IV 200 mls/hr Q8H CHRISTIANE Administration dexmedeTOMIDine in 0.9 % NaCL 400 mcg in 100 mls @ 4.9 mls/hr 09/04/23 12:45 09/04/23 12:48 Precedex IV 0.4 mcg/kg/hr TITRATE CHRISTIANE 9.8 mls/hr Administration Protocol 0.2 MCG/KG/HR Labetalol HCl 10 mg 09/03/23 18:08 09/03/23 18:19 Labetalol 20 Mg/4 Ml Syringe IV 10 mg Q4HR PRN Administration Heart Rate- High Prednisone 40 mg 09/04/23 11:00 09/04/23 12:48 Prednisone 20 Mg Tablet PO 09/08/23 09:01 40 mg DAILY CHRISTIANE Administration Objective Ventilator Parameters: Ventilator Settings FiO2 40 RT Vent Frequency 18 Ventilator Tidal Volume 420 Exhaled Vt/kg IBW 5.5 Positive End Expiratory 5 Pressure Ventilator Pressure Support 10 Inspiratory Phase Time 0.8 I:E Ratio 1:3.2 Patient Position HOB >= 30 degrees Labs 09/06/23 04:19 09/06/23 04:19 Labs: Laboratory Results - last 24 hr 09/04/23 09/04/23 04:27 09:45 WBC 7.3 RBC 4.65 Hgb 12.9 L Hct 38.4 L MCV 82.6 MCH 27.8 MCHC 33.7 RDW 14.1 Plt Count 234 Neut % (Auto) 76.5 H Lymph % (Auto) 8.3 L [place] % (Auto) 9.8 Eos % (Auto) 3.9 Baso % (Auto) 1.5 Neut # (Auto) 5600 Lymph # (Auto) 600 L [place] # (Auto) 700 Eos # (Auto) 300 Baso # (Auto) 100 ABG Sample Site Right brachial ABG pH 7.45 ABG pCO2 36.8 ABG pO2 100 ABG HCO3 26 ABG Total CO2 27 ABG O2 Saturation 98 ABG Base Excess 2.0 FiO2 40 Sodium 140 Potassium 3.3 L Chloride 109 H Carbon Dioxide 31 BUN 14 Creatinine 0.80 Estimated GFR > 60 BUN/Creatinine Ratio 17.5 Glucose 80 Calcium 8.9 Total Bilirubin 0.8 Conjugated Bilirubin 0.0 Unconjugated Bilirubin 0.4 AST 34 ALT 14 Alkaline Phosphatase 96 Total Protein 6.8 Albumin 3.8 Globulin 3.0 Albumin/Globulin Ratio 1.3 Exam Vital Signs (past 8 hours): - 09/04/23 06:15 09/04/23 06:30 09/04/23 06:30 Temperature 98.4 F 98.2 F Pulse Rate 51 L 51 L Respiratory Rate 18 13 Blood Pressure 113/59 L Pulse Oximetry 95 95 Oxygen Delivery Method Oxygen Flow Rate 09/04/23 06:45 09/04/23 07:00 09/04/23 07:00 Temperature 98.2 F 98.1 F Pulse Rate 50 L 52 L Respiratory Rate 25 H 18 Blood Pressure 154/72 H Pulse Oximetry 97 98 Oxygen Delivery Method Oxygen Flow Rate 09/04/23 07:15 09/04/23 07:30 09/04/23 07:30 Temperature 97.9 F 97.9 F Pulse Rate 52 L 55 L Respiratory Rate 26 H 18 Blood Pressure 159/76 H Pulse Oximetry 98 97 Oxygen Delivery Method Oxygen Flow Rate 09/04/23 07:45 09/04/23 08:00 09/04/23 08:00 Temperature 97.9 F 97.9 F Pulse Rate 56 L 57 L Respiratory Rate 18 26 H Blood Pressure 160/75 H Pulse Oximetry 99 98 Oxygen Delivery Method Oxygen Flow Rate 09/04/23 08:00 09/04/23 08:15 09/04/23 08:30 Temperature 98.1 F 98.1 F Pulse Rate 57 L 57 L Respiratory Rate 18 18 Blood Pressure Pulse Oximetry 99 97 Oxygen Delivery Method Mechanical Ventilation Oxygen Flow Rate 09/04/23 08:30 09/04/23 08:45 09/04/23 08:55 Temperature 98.2 F Pulse Rate 57 L Respiratory Rate 18 Blood Pressure 143/68 H Pulse Oximetry 97 95 Oxygen Delivery Method Oxygen Flow Rate 09/04/23 09:00 09/04/23 09:00 09/04/23 09:15 Temperature 98.2 F 98.2 F Pulse Rate 60 60 Respiratory Rate 49 H 24 Blood Pressure 144/67 H Pulse Oximetry 99 99 Oxygen Delivery Method Oxygen Flow Rate 09/04/23 09:30 09/04/23 09:30 09/04/23 09:45 Temperature 98.4 F 98.4 F Pulse Rate 60 72 Respiratory Rate 18 71 H Blood Pressure 133/68 Pulse Oximetry 98 98 Oxygen Delivery Method Oxygen Flow Rate 09/04/23 10:00 09/04/23 10:00 09/04/23 10:15 Temperature 98.6 F Pulse Rate 67 63 Respiratory Rate 57 H 22 Blood Pressure 125/62 Pulse Oximetry 94 93 Oxygen Delivery Method Nasal Cannula Oxygen Flow Rate 5 09/04/23 11:43 09/04/23 12:00 Temperature Pulse Rate 68 Respiratory Rate 26 H Blood Pressure Pulse Oximetry 97 Oxygen Delivery Method Nasal Cannula Nasal Cannula Oxygen Flow Rate 4 Fraction of Inspired Oxygen 40 SaO2/FiO2 Ratio 245 Oxygen Delivery Method Nasal Cannula Oxygen Flow Rate 4 Narrative Exam Narrative: awake doing well on PSV 5/5 rate controlled Quality TeleICU VTE Deep Vein Thrombosis/Pulmonary Embolism Present on Admission: No Assessment & Plan Assessment and plan (1) Acute neuromuscular respiratory failure: Problem details: due to fentanyl abuse Status: Acute (2) Congestive heart failure: Status: Acute (3) Accidental fentanyl overdose: Status: Acute Assessment & Plan narrative: extubated this AM cont NC map goal >65 coreg adat trend labs cont lasix goal negative balance cont methadone #ICU best practices -Protonix stress ulcer prophylaxis -Enoxaparin VTE chemoprophylaxis I spent a total of 35 minutes of aggregate critical care time on this patient's care today exclusive of procedural time.
--- NOTE | 2023-09-04 19:25 | P.PN_ITS ---
Subjective Subjective Interval history: Patient successfully extubated this AM. He states he is feeling better. Has wet cough. Was febrile overnight to 100.9F. Exam Vital Signs (past 8 hours): - 09/04/23 11:30 09/04/23 11:30 09/04/23 11:43 Temperature 98.8 F Pulse Rate 60 68 Respiratory Rate 34 H 26 H Blood Pressure 128/64 Pulse Oximetry 94 97 Oxygen Delivery Method Nasal Cannula Oxygen Flow Rate 4 09/04/23 11:45 09/04/23 12:00 09/04/23 12:00 Temperature 98.8 F Pulse Rate 61 Respiratory Rate 42 H Blood Pressure 134/64 Pulse Oximetry 96 Oxygen Delivery Method Nasal Cannula Oxygen Flow Rate 09/04/23 12:00 09/04/23 12:15 09/04/23 12:30 Temperature 98.8 F 99.0 F 98.8 F Pulse Rate 58 L 58 L 63 Respiratory Rate 31 H 38 H 36 H Blood Pressure Pulse Oximetry 94 96 96 Oxygen Delivery Method Oxygen Flow Rate 09/04/23 12:30 09/04/23 12:45 09/04/23 13:00 Temperature 99.0 F Pulse Rate 70 Respiratory Rate 58 H Blood Pressure 126/67 131/62 Pulse Oximetry 92 Oxygen Delivery Method Oxygen Flow Rate 09/04/23 13:00 09/04/23 13:15 09/04/23 13:30 Temperature 99.0 F 99.1 F 99.1 F Pulse Rate 68 64 65 Respiratory Rate 38 H 49 H 32 H Blood Pressure Pulse Oximetry 94 93 94 Oxygen Delivery Method Oxygen Flow Rate 09/04/23 13:38 09/04/23 13:38 09/04/23 13:45 Temperature 99.3 F 99.3 F Pulse Rate 64 61 Respiratory Rate 28 H 36 H Blood Pressure 129/66 Pulse Oximetry 95 93 Oxygen Delivery Method Oxygen Flow Rate 09/04/23 14:00 09/04/23 14:00 09/04/23 14:15 Temperature 99.3 F 99.5 F Pulse Rate 60 58 L Respiratory Rate 25 H 23 Blood Pressure 120/62 Pulse Oximetry 93 95 Oxygen Delivery Method Oxygen Flow Rate 09/04/23 14:30 09/04/23 14:30 09/04/23 14:45 Temperature 99.5 F 99.5 F Pulse Rate 57 L 57 L Respiratory Rate 21 22 Blood Pressure 134/63 Pulse Oximetry 95 97 Oxygen Delivery Method Oxygen Flow Rate 09/04/23 15:00 09/04/23 15:00 09/04/23 15:15 Temperature 99.5 F 99.5 F Pulse Rate 57 L 58 L Respiratory Rate 21 22 Blood Pressure 135/66 Pulse Oximetry 95 98 Oxygen Delivery Method Oxygen Flow Rate 09/04/23 15:30 09/04/23 15:31 09/04/23 15:31 Temperature 99.5 F 99.5 F Pulse Rate 59 L 59 L Respiratory Rate 24 21 Blood Pressure 151/71 H Pulse Oximetry 95 94 Oxygen Delivery Method Oxygen Flow Rate 09/04/23 15:45 09/04/23 15:50 09/04/23 16:00 Temperature 99.5 F Pulse Rate 61 60 Respiratory Rate 21 20 Blood Pressure Pulse Oximetry 97 97 Oxygen Delivery Method Nasal Cannula Nasal Cannula Oxygen Flow Rate 4 09/04/23 16:00 09/04/23 16:00 09/04/23 16:15 Temperature 99.5 F 99.7 F H Pulse Rate 65 61 Respiratory Rate 20 18 Blood Pressure 161/75 H Pulse Oximetry 97 97 Oxygen Delivery Method Oxygen Flow Rate 09/04/23 16:30 09/04/23 16:30 09/04/23 16:45 Temperature 99.7 F H 99.7 F H Pulse Rate 63 62 Respiratory Rate 20 17 Blood Pressure 137/68 Pulse Oximetry 97 97 Oxygen Delivery Method Oxygen Flow Rate 09/04/23 17:00 09/04/23 17:00 09/04/23 17:15 Temperature 99.5 F 99.5 F Pulse Rate 63 62 Respiratory Rate 19 17 Blood Pressure 138/67 Pulse Oximetry 96 97 Oxygen Delivery Method Oxygen Flow Rate 09/04/23 17:30 09/04/23 17:30 09/04/23 17:45 Temperature 99.5 F 99.7 F H Pulse Rate 72 74 Respiratory Rate 33 H 34 H Blood Pressure 145/73 H Pulse Oximetry 96 95 Oxygen Delivery Method Oxygen Flow Rate 09/04/23 18:00 09/04/23 18:00 09/04/23 19:01 Temperature 99.7 F H Pulse Rate 66 67 Respiratory Rate 22 27 H Blood Pressure 135/65 Pulse Oximetry 92 98 Oxygen Delivery Method Nasal Cannula Oxygen Flow Rate 4 Fraction of Inspired Oxygen 40 SaO2/FiO2 Ratio 245 Oxygen Delivery Method Nasal Cannula Oxygen Flow Rate 4 Narrative Exam Narrative: GEN: now extubated, calm and in NAD, obese HEENT: moist mucous membranes, PERRL NECK: trachea midline, no JVD CV: regular rate and rhythm, no murmurs PULM: coarse breath sounds bilaterally ABD: soft, nontender, nondistended, no organomegaly EXT: warm and well perfused with 1-2+ edema of ankles Objective Labs 09/04/23 04:27 09/04/23 04:27 Labs: Laboratory Results - last 24 hr 09/04/23 09/04/23 04:27 09:45 WBC 7.3 RBC 4.65 Hgb 12.9 L Hct 38.4 L MCV 82.6 MCH 27.8 MCHC 33.7 RDW 14.1 Plt Count 234 Neut % (Auto) 76.5 H Lymph % (Auto) 8.3 L [place] % (Auto) 9.8 Eos % (Auto) 3.9 Baso % (Auto) 1.5 Neut # (Auto) 5600 Lymph # (Auto) 600 L [place] # (Auto) 700 Eos # (Auto) 300 Baso # (Auto) 100 ABG Sample Site Right brachial ABG pH 7.45 ABG pCO2 36.8 ABG pO2 100 ABG HCO3 26 ABG Total CO2 27 ABG O2 Saturation 98 ABG Base Excess 2.0 FiO2 40 Sodium 140 Potassium 3.3 L Chloride 109 H Carbon Dioxide 31 BUN 14 Creatinine 0.80 Estimated GFR > 60 BUN/Creatinine Ratio 17.5 Glucose 80 Calcium 8.9 Total Bilirubin 0.8 Conjugated Bilirubin 0.0 Unconjugated Bilirubin 0.4 AST 34 ALT 14 Alkaline Phosphatase 96 Total Protein 6.8 Albumin 3.8 Globulin 3.0 Albumin/Globulin Ratio 1.3 PFSH Medical History Chronic neck and back pain Systolic congestive 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, NYHA class 1 Left hemiparesis Stroke Right rib fracture Coronary artery disease Hypertension Surgical History History of cholecystectomy Hx of fusion of cervical spine History of surgery on wrist History of shoulder surgery History of laparotomy Family History Father Parkinsons Mother Cancer Brother Cancer Sister No significant medical problems Social History household members: spouse Smoking Status: Former smoker alcohol intake: current substance use type: does not use Assessment & Plan Assessment & Plan narrative: Fentanyl overdose requiring intubation and mechanical ventilation due to hypoxic resp failure. Extubated 09/03. -Chest x-ray shows retrocardiac infiltrates. Procalcitonin negative. Suspect aspiration. -extubated on 09/03 to 4L NC -continue cefepime and doxy for possible aspiration PNA given CXR infiltrate in RLL -restart methadone -IV lasix Hypertension. -Restart amlodipine -hydralazine PRN CHF. -last echo july 2022 with EF 50-55%, hypokinesis -Continue with Coreg. -lasix as above DVT prophylaxis. -Enoxaparin GI prophylaxis. -Protonix. Dispo: 1-2 days pending weaning of O2 and treatment of pulm edema and possible PNA. Time Spent With Patient Time with patient: 50 to 69 minutes with 50% spent counseling/coordinating care Quality VTE Deep Vein Thrombosis/Pulmonary Embolism Present on Admission: No
--- NOTE | 2023-09-04 20:16 | PM.EICU.INT ---
Teleintensivist Intervention Date/Time Was camera activated?: Yes Issue(s) Addressed Other:: Round
--- NOTE | 2023-09-04 20:21 | PM.ICURNDS ---
- :: This patient was seen via real time interactive two-way audiovisual telecommunication. Note: Pt was extubated earlier today, on 2 L of NC, weaning off precedex, sleeping, continue to wean off precedex.
[2023-09-04] MEDS: AMLODIPINE 5 MG TABLET 10 MG PO (20:39)
[2023-09-05] VITALS (85 sets, daily range): BP systolic 127–161; BP diastolic 62–86; PULSE 50–81; RESP 14–74; TEMP 36.3–37.1; O2SAT 91–100
[2023-09-05] MEDS: CEFEPIME 2 GM in SODIUM CHLORIDE 0.9% 100 ML IV ×3 (00:16→16:28)
[2023-09-05 05:03] LABS: Add Manual Diff / Slide Review NO; Basophils Absolute Auto 0 /uL (0-100); Basophils Percent Auto 0.3 % (0-2); Eosinophils Absolute Auto 0 /uL (0-450); Hematocrit 35.9 % (41-53); Lymphocytes Absolute Auto 400 /uL (1100-4500); Lymphocytes Percent Auto 4.8 % (25-40); Mean Corpuscular HGB Conc 33.5 % (30-36); Mean Corpuscular Hemoglobin 27.8 PG (26-34); Mean Corpuscular Volume 83.2 fL (80-100); Monocytes Absolute Auto 400 /uL (0-900); Monocytes Percent Auto 5.3 % (3-14); Neutrophils Absolute Auto 6900 /uL (1500-7000); Neutrophils Percent Auto 89.6 % (50-75); Platelet Count 242 X10^3/uL (150-400); Red Blood Cell Count 4.32 X10^6/uL (4.5-5.9); Red Cell Distribution Width 13.9 % (11.6-14.8); White Blood Cell Count 7.7 X10^3/uL (4.5-11.0)
[2023-09-05 05:24] LABS: BUN Creatinine Ratio 22.9 (6-22); Blood Urea Nitrogen 19 mg/dL (9-20); Calcium 8.9 mg/dL (8.4-10.2); Carbon Dioxide 25 mmol/L (22-32); Chloride 112 mmol/L (98-107); Estimated Glomerular Filt Rate > 60 mL/min (>60); Glucose 134 mg/dL (80-110); HEMOLYSIS < 15 (0-50); Sodium 141 mmol/L (137-145)
[2023-09-05] MEDS: ALBUTEROL/IPRATROPIUM 3 ML AMPUL INH ×4 (07:10→18:03)
[2023-09-05] MEDS: dexmedeTOMIDine in 0.9 % NaCL 400 MCG/100 ML PLAST..BAG 9.8 MCG IV (07:20)
[2023-09-05] MEDS: ENOXAPARIN 40 MG/0.4 ML SYRINGE SUBCUT (08:12)
[2023-09-05] MEDS: predniSONE 20 MG TABLET 40 MG PO (08:12)
[2023-09-05] MEDS: CITALOPRAM 10 MG TABLET 20 MG PO (08:12)
[2023-09-05] MEDS: carvediloL 12.5 MG TABLET PO ×2 (08:12→20:07)
--- NOTE | 2023-09-05 08:12 | PM.PN.1 ---
Subjective Subjective Interval history: He is doing better. He has itchy skin and right foot pain. He does not remember any trauma to the foot. He is breathing well in his off oxygen. Exam Vital Signs (past 8 hours): - 09/05/23 00:15 09/05/23 00:30 09/05/23 00:30 Temperature 98.6 F 98.4 F Pulse Rate 62 62 Respiratory Rate 25 H 22 Blood Pressure 144/67 H Pulse Oximetry 97 97 Oxygen Delivery Method Oxygen Flow Rate Fraction of Inspired Oxygen 09/05/23 00:45 09/05/23 01:00 09/05/23 01:00 Temperature 98.4 F 98.2 F Pulse Rate 63 62 Respiratory Rate 22 23 Blood Pressure 130/62 Pulse Oximetry 94 94 Oxygen Delivery Method Oxygen Flow Rate Fraction of Inspired Oxygen 09/05/23 01:15 09/05/23 01:30 09/05/23 01:30 Temperature 98.2 F 98.2 F Pulse Rate 62 62 Respiratory Rate 26 H 18 Blood Pressure 141/63 H Pulse Oximetry 95 93 Oxygen Delivery Method Oxygen Flow Rate Fraction of Inspired Oxygen 09/05/23 01:45 09/05/23 02:00 09/05/23 02:00 Temperature 98.1 F 98.1 F Pulse Rate 61 61 Respiratory Rate 23 31 H Blood Pressure 133/65 Pulse Oximetry 94 95 Oxygen Delivery Method Oxygen Flow Rate Fraction of Inspired Oxygen 09/05/23 02:15 09/05/23 02:30 09/05/23 02:31 Temperature 98.1 F 97.9 F 97.9 F Pulse Rate 65 61 62 Respiratory Rate 20 22 18 Blood Pressure Pulse Oximetry 95 93 94 Oxygen Delivery Method Oxygen Flow Rate 2 2 2 Fraction of Inspired Oxygen 09/05/23 02:31 09/05/23 02:45 09/05/23 03:00 Temperature 97.9 F Pulse Rate 61 Respiratory Rate 18 Blood Pressure 150/67 H 137/71 Pulse Oximetry 95 Oxygen Delivery Method Oxygen Flow Rate 2 Fraction of Inspired Oxygen 09/05/23 03:00 09/05/23 03:15 09/05/23 03:30 Temperature 97.9 F 97.9 F Pulse Rate 61 63 Respiratory Rate 30 H 42 H Blood Pressure 132/66 Pulse Oximetry 95 95 Oxygen Delivery Method Oxygen Flow Rate Fraction of Inspired Oxygen 09/05/23 03:30 09/05/23 03:45 09/05/23 04:00 Temperature 97.9 F 97.9 F Pulse Rate 62 62 Respiratory Rate 36 H 32 H Blood Pressure Pulse Oximetry 94 94 Oxygen Delivery Method Nasal Cannula Oxygen Flow Rate Fraction of Inspired Oxygen 09/05/23 04:00 09/05/23 04:00 09/05/23 04:15 Temperature 97.9 F 97.7 F Pulse Rate 60 62 Respiratory Rate 18 52 H Blood Pressure 145/72 H Pulse Oximetry 94 95 Oxygen Delivery Method Oxygen Flow Rate Fraction of Inspired Oxygen 09/05/23 04:30 09/05/23 04:30 09/05/23 04:45 Temperature 97.7 F 97.5 F L Pulse Rate 60 59 L Respiratory Rate 24 22 Blood Pressure 149/72 H Pulse Oximetry 95 96 Oxygen Delivery Method Oxygen Flow Rate Fraction of Inspired Oxygen 09/05/23 05:00 09/05/23 05:00 09/05/23 05:15 Temperature 97.5 F L 97.5 F L Pulse Rate 60 60 Respiratory Rate 24 21 Blood Pressure 153/73 H Pulse Oximetry 96 95 Oxygen Delivery Method Oxygen Flow Rate Fraction of Inspired Oxygen 09/05/23 05:30 09/05/23 05:30 09/05/23 05:45 Temperature 97.3 F L 97.5 F L Pulse Rate 59 L 59 L Respiratory Rate 21 21 Blood Pressure 151/76 H Pulse Oximetry 96 96 Oxygen Delivery Method Oxygen Flow Rate Fraction of Inspired Oxygen 09/05/23 06:00 09/05/23 06:00 09/05/23 06:00 Temperature 97.5 F L 97.5 F L Pulse Rate 70 70 Respiratory Rate 17 58 H Blood Pressure 153/86 H 153/86 H Pulse Oximetry 94 94 Oxygen Delivery Method Oxygen Flow Rate 4 Fraction of Inspired Oxygen 09/05/23 07:10 Temperature Pulse Rate 61 Respiratory Rate 22 Blood Pressure Pulse Oximetry 94 Oxygen Delivery Method Room Air Oxygen Flow Rate 0 Fraction of Inspired Oxygen 21 Fraction of Inspired Oxygen 21 SaO2/FiO2 Ratio 447 Oxygen Delivery Method Room Air Oxygen Flow Rate 0 Narrative Exam Narrative: NAD, alert and oriented. Fluent speech. Lungs are clear, normal rate and effort. Heart is regular, no murmur gallop or rub. Abdomen is soft, non distended. Extremities are free of edema. Right foot is free of edema, or ecchymosis. There is no focal tenderness although he notes that the 2nd toe is the most painful area. No deformity. Objective Labs 09/05/23 04:18 09/05/23 04:18 Labs: Laboratory Results - last 24 hr 09/04/23 09/04/23 09/05/23 04:27 09:45 04:18 WBC 7.7 RBC 4.32 L Hgb 12.0 L Hct 35.9 L MCV 83.2 MCH 27.8 MCHC 33.5 RDW 13.9 Plt Count 242 Neut % (Auto) 89.6 H Lymph % (Auto) 4.8 L [place] % (Auto) 5.3 Eos % (Auto) 0.0 L Baso % (Auto) 0.3 Neut # (Auto) 6900 Lymph # (Auto) 400 L [place] # (Auto) 400 Eos # (Auto) 0 Baso # (Auto) 0 ABG Sample Site Right brachial ABG pH 7.45 ABG pCO2 36.8 ABG pO2 100 ABG HCO3 26 ABG Total CO2 27 ABG O2 Saturation 98 ABG Base Excess 2.0 FiO2 40 Sodium 141 Potassium 4.0 Chloride 112 H Carbon Dioxide 25 BUN 19 Creatinine 0.83 Estimated GFR > 60 BUN/Creatinine Ratio 22.9 H Glucose 134 H Calcium 8.9 Total Bilirubin 0.8 Conjugated Bilirubin 0.0 Unconjugated Bilirubin 0.4 AST 34 ALT 14 Alkaline Phosphatase 96 Total Protein 6.8 Albumin 3.8 Globulin 3.0 Albumin/Globulin Ratio 1.3 PFSH Medical History Chronic neck and back pain Systolic congestive 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, NYHA class 1 Left hemiparesis Stroke Right rib fracture Coronary artery disease Hypertension Surgical History History of cholecystectomy Hx of fusion of cervical spine History of surgery on wrist History of shoulder surgery History of laparotomy Family History Father Parkinsons Mother Cancer Brother Cancer Sister No significant medical problems Social History household members: spouse Smoking Status: Former smoker alcohol intake: current substance use type: does not use Assessment & Plan Assessment & Plan narrative: Fentanyl overdose with respiratory failure, present on admission and improved. -Chest x-ray shows retrocardiac infiltrates. Procalcitonin negative. Suspect aspiration. -extubated on 09/03 to 4L NC -continue cefepime and doxy for possible aspiration PNA given CXR infiltrate in RLL. No changes today.-restarted methadone Aspiration pneumonia, present on admission and improving. -continue Abx. Acute hypoxic respiratory failure. Extubated 09/03. Present on admission and improving. Hypertension, stable. -Restart amlodipine -hydralazine PRN Chronic diastolic heart failure, stable. -last echo july 2022 with EF 50-55%, hypokinesis -Continue with Coreg. -lasix as above DVT prophylaxis. -Enoxaparin GI prophylaxis. -Protonix. Expected day of discharge is September 05. Quality VTE Deep Vein Thrombosis/Pulmonary Embolism Present on Admission: No
--- NOTE | 2023-09-05 08:32 | DI.RAD.S_ITS ---
PROCEDURE: XR FOOT RT 2V INDICATIONS: pain TECHNIQUE: 2 views of the foot were acquired. COMPARISON: [facility], , XR FOOT RT MIN 3V, 06/18/2018, 12:45. [facility], , FOOT 3V LEFT, 03/05/2017, 13:22. FINDINGS: Bones: No fractures identified. No dislocations. Moderate degenerative changes. No suspicious bony lesions. Soft tissues: No tibiotalar joint effusion. Achilles tendon appears normal. IMPRESSION: No acute bony abnormality. Moderate degenerative changes. Dictated by: Jared Mckeon M.D. on 09/05/2023 at 8:59 Approved by: Jared Mckeon M.D. on 09/05/2023 at 9:07
[2023-09-05] MEDS: METHADONE INTENSOL 10 MG/ML ORAL.CONC 70 MG PO (08:48)
--- NOTE | 2023-09-05 10:05 | DIET.CONS2 ---
Dietary Inpatient Consultation Note Admission Date: 09/02/2023 19:59 68 y M admitted for accidental fentanyl overdose. Nutrition consulted for on vent and NPO. Pt no longer on vent, has regular diet ordered. No recent weight loss or other nutrition needs noted per chart review. Will continue to monitor PO intakes. Diet: 09/04/23 Lunch General (Regular) Diet Diet Modifications: Food Texture: Level 7 - Regular Liquid Consistency: Level 0 - Thin Nutrition Percent Meal Consumed 100% 09/05/23 09:26 Electronically Signed by: Nolvia Villanueva 09/05/23 10:05 Clinical Dietitian [address] [id number]
[2023-09-05] MEDS: DOXYCYCLINE 100 MG in SODIUM CHLORIDE 0.9% 100 ML IV (10:18)
[2023-09-05] MEDS: ACETAMINOPHEN 325 MG TABLET 650 MG PO ×2 (10:21→21:16)
[2023-09-05] MEDS: METHADONE INTENSOL 10 MG/ML ORAL.CONC 30 MG PO (10:32)
[2023-09-05] MEDS: OXYCODONE IR 5 MG TABLET 10 MG PO ×3 (14:30→22:41)
--- NOTE | 2023-09-05 14:34 | CM.DPNOTE ---
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 Per hospitalist in morning rounds, anticipate dc 09/05 or 09/06. Breathing well off of oxygen after being extubated 09/03. Pt historically has denied REY resources from this CM team. Pt previously established with substance use treatment through [facility]. Plan: anticipate home tomorrow, transport with Medicaid transport liekly. CM team will arrange tomorrow. CM team will offer REY treatment resources as able. BERT Rose
--- NOTE | 2023-09-05 18:24 | PC.NURSE ---
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
[2023-09-05] MEDS: hydrOXYzine HCL 25 MG TABLET PO (20:07)
[2023-09-05] MEDS: AMLODIPINE 5 MG TABLET 10 MG PO (20:07)
[2023-09-05] MEDS: DOXYCYCLINE HYCLATE 100 MG TABLET PO (20:07)
[2023-09-06] VITALS (15 sets, daily range): BP systolic 156–173; BP diastolic 74–78; PULSE 55–83; RESP 14–59; TEMP 36.3–36.4; O2SAT 96–98
[2023-09-06] MEDS: CEFEPIME 2 GM in SODIUM CHLORIDE 0.9% 100 ML IV ×2 (00:27→08:29)
[2023-09-06] MEDS: OXYCODONE IR 5 MG TABLET 10 MG PO ×3 (02:38→10:50)
[2023-09-06] MEDS: hydrOXYzine HCL 25 MG TABLET PO (02:38)
[2023-09-06 04:54] LABS: Add Manual Diff / Slide Review NO; Basophils Absolute Auto 0 /uL (0-100); Basophils Percent Auto 0.4 % (0-2); Eosinophils Absolute Auto 200 /uL (0-450); Eosinophils Percent Auto 1.8 % (2-4); Hematocrit 36.6 % (41-53); Hemoglobin 12.3 g/dL (13.5-17.5); Lymphocytes Absolute Auto 800 /uL (1100-4500); Lymphocytes Percent Auto 8.6 % (25-40); Mean Corpuscular HGB Conc 33.5 % (30-36); Mean Corpuscular Volume 83.5 fL (80-100); Monocytes Absolute Auto 700 /uL (0-900); Monocytes Percent Auto 7.8 % (3-14); Neutrophils Absolute Auto 7300 /uL (1500-7000); Neutrophils Percent Auto 81.4 % (50-75); Platelet Count 269 X10^3/uL (150-400); Red Blood Cell Count 4.38 X10^6/uL (4.5-5.9); Red Cell Distribution Width 14.1 % (11.6-14.8); White Blood Cell Count 8.9 X10^3/uL (4.5-11.0)
[2023-09-06 05:05] LABS: BUN Creatinine Ratio 23.9 (6-22); Blood Urea Nitrogen 21 mg/dL (9-20); Calcium 8.9 mg/dL (8.4-10.2); Carbon Dioxide 26 mmol/L (22-32); Chloride 106 mmol/L (98-107); Estimated Glomerular Filt Rate > 60 mL/min (>60); Glucose 82 mg/dL (80-110); HEMOLYSIS < 15 (0-50); Potassium 3.6 mmol/L (3.4-5.1); Sodium 136 mmol/L (137-145)
[2023-09-06] MEDS: ALBUTEROL/IPRATROPIUM 3 ML AMPUL INH (08:27)
[2023-09-06] MEDS: DOXYCYCLINE HYCLATE 100 MG TABLET PO (08:30)
[2023-09-06] MEDS: predniSONE 20 MG TABLET 40 MG PO (08:30)
[2023-09-06] MEDS: CITALOPRAM 10 MG TABLET 20 MG PO (08:30)
[2023-09-06] MEDS: ENOXAPARIN 40 MG/0.4 ML SYRINGE SUBCUT (08:30)
[2023-09-06] MEDS: METHADONE INTENSOL 10 MG/ML ORAL.CONC 100 MG PO (08:31)
[2023-09-06] MEDS: carvediloL 12.5 MG TABLET PO (08:31)
--- NOTE | 2023-09-06 09:42 | P.DS_ITS ---
History of Present Illness History of Present Illness Date Patient Seen: 09/06/23 Time Patient Seen: 09:42 Chief complaint: OD Narrative: Per admitting provider, 68 years old male with history of hypertension, CVA, CHF presented to the ER with sudden onset of shortness of breath and chest pain after smoking fentanyl blues. Received 8 mg of Narcan from family with noted improvement of his mental status and was brought to the ER where he was intubated. Currently on mechanical ventilation. Laboratory shows WBC 7, creatinine 0.9, troponin negative, BNP 491, lipase 1923, procalcitonin 0.03, U tox positive for THC. Chest x-ray shows retrocardiac infiltrates. Discharge Providers Provider Date of admission: 09/02/23 19:59 Discharge Date: 09/06/23 Primary care physician: TERRA Matute Consults: 09/02/23 17:15 Consult to POLYMER SPECIALIST - Food Service Cashier Urgent Comment: 09/02/23 19:20 Consult to Tele-certified professional coder Routine Comment: Consulting Provider: Ilya Tele-intensivists Reason for consultation: Telephone Assembler services 09/02/23 19:25 Consult to Dietitian, Adult Routine Comment: Reason For Exam: Patient on Ventilator and NPO Discharge provider: Teofilo Whittintgon DO Summary Hospital Course Discharge Diagnosis: Fentanyl overdose with respiratory failure, present on admission and improved. Aspiration pneumonia, present on admission and improving. Acute hypoxic respiratory failure. Extubated /5. Present on admission and improving. Hypertension, stable. Chronic diastolic heart failure, stable. Hospital Course: This is a 68 year old male with PMH of diastolic heart failure, HTN who was admitted with acute hypoxic respiratory failure due to fentanyl overdose. He was intubated in the emergency room. He was able to be extubated after a couple of days. He was started on antibiotics for possible pneumonia, broadened to aspiration prevention and was also started on steroids for possible reactive airway. He was also diuresed slightly with IV furosemide. After extubation he was able to be weaned to room air. He was alert and had no complaints. He was discharged on another 3 days of steroids, and 3 days of antibiotics for possible bacterial pneumonia and reactive airways. Time Spent with Patient Time spent: Greater than 30 minutes Exam Vital Signs (past 8 hours): - 09/06/23 04:00 09/06/23 05:26 09/06/23 08:31 Temperature 97.3 F L Pulse Rate 62 64 Respiratory Rate 30 H Blood Pressure 164/76 H 173/78 H Pulse Oximetry 96 Oxygen Delivery Method Room Air Oxygen Flow Rate 0 Fraction of Inspired Oxygen 21 SaO2/FiO2 Ratio 466 Oxygen Delivery Method Room Air Oxygen Flow Rate 0 Narrative Exam Narrative: NAD, alert and oriented. Fluent speech. Lungs are clear, normal rate and effort. Heart is regular, no murmur gallop or rub. Abdomen is soft, non distended. Extremities are free of edema. Right foot is free of edema, or ecchymosis. There is no focal tenderness although he notes that the 2nd toe is the most painful area. No deformity. Objective Labs 09/06/23 04:19 09/06/23 04:19 Labs: Laboratory Results - last 24 hr 09/06/23 04:19 WBC 8.9 RBC 4.38 L Hgb 12.3 L Hct 36.6 L MCV 83.5 MCH 28.0 MCHC 33.5 RDW 14.1 Plt Count 269 Neut % (Auto) 81.4 H Lymph % (Auto) 8.6 L [place] % (Auto) 7.8 Eos % (Auto) 1.8 L Baso % (Auto) 0.4 Neut # (Auto) 7300 H Lymph # (Auto) 800 L [place] # (Auto) 700 Eos # (Auto) 200 Baso # (Auto) 0 Sodium 136 L Potassium 3.6 Chloride 106 Carbon Dioxide 26 BUN 21 H Creatinine 0.88 Estimated GFR > 60 BUN/Creatinine Ratio 23.9 H Glucose 82 Calcium 8.9 PFSH Medical History Chronic neck and back pain Systolic congestive 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, NYHA class 1 Left hemiparesis Stroke Right rib fracture Coronary artery disease Hypertension Surgical History History of cholecystectomy Hx of fusion of cervical spine History of surgery on wrist History of shoulder surgery History of laparotomy Family History Father Parkinsons Mother Cancer Brother Cancer Sister No significant medical problems Social History household members: spouse Smoking Status: Former smoker alcohol intake: current substance use type: does not use Discharge Plan Discharge Plan Patient Disposition: Home Provider Discharge Comment: You were admitted to the hospital with overdose of fentanyl. Treated for bacterial pneumonia and COPD exacerbation. Continue steroids and antibiotics, follow up with PCP to review hospitalization in a couple of weeks Discharge orders & Medications Prescriptions: New citalopram 10 mg Tablet 20 mg PO DAILY Qty: 30 0RF prednisone 20 mg Tablet 40 mg PO DAILY 3 Days Qty: 6 0RF cefdinir 300 mg capsule 300 mg PO BID 4 Days Qty: 8 0RF doxycycline hyclate 100 mg tablet 100 mg PO BID 4 Days Qty: 8 0RF Continued carvedilol 25 mg tablet 25 mg PO BID Qty: 60 0RF Rx Instructions: must administer with a meal/food amlodipine 5 mg tablet 5 mg PO BID Qty: 30 0RF albuterol sulfate [Ventolin HFA] 90 mcg/actuation HFA aerosol inhaler 2 inhalation INHALATION QID PRN (Reason: shortness of breath or wheezing) Qty: 6.7 0RF fluticasone propionate 44 mcg/actuation HFA aerosol inhaler 44 mcg inhalation BID albuterol sulfate 2.5 mg /3 mL (0.083 %) solution for nebulization 2.5 mg inhalation BEDTIME Arnuity Ellipta 100 mcg/actuation blister with device 1 inh inhalation DAILY methadone 10 mg Tablet 103 mg PO DAILY Patient Comments: Confirmed with Kamilla at [facility] 09/05/23 @ 10:00am Follow up/Referrals: Pat Pisano ARNP [Primary Care Provider] - Diet/Activity/Treatments Diet: Diet as Tolerated and Regular Activity: As tolerated, no restrictions Visit Report/Discharge Packet Instructions: DI for Heart Failure, DI for Pneumonia -- Adult, DI for Substance Use Disorder, DI for Prescription Opioid Use Stand Alone Forms: Congestive Heart Failure, Patient Portal/API, Stroke Signs & Symptoms Discharge Data Primary Care Provider: Pat Pisano Quality VTE Deep Vein Thrombosis/Pulmonary Embolism Present on Admission: No MIPS - DC The patient has a history of heart transplant or Left Ventricular Assist Device (LVAD). If yes, STOP here.: No The patient has current or prior documentation of left ventricular ejection fraction (LVEF) less than or equal to 40%, or moderate or severely depressed left ventricular systolic function.: No
--- NOTE | 2023-09-06 10:31 | PC.NURSE ---
Patient eager for discharge to home today, although states he will need help with transportation home. Case management assisting with discharge plan. Patient up in chair this morning, no new complaints. VSS. Call light within reach. Continue with plan of care.
--- NOTE | 2023-09-06 10:44 | CM.DPNOTE ---
Addendum entered by BERT Rose 09/06/23 10:53: From Jared(?) at [facility], [facility] transport will p/u pt at 11:30am at the ED entrance. EDUCATIONAL TECHNOLOGY COORDINATOR updated nursing staff and pt. all in agreement with plan. SL Original Note: DCP Note EDUCATIONAL TECHNOLOGY COORDINATOR reviewed EMR. Per hospitalist in morning multidisciplinary rounds, pt cleared for dc home today. Per RN, no new scripts needed at this time. EDUCATIONAL TECHNOLOGY COORDINATOR met with pt in room. Confirms needing medicaid transport home. Reports established with [facility] for drug use, and does not need any more resources. He reports really liking it there and enjoying working with them. Deny other CM needs. EDUCATIONAL TECHNOLOGY COORDINATOR completed and faxed NEMT form. (f [phone]). Transport time pending. P: home today, transport with medicaid transport, time pending. f/u with [facility]. CM team will continue to follow closely. BERT Rose
[2023-09-08 15:40] LABS: Osmolality, Serum 288 mOsmol/kg (280-301)
== END 2023-09-06 11:35 | disposition home or self-care (01) | DRG 917 ==
LOC: ED 18:03 → AC 20:02 → ICU 20:45
PROVIDERS: Internal Medicine; Internal Medicine Critical Care Medicine; Student in an Organized Health Care Education/Training Program; Admitting Provider Internal Medicine; Emergency Provider Emergency Medicine; Family Provider Family Medicine; PCP Nurse Practitioner Family; Referring Provider Emergency Medicine; Visit Provider Internal Medicine
DX: T40.411A Poisoning by fentanyl or fentanyl analogs, accidental (unintentional), initial encounter (principal); J69.0 Pneumonitis due to inhalation of food and vomit; J96.01 Acute respiratory failure with hypoxia; I50.32 Chronic diastolic (congestive) heart failure; J44.1 Chronic obstructive pulmonary disease with (acute) exacerbation; I25.10 Atherosclerotic heart disease of native coronary artery without angina pectoris; I11.0 Hypertensive heart disease with heart failure; Z87.891 Personal history of nicotine dependence
CPT/HCPCS: 31500; 36415; 36600; 70450; 71045; 73620; 80048; 80053; 80061; 80076; 80305; 80320; 80329; 81001; 82550; 82805; 83605; 83690; 83735; 83880; 83930; 84145; 84478; 84484; 85025; 85610; 85730; 87070; 87205; 87797; 93005; 94003; 94010; 94640; 94762; 94799; 96365; 96366; 96375; 99285; 99291; S0073; A9270; C9113; G0480; J0330; J0360; J0692; J1650; J1940; J2060; J2704; J3010; J7613

== ENCOUNTER → 2024-01-30 08:07 | Outpatient (CLI) | payer MEDICARE, MEDICAID, OTHER, SELFPAY ==
[2023-09-02 21:30] VITALS: BMI 31.1
[2023-09-04 08:50] VITALS: PULSE 54; RESP 18; O2SAT 95
[2024-01-30 09:06] LABS: Appearance Urine UA CLEAR; Bilirubin Urine UA NEGATIVE (NEGATIVE); Color Urine UA YELLOW; Glucose Urine UA NEGATIVE (Negative); Ketones Urine UA NEGATIVE (NEGATIVE); Leukocyte Esterase Urine UA NEGATIVE (NEGATIVE); Nitrite Urine UA NEGATIVE (Negative); Occult Blood Urine UA NEGATIVE (Negative); Protein Urine UA NEGATIVE (Negative); Specific Gravity Urine UA 1.025 (1.000-1.035); Urobilinogen Urine UA 0.2 E.U./dL (0.2)
[2024-01-30 09:07] LABS: Urine Volume 10mL (spun)
[2024-01-30 09:08] LABS: Bacteria Urine None Seen; Culture Indicated Urine Cult Not Indicated; RBC Urine None Seen (0-5/HPF); Squamous Epithelial Cell Urine None Seen (0-5/HPF); WBC Urine None Seen (0-5/HPF)
== END ==
PROVIDERS: Family Provider Family Medicine; PCP Nurse Practitioner Family; Referring Provider Orthopaedic Surgery; Visit Provider Orthopaedic Surgery
DX: N39.0 Urinary tract infection, site not specified (principal)
CPT/HCPCS: 81001

== ENCOUNTER 2024-03-01 08:36 | Day surgery (SDC) | payer MEDICARE, MEDICAID, OTHER, SELFPAY ==
[2023-09-02 21:30] VITALS: BMI 31.1
[2023-09-04 08:50] VITALS: PULSE 54; RESP 18; O2SAT 95
[2024-02-22 09:55] VITALS: BMI 36.8
[2024-03-01] VITALS (16 sets, daily range): BP systolic 91–189; BP diastolic 53–99; PULSE 53–78; RESP 12–18; TEMP 36.2–37; O2SAT 96–100; BMI 36.0; BMI 35.9
--- NOTE | 2024-03-01 | DI.RAD.S_ITS ---
PROCEDURE: XR PELVIS 1-2V INDICATIONS: INTEROP TOTAL HIP TECHNIQUE: 1 view of the lower pelvis acquired. COMPARISON: None. FINDINGS/IMPRESSION: Intraoperative plain film demonstrates right total hip arthroplasty trial hardware. Dictated by: Shaquille Peña M.D. on 03/01/2024 at 13:18 Approved by: Shaquille Peña M.D. on 03/01/2024 at 13:21
--- NOTE | 2024-03-01 06:00 | DI.RAD.S_ITS ---
PROCEDURE: XR HIP W PEL IF DONE RT 2V INDICATIONS: Right hip prostheses TECHNIQUE: AP pelvis with lateral view(s) of the right hip COMPARISON: 08/12/2023 FINDINGS: Bones: . No osseous abnormality. SI and hip joints: Right total hip prostheses is in near anatomic alignment. Moderate left hip degeneration noted Soft tissues: No soft tissue swelling, calcification or mass. IMPRESSION: Right hip prostheses unremarkable. Dictated by: Brian Friend M.D. on 03/02/2024 at 8:20 Approved by: Brian Friend M.D. on 03/02/2024 at 8:27
[2024-03-01] MEDS: ACETAMINOPHEN 325 MG TABLET 975 MG PO (09:38)
[2024-03-01] MEDS: LACTATED RINGERS 1,000 ML 42 ML IV (09:38)
[2024-03-01] MEDS: VANCOMYCIN 1,000 MG/200 ML PIGGYBACK 200 MG IV (09:39)
[2024-03-01 09:41] LABS: Add Manual Diff / Slide Review NO; Basophils Absolute Auto 100 /uL (0-100); Eosinophils Absolute Auto 200 /uL (0-450); Eosinophils Percent Auto 3.5 % (2-4); Hematocrit 33.8 % (41-53); Hemoglobin 11.4 g/dL (13.5-17.5); Lymphocytes Absolute Auto 500 /uL (1100-4500); Lymphocytes Percent Auto 10.1 % (25-40); Mean Corpuscular HGB Conc 33.8 % (30-36); Mean Corpuscular Hemoglobin 27.7 PG (26-34); Monocytes Absolute Auto 400 /uL (0-900); Monocytes Percent Auto 7.1 % (3-14); Neutrophils Absolute Auto 4200 /uL (1500-7000); Neutrophils Percent Auto 78.3 % (50-75); Platelet Count 235 X10^3/uL (150-400); Red Blood Cell Count 4.13 X10^6/uL (4.5-5.9); Red Cell Distribution Width 14.3 % (11.6-14.8); White Blood Cell Count 5.4 X10^3/uL (4.5-11.0)
--- NOTE | 2024-03-01 10:31 | PM.PREOP ---
Pre-operative Note Interval Note History & Physical reviewed/Exam performed by Physician: Yes Changes to H&P: No H&P completed within 30 days and has changed as indicated here:: Denies a history of any bleeding, does have history of a stroke and uses Plavix, no new acute medical problems, incapacitating right hip pain
--- NOTE | 2024-03-01 10:33 | P.OP_ITS ---
Operative Date/Time/Diagnoses Date of procedure: 03/01/24 Time of procedure: 11:00 Pre-op diagnosis: right hip avascular necrosis, hip OA Post-op diagnosis: same Procedure & Clinicians Procedure: Right total hip arthroplasty posterior approach Same procedure as scheduled: Yes Indications: The patient has had progressively worsening right hip pain with radiographic changes consistent with arthritis. Non-operative management has failed and the patient has requested total hip replacement. The risks, benefits and alternatives to surgery were discussed with the patient prior to proceeding. Risks discussed included, but were not limited to, failure to relieve pain, leg length discrepancy, dislocation, stiffness, infection, nerve damage, deep venous thrombosis, pulmonary embolism, stroke, coma, heart attack, permanent paralysis and , as well as the potential need for eventual revision of the prosthetic. Surgeon: Ciara Pradhan Demand Planning Manager: Juan David Madison Anesthesia Type: General Operative Notes Findings: Severe right hip OA, adequate bone, adequate stability Closure Type: primary Specimen(s): none sent Prosthetic devices, grafts, tissues, transplants, or devices: Pradhan and Nephew R3 size 50, neutral poly liner, polar stem size 3 standard offset,one 6.5 mm screw, 36 mm +0 cobalt chrome head Estimated Blood Loss (mL): 250 Blood products transfused: none Procedure in detail: The patient was seen in the pre-operative area, where the patient identified the right hip as the operative site and this was marked with my initials. The patient received pre-operative antibiotics and was taken to the operating room and placed on the operative table in the left lateral decubitus position after satisfactory anesthesia. A shark biologist out was performed. The right leg was prepared from the ankle to the iliac crest with ChloroPrep in the usual fashion and draped through sterile drapes. A PA was used during the procedure was essential for intraoperative retraction and safe implantation of the components. The hip was approached through an approximately 20 cm incision centered over the greater trochanter and curving gently posteriorly as it went proximally. This was carried sharply to the fascia brandon, which was divided and retracted with a self retaining retractor. The trochanteric bursa was excised with care being taken to avoid the sciatic nerve, which was identified and protected throughout the case. The short external rotators were incised and the capsulomuscular flap was raised and tagged for later repair. The hip was dislocated, and a femoral neck osteotomy performed approximately 15 mm above the lesser trochanter. Retractors were placed around the femur. The canal was opened with a box cutting osteotome, followed by a T handled reamer and a lateralizing reamer. The starter broach was then used, followed by sequential broaching until there was good stability of the broach in the femur. Retractors were placed to expose the acetabulum. The labrum and central soft ti ssues were removed. Reaming was performed initially going up in 2 mm increments, then 1 mm increments until good bite was obtained with an odd sized reamer. The cup 1 mm larger than the last reamer was then inserted using the appropriate anteversion guides. It was further stabilized with a single screw. A trial neutral liner was placed. The broach was placed in the canal. A trial head and neck were then placed and the hip relocated and checked for leg length and stability. An intraoperative film confirmed the component position and no evidence of fracture. The hip looked a little long and we subsequently tamped down the broach about 2-3 additional mm and then calcar planed. A repeat trial reduction was done. The patient was stable in the position of sleep, of squatting, and could be put through a range of motion with 45 degrees internal rotation without dislocation. At 90 degrees flexion, internal rotation to 80? was possible before dislocation. This was felt to be satisfactory and the appropriate components were opened, and the trials were removed. The acetabular liner was impacted into position. The final stem was then impacted into the prepared femoral canal. A brief Betadine soak and hydrogen peroxide was performed while trialing with head options. The hip was meticulously irrigated with normal saline. Finally the femoral head was impacted onto the stem. The acetabulum was cleared of all material and the hip relocated one final time. The capsulomuscular flap was then repaired to the greater trochanter though an awl hole using the tag sutures. The short external rotators were repaired with a nonabsorbable suture. The fascia brandon was closed with Vicryl. The subcutaneous layer was closed with barbed sutures and skin amira. A rhett dressing was applied and the patient was taken to recovery having tolerated the procedure well. Complications: none Post-operative Condition: stable Disposition: Acute Care Plan for aftercare: The patient will be maintained on a standard total hip replacement protocol with weight bearing as tolerated and posterior hip precautions. The patient will receive Plavix and sequential compression devices for DVT prophylaxis. The patient will be discharged home when safe for the home environment.
[2024-03-01] MEDS: ALBUTEROL/IPRATROPIUM 3 ML AMPUL INH (10:38)
[2024-03-01] MEDS: CLINDAMYCIN 900 MG/50 ML PIGGYBACK 50 MG IV (11:00)
[2024-03-01] MEDS: TRANEXAMIC ACID 1,000 MG VIAL 2000 MG INJ (11:05)
--- NOTE | 2024-03-01 11:35 | SUR.OPER ---
Lateral on padded OR bed. Gel axillary roll. Arms secured on padded armboard with pillow supporting top arm. Padded hip positioner braces x4 - anterior and posterior chest and pelvis. Additional gel pad used anterior pelvis. Gel pad under bottom leg from knee to foot and secured with tape over sheet.
[2024-03-01] MEDS: BUPIVACAINE 0.25% (PF) 60 ML, EPINEPHrine 0.3 MG INJ (11:43)
[2024-03-01] MEDS: BUPIVACAINE LIPOSOME 266 MG/20 ML VIAL INJ (11:44)
[2024-03-01] MEDS: HYDROMORPHONE 1 MG INJ IV ×3 (13:32→14:04)
[2024-03-01] MEDS: hydrOXYzine 50 MG/ML INJ IM (13:32)
[2024-03-01] MEDS: ALBUTEROL 2.5 MG/3 ML NEB (ADULT) INH (13:40)
[2024-03-01] MEDS: ONDANSETRON 4 MG/2 ML INJ IV (13:51)
[2024-03-01] MEDS: MEPERIDINE 50 MG/ML INJ 25 MG IV (13:52)
[2024-03-01] MEDS: OXYCODONE IR 5 MG TABLET PO (13:52)
--- NOTE | 2024-03-01 14:13 | SUR.PHASEI ---
Patient resting more comfortably after pain medication.
--- NOTE | 2024-03-01 15:22 | RT ---
Notice for Post-Op RT Eval and Treat. Patient still sleeping at this time. Hx of sleep apnea, non compliant, never user of NOC CPAP. Family at bedside states patient does not own a home CPAP. Patient placed on 1L NC at this time satting in upper 90's. Will come back to instruct patient on IS use when he is awake. Triage score does not call for further scheduled respiratory therapy at this time.
[2024-03-01] MEDS: LACTATED RINGERS 1,000 ML 100 ML IV (15:25)
[2024-03-01] MEDS: VANCOMYCIN 1,500 MG/300 ML PIGGYBACK 200 MG IV (15:25)
--- NOTE | 2024-03-01 16:22 | PT-IP ANOTE ---
PT consult received post-op. Checked in on pt who is sleeping soundly and not ready for PT assessment at this time. Con't efforts next date.
[2024-03-01] MEDS: carvediloL 12.5 MG TABLET 25 MG PO (22:01)
[2024-03-01] MEDS: DOCUSATE 100 MG CAPSULE PO (22:03)
[2024-03-01] MEDS: OXYCODONE IR 10 MG TABLET PO (22:05)
[2024-03-02] VITALS (8 sets, daily range): BP systolic 120–160; BP diastolic 57–82; PULSE 62–78; RESP 20; TEMP 36.9–38.3; O2SAT 96–100
[2024-03-02] MEDS: OXYCODONE IR 10 MG TABLET PO ×5 (03:52→19:48)
[2024-03-02] MEDS: ACETAMINOPHEN 325 MG TABLET 650 MG PO ×3 (03:52→19:48)
[2024-03-02] MEDS: LACTATED RINGERS 1,000 ML 100 ML IV (03:56)
[2024-03-02 05:00] LABS: Hematocrit 29.9 % (41-53); Hemoglobin 10.1 g/dL (13.5-17.5)
--- NOTE | 2024-03-02 06:37 | PM.PNPO.1 ---
Subjective Subjective Date Patient Seen: 03/02/24 Time Patient Seen: 06:37 Interval history: Pt lying in bed, awakens easily to voice, moaning in pain throughout exam. Has not been OOB yet. Exam Vital Signs (past 8 hours): - 03/01/24 23:00 Temperature 97.2 F L Pulse Rate 68 Respiratory Rate 18 Blood Pressure 136/75 Pulse Oximetry 99 Oxygen Flow Rate 5 Oxygen Delivery Method Nasal Cannula Oxygen Flow Rate 5 Narrative Exam Narrative: 4/5 hip flexors, quadriceps, hamstrings; 5/5 PF, DF, EHL on right. Sensation to light touch intact throughout RLE, calf soft and compressible. ALEX dressing CDI, not functioning. Objective Labs 03/02/24 04:18 Labs: Laboratory Results - last 24 hr 03/01/24 03/02/24 09:20 04:18 WBC 5.4 RBC 4.13 L Hgb 11.4 L 10.1 L Hct 33.8 L 29.9 L MCV 82.0 MCH 27.7 MCHC 33.8 RDW 14.3 Plt Count 235 Neut % (Auto) 78.3 H Lymph % (Auto) 10.1 L [place] % (Auto) 7.1 Eos % (Auto) 3.5 Baso % (Auto) 1.0 Neut # (Auto) 4200 Lymph # (Auto) 500 L [place] # (Auto) 400 Eos # (Auto) 200 Baso # (Auto) 100 Blood Type O Positive Antibody Screen Negative [facility] Medical History (Updated 02/22/24 @ 10:04 by Charity Villanueva RN) Overdose of fentanyl (09/02/23) Chronic neck and back pain Systolic congestive 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, NYHA class 1 Left hemiparesis Stroke Right rib fracture Coronary artery disease Hypertension Surgical History (Updated 03/02/24 @ 06:42 by Judit Sethi PA-C) History of cholecystectomy Hx of fusion of cervical spine History of surgery on wrist History of shoulder surgery History of laparotomy Family History Father Parkinsons Mother Cancer Brother Cancer Sister No significant medical problems Social History household members: spouse Smoking Status: Former smoker alcohol intake: former substance use type: does not use Assessment & Plan Post-op Assessment and plan (1) S/P total hip arthroplasty: Assessment and Plan narrative: 1) Plavix to restart today for VTE prophylaxis. Looks like he has h/o stroke. 2) On methadone, unsure from review of H&P but likely h/o opioid use disorder. Will likely be difficult to manage pain postoperatively. Methadone has been ordered, will continue maintenance with additional opioids as needed for acute post-surgical pain. 3) PT - WBAT to RLE, posterior hip precautions. 4) Possible discharge home tomorrow pending progress w/ PT today and pain control. Will attempt to contact PCP today for insight re pts pain management. Postoperative Procedures: Procedures Operation Date: 03/01/24 10:45 Actual Procedure Side Surgeon p Total Hip Arthroplasty Right Ciara Pradhan MD Postoperative day: 1 Quality VTE Deep Vein Thrombosis/Pulmonary Embolism Present on Admission: No
[2024-03-02] MEDS: HYDROMORPHONE 0.5 MG INJ IV ×2 (06:59→14:21)
[2024-03-02] MEDS: carvediloL 12.5 MG TABLET 25 MG PO ×2 (08:21→22:10)
[2024-03-02] MEDS: CITALOPRAM 10 MG TABLET 20 MG PO (08:21)
[2024-03-02] MEDS: LOSARTAN 25 MG TABLET PO (08:21)
[2024-03-02] MEDS: DOCUSATE 100 MG CAPSULE PO ×2 (08:22→22:11)
[2024-03-02] MEDS: CLOPIDOGREL 75 MG TABLET PO (08:22)
[2024-03-02] MEDS: PANTOPRAZOLE DR 40 MG TABLET PO (08:22)
[2024-03-02] MEDS: hydroCHLOROthiazide 25 MG TABLET 12.5 MG PO (08:22)
[2024-03-02] MEDS: polyethylene glycoL 3350 17 GM POWD.PACK PO (08:24)
[2024-03-02] MEDS: METHADONE INTENSOL 10 MG/ML ORAL.CONC 175 MG PO (08:27)
[2024-03-02] MEDS: BUDESONIDE 0.5 MG/2 ML NEB INH ×2 (09:13→19:48)
--- NOTE | 2024-03-02 10:00 | PT.IIE ---
Current Diagnoses Unilateral primary osteoarthritis, right hip (03/01/24) Presence of unspecified artificial hip joint (03/01/24) Surgery Performed Operation Date: 03/01/24 10:45 Actual Procedures p Total Hip Arthroplasty(Right) - Ciara Pradhan MD Surgical History (Last Reviewed 09/05/23 @ 08:12 by Yasir Huitron MD) History of cholecystectomy History of laparotomy History of shoulder surgery History of surgery on wrist Hx of fusion of cervical spine Medical History (Last Updated 02/22/24 @ 10:04 by Charity Villanueva RN) Chronic neck and back pain Coronary artery disease Hypertension Left hemiparesis Overdose of fentanyl (09/02/23) Right rib fracture Stroke Systolic congestive 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, NYHA class 1 Physical Therapy Inpatient Evaluation/Re-Eval M1 PT/OT-IP Prior Functional Status Start: 03/02/24 13:17 Freq: NEEDED Status: Active Protocol: Document 03/02/24 10:00 AB (Rec: 03/02/24 13:28 AB [id number]) Medical Review Prior Functional Status Medical History Reviewed Yes Communication able to make needs known Mobility and Gait pt stated that he was modified independent with all mobilities and ambulation using a formerly [facility] Activities of Daily Living and IADL's per OT note: Pt had difficulty with LB dressing needs and that his havin to assist him. Prior Functional Level (Other details) Pt has supportive but limited to assist him. Social History Household Members spouse Living Arrangements Apartment/Condo Number of Floors (Floors) One Floor Number of Stairs To Enter/Railing? no steps to enter Home Environment Standard Height Toilet,Tub/ Shower Home Equipment Front Wheel Walker,Straight Cane,Raised Toilet Seat Without Armrests,Hand Held Shower,Grab Bars Near Toilet, Grab Bars In Shower Additional Social History Comment Pt has a hurry cane spouse stated that they are getting a hospital bed for pt M2 PT-IP Current Condition Start: 03/02/24 13:17 Freq: NEEDED Status: Active Protocol: Document 03/02/24 10:00 AB (Rec: 03/02/24 13:28 AB [id number]) Physical Therapy Current Condition Current Condition Evaluation Date 03/02/24 Treatment Diagnosis s/p R GARRY posterior; difficulty in walking Onset Date 03/01/24 M3 PT-IP Subjective Start: 03/02/24 13:17 Freq: NEEDED Status: Active Protocol: Document 03/02/24 10:00 AB (Rec: 03/02/24 13:28 AB [id number]) Subjective Physical Therapy Visit Type Type Initial Evaluation Visit Start Time 10:00 Visit Stop Time 10:55 Number of OBJECTIVE C DEVELOPER Visits 0 Physical Therapy Visit Comments Patient Comments agreeable to do PT Therapy Pain Assessment Pain When Pain Assessed At Rest Pain Present Pain Present Pain Reported Location Right Hip Intensity 9 Scale Used Numeric (0 - 10) Pain Behaviors Moaning Pain Management Techniques Apply Cold,Distraction, Modification of Treatment,Re- positioning,Timing of Activity with Medications M4 PT-IP Mobility and Gait Start: 03/02/24 13:17 Freq: NEEDED Status: Active Protocol: Document 03/02/24 10:00 AB (Rec: 03/02/24 13:28 [id number]) PT-Bed Mobility Assessment Supine to Sit Supine to Sit Moderate Assistance,Maximum Assistance,1 Person Assistance Sit to Supine Sit to Supine Moderate Assistance,Maximum Assistance,1 Person Assistance PT-Transfer Assessment Sit to and From Stand Sit to and from Stand Moderate Assistance,1 Person Assistance,Use of Upper Extremities Equipment Transfer Assistive Device Gait Belt,Front Wheeled Walker Orthotic/Prosthetic Devices or Brace: No Transfers Transfer Destination Bed,Chair Transfer Technique ambulated Transfer Ability Level of Assist Moderate Assistance,1 Person Assistance,Use of Upper Extremities Comments Mobility Comments pt sitting on the chair and spouse in room. obtained PLOF and home set up from pt and spouse. post-op folder provided and reviewed contents . educated pt and spouse regarding pt's R hip posterior ambulation. pt able to recall afterwards. completed sit to stand mod A and max cues for RLE placement. ambulated to the EOB ~ 20 ft using FWW mod A and cues. presents with slow shuffling gait. pt sat on EOB. educated spouse on how to assist pt with bed mobility. pt required mod to max A for bed mobility and spouse was able to assist . educated spouse on how to use safety belt and how to assist pt for transfers and ambulation. spouse was able to put safety belt on pt, assisted pt with sit to stand and ambulation to the chair using FWW mod A. positioned pt on the chair. call light and table placed within reach. pt and spouse without any questions. informed NAC that pt needs to be cleaned up. Left pt with NAC. Gait Assessment Gait Gait Assistance Required: Moderate Assistance Distance (Feet) 20 Able to Maintain Weight Bearing Status Yes During Gait Assistive Devices Assistive Device Gait Belt,Front Wheeled Walker Orthotic/Prosthetic Devices or Brace: No Gait Deviations General Gait Pattern Antalgic,Decreased Stride Length,Decreased Feet Clearance Factors Limiting Gait Function Factors Limiting Gait Function Decreased Activity Tolerance, Decreased Strength,Difficulty Following Directions,Limited Range of Motion,Pain,Poor Balance,Poor Safety Awareness PT-Balance Assessment Sitting Balance and Reactions Static Sitting Balance Ability Good Dynamic Sitting Balance Ability Good Standing Balance and Reactions Static Standing Balance Ability Fair Dynamic Standing Balance Ability Fair Device Used FWW M5 PT-IP Objective Assessments Start: 03/02/24 13:17 Freq: NEEDED Status: Active Protocol: Document 03/02/24 10:00 AB (Rec: 03/02/24 13:28 [id number]) Orientation Orientation/Cognition Level of Alertness Alert Orientation Name,Place,Situation Language Function Ability No Deficits Noted Safety Awareness Decreased Safety Awareness Memory Description No Deficits Noted Gross Range of Motion Lower Extremity ROM Assessment Within Functional Limits Strength Lower Extremity Strength Assessment Right Impaired Hip 3-/5 Knee 3+/5 Coordination Assessment Gross Coordination Gross Coordination WNL Muscle Tone Muscle Tone WNL Yes M6 PT-IP Treatment Start: 03/02/24 13:17 Freq: NEEDED Status: Active Protocol: Document 03/02/24 10:00 AB (Rec: 03/02/24 13:28 [id number]) Physical Therapy Treatment Education Education Provided Precautions,Weight Bearing Status,Post-Op Packet,Safety M7 PT-IP Assessment and Plan Start: 03/02/24 13:17 Freq: NEEDED Status: Active Protocol: Document 03/02/24 10:00 AB (Rec: 03/02/24 13:28 [id number]) PT Summary Assessment and Plan Potential Rehabilitation Potential Fair Status of Condition at Evaluation Evolving Summary Impairments Pain,ROM,Strength,Balance, Coordination,Sensation,Tone, Cognition,Bed Mobility, Transfers,Gait,Activity Tolerance Assessment Summary pt is a 68 y/o M s/p R GARRY posterior approach POD 1. pt with R hip posterior precautions and is WBAT. pt requiring mod A for transfers and ambulation using FWW and mod to max A for bed mobility. caregiver training conducted and spouse was able to assist pt. pt will benefit from HHPT. Goals Bed Mobility Goal Independent Transfer Goal Independent,Front Wheeled Walker Gait Goal Independent,Front Wheel Walker Gait Distance 150 Days to Meet Goals 5 Frequency of Treatment Frequency Of Treatment Twice a Day Treatment Plan Physical Therapy Treatment Plan Bed Mobility Training,Transfer Training,Gait Training, Therapeutic Exercise,Balance Retraining,Post Op Education, Discharge Planning,Hot or Cold Pack,Neuromuscular Re-ed, Coordination Retraining,Manual Therapy Precautions Posterior Hip Precautions No Hip Flexion > 90 degrees,No Hip Internal Rotation,No Hip Adduction Weight Bearing Status Weight Bearing Status Weight Bear as Tolerated Allowed Weight Bearing Amount (enter % RLE WBAT or #) (%) Recommendations To Nursing Amount of Assist Needed 1 Person Assist Discharge Recommendations PT Discharge Recommendations Home with 22/11 Assist Available,Home Health Transportation Needs at Discharge Private Vehicle,Wheelchair/ Cabulance
--- NOTE | 2024-03-02 11:50 | OT.IP.EVAL ---
Current Diagnoses Unilateral primary osteoarthritis, right hip (03/01/24) Presence of unspecified artificial hip joint (03/01/24) Surgery Performed Operation Date: 03/01/24 10:45 Actual Procedures p Total Hip Arthroplasty(Right) - Ciara Pradhan MD Past Medical History (Last Updated 02/22/24 @ 10:04 by Charity Villanueva RN) Chronic neck and back pain Coronary artery disease Hypertension Left hemiparesis Overdose of fentanyl (09/02/23) Right rib fracture Stroke Systolic congestive 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, NYHA class 1 Surgical History (Last Reviewed 09/05/23 @ 08:12 by Yasir Huitron MD) History of cholecystectomy History of laparotomy History of shoulder surgery History of surgery on wrist Hx of fusion of cervical spine Occupational Therapy Inpatient Evaluation/Re-Eval M1 PT/OT-IP Prior Functional Status Start: 03/02/24 12:48 Freq: NEEDED Status: Active Protocol: Document 03/02/24 12:48 [facility] (Rec: 03/02/24 13:13 [facility] [id number]) Medical Review Prior Functional Status Communication I Mobility and Gait Pt used a hurry cane to get around. Activities of Daily Living and IADL's Pt had difficulty with LB dressing needs and that his having to assist him. Prior Functional Level (Other details) Pt has supportive but limited to assist him. Social History Household Members spouse Living Arrangements Apartment/Condo Number of Stairs To Enter/Railing? No steps to enter. Home Environment Standard Height Toilet,Tub/ Shower Home Equipment Front Wheel Walker,Straight Cane,Raised Toilet Seat Without Armrests,Grab Bars Near Toilet,Grab Bars In Shower Additional Social History Comment Pt has a hurry cane. M2 OT-IP Current Condition Start: 03/02/24 12:48 Freq: Status: Active Protocol: Document 03/02/24 12:48 [facility] (Rec: 03/02/24 13:13 [facility] [id number]) Occupational Therapy Current Condition Current Condition Evaluation Date 03/02/24 Treatment Diagnosis S/P R GARRY Diagnosis Onset Date 03/01/24 Post Operative Precautions Posterior Hip Precautions No Hip Flexion > 90 degrees,No Hip Internal Rotation,No Hip Adduction M3 OT- IP Subjective and Pain Start: 03/02/24 12:48 Freq: Status: Active Protocol: Document 03/02/24 12:48 [facility] (Rec: 03/02/24 13:13 [facility] [id number]) OT- Subjective Occupational Therapy Visit Type Type Initial Evaluation Visit Start Time 11:25 Visit Stop Time 11:50 Occupational Therapy Visit Comments Patient Comments Pt in lots of pain, nursing aware. Nursing also aware rhett mechanism on the sink. Patient/Caregiver Goals TO get better. OT Pain Assessment Pain When Pain Assessed At Rest Pain Present Pain Present Pain Reported Location back Intensity 9 Scale Used Numeric (0 - 10) M4 OT- IP ADL's Start: 03/02/24 12:48 Freq: Status: Active Protocol: Document 03/02/24 12:48 [facility] (Rec: 03/02/24 13:13 [facility] [id number]) OT [id number] Comments OT Self-Feeding Comments Not performed. OT ADL-Grooming Comments OT Grooming Comments Not performed. OT ADL-Oral Care Comments Oral Care Comments NOt performed. OT ADL-Dressing General Eval Lower Body Dressing Ability Maximum Assistance Areas Needing Assistance Socks Comments OT Dressing Comments Able to show pt use of sock aid and semiautomatic taper operator. Educated to dress the RLE first and take out last. OT ADL-Toileting Comments OT Toileting Comments Educated better to stand and wipe to best follow his hip precautions. Suggested use of urinal at night and get a BSC to easier to come to stand. OT ADL-Bathing Comments OT Bathing Comments Pt will benefit from a tub bench or sponge off initially. In addition benefit from grab bars and HHSP. M5 OT- IP IADL's Start: 03/02/24 12:48 Freq: Status: Active Protocol: Document 03/02/24 12:48 [facility] (Rec: 03/02/24 13:13 [facility] [id number]) OT-Instrumental Activities of Daily Living Deficits IADL Deficits Identified Deficits Home Safety Awareness Awareness of Need for Assistance at Home Good Awareness Home Safety Comments Pt has a supportive to assist with his needs. Meal Preparation Meal Preparation Caregiver Provides Assist [employer] Fl[employer] Miller Caregiver Provides Assist M6 OT- IP Functional Cognition Start: 03/02/24 12:48 Freq: Status: Active Protocol: Document 03/02/24 12:48 [facility] (Rec: 03/02/24 13:13 [facility] [id number]) Cognitive Factors Limiting Selfcare Function Cognitive Ability Level of Alertness Alert,Drowsy Patient Orientation Name,Place,Situation Attention Span Ability Capable of Focused Attention, Capable of Sustained Attention Safety Awareness Decreased Recall of Precautions Cognitive Comments Cognitive Assessment Comments Pt a little groggy and in pain . Pt able to recall 2/3 hip precautions and will benefit from more practice and training. OT- Vision and Hearing OT- Hearing Assessment OT- Hearing Assessment WFL OT- Vision Assessment Visual Acuity Glasses All The Time Visual Attentiveness WFL Occular Pursuits WFL M7 OT- IP Mobility and Balance Start: 03/02/24 12:48 Freq: Status: Active Protocol: Document 03/02/24 12:48 [facility] (Rec: 03/02/24 13:13 [facility] [id number]) OT-Transfer Assessment Sit to and From Stand Sit to and from Stand Minimal Assistance Technique Transfer Destination Chair Transfer Technique Stand Step Pivot Devices Transfer Assistive Devices Gait Belt,Front Wheeled Walker Comments Mobility Comments Pt just agreed to try LB dressing need and to stand up to the FWW, otherwise pt having too much pain to try more. Pt able to come to stand with YUNIEL to the FWW. OT- Balance Assessment Sitting Balance and Reactions Static Sitting Balance Ability Good Dynamic Sitting Balance Ability Good Standing Balance and Reactions Static Standing Balance Ability Fair M8 OT- IP Objective Assessments Start: 03/02/24 12:48 Freq: Status: Active Protocol: Document 03/02/24 12:48 [facility] (Rec: 03/02/24 13:13 [facility] [id number]) OT Gross Range of Motion Upper Extremity Range of Motion ROM Impairments WFL for needs. OT Strength Comments Strength Comments WFL for needs. M9 OT- IP Assessment and Plan Start: 03/02/24 12:48 Freq: Status: Active Protocol: Document 03/02/24 12:48 [facility] (Rec: 03/02/24 13:13 [facility] [id number]) OT Summary Assessment and Plan Potential Rehabilitation Potential Good Analytic Complexity at Evaluation Low Summary OT Impairments Pain,Balance,Functional Mobility,Dressing,Toileting, Bathing,Toilet Transfers, Shower Transfers,Activity Tolerance Progress Towards Goals Progressing Toward Goals,Slow Progress due to Pain Assessment Summary Pt low complexity and main barriers are pain and will be needing use of LB dressing equipment or assist from his . Pt having lots of pain on OT eval which limited his activity tolerance today. Pt to go home with 22/11 assist and outpt PT when medically ready. Goals Self-Feeding Goal Independent Grooming Goal Independent Dressing Goal Minimal Assistance Toileting Goal Minimal Assistance Bathing Goal Moderate Assistance Toilet Transfer Goal Standby Assistance Shower Transfer Goal Contact Guard Assistance Days to Meet Goals 7 Frequency of Treatment Other frequency 5x/week Treatment Plan OT Treatment Plan ADL Training,Functional Mobility,Patient/Family Education,Discharge Planning Discharge Recommendations OT Discharge Recommendations Home with / Assist Available,Outpatient PT Home Equipment Needs tub bench, BSC, LB dressing equipment, hand held shower spray Transportation Needs at Discharge Private Vehicle
--- NOTE | 2024-03-02 14:27 | CM.DANOTE ---
Addendum entered by BERT Rose 03/02/24 15:30: per Cynthia at [facility], able to accept pt. SL Addendum entered by BERT Rose 03/02/24 14:53: f2f completed, order needed SL Original Note: B DCP Assessment Note Pt is a 68yo M here POD1 total right hip with Dr. Pradhan. pt is SDC. PCP Pat Pisano Payer [employer] Medicare HMO, Medicaid, and [facility] DIAMOND SELECTOR reviewed EMR. pt is a man from [facility]. hx of Fentanyl use. last known use of fentanyl is from August 2023, where he stayed in our ICU from accidental OD. per chart review, he dc'd home with resumption of care with [facility]. 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 per PT/OT, rec home with spouse support/HH, already did caregiver training. pt is just in a lot of pain. has a walker, cane, and grab bars at home. Received call from [facility], ([phone]) hoping to advocate for SNF for pt. Per RN, he received call from pt's sister reporting she has concerns about pt going home. DIAMOND SELECTOR met briefly with pt in room. pt in obvious pain during interaction. pt moaning and wincing, crying out in pain. DIAMOND SELECTOR notified RN, RN to see about getting pt more pain meds. Pt briefly talked during interaction, confirmed hopeful for home. Agreeable to HH, no preference. report spouse can help him at home. Pt reports that if [facility] calls back to direct them to spouse. Spouse is best number for HH to call for scheduling. DIAMOND SELECTOR spoke with Cynthia from [facility], kindly agreed to review. ALICIA Bergman emailed Cynthia referral information for review. f2f and order needed P: home with spouse and HH when medically stable, Sig HH acceptance pending for RN/PT/OT. CM team will continue to follow closely BERT Rose Discharge Planning/Care Management CM Discharge Assessment Start: 03/02/24 14:23 Freq: Status: Active Protocol: Document 03/02/24 14:24 SL (Rec: 03/02/24 14:27 SL [id number]) Discharge Planning Assessment Assigned Food Trades Assistants BERT Andersen DPOA/Assigned Designee Name Arianne spouse Contact Information [phone] Advance Directives? Yes Advance Directives on File Yes History Provided By Patient,Medical Record Prior Living Arrangements Apartment/Condo Household Members spouse Independent with ADL's Yes Is patient alert and oriented? Yes DME Already Rented / Owned FWW / Walker Patient/Family Preference Home with Home Health,OP PT Therapy Discharge Plan Home Referrals Initiated Home Health Additional Comment Sig HH reviewing SNF/HH Preference Sig HH Whiteboard Updated in Patient Room with Yes name and ext. # of Food Trades Assistants Review Status In Process Please Provide Date Initial DC 03/02/24 Assessment Was Performed Next Review Type Continued Stay Review Pre-Anesthesia Assessment Start: 02/22/24 09:55 Freq: Status: Active Protocol: Document 02/22/24 09:55 LB (Rec: 02/22/24 10:52 LB [id number]) Pre-Anesthesia Assessment PAC Comment 02/22/24 Phone assessment. Patient Information Reviewed Via Phone Assessment Assessment Completed With Patient Diagnostic Results CBC,PT/INR,Urinalysis Comment 09/06/23 at . [facility] Primary Care Provider Jordon Flanagan Seen Specialist in Last 12 Months Yes Specialist Seen Emergency,Orthopedist Comment Fentanyl overdose 09/02/23 Primary Language Ghanaian Preferred Language Ghanaian J2Ee Software Engineer Required No Height 170.18 cm Weight 106.594 kg Body Mass Index (BMI) 36.8 Hearing Ability Normal Visual Assist Glasses Dentition Type Teeth, Natural Present,Teeth, Missing Barriers to Learning None Other Aids No Hx Anesthesia Reactions No Hx Family Anesthesia Reaction No Hx Malignant Hyperthermia No Hx Blood Transfusions No Anesthesia Review Requested No [employer] Former Yes: Voice mail left for DC planning to see pt DOS. alcohol intake former Smoking Status Former smoker Tobacco type cigarettes how long ago did patient quit smoking 40 yrs ago Substance Use Type does not use,other Comment On methadone. Fentanyl overdose 09/02/23. Pain Present Pain Reported Comment right hip. Musculoskeletal Symptoms Joint Pain,Radiating Pain into Limb History of Falling (Recent or History of Yes ) Patient is completely paralyzed or Yes: partial paralysis on left completely immobile side. Prosthesis or Orthotic Device Cane Is patient on oxygen? No Does patient have ORTIZ/SOB No Hx Sleep Apnea No Currently Taking a Beta Aryan Yes: Carvedilol 25mg BID. Can You Climb a Flight of Stairs Without No SOB Hx Chest Pain Yes Hx SOB Yes Hx Syncope or Dizziness No Anti-Coagulant Therapy Yes: Plavix 75mg daily - instructed pt to check with MD when to hold. Has a Drug Abuse Program Coordinator No Cardiac Testing No Hx Pacemaker/ICD No Cardiac Clearance Received Not Applicable Dysphagia No Diabetes No Hx Drug Resistant Organism No Presence of External or Internal Medical No Devices Have you had any close contact with No someone diagnosed with COVID-19? Are you experiencing any of these No symptoms symptoms? Received a COVID vaccine? Yes Marital Status Lives With spouse Current Living Arrangements Apartment/Condo Number of Stairs To Enter/Railing? no stairs. Support System Sibling(s),Spouse Does the Patient Have Assistance After Yes: will be of limited Surgery help due to own medical issued . Patient Discharge Plan Description Return Home Additional comment Advised overnight LOS per pt request. Do You Have Any Spiritual Beliefs That No May Affect Your HC Choices? Do You Have Any Cultural Practices That No May Affect Your HC Choices? Emergency Contact Name Azucena Michele - Emergency Contact Advance Directives? Yes Advance Directives on File Yes Power of Route Supervisor Yes Power of Route Supervisor Name azucena Overton - Power of Route Supervisor PAC Instructions Assistance for 24 hours post- op,Durable medical equipment, Medications to take/avoid, Nasal antibiotic,No ETOH/ petroleum product on skin DOS, NPO,Post-op transportation,Pre -op antibiotic,Pre-surgical wash,Sensory aids,Sturdy shoes /comfortable clothes,Do not bring valuables and remove jewelry
--- NOTE | 2024-03-02 14:45 | PT.IPTN ---
Current Diagnoses Unilateral primary osteoarthritis, right hip (03/01/24) Presence of unspecified artificial hip joint (03/01/24) Surgery Performed Operation Date: 03/01/24 10:45 Actual Procedures p Total Hip Arthroplasty(Right) - Ciara Pradhan MD Physical Therapy Treatment Note M2 PT-IP Current Condition Start: 03/02/24 13:17 Freq: NEEDED Status: Active Protocol: Document 03/02/24 10:00 AB (Rec: 03/02/24 13:28 AB [id number]) Physical Therapy Current Condition Current Condition Evaluation Date 03/02/24 Treatment Diagnosis s/p R GARRY posterior; difficulty in walking Onset Date 03/01/24 M3 PT-IP Subjective Start: 03/02/24 13:17 Freq: NEEDED Status: Active Protocol: Document 03/02/24 14:45 AB (Rec: 03/02/24 17:30 AB [id number]) Subjective Physical Therapy Visit Type Visit Start Time 14:45 Visit Stop Time 15:00 Number of VACUUM PAN TENDER Visits 0 Physical Therapy Visit Comments Patient Comments agreeable to do PT Therapy Pain Assessment Pain When Pain Assessed At Rest Pain Present Pain Present Pain Reported Location Right Hip Scale Used pain scale not state Pain Management Techniques Apply Cold,Distraction, Modification of Treatment,Re- positioning,Timing of Activity with Medications M4 PT-IP Mobility and Gait Start: 03/02/24 13:17 Freq: NEEDED Status: Active Protocol: Document 03/02/24 14:45 AB (Rec: 03/02/24 17:30 AB [id number]) PT-Bed Mobility Assessment Supine to Sit Supine to Sit Maximum Assistance,1 Person Assistance Sit to Supine Sit to Supine Moderate Assistance,1 Person Assistance PT-Transfer Assessment Sit to and From Stand Sit to and from Stand Moderate Assistance,1 Person Assistance,Use of Upper Extremities Equipment Transfer Assistive Device Gait Belt,Front Wheeled Walker Orthotic/Prosthetic Devices or Brace: No Transfer Ability Level of Assist Minimal Assistance,1 Person Assistance,Use of Upper Extremities Comments Mobility Comments pt supine in bed and agreeable to do PT. reviewed hip precautions and pt recalled 3/ 3. completed supine to sit max A and cues. able to sit on EOB SBA. completed sit to stand mod A and cues and ambulated in room using FWW ~ 40 ft min A. pt requested to go back to bed. completed sit to supine mod A for elevating RLE up to bed. positioned pt in bed. call light and table placed within reach. Gait Assessment Gait Gait Assistance Required: Minimum Assistance Distance (Feet) 40 Able to Maintain Weight Bearing Status Yes During Gait Assistive Devices Assistive Device Gait Belt,Front Wheeled Walker Orthotic/Prosthetic Devices or Brace: No Gait Deviations General Gait Pattern Antalgic,Decreased Stride Length Factors Limiting Gait Function Factors Limiting Gait Function Decreased Activity Tolerance, Decreased Strength,Limited Range of Motion,Pain,Poor Balance,Poor Safety Awareness M5 PT-IP Objective Assessments Start: 03/02/24 13:17 Freq: NEEDED Status: Active Protocol: Document 03/02/24 10:00 AB (Rec: 03/02/24 13:28 AB [id number]) Orientation Orientation/Cognition Level of Alertness Alert Orientation Name,Place,Situation Language Function Ability No Deficits Noted Safety Awareness Decreased Safety Awareness Memory Description No Deficits Noted Gross Range of Motion Lower Extremity ROM Assessment Within Functional Limits Strength Lower Extremity Strength Assessment Right Impaired Hip 3-/5 Knee 3+/5 Coordination Assessment Gross Coordination Gross Coordination WNL Muscle Tone Muscle Tone WNL Yes M6 PT-IP Treatment Start: 03/02/24 13:17 Freq: NEEDED Status: Active Protocol: Document 03/02/24 14:45 AB (Rec: 03/02/24 17:30 AB [id number]) Physical Therapy Treatment Education Education Provided Precautions,Safety M7 PT-IP Assessment and Plan Start: 03/02/24 13:17 Freq: NEEDED Status: Active Protocol: Document 03/02/24 14:45 AB (Rec: 03/02/24 17:30 AB [id number]) PT Summary Assessment and Plan Potential Rehabilitation Potential Fair Summary Impairments Pain,ROM,Strength,Balance, Coordination,Sensation,Tone, Cognition,Bed Mobility, Transfers,Gait,Activity Tolerance Progress Towards Goals Slow Progress due to Pain Assessment Summary pt improving slowly wiht mobility but continues to c/o increase R hip pain affecting mobility. caregiver training was conducted this afternoon and spouse was able to assist pt. pt will benefit from HHPT. pt may go home when medically stable. Goals Bed Mobility Goal Independent Transfer Goal Independent,Front Wheeled Walker Gait Goal Independent,Front Wheel Walker Gait Distance 150 Days to Meet Goals 5 Frequency of Treatment Frequency Of Treatment Twice a Day Treatment Plan Physical Therapy Treatment Plan Bed Mobility Training,Transfer Training,Gait Training, Therapeutic Exercise,Balance Retraining,Post Op Education, Discharge Planning,Hot or Cold Pack,Neuromuscular Re-ed, Coordination Retraining,Manual Therapy Precautions Posterior Hip Precautions No Hip Flexion > 90 degrees,No Hip Internal Rotation,No Hip Adduction Weight Bearing Status Weight Bearing Status Weight Bear as Tolerated Allowed Weight Bearing Amount (enter % RLE WBAT or #) (%) Recommendations To Nursing Amount of Assist Needed 1 Person Assist Discharge Recommendations PT Discharge Recommendations Home with 22/11 Assist Available,Home Health Transportation Needs at Discharge Private Vehicle,Wheelchair/ Cabulance
[2024-03-02] MEDS: ASPIRIN EC 81 MG TABLET PO (22:11)
[2024-03-03] MEDS: OXYCODONE IR 10 MG TABLET PO ×4 (01:23→12:02)
[2024-03-03] MEDS: ACETAMINOPHEN 325 MG TABLET 650 MG PO ×2 (03:54→12:02)
[2024-03-03 08:00] VITALS: BP 180/94; PULSE 72; RESP 18; TEMP 36.6; O2SAT 98
[2024-03-03 08:21] VITALS: PULSE 78; RESP 22; O2SAT 99
[2024-03-03] MEDS: BUDESONIDE 0.5 MG/2 ML NEB INH (08:21)
[2024-03-03 08:36] VITALS: BP 180/94; PULSE 78
[2024-03-03] MEDS: hydroCHLOROthiazide 25 MG TABLET 12.5 MG PO (08:36)
[2024-03-03] MEDS: ASPIRIN EC 81 MG TABLET PO (08:36)
[2024-03-03] MEDS: LOSARTAN 25 MG TABLET PO (08:36)
[2024-03-03] MEDS: CITALOPRAM 10 MG TABLET 20 MG PO (08:36)
[2024-03-03 08:37] VITALS: BP 180/94; PULSE 78
[2024-03-03] MEDS: PANTOPRAZOLE DR 40 MG TABLET PO (08:37)
[2024-03-03] MEDS: carvediloL 12.5 MG TABLET 25 MG PO (08:37)
[2024-03-03] MEDS: DOCUSATE 100 MG CAPSULE PO (08:37)
[2024-03-03] MEDS: CLOPIDOGREL 75 MG TABLET PO (08:37)
[2024-03-03] MEDS: METHADONE INTENSOL 10 MG/ML ORAL.CONC 175 MG PO (08:40)
--- NOTE | 2024-03-03 09:36 | CM.DPNOTE ---
Addendum entered by BERT Rose 03/03/24 10:35: DIRECTOR MEETINGS emailed nicholas from [employer] f[employer], order, and signed dc sum SL Original Note: DCP note DIRECTOR MEETINGS reviewed EMR. DIRECTOR MEETINGS met with pt and spouse in room. Pt and spouse continue to report sig pain today but overall much better. Pt and spouse eager to dc home, reports pt will likely be more comfortable at home. Spouse asked about getting pt a bedside table and commode, report limited financial resources. DIRECTOR MEETINGS provided information for [employer] and local [facility] for DME. pt/spouse report they will explore that and the local [facility] community to see if they have DME to borrow. DIRECTOR MEETINGS provided pt and spouse with [employer] brochure. Pt/spouse deny other questions at this time. DIRECTOR MEETINGS completed f2f and order. DIRECTOR MEETINGS will emailed Nicholas from [employer], order, and dc sum when available. P: pt to dc home today with spouse support and [employer] to follow for RN/PT/OT. CM team will continue to follow as needed BERT Rose
--- NOTE | 2024-03-03 10:15 | P.DS_ITS ---
History of Present Illness History of Present Illness Date Patient Seen: 03/03/24 Time Patient Seen: 10:15 Chief complaint: OPB Narrative: Operative Date/Time/Diagnoses Date of procedure: 03/01/24 Time of procedure: 11:00 Pre-op diagnosis: right hip avascular necrosis, hip OA Post-op diagnosis: same Procedure & Clinicians Procedure: Right total hip arthroplasty posterior approach Same procedure as scheduled: Yes Indications: The patient has had progressively worsening right hip pain with radiographic changes consistent with arthritis. Non-operative management has failed and the patient has requested total hip replacement. The risks, benefits and alternatives to surgery were discussed with the patient prior to proceeding. Risks discussed included, but were not limited to, failure to relieve pain, leg length discrepancy, dislocation, stiffness, infection, nerve damage, deep venous thrombosis, pulmonary embolism, stroke, coma, heart attack, permanent paralysis and , as well as the potential need for eventual revision of the prosthetic. Surgeon: Ciara Pradhan Outboard Motor Inspector: Juan David Madison Anesthesia Type: General Operative Notes Findings: Severe right hip OA, adequate bone, adequate stability Closure Type: primary Specimen(s): none sent Prosthetic devices, grafts, tissues, transplants, or devices: Pradhan and Nephew R3 size 50, neutral poly liner, polar stem size 3 standard offset,one 6.5 mm screw, 36 mm +0 cobalt chrome head Estimated Blood Loss (mL): 250 Blood products transfused: none Discharge Providers Provider Discharge Date: 03/03/24 Primary care physician: TERRA Matute Consults: 03/01/24 06:00 Consult to Anesthesiology Routine Comment: Consulting Provider: Anesthesiologist Reason for consultation: Regional block for post operative pain control 03/01/24 14:28 Consult to Discharge Planning Routine Comment: Consult to Occupational Therapy Evaluate & Treat Comment: Physician Instructions: Evaluate and treat Consult to Physical Therapy Evaluate & Treat Comment: Physician Instructions: post op GARRY protocol 03/03/24 09:36 Consult to Home Health Routine Comment: Reason For Exam: RN/PT/OT Discharge provider: Judit Sethi PA-C Summary Hospital Course Discharge Diagnosis: Right hip avascular necrosis, s/p right total hip arthroplasty H/o opioid use disorder H/o CVA with residual left-sided weakness Hospital Course: Mr Jj's hospital course was unremarkable. On the morning of POD# 1, he was eating and voiding without difficulty and his pain was controlled with oral medication. He was evaluated by PT and the plan was to discharge home w/ the assistance of his spouse as well as home health. Exam Vital Signs (past 8 hours): - 03/03/24 08:00 03/03/24 08:21 03/03/24 08:36 Temperature 97.9 F Pulse Rate 72 78 78 Respiratory Rate 18 22 Blood Pressure 180/94 H 180/94 H Pulse Oximetry 98 99 Oxygen Delivery Method Room Air Oxygen Flow Rate 0 0 Fraction of Inspired Oxygen 21 03/03/24 08:37 Temperature Pulse Rate 78 Respiratory Rate Blood Pressure 180/94 H Pulse Oximetry Oxygen Delivery Method Oxygen Flow Rate Fraction of Inspired Oxygen Fraction of Inspired Oxygen 21 SaO2/FiO2 Ratio 471 Oxygen Delivery Method Room Air Oxygen Flow Rate 0 Narrative Exam Narrative: 3/5 strength in hip flexors, 4/5 quadriceps and hamstrings, 5/5 PF, DF, EHL on right. Sensation to light touch intact throughout RLE, calf soft and compressible. ALEX dressing CDI, battery pack has been pulled off at the connection to the dressing itself. Objective Labs 03/02/24 04:18 [facility] Medical History (Updated 02/22/24 @ 10:04 by Charity Villanueva RN) Overdose of fentanyl (09/02/23) Chronic neck and back pain Systolic congestive 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, NYHA class 1 Left hemiparesis Stroke Right rib fracture Coronary artery disease Hypertension Surgical History (Updated 03/02/24 @ 06:42 by Judit Sethi PA-C) History of cholecystectomy Hx of fusion of cervical spine History of surgery on wrist History of shoulder surgery History of laparotomy Family History Father Parkinsons Mother Cancer Brother Cancer Sister No significant medical problems Social History household members: spouse Smoking Status: Former smoker alcohol intake: former substance use type: does not use Discharge Assessment & Plan Assessment and Plan Assessment: 1) Right hip avascular necrosis, s/p right total hip arthroplasty 2) H/o opioid use disorder 3) H/o CVA with residual left-sided weakness Plan of Treatment: 1) Standard posterior hip protocol, ASA BID for VTE prophylaxis, f/u in office as scheduled. 2) Pt received methadone today and has a dose at home to take tomorrow. He will follow up w/ Pam on 03/05 for next scheduled dose. He was prescribed oxycodone for after surgery by our office on 02/06; he took this before surgery. He was prescribed another #30 of oxycodone on 02/[address] Jordon Flanagan; this is also gone. I left a message w/ Dr Flanagan's office yesterday in an attempt to clarify opioid prescribing, but I did not hear back. I told the patient I will prescribe oxycodone 5mg #10 for discharge but that he should reach out to Dr Flanagan's office on 03/05 if he needs further rxs. I will also attempt to have our office reach out to Dr Flanagan. 3) Continue Plavix as per preop. Discharge Plan Discharge Plan Patient Disposition: Home Provider Discharge Comment: [facility] Discharge orders & Medications Discharge Orders: Discharge (Order); Ordered 03/03/24 Ordered By: Judit Sethi Prescriptions: New oxycodone 5 mg tablet 5 mg PO Q4-6H PRN (Reason: pain (scale score 4-6)) Qty: 10 0RF ondansetron 4 mg Tablet,Disintegrating 4 mg PO Q6HR PRN (Reason: nausea and vomiting) Qty: 30 0RF polyethylene glycol 3350 17 gram Powder In Packet 17 g PO DAILY PRN (Reason: Constipation) Qty: 100 0RF aspirin 81 mg Tablet,Delayed Release (Dr/Ec) 81 mg PO BID Qty: 90 0RF Continued carvedilol 25 mg tablet 25 mg PO BID Qty: 60 0RF Rx Instructions: must administer with a meal/food fluticasone propionate 44 mcg/actuation HFA aerosol inhaler 44 mcg inhalation BID Arnuity Ellipta 100 mcg/actuation blister with device 1 inh inhalation DAILY citalopram 10 mg Tablet 20 mg PO DAILY Qty: 30 0RF methadone 10 mg Tablet 175 mg PO DAILY Patient Comments: Confirmed with Kamilla at [facility] 09/05/23 @ 10:00am clopidogrel 75 mg tablet 75 mg PO DAILY acetaminophen [Tylenol Extra Strength] 500 mg Tablet 1,000 mg PO TID pantoprazole 40 mg tablet,delayed release (DR/EC) 40 mg PO DAILY losartan 25 mg tablet 25 mg PO DAILY hydrochlorothiazide 12.5 mg tablet 12.5 mg PO DAILY Follow up/Referrals: Jay Patricia PA-C [Advanced Maintenance Shop Technician] - 03/13/24 2:00 pm (Appt:03/13 @ 2:00 with Maria M @ [facility] ) Pat Pisano ARNP [Primary Care Provider] - Diet/Activity/Treatments Diet: Diet as Tolerated Activity: Weightbearing as tolerated to right leg. Posterior hip precautions. Cold/Heat Therapy: Ice to hip as needed for pain. Skin/Wound/Dressing Care Report to your healthcare provider any signs of infection, such as:: chills, fever, night sweats, unusual drainage and unusual redness Dressing: May shower. Keep dressing in place until follow up in office. No bathing or otherwise soaking incision. Call the office if the dressing becomes saturated inside. Visit Report/Discharge Packet Instructions: DI for Hip Replacement, DI for Prescription Opioid Use Stand Alone Forms: Patient Portal/API, Stroke Signs & Symptoms, Surgery Discharge Discharge Data Primary Care Provider: Pat Pisano Attending Provider: Ciara Pradhan VTE Deep Vein Thrombosis/Pulmonary Embolism Present on Admission: No
--- NOTE | 2024-03-03 11:30 | PT.IPTN ---
Current Diagnoses Unilateral primary osteoarthritis, right hip (03/01/24) Presence of unspecified artificial hip joint (03/01/24) Surgery Performed Operation Date: 03/01/24 10:45 Actual Procedures p Total Hip Arthroplasty(Right) - Ciara Pradhan MD Physical Therapy Treatment Note M2 PT-IP Current Condition Start: 03/02/24 13:17 Freq: NEEDED Status: Active Protocol: Document 03/02/24 10:00 AB (Rec: 03/02/24 13:28 AB [id number]) Physical Therapy Current Condition Current Condition Evaluation Date 03/02/24 Treatment Diagnosis s/p R GARRY posterior; difficulty in walking Onset Date 03/01/24 M3 PT-IP Subjective Start: 03/02/24 13:17 Freq: NEEDED Status: Active Protocol: Document 03/03/24 12:19 TS (Rec: 03/03/24 12:28 TS [id number]) Subjective Physical Therapy Visit Type Type Treatment Note Visit Start Time 11:30 Visit Stop Time 11:53 Notes Spouse present Number of NUCLEAR PHYSICIAN Visits 1 Physical Therapy Visit Comments Patient Comments Pt found resting in the chair, is agreeable to PT. Therapy Pain Assessment Pain When Pain Assessed At Rest Pain Present Pain Present Pain Reported M4 PT-IP Mobility and Gait Start: 03/02/24 13:17 Freq: NEEDED Status: Active Protocol: Document 03/03/24 12:19 TS (Rec: 03/03/24 12:28 TS [id number]) PT-Bed Mobility Assessment Supine to Sit Supine to Sit Contact Guard Assistance,1 Person Assistance Sit to Supine Sit to Supine Minimal Assistance,1 Person Assistance PT-Transfer Assessment Sit to and From Stand Sit to and from Stand Minimal Assistance,1 Person Assistance,Use of Upper Extremities Equipment Transfer Assistive Device Gait Belt,Front Wheeled Walker Orthotic/Prosthetic Devices or Brace: No Comments Mobility Comments Pt recalls 2/3 hip precautions (does not recall int rotation) . Spouse dons gait belt prior to mobility. STS with FWW Ayesha from spouse. He ambulates with FWW CGA and a slow step to gait. Pt ambualtes back to chair, he reports he will use a 4WW at home. pt ambulates with 4WW CGA from spouse. He performs Sit to supine into bed Ayesha for RLE. Supine to sit CGA with cues for pushing with BUE support. He ambulates back to the chair. Pt was left in chair, all needs met, RN notified. Gait Assessment Gait Gait Assistance Required: Standby Assistance,Contact Guard Assist Distance (Feet) 60 Able to Maintain Weight Bearing Status Yes During Gait Assistive Devices Assistive Device Gait Belt,Front Wheeled Walker ,4 Wheeled Walker Orthotic/Prosthetic Devices or Brace: No Gait Deviations General Gait Pattern Antalgic,Decreased Stride Length Factors Limiting Gait Function Factors Limiting Gait Function Decreased Activity Tolerance, Decreased Strength,Limited Range of Motion,Pain,Poor Balance,Poor Safety Awareness PT-Balance Assessment Sitting Balance and Reactions Static Sitting Balance Ability Good Dynamic Sitting Balance Ability Good Standing Balance and Reactions Static Standing Balance Ability Fair Dynamic Standing Balance Ability Fair Device Used FWW M5 PT-IP Objective Assessments Start: 03/02/24 13:17 Freq: NEEDED Status: Active Protocol: Document 03/02/24 10:00 AB (Rec: 03/02/24 13:28 AB [id number]) Orientation Orientation/Cognition Level of Alertness Alert Orientation Name,Place,Situation Language Function Ability No Deficits Noted Safety Awareness Decreased Safety Awareness Memory Description No Deficits Noted Gross Range of Motion Lower Extremity ROM Assessment Within Functional Limits Strength Lower Extremity Strength Assessment Right Impaired Hip 3-/5 Knee 3+/5 Coordination Assessment Gross Coordination Gross Coordination WNL Muscle Tone Muscle Tone WNL Yes M6 PT-IP Treatment Start: 03/02/24 13:17 Freq: NEEDED Status: Active Protocol: Document 03/03/24 12:19 TS (Rec: 03/03/24 12:28 TS [id number]) Physical Therapy Treatment Education Education Provided Precautions,Safety M7 PT-IP Assessment and Plan Start: 03/02/24 13:17 Freq: NEEDED Status: Active Protocol: Document 03/03/24 12:19 TS (Rec: 03/03/24 12:28 TS [id number]) PT Summary Assessment and Plan Summary Impairments Pain,ROM,Strength,Balance, Coordination,Sensation,Tone, Cognition,Bed Mobility, Transfers,Gait,Activity Tolerance Progress Towards Goals Progressing Toward Goals Assessment Summary Octaviano is making progress with his mobility. He performs STS with 4WW and FWW Ayesha. He ambulates with 4WW and FWW in the room ~60'. He performs bed mobility Ayesha for RLE assistance. Spouse was instructed in and performed donning of gait belt, STS, gait and bed mobility. PT is recommending pt return home with 24/7 assist. Goals Bed Mobility Goal Independent Transfer Goal Independent,Front Wheeled Walker Gait Goal Independent,Front Wheel Walker Gait Distance 150 Days to Meet Goals 5 Frequency of Treatment Frequency Of Treatment Twice a Day Treatment Plan Physical Therapy Treatment Plan Bed Mobility Training,Transfer Training,Gait Training, Therapeutic Exercise,Balance Retraining,Post Op Education, Discharge Planning,Hot or Cold Pack,Neuromuscular Re-ed, Coordination Retraining,Manual Therapy Precautions Posterior Hip Precautions No Hip Flexion > 90 degrees,No Hip Internal Rotation,No Hip Adduction Weight Bearing Status Weight Bearing Status Weight Bear as Tolerated Allowed Weight Bearing Amount (enter % RLE WBAT or #) (%) Recommendations To Nursing Amount of Assist Needed 1 Person Assist Discharge Recommendations PT Discharge Recommendations Home with 24/7 Assist Available,Home Health Transportation Needs at Discharge Private Vehicle
--- NOTE | 2024-03-03 15:34 | PC.NURSE ---
Addendum entered by Sapna Stanley R.N. 03/03/24 15:41: Елена dressing was changed before discharge and family as well as patient were educated on how to reinforce the dressing if necessary. Original Note: Pt discharged home at 1530, escorted off floor in wheelchair accompanied by spouse, family and hospital staff. IV removed, discharge teaching reviewed including wound care and follow up appointments. Prescriptions were sent to [facility], which is closed today. When this nurse phoned the [employer] polisher operator physician Dr Sosa, he said that the pt received prescriptions before the surgery and he would not transfer the prescriptions to the [facility] as requested by the pt and family. He said that if the pt needs more narcotics, he is supposed to call his primary care physician on tuesday to inquire about getting more. Prescriptions medications were still reviewed with patient and spouse, including which ones are available over the counter if they do not already have them at home. Pt and spouse confirmed understanding. Patient left the floor with all belongings.
== END 2024-03-03 15:42 | disposition home or self-care (01) ==
LOC: OR 08:37 → AC 08:39
PROVIDERS: Student in an Organized Health Care Education/Training Program; Family Provider Family Medicine; PCP Nurse Practitioner Family; Referring Provider Orthopaedic Surgery; Visit Provider Orthopaedic Surgery
PROC: 0SR90JZ Replacement of Right Hip Joint with Synthetic Substitute, Open Approach (ICD-10-PCS; CPT 27130; principal; 2024-03-01 10:45)
DX: M16.11 Unilateral primary osteoarthritis, right hip (principal); M87.051 Idiopathic aseptic necrosis of right femur
CPT/HCPCS: 27130; 36415; 72170; 73502; 82962; 85014; 85018; 85025; 86850; 86900; 86901; 94640; 97116; 97162; 97165; 97530; 97535; C1776; C9290; J0171; J1100; J1171; J2175; J2405; J2704; J3410; J7613

== ENCOUNTER → 2024-03-28 16:01 | Outpatient (CLI) | payer MEDICARE, MEDICAID, OTHER, SELFPAY ==
[2023-09-04 08:50] VITALS: PULSE 54; RESP 18; O2SAT 95
[2024-03-01 14:43] VITALS: BMI 35.9
[2024-03-28 17:09] LABS: Add Manual Diff / Slide Review NO; Basophils Absolute Auto 100 /uL (0-100); Eosinophils Absolute Auto 500 /uL (0-450); Eosinophils Percent Auto 9.1 % (2-4); Hematocrit 31.3 % (41-53); Hemoglobin 10.2 g/dL (13.5-17.5); Lymphocytes Absolute Auto 700 /uL (1100-4500); Lymphocytes Percent Auto 12.6 % (25-40); Mean Corpuscular HGB Conc 32.6 % (30-36); Mean Corpuscular Hemoglobin 27.2 PG (26-34); Mean Corpuscular Volume 83.6 fL (80-100); Monocytes Absolute Auto 500 /uL (0-900); Monocytes Percent Auto 8.8 % (3-14); Neutrophils Absolute Auto 4000 /uL (1500-7000); Neutrophils Percent Auto 67.5 % (50-75); Platelet Count 295 X10^3/uL (150-400); Red Blood Cell Count 3.75 X10^6/uL (4.5-5.9); Red Cell Distribution Width 15.1 % (11.6-14.8); White Blood Cell Count 5.9 X10^3/uL (4.5-11.0)
[2024-03-28 17:16] LABS: C-Reactive Protein Quant 0.9 mg/dL (<1.0)
[2024-03-28 18:43] LABS: Erythrocyte Sedimentation Rate 25 MM/HR (0-15)
== END ==
PROVIDERS: Family Provider Family Medicine; PCP Nurse Practitioner Family; Referring Provider Orthopaedic Surgery; Visit Provider Orthopaedic Surgery
DX: Z96.641 Presence of right artificial hip joint (principal)
CPT/HCPCS: 85025; 85651; 86140

== ENCOUNTER 2024-05-26 12:31 | Emergency (ER) | payer MEDICARE, MEDICAID, SELFPAY ==
[2023-09-04 08:50] VITALS: PULSE 54; RESP 18; O2SAT 95
[2024-03-01 14:43] VITALS: BMI 35.9
[2024-05-26 12:34] VITALS: BP 174/89; PULSE 62; RESP 17; TEMP 36.2; O2SAT 99; BMI 36.0
--- NOTE | 2024-05-26 12:40 | ED_ITS ---
HPI - Recheck/Abnormal Lab/Rx <Sonia Romero PA-C - Last Filed: 05/26/24 15:36> General Chief Complaint: Recheck/Abnormal Lab/Rx Stated Complaint: missed methadone shot Time Seen by Provider: 05/26/24 12:40 Source: patient Mode of arrival: Ambulatory History of Present Illness HPI narrative: Mr. Octaviano Jj Jr is a pleasant 69-year-old male with a past medical history of substance use disorder now on methadone 185 mg with [facility], CHF, CKD, HTN who presents to the emergency department for a missed methadone dose. 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 He presents to the emergency department for this missed dose and he will also have to return tomorrow. Patient has no pain concerns or symptoms at this time and simply needs his methadone dose. He is with his who contributes to the history. Related Data Home Medications Medication Instructions Recorded Confirmed methadone 10 mg tablet 175 mg PO DAILY 07/12/23 03/01/24 fluticasone propionate 44 44 mcg inhalation BID 09/02/23 02/22/24 mcg/actuation HFA aerosol inhaler fluticasone furoate 100 1 inh inhalation DAILY 09/05/23 02/22/24 mcg/actuation blister powder for inhalation (Arnuity Ellipta) acetaminophen 500 mg tablet 1,000 mg PO TID 02/22/24 03/01/24 (Tylenol Extra Strength) clopidogrel 75 mg tablet 75 mg PO DAILY 02/22/24 03/01/24 hydrochlorothiazide 12.5 mg tablet 12.5 mg PO DAILY 02/22/24 03/01/24 losartan 25 mg tablet 25 mg PO DAILY 02/22/24 03/01/24 pantoprazole 40 mg tablet,delayed 40 mg PO DAILY 02/22/24 03/01/24 release Previous Rx's Medication Instructions Recorded carvedilol 25 mg tablet 25 mg PO BID #60 tabs 01/11/22 citalopram 10 mg tablet 20 mg (2 x 10 mg) PO DAILY #30 tabs 09/06/23 aspirin 81 mg tablet,delayed 81 mg PO BID #90 tabs 03/03/24 release ondansetron 4 mg disintegrating 4 mg PO Q6HR PRN nausea and 03/03/24 tablet vomiting #30 tabs oxycodone 5 mg tablet 5 mg PO Q4-6H PRN pain (scale 03/03/24 score 4-6) #10 tabs polyethylene glycol 3350 17 gram 17 g PO DAILY PRN Constipation 03/03/24 oral powder packet #100 ea Allergies Allergy/AdvReac Type Severity Reaction Status Date / Time meloxicam [MELOXICAM] Allergy Severe ANAPHYLAXSI Verified 05/26/24 12:34 S NSAIDS (Non-Steroidal Allergy Severe Swelling Verified 05/26/24 12:34 Anti-Inflamma of Lip/Tongue/Throat Penicillins [PENICILLINS] Allergy Severe Swelling Verified 05/26/24 12:34 of Lip/Tongue/Throat chocolate flavor Allergy Intermediate Swelling Verified 05/26/24 12:34 of Lip/Tongue/Throat peanut Allergy Intermediate Swelling Verified 05/26/24 12:34 of Lip/Tongue/Throat strawberry Allergy Intermediate Swelling Verified 05/26/24 12:34 of Lip/Tongue/Throat celecoxib [From CELEBREX] Allergy Unknown Anaphylaxis Verified 05/26/24 12:34 avocado AdvReac Intermediate Swelling Verified 05/26/24 12:34 of Lip/Tongue/Throat peas AdvReac Intermediate Swelling Verified 05/26/24 12:34 of Lip/Tongue/Throat sulfite AdvReac Intermediate Migraine Verified 05/26/24 12:34 lisinopril [LISINOPRIL] AdvReac Unknown Cough Verified 05/26/24 12:34 Review of Systems <Sonia Romero PA-C - Last Filed: 05/26/24 15:36> Review of Systems ROS Unobtainable: All systems reviewed & are unremarkable except as noted in HPI and below Patient History <Sonia Romero PA-C - Last Filed: 05/26/24 15:36> Medical History Overdose of fentanyl (09/02/23) Chronic neck and back pain Systolic congestive 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, NYHA class 1 Left hemiparesis Stroke Right rib fracture Coronary artery disease Hypertension Surgical History History of cholecystectomy Hx of fusion of cervical spine History of surgery on wrist History of shoulder surgery History of laparotomy Family History Father Parkinsons Mother Cancer Brother Cancer Sister No significant medical problems Social History household members: spouse Smoking Status: Former smoker alcohol intake: former substance use type: does not use Smoking Status: Former smoker tobacco type: cigarettes alcohol intake frequency: holidays/special occasions only Exam <Sonia Romero PA-C - Last Filed: 05/26/24 15:36> Narrative Exam Narrative: GENERAL: 69 year old patient appears stated age. Well-developed patient, in no acute distress. HEAD: Atraumatic. Normocephalic. NECK: Trachea midline. Cervical ROM intact. CARDIOVASCULAR: Regular rate RESPIRATORY: ?Nonlabored respirations. ?Speaking in clear, full sentences. ? NEURO: AOx3. ?Clear speech. ?Moves all 4 extremities appropriately. SKIN: No rash or erythema of visible areas Initial Vital Signs Initial Vital Signs: Vital Signs Temperature 97.2 F L 05/26/24 12:34 Pulse Rate 62 05/26/24 12:34 Respiratory Rate 17 05/26/24 12:34 Blood Pressure 174/89 H 05/26/24 12:34 Pulse Oximetry 99 05/26/24 12:34 Oxygen Delivery Method Room Air 05/26/24 12:34 <Awilda Ceballos MD - Last Filed: 05/26/24 16:13> Initial Vital Signs Initial Vital Signs: Vital Signs Temperature 97.2 F L 05/26/24 12:34 Pulse Rate 62 05/26/24 12:34 Respiratory Rate 17 05/26/24 12:34 Blood Pressure 174/89 H 05/26/24 12:34 Pulse Oximetry 99 05/26/24 12:34 Oxygen Delivery Method Room Air 05/26/24 12:34 Course <Sonia Romero PA-C - Last Filed: 05/26/24 15:36> Orders Ordered: Discontinued Medications Acetaminophen (Acetaminophen 325 Mg Tablet) 650 mg PO NOW ONE Stop: 05/26/24 14:46 Last Admin: 05/26/24 15:15 Dose: 650 mg Documented By: MLEladia Lidocaine (Lidocaine 5% Patch) 1 each TOP NOW ONE Stop: 05/26/24 14:46 Last Admin: 05/26/24 15:15 Dose: 1 each Documented By: MLEladia Methadone HCl (Methadone Intensol 10 Mg/Ml Oral.Conc) 185 mg PO NOW ONE Stop: 05/26/24 14:49 Last Admin: 05/26/24 15:15 Dose: 185 mg Documented By: MLEladia Vital Signs Vital signs: Vital Signs - 8 hr 05/26/24 12:34 05/26/24 15:30 Temperature 97.2 F L Pulse Rate 62 57 L Respiratory Rate 17 18 Blood Pressure 174/89 H 203/95 H Pulse Oximetry 99 100 Oxygen Delivery Method Room Air Room Air <Awilda Ceballos MD - Last Filed: 05/26/24 16:13> Orders Ordered: Discontinued Medications Acetaminophen (Acetaminophen 325 Mg Tablet) 650 mg PO NOW ONE Stop: 05/26/24 14:46 Last Admin: 05/26/24 15:15 Dose: 650 mg Documented By: MLEladia Lidocaine (Lidocaine 5% Patch) 1 each TOP NOW ONE Stop: 05/26/24 14:46 Last Admin: 05/26/24 15:15 Dose: 1 each Documented By: MLEladia Methadone HCl (Methadone Intensol 10 Mg/Ml Oral.Conc) 185 mg PO NOW ONE Stop: 05/26/24 14:49 Last Admin: 05/26/24 15:15 Dose: 185 mg Documented By: IRMA Vital Signs Vital signs: Vital Signs - 8 hr 05/26/24 12:34 05/26/24 15:30 Temperature 97.2 F L Pulse Rate 62 57 L Respiratory Rate 17 18 Blood Pressure 174/89 H 203/95 H Pulse Oximetry 99 100 Oxygen Delivery Method Room Air Room Air MDM - Recheck/Abnormal Lab/Rx <Sonia Romero PA-C - Last Filed: 05/26/24 15:36> Medical Records Attestation: I reviewed the patient's medical records. MDM Narrative Medical decision making narrative: 69-year-old male with a past medical history of substance use disorder now on methadone 185 mg with [facility], CHF, CKD, HTN who presents to the emergency department for a missed methadone dose. Differential diagnosis includes but is not limited to missed medication dose, withdrawal, etc. On exam patient is in no acute distress, nontoxic appearing. Presents for missed methadone dose, contacted clinic to confirm dose however they will not be able to confirm dose for 1 more hour. Patient aware, agreeable to wait. He has no symptoms or other concerns at this time. 1425: [facility] contacted again, they are unable to confirm dose at this time and will call back in 45min when available. 1445: [facility] who confirmed patient has daily methadone dose is 185 mg. Daily methadone dose ordered in addition to acetaminophen and lidocaine patch for patient's chronic right hip pain. ED return precautions discussed with the patient and his , advised follow up with PCP. Patient's blood pressure is elevated, he is history of hypertension, has medications at home. He has not having chest pain or shortness of breath. Encouraged to follow up with his primary care doctor for blood pressure reassessment, he is requesting discharge. Patient verbalized understanding of all information, is ambulatory, stable for discharge home. Discharge Plan Departure Patient Disposition: Home Clinical Impression: Medication dose missed, Methadone use Instructions: DI for Hip Pain Activity Restrictions/Additional Instructions: Dear Mr. Parviz Lyn, Today you were evaluated in the emergency department for missing a dose of methadone. After contacting [facility] to confirm your methadone dose, your provided with your daily dose in the emergency department. Please follow up with your primary care doctor within the next 2-3 days for ER follow-up. (If you do not have a PCP you can call [phone]. ?to schedule an appointment with an [facility] Primary Care Provider) IF YOU DEVELOP ANY NEW OR WORSENING SYMPTOMS, RETURN TO THE ER! Please read the attached instructions, they highlight more specific treatments and interventions for you at home. Thank you for letting me participate in your care, Sonia Romero PA-C Prescriptions: No Action carvedilol 25 mg tablet 25 mg PO BID Qty: 60 0RF Rx Instructions: must administer with a meal/food fluticasone propionate 44 mcg/actuation HFA aerosol inhaler 44 mcg inhalation BID Arnuity Ellipta 100 mcg/actuation blister with device 1 inh inhalation DAILY citalopram 10 mg Tablet 20 mg PO DAILY Qty: 30 0RF methadone 10 mg Tablet 175 mg PO DAILY Patient Comments: Confirmed with Kamilla at [facility] 09/05/23 @ 10:00am clopidogrel 75 mg tablet 75 mg PO DAILY acetaminophen [Tylenol Extra Strength] 500 mg Tablet 1,000 mg PO TID pantoprazole 40 mg tablet,delayed release (DR/EC) 40 mg PO DAILY losartan 25 mg tablet 25 mg PO DAILY hydrochlorothiazide 12.5 mg tablet 12.5 mg PO DAILY aspirin 81 mg Tablet,Delayed Release (Dr/Ec) 81 mg PO BID Qty: 90 0RF ondansetron 4 mg Tablet,Disintegrating 4 mg PO Q6HR PRN (Reason: nausea and vomiting) Qty: 30 0RF polyethylene glycol 3350 17 gram Powder In Packet 17 g PO DAILY PRN (Reason: Constipation) Qty: 100 0RF oxycodone 5 mg tablet 5 mg PO Q4-6H PRN (Reason: pain (scale score 4-6)) Qty: 10 0RF Referrals: Pat Pisano ARNP [Primary Care Provider] - Stand Alone Forms: Patient Portal/API/Survey ED Sign-out <Awilda Ceballos MD - Last Filed: 05/26/24 16:13> Cosign ED Attending Cosignature Attestation: I did not see this patient. I was available all times for consultation.
[2024-05-26] MEDS: METHADONE INTENSOL 10 MG/ML ORAL.CONC 185 MG PO (15:15)
[2024-05-26] MEDS: LIDOCAINE 5% PATCH 1 EACH TOP (15:15)
[2024-05-26] MEDS: ACETAMINOPHEN 325 MG TABLET 650 MG PO (15:15)
[2024-05-26 15:30] VITALS: BP 203/95; PULSE 57; RESP 18; O2SAT 100
== END 2024-05-26 15:30 | disposition home or self-care (01) ==
PROVIDERS: Emergency Provider Physician Assistant; Family Provider Family Medicine; PCP Nurse Practitioner Family
DX: F11.90 Opioid use, unspecified, uncomplicated (principal); Z91.138 Patient's unintentional underdosing of medication regimen for other reason
CPT/HCPCS: 99283

== ENCOUNTER 2024-05-27 15:41 | Emergency (ER) | payer MEDICARE, MEDICAID, SELFPAY ==
[2023-09-04 08:50] VITALS: PULSE 54; RESP 18; O2SAT 95
[2024-03-01 14:43] VITALS: BMI 35.9
[2024-05-27 15:45] VITALS: BP 151/77; PULSE 71; RESP 17; TEMP 36.1; O2SAT 100; BMI 36.0
--- NOTE | 2024-05-27 16:00 | ED_ITS ---
HPI - Recheck/Abnormal Lab/Rx <Sonia Romero PA-C - Last Filed: 05/27/24 16:38> General Chief Complaint: Recheck/Abnormal Lab/Rx Stated Complaint: methodone dose missed Time Seen by Provider: 05/27/24 15:52 Source: patient Mode of arrival: Ambulatory History of Present Illness HPI narrative: Mr. Parviz Lyn is a very pleasant 69-year-old male, 185 mg daily methadone use, who presents to the emergency department for missed methadone dose. He goes to [facility] for his daily methadone however yesterday he went after they closed therefore he was unable to receive his Tuesday and Tuesday dose. I saw him in the ED yesterday, called his clinic to confirm his dose. He is here today for his 185 mg methadone dose. No other concerns or complaints at this time. Related Data Home Medications Medication Instructions Recorded Confirmed methadone 10 mg tablet 175 mg PO DAILY 07/12/23 03/01/24 fluticasone propionate 44 44 mcg inhalation BID 09/02/23 02/22/24 mcg/actuation HFA aerosol inhaler fluticasone furoate 100 1 inh inhalation DAILY 09/05/23 02/22/24 mcg/actuation blister powder for inhalation (Arnuity Ellipta) acetaminophen 500 mg tablet 1,000 mg PO TID 02/22/24 03/01/24 (Tylenol Extra Strength) clopidogrel 75 mg tablet 75 mg PO DAILY 02/22/24 03/01/24 hydrochlorothiazide 12.5 mg tablet 12.5 mg PO DAILY 02/22/24 03/01/24 losartan 25 mg tablet 25 mg PO DAILY 02/22/24 03/01/24 pantoprazole 40 mg tablet,delayed 40 mg PO DAILY 02/22/24 03/01/24 release Previous Rx's Medication Instructions Recorded carvedilol 25 mg tablet 25 mg PO BID #60 tabs 01/11/22 citalopram 10 mg tablet 20 mg (2 x 10 mg) PO DAILY #30 tabs 09/06/23 aspirin 81 mg tablet,delayed 81 mg PO BID #90 tabs 03/03/24 release ondansetron 4 mg disintegrating 4 mg PO Q6HR PRN nausea and 03/03/24 tablet vomiting #30 tabs oxycodone 5 mg tablet 5 mg PO Q4-6H PRN pain (scale 03/03/24 score 4-6) #10 tabs polyethylene glycol 3350 17 gram 17 g PO DAILY PRN Constipation 03/03/24 oral powder packet #100 ea lidocaine 5 % topical patch 1 patch topical DAILY #15 ea 05/27/24 (Lidoderm) Allergies Allergy/AdvReac Type Severity Reaction Status Date / Time meloxicam [MELOXICAM] Allergy Severe ANAPHYLAXSI Verified 05/27/24 15:45 S NSAIDS (Non-Steroidal Allergy Severe Swelling Verified 05/27/24 15:45 Anti-Inflamma of Lip/Tongue/Throat Penicillins [PENICILLINS] Allergy Severe Swelling Verified 05/27/24 15:45 of Lip/Tongue/Throat chocolate flavor Allergy Intermediate Swelling Verified 05/27/24 15:45 of Lip/Tongue/Throat peanut Allergy Intermediate Swelling Verified 05/27/24 15:45 of Lip/Tongue/Throat strawberry Allergy Intermediate Swelling Verified 05/27/24 15:45 of Lip/Tongue/Throat celecoxib [From CELEBREX] Allergy Unknown Anaphylaxis Verified 05/27/24 15:45 avocado AdvReac Intermediate Swelling Verified 05/27/24 15:45 of Lip/Tongue/Throat peas AdvReac Intermediate Swelling Verified 05/27/24 15:45 of Lip/Tongue/Throat sulfite AdvReac Intermediate Migraine Verified 05/27/24 15:45 lisinopril [LISINOPRIL] AdvReac Unknown Cough Verified 05/27/24 15:45 Review of Systems <Sonia Romero PA-C - Last Filed: 05/27/24 16:38> Review of Systems ROS Unobtainable: All systems reviewed & are unremarkable except as noted in HPI and below Patient History <Sonia Romero PA-C - Last Filed: 05/27/24 16:38> Medical History Overdose of fentanyl (09/02/23) Chronic neck and back pain Systolic congestive 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, NYHA class 1 Left hemiparesis Stroke Right rib fracture Coronary artery disease Hypertension Surgical History History of cholecystectomy Hx of fusion of cervical spine History of surgery on wrist History of shoulder surgery History of laparotomy Family History Father Parkinsons Mother Cancer Brother Cancer Sister No significant medical problems Social History household members: spouse Smoking Status: Former smoker alcohol intake: former substance use type: does not use Smoking Status: Former smoker tobacco type: cigarettes alcohol intake frequency: holidays/special occasions only Exam <Sonia Romero PA-C - Last Filed: 05/27/24 16:38> Narrative Exam Narrative: GENERAL: 69 year old patient appears stated age. Well-developed patient, in no acute distress. HEAD: Atraumatic. Normocephalic. CARDIOVASCULAR: Regular rate RESPIRATORY: ?Nonlabored respirations. ?Speaking in clear, full sentences. BACK: Nontender without deformity or crepitance. No flank tenderness. NEURO: AOx3. ?Clear speech. ?Moves all 4 extremities appropriately. SKIN: No rash or erythema of visible areas Initial Vital Signs Initial Vital Signs: Vital Signs Temperature 97.0 F L 05/27/24 15:45 Pulse Rate 71 05/27/24 15:45 Respiratory Rate 17 05/27/24 15:45 Blood Pressure 151/77 H 05/27/24 15:45 Pulse Oximetry 100 05/27/24 15:45 Oxygen Delivery Method Room Air 05/27/24 15:45 <Awidla Ceballos MD - Last Filed: 05/27/24 16:42> Initial Vital Signs Initial Vital Signs: Vital Signs Temperature 97.0 F L 05/27/24 15:45 Pulse Rate 71 05/27/24 15:45 Respiratory Rate 17 05/27/24 15:45 Blood Pressure 151/77 H 05/27/24 15:45 Pulse Oximetry 100 05/27/24 15:45 Oxygen Delivery Method Room Air 05/27/24 15:45 Course <Sonia Romero PA-C - Last Filed: 05/27/24 16:38> Orders Ordered: Discontinued Medications Lidocaine (Lidocaine 5% Patch) 1 each TOP NOW ONE Stop: 05/27/24 16:34 Methadone HCl (Methadone Intensol 10 Mg/Ml Oral.Conc) 185 mg PO NOW ONE Stop: 05/27/24 16:03 Last Admin: 05/27/24 16:28 Dose: 185 mg Documented By: SB Vital Signs Vital signs: Vital Signs - 8 hr 05/27/24 15:45 Temperature 97.0 F L Pulse Rate 71 Respiratory Rate 17 Blood Pressure 151/77 H Pulse Oximetry 100 Oxygen Delivery Method Room Air <Awilda Ceballos MD - Last Filed: 05/27/24 16:42> Orders Ordered: Discontinued Medications Lidocaine (Lidocaine 5% Patch) 1 each TOP NOW ONE Stop: 05/27/24 16:34 Methadone HCl (Methadone Intensol 10 Mg/Ml Oral.Conc) 185 mg PO NOW ONE Stop: 05/27/24 16:03 Last Admin: 05/27/24 16:28 Dose: 185 mg Documented By: SB Vital Signs Vital signs: Vital Signs - 8 hr 05/27/24 15:45 Temperature 97.0 F L Pulse Rate 71 Respiratory Rate 17 Blood Pressure 151/77 H Pulse Oximetry 100 Oxygen Delivery Method Room Air MDM - Recheck/Abnormal Lab/Rx <Sonia Romero PA-C - Last Filed: 05/27/24 16:38> Medical Records Attestation: I reviewed the patient's medical records. MDM Narrative Medical decision making narrative: 69-year-old male, 185 mg daily methadone use, who presents to the emergency department for missed methadone dose. He goes to [facility] for his daily methadone however yesterday he went after they closed therefore he was unable to receive his Tuesday and Tuesday dose. I saw him in the ED yesterday, called his clinic to confirm his dose. 185 mg methadone dose given in the emergency department today. He was also requesting lidocaine patches for chronic right hip pain which I provided him with. Discussed ED return precautions. Follow up with PCP. Patient verbalized understanding of all information is stable for discharge home. Discharge Plan Departure Patient Disposition: Home Clinical Impression: Medication dose missed, Methadone use Activity Restrictions/Additional Instructions: Today you were provided with your missed dose of methadone. You have also been prescribed lidocaine patches if needed for chronic right hip pain. Please follow up with your primary care doctor within the next 2-3 days for ER follow-up. (If you do not have a PCP you can call [phone]. ?to schedule an appointment with an [facility] Primary Care Provider) IF YOU DEVELOP ANY NEW OR WORSENING SYMPTOMS, RETURN TO THE ER! Please read the attached instructions, they highlight more specific treatments and interventions for you at home. Thank you for letting me participate in your care, Sonia Romero PA-C Prescriptions: New lidocaine [Lidoderm] 5 % adhesive patch,medicated 1 patch topical DAILY Qty: 15 0RF Rx Instructions: leave on most painful area for up to 12 hrs No Action carvedilol 25 mg tablet 25 mg PO BID Qty: 60 0RF Rx Instructions: must administer with a meal/food fluticasone propionate 44 mcg/actuation HFA aerosol inhaler 44 mcg inhalation BID Arnuity Ellipta 100 mcg/actuation blister with device 1 inh inhalation DAILY citalopram 10 mg Tablet 20 mg PO DAILY Qty: 30 0RF methadone 10 mg Tablet 175 mg PO DAILY Patient Comments: Confirmed with Kamilla at [facility] 09/05/23 @ 10:00am clopidogrel 75 mg tablet 75 mg PO DAILY acetaminophen [Tylenol Extra Strength] 500 mg Tablet 1,000 mg PO TID pantoprazole 40 mg tablet,delayed release (DR/EC) 40 mg PO DAILY losartan 25 mg tablet 25 mg PO DAILY hydrochlorothiazide 12.5 mg tablet 12.5 mg PO DAILY aspirin 81 mg Tablet,Delayed Release (Dr/Ec) 81 mg PO BID Qty: 90 0RF ondansetron 4 mg Tablet,Disintegrating 4 mg PO Q6HR PRN (Reason: nausea and vomiting) Qty: 30 0RF polyethylene glycol 3350 17 gram Powder In Packet 17 g PO DAILY PRN (Reason: Constipation) Qty: 100 0RF oxycodone 5 mg tablet 5 mg PO Q4-6H PRN (Reason: pain (scale score 4-6)) Qty: 10 0RF Referrals: Pat Pisano ARNP [Primary Care Provider] - Stand Alone Forms: Patient Portal/API/Survey ED Sign-out <Awilda Ceballos MD - Last Filed: 05/27/24 16:42> Cosign ED Attending Cosluliature Attestation: I did not see this patient. I was available all times for consultation.
[2024-05-27] MEDS: METHADONE INTENSOL 10 MG/ML ORAL.CONC 185 MG PO (16:28)
[2024-05-27] MEDS: LIDOCAINE 5% PATCH 1 EACH TOP (16:47)
== END 2024-05-27 16:50 | disposition home or self-care (01) ==
PROVIDERS: Emergency Provider Physician Assistant; Family Provider Family Medicine; PCP Nurse Practitioner Family
DX: F11.90 Opioid use, unspecified, uncomplicated (principal); Z91.138 Patient's unintentional underdosing of medication regimen for other reason; Z88.2 Allergy status to sulfonamides; Z86.79 Personal history of other diseases of the circulatory system; I10 Essential (primary) hypertension
CPT/HCPCS: 99283

== ENCOUNTER 2024-06-26 19:29 | Emergency (ER) | payer MEDICARE, SELFPAY ==
[2023-09-04 08:50] VITALS: PULSE 54; RESP 18; O2SAT 95
[2024-03-01 14:43] VITALS: BMI 35.9
[2024-06-26 19:46] VITALS: BP 163/77; PULSE 68; RESP 18; TEMP 37; O2SAT 97; BMI 36.6
--- NOTE | 2024-06-26 19:52 | DI.RAD.S_ITS ---
PROCEDURE: XR ANKLE RT MIN 3V INDICATIONS: rolled/twisted 2 days ago TECHNIQUE: 3 views of the ankle were acquired. COMPARISON: None. FINDINGS: Bones: No fractures or dislocations. Ankle mortise is normally aligned. No suspicious bony lesions. Soft tissues: No tibiotalar joint effusion. Achilles tendon appears normal. IMPRESSION: No acute osseous abnormality. If pain persists with conservative management, consider repeat x-ray in 10-14 days or cross-sectional imaging. Dictated by: Rafal He M.D. on 06/26/2024 at 20:12 Approved by: Rafal He M.D. on 06/26/2024 at 20:12
--- NOTE | 2024-06-27 00:59 | ED.LOWEXIN ---
HPI - Extremity Injury (Lower) General Chief Complaint: Extremity Injury, Lower Stated Complaint: rt foot injury 2 days ago Time Seen by Provider: 06/27/24 00:59 Source: patient Mode of arrival: Ambulatory History of Present Illness HPI Narrative: 69-year-old male history of CHF on methadone comes into the ED from home for evaluation of right ankle pain. He states that he thinks that he twisted/rolled his ankle a few days ago and has had persistent pain to that. He denies any other injuries denies any falls. He states that he does have a chronic ?skin issue to the back of his heel has been ongoing persistent for the past several months to years. However he denies any worsening of this. He denies any other symptoms at this time. Related Data Home Medications Medication Instructions Recorded Confirmed methadone 10 mg tablet 175 mg PO DAILY 07/12/23 03/01/24 fluticasone propionate 44 44 mcg inhalation BID 09/02/23 02/22/24 mcg/actuation HFA aerosol inhaler fluticasone furoate 100 1 inh inhalation DAILY 09/05/23 02/22/24 mcg/actuation blister powder for inhalation (Arnuity Ellipta) acetaminophen 500 mg tablet 1,000 mg PO TID 02/22/24 03/01/24 (Tylenol Extra Strength) clopidogrel 75 mg tablet 75 mg PO DAILY 02/22/24 03/01/24 hydrochlorothiazide 12.5 mg tablet 12.5 mg PO DAILY 02/22/24 03/01/24 losartan 25 mg tablet 25 mg PO DAILY 02/22/24 03/01/24 pantoprazole 40 mg tablet,delayed 40 mg PO DAILY 02/22/24 03/01/24 release Previous Rx's Medication Instructions Recorded carvedilol 25 mg tablet 25 mg PO BID #60 tabs 01/11/22 citalopram 10 mg tablet 20 mg (2 x 10 mg) PO DAILY #30 tabs 09/06/23 aspirin 81 mg tablet,delayed 81 mg PO BID #90 tabs 03/03/24 release ondansetron 4 mg disintegrating 4 mg PO Q6HR PRN nausea and 03/03/24 tablet vomiting #30 tabs oxycodone 5 mg tablet 5 mg PO Q4-6H PRN pain (scale 03/03/24 score 4-6) #10 tabs polyethylene glycol 3350 17 gram 17 g PO DAILY PRN Constipation 03/03/24 oral powder packet #100 ea lidocaine 5 % topical patch 1 patch topical DAILY #15 ea 05/27/24 (Lidoderm) Allergies Allergy/AdvReac Type Severity Reaction Status Date / Time meloxicam [MELOXICAM] Allergy Severe ANAPHYLAXSI Verified 05/27/24 15:45 S NSAIDS (Non-Steroidal Allergy Severe Swelling Verified 05/27/24 15:45 Anti-Inflamma of Lip/Tongue/Throat Penicillins [PENICILLINS] Allergy Severe Swelling Verified 05/27/24 15:45 of Lip/Tongue/Throat chocolate flavor Allergy Intermediate Swelling Verified 05/27/24 15:45 of Lip/Tongue/Throat peanut Allergy Intermediate Swelling Verified 05/27/24 15:45 of Lip/Tongue/Throat strawberry Allergy Intermediate Swelling Verified 05/27/24 15:45 of Lip/Tongue/Throat celecoxib [From CELEBREX] Allergy Unknown Anaphylaxis Verified 05/27/24 15:45 avocado AdvReac Intermediate Swelling Verified 05/27/24 15:45 of Lip/Tongue/Throat peas AdvReac Intermediate Swelling Verified 05/27/24 15:45 of Lip/Tongue/Throat sulfite AdvReac Intermediate Migraine Verified 05/27/24 15:45 lisinopril [LISINOPRIL] AdvReac Unknown Cough Verified 05/27/24 15:45 Review of Systems Review of Systems Narrative: General: Denies fever, chills, weight loss HEENT: Denies headache, eye drainage, eye irritation, head trauma, sore throat, voice change Cardiovascular: Denies any chest pain, palpitations, shortness of breath, tachycardia Respiratory: Denies any shortness of breath, cough, wheeze, stridor GI/: Denies any abdominal pain, nausea, vomiting, diarrhea, bright red blood per rectum, melanotic stools, urinary frequency, urinary retention, dysuria, hematuria MSK: Positive right ankle pain Skin: Denies any rashes, lesions, discoloration Neuro: Denies any headache, lightheadedness, dizziness, fainting, weakness Psych: Denies SI/HI Patient History Medical History Overdose of fentanyl (09/02/23) Chronic neck and back pain Systolic congestive 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, NYHA class 1 Left hemiparesis Stroke Right rib fracture Coronary artery disease Hypertension Surgical History History of cholecystectomy Hx of fusion of cervical spine History of surgery on wrist History of shoulder surgery History of laparotomy Family History Father Parkinsons Mother Cancer Brother Cancer Sister No significant medical problems Social History household members: spouse Smoking Status: Former smoker alcohol intake: former substance use type: does not use Smoking Status: Former smoker tobacco type: cigarettes alcohol intake frequency: holidays/special occasions only Exam Narrative Exam Narrative: General: Cooperative, comfortable, well-developed, not in acute distress HEENT: Normocephalic, atraumatic, PERRLA, normal sclera, eyelids normal, Neck: Active full range of motion, atraumatic Chest: Normal to inspection, negative crepitus, no overlying erythema ecchymosis Respiratory: Normal respiratory effort, not in acute respiratory distress, clear to auscultation bilaterally negative cough, wheeze, tachypnea, rhonchi, rales Cardiology: Regular rate rhythm negative gallop, murmur, rubs GI/: Normal to inspection, soft, nonrigid, no tenderness to palpation, exam deferred MSK: Right ankle neurovascularly intact no overlying erythema ecchymosis, mild tenderness to palpation of the ankle joint however no warmth to touch, there does appear to be thickened skin to the back of the heel not actively bleeding no discharge, no micro motion tenderness Skin: No rashes lesions noted Neuro: Alert awake oriented x3, moves all 4 extremities spontaneously, cranial nerves intact, able to answer all questions appropriately follows commands appropriately Psych: Cooperative, negative suicidal or homicidal ideations Initial Vital Signs Initial Vital Signs: Vital Signs Temperature 98.6 F 06/26/24 19:46 Pulse Rate 68 06/26/24 19:46 Respiratory Rate 18 06/26/24 19:46 Blood Pressure 163/77 H 06/26/24 19:46 Pulse Oximetry 97 06/26/24 19:46 Oxygen Delivery Method Room Air 06/26/24 19:46 Course Orders Ordered: ED Orders 06/26/24 19:52 XR ankle RT min 3V Stat Vital Signs Vital signs: Vital Signs - 8 hr 06/26/24 19:46 Temperature 98.6 F Pulse Rate 68 Respiratory Rate 18 Blood Pressure 163/77 H Pulse Oximetry 97 Oxygen Delivery Method Room Air MDM - Extremity Injury (Lower) Differential Diagnosis Differential diagnosis: Likely other (Ankle fracture, ankle sprain, cellulitis) Imaging Data X-ray foot: Radiologist's Impression: [address] [address] XRay Report Signed Patient: Octaviano Jj Jr MR#: [id number] : 1955 Acct:[id number] Age/Sex: 69 / M Date of Service: 06/26/24 Loc: ED Accession Number: [id number] Procedure: XR ankle RT min 3V Ordering Provider: Teofilo Love D.O. PROCEDURE: XR ANKLE RT MIN 3V INDICATIONS: rolled/twisted 2 days ago TECHNIQUE: 3 views of the ankle were acquired. COMPARISON: None. FINDINGS: Bones: No fractures or dislocations. Ankle mortise is normally aligned. No suspicious bony lesions. Soft tissues: No tibiotalar joint effusion. Achilles tendon appears normal. IMPRESSION: No acute osseous abnormality. If pain persists with conservative management, consider repeat x-ray in 10-14 days or cross-sectional imaging. [facility] Narrative Medical decision making narrative: 69-year-old male with a history of polysubstance abuse, on methadone CHF presents for right ankle pain after he twisted it several days ago states he has been having persistent pain to it. He also is wanting to have his chronic skin issue to the back of his foot looked at. There is no ulceration to the area just thickened/dry skin no erythema no cellulitis no purulent discharge ankle without any micro motion tenderness neurovascularly intact. Symptoms imaging physical exam were consistent with an ankle strain/sprain. Patient will be placed in a ankle support instructed to follow up with primary care and orthopedic surgery in outpatient setting patient verbalized understanding of this and agrees to being discharged home with outpatient follow up. Strict return precautions given he verbalized understanding of this and agrees to being discharged home with outpatient follow up Discharge Plan Departure Patient Disposition: Home Clinical Impression: Ankle pain, right Instructions: DI for Ankle Sprain Activity Restrictions/Additional Instructions: Please follow up primary care and orthopedic surgery Please read the discharge instructions sheet carefully and bring all papers to all doctor follow-up visits, as it may contain information that your doctor may want to see. Disease processes change and evolve, if your symptoms worsen or if you develop any new symptoms that are concerning to you please return for evaluation. Your evaluation today does not show any evidence of any life-threatening/serious illnesses requiring admission to the hospital or surgery. Please follow-up with your doctor for re-evaluation in approximately 1 day. Seek immediate medical attention for any worrisome symptoms. *If you do not have a primary care provider please contact the [facility] Resource line at [phone]. They will ask some questions about your medical history and help get you set up with a doctor in the community. Prescriptions: No Action carvedilol 25 mg tablet 25 mg PO BID Qty: 60 0RF Rx Instructions: must administer with a meal/food fluticasone propionate 44 mcg/actuation HFA aerosol inhaler 44 mcg inhalation BID Arnuity Ellipta 100 mcg/actuation blister with device 1 inh inhalation DAILY citalopram 10 mg Tablet 20 mg PO DAILY Qty: 30 0RF lidocaine [Lidoderm] 5 % adhesive patch,medicated 1 patch topical DAILY Qty: 15 0RF Rx Instructions: leave on most painful area for up to 12 hrs methadone 10 mg Tablet 175 mg PO DAILY Patient Comments: Confirmed with Kamilla at [facility] 09/05/23 @ 10:00am clopidogrel 75 mg tablet 75 mg PO DAILY acetaminophen [Tylenol Extra Strength] 500 mg Tablet 1,000 mg PO TID pantoprazole 40 mg tablet,delayed release (DR/EC) 40 mg PO DAILY losartan 25 mg tablet 25 mg PO DAILY hydrochlorothiazide 12.5 mg tablet 12.5 mg PO DAILY aspirin 81 mg Tablet,Delayed Release (Dr/Ec) 81 mg PO BID Qty: 90 0RF ondansetron 4 mg Tablet,Disintegrating 4 mg PO Q6HR PRN (Reason: nausea and vomiting) Qty: 30 0RF polyethylene glycol 3350 17 gram Powder In Packet 17 g PO DAILY PRN (Reason: Constipation) Qty: 100 0RF oxycodone 5 mg tablet 5 mg PO Q4-6H PRN (Reason: pain (scale score 4-6)) Qty: 10 0RF Referrals: Pat Pisano ARNP [Primary Care Provider] - Stand Alone Forms: Patient Portal/API/Survey
[2024-06-27 01:00] VITALS: PULSE 65; O2SAT 94
[2024-06-27 01:01] VITALS: BP 189/87; PULSE 66; RESP 17; O2SAT 94
== END 2024-06-27 01:34 | disposition home or self-care (01) ==
PROVIDERS: Emergency Provider Student in an Organized Health Care Education/Training Program; Family Provider Family Medicine; PCP Nurse Practitioner Family
DX: M25.571 Pain in right ankle and joints of right foot (principal); R23.4 Changes in skin texture; X50.1XXA Overexertion from prolonged static or awkward postures, initial encounter
CPT/HCPCS: 73610; 99281; 99283

== ENCOUNTER 2024-07-28 15:12 | Emergency (ER) | payer MEDICARE, MEDICAID, SELFPAY ==
[2023-09-04 08:50] VITALS: PULSE 54; RESP 18; O2SAT 95
[2024-03-01 14:43] VITALS: BMI 35.9
[2024-07-28] VITALS (25 sets, daily range): BP systolic 166–213; BP diastolic 75–95; PULSE 55–69; RESP 13–42; TEMP 36.9; O2SAT 90–98; BMI 36.8
--- NOTE | 2024-07-28 15:32 | DI.RAD.S_ITS ---
PROCEDURE: XR CHEST 1V INDICATIONS: Shortness of breath TECHNIQUE: One view of the chest was acquired. COMPARISON: [facility], , XR CHEST 1V, 09/02/2023, 22:18. [facility], CR, XR CHEST 1V, 09/03/2023, 10:29. FINDINGS: Surgical changes and devices: The known epigastric postoperative changes are not well seen on this study. Lungs and pleura: An incomplete inspiratory result is noted, causing a crowded appearance to the lung markings. No focal infiltrates are seen. No pneumothorax or significant pleural effusions are seen. Mediastinum: Mediastinal contours appear normal. Heart size is normal. Bones and chest wall: No suspicious bony lesions. Age-appropriate bony degenerative changes are seen. Overlying soft tissues appear unremarkable. IMPRESSION: Portable chest within normal limits for age. Dictated by: Hugo Lagos M.D. on 07/28/2024 at 15:19 Approved by: Hugo Lagos M.D. on 07/28/2024 at 15:20
[2024-07-28] MEDS: ALBUTEROL/IPRATROPIUM 3 ML AMPUL INH ×2 (15:48→22:46)
--- NOTE | 2024-07-28 15:57 | EKG_ITS ---
[facility] [address] [place] [address] Test Date: 2024-07-28 Pat Name: Octaviano Jj Jr Department: 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
[2024-07-28 16:03] LABS: Add Manual Diff / Slide Review NO; Basophils Absolute Auto 0 /uL (0-100); Basophils Percent Auto 0.8 % (0-2); Eosinophils Absolute Auto 0 /uL (0-450); Eosinophils Percent Auto 1.3 % (2-4); Hematocrit 37.6 % (41-53); Hemoglobin 12.2 g/dL (13.5-17.5); Lymphocytes Absolute Auto 500 /uL (1100-4500); Lymphocytes Percent Auto 12.1 % (25-40); Mean Corpuscular HGB Conc 32.5 % (30-36); Mean Corpuscular Hemoglobin 26.6 PG (26-34); Mean Corpuscular Volume 81.6 fL (80-100); Monocytes Absolute Auto 700 /uL (0-900); Monocytes Percent Auto 17.3 % (3-14); Neutrophils Absolute Auto 2600 /uL (1500-7000); Neutrophils Percent Auto 68.5 % (50-75); Platelet Count 237 X10^3/uL (150-400); Red Blood Cell Count 4.61 X10^6/uL (4.5-5.9); Red Cell Distribution Width 16.5 % (11.6-14.8); White Blood Cell Count 3.8 X10^3/uL (4.5-11.0)
[2024-07-28 16:13] LABS: INR 1.1 (0.9-1.3); Prothrombin Time 11.9 SECONDS (9.4-12.5)
[2024-07-28 16:14] LABS: Alanine Aminotransferase 26 IU/L (<50); Albumin 4.4 g/dL (3.5-5.0); Albumin Globulin Ratio 1.2 (1.0-2.8); Alkaline Phosphatase 114 U/L (38-126); Aspartate Aminotransferase 42 IU/L (17-59); BUN Creatinine Ratio 20.4 (6-22); Bilirubin Total 0.4 mg/dL (0.2-1.3); Blood Urea Nitrogen 22 mg/dL (9-20); Calcium 8.9 mg/dL (8.4-10.2); Carbon Dioxide 30 mmol/L (22-32); Chloride 98 mmol/L (98-107); Estimated Glomerular Filt Rate > 60 mL/min (>60); Globulin 3.7 g/dL (1.7-4.1); Glucose 93 mg/dL (80-110); HEMOLYSIS < 15 (0-50); Potassium 3.8 mmol/L (3.4-5.1); Sodium 136 mmol/L (137-145); Total Protein 8.1 g/dL (6.3-8.2)
[2024-07-28 16:15] LABS: Lactate (Lactic Acid) 0.9 mmol/L (0.7-2.1)
[2024-07-28 16:26] LABS: NT-proBNP (BNP-Adult 18+) 1360 pg/mL (<125); Troponin I < 0.012 ng/mL (0.01-0.034)
[2024-07-28 16:39] LABS: Influenza A - CEPHEID Flu A NEGATIVE (NEGATIVE); Influenza B - CEPHEID Flu B POSITIVE (NEGATIVE); Respiratory Syncytial Virus Negative (Negative)
[2024-07-28 16:42] LABS: COVID-19 CEPHEID 4-PLEX PCR Negative (Negative)
--- NOTE | 2024-07-28 19:44 | ED_ITS ---
HPI - General Adult General Chief complaint: Shortness of Breath/Dyspnea Stated complaint: cough, congestion, hard to breathe Time Seen by Provider: 07/28/24 18:05 Source: patient Mode of arrival: Ambulatory History of Present Illness HPI narrative: 69-year-old gentleman with a history of congestive heart failure, hypertension, reflux, methadone for chronic pain related to his right foot comes in with complaints of 3-4 days of body aches low-grade fevers and increase in wheezing and overall work of breathing. He has had low-grade fevers, cough that is nonproductive. No palpitations, mild nausea but no vomiting or diarrhea. Related Data Home Medications Medication Instructions Recorded Confirmed methadone 10 mg tablet 175 mg PO DAILY 07/12/23 03/01/24 fluticasone propionate 44 44 mcg inhalation BID 09/02/23 02/22/24 mcg/actuation HFA aerosol inhaler fluticasone furoate 100 1 inh inhalation DAILY 09/05/23 02/22/24 mcg/actuation blister powder for inhalation (Arnuity Ellipta) acetaminophen 500 mg tablet 1,000 mg PO TID 02/22/24 03/01/24 (Tylenol Extra Strength) clopidogrel 75 mg tablet 75 mg PO DAILY 02/22/24 03/01/24 hydrochlorothiazide 12.5 mg tablet 12.5 mg PO DAILY 02/22/24 03/01/24 losartan 25 mg tablet 25 mg PO DAILY 02/22/24 03/01/24 pantoprazole 40 mg tablet,delayed 40 mg PO DAILY 02/22/24 03/01/24 release Previous Rx's Medication Instructions Recorded carvedilol 25 mg tablet 25 mg PO BID #60 tabs 01/11/22 citalopram 10 mg tablet 20 mg (2 x 10 mg) PO DAILY #30 tabs 09/06/23 aspirin 81 mg tablet,delayed 81 mg PO BID #90 tabs 03/03/24 release ondansetron 4 mg disintegrating 4 mg PO Q6HR PRN nausea and 03/03/24 tablet vomiting #30 tabs oxycodone 5 mg tablet 5 mg PO Q4-6H PRN pain (scale 03/03/24 score 4-6) #10 tabs polyethylene glycol 3350 17 gram 17 g PO DAILY PRN Constipation 03/03/24 oral powder packet #100 ea lidocaine 5 % topical patch 1 patch topical DAILY #15 ea 01/26/25 (Lidoderm) furosemide 20 mg tablet 20 mg PO DAILY #5 tabs 07/28/24 prednisone 20 mg tablet 20 mg PO DAILY #7 tabs 07/28/24 Allergies Allergy/AdvReac Type Severity Reaction Status Date / Time meloxicam [MELOXICAM] Allergy Severe ANAPHYLAXSI Verified 05/27/24 15:45 S NSAIDS (Non-Steroidal Allergy Severe Swelling Verified 05/27/24 15:45 Anti-Inflamma of Lip/Tongue/Throat Penicillins [PENICILLINS] Allergy Severe Swelling Verified 05/27/24 15:45 of Lip/Tongue/Throat chocolate flavor Allergy Intermediate Swelling Verified 05/27/24 15:45 of Lip/Tongue/Throat peanut Allergy Intermediate Swelling Verified 05/27/24 15:45 of Lip/Tongue/Throat strawberry Allergy Intermediate Swelling Verified 05/27/24 15:45 of Lip/Tongue/Throat celecoxib [From CELEBREX] Allergy Unknown Anaphylaxis Verified 05/27/24 15:45 avocado AdvReac Intermediate Swelling Verified 05/27/24 15:45 of Lip/Tongue/Throat peas AdvReac Intermediate Swelling Verified 05/27/24 15:45 of Lip/Tongue/Throat sulfite AdvReac Intermediate Migraine Verified 05/27/24 15:45 lisinopril [LISINOPRIL] AdvReac Unknown Cough Verified 05/27/24 15:45 Review of Systems Review of Systems Narrative: Pertinent positive and negative findings as per HPI Patient History Medical History Overdose of fentanyl (09/02/23) Chronic neck and back pain Systolic congestive 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, NYHA class 1 Left hemiparesis Stroke Right rib fracture Coronary artery disease Hypertension Surgical History History of cholecystectomy Hx of fusion of cervical spine History of surgery on wrist History of shoulder surgery History of laparotomy Family History Father Parkinsons Mother Cancer Brother Cancer Sister No significant medical problems Social History household members: spouse Smoking Status: Former smoker alcohol intake: former substance use type: does not use Smoking Status: Former smoker tobacco type: cigarettes alcohol intake frequency: holidays/special occasions only Exam Initial Vital Signs Initial Vital Signs: Vital Signs Temperature 98.4 F 07/28/24 15:28 Pulse Rate 67 07/28/24 15:28 Respiratory Rate 26 H 07/28/24 15:28 Blood Pressure 213/95 H 07/28/24 15:28 Pulse Oximetry 97 07/28/24 15:28 Oxygen Delivery Method Room Air 07/28/24 15:28 General: Chronically ill-appearing, audible wheeze, appears to feel unwell but not acutely toxic HEENT: Moist mucous membranes, normal sclera with reactive pupils, Respiratory: Poor overall air movement with significant wheeze in upper lung abreu, due to poor air movement lower lung abreu are difficult to more completely evaluate Cardiac: Regular rate and rhythm no murmurs no bruits Abdomen: Soft, nontender, no rebound or guarding, no flank pain Skin: Warm and dry, well-perfused Neurologic: Globally weak but otherwise Grossly neurologically intact with no obvious asymmetries or abnormalities Extremities: Walking boot in the right lower extremity Psych: Cooperative, appropriate insight and affect Course Orders Ordered: ED Orders 07/28/24 15:32 XR chest 1V Stat EKG-12 Lead Stat Measure peak expiratory flow ONCE RT Consult Eval and Treat NOW 07/28/24 15:58 Complete Blood Count AUTO DIFF Stat Comprehensive Metabolic Panel Stat Covid-19 + FLU A/B + RSV - PCR Stat Lactate (Lactic Acid) Stat NT-proBNP (BNP-Adult 18+) Stat Prothrombin Time INR Stat Troponin I Stat Albuterol (Albuterol 2.5 Mg/3 Ml Neb (Adult)) 2.5 mg INH [id number] PRN PRN Reason: Shortness Of Breath Last Admin: 07/28/24 20:42 Dose: 2.5 mg Documented By: DKB Discontinued Medications Albuterol/Ipratropium (Albuterol/Ipratropium 3 Ml Ampul) 3 ml INH NOW ONE Stop: 07/28/24 15:43 Last Admin: 07/28/24 15:48 Dose: 3 ml Documented By: SAT Albuterol/Ipratropium (Albuterol/Ipratropium 3 Ml Ampul) 3 ml INH NOW ONE Stop: 07/28/24 20:14 Last Admin: 07/28/24 22:46 Dose: 3 ml Documented By: CHICO Furosemide (Furosemide 40 Mg/4 Ml Vial) 40 mg IV NOW ONE Stop: 07/28/24 20:14 Last Admin: 07/28/24 20:32 Dose: 40 mg Documented By: CHICO Magnesium Sulfate (Magnesium Sulfate) 2 gm in 50 mls @ 150 mls/hr IV NOW ONE Stop: 07/28/24 20:32 Last Infusion: 07/28/24 20:56 Dose: Infused Documented By: CHICO Co-signed By: MIGUELITO Admin: 07/28/24 20:35 Dose: 150 mls/hr Documented By: CHIOC Co-signed By: CHRISTOPHER Methylprednisolone (Methylprednisolone 125 Mg/2 Ml Vial) 125 mg IV NOW ONE Stop: 07/28/24 20:14 Last Admin: 07/28/24 20:30 Dose: 125 mg Documented By: CHICO Oxycodone/Acetaminophen (Oxycodone/Acetaminophen 5/325 Tablet) 2 tab PO NOW ONE Stop: 07/28/24 20:14 Last Admin: 07/28/24 20:30 Dose: 2 tab Documented By: CHICO Vital Signs Vital signs: Vital Signs - 8 hr 07/28/24 16:30 07/28/24 17:00 07/28/24 17:30 Pulse Rate 57 L 57 L 58 L Respiratory Rate 16 13 23 Blood Pressure 175/81 H 183/83 H 205/91 H Pulse Oximetry 94 94 Oxygen Delivery Method Room Air Room Air Room Air 07/28/24 18:00 07/28/24 18:28 07/28/24 18:29 Pulse Rate 60 61 Respiratory Rate 17 Blood Pressure 188/84 H 183/86 H Pulse Oximetry 94 90 L Oxygen Delivery Method Room Air 07/28/24 18:29 07/28/24 18:30 07/28/24 18:31 Pulse Rate 61 61 61 Respiratory Rate 17 17 22 Blood Pressure Pulse Oximetry 95 94 95 Oxygen Delivery Method 07/28/24 18:31 07/28/24 19:00 07/28/24 19:01 Pulse Rate 62 Respiratory Rate 24 Blood Pressure 167/77 H 190/86 H Pulse Oximetry 94 Oxygen Delivery Method 07/28/24 19:01 Pulse Rate 62 Respiratory Rate 25 H Blood Pressure Pulse Oximetry 94 Oxygen Delivery Method Medical Decision Making Lab Data 07/28/24 15:58 07/28/24 15:58 Labs: Lab Results 07/28/24 Range/Units 15:58 WBC 3.8 L (4.5-11.0) X10^3/uL RBC 4.61 (4.5-5.9) X10^6/uL Hgb 12.2 L (13.5-17.5) g/dL Hct 37.6 L (41-53) % MCV 81.6 (80-100) fL MCH 26.6 (26-34) PG MCHC 32.5 (30-36) % RDW 16.5 H (11.6-14.8) % Plt Count 237 (150-400) X10^3/uL Neut % (Auto) 68.5 (50-75) % Lymph % (Auto) 12.1 L (25-40) % [place] % (Auto) 17.3 H (3-14) % Eos % (Auto) 1.3 L (2-4) % Baso % (Auto) 0.8 (0-2) % Neut # (Auto) 2600 (7051-3040) /uL Lymph # (Auto) 500 L (0896-4444) /uL [place] # (Auto) 700 (0-900) /uL Eos # (Auto) 0 (0-450) /uL Baso # (Auto) 0 (0-100) /uL PT 11.9 (9.4-12.5) SECONDS INR 1.1 (0.9-1.3) Sodium 136 L (137-145) mmol/L Potassium 3.8 (3.4-5.1) mmol/L Chloride 98 (98-107) mmol/L Carbon Dioxide 30 (22-32) mmol/L BUN 22 H (9-20) mg/dL Creatinine 1.08 (0.66-1.25) mg/dL Estimated GFR > 60 (>60) mL/min BUN/Creatinine Ratio 20.4 (6-22) Glucose 93 (80-110) mg/dL Lactate 0.9 (0.7-2.1) mmol/L Calcium 8.9 (8.4-10.2) mg/dL Total Bilirubin 0.4 (0.2-1.3) mg/dL AST 42 (17-59) IU/L ALT 26 (<50) IU/L Alkaline Phosphatase 114 (38-126) U/L Troponin I < 0.012 (0.01-0.034) ng/mL NT-Pro-B Natriuret Pep 1360 H (<125) pg/mL Total Protein 8.1 (6.3-8.2) g/dL Albumin 4.4 (3.5-5.0) g/dL Globulin 3.7 (1.7-4.1) g/dL Albumin/Globulin Ratio 1.2 (1.0-2.8) SARS-CoV-2 (PCR) Negative (Negative) Influenza A (RT-PCR) Flu a negative (NEGATIVE) Influenza B (RT-PCR) Flu b positive H (NEGATIVE) RSV (PCR) Negative (Negative) MDM Narrative Medical decision making narrative: CC: Body aches, increasing wheezing Complicating co-morbidities: COPD/asthma, chronic pain, coronary artery disease Data collected from: patient Social determinants of health that may influence the patients condition: Patient is very adamant that he does not want to be admitted to the hospital today Medical records reviewed: Prior ER notes and no orthopedic surgery notes are reviewed Differential considered: Influenza, other viral syndrome, COPD exacerbation, congestive heart failure, pulmonary embolism, acute coronary syndrome Exam documented above, pertinent findings include: Patient appears chronically ill, audible wheeze, overall poor air movement without retractions. Abdomen is soft, remainder exam is otherwise benign Lab Test results independently reviewed as above. Pertinent findings: CBC shows slightly low white count at 3.8, chronic anemia seems significantly improved from a year ago Chemistries are reassuring with normal renal function Troponin is undetectable BNP is minimally elevated at 1360 Independently reviewed EKG: Sinus rhythm at a rate of 63. No acute ischemic changes Imaging studies independently reviewed: Chest x-ray shows overall poor inspiration, peribronchial cuffing no pulmonary infiltrates and no suggestion of significant heart failure Treatments: Oral Percocet x2, IV Lasix, multiple DuoNeb treatments, parenteral Solu-Medrol, parenteral magnesium Re-evaluations: Patient has had a significant urine output, he was no longer audibly wheezing, oxygen saturations even while sleeping or now in the low 90s and upper to mid 90s while awake. Discussion: 69-year-old gentleman with influenza B has caused an acute asthma/COPD exacerbation with minor component of acute congestive heart failure. There was no evidence of bacterial infection, acute coronary syndrome, acute renal failure or alternative explanation that would require further workup. Patient is not interested in hospitalization today and has responded nicely to treatments given in the emergency department. Regarding his influenza, he is to for into the course of his disease for Tamiflu to be effective With his COPD exacerbation will give him a prednisone taper, recommend his albuterol DuoNeb every 4-6 hours as needed. He states he did not need any additional nebulizer solution Regarding the slightly elevated BNP. It appears he is on hydrochlorothiazide. We will give him 5 days of 20 mg of Lasix to help with diuresis Explain the need for follow up with his primary care physician and we discussed reasons to return to the emergency department. At this point he is safe for discharge home Discharge Plan Departure Patient Disposition: Home Clinical Impression: Influenza, Acute exacerbation of chronic obstructive pulmonary disease Acute CHF (congestive heart failure) Qualifiers: Heart failure type: unspecified Qualified Code(s): I50.9 - Heart failure, unspecified Instructions: DI for Influenza -- Adult Activity Restrictions/Additional Instructions: Thank you for coming in today You have influenza B. This is what is exacerbating your COPD, making it harder for you to breathe, given fevers and making you feel generally miserable. Unfortunately treatment for this is supportive, meaning your body we will need to get rid of the virus which usually takes 7-10 days. Please make sure you are trying to stay hydrated, you can use Tylenol as needed for fevers or body aches Because of the influenza you are having a COPD exacerbation. I have given you a prescription for prednisone 20 mg to take for 7 days. Prescription was sent to [email or web address] in [place]. You were given a dose of steroid in the emergency department as well. Please use your nebulizer treatment every 4-6 hours as needed for wheezing. If you feel that you are getting worse you do need to return to the emergency department Additionally, your retaining a bit of fluid secondary to heart failure. I have given you a prescription for 5 tablets of Lasix to take every morning for the next 5 days. You do need to follow up with your primary care physician within the next 3-4 days with all of these medication changes to make sure that you are doing well. There is a potential that you will get worsen you will need to come back. If you are feeling more short of breath, the fevers or worse you develop any symptoms we are happy to help in the ER Prescriptions: New prednisone 20 mg tablet 20 mg PO DAILY Qty: 7 0RF furosemide 20 mg tablet 20 mg PO DAILY Qty: 5 0RF No Action carvedilol 25 mg tablet 25 mg PO BID Qty: 60 0RF Rx Instructions: must administer with a meal/food fluticasone propionate 44 mcg/actuation HFA aerosol inhaler 44 mcg inhalation BID Arnuity Ellipta 100 mcg/actuation blister with device 1 inh inhalation DAILY citalopram 10 mg Tablet 20 mg PO DAILY Qty: 30 0RF lidocaine [Lidoderm] 5 % adhesive patch,medicated 1 patch topical DAILY Qty: 15 0RF Rx Instructions: leave on most painful area for up to 12 hrs methadone 10 mg Tablet 175 mg PO DAILY Patient Comments: Confirmed with Kamilla at [facility] 09/05/23 @ 10:00am clopidogrel 75 mg tablet 75 mg PO DAILY acetaminophen [Tylenol Extra Strength] 500 mg Tablet 1,000 mg PO TID pantoprazole 40 mg tablet,delayed release (DR/EC) 40 mg PO DAILY losartan 25 mg tablet 25 mg PO DAILY hydrochlorothiazide 12.5 mg tablet 12.5 mg PO DAILY aspirin 81 mg Tablet,Delayed Release (Dr/Ec) 81 mg PO BID Qty: 90 0RF ondansetron 4 mg Tablet,Disintegrating 4 mg PO Q6HR PRN (Reason: nausea and vomiting) Qty: 30 0RF polyethylene glycol 3350 17 gram Powder In Packet 17 g PO DAILY PRN (Reason: Constipation) Qty: 100 0RF oxycodone 5 mg tablet 5 mg PO Q4-6H PRN (Reason: pain (scale score 4-6)) Qty: 10 0RF Referrals: Pat Pisano ARNP [Primary Care Provider] - Stand Alone Forms: Patient Portal/API/Survey
[2024-07-28] MEDS: methylPREDNISolone 125 MG/2 ML VIAL IV (20:30)
[2024-07-28] MEDS: OXYCODONE/ACETAMINOPHEN 5/325 TABLET 2 TAB PO (20:30)
[2024-07-28] MEDS: FUROSEMIDE 40 MG/4 ML VIAL IV (20:32)
[2024-07-28] MEDS: MAGNESIUM SULFATE 2 GM/50 ML PIGGYBACK IV (20:35)
[2024-07-28] MEDS: ALBUTEROL 2.5 MG/3 ML NEB (ADULT) INH (20:42)
== END 2024-07-28 23:54 | disposition home or self-care (01) ==
PROVIDERS: Emergency Medicine; Emergency Provider Emergency Medicine; Family Provider Family Medicine; PCP Nurse Practitioner Family
DX: J10.1 Influenza due to other identified influenza virus with other respiratory manifestations (principal); J44.1 Chronic obstructive pulmonary disease with (acute) exacerbation; I50.9 Heart failure, unspecified
CPT/HCPCS: 0241U; 36415; 71045; 80053; 83605; 83880; 84484; 85025; 85610; 93005; 93010; 96365; 96375; 99285; J1940; J2919; J3475; J7613

== ENCOUNTER 2024-08-02 16:27 | Emergency (ER) | payer MEDICARE, MEDICAID, SELFPAY ==
[2023-09-04 08:50] VITALS: PULSE 54; RESP 18; O2SAT 95
[2024-03-01 14:43] VITALS: BMI 35.9
[2024-08-02] VITALS (16 sets, daily range): BP systolic 94–217; BP diastolic 53–96; PULSE 54–73; RESP 16–33; TEMP 36.9; O2SAT 90–97; BMI 36.8
--- NOTE | 2024-08-02 16:36 | EKG_ITS ---
[facility] [address] [place] [address] Test Date: 2024-08-02 Pat Name: Octaviano Jj Department: [facility] Room: Gender: Male [place]: : 1955 Requested By: Order Number: [id number] Reading MD: Teofilo Whittington Measurements Intervals [place] Rate: 70 P: 4 NM: 158 QRS: 36 QRSD: 78 T: 45 QT: 610 QTc: 658 Interpretive Statements Critical Test Result: Long QTc Normal sinus rhythm Nonspecific ST and T wave abnormality Electronically Signed On 08-03-2024 19:10:29 PDT by Teofilo Whittington
--- NOTE | 2024-08-02 16:36 | DI.RAD.S_ITS ---
PROCEDURE: XR CHEST 1V INDICATIONS: Shortness of breath TECHNIQUE: One view of the chest was acquired. COMPARISON: [facility], CR, XR CHEST 1V, 07/28/2024, 15:37. FINDINGS: Surgical changes and devices: None. Lungs and pleura: Mild pulmonary vascular congestion is seen. No pleural effusions or pneumothorax. Mediastinum: Mediastinal contours appear normal. Heart size is enlarged. Bones and chest wall: No suspicious bony lesions. Overlying soft tissues appear unremarkable. IMPRESSION: Cardiomegaly and mild congestion. No definite focal infiltrate. No pleural effusion or pneumothorax. Dictated by: Jaime Dong M.D. on 08/02/2024 at 16:56 Approved by: Jaime Dong M.D. on 08/02/2024 at 16:56
[2024-08-02] MEDS: ALBUTEROL/IPRATROPIUM 3 ML AMPUL INH ×2 (17:15→18:22)
[2024-08-02 17:28] LABS: Prothrombin Time 11.3 SECONDS (9.4-12.5)
[2024-08-02 17:31] LABS: Alanine Aminotransferase 33 IU/L (<50); Albumin 4.6 g/dL (3.5-5.0); Albumin Globulin Ratio 1.3 (1.0-2.8); Alkaline Phosphatase 113 U/L (38-126); Aspartate Aminotransferase 47 IU/L (17-59); BUN Creatinine Ratio 21.7 (6-22); Bilirubin Total 0.5 mg/dL (0.2-1.3); Blood Urea Nitrogen 35 mg/dL (9-20); Carbon Dioxide 34 mmol/L (22-32); Chloride 94 mmol/L (98-107); Estimated Glomerular Filt Rate 46 mL/min (>60); Globulin 3.6 g/dL (1.7-4.1); Glucose 128 mg/dL (80-110); HEMOLYSIS < 15 (0-50); Potassium 3.4 mmol/L (3.4-5.1); Sodium 137 mmol/L (137-145); Total Protein 8.2 g/dL (6.3-8.2)
[2024-08-02 17:32] LABS: Add Manual Diff / Slide Review NO; Basophils Absolute Auto 100 /uL (0-100); Basophils Percent Auto 1.1 % (0-2); Eosinophils Absolute Auto 100 /uL (0-450); Eosinophils Percent Auto 1.5 % (2-4); Hematocrit 37.9 % (41-53); Hemoglobin 12.5 g/dL (13.5-17.5); Lactate (Lactic Acid) 1.4 mmol/L (0.7-2.1); Lymphocytes Absolute Auto 1000 /uL (1100-4500); Lymphocytes Percent Auto 20.5 % (25-40); Mean Corpuscular HGB Conc 32.9 % (30-36); Mean Corpuscular Hemoglobin 26.6 PG (26-34); Mean Corpuscular Volume 80.9 fL (80-100); Monocytes Absolute Auto 400 /uL (0-900); Monocytes Percent Auto 8.8 % (3-14); Neutrophils Absolute Auto 3400 /uL (1500-7000); Neutrophils Percent Auto 68.1 % (50-75); Platelet Count 241 X10^3/uL (150-400); Red Blood Cell Count 4.69 X10^6/uL (4.5-5.9); Red Cell Distribution Width 16.4 % (11.6-14.8)
[2024-08-02 17:43] LABS: NT-proBNP (BNP-Adult 18+) 403 pg/mL (<125); Troponin I < 0.012 ng/mL (0.01-0.034)
--- NOTE | 2024-08-02 18:38 | RT ---
pt cristina neb tx well with acapella , on room air with mild sob noted
--- NOTE | 2024-08-02 19:30 | PC.NURSE ---
Pt resting quielty with eyes closed, resps even and not labored. No distress noted at this time. Pt remains connected to cardiac, resp, blood pressure, and pulse ox monitors with alarms on and audible. Call light within reach.
--- NOTE | 2024-08-02 20:21 | ED.SOB ---
HPI - SOB/Dyspnea General Chief Complaint: Shortness of Breath/Dyspnea Stated Complaint: has the flu? Time Seen by Provider: 08/02/24 20:20 Source: patient, RN notes reviewed and old records reviewed Mode of arrival: Ambulatory Limitations: no limitations History of Present Illness HPI Narrative: 69-year-old male 69-year-old male with a history of congestive heart failure, hypertension, reflux on methadone for chronic pain patient does use inhalers regularly. States he has been sick for the last several days some mild fevers. States he was had increasing shortness of breath, describes little bit of substernal chest discomfort without radiation. States no syncope or lightheadedness. He has had some nausea occasional dry heaves. No abdominal back or flank pain. No diarrhea or constipation. He has not had any nasal congestion. Has had a cough. Patient states no new swelling in his legs. He was right leg he states he twisted it pretty badly he was black and blue but not broken. He has been ambulating on it. Patient states that he was sprained it. Patient does use an inhaler he was got nebulizers but does not have his hand-held inhaler anymore. He denies any drug allergies. Denies any prior surgeries or cardiac stents. States that he was on Lasix for 5 days starting July 28. Related Data Home Medications Medication Instructions Recorded Confirmed methadone 10 mg tablet 175 mg PO DAILY 07/12/23 03/01/24 fluticasone propionate 44 44 mcg inhalation BID 09/02/23 02/22/24 mcg/actuation HFA aerosol inhaler fluticasone furoate 100 1 inh inhalation DAILY 09/05/23 02/22/24 mcg/actuation blister powder for inhalation (Arnuity Ellipta) acetaminophen 500 mg tablet 1,000 mg PO TID 02/22/24 03/01/24 (Tylenol Extra Strength) clopidogrel 75 mg tablet 75 mg PO DAILY 02/22/24 03/01/24 hydrochlorothiazide 12.5 mg tablet 12.5 mg PO DAILY 02/22/24 03/01/24 losartan 25 mg tablet 25 mg PO DAILY 02/22/24 03/01/24 pantoprazole 40 mg tablet,delayed 40 mg PO DAILY 02/22/24 03/01/24 release Previous Rx's Medication Instructions Recorded carvedilol 25 mg tablet 25 mg PO BID #60 tabs 01/11/22 citalopram 10 mg tablet 20 mg (2 x 10 mg) PO DAILY #30 tabs 09/06/23 aspirin 81 mg tablet,delayed 81 mg PO BID #90 tabs 03/03/24 release ondansetron 4 mg disintegrating 4 mg PO Q6HR PRN nausea and 03/03/24 tablet vomiting #30 tabs oxycodone 5 mg tablet 5 mg PO Q4-6H PRN pain (scale 03/03/24 score 4-6) #10 tabs polyethylene glycol 3350 17 gram 17 g PO DAILY PRN Constipation 03/03/24 oral powder packet #100 ea lidocaine 5 % topical patch 1 patch topical DAILY #15 ea 05/27/24 (Lidoderm) furosemide 20 mg tablet 20 mg PO DAILY #5 tabs 07/28/24 prednisone 20 mg tablet 20 mg PO DAILY #7 tabs 07/28/24 prednisone 10 mg tablets in a dose See Rx Instructions PO .COMPLEX 08/02/24 pack #21 ea Allergies Allergy/AdvReac Type Severity Reaction Status Date / Time meloxicam [MELOXICAM] Allergy Severe ANAPHYLAXSI Verified 05/27/24 15:45 S NSAIDS (Non-Steroidal Allergy Severe Swelling Verified 05/27/24 15:45 Anti-Inflamma of Lip/Tongue/Throat Penicillins [PENICILLINS] Allergy Severe Swelling Verified 05/27/24 15:45 of Lip/Tongue/Throat chocolate flavor Allergy Intermediate Swelling Verified 05/27/24 15:45 of Lip/Tongue/Throat peanut Allergy Intermediate Swelling Verified 05/27/24 15:45 of Lip/Tongue/Throat strawberry Allergy Intermediate Swelling Verified 05/27/24 15:45 of Lip/Tongue/Throat celecoxib [From CELEBREX] Allergy Unknown Anaphylaxis Verified 05/27/24 15:45 avocado AdvReac Intermediate Swelling Verified 05/27/24 15:45 of Lip/Tongue/Throat peas AdvReac Intermediate Swelling Verified 05/27/24 15:45 of Lip/Tongue/Throat sulfite AdvReac Intermediate Migraine Verified 05/27/24 15:45 lisinopril [LISINOPRIL] AdvReac Unknown Cough Verified 05/27/24 15:45 Review of Systems Review of Systems ROS Unobtainable: All systems reviewed & are unremarkable except as noted in HPI and below Patient History Medical History Overdose of fentanyl (09/02/23) Chronic neck and back pain Systolic congestive 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, NYHA class 1 Left hemiparesis Stroke Right rib fracture Coronary artery disease Hypertension Surgical History History of cholecystectomy Hx of fusion of cervical spine History of surgery on wrist History of shoulder surgery History of laparotomy Family History Father Parkinsons Mother Cancer Brother Cancer Sister No significant medical problems Social History household members: spouse Smoking Status: Former smoker alcohol intake: former substance use type: does not use Smoking Status: Former smoker tobacco type: cigarettes alcohol intake frequency: holidays/special occasions only Exam Narrative Exam Narrative: GENERAL: Alert and oriented x three, male in mild distress HEENT: Head normocephalic, atraumatic, EOMI, pupils reactive, face symmetric, moist mucous membranes NECK: Supple, full range of motion CARDIOVASCULAR: Regular rate and rhythm without murmurs, rubs or gallops. RESPIRATORY: Breath sounds equal bilaterally, no wheezes rales or rhonchi. Mild tachypnea no accessory muscle use. Wet cough on exam. ABDOMEN: Soft, nontender. Normoactive bowel sounds all 4 quadrants. No guarding or rebound, rigidity, no mass : No CVA tenderness EXTREMITIES: Normal range of motion, no clubbing or edema. Neurovascularly intact NEUROLOGICAL: Cranial nerves II through XII grossly intact. Moving all extremities SKIN: Warm, dry, no petechiae, no rashes or lesions. Initial Vital Signs Initial Vital Signs: Vital Signs Temperature 98.5 F 08/02/24 16:32 Pulse Rate 73 08/02/24 16:32 Respiratory Rate 28 H 08/02/24 16:32 Blood Pressure 217/96 H 08/02/24 16:32 Pulse Oximetry 93 08/02/24 16:32 Oxygen Delivery Method Room Air 08/02/24 16:32 Course Orders Ordered: ED Orders 08/02/24 20:34 Trop I [Troponin I] Stat Discontinued Medications Albuterol (Albuterol Hfa Prepack) 1 box MISC DIRECTED ONE Stop: 08/02/24 21:17 Last Admin: 08/02/24 21:27 Dose: 1 box Documented By: SAÚL Albuterol/Ipratropium (Albuterol/Ipratropium 3 Ml Ampul) 3 ml INH NOW ONE Stop: 08/02/24 17:12 Last Admin: 08/02/24 17:15 Dose: 3 ml Documented By: SAT Albuterol/Ipratropium (Albuterol/Ipratropium 3 Ml Ampul) 3 ml INH NOW ONE Stop: 08/02/24 18:20 Last Admin: 08/02/24 18:22 Dose: 3 ml Documented By: INDIA Prednisone (Prednisone 20 Mg Tablet) 60 mg PO NOW ONE Stop: 08/02/24 21:17 Last Admin: 08/02/24 21:27 Dose: 60 mg Documented By: LS Vital Signs Vital signs: Vital Signs - 8 hr 08/02/24 20:00 08/02/24 20:00 08/02/24 20:48 Pulse Rate 57 L 70 Respiratory Rate 22 Blood Pressure 145/67 H Pulse Oximetry 95 94 Oxygen Delivery Method Room Air Room Air MDM - SOB/Dyspnea Lab Data 08/02/24 17:05 08/02/24 17:05 Labs: Lab Results 08/02/24 08/02/24 Range/Units 17:05 20:34 WBC 5.0 (4.5-11.0) X10^3/uL RBC 4.69 (4.5-5.9) X10^6/uL Hgb 12.5 L (13.5-17.5) g/dL Hct 37.9 L (41-53) % MCV 80.9 (80-100) fL MCH 26.6 (26-34) PG MCHC 32.9 (30-36) % RDW 16.4 H (11.6-14.8) % Plt Count 241 (150-400) X10^3/uL Neut % (Auto) 68.1 (50-75) % Lymph % (Auto) 20.5 L (25-40) % Petroleum % (Auto) 8.8 (3-14) % Eos % (Auto) 1.5 L (2-4) % Baso % (Auto) 1.1 (0-2) % Neut # (Auto) 3400 (3930-7739) /uL Lymph # (Auto) 1000 L (5070-7483) /uL Petroleum # (Auto) 400 (0-900) /uL Eos # (Auto) 100 (0-450) /uL Baso # (Auto) 100 (0-100) /uL PT 11.3 (9.4-12.5) SECONDS INR 1.0 (0.9-1.3) Sodium 137 (137-145) mmol/L Potassium 3.4 (3.4-5.1) mmol/L Chloride 94 L (98-107) mmol/L Carbon Dioxide 34 H (22-32) mmol/L BUN 35 H (9-20) mg/dL Creatinine 1.61 H (0.66-1.25) mg/dL Estimated GFR 46 L (>60) mL/min BUN/Creatinine Ratio 21.7 (6-22) Glucose 128 H (80-110) mg/dL Lactate 1.4 (0.7-2.1) mmol/L Calcium 9.0 (8.4-10.2) mg/dL Total Bilirubin 0.5 (0.2-1.3) mg/dL AST 47 (17-59) IU/L ALT 33 (<50) IU/L Alkaline Phosphatase 113 (38-126) U/L Troponin I < 0.012 < 0.012 (0.01-0.034) ng/mL NT-Pro-B Natriuret Pep 403 H (<125) pg/mL Total Protein 8.2 (6.3-8.2) g/dL Albumin 4.6 (3.5-5.0) g/dL Globulin 3.6 (1.7-4.1) g/dL Albumin/Globulin Ratio 1.3 (1.0-2.8) ECG Data Attestation: I personally reviewed and interpreted this ECG as follows: Interpretation: Sinus rhythm rate of 70 MI 158 QRS is 78 QTC of [address] elevation or depression./patient has not old EKG from 11/29/2023 which showed a QTC of 465. EKG 2. Shows sinus rhythm rate of 68 MI 1 84, QRS of 80 QTC of 525. MDM Narrative Medical decision making narrative: Labs show white count of 5 hemoglobin of 12.5 which appears consistent with priors platelets of 241. Low lymphocytes. INR is 1. Chemistry shows creatinine 1.61 this is up when he was 1.08 in June., BUN 35 CO2 is 34 with a chloride 94 glucose of 128 otherwise normal sodium and potassium, troponins less than 0.012 with a BNP of 403 has improved from 1360 the 28 of July. Repeat troponin is negative. Chest x-ray shows cardiomegaly and mild congestion no definite focal infiltrates no pleural effusion or pneumothorax. COVID/influenza/RSV is positive for influenza B. Patient had nebulizer treatment he states little bit helpful but defers any additional. Ambulatory pulse ox was mid-90s with no significant increased work of breathing. Patient is felt appropriate for discharge home discussed return precautions. We will give dose of oral prednisone as patient often receives this and albuterol prepack as he was out of his inhaler but still has not nebulized albuterol at home. Patient feels comfortable turned home all questions answered. Discharge Plan Departure Patient Disposition: Home Clinical Impression: Influenza B, QUINTON (acute kidney injury) Instructions: DI for Influenza -- Adult Activity Restrictions/Additional Instructions: You have tested positive for influenza B today. This is a viral illness that typically last 7-10 days. Your workup did show your kidney function is slightly decreased this is probably from your recent diuretics would recommend you follow up for recheck and a have your kidney function rechecked. Take steroids until completed Use your nebulizer and or inhaler every 4-6 hours as needed. Prescription sent to [facility] Please return for worsening symptoms increased chest pain or shortness of breath, any lightheadedness or passing out, new swelling in your extremities or other new or concerning changes. Prescriptions: New prednisone 10 mg tablets,dose pack See Rx Instructions .ROUTE .COMPLEX Qty: 21 0RF Rx Instructions: 6 tabs p.o. x1 day, then 5 tabs p.o. x1 day, then 4 tablets p.o. x1 day, then 3 tabs p.o. x1 day, then 2 tabs p.o. x1 day, then 1 tab p.o. x1 day No Action carvedilol 25 mg tablet 25 mg PO BID Qty: 60 0RF Rx Instructions: must administer with a meal/food fluticasone propionate 44 mcg/actuation HFA aerosol inhaler 44 mcg inhalation BID Arnuity Ellipta 100 mcg/actuation blister with device 1 inh inhalation DAILY citalopram 10 mg Tablet 20 mg PO DAILY Qty: 30 0RF lidocaine [Lidoderm] 5 % adhesive patch,medicated 1 patch topical DAILY Qty: 15 0RF Rx Instructions: leave on most painful area for up to 12 hrs prednisone 20 mg tablet 20 mg PO DAILY Qty: 7 0RF furosemide 20 mg tablet 20 mg PO DAILY Qty: 5 0RF methadone 10 mg Tablet 175 mg PO DAILY Patient Comments: Confirmed with Kamilla at [facility] 09/05/23 @ 10:00am clopidogrel 75 mg tablet 75 mg PO DAILY acetaminophen [Tylenol Extra Strength] 500 mg Tablet 1,000 mg PO TID pantoprazole 40 mg tablet,delayed release (DR/EC) 40 mg PO DAILY losartan 25 mg tablet 25 mg PO DAILY hydrochlorothiazide 12.5 mg tablet 12.5 mg PO DAILY aspirin 81 mg Tablet,Delayed Release (Dr/Ec) 81 mg PO BID Qty: 90 0RF ondansetron 4 mg Tablet,Disintegrating 4 mg PO Q6HR PRN (Reason: nausea and vomiting) Qty: 30 0RF polyethylene glycol 3350 17 gram Powder In Packet 17 g PO DAILY PRN (Reason: Constipation) Qty: 100 0RF oxycodone 5 mg tablet 5 mg PO Q4-6H PRN (Reason: pain (scale score 4-6)) Qty: 10 0RF Referrals: Jordon Flanagan DO [Primary Care Provider] - Stand Alone Forms: Patient Portal/API/Survey
[2024-08-02 21:09] LABS: Troponin I < 0.012 ng/mL (0.01-0.034)
[2024-08-02] MEDS: ALBUTEROL HFA PREPACK 1 BOX MISC (21:27)
[2024-08-02] MEDS: predniSONE 20 MG TABLET 60 MG PO (21:27)
== END 2024-08-02 21:34 | disposition home or self-care (01) ==
PROVIDERS: Emergency Medicine; Emergency Provider Emergency Medicine; PCP Family Medicine
DX: J10.1 Influenza due to other identified influenza virus with other respiratory manifestations (principal); N17.9 Acute kidney failure, unspecified; R07.9 Chest pain, unspecified; R05.9 Cough, unspecified; I50.9 Heart failure, unspecified
CPT/HCPCS: 36415; 71045; 80053; 83605; 83880; 84484; 85025; 85610; 93005; 94640; 99284

== ENCOUNTER 2024-10-22 16:30 | Emergency (ER) | payer MEDICARE, MEDICAID, SELFPAY ==
[2023-09-04 08:50] VITALS: PULSE 54; RESP 18; O2SAT 95
[2024-03-01 14:43] VITALS: BMI 35.9
[2024-10-22 17:01] VITALS: BP 166/71; PULSE 64; RESP 18; TEMP 36.2; O2SAT 98; BMI 37.5
--- NOTE | 2024-10-22 17:08 | DI.RAD.S_ITS ---
PROCEDURE: XR ANKLE RT MIN 3V INDICATIONS: injury TECHNIQUE: 3 views of the ankle were acquired. COMPARISON: [facility], CR, XR ANKLE 3+ VIEWS RIGHT, 09/24/2024, 14:09. [facility], CR, XR ANKLE RT MIN 3V, 06/26/2024, 19:49. FINDINGS AND IMPRESSION: Moderate midfoot and tibiotalar arthrosis. No acute displaced fracture or dislocation. Calcaneal enthesopathy. Nonacute appearing slight deformity of the medial malleolus. Diffuse soft tissue swelling raising possibility of ligamentous injury. If there is high concern for further derangement, consider MRI evaluation. Dictated by: Carlos Eduardo Cervantes M.D. on 10/22/2024 at 17:36 Approved by: Carlos Eduardo Cervantes M.D. on 10/22/2024 at 17:37
[2024-10-23 03:29] VITALS: PULSE 55; RESP 12; O2SAT 99
[2024-10-23 03:30] VITALS: BP 181/79; PULSE 55; RESP 12; O2SAT 98
--- NOTE | 2024-10-23 03:55 | ED.LOWEXIN ---
HPI - Extremity Injury (Lower) General Chief Complaint: Extremity Injury, Lower Stated Complaint: injury right ft possible infected Time Seen by Provider: 10/22/24 16:33 Mode of arrival: Ambulatory History of Present Illness HPI Narrative: 69-year-old male complains of right heel/foot infection treated with oral course of antibiotics that he can not name, completed the course of antibiotic, seemed like it was getting better, then had twisting ankle injury yesterday, with increasing right ankle/foot pain. No fevers or chills. He has a walking boot that he would not bring. He is not using any crutches. No other injuries from the twisting injury recalled, denies knee pain, denies upper foreleg pain or thigh pain. No hip pain. Related Data Home Medications ?Medication ?Instructions ?Recorded ?Confirmed methadone 10 mg tablet 175 mg PO DAILY 07/12/23 03/01/24 fluticasone propionate 44 44 mcg inhalation BID 09/02/23 02/22/24 mcg/actuation HFA aerosol inhaler fluticasone furoate 100 1 inh inhalation DAILY 09/05/23 02/22/24 mcg/actuation blister powder for inhalation (Arnuity Ellipta) acetaminophen 500 mg tablet 1,000 mg PO TID 02/22/24 03/01/24 (Tylenol Extra Strength) clopidogrel 75 mg tablet 75 mg PO DAILY 02/22/24 03/01/24 hydrochlorothiazide 12.5 mg tablet 12.5 mg PO DAILY 02/22/24 03/01/24 losartan 25 mg tablet 25 mg PO DAILY 02/22/24 03/01/24 pantoprazole 40 mg tablet,delayed 40 mg PO DAILY 02/22/24 03/01/24 release Previous Rx's ?Medication ?Instructions ?Recorded carvedilol 25 mg tablet 25 mg PO BID #60 tabs 01/11/22 citalopram 10 mg tablet 20 mg (2 x 10 mg) PO DAILY #30 tabs 09/06/23 aspirin 81 mg tablet,delayed 81 mg PO BID #90 tabs 03/03/24 release ondansetron 4 mg disintegrating 4 mg PO Q6HR PRN nausea and 03/03/24 tablet vomiting #30 tabs oxycodone 5 mg tablet 5 mg PO Q4-6H PRN pain (scale 03/03/24 score 4-6) #10 tabs polyethylene glycol 3350 17 gram 17 g PO DAILY PRN Constipation 03/03/24 oral powder packet #100 ea lidocaine 5 % topical patch 1 patch topical DAILY #15 ea 05/27/24 (Lidoderm) furosemide 20 mg tablet 20 mg PO DAILY #5 tabs 07/28/24 prednisone 20 mg tablet 20 mg PO DAILY #7 tabs 07/28/24 prednisone 10 mg tablets in a dose See Rx Instructions PO .COMPLEX 08/02/24 pack #21 ea Allergies Allergy/AdvReac Type Severity Reaction Status Date / Time meloxicam (MELOXICAM) Allergy Severe ANAPHYLAXSI Verified 10/23/24 03:27 S NSAIDS (Non-Steroidal Allergy Severe Swelling Verified 10/23/24 03:27 Anti-Inflamma of Lip/Tongue/Throat Penicillins (PENICILLINS) Allergy Severe Swelling Verified 10/23/24 03:27 of Lip/Tongue/Throat chocolate flavor Allergy Intermediate Swelling Verified 10/23/24 03:27 of Lip/Tongue/Throat peanut Allergy Intermediate Swelling Verified 10/23/24 03:27 of Lip/Tongue/Throat strawberry Allergy Intermediate Swelling Verified 10/23/24 03:27 of Lip/Tongue/Throat celecoxib (From CELEBREX) Allergy Unknown Anaphylaxis Verified 10/23/24 03:27 avocado AdvReac Intermediate Swelling Verified 10/23/24 03:27 of Lip/Tongue/Throat peas AdvReac Intermediate Swelling Verified 10/23/24 03:27 of Lip/Tongue/Throat sulfite AdvReac Intermediate Migraine Verified 10/23/24 03:27 lisinopril (LISINOPRIL) AdvReac Unknown Cough Verified 10/23/24 03:27 Patient History Medical History Overdose of fentanyl (09/02/23) Chronic neck and back pain Systolic congestive 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, NYHA class 1 Left hemiparesis Stroke Right rib fracture Coronary artery disease Hypertension Surgical History History of cholecystectomy Hx of fusion of cervical spine History of surgery on wrist History of shoulder surgery History of laparotomy Family History Father Parkinsons Mother Cancer Brother Cancer Sister No significant medical problems Social History household members: spouse Smoking Status: Never smoker alcohol intake: former substance use type: does not use Smoking Status: Never smoker tobacco type: cigarettes alcohol intake frequency: holidays/special occasions only Exam Narrative Exam Narrative: GENERAL: Well-developed patient, in mild distress. HEAD: Atraumatic. Normocephalic. EYES: Pupils equal round and reactive. Extraocular motions intact. No scleral icterus. No injection or drainage. ENT: Nose without bleeding, purulent drainage. Throat without erythema, tonsillar hypertrophy or exudate. Airway patent. NECK: Trachea midline. Non tender CARDIOVASCULAR: Regular rate and rhythm without murmurs, gallops, or rubs. RESPIRATORY: Clear to auscultation. Breath sounds equal bilaterally. No wheezes, rales, or rhonchi. GASTROINTESTINAL: Abdomen soft, non-tender, nondistended. EXTREMITIES: Some scale to right posterior foot without obvious redness. Mild tenderness medial and lateral joint line ankle. BACK: Nontender without deformity or crepitance. No flank tenderness. NEURO: AOx3. Motor functions grossly nonfocal. SKIN: No rash or erythema of visible areas Initial Vital Signs Initial Vital Signs: Vital Signs Temperature 97.2 F L 10/22/24 17:01 Pulse Rate 64 10/22/24 17:01 Respiratory Rate 18 10/22/24 17:01 Blood Pressure 166/71 H 10/22/24 17:01 Pulse Oximetry 98 10/22/24 17:01 Oxygen Delivery Method Room Air 10/22/24 17:01 Course Vital Signs Vital signs: Vital Signs - 8 hr 10/23/24 03:29 10/23/24 03:30 10/23/24 03:30 Pulse Rate 55 L 55 L Respiratory Rate 12 12 Blood Pressure 181/79 H Pulse Oximetry 99 98 Oxygen Delivery Method 10/23/24 04:00 10/23/24 04:00 Pulse Rate 55 L Respiratory Rate 14 Blood Pressure 192/86 H Pulse Oximetry 93 Oxygen Delivery Method Room Air MDM - Extremity Injury (Lower) Imaging Data Extremity x-ray #1: Radiologist's Impression: [address] [id number] XRay Report Signed Patient: Roddydelores LynOctaviano MR#: [id number] : 1955 Acct:[id number] Age/Sex: 69 / M Date of Service: 10/22/24 Loc: ED Accession Number: [id number] Procedure: XR ankle RT min 3V Ordering Provider: Awilda Romero D.O. PROCEDURE: XR ANKLE RT MIN 3V INDICATIONS: injury TECHNIQUE: 3 views of the ankle were acquired. COMPARISON: [facility], CR, XR ANKLE 3+ VIEWS RIGHT, 09/24/2024, 14:09. [facility], CR, XR ANKLE RT MIN 3V, 06/26/2024, 19:49. FINDINGS AND IMPRESSION: Moderate midfoot and tibiotalar arthrosis. No acute displaced fracture or dislocation. Calcaneal enthesopathy. Nonacute appearing slight deformity of the medial malleolus. Diffuse soft tissue swelling raising possibility of ligamentous injury. If there is high concern for further derangement, consider MRI evaluation. Dictated by: Carlos Eduardo Cervantes M.D. on 10/22/2024 at 17:36 Approved by: Carlos Eduardo Cervantes M.D. on 10/22/2024 at 17:37 MDM Narrative Medical decision making narrative: 69-year-old male with recent course of the antibiotic for right foot infection, seemed to be improving, now with new ankle twist injury to the right, some tenderness to the right ankle with some localized swelling. No redness. Some scale to skin without crepitance/tenderness medial and lateral aspect calcaneus. X-ray ankle ordered. Right ankle x-ray series, no bony fracture, soft tissue changes noted. See radiology report. Offered boot, he has a walking boot at home, we would like a new boot, dispensed. Offered crutches, declined. Advised recheck with Orthopedic surgery, given local orthopedic surgeon contact information. Return precautions discussed. Discharged home. Discharge Plan Departure Patient Disposition: Home Clinical Impression: Right ankle strain Activity Restrictions/Additional Instructions: Recent reported right foot infection, having completed course of oral antibiotic from outside facility. Symptoms seemed to be improving. Yesterday had ankle twist injury to the right side, with swelling to the right ankle. X-ray right ankle series without obvious bony fracture but some soft tissue swelling. Walking boot applied. Offered crutches, which you had declined. Consider rest elevation local ice application. Recheck with Orthopedic surgery later this week, clinic contact information provided. Take [id number] Tylenol as needed. You have chronic pain medications listed as well to take if needed. Prescriptions: No Action carvedilol 25 mg tablet 25 mg PO BID Qty: 60 0RF Rx Instructions: must administer with a meal/food fluticasone propionate 44 mcg/actuation HFA aerosol inhaler 44 mcg inhalation BID Arnuity Ellipta 100 mcg/actuation blister with device 1 inh inhalation DAILY citalopram 10 mg Tablet 20 mg PO DAILY Qty: 30 0RF lidocaine [Lidoderm] 5 % adhesive patch,medicated 1 patch topical DAILY Qty: 15 0RF Rx Instructions: leave on most painful area for up to 12 hrs prednisone 20 mg tablet 20 mg PO DAILY Qty: 7 0RF furosemide 20 mg tablet 20 mg PO DAILY Qty: 5 0RF prednisone 10 mg tablets,dose pack See Rx Instructions .ROUTE .COMPLEX Qty: 21 0RF Rx Instructions: 6 tabs p.o. x1 day, then 5 tabs p.o. x1 day, then 4 tablets p.o. x1 day, then 3 tabs p.o. x1 day, then 2 tabs p.o. x1 day, then 1 tab p.o. x1 day methadone 10 mg Tablet 175 mg PO DAILY Patient Comments: Confirmed with Kamilla at [facility] 09/05/23 @ 10:00am clopidogrel 75 mg tablet 75 mg PO DAILY acetaminophen [Tylenol Extra Strength] 500 mg Tablet 1,000 mg PO TID pantoprazole 40 mg tablet,delayed release (DR/EC) 40 mg PO DAILY losartan 25 mg tablet 25 mg PO DAILY hydrochlorothiazide 12.5 mg tablet 12.5 mg PO DAILY aspirin 81 mg Tablet,Delayed Release (Dr/Ec) 81 mg PO BID Qty: 90 0RF ondansetron 4 mg Tablet,Disintegrating 4 mg PO Q6HR PRN (Reason: nausea and vomiting) Qty: 30 0RF polyethylene glycol 3350 17 gram Powder In Packet 17 g PO DAILY PRN (Reason: Constipation) Qty: 100 0RF oxycodone 5 mg tablet 5 mg PO Q4-6H PRN (Reason: pain (scale score 4-6)) Qty: 10 0RF Referrals: [facility] [Provider Group] Jordon Flanagan DO [Primary Care Provider, Family Practice] Ozzie Roca MD [Physician, Orthopedic Surgery] Stand Alone Forms: Patient Portal/API
[2024-10-23 04:00] VITALS: BP 192/86; PULSE 55; RESP 14; O2SAT 93
== END 2024-10-23 04:51 | disposition home or self-care (01) ==
PROVIDERS: Emergency Provider Emergency Medicine; PCP Family Medicine
DX: S96.911A Strain of unspecified muscle and tendon at ankle and foot level, right foot, initial encounter (principal); X50.1XXA Overexertion from prolonged static or awkward postures, initial encounter; Y93.9 Activity, unspecified
CPT/HCPCS: 29580; 73610; 99281; 99283

== ENCOUNTER 2025-01-09 11:54 | Emergency (ER) | payer MEDICARE, MEDICAID, SELFPAY ==
[2023-09-04 08:50] VITALS: PULSE 54; RESP 18; O2SAT 95
[2024-03-01 14:43] VITALS: BMI 35.9
[2025-01-09 12:42] VITALS: BP 177/89; PULSE 77; RESP 17; TEMP 36.6; O2SAT 99; BMI 36.6
[2025-01-09 15:39] VITALS: BP 199/91; PULSE 69; RESP 18; O2SAT 100
== END 2025-01-09 16:05 | disposition left against medical advice (07) ==
PROVIDERS: Emergency Provider Emergency Medicine; PCP Family Medicine
CPT/HCPCS: 99281

== ENCOUNTER 2025-03-10 09:26 | Emergency (ER) | payer MEDICARE, MEDICAID, SELFPAY ==
[2023-09-04 08:50] VITALS: PULSE 54; RESP 18; O2SAT 95
[2024-03-01 14:43] VITALS: BMI 35.9
[2025-03-10 09:30] VITALS: BP 163/74; PULSE 65; RESP 18; TEMP 36.6; O2SAT 98; BMI 37.5
--- NOTE | 2025-03-10 09:59 | EKG_ITS ---
[facility]
--- NOTE | 2025-03-10 09:59 | DI.RAD.S_ITS ---
PROCEDURE: XR CHEST 1V
--- NOTE | 2025-03-10 10:02 | ED_ITS ---
HPI - URI/Sore Throat
--- NOTE | 2025-03-10 10:02 | ED.URI ---
HPI - URI/Sore Throat General Chief Complaint: Upper Respiratory Symptoms Stated Complaint: Chest congestion, pain in RT foot Time Seen by Provider: 03/10/25 09:54 Source: patient Mode of arrival: Ambulatory History of Present Illness HPI Narrative: 69 years old male with history of CHF, asthma, chronic back pain, hypertension, CVA on Plavix came today complaining of nasal congestion, coughing, white phlegm, chest pain with cough, subjective fever, wheezing for the last 1 week without shortness of breath, nausea vomiting, abdominal pain, diarrhea, constipation, urine problem. Related Data Home Medications ?Medication ?Instructions ?Recorded ?Confirmed methadone 10 mg tablet 175 mg PO DAILY 07/12/23 03/01/24 fluticasone propionate 44 44 mcg inhalation BID 09/02/23 02/22/24 mcg/actuation HFA aerosol inhaler fluticasone furoate 100 1 inh inhalation DAILY 09/05/23 02/22/24 mcg/actuation blister powder for inhalation (Arnuity Ellipta) acetaminophen 500 mg tablet 1,000 mg PO TID 02/22/24 03/01/24 (Tylenol Extra Strength) clopidogrel 75 mg tablet 75 mg PO DAILY 02/22/24 03/01/24 hydrochlorothiazide 12.5 mg tablet 12.5 mg PO DAILY 02/22/24 03/01/24 losartan 25 mg tablet 25 mg PO DAILY 02/22/24 03/01/24 pantoprazole 40 mg tablet,delayed 40 mg PO DAILY 02/22/24 03/01/24 release Previous Rx's ?Medication ?Instructions ?Recorded carvedilol 25 mg tablet 25 mg PO BID #60 tabs 01/11/22 citalopram 10 mg tablet 20 mg (2 x 10 mg) PO DAILY #30 tabs 09/06/23 aspirin 81 mg tablet,delayed 81 mg PO BID #90 tabs 03/03/24 release ondansetron 4 mg disintegrating 4 mg PO Q6HR PRN nausea and 03/03/24 tablet vomiting #30 tabs oxycodone 5 mg tablet 5 mg PO Q4-6H PRN pain (scale 03/03/24 score 4-6) #10 tabs polyethylene glycol 3350 17 gram 17 g PO DAILY PRN Constipation 03/03/24 oral powder packet #100 ea lidocaine 5 % topical patch 1 patch topical DAILY #15 ea 05/27/24 (Lidoderm) furosemide 20 mg tablet 20 mg PO DAILY #5 tabs 07/28/24 prednisone 20 mg tablet 20 mg PO DAILY #7 tabs 07/28/24 prednisone 10 mg tablets in a dose See Rx Instructions PO .COMPLEX 08/02/24 pack #21 ea albuterol sulfate 90 mcg/actuation 2 puff inhalation Q6H PRN 03/10/25 aerosol inhaler shortness of breath or wheezing #8.5 grams benzonatate 200 mg capsule 200 mg PO TID #15 caps 03/10/25 prednisone 20 mg tablet 40 mg (2 x 20 mg) PO DAILY #10 tabs 03/10/25 Allergies Allergy/AdvReac Type Severity Reaction Status Date / Time meloxicam (MELOXICAM) Allergy Severe ANAPHYLAXSI Verified 03/10/25 09:31 S NSAIDS (Non-Steroidal Allergy Severe Swelling Verified 03/10/25 09:31 Anti-Inflamma of Lip/Tongue/Throat Penicillins (PENICILLINS) Allergy Severe Swelling Verified 03/10/25 09:31 of Lip/Tongue/Throat chocolate flavor Allergy Intermediate Swelling Verified 03/10/25 09:31 of Lip/Tongue/Throat peanut Allergy Intermediate Swelling Verified 03/10/25 09:31 of Lip/Tongue/Throat strawberry Allergy Intermediate Swelling Verified 03/10/25 09:31 of Lip/Tongue/Throat celecoxib (From CELEBREX) Allergy Unknown Anaphylaxis Verified 03/10/25 09:31 avocado AdvReac Intermediate Swelling Verified 03/10/25 09:31 of Lip/Tongue/Throat peas AdvReac Intermediate Swelling Verified 03/10/25 09:31 of Lip/Tongue/Throat sulfite AdvReac Intermediate Migraine Verified 03/10/25 09:31 lisinopril (LISINOPRIL) AdvReac Unknown Cough Verified 03/10/25 09:31 Review of Systems Review of Systems Narrative: Positive for nasal congestion, coughing, white phlegm, chest pain with cough, subjective fever, wheezing. Negative for Shortness of breath, nausea vomiting, abdominal pain, diarrhea, constipation, urine problem. Patient History Medical History Overdose of fentanyl (09/02/23) Chronic neck and back pain Systolic congestive 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, NYHA class 1 Left hemiparesis Stroke Right rib fracture Coronary artery disease Hypertension Surgical History History of cholecystectomy Hx of fusion of cervical spine History of surgery on wrist History of shoulder surgery History of laparotomy Family History Father Parkinsons Mother Cancer Brother Cancer Sister No significant medical problems Social History household members: spouse Smoking Status: Former smoker alcohol intake: former substance use type: does not use Smoking Status: Former smoker tobacco type: cigarettes alcohol intake frequency: holidays/special occasions only Exam Narrative Exam Narrative: GENERAL: Alert awake without acute distress. HEAD: Atraumatic. Normocephalic. ENT: Nose without bleeding, purulent drainage. Throat without erythema, tonsillar hypertrophy or exudate. Airway patent. NECK: Trachea midline. Non tender CARDIOVASCULAR: Wheezing in both lung without expiratory distress. RESPIRATORY: Clear to auscultation. Breath sounds equal bilaterally. No wheezes, rales, or rhonchi. GASTROINTESTINAL: Abdomen soft, non-tender, nondistended. EXTREMITIES: No edema or joint tenderness. BACK: Nontender without deformity or crepitance. No flank tenderness. NEURO: AOx3. SKIN: No rash or erythema of visible areas Initial Vital Signs Initial Vital Signs: Vital Signs Temperature 97.8 F 03/10/25 09:30 Pulse Rate 65 03/10/25 09:30 Respiratory Rate 18 03/10/25 09:30 Blood Pressure 163/74 H 03/10/25 09:30 Pulse Oximetry 98 03/10/25 09:30 Oxygen Delivery Method Room Air 03/10/25 09:30 Course Orders Ordered: Discontinued Medications Albuterol/Ipratropium (Albuterol/Ipratropium 3 Ml Ampul) 3 ml INH NOW ONE Stop: 03/10/25 10:04 Last Admin: 03/10/25 10:27 Dose: 3 ml Documented By: NAVEEN Albuterol/Ipratropium (Albuterol/Ipratropium 3 Ml Ampul) 3 ml INH NOW ONE Stop: 03/10/25 10:05 Last Admin: 03/10/25 10:33 Dose: 3 ml Documented By: LUIS ALFREDO Prednisone (Prednisone 20 Mg Tablet) 60 mg PO NOW ONE Stop: 03/10/25 10:05 Last Admin: 03/10/25 10:26 Dose: 60 mg Documented By: NAVEEN Vital Signs Vital signs: Vital Signs - 8 hr 03/10/25 09:30 03/10/25 10:30 03/10/25 12:34 Temperature 97.8 F 98.3 F Pulse Rate 65 65 60 Respiratory Rate 18 20 18 Blood Pressure 163/74 H 146/75 H Pulse Oximetry 98 96 95 Oxygen Delivery Method Room Air Room Air Room Air MDM - URI/Sore Throat Lab Data 03/10/25 10:10 03/10/25 10:10 Labs: Lab Results 03/10/25 03/10/25 Range/Units 10:08 10:10 WBC 5.1 (4.5-11.0) X10^3/uL RBC 4.66 (4.5-5.9) X10^6/uL Hgb 12.4 L (13.5-17.5) g/dL Hct 37.8 L (41-53) % MCV 81.0 (80-100) fL MCH 26.6 (26-34) PG MCHC 32.9 (30-36) % RDW 14.4 (11.6-14.8) % Plt Count 292 (150-400) X10^3/uL Neut % (Auto) 66.1 (50-75) % Lymph % (Auto) 17.3 L (25-40) % Dawson % (Auto) 8.9 (3-14) % Eos % (Auto) 7.1 H (2-4) % Baso % (Auto) 0.6 (0-2) % Neut # (Auto) 3400 (6485-1448) /uL Lymph # (Auto) 900 L (7379-7055) /uL Dawson # (Auto) 500 (0-900) /uL Eos # (Auto) 400 (0-450) /uL Baso # (Auto) 0 (0-100) /uL Sodium 136 L (137-145) mmol/L Potassium 4.4 (3.4-5.1) mmol/L Chloride 96 L (98-107) mmol/L Carbon Dioxide 31 (22-32) mmol/L BUN 18 (9-20) mg/dL Creatinine 0.99 (0.66-1.25) mg/dL Estimated GFR > 60 (>60) mL/min BUN/Creatinine Ratio 18.2 (6-22) Glucose 172 H (70-99) mg/dL Calcium 8.7 (8.4-10.2) mg/dL Total Bilirubin 0.5 (0.2-1.3) mg/dL AST 35 (17-59) IU/L ALT 21 (<50) IU/L Alkaline Phosphatase 96 (38-126) U/L Troponin I < 0.012 (0.01-0.034) ng/mL Total Protein 8.1 (6.3-8.2) g/dL Albumin 4.5 (3.5-5.0) g/dL Globulin 3.6 (1.7-4.1) g/dL Albumin/Globulin Ratio 1.3 (1.0-2.8) SARS-CoV-2 (PCR) Negative (Negative) Influenza A (RT-PCR) Flu a negative (NEGATIVE) Influenza B (RT-PCR) Flu b negative (NEGATIVE) RSV (PCR) Negative (Negative) Imaging Data Chest x-ray: Radiologist's Impression: PROCEDURE: XR CHEST 1V INDICATIONS: bilateral wheezing TECHNIQUE: One view of the chest was acquired. COMPARISON: [facility], , XR CHEST 1V, 08/02/2024, 16:34. [facility], , XR CHEST 1V, 07/28/2024, 15:37. FINDINGS: Surgical changes and devices: None. Lungs and pleura: Lungs are clear. No pleural effusions or pneumothorax. Mediastinum: Mediastinal contours appear normal. Heart size is normal. Bones and chest wall: No suspicious bony lesions. Overlying soft tissues appear unremarkable. IMPRESSION: No acute cardiopulmonary abnormality is seen. Dictated by: Bebe Mckoy M.D. on 03/10/2025 at 9:40 Approved by: Bebe Mckoy M.D. on 03/10/2025 at 9:41 ECG Data Interpretation: EKG shows sinus bradycardia at 57 beats per minute without ischemic ST-T changes. Normal axis. No prolonged QT. MDM Narrative Medical decision making narrative: 69 years old male with history of CHF, asthma, chronic back pain, hypertension, CVA on Plavix came today complaining of nasal congestion, coughing, white phlegm, chest pain with cough, subjective fever, wheezing for the last 1 week without shortness of breath, nausea vomiting, abdominal pain, diarrhea, constipation, urine problem. On exam showed expiratory wheezing in both lungs. He alert oriented without acute distress. His CV exam, abdominal exam were normal. CBC showed no leukocytosis and hemoglobin of 12.4. His chest x-ray showed no acute finding. BMP shows sodium 136 consistent with a baseline otherwise normal BNP. LFT was normal. His troponin was normal. Her chest x-ray showed no acute finding. He was given DuoNeb nebulization in the ED and was given prednisone today 60 mg in the ED. He was sent home with albuterol inhaler, benzonatate, prednisone. Return to the ED precautions was given. Discharge Plan Departure Patient Disposition: Home Clinical Impression: Asthma exacerbation Instructions: DI for Asthma -- Adult Prescriptions: New prednisone 20 mg tablet 40 mg PO DAILY Qty: 10 0RF albuterol sulfate 90 mcg/actuation HFA aerosol inhaler 2 puff inhalation Q6H PRN (Reason: shortness of breath or wheezing) Qty: 8.5 0RF benzonatate 200 mg capsule 200 mg PO TID Qty: 15 0RF No Action carvedilol 25 mg tablet 25 mg PO BID Qty: 60 0RF Rx Instructions: must administer with a meal/food fluticasone propionate 44 mcg/actuation HFA aerosol inhaler 44 mcg inhalation BID Arnuity Ellipta 100 mcg/actuation blister with device 1 inh inhalation DAILY citalopram 10 mg Tablet 20 mg PO DAILY Qty: 30 0RF lidocaine [Lidoderm] 5 % adhesive patch,medicated 1 patch topical DAILY Qty: 15 0RF Rx Instructions: leave on most painful area for up to 12 hrs prednisone 20 mg tablet 20 mg PO DAILY Qty: 7 0RF furosemide 20 mg tablet 20 mg PO DAILY Qty: 5 0RF prednisone 10 mg tablets,dose pack See Rx Instructions .ROUTE .COMPLEX Qty: 21 0RF Rx Instructions: 6 tabs p.o. x1 day, then 5 tabs p.o. x1 day, then 4 tablets p.o. x1 day, then 3 tabs p.o. x1 day, then 2 tabs p.o. x1 day, then 1 tab p.o. x1 day methadone 10 mg Tablet 175 mg PO DAILY Patient Comments: Confirmed with Kamilla at [facility] 09/05/23 @ 10:00am clopidogrel 75 mg tablet 75 mg PO DAILY acetaminophen [Tylenol Extra Strength] 500 mg Tablet 1,000 mg PO TID pantoprazole 40 mg tablet,delayed release (DR/EC) 40 mg PO DAILY losartan 25 mg tablet 25 mg PO DAILY hydrochlorothiazide 12.5 mg tablet 12.5 mg PO DAILY aspirin 81 mg Tablet,Delayed Release (Dr/Ec) 81 mg PO BID Qty: 90 0RF ondansetron 4 mg Tablet,Disintegrating 4 mg PO Q6HR PRN (Reason: nausea and vomiting) Qty: 30 0RF polyethylene glycol 3350 17 gram Powder In Packet 17 g PO DAILY PRN (Reason: Constipation) Qty: 100 0RF oxycodone 5 mg tablet 5 mg PO Q4-6H PRN (Reason: pain (scale score 4-6)) Qty: 10 0RF Referrals: Jordon Flanagan DO [Primary Care Provider, Family Practice] Stand Alone Forms: Patient Portal/API
[2025-03-10 10:20] LABS: Add Manual Diff / Slide Review NO; Hematocrit 37.8 % (41-53); Hemoglobin 12.4 g/dL (13.5-17.5); Lymphocytes Absolute Auto 900 /uL (1100-4500); Mean Corpuscular HGB Conc 32.9 % (30-36); Mean Corpuscular Hemoglobin 26.6 PG (26-34); Mean Corpuscular Volume 81.0 fL (80-100); Platelet Count 292 X10^3/uL (150-400)
[2025-03-10] MEDS: ALBUTEROL/IPRATROPIUM 3 ML AMPUL INH ×2 (10:27→10:33)
[2025-03-10 10:29] LABS: Alanine Aminotransferase 21 IU/L (<50); Albumin 4.5 g/dL (3.5-5.0); Albumin Globulin Ratio 1.3 (1.0-2.8); Alkaline Phosphatase 96 U/L (38-126); Blood Urea Nitrogen 18 mg/dL (9-20); Calcium 8.7 mg/dL (8.4-10.2); Carbon Dioxide 31 mmol/L (22-32); Chloride 96 mmol/L (98-107); Estimated Glomerular Filt Rate > 60 mL/min (>60); Globulin 3.6 g/dL (1.7-4.1); Glucose 172 mg/dL (70-99); HEMOLYSIS 40 (0-50); Potassium 4.4 mmol/L (3.4-5.1); Sodium 136 mmol/L (137-145); Total Protein 8.1 g/dL (6.3-8.2)
[2025-03-10 10:30] VITALS: PULSE 65; RESP 20; O2SAT 96
[2025-03-10 10:41] LABS: Troponin I < 0.012 ng/mL (0.01-0.034)
[2025-03-10 10:47] LABS: COVID-19 CEPHEID 4-PLEX PCR Negative (Negative); Influenza A - CEPHEID Flu A NEGATIVE (NEGATIVE); Influenza B - CEPHEID Flu B NEGATIVE (NEGATIVE)
[2025-03-10 12:34] VITALS: BP 146/75; PULSE 60; RESP 18; TEMP 36.8; O2SAT 95
[2025-03-10 13:30] VITALS: BP 145/90; PULSE 85; RESP 20; O2SAT 95
== END 2025-03-10 13:32 | disposition home or self-care (01) ==
PROVIDERS: Emergency Provider Emergency Medicine; PCP Family Medicine
DX: J45.901 Unspecified asthma with (acute) exacerbation (principal); Z86.73 Personal history of transient ischemic attack (TIA), and cerebral infarction without residual deficits; Z79.01 Long term (current) use of anticoagulants; I10 Essential (primary) hypertension; I50.9 Heart failure, unspecified
CPT/HCPCS: 36415; 71045; 80053; 84484; 85025; 87637; 93005; 94640; 99284

== ENCOUNTER 2025-04-26 10:42 | Emergency (ER) | payer MEDICARE, MEDICAID, SELFPAY ==
[2023-09-04 08:50] VITALS: PULSE 54; RESP 18; O2SAT 95
[2024-03-01 14:43] VITALS: BMI 35.9
--- OUTSIDE RECORDS SUMMARY | 2025-03-20 00:30 | XMS_ITS ---
Author Organization [facility] Address [address] [place] [address] Care Team Providers Care Explosive Operator Name Role Phone PHILOMENA LOPEZ Primary Care Provider Estevan Yin Unavailable [phone] Allergies Allergen (clinical drug ingredient) Drug/Non Drug Allergy documented on EMR Reaction Allergy Type Onset Date Status amoxicillin Amoxicillin lip swelling Drug Allergy Active celecoxib Celebrex anaphylaxis Drug Allergy Activ e gabapentin Gabapentin nausea and vomiting Drug Allergy Active lisinopril Lisinopril cough Drug Allergy Activ e meloxicam Meloxicam anaphylaxis Drug Allergy Activ e naproxen Naproxen anaphylaxis Drug Allergy Activ e Penicillin G Benzathine fever Drug Allergy Active REASON FOR VISIT right index finger / sprain, increased pain in right finger., Right heel foot pain making it hard to walk and sleep. Medications Medication SIG (Take, Route, Frequency, Duration) Notes Start Date End Date Status oxyCODONE HCl 5 MG 1/2 tablet as needed Orally daily; Duration: 7 days As needed for pain 03/18/2025 Active Omeprazole 40 MG 1 capsule 1/2 to 1 hour before morning meal Orally Once a day Active Aspirin 81 MG 1 capsule Orally Once a day Active Tylenol OTC Active Tamsulosin HCl 0.4 MG 1 capsule Orally Once a day; Duration: 30 days 01/22/2025 Active oxyCODONE HCl 5 MG 1/2 Tablet to 1 tablet Orally two times daily; Duration: 7 days As needed for pain. 03/11/2025 Active Atorvastatin Calcium 40 MG 1 tablet Orally Once a day; Duration: 30 days Active Citalopram Hydrobromide 20 MG 1 tablet Orally Once a day; Duration: 90 days Active Triamcinolone Acetonide 0.1 % 1 application Externally twice a day; Duration: 14 days 01/14/2025 Active Losartan Potassium-HCTZ 100-25 MG 1 tablet Orally Once a day; Duration: 30 days dose increase 01/07/2025 Active Albuterol-Budesonide 90-80 MCG/ACT 2 puffs as needed Inhalation every 4 hours; Duration: 7 days deliver to [facility] 02/27/2025 Active Albuterol Sulfate HFA 108 (90 Base) MCG/ACT 1-2 puffs Inhalation every 4-6 hours as needed for shortness of breath or wheezing; Duration: 17 days Active amLODIPine Besylate 10 MG 1 tablet Orally Once a day; Duration: 30 days dose increase 02/12/2025 Active Carvedilol 25 MG 1 tablet with food Orally Twice a day; Duration: 30 days Active Problems Problem Type SNOMED Code ICD Code Onset Dates Problem Status W/U Status Risk Notes Problem Nondependent opioid abuse (426142422) Opioid use, unspecified, uncomplicated (F11.90) Active confirmed Vital Signs Blood pressure systolic 131 mm Hg 03/20/20 25 Blood pressure diastolic 73 mm Hg 025 Heart Rate 73 /min 03/20/2025 Oximetry 96 % 03/20/2025 Weight 241.6 lbs 03/20/2025 Height 67 in 03/20/2025 BMI 37.84 kg/m2 03/20/2025 Height-cm 170.18 cm 03/20/2025 Weight-kg 109.59 kg 03/20/2025 Encounters Encounter Location Date Provider Diagnosis [address] [place] [id number] 03/20/2025 Estevan Yin Pain in right finger(s) M79.644 and Opioid use, unspecified, uncomplicated F11.90 Assessments Encounter Date Diagnosis (ICD Code) Assessment Notes Treatment Notes Treatment Clinical Notes Section Notes 03/20/2025 Pain in right finger(s) (ICD-10 - M79.644) 03/20/2025 Opioid use, unspecified, uncomplicated (ICD-10 - F11.90) 03/20/2025 Other Assessment and Plan This is a 69 year old man with persistent right index finger pain after an injury, with swelling and point tenderness over the MIP joint concerning for possible fracture. An x ray has already been ordered by another provider and the patient understands the need to follow through with imaging to clarify diagnosis and guide management. Ongoing pain is likely related to an underlying fracture or significant soft tissue injury. His history of opioid use disorder and current methadone therapy complicates analgesic options. He was counseled thoroughly that all opioid prescribing and adjustments must be handled through his OTP, especially as he is currently on high dose methadone and reports tapering. He verbalizes understanding. Non opioid options have been discussed, though he reports intolerance to NSAIDs and poor response to acetaminophen. Diagnoses and Recommendations Right index finger pain, suspected fracture Continue splinting. Obtain previously ordered x ray to confirm fracture or soft tissue injury. Elevation and ice as tolerated. Return promptly if worsening swelling, redness, numbness, or loss of motion. Opioid use disorder on methadone (140 mg daily) Reinforced that all opioid related care and decisions must be coordinated through his OTP. Recommended he contact OTP to discuss pain management and any methadone taper concerns. No opioid prescriptions will be issued today in the clinic. Pain management needs, limited non opioid options Patient unable to tolerate NSAIDs; acetaminophen minimally effective by report. Continue conservative measures pending imaging results. Reassess after x ray and consider referral to ortho or hand specialist if fracture confirmed or symptoms persist. Plan Of Treatment Treatment Notes Assessment Notes Other Assessment and Plan This is a 69 year old man with persistent right index finger pain after an injury, with swelling and point tenderness over the MIP joint concerning for possible fracture. An x ray has already been ordered by another provider and the patient understands the need to follow through with imaging to clarify diagnosis and guide management. Ongoing pain is likely related to an underlying fracture or significant soft tissue injury. His history of opioid use disorder and current methadone therapy complicates analgesic options. He was counseled thoroughly that all opioid prescribing and adjustments must be handled through his OTP, especially as he is currently on high dose methadone and reports tapering. He verbalizes understanding. Non opioid options have been discussed, though he reports intolerance to NSAIDs and poor response to acetaminophen. Diagnoses and Recommendations Right index finger pain, suspected fracture Continue splinting. Obtain previously ordered x ray to confirm fracture or soft tissue injury. Elevation and ice as tolerated. Return promptly if worsening swelling, redness, numbness, or loss of motion. Opioid use disorder on methadone (140 mg daily) Reinforced that all opioid related care and decisions must be coordinated through his OTP. Recommended he contact OTP to discuss pain management and any methadone taper concerns. No opioid prescriptions will be issued today in the clinic. Pain management needs, limited non opioid options Patient unable to tolerate NSAIDs; acetaminophen minimally effective by report. Continue conservative measures pending imaging results. Reassess after x ray and consider referral to ortho or hand specialist if fracture confirmed or symptoms persist. Progress Notes * CUONG DUPONT JrDOB: 5 (69 yo M)Acc No.[id number]:03/20/2025 Progress Notes Patient: CUONG QUINTEROS Jr Account Number:[id number] Provider: TERRA Burgess :1955 A ge:69 Y S ex:Male Date:03/20/2025 Address:[address] [place], [place] [id number] Pcp:PHILOMENA LOPEZ Structured Data:[facility] bility : [facility]; [place] of Membership : [place], [place]; Enrollment Number : [id number] Subjective: * Chief Complaints: * R ight index finger / sprain, increased pain in right finger.Right heel foot pain making it hard to walk and sleep. * HPI: P atient presents:: The patient is a 69 year old man presenting today for follow up of persistent right index finger pain. He reports continued swelling and tenderness over the finger since the original injury. He states that another provider has already ordered an x ray and he understands that he must obtain this imaging. He has the order in hand. He has a history of opioid use disorder and is currently on 140 mg of methadone through his OTP. He previously had oxycodone for breakthrough pain, but this was discontinued by Dr. Figueroa. Today he asks to continue or extend that medication. We discussed at length that all opioid and pain management decisions must go through his OTP given ongoing methadone treatment and risk factors. He states that he is tapering off methadone, but again was advised to coordinate solely with OTP providers on any medication adjustments. He continues to have significant pain in the right index finger and is wearing a metal splint. He reports he cannot take NSAIDs due to stomach pain and that acetaminophen has not been helpful. * Medical History: * Surgical History: * Hospitalization/Major Diagno stic Procedure: * Social History: G PRA: D omestic Partner Violence Screening: rafal . T obacco Use Screening: denies I s a tobacco user/smoker N o, U ses e-cigarettes N o. A lcohol Use Screening: denjonathon . D epression Screening 18+ years L ittle interest or pleasure in doing things N o,?Feeling down, depressed or hopeless Y es Pt states he was one of the first people on scene when Jalen of overdose.. * Medications: T akingAtorvastatin Calcium 40 MG Tablet 1 tablet Orally Once a day Citalopram Hydrobromide 20 MG Tablet 1 tablet Orally Once a day Tamsulosin HCl 0.4 MG Capsule 1 capsule Orally Once a day oxyCODONE HCl 5 MG Tablet 1/2 tablet as needed Orally daily As needed for painAspirin 81 MG Capsule 1 capsule Orally Once a day Omeprazole 40 MG Capsule Delayed Release 1 capsule 1/2 to 1 hour before morning meal Orally Once a day Tylenol , Notes to Pharmacist: OTCCarvedilol 25 MG Tablet 1 tablet with food Orally Twice a day Losartan Potassium-HCTZ 100-25 MG Tablet 1 tablet Orally Once a day , Notes to Pharmacist: dose increaseTriamcinolone Acetonide 0.1 % Cream 1 application Externally twice a day Albuterol Sulfate HFA 108 (90 Base) MCG/ACT Aerosol Solution 1-2 puffs Inhalation every 4-6 hours as needed for shortness of breath or wheezing Albuterol-Budesonide 90-80 MCG/ACT Aerosol 2 puffs as needed Inhalation every 4 hours , Notes to Pharmacist: deliver to swinomishamLODIPine Besylate 10 MG Tablet 1 tablet Orally Once a day , Notes to Pharmacist: dose increaseoxyCODONE HCl 5 MG Tablet 1/2 Tablet to 1 tablet Orally two times daily As needed for pain.Taking Atorvastatin Calcium 40 MG Tablet 1 tablet Orally Once a day Taking Citalopram Hydrobromide 20 MG Tablet 1 tablet Orally Once a day Taking Tamsulosin HCl 0.4 MG Capsule 1 capsule Orally Once a day Taking oxyCODONE HCl 5 MG Tablet 1/2 tablet as needed Orally daily As needed for painTaking Aspirin 81 MG Capsule 1 capsule Orally Once a day Taking Omeprazole 40 MG Capsule Delayed Release 1 capsule 1/2 to 1 hour before morning meal Orally Once a day Taking Tylenol , Notes to Pharmacist: OTCTaking Carvedilol 25 MG Tablet 1 tablet with food Orally Twice a day Taking Losartan Potassium-HCTZ 100- 25 MG Tablet 1 tablet Orally Once a day , Notes to Pharmacist: dose increaseTaking Triamcinolone Acetonide 0.1 % Cream 1 application Externally twice a day Taking Albuterol Sulfate HFA 108 (90 Base) MCG/ACT Aerosol Solution 1-2 puffs Inhalation every 4-6 hours as needed for shortness of breath or wheezing Taking Albuterol-Budesonide 90-80 MCG/ACT Aerosol 2 puffs as needed Inhalation every 4 hours , Notes to Pharmacist: deliver to swinomiTakearney amLODIPine Besylate 10 MG Tablet 1 tablet Orally Once a day , Notes to Pharmacist: dose increaseTaking oxyCODONE HCl 5 MG Tablet 1/2 Tablet to 1 tablet Orally two times daily As needed for pain.DiscontinuedAzithromycin 250 MG Tablet *Clinic Dispense* 2 tablets on the first day, then 1 tablet daily for 4 days Orally Once a day Doxycycline Monohydrate 100 MG Capsule *Clinic Dispense* 1 capsule Orally twice a day Medication List reviewed and reconciled with the patientDiscontinued Azithromycin 250 MG Tablet *Clinic Dispense* 2 tablets on the first day, then 1 tablet daily for 4 days Orally Once a day Discontinued Doxycycline Monohydrate 100 MG Capsule *Clinic Dispense* 1 capsule Orally twice a day Medication List reviewed and reconciled with the patient * Allergies: A moxicillin: lip swellingCelebrex: anaphylaxisLisinopril: coughMeloxicam: anaphylaxisNaproxen: anaphylaxisPenicillin G Benzathine: feverGabapentin: nausea and vomitingno[Allergies Verified] Objective: * Vitals: B P:131/73mm Hg, HR:73/min, Oxygen sat %:96%, Wt:241.6lbs, Ht:67in, BMI:37.84Index, Ht-cm:170.18cm, Wt-k.59kg. * Examination: G eneral Examination: GENERAL APPEARANCE: a lert, pleasant, cooperative, well nourished, well developed, in no acute distress. HEART: R RR, normal S1S2, no murmurs, clicks, gallops, or rubs.. LUNGS: C TA with good air movement without evidence of wheezes, rales, or rhonchi. Chest expansion is symmetrical. MUSCULOSKELETAL: R ight hand: Right index finger, in metal splint, with visible swelling over the MIP joint. Tenderness to palpation at the MIP joint and along the proximal phalanx. Decreased active range of motion due to pain. No open wounds or deformity beyond swelling; finger aligned. Capillary refill less than 2 seconds distally. . Assessment: * Assessment: 1. P ain in right finger(s) - M79.644 (Primary) 2 . O pioid use, unspecified, uncomplicated - F11.90 Plan: * Treatment: * Procedure Codes: Forms: * Billing Information: * Visit Code: 69247 Office Visit, Est Pt., Level 4. * Procedure Codes: * Sign off status: Completed true * Provider: TERRA Burgess Date: 05/20/2024 Generated for Patrica falcon/Delta/Eddi on: 06/27/2024 10:45 AM PST History and Physical Notes * HPI (History of Present Illness) Category Sub-Category Detail Notes Category Not es Patient presents: The patient is a 69 year old man presenting today for follow up of persistent right index finger pain. He reports continued swelling and tenderness over the finger since the original injury. He states that another provider has already ordered an x ray and he understands that he must obtain this imaging. He has the order in hand. He has a history of opioid use disorder and is currently on 140 mg of methadone through his OTP. He previously had oxycodone for breakthrough pain, but this was discontinued by Dr. Figueroa. Today he asks to continue or extend that medication. We discussed at length that all opioid and pain management decisions must go through his OTP given ongoing methadone treatment and risk factors. He states that he is tapering off methadone, but again was advised to coordinate solely with OTP providers on any medication adjustments. He continues to have significant pain in the right index finger and is wearing a metal splint. He reports he cannot take NSAIDs due to stomach pain and that acetaminophen has not been helpful. Examination Category Sub-Category Detail Notes Category Not es General Examination GENERAL APPEARANCE: alert, p leasant, cooperative, well nourished, well developed, in no acute distress HEART: RRR, normal S1S2, no murmurs, clicks, gallops, or rubs. LUNGS: CTA with good air mo vement without evidence of wheezes, rales, or rhonchi. Chest expansion is symmetrical MUSCULOSKELETAL: Right hand: Right index finger, in metal splint, with visible swelling over the MIP joint. Tenderness to palpation at the MIP joint and along the proximal phalanx. Decreased active range of motion due to pain. No open wounds or deformity beyond swelling; finger aligned. Capillary refill less than 2 seconds distally.
--- NOTE | 2025-04-26 10:57 | ED.GENADULT ---
HPI - General Adult General Chief complaint: Extremity Injury, Lower Stated complaint: Sharp pain Right foot, no sleep 2 days. Time Seen by Provider: 04/26/25 10:48 History of Present Illness HPI narrative: 69-year-old gentleman history of CHF asthma chronic back pain hypertension CVA on Plavix presents with right leg and ankle pain x2 days for which he states it is the heel region of the ankle that is hurting and infected for which he placed topical steroids with no relief and ran out. He denies any fever, chills, body aches, trauma to the area, chest pain, shortness of breath, bleeding, or discharge or long-distance driving. Related Data Home Medications ?Medication ?Instructions ?Recorded ?Confirmed methadone 10 mg tablet 175 mg PO DAILY 07/12/23 03/01/24 fluticasone propionate 44 44 mcg inhalation BID 09/02/23 02/22/24 mcg/actuation HFA aerosol inhaler fluticasone furoate 100 1 inh inhalation DAILY 09/05/23 02/22/24 mcg/actuation blister powder for inhalation (Arnuity Ellipta) acetaminophen 500 mg tablet 1,000 mg PO TID 02/22/24 03/01/24 (Tylenol Extra Strength) clopidogrel 75 mg tablet 75 mg PO DAILY 02/22/24 03/01/24 hydrochlorothiazide 12.5 mg tablet 12.5 mg PO DAILY 02/22/24 03/01/24 losartan 25 mg tablet 25 mg PO DAILY 02/22/24 03/01/24 pantoprazole 40 mg tablet,delayed 40 mg PO DAILY 02/22/24 03/01/24 release Previous Rx's ?Medication ?Instructions ?Recorded carvedilol 25 mg tablet 25 mg PO BID #60 tabs 01/11/22 citalopram 10 mg tablet 20 mg (2 x 10 mg) PO DAILY #30 tabs 09/06/23 aspirin 81 mg tablet,delayed 81 mg PO BID #90 tabs 03/03/24 release ondansetron 4 mg disintegrating 4 mg PO Q6HR PRN nausea and 03/03/24 tablet vomiting #30 tabs oxycodone 5 mg tablet 5 mg PO Q4-6H PRN pain (scale 03/03/24 score 4-6) #10 tabs polyethylene glycol 3350 17 gram 17 g PO DAILY PRN Constipation 03/03/24 oral powder packet #100 ea lidocaine 5 % topical patch 1 patch topical DAILY #15 ea 05/27/24 (Lidoderm) furosemide 20 mg tablet 20 mg PO DAILY #5 tabs 07/28/24 prednisone 20 mg tablet 20 mg PO DAILY #7 tabs 07/28/24 prednisone 10 mg tablets in a dose See Rx Instructions PO .COMPLEX 08/02/24 pack #21 ea albuterol sulfate 90 mcg/actuation 2 puff inhalation Q6H PRN 03/10/25 aerosol inhaler shortness of breath or wheezing #8.5 grams benzonatate 200 mg capsule 200 mg PO TID #15 caps 03/10/25 prednisone 20 mg tablet 40 mg (2 x 20 mg) PO DAILY #10 tabs 03/10/25 bacitracin 500 unit/gram topical 1 applic topical TID #14 grams 04/26/25 ointment tramadol 50 mg tablet 50 mg PO Q6H PRN pain #20 tabs 04/26/25 tramadol 50 mg tablet 50 mg PO Q6H PRN pain #20 tabs 04/26/25 Allergies Allergy/AdvReac Type Severity Reaction Status Date / Time meloxicam (MELOXICAM) Allergy Severe ANAPHYLAXSI Verified 03/10/25 09:31 S NSAIDS (Non-Steroidal Allergy Severe Swelling Verified 03/10/25 09:31 Anti-Inflamma of Lip/Tongue/Throat Penicillins (PENICILLINS) Allergy Severe Swelling Verified 03/10/25 09:31 of Lip/Tongue/Throat chocolate flavor Allergy Intermediate Swelling Verified 03/10/25 09:31 of Lip/Tongue/Throat peanut Allergy Intermediate Swelling Verified 03/10/25 09:31 of Lip/Tongue/Throat strawberry Allergy Intermediate Swelling Verified 03/10/25 09:31 of Lip/Tongue/Throat celecoxib (From CELEBREX) Allergy Unknown Anaphylaxis Verified 03/10/25 09:31 avocado AdvReac Intermediate Swelling Verified 03/10/25 09:31 of Lip/Tongue/Throat peas AdvReac Intermediate Swelling Verified 03/10/25 09:31 of Lip/Tongue/Throat sulfite AdvReac Intermediate Migraine Verified 03/10/25 09:31 lisinopril (LISINOPRIL) AdvReac Unknown Cough Verified 03/10/25 09:31 Review of Systems Review of Systems ROS Unobtainable: All systems reviewed & are unremarkable except as noted in HPI and below Patient History Medical History Overdose of fentanyl (09/02/23) Chronic neck and back pain Systolic congestive 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, NYHA class 1 Left hemiparesis Stroke Right rib fracture Coronary artery disease Hypertension Surgical History History of cholecystectomy Hx of fusion of cervical spine History of surgery on wrist History of shoulder surgery History of laparotomy Family History Father Parkinsons Mother Cancer Brother Cancer Sister No significant medical problems Social History household members: spouse Smoking Status: Never smoker alcohol intake: former substance use type: does not use tobacco type: cigarettes alcohol intake frequency: holidays/special occasions only Exam Narrative Exam Narrative: GENERAL: [69] year old patient appears stated age. Well-developed patient, in mild distress. HEAD: Atraumatic. Normocephalic. EYES: Pupils equal round and reactive. Extraocular motions intact. No scleral icterus. No injection or drainage. EXTREMITIES: No edema or joint tenderness. Chronic venous stasis right lower extremity sensory intact +2 DP +2 PT cap refill less than 2 seconds. Dry cracked skin warm but no redness fluctuance bleeding or discharge right heel BACK: Nontender without deformity or crepitance. No flank tenderness. NEURO: AOx3. SKIN: No rash or erythema of visible areas Initial Vital Signs Initial Vital Signs: Vital Signs Temperature 97.6 F 04/26/25 11:07 Pulse Rate 71 04/26/25 11:07 Respiratory Rate 18 04/26/25 11:07 Blood Pressure 158/77 H 04/26/25 11:07 Pulse Oximetry 97 04/26/25 11:07 Oxygen Delivery Method Room Air 04/26/25 11:07 Course Orders Ordered: ED Orders 04/26/25 11:49 XR ankle RT min 3V Stat XR foot RT min 3V Stat Discontinued Medications Hydrocodone Bitart/Acetaminophen (Hydrocodone/Acet 5/325 Tablet) 1 tab PO NOW ONE Stop: 04/26/25 11:50 Last Admin: 04/26/25 12:13 Dose: 1 tab Documented By: [facility] Vital Signs Vital signs: Vital Signs - 8 hr 04/26/25 11:07 Temperature 97.6 F Pulse Rate 71 Respiratory Rate 18 Blood Pressure 158/77 H Pulse Oximetry 97 Oxygen Delivery Method Room Air Medical Decision Making Imaging Data Extremity x-ray #1: Radiologist's Impression: [address] [address] XRay Report Signed Patient: Octaviano Jj Jr MR#: [id number] : 1955 Acct:[id number] Age/Sex: 69 / M Date of Service: 04/26/25 Loc: ED Accession Number: [id number] Procedure: XR ankle RT min 3V Ordering Provider: Brian Han D.O. PROCEDURE: XR ANKLE RT MIN 3V INDICATIONS: pain in right foot/heel TECHNIQUE: 3 views of the ankle were acquired. COMPARISON: [facility], XR ANKLE RT MIN 3V, 10/22/2024, 17:08. FINDINGS: Bones: No fractures or dislocations. Ankle mortise is normally aligned. Osteoarthritic changes are noted in midfoot and hindfoot joints. Well-defined plantar and dorsal calcaneal enthesophytes are seen. No suspicious bony lesions. Soft tissues: Diffuse ankle soft tissue swelling is seen. No abnormal soft tissue calcifications. Of Achilles tendon appears normal. IMPRESSION: No acute ankle fracture or dislocation. [id number] midfoot and hindfoot joint osteoarthritis. Diffuse ankle soft tissue swelling. Calcaneal enthesophytes. Extremity x-ray #2: Radiologist's Impression: [address] [address] XRay Report Signed Patient: Octaviano Jj Jr MR#: [id number] : 1955 Acct:[id number] Age/Sex: 69 / M Date of Service: 04/26/25 Loc: ED Accession Number: [id number] Procedure: XR foot RT min 3V Ordering Provider: Brian Han D.O. PROCEDURE: XR FOOT RT MIN 3V INDICATIONS: pain in right foot/heel TECHNIQUE: 3 views of the foot were acquired. COMPARISON: [facility], , XR FOOT RT 2V, 09/05/2023, 8:38. FINDINGS: Bones: No fractures or dislocations. Osteoarthritic changes are noted throughout right foot more notably involving midfoot joints. Up plantar and dorsal calcaneal enthesophytes are seen. No suspicious bony lesions. Soft tissues: No abnormal soft tissue calcifications. IMPRESSION: No acute right foot fracture or dislocation. Right foot joint osteoarthritis. Calcaneal enthesophytes. MDM Narrative Medical decision making narrative: All lab work, quartz mounter note, medication list, previous ER visits and all imaging studies reviewed. Ankle x-ray showed no acute fracture or dislocation. Mild to moderate midfoot and hindfoot joint osteoarthritis. Diffuse ankle soft tissue swelling. Calcaneal enthesophytes. Foot x-ray showed no acute right foot fracture dislocation. Foot joint osteoarthritis. Patient given [place] here. Will be discharged on [place] and bacitracin ointment. Differential diagnosis fracture dislocation contusion arthritis gout pseudogout open wound Discharge Plan Departure Patient Disposition: Home Clinical Impression: Osteoarthritis, Open wound Instructions: DI for Arthritis Activity Restrictions/Additional Instructions: Return with new or worsening symptoms. Take your medicines directed. Follow up PCP in 1-2 weeks if no improvement in symptoms. Prescriptions: New bacitracin 500 unit/gram ointment 1 applic topical TID Qty: 14 0RF tramadol 50 mg tablet 50 mg PO Q6H PRN (Reason: pain) Qty: 20 0RF tramadol 50 mg tablet 50 mg PO Q6H PRN (Reason: pain) Qty: 20 0RF No Action carvedilol 25 mg tablet 25 mg PO BID Qty: 60 0RF Rx Instructions: must administer with a meal/food fluticasone propionate 44 mcg/actuation HFA aerosol inhaler 44 mcg inhalation BID Arnuity Ellipta 100 mcg/actuation blister with device 1 inh inhalation DAILY citalopram 10 mg Tablet 20 mg PO DAILY Qty: 30 0RF lidocaine [Lidoderm] 5 % adhesive patch,medicated 1 patch topical DAILY Qty: 15 0RF Rx Instructions: leave on most painful area for up to 12 hrs prednisone 20 mg tablet 20 mg PO DAILY Qty: 7 0RF furosemide 20 mg tablet 20 mg PO DAILY Qty: 5 0RF prednisone 10 mg tablets,dose pack See Rx Instructions .ROUTE .COMPLEX Qty: 21 0RF Rx Instructions: 6 tabs p.o. x1 day, then 5 tabs p.o. x1 day, then 4 tablets p.o. x1 day, then 3 tabs p.o. x1 day, then 2 tabs p.o. x1 day, then 1 tab p.o. x1 day methadone 10 mg Tablet 175 mg PO DAILY Patient Comments: Confirmed with Kamilla at [facility] 09/05/23 @ 10:00am clopidogrel 75 mg tablet 75 mg PO DAILY acetaminophen [Tylenol Extra Strength] 500 mg Tablet 1,000 mg PO TID pantoprazole 40 mg tablet,delayed release (DR/EC) 40 mg PO DAILY losartan 25 mg tablet 25 mg PO DAILY hydrochlorothiazide 12.5 mg tablet 12.5 mg PO DAILY aspirin 81 mg Tablet,Delayed Release (Dr/Ec) 81 mg PO BID Qty: 90 0RF ondansetron 4 mg Tablet,Disintegrating 4 mg PO Q6HR PRN (Reason: nausea and vomiting) Qty: 30 0RF polyethylene glycol 3350 17 gram Powder In Packet 17 g PO DAILY PRN (Reason: Constipation) Qty: 100 0RF oxycodone 5 mg tablet 5 mg PO Q4-6H PRN (Reason: pain (scale score 4-6)) Qty: 10 0RF prednisone 20 mg tablet 40 mg PO DAILY Qty: 10 0RF albuterol sulfate 90 mcg/actuation HFA aerosol inhaler 2 puff inhalation Q6H PRN (Reason: shortness of breath or wheezing) Qty: 8.5 0RF benzonatate 200 mg capsule 200 mg PO TID Qty: 15 0RF Referrals: Jordon Flanagan DO [Primary Care Provider, Family Practice] Stand Alone Forms: Patient Portal/API
[2025-04-26 11:07] VITALS: BP 158/77; PULSE 71; RESP 18; TEMP 36.4; O2SAT 97; BMI 37.5
--- NOTE | 2025-04-26 11:49 | DI.RAD.S_ITS ---
PROCEDURE: XR ANKLE RT MIN 3V INDICATIONS: pain in right foot/heel TECHNIQUE: 3 views of the ankle were acquired. COMPARISON: [facility], CR, XR ANKLE RT MIN 3V, 10/22/2024, 17:08. FINDINGS: Bones: No fractures or dislocations. Ankle mortise is normally aligned. Osteoarthritic changes are noted in midfoot and hindfoot joints. Well-defined plantar and dorsal calcaneal enthesophytes are seen. No suspicious bony lesions. Soft tissues: Diffuse ankle soft tissue swelling is seen. No abnormal soft tissue calcifications. Of Achilles tendon appears normal. IMPRESSION: No acute ankle fracture or dislocation. [id number] midfoot and hindfoot joint osteoarthritis. Diffuse ankle soft tissue swelling. Calcaneal enthesophytes. Dictated by: Jaime Dong M.D. on 04/26/2025 at 12:27 Approved by: Jaime Dong M.D. on 04/26/2025 at 12:28
--- NOTE | 2025-04-26 11:49 | DI.RAD.S_ITS ---
PROCEDURE: XR FOOT RT MIN 3V INDICATIONS: pain in right foot/heel TECHNIQUE: 3 views of the foot were acquired. COMPARISON: , [facility], XR FOOT RT 2V, 09/05/2023, 8:38. FINDINGS: Bones: No fractures or dislocations. Osteoarthritic changes are noted throughout right foot more notably involving midfoot joints. Up plantar and dorsal calcaneal enthesophytes are seen. No suspicious bony lesions. Soft tissues: No abnormal soft tissue calcifications. IMPRESSION: No acute right foot fracture or dislocation. Right foot joint osteoarthritis. Calcaneal enthesophytes. Dictated by: Jaime Dong M.D. on 04/26/2025 at 12:28 Approved by: Jaime Dong M.D. on 04/26/2025 at 12:30
[2025-04-26 14:43] VITALS: BP 180/78; PULSE 73; RESP 20; O2SAT 97
--- NOTE | 2025-04-26 15:39 | PC.NURSE ---
pt call to charge nurse reporting [facility] closed today, informed provider who electronically rerouted script to jeannine scott -- informed pt of change
== END 2025-04-26 14:44 | disposition home or self-care (01) ==
PROVIDERS: Emergency Provider Family Medicine; PCP Family Medicine
DX: M19.071 Primary osteoarthritis, right ankle and foot (principal); S91.001A Unspecified open wound, right ankle, initial encounter; M79.604 Pain in right leg; I10 Essential (primary) hypertension; X58.XXXA Exposure to other specified factors, initial encounter
CPT/HCPCS: 73610; 73630; 99283